=== PATIENT | female | born 1980 ===

== ENCOUNTER 2020-09-14 13:56 | Outpatient (REF) | payer OTHER, SELFPAY | END 2020-09-14 13:57 | disposition home or self-care (01) | LOC: HO.LAB 13:56 | PROVIDERS: Visit Provider Internal Medicine | DX: Z20.828 Contact with and (suspected) exposure to other viral communicable diseases (principal) | CPT/HCPCS: C9803; U0003 ==

== ENCOUNTER 2021-01-23 07:50 | Outpatient (REF) | payer BC, SELFPAY ==
[2021-01-23 10:29] LABS: SARS COV2 PCR INHOUSE POSITIVE (Negative)
== END 2021-01-23 07:51 | disposition home or self-care (01) ==
LOC: HO.LAB 07:50
PROVIDERS: Visit Provider Internal Medicine
DX: Z20.822 Contact with and (suspected) exposure to COVID-19 (principal)
CPT/HCPCS: C9803; U0003

== ENCOUNTER 2021-02-07 20:43 | Emergency (ER) | payer BC, SELFPAY ==
--- NOTE | ~2021-02-07 | US_ITS ---
EXAMINATION: US VENOUS ULTRASOUND WITH DOPPLER LOWER EXTREMITY, RIGHT CLINICAL INFORMATION: Right lower extremity swelling. COMPARISON: None TECHNIQUE: Ultrasound of the deep veins is performed from the hip to the calf with compression sonography and color and pulse Doppler assessment. Spectral analysis with color-flow imaging is performed. FINDINGS: There is normal venous compression and respiratory variation and augmented flow. The visualized common femoral vein, superficial femoral vein, profunda femoral vein, popliteal vein, and the trifurcation region shows no evidence of deep venous thrombosis. There is no significant popliteal fossa cyst. If the patient's symptoms persist, followup ultrasound in 5 days 7 days might be of value to exclude proximal propagation from a non-visualized calf vein. US/US venous duplex LE RT IMPRESSION: No DVT demonstrated in the right lower extremity.
[2021-02-07 20:48] VITALS: BP 132/86; PULSE 100; RESP 20; TEMP 36.6; O2SAT 97; BMI 51.5
--- NOTE | 2021-02-07 21:40 | ED_ITS ---
HPI - General Adult General Chief complaint: Extremity Injury, Lower Stated complaint: COVID + - FOOT SWELLING Time Seen by Provider: 02/07/21 21:26 Source: patient Mode of arrival: ambulatory Limitations: no limitations History of Present Illness HPI narrative: 40-year-old female who presents emergency department for evaluation of right leg swelling and pain after getting a cortisone shot earlier today at 2:00 p.m.. The patient states that she has a history of a meniscal root repair done 12/11/2019. The patient states that since the repair she has had persistent pain in her right knee gets cortisone shots every 3 months. She states she has had at least 6 cortisone shots with no complications. She states the initial knee surgery was complicated by right-sided DVT treated with Eliquis. Patient states that shortly after the cortisone shot she developed pain in her right knee, she describes the pain as a constant, dull ache with associated swelling of her right lateral calf muscle and knee. The pain is moderate in intensity. She did not take any pain medications prior to coming to the emergency department. She denies any increased warmth, chills or fever. She states that she does have some numbness in her right foot which has not happened in the past with cortisone injections. She states she has a history of asthma and was feeling short of breath today and she treated herself with her al buterol. The patient was diagnosed with COVID-19 infection on January 23, 2021. She states that she still has some fatigue but she believes that most her symptoms have resolved. Related Data Allergies Allergy/AdvReac Type Severity Reaction Status Date / Time Heparin Analogues Allergy Intermediate HIVES, Unverified 07/07/20 16:24 [HEPARIN AGENTS] RASH, SEVERE BRUISING Heparin Combination Allergy Unknown Uncoded 02/19/14 00:00 Review of Systems Review of Systems: Yes all other systems are reviewed and are negative PMFSH Past Medical History [facility] Narrative: Past medical history as below also includes right lower extremity DVT status post meniscal surgery, the patient denies tobacco, alcohol and drug use. Medical History Asthma Chiari malformation type II COVID-19 Diabetes Surgical History Hx of carpal tunnel repair Hx of knee surgery Hx of tonsillectomy Social History Social History Advance Directives: No Advance Directives Information Provided: Yes Physical Exam Vital Signs: Vital Signs: Last Vital Signs Temp 97.8 F 02/07/21 20:48 Pulse 100 02/07/21 20:48 Resp 20 02/07/21 20:48 BP 132/86 02/07/21 20:48 Pulse Ox 97 02/07/21 20:48 Body Mass Index 51.5 Const: General: cooperative and healthy appearing Nutritional Appearance: overweight Orientation/consciousness: oriented to person and oriented to place Limitations: no limitations HENMT: Head: Yes normal to inspection, Yes normocephalic and Yes atraumatic Ears: external ears normal General nose exam: Normal external nose present Face and sinus: Yes normal facial exam Mouth: Normal oral and palatal mucosa present Throat: Yes posterior oropharynx normal Eyes: Periorbital: periorbital findings normal Eyelids: Yes eyelids normal Conjunctivae: conjunctivae normal Sclerae: sclerae normal Corneas: corneas normal Pupils: Equal, round and reactive pupils present Direct Ophthalmoscopy: normal light reflex Neck: Neck: Yes full ROM, Yes no lymphadenopathy, Yes no meningeal signs, Yes trachea midline and Yes supple Chest: Chest palpation & inspection: normal inspection of the chest and normal palpation of entire chest wall Resp: Effort & Inspection: normal respiratory effort and able to speak in complete sentences Auscultation: clear to auscultation bilaterally Cardio: Rate: regular rate Rhythm: regular rhythm Heart sounds: S1 normal heart sound present, S2 normal heart sound present and no murmurs GI: Inspection: Yes normal to inspection Palpation (GI): Soft to palpation, nontender, no guarding, not rigid and No hepatosplenomegaly present : General: Yes no CVA tenderness Back/Spine/Pelvis: Back: no CVA tenderness Cervical Spine: normal cervical lordosis Thoracic/Lumbar Spine: thoracic and lumbar spine normal to inspection Skin: Lesions: no lesions Rashes: no rashes Wounds: no wounds Neuro: General: oriented to person, oriented to place and no meningeal signs Cranial nerves: Yes CN's II-XII intact bilaterally and Yes Equal, round and reactive pupils present Cognition (Neuro): normal cognition Motor exam (neuro): 5/5 motor strength present throughout Extrem: Other: There is a small ecchymotic area to the right lateral knee consistent with the site of injection, the patient's skin over the knee and calf is not warm to the touch, she does have some asymmetric swelling to the right lateral aspect of the calf, there are no palpable cords, no popliteal fossa fullness, negative Homans sign, neurovascular intact. There is a small linear laceration to the left pretibial area which the patient states she sustained today on a trash barrel, does not appear to be infected. General: Yes full ROM Psych: Appearance: well kempt Mental Status: mental status grossly normal Speech and movement: Normal speech and movement present Affect: normal affect Attitude: cooperative Thought process: Normal thought process present Thought content: Normal thought content present Course Course Course Narrative: 40-year-old female with a history right knee meniscal root repair 12/11/2019 with chronic right knee pain after the surgery who gets cortisone injections every 3 months to the right knee for her pain who presents to the emergency department for asymmetric right knee and past swelling after an injection today at 2:00 p.m.. Patient does have a history of DVT to the right leg which was a complication of the initial surgery. I did order a duplex ultrasound of the right lower extremity to rule out DVT. Patient's pain was treated with ibuprofen 600 mg orally. 1043: The patient's duplex ultrasound revealed no DVT. I did discuss this with the patient. The patient's pain is most likely a reaction to the cortisone shot I did discuss this with her. She was advised to take ibuprofen and Tylenol. I told her that if her pain is still there in 5 days then she will need a repeat d uplex ultrasound to rule out a propagating blood clot. She was given printed and verbal instructions. Discharge Plan Discharge Clinical Impression: Acute pain of right knee, Right calf pain Patient Disposition: Home, Self-Care Additional Instructions: The duplex ultrasound of your right leg revealed no blood clot at this time, this is very reassuring. The duplex ultrasound can miss very small blood clots from the knee down to the ankle, therefore if you still have pain in your right leg after 5 days then you need a repeat ultrasound to rule out a growing blood clot that may be traveling up your leg (propagating clot). If your doctor cannot arrange this repeat duplex ultrasound then come back to the emergency department for repeat duplex ultrasound. Take ibuprofen 200 mg pills, 3 pills every 6 hours as needed for pain. Take Tylenol (acetaminophen) 500 mg pills, 2 pills every 4 to 6 hours as needed for pain. Keep your right leg elevated and apply ice to the areas that hurt for 15 minutes 4 to 6 times a day for the next 2-3 days. Follow-up with your doctor in 2 days. Please return to the emergency department if your symptoms get worse or if you develop any symptoms that are concerning to you.
[2021-02-07] MEDS: Ibuprofen 600 MG TABLET PO (22:31)
== END 2021-02-07 22:55 | disposition home or self-care (01) ==
PROVIDERS: Emergency Provider Emergency Medicine Emergency Medical Services; PCP Internal Medicine
DX: M79.604 Pain in right leg (principal); M25.561 Pain in right knee; E11.9 Type 2 diabetes mellitus without complications; J45.909 Unspecified asthma, uncomplicated; Q07.00 Arnold-Chiari syndrome without spina bifida or hydrocephalus; Z86.16 Personal history of COVID-19
CPT/HCPCS: 93971; 99284

== ENCOUNTER 2021-10-23 09:18 | Outpatient (REF) | payer OTHER, SELFPAY ==
[2021-10-23 10:11] LABS: COVID-19 Test Negative (Negative)
== END 2021-10-23 09:19 | disposition home or self-care (01) ==
LOC: HO.LAB 09:18
PROVIDERS: Visit Provider Internal Medicine
DX: Z20.822 Contact with and (suspected) exposure to COVID-19 (principal)
CPT/HCPCS: 36415; 87635; C9803

== ENCOUNTER 2021-10-26 14:40 | Emergency (ER) | payer OTHER, SELFPAY ==
--- NOTE | 2021-10-26 | ECG_ITS ---
Test Reason : CHEST PAIN/ASTHMA Blood Pressure : / mmHG Vent. Rate : 092 BPM Atrial Rate : 092 BPM P-R Int : 120 ms QRS Dur : 078 ms QT Int : 344 ms P-R-T Axes : 038 010 028 degrees QTc Int : 425 ms Normal sinus rhythm Normal ECG When compared with ECG of 28-MAR-2020 12:09, No significant change was found Referred By: Generic ED Physician Electronically Signed By:MATEO MATOS MD
--- NOTE | ~2021-10-26 | XR_ITS ---
EXAMINATION: XR CHEST CLINICAL INFORMATION: Cough COMPARISON: 03/28/2020 TECHNIQUE: Frontal view of the chest was obtained. FINDINGS: No significant abnormality is noted involving the heart, lungs, mediastinum, bony thorax or soft tissues. XR/XR chest 1V IMPRESSION: Unremarkable examination.
[2021-10-26 15:33] VITALS: BP 154/84; PULSE 90; RESP 18; TEMP 37.1; O2SAT 100; BMI 52.1
[2021-10-26 16:09] LABS: COVID-19 Test Negative (Negative); IDNOW Serial# 9DD0AD1C
[2021-10-27 01:17] LABS: MANUAL DIFF FLAG NO
[2021-10-27 01:18] LABS: Basophils Percent Auto 0.5 % (0-2); Eosinophils Absolute Auto 0.4 X10*3/uL (0.0-0.4); Eosinophils Percent Auto 5.1 % (0-4); Hematocrit 43.4 % (37.0-47.0); Hemoglobin 14.7 g/dl (12.0-16.0); Imm Gran Abs Auto 0.04 X10*3/uL (0.00-0.03); Imm Gran Pct Auto 0.5 % (0.0-0.4); Lymphocytes Absolute Auto 2.9 X10*3/uL (1.2-4.9); Lymphocytes Percent Auto 34.6 % (20-40); Mean Corpuscular HGB Conc 33.9 g/dl (31.0-35.0); Mean Corpuscular Hemoglobin 30.4 pg (27.0-33.0); Mean Corpuscular Volume 89.7 fL (80.0-98.0); Mean Platelet Volume 9.4 fL (9.4-12.3); Monocytes Absolute Auto 0.6 X10*3/uL (0.1-1.2); Monocytes Percent Auto 7.3 % (2-11); Neutrophils Absolute Auto 4.4 x10*3/uL (2.0-8.3); Platelet Count 263 X10*3/uL (160-400); Red Blood Count 4.84 X10*6/uL (4.20-5.50); White Blood Count 8.5 X10*3/uL (4.8-10.8)
[2021-10-27 01:37] LABS: Anion Gap 12 (12-20); Blood Urea Nitrogen 8 mg/dL (9-16); Calcium 9.7 mg/dL (8.4-10.2); Carbon Dioxide 24 mmol/L (22-29); Chloride 106 mmol/L (96-108); Estimated Glomerular Filt Rate > 60; Glucose Random 276 mg/dL (60-115); Potassium 4.2 mmol/L (3.3-5.1); Sodium 138 mmol/L (135-145)
[2021-10-27 01:47] LABS: Troponin-I High Sensitivity < 3.5 ng/L (<3.5-17.0)
== END 2021-10-27 03:02 | disposition left against medical advice (07) ==
PROVIDERS: Emergency Provider Emergency Medicine; PCP Internal Medicine
DX: R07.9 Chest pain, unspecified (principal); Z20.822 Contact with and (suspected) exposure to COVID-19; J45.909 Unspecified asthma, uncomplicated
CPT/HCPCS: 36415; 71045; 80048; 84484; 85025; 87635; 93005; 99283

== ENCOUNTER 2021-10-29 11:47 | Emergency (ER) | payer OTHER, SELFPAY ==
--- NOTE | ~2021-10-29 | XR_ITS ---
EXAMINATION: XR CHEST CLINICAL INFORMATION: Dyspnea. COMPARISON: None TECHNIQUE: 2 views of the chest were obtained. FINDINGS: No significant abnormality is noted involving the heart, lungs, mediastinum, bony thorax or soft tissues. XR/XR chest 2V IMPRESSION: Unremarkable chest examination.
[2021-10-29 11:59] VITALS: BP 151/79; PULSE 91; RESP 20; TEMP 36; O2SAT 98; BMI 52.1
--- NOTE | 2021-10-29 12:26 | ED.ASTHMA ---
HPI - Asthma General Chief Complaint: Dyspnea Stated Complaint: Asthma Time Seen by Provider: 10/29/21 12:18 Source: patient Mode of arrival: ambulatory Limitations: no limitations History of Present Illness HPI Narrative: 41-year-old female with a past medical of history of asthma who currently uses albuterol inhaler and albuterol nebulizers presenting to the ED with complaints of acute exacerbation of her asthma for the past 2 weeks worse today. Reports that she is having a dry cough with wheezing/chest tightness for the past 2 weeks despite using her albuterol inhaler nebulizers that are not working at this time. She believes that she may need a course of steroids. She reports that she has been hospitalized multiple times for asthma in the past although has not been hospitalized in a while. Denies ever being intubated for asthma. She reports that her daughters both are at home positive for COVID. Although she does not believe she has COVID. She believes this is just an asthma exacerbation. She denies any fevers, chills, dizziness, headaches, neck pain/stiffness, trouble swallowing, nasal congestion/rhinorrhea, palpitations, chest pain, dizziness vision, orthopnea, nausea/vomiting/diarrhea abdominal pain, lower extremity edema or calf tenderness, weakness, recent travel or any other symptoms complaints or concerns at this time. MD complaint: asthma attack , shortness of breath and wheezing Onset (ago): week(s) (2) Severity: moderate Associated symptoms: dry cough Asthma History: childhood onset, history of frequent attacks and history of prior ED visit Treatments Prior to Arrival: inhaled bronchodilator and inhaled steroid Related Data Current Asthma Therapy: inhaled bronchodilator and inhaled steroid Previous Rx's Medication Instructions Recorded albuterol sulfate 0.63 mg/3 mL 0.63 mg (3 mL) INHALATION QID PRN 10/29/21 solution for nebulization #75 ml albuterol sulfate 90 mcg/actuation 1 inh INHALATION QID PRN #8.5 g 10/29/21 aerosol inhaler azithromycin 250 mg tablet See Rx Instructions .ROUTE 10/29/21 .COMPLEX #6 tab codeine 10 mg-guaifenesin 100 mg/5 5 ml PO Q6H PRN #120 ml 10/29/21 mL oral liquid (Guaifenesin AC) prednisone 20 mg tablet 40 mg PO DAILY 5 Days #10 tab 10/29/21 Allergies Allergy/AdvReac Type Severity Reaction Status Date / Time Heparin Analogues Allergy Intermediate HIVES, Verified 10/26/21 15:33 [HEPARIN AGENTS] RASH, SEVERE BRUISING Heparin Combination Allergy Unknown Hives Uncoded 10/26/21 15:33 Review of Systems Review of Systems: Constitutional : denies med noncompliance, no history of PE or DVT, denies recent travel, No Fever, No Chills ENT/Mouth : No Hoarseness, + sore throat, No Rhinorrhea, No Nasal congestion, No Sinus Pressure, No Ear Pain, No stridor, Eyes: No Redness, No Discharge, No Vision Changes Cardiovascular : No Chest Pain, + SOB, No Dyspnea on Exertion, No Edema, no pleurisy, Respiratory : + Cough, + wheezing, No Sputum, no stridor, no hemoptysis, Gastrointestinal : No Nausea, No Vomiting, No Diarrhea, No abdominal Pain Genitourinary : No Dysuria, No Hematuria Musculoskeletal : No joint pain/swelling, No Myalgias Extremities: no extremity swelling /pain Skin : No rash, no itching, no swelling Neuro : No Weakness, No Numbness, No Headache, No Dizziness, No Paresthesias Psych : No anxiety, depression Heme/Lymph: No Bruising, No Bleeding Endocrine : No Polyuria, No Polydipsia Yes all other systems are reviewed and are negative [facility] Past Medical History Attestation statement: The following information was validated with the patient. Medical History (Updated 10/29/21 @ 13:25 by TITUS Burton) Asthma Chiari malformation type II COVID-19 Diabetes Surgical History Hx of carpal tunnel repair Hx of knee surgery Hx of tonsillectomy Social History Social History Advance Directives: No Advance Directives Information Provided: Yes Physical Exam Vital Signs: Vital Signs: Last Vital Signs Temp 96.8 F 10/29/21 11:59 Pulse 91 10/29/21 11:59 Resp 20 10/29/21 11:59 BP 151/79 H 10/29/21 11:59 Pulse Ox 98 10/29/21 11:59 BMI result Body Mass Index 52.1 vital signs have been reviewed as normal and appeared to be correct. Blood pressure 151/79. Heart rate normal. Respiration rate normal. Temperature normal. Oxygen saturation normal. Appearance: Alert. Oriented X3. No acute distress. Head: Normal external exam. Normocephalic. Atraumatic. Eyes: PERRLA. EOMI. Conjunctiva and sclera normal. Eyelids normal. ENT: EAC normal. TM's Normal. Pharynx normal. Uvula midline. Moist mucous membranes. No trismus noted. No drooling noted. No muffled voice noted. Neck: Normal inspection. Neck supple. FROM. No adenopathy. Thyroid Normal. No meningeal signs. No neck mass noted. CVS: Normal heart rate and rhythm. Heart sound normal. Pulses normal throughout. No murmurs/rales/gallops. Respiratory: No respiratory distress. Painless inspiration. Breath sounds normal. No wheezes/rales/rhonchi noted. Chest nontender. No accessory muscle usage noted or decreased air movement noted. Abdomen: Soft and nontender. Bowel sounds normal in all 4 quadrants. No distention noted. No organomegaly noted. No visible injury noted. Back: No CVA tenderness. Full range of motion noted. No rashes/lesion/induration/fluctuance or signs of infection noted. Skin: Skin warm and dry. Normal skin color. Normal skin turgor. No rashes/lesions/lacerations noted. Extremities: No lower extremity edema. No calf tenderness. Extremities exhibit normal range of motion. Extremities nontender. Neuro: Oriented X 3. No motor deficit. No sensory deficit. Reflexes normal. Normal steady gait. No focal neuro deficits noted. Vascular: + radial pulses/+ 2 distal pedal pulses/+2 dorsalis pedis b/l. Normal cap refill. No cyanosis noted to upper extremity nails and lower extremity toes nails. Course Course Course Narrative: 41-year-old female with a past medical of history of asthma who currently uses albuterol inhaler and albuterol nebulizers presenting to the ED with complaints of acute exacerbation of her asthma for the past 2 weeks worse today. Reports that she is having a dry cough with wheezing/chest tightness for the past 2 weeks despite using her albuterol inhaler nebulizers that are not working at this time. She believes that she may need a course of steroids. She reports that she has been hospitalized multiple times for asthma in the past although has not been hospitalized in a while. Denies ever being intubated for asthma. She reports that her daughters both are at home positive for COVID. Although she does not believe she has COVID. She believes this is just an asthma exacerbation. She denies any fevers, chills, dizziness, headaches, neck pain/stiffness, trouble swallowing, nasal congestion/rhinorrhea, palpitations, chest pain, dizziness vision, orthopnea, nausea/vomiting/diarrhea abdominal pain, lower extremity edema or calf tenderness, weakness, recent travel or any other symptoms complaints or concerns at this time. On exam patient is alert oriented x3. Not in any acute distress. Lungs clear to auscultation. CV RRR. Abdomen is soft nontender. No lower extremity edema or calf tenderness is noted. Therefore at this time will obtain a chest x-ray and COVID swab. If negative will DC home with symptomatic treatment for asthma instructions to self isolate due to positive close exposure to COVID in her household her 2 daughters are currently positive to follow CDC guidelines and to return if any new or worsening symptoms follow up with primary care provider. Patient understands agrees with this plan. [facility] - Asthma Medical Records Attestation: I reviewed the patient's medical records. Lab Data Attestation: I reviewed the patient's lab results. Labs: Lab Results 10/29/21 Range/Units 12:21 COVID-19 (BRIAN) Negative (Negative) COVID-19 Clin Com See Note Imaging Data Chest x-ray: Attestation: I personally reviewed and interpreted this imaging study as follows: Radiologist's impression: FINDINGS: No significant abnormality is noted involving the heart, lungs, mediastinum, bony thorax or soft tissues. XR/XR chest 2V IMPRESSION: Unremarkable chest examination. Discharge Plan Discharge Clinical Impression: Asthma with exacerbation, Acute bronchitis with bronchospasm Patient Disposition: Home, Self-Care Instructions: Acute Bronchitis (ED), Asthma (ED) Additional Instructions: Please follow CDC guidelines for COVID 19 restrictions/quarantine Prescriptions: New albuterol sulfate 0.63 mg/3 mL solution for nebulization 0.63 mg inhalation QID PRN (Reason: shortness of breath or wheezing) Qty: 75 RF: 0 albuterol sulfate 90 mcg/actuation HFA aerosol inhaler 1 inh inhalation QID PRN (Reason: shortness of breath or wheezing) Qty: 8.5 RF: 0 azithromycin 250 mg tablet See Rx Instructions .ROUTE .COMPLEX Qty: 6 RF: 0 prednisone 20 mg tablet 40 mg PO DAILY 5 Days Qty: 10 RF: 0 codeine-guaifenesin [Guaifenesin AC] 10-100 mg/5 mL liquid 5 ml PO Q6H PRN (Reason: cold symptoms) Qty: 120 RF: 0 Referrals: Jonna Carvalho MD [Primary Care Provider] - 2 days Stand Alone Forms: Work/School Release Print Language: Argentine
[2021-10-29 12:45] LABS: COVID-19 Test Negative (Negative)
== END 2021-10-29 13:46 | disposition home or self-care (01) ==
PROVIDERS: Emergency Provider Internal Medicine; PCP Internal Medicine
DX: J45.901 Unspecified asthma with (acute) exacerbation (principal); J20.9 Acute bronchitis, unspecified; Z20.822 Contact with and (suspected) exposure to COVID-19
CPT/HCPCS: 71046; 87635; 99283

== ENCOUNTER 2021-12-08 11:23 | Emergency (ER) | payer BC, SELFPAY ==
--- NOTE | ~2021-12-08 | CT_ITS ---
EXAMINATION: CT HEAD WITHOUT CONTRAST CLINICAL INFORMATION: Headache. COMPARISON: MR brain dated from 12/17/2018. TECHNIQUE: Contiguous axial imaging was performed from the skull base to vertex without intravenous administration of contrast. This CT examination was performed using dose optimization techniques as appropriate, variously including the following: *Automated exposure control *Adjustment of mA and/or kV according to patient size (this includes techniques or standardized protocols for targeted exams where dose is matched to indication/reason for exam; i.e. extremities or head) *Use of iterative reconstruction technique DLP: 791 mGy-cm FINDINGS: There is no evidence of acute intracranial hemorrhage or edematous territorial infarction. There is no abnormal attenuation within the brain parenchyma. Bhakta-white matter differentiation is preserved. The ventricles are normal in size and configuration. No evidence for obstructive hydrocephalus. No abnormal mass effect or midline shift. Redemonstration of low-lying cerebellar tonsils extending approximately 5 mm below the foramen magnum, unchanged. No extra-axial fluid collections. No acute soft tissue or osseous abnormalities. The mastoid air cells and paranasal sinuses are clear. CT/CT head/brain wo con IMPRESSION: No evidence of acute intracranial hemorrhage or edematous territorial infarction.
[2021-12-08 11:57] VITALS: BP 144/90; PULSE 92; RESP 18; TEMP 36.7; O2SAT 98; BMI 47.5
[2021-12-08 17:02] VITALS: BP 131/83; PULSE 88; RESP 18; TEMP 36.9; O2SAT 96
--- NOTE | 2021-12-08 17:13 | ECG_ITS ---
Test Reason : HEADACHE Blood Pressure : / mmHG Vent. Rate : 091 BPM Atrial Rate : 091 BPM P-R Int : 146 ms QRS Dur : 074 ms QT Int : 372 ms P-R-T Axes : 043 -04 026 degrees QTc Int : 457 ms Normal sinus rhythm Normal ECG When compared with ECG of 26-OCT-2021 16:10, No significant change was found Referred By: Gaby Winkler Electronically Signed By:MATEO MATOS MD
--- NOTE | 2021-12-08 17:17 | ED.HA ---
HPI - Headache General Chief Complaint: Headache Stated Complaint: passing out headaches Time Seen by Provider: 12/08/21 16:29 Source: patient Mode of arrival: ambulatory Limitations: no limitations History of Present Illness HPI Narrative: 41-year-old female with a history of asthma, diet-controlled diabetes, Chiari malformation here with reports of 3-4 weeks of headaches which are generalized described as pressure with light sensitivity, nausea and intermittent blurry vision. No dizziness, vomiting, neck pain, fevers, chills. Patient tells me that the headache does improve with Tylenol and/or Excedrin at home. However does not ever completely resolved. No recent injury or trauma. Patient tells me that she did have 2 episodes of what she describes as ?passing out? which occurred while resting and not movement. No associated dizziness, palpitations, shortness of breath, vomiting, diaphoresis. Related Data Previous Rx's Medication Instructions Recorded albuterol sulfate 0.63 mg/3 mL 0.63 mg (3 mL) INHALATION QID PRN 10/29/21 solution for nebulization #75 ml albuterol sulfate 90 mcg/actuation 1 inh INHALATION QID PRN #8.5 g 10/29/21 aerosol inhaler azithromycin 250 mg tablet See Rx Instructions .ROUTE 10/29/21 .COMPLEX #6 tab codeine 10 mg-guaifenesin 100 mg/5 5 ml PO Q6H PRN #120 ml 10/29/21 mL oral liquid (Guaifenesin AC) prednisone 20 mg tablet 40 mg PO DAILY 5 Days #10 tab 10/29/21 metformin 500 mg tablet 500 mg PO BID #60 tab 12/08/21 Allergies Allergy/AdvReac Type Severity Reaction Status Date / Time Heparin Analogues Allergy Intermediate HIVES, Verified 10/26/21 15:33 [HEPARIN AGENTS] RASH, SEVERE BRUISING Heparin Combination Allergy Unknown Hives Uncoded 10/26/21 15:33 Review of Systems Review of Systems: Yes all other systems are reviewed and are negative Constitutional: Constitutional: Reports no additional constitutional complaints, Denies body ache(s), Denies chills, Denies fever(s), Reports headache(s) and Denies weakness Eyes: Eyes: Reports no additional eye complaints, Reports blurry vision, Denies change in vision and Reports photophobia ENT: Reports system reviewed and no additional complaints, except as documented, Denies dizziness, Reports headache(s), Denies nasal congestion, Denies nasal discharge and Denies neck pain Cardiovascular: Cardiovascular: Reports no additional cardiovascular complaints, Denies chest pain, Denies leg edema and Denies dyspnea Respiratory: Respiratory: Reports no additional respiratory complaints, Denies cough and Denies dyspnea Gastrointestinal: Gastrointestinal: Reports no additional gastrointestinal complaints, Denies abdominal pain, Denies diarrhea, Reports nausea and Denies vomiting Genitourinary: Genitourinary: Reports no additional female genitourinary complaints and Denies urinary incontinence Musculoskeletal: Musculoskeletal: Reports no additional musculoskeletal complaints, Denies back pain, Denies arthralgias, Denies joint swelling, Denies neck pain, Denies numbness and Denies tingling Integumentary/Breasts: Skin/Breast: Reports system reviewed and no additional complaints, except as docu and Denies rash Neurologic: Reports system reviewed and no additional complaints, except as documented, Denies Abnormal speech present, Denies dizziness, Reports headache(s), Denies numbness, Denies tingling and Denies weakness PMFSH Past Medical History Attestation statement: The following information was validated with the patient. Source: old records reviewed and nursing notes reviewed Medical History Asthma Chiari malformation type II COVID-19 Diabetes Surgical History Hx of carpal tunnel repair Hx of knee surgery Hx of tonsillectomy Social History Social History Alcohol intake: never Use of substances other than those prescribed or required for medical reasons: No Advance Directives: Yes Advance Directives Information Provided: Yes Advance Directives on File: No Physical Exam Vital Signs: Vital Signs: Last Vital Signs Temp 98.5 F 12/08/21 17:02 Pulse 94 12/08/21 17:45 Resp 18 12/08/21 17:02 BP 138/77 12/08/21 17:45 Pulse Ox 96 12/08/21 17:02 BMI result Body Mass Index 47.5 Const: General: cooperative, healthy appearing, comfortable and no acute distress Orientation/consciousness: patient oriented x3 Limitations: no limitations HENMT: Head: Yes normal to inspection Ears: hearing grossly normal bilaterally and TM's normal bilaterally General nose exam: Normal external nose present Face and sinus: Yes normal facial exam Mouth: Normal oral and palatal mucosa present Throat: Yes posterior oropharynx normal, Yes tonsils normal and Yes uvula midline Eyes: General: appearance normal, both eyes and all related structures Visual De Los Santos: normal visual de los santos by confrontation Alignment and Position: alignment normal Periorbital: periorbital findings normal Eyelids: Yes eyelids normal Conjunctivae: conjunctivae normal Sclerae: sclerae normal Corneas: corneas normal Pupils: Equal, round and reactive pupils present EOM: EOMs intact bilaterally Direct Ophthalmoscopy: photophobia Neck: Neck: Yes normal visual inspection, Yes full ROM, Yes no lymphadenopathy and Yes no meningeal signs Chest: Chest palpation & inspection: normal inspection of the chest Resp: Effort & Inspection: normal respiratory effort Auscultation: clear to auscultation bilaterally Cardio: Rate: regular rate Rhythm: regular rhythm Peripheral pulses: Peripheral pulses 2+ throughout GI: Inspection: Yes normal to inspection Palpation (GI): Soft to palpation and nontender Auscultation: normal bowel sounds Back/Spine/Pelvis: Thoracic/Lumbar Spine: thoracic and lumbar spine normal to inspection Skin: General skin exam: no rashes or lesions noted Neuro: General: patient oriented x3, no meningeal signs, no focal motor deficits and normal sensation to monofilament Cranial nerves: Yes CN's II-XII intact bilaterally, Yes Equal, round and reactive pupils present, Yes Bilaterally intact EOM present, Yes Nystagmus not present, Yes Normal facial strength present and Yes Midline tongue present Cognition (Neuro): normal cognition Speech: No Abnormal speech present Gait exam (Neuro): Normal gait present Motor exam (neuro): 5/5 motor strength present throughout Sensory Exam: Normal double simultaneous stimulation for sensation Coordination: [id number] test normal, [id number] test normal and tandem gait normal Extrem: General: Yes normal to inspection Course Course Course Narrative: 41 yo female with history of chiari malformation here with reports of generalized headache, photophobia, nausea, intermittent blurry vision over the last several weeks. Patient reports headaches constant although it does improve with Tylenol and or Excedrin at home. Patient reports she had 2 episodes of passing out yesterday which occurred at rest. Patient tells me ?it felt like I fell asleep for a moment?. No preceding symptoms of palpitations, shortness of breath, chest pain or headache. No associated seizure activity or incontinence. Vitals are stable Neurological exam is normal. Will check CT head, labs, EKG, orthostatic vital signs Will treat with Reglan, Benadryl, fluids and re-assess. 1844-labs are unremarkable with the exception of mild hyperglycemia at 311. No evidence of DKA. CT head shows Chiari malformation unchanged from previous. Orthostatics are negative. Patient tells me her headache is improving with IV fluids and medications. Likely secondary to hyperglycemia. Patient tells me that she had been on metformin for some time but then discontinued this. She has been trying to control her diet to help with her blood sugars. I did discuss with the patient that we should start her on a low-dose metformin. Will speak to her on-call primary from [facility] to ensure appropriate follow-up 1899-Spoke to professional nursing assistant for [facility]. Patient had previously been on glipizide, metformin and Victoza but has not followed up since June of 2020. Her last A1c was 8.7 03/2020. We discussed that I will start the patient on metformin twice daily and have her follow-up with them next week in the office. 2029-headache resolved. Blood sugar is trending down. We discussed it is critical that she follow-up outpatient with her primary care doctor. Reviewed worrisome signs and symptoms of when to return to the emergency department. Comfortable discharge home. MDM - Headache Medical Records Attestation: I reviewed the patient's medical records. Lab Data Attestation: I reviewed the patient's lab results. Result diagrams: 12/08/21 17:34 12/08/21 17:34 Labs: Lab Results 12/08/21 12/08/21 12/08/21 Range/Units 17:34 17:34 17:34 WBC 10.6 (4.8-10.8) X10*3/uL RBC 4.94 (4.20-5.50) X10*6/uL Hgb 15.2 (12.0-16.0) g/dl Hct 43.4 (37.0-47.0) % MCV 87.9 (80.0-98.0) fL MCH 30.8 (27.0-33.0) pg MCHC 35.0 (31.0-35.0) g/dl RDW 12.0 (11.0-16.0) % Plt Count 295 (160-400) X10*3/uL MPV 9.5 (9.4-12.3) fL Immature Gran % (Auto) 0.9 H (0.0-0.4) % Neut % (Auto) 59.1 (45-73) % Lymph % (Auto) 30.4 (20-40) % Luce % (Auto) 6.3 (2-11) % Eos % (Auto) 2.8 (0-4) % Baso % (Auto) 0.5 (0-2) % Lymph # (Auto) 3.2 (1.2-4.9) X10*3/uL Luce # (Auto) 0.7 (0.1-1.2) X10*3/uL Eos # (Auto) 0.3 (0.0-0.4) X10*3/uL Baso # (Auto) 0.1 (0.0-0.2) X10*3/uL Abs Immat Gran (auto) 0.10 H (0.00-0.03) X10*3/uL Absolute Neuts (auto) 6.2 (2.0-8.3) x10*3/uL Absolute Nucleated RBC 0.000 (0.0-0.012) X10*3/uL Nucleated RBC % (auto) 0.0 (0.0-0.2) /100WBC Sodium 135 (135-145) mmol/L Potassium 4.3 (3.3-5.1) mmol/L Chloride 102 (96-108) mmol/L Carbon Dioxide 25 (22-29) mmol/L Anion Gap 12 (12-20) BUN 8 L (9-16) mg/dL Creatinine 0.70 (0.5-1.4) mg/dL Estim Creat Clear Calc 114.4 Estimated GFR > 60 POC Glucose (60-115) mg/dL Random Glucose 311 H (60-115) mg/dL Calcium 9.3 (8.4-10.2) mg/dL Magnesium 1.9 (1.6-2.6) mg/dL Total Bilirubin 0.8 (0.0-1.0) mg/dL Direct Bilirubin 0.3 (0.0-0.5) mg/dL AST 30 (5-31) U/L ALT 70 H (0-31) U/L Alkaline Phosphatase 86 (39-117) U/L Troponin I High Sens < 3.5 (<3.5-17.0) ng/L Total Protein 6.8 (6.5-8.0) g/dL Albumin 4.2 (3.5-5.0) g/dL Urine Test (NEGATIVE) COVID-19 (BRIAN) (Negative) COVID-19 Clin Com 12/08/21 12/08/21 12/08/21 Range/Units 17:34 17:34 19:48 WBC (4.8-10.8) X10*3/uL RBC (4.20-5.50) X10*6/uL Hgb (12.0-16.0) g/dl Hct (37.0-47.0) % MCV (80.0-98.0) fL MCH (27.0-33.0) pg MCHC (31.0-35.0) g/dl RDW (11.0-16.0) % Plt Count (160-400) X10*3/uL MPV (9.4-12.3) fL Immature Gran % (Auto) (0.0-0.4) % Neut % (Auto) (45-73) % Lymph % (Auto) (20-40) % Luce % (Auto) (2-11) % Eos % (Auto) (0-4) % Baso % (Auto) (0-2) % Lymph # (Auto) (1.2-4.9) X10*3/uL Luce # (Auto) (0.1-1.2) X10*3/uL Eos # (Auto) (0.0-0.4) X10*3/uL Baso # (Auto) (0.0-0.2) X10*3/uL Abs Immat Gran (auto) (0.00-0.03) X10*3/uL Absolute Neuts (auto) (2.0-8.3) x10*3/uL Absolute Nucleated RBC (0.0-0.012) X10*3/uL Nucleated RBC % (auto) (0.0-0.2) /100WBC Sodium (135-145) mmol/L Potassium (3.3-5.1) mmol/L Chloride (96-108) mmol/L Carbon Dioxide (22-29) mmol/L Anion Gap (12-20) BUN (9-16) mg/dL Creatinine (0.5-1.4) mg/dL Estim Creat Clear Calc Estimated GFR POC Glucose 280 H (60-115) mg/dL Random Glucose (60-115) mg/dL Calcium (8.4-10.2) mg/dL Magnesium (1.6-2.6) mg/dL Total Bilirubin (0.0-1.0) mg/dL Direct Bilirubin (0.0-0.5) mg/dL AST (5-31) U/L ALT (0-31) U/L Alkaline Phosphatase (39-117) U/L Troponin I High Sens (<3.5-17.0) ng/L Total Protein (6.5-8.0) g/dL Albumin (3.5-5.0) g/dL Urine Test NEGATIVE (NEGATIVE) COVID-19 (BRIAN) Negative (Negative) COVID-19 Clin Com See Note Imaging Data CT scan - head: Attestation: I personally reviewed and interpreted this imaging study as follows: Radiologist's impression: FINDINGS: There is no evidence of acute intracranial hemorrhage or edematous territorial infarction. There is no abnormal attenuation within the brain parenchyma. Bhakta-white matter differentiation is preserved. The ventricles are normal in size and configuration. No evidence for obstructive hydrocephalus. No abnormal mass effect or midline shift. Redemonstration of low-lying cerebellar tonsils extending approximately 5 mm below the foramen magnum, unchanged. No extra-axial fluid collections. No acute soft tissue or osseous abnormalities. The mastoid air cells and paranasal sinuses are clear. ? CT/CT head/brain wo con IMPRESSION: No evidence of acute intracranial hemorrhage or edematous territorial infarction. ECG Data Attestation: I personally reviewed and interpreted this ECG as follows: ECG interpretation date: 12/08/21 ECG interpretation time: 17:24 Interpretation: Normal sinus rhythm with a rate of 91, normal KS, normal QRS, normal QT Discharge Plan Discharge Clinical Impression: Hyperglycemia Patient Disposition: Home, Self-Care Instructions: Diabetic Hyperglycemia (ED) Additional Instructions: YOU NEED TO CALL YOUR PRIMARY CARE DOCTOR AND FOLLOW-UP WITH THEM NEXT WEEK Your blood sugar is very elevated which is likely why you are having symptoms of headache and blurry vision. Your CT scan shows your Chiari malformation is unchanged. Your additional lab work all looks very good. You need to follow-up closely with your primary care doctor. Uncontrolled high blood sugar is very dangerous Prescriptions: New metformin 500 mg tablet 500 mg PO BID Qty: 60 0RF No Action albuterol sulfate 0.63 mg/3 mL solution for nebulization 0.63 mg inhalation QID PRN (Reason: shortness of breath or wheezing) Qty: 75 0RF albuterol sulfate 90 mcg/actuation HFA aerosol inhaler 1 inh inhalation QID PRN (Reason: shortness of breath or wheezing) Qty: 8.5 0RF azithromycin 250 mg tablet See Rx Instructions .ROUTE .COMPLEX Qty: 6 0RF Rx Instructions: take 500 mg today (day 1), then 250 mg for 4 days (days 2-5) prednisone 20 mg tablet 40 mg PO DAILY 5 Days Qty: 10 0RF codeine-guaifenesin [Guaifenesin AC] 10-100 mg/5 mL liquid 5 ml PO Q6H PRN (Reason: cold symptoms) Qty: 120 0RF Referrals: Jonna Carvalho MD [Primary Care Provider] - 1 week Interventions: ED Discharge Assessment Last Done: 12/08/21 20:24 Discharge Date/Time: 12/08/21 20:25
[2021-12-08] MEDS: 0.9 % Sodium Chloride 1,000 ML 999 ML IV (17:37)
[2021-12-08] MEDS: diphenhydrAMINE HCL 50 MG/ML VIAL 25 MG IVPUSH (17:38)
[2021-12-08 17:39] VITALS: BP 128/62; PULSE 88
[2021-12-08] MEDS: Metoclopramide HCl 10 MG/2 ML VIAL IVPUSH (17:39)
[2021-12-08 17:42] VITALS: BP 138/74; PULSE 81
[2021-12-08 17:45] VITALS: BP 138/77; PULSE 94
--- NOTE | 2021-12-08 17:46 | PC.NURSE ---
slight dizziness with orthos but able to complete. skin pwd. c/o headache. sound and photosensativity. no neuro deficits.
[2021-12-08 17:55] LABS: MANUAL DIFF FLAG NO
[2021-12-08 17:58] LABS: UPreg QC Valid YES; Urine Pregnancy NEGATIVE (NEGATIVE)
[2021-12-08 18:10] LABS: COVID-19 Test Negative (Negative)
[2021-12-08 18:15] LABS: Basophils Absolute Auto 0.1 X10*3/uL (0.0-0.2); Basophils Percent Auto 0.5 % (0-2); Eosinophils Absolute Auto 0.3 X10*3/uL (0.0-0.4); Eosinophils Percent Auto 2.8 % (0-4); Hematocrit 43.4 % (37.0-47.0); Hemoglobin 15.2 g/dl (12.0-16.0); Imm Gran Pct Auto 0.9 % (0.0-0.4); Lymphocytes Absolute Auto 3.2 X10*3/uL (1.2-4.9); Lymphocytes Percent Auto 30.4 % (20-40); Mean Corpuscular Hemoglobin 30.8 pg (27.0-33.0); Mean Corpuscular Volume 87.9 fL (80.0-98.0); Mean Platelet Volume 9.5 fL (9.4-12.3); Monocytes Absolute Auto 0.7 X10*3/uL (0.1-1.2); Monocytes Percent Auto 6.3 % (2-11); Neutrophils Absolute Auto 6.2 x10*3/uL (2.0-8.3); Neutrophils Percent Auto 59.1 % (45-73); Platelet Count 295 X10*3/uL (160-400); Red Blood Count 4.94 X10*6/uL (4.20-5.50); White Blood Count 10.6 X10*3/uL (4.8-10.8)
[2021-12-08 18:16] LABS: Alanine Aminotransferase 70 U/L (0-31); Albumin Level 4.2 g/dL (3.5-5.0); Alkaline Phosphatase 86 U/L (39-117); Anion Gap 12 (12-20); Aspartate Amino Transferase 30 U/L (5-31); Bilirubin Direct 0.3 mg/dL (0.0-0.5); Bilirubin Total 0.8 mg/dL (0.0-1.0); Blood Urea Nitrogen 8 mg/dL (9-16); Calcium 9.3 mg/dL (8.4-10.2); Carbon Dioxide 25 mmol/L (22-29); Chloride 102 mmol/L (96-108); Creatinine Clr Calc Pharmacy 114.4; Estimated Glomerular Filt Rate > 60; Glucose Random 311 mg/dL (60-115); Magnesium 1.9 mg/dL (1.6-2.6); Potassium 4.3 mmol/L (3.3-5.1); Sodium 135 mmol/L (135-145); Total Protein 6.8 g/dL (6.5-8.0)
[2021-12-08 18:18] LABS: Troponin-I High Sensitivity < 3.5 ng/L (<3.5-17.0)
--- NOTE | 2021-12-08 18:18 | PC.NURSE ---
head is resolving. pt resting with eyes closed.
[2021-12-08 19:51] LABS: Glucose, Whole Blood 280 mg/dL (60-115)
== END 2021-12-08 20:25 | disposition home or self-care (01) ==
PROVIDERS: Nurse Practitioner Family; Emergency Provider Emergency Medicine; PCP Internal Medicine
DX: E11.65 Type 2 diabetes mellitus with hyperglycemia (principal); R51.9 Headache, unspecified; Z20.822 Contact with and (suspected) exposure to COVID-19; Q07.00 Arnold-Chiari syndrome without spina bifida or hydrocephalus
CPT/HCPCS: 36415; 70450; 80048; 80076; 81025; 82947; 83735; 84484; 85025; 87635; 93005; 96361; 96374; 96375; 99284; 99285; J1200; J2765

== ENCOUNTER 2021-12-22 12:10 | Emergency (ER) | payer BC, SELFPAY ==
--- NOTE | ~2021-12-22 | US_ITS ---
EXAMINATION: US VENOUS ULTRASOUND WITH DOPPLER LOWER EXTREMITY, RIGHT CLINICAL INFORMATION: Right leg pain COMPARISON: February 07, 2021 TECHNIQUE: Ultrasound of the deep veins is performed from the hip to the calf with compression sonography and color and pulse Doppler assessment. Spectral analysis with color-flow imaging is performed. FINDINGS: There is normal venous compression and respiratory variation and augmented flow. The visualized common femoral vein, superficial femoral vein, profunda femoral vein, popliteal vein, and the trifurcation region shows no evidence of deep venous thrombosis. There is no significant popliteal fossa cyst. If the patient's symptoms persist, followup ultrasound in 5 days 7 days might be of value to exclude proximal propagation from a non-visualized calf vein. US/US venous duplex LE RT IMPRESSION: No acute DVT demonstrated in the right lower extremity.
[2021-12-22 12:15] VITALS: BP 128/68; PULSE 79; RESP 18; TEMP 36.1; O2SAT 98; BMI 47.5
[2021-12-22 14:09] VITALS: BP 148/55; PULSE 72; RESP 18; O2SAT 98
--- NOTE | 2021-12-22 15:27 | ED.EXTPRO ---
HPI - Extremity Problem General Chief complaint: Extremity Problem Stated complaint: Swollen r leg Time Seen by Provider: 12/22/21 12:23 History of Present Illness HPI Narrative: Patient complains of right calf and lower leg swelling x1 day similar to prior DVT, there is no injury there is no shortness of breath there is no chest pain Related Data Previous Rx's Medication Instructions Recorded albuterol sulfate 0.63 mg/3 mL 0.63 mg (3 mL) INHALATION QID PRN 10/29/21 solution for nebulization #75 ml albuterol sulfate 90 mcg/actuation 1 inh INHALATION QID PRN #8.5 g 10/29/21 aerosol inhaler azithromycin 250 mg tablet See Rx Instructions .ROUTE 10/29/21 .COMPLEX #6 tab codeine 10 mg-guaifenesin 100 mg/5 5 ml PO Q6H PRN #120 ml 10/29/21 mL oral liquid (Guaifenesin AC) prednisone 20 mg tablet 40 mg PO DAILY 5 Days #10 tab 10/29/21 metformin 500 mg tablet 500 mg PO BID #60 tab 12/08/21 apixaban 5 mg (74 tabs) tablets in 5 mg PO BID 30 Days #60 ea 12/22/21 a dose pack (Eliquis DVT-PE Treat 30D Start) Allergies Allergy/AdvReac Type Severity Reaction Status Date / Time Heparin Analogues Allergy Intermediate HIVES, Verified 12/22/21 12:19 [HEPARIN AGENTS] RASH, SEVERE BRUISING Heparin Combination Allergy Unknown Hives Uncoded 10/26/21 15:33 Review of Systems Review of Systems: Positive for right lower leg pain and swelling similar to prior DVT Negatives are no fever no chills no dizziness or weakness no fainting no feeling faint no headache no neck pain no chest pain no back pain no shortness of breath no difficulty breathing no skin rash Yes all other systems are reviewed and are negative PMFSH Past Medical History Source: nursing notes reviewed Medical History (Updated 12/23/21 @ 00:00 by Jennifer Joseph) Asthma Chiari malformation type II COVID-19 Diabetes DVT (deep venous thrombosis) Surgical History Hx of carpal tunnel repair Hx of knee surgery Hx of tonsillectomy Social History Social History Alcohol intake: never Advance Directives: No Advance Directives Information Provided: No Patient : No Physical Exam Vital Signs: Vital Signs: Last Vital Signs Temp 97 F 12/22/21 12:15 Pulse 72 12/22/21 14:09 Resp 18 12/22/21 14:09 BP 148/55 H 12/22/21 14:09 Pulse Ox 98 12/22/21 14:09 BMI result Body Mass Index 47.5 General appearance comfortable no acute distress Head is normocephalic atraumatic The pharynx is clear no redness swelling or exudate Neck is supple The chest is clear to auscultation with full symmetric equal breath sounds Heart no murmur Abdomen soft nontender Extremities the right calf is swollen and tender but not red or warm there are no wounds, the leg is otherwise neurovascular intact with no rashes There is full range of motion in all joints of the right leg and the gait is normal Neuro no motor sensory deficits Course Course Course Narrative: Patient with symptoms of calf swelling and pain in the back of right leg similar to a prior blood clot had a negative ultrasound not showing DVT Patient is taking an air pain fight tomorrow Case was discussed with attending physician at of concerned that this could actually be a blood clot not yet seen on ultrasound who agreed that given patient is flying tomorrow and we have no other explanation with no injury or infection likely in the right lower leg to treat this as a possible blood clot with blood thinners before her flight and to follow with primary doctor and glass pulverizer equipment operator to determine if any further treatment is needed and she was strongly advised to get a repeat ultrasound in 5 days to a week Discharge Plan Discharge Clinical Impression: Calf swelling Patient Disposition: Home, Self-Care Additional Instructions: Your ultrasound was negative today But as it feels exactly as your prior DVT and the right calf is obviously swollen with no injury and no sign of infection there is still a chance that you have a DVT that was not seen on the ultrasound Because you are flying tomorrow which increases the risk of clotting we are starting Eliquis for the possibility that you may actually have a DVT You should call primary doctor and probably get a referral to glass pulverizer equipment operator as decision about whether to continue Eliquis is complicated You will need a repeat ultrasound in 5-7 days as this 1 is negative but the clinical suspicion for blood clot was very high Do not take Motrin or aspirin with Eliquis is they can increase risk of bleeding Return to the ER any time for shortness of breath, worse pain and swelling, bleeding from any source any worse condition or any concerns Prescriptions: New Eliquis DVT-PE Treat 30D Start 5 mg (74 tabs) tablets,dose pack 5 mg PO BID 30 Days Qty: 60 0RF Rx Instructions: Take 2 tablets, 10 mg, twice a day for 7 days Then after 7 days take 1 tablet, 5 mg once a day No Action metformin 500 mg tablet 500 mg PO BID Qty: 60 0RF albuterol sulfate 0.63 mg/3 mL solution for nebulization 0.63 mg inhalation QID PRN (Reason: shortness of breath or wheezing) Qty: 75 0RF albuterol sulfate 90 mcg/actuation HFA aerosol inhaler 1 inh inhalation QID PRN (Reason: shortness of breath or wheezing) Qty: 8.5 0RF azithromycin 250 mg tablet See Rx Instructions .ROUTE .COMPLEX Qty: 6 0RF Rx Instructions: take 500 mg today (day 1), then 250 mg for 4 days (days 2-5) prednisone 20 mg tablet 40 mg PO DAILY 5 Days Qty: 10 0RF codeine-guaifenesin [Guaifenesin AC] 10-100 mg/5 mL liquid 5 ml PO Q6H PRN (Reason: cold symptoms) Qty: 120 0RF Interventions: ED Discharge Assessment Last Done: 12/22/21 15:44 Discharge Date/Time: 12/22/21 15:45
[2021-12-22] MEDS: Apixaban 5 MG TABLET PO ×2 (15:33)
== END 2021-12-22 15:45 | disposition home or self-care (01) ==
PROVIDERS: Emergency Provider Emergency Medicine; PCP Internal Medicine
DX: R60.0 Localized edema (principal); Z79.899 Other long term (current) drug therapy
CPT/HCPCS: 93971; 99284

== ENCOUNTER 2022-01-01 15:09 | Emergency (ER) | payer BC, SELFPAY ==
--- NOTE | ~2022-01-01 | US_ITS ---
EXAMINATION: US VENOUS ULTRASOUND WITH DOPPLER LOWER EXTREMITY, RIGHT CLINICAL INFORMATION: Swelling and pain. COMPARISON: 12/22/2021. TECHNIQUE: Ultrasound of the deep veins is performed from the hip to the calf with compression sonography and color and pulse Doppler assessment. Spectral analysis with color-flow imaging is performed. FINDINGS: There is normal venous compression and respiratory variation and augmented flow. The visualized common femoral vein, superficial femoral vein, profunda femoral vein, popliteal vein, and the trifurcation region shows no evidence of deep venous thrombosis with the caveat and the peroneal vein was not visualized. There is no significant popliteal fossa cyst. If the patient's symptoms persist, followup ultrasound in 5 days 7 days might be of value to exclude proximal propagation from a non-visualized calf vein. US/US venous duplex LE RT IMPRESSION: No DVT demonstrated in the right lower extremity with the caveat that the peroneal vein was not visualized.
[2022-01-01 16:28] VITALS: BP 140/86; PULSE 87; RESP 17; TEMP 36.6; O2SAT 98; BMI 41.2
--- NOTE | 2022-01-01 16:53 | ED.LOWEXIN ---
HPI - Extremity Injury (Lower) General Chief Complaint: Extremity Injury, Lower Stated Complaint: right leg painful and swollen Time Seen by Provider: 01/01/22 16:27 Source: patient Mode of arrival: ambulatory Limitations: no limitations History of Present Illness HPI Narrative: Patient is a 41 year old female presenting to the emergency department today with right lower leg swelling. Patient states that she was seen here 2 weeks ago for right lower leg swelling and at that time, had an ultrasound done that was negative for DVT. Patient states that she was seen at her PCPs office who started her on Eliquis and recommended she come here for a repeat US. Patient states that the swelling has not gone down. Patient denies any dizziness, lightheadedness, abdominal pain, nausea, vomiting, fever, chills, blurry vision, double vision, loss of vision, chest pain, difficulty breathing, shortness of breath, back pain, night sweats, pain with urination, increased urinary frequency, increased urinary urgency, blood in her urine or stool, syncope or a near syncopal episode, recent trauma or falls, bowel incontinence, bladder incontinence, bowel retention, bladder retention, or any other complaints at this time. MD complaint: other (lower leg swelling) Onset (ago): week(s) Severity: mild Relieving factors: nothing Exacerbating factors: nothing Other symptoms: none Related Data Previous Rx's Medication Instructions Recorded albuterol sulfate 0.63 mg/3 mL 0.63 mg (3 mL) INHALATION QID PRN 10/29/21 solution for nebulization #75 ml albuterol sulfate 90 mcg/actuation 1 inh INHALATION QID PRN #8.5 g 10/29/21 aerosol inhaler azithromycin 250 mg tablet See Rx Instructions .ROUTE 10/29/21 .COMPLEX #6 tab codeine 10 mg-guaifenesin 100 mg/5 5 ml PO Q6H PRN #120 ml 10/29/21 mL oral liquid (Guaifenesin AC) prednisone 20 mg tablet 40 mg PO DAILY 5 Days #10 tab 10/29/21 metformin 500 mg tablet 500 mg PO BID #60 tab 12/08/21 apixaban 5 mg (74 tabs) tablets in 5 mg PO BID 30 Days #60 ea 12/22/21 a dose pack (Eliquis DVT-PE Treat 30D Start) Allergies Allergy/AdvReac Type Severity Reaction Status Date / Time Heparin Analogues Allergy Intermediate HIVES, Verified 12/22/21 12:19 [HEPARIN AGENTS] RASH, SEVERE BRUISING Heparin Combination Allergy Unknown Hives Uncoded 10/26/21 15:33 Review of Systems Constitutional: Constitutional: Reports no additional constitutional complaints, Denies chills, Denies fever(s) and Denies night sweats Eyes: Eyes: Reports no additional eye complaints, Denies blurry vision, Denies change in vision, Denies diplopia, Denies eye discharge, Denies loss of vision and Denies eye pain ENT: Denies dizziness Cardiovascular: Cardiovascular: Reports no additional cardiovascular complaints, Denies chest pain, Denies lightheadedness, Denies Loss of Consciousness and Denies dyspnea Respiratory: Respiratory: Reports no additional respiratory complaints and Denies dyspnea Gastrointestinal: Gastrointestinal: Reports no additional gastrointestinal complaints, Denies abdominal pain, Denies melena, Denies hematochezia, Denies change in bowel habits and Denies change in stool character Genitourinary: Genitourinary: Denies hematuria, Denies urinary frequency, Denies dysuria, Denies urinary incontinence, Denies urinary hesitancy and Denies urinary urgency Musculoskeletal: Musculoskeletal: Reports no additional musculoskeletal complaints, Denies numbness and Denies tingling Comments: right lower leg swelling Neurologic: Denies dizziness, Denies loss of vision, Denies numbness and Denies tingling Psychiatric: Psychiatric: Reports no additional psychiatric complaints Endocrine: Endocrine: Reports no additional endocrine complaints Hematologic/Lymphatic: Hematologic/Lymphatic: Reports no additional hematologic/lymphatic complaints Allergic/Immunologic: Allergic/Immunologic: Reports no additional allergic/immunologic complaints [facility] Past Medical History Attestation statement: The following information was validated with the patient. Source: old records reviewed Medical History Asthma Chiari malformation type II COVID-19 Diabetes DVT (deep venous thrombosis) Surgical History Hx of carpal tunnel repair Hx of knee surgery Hx of tonsillectomy Social History Social History Alcohol intake: never Advance Directives: No Advance Directives Information Provided: No Physical Exam Vital Signs: Vital Signs: Last Vital Signs Temp 98 F 01/01/22 16:28 Pulse 87 03/14/22 16:28 Resp 17 01/01/22 16:28 BP 140/86 H 01/01/22 16:28 Pulse Ox 98 01/01/22 16:28 BMI result Body Mass Index 41.2 Const: General: cooperative, no acute distress, alert and awake Nutritional Appearance: well nourished Orientation/consciousness: patient oriented x3 Limitations: no limitations HENMT: Head: Yes normal to inspection and Yes atraumatic Ears: hearing grossly normal bilaterally and external ears normal General nose exam: Normal external nose present, no nasal discharge noted and no epistaxis Face and sinus: Yes normal facial exam, No abrasion and No laceration Mouth: Normal oral and palatal mucosa present, no drooling and no muffled voice Eyes: General: appearance normal, both eyes and all related structures Periorbital: periorbital findings normal Eyelids: Yes eyelids normal Conjunctivae: conjunctivae normal Pupils: Equal, round and reactive pupils present EOM: EOMs intact bilaterally Neck: Neck: Yes normal visual inspection, Yes full ROM and Yes no lymphadenopathy Chest: Chest palpation & inspection: normal inspection of the chest Resp: Effort & Inspection: normal respiratory effort and able to speak in complete sentences Auscultation: clear to auscultation bilaterally Cardio: Rate: regular rate Rhythm: regular rhythm GI: Inspection: Yes normal to inspection Neuro: General: patient oriented x3 and moves all extremities Cranial nerves: Yes Equal, round and reactive pupils present Cognition (Neuro): normal cognition Motor exam (neuro): 5/5 motor strength present throughout Sensory Exam: Normal double simultaneous stimulation for sensation Coordination: [id number] test normal Extrem: Other: right lower leg swelling, no erythema, no edema, no warmth General: Yes normal to inspection, Yes full ROM and Yes capillary refill normal Psych: Appearance: grossly normal Mental Status: mental status grossly normal Affect: normal affect Attitude: cooperative Thought process: Normal thought process present Thought content: Normal thought content present Insight: Good insight present (Psych) MDM - Extremity Injury (Lower) MDM Narrative Medical decision making narrative: Patient is a 41 year old female presenting to the emergency department today with right lower leg swelling. Patient's physical exam showed mild right lower leg swelling with no erythema, warmth, or edema. Patient's venous US of the right lower leg showed no acute process. I explained my physical exam findings as well as all test results to the patient. I answered all questions asked by the patient. I stressed the importance of the patient taking her medication, including her Eliquis, as prescribed. I explained to the patient that elevation and compression stocking use of the lower extremities could also be helpful. I stressed the importance of the patient following up with her primary care provider. I stressed the importance of the patient returning to the emergency department immediately if her symptoms were to worsen or if she were to develop any dizziness, shortness of breath, difficulty breathing, chest pain, blurry vision, loss of vision, nausea, vomiting, abdominal pain, fever, chills, back pain, or any other complaints. Patient verbalized agreement and understanding with this treatment plan and discharge. Differential Diagnosis Differential diagnosis: Unlikely ankle sprain and strain (right lower leg swelling, lymphedema, DVT) or ankle fracture Medical Records Attestation: I reviewed the patient's medical records. Imaging Data Venous US: Attestation: I personally reviewed and interpreted this imaging study as follows: Radiologist's impression: EXAMINATION:? US VENOUS ULTRASOUND WITH DOPPLER LOWER EXTREMITY, RIGHT CLINICAL INFORMATION:? Swelling and pain. COMPARISON:? 12/22/2021. TECHNIQUE: Ultrasound of the deep veins is performed from the hip to the calf with compression sonography and color and pulse Doppler assessment. Spectral analysis with color-flow imaging is performed. FINDINGS: There is normal venous compression and respiratory variation and augmented flow. The visualized common femoral vein, superficial femoral vein, profunda femoral vein, popliteal vein, and the trifurcation region shows no evidence of deep venous thrombosis with the caveat and the peroneal vein was not visualized. ? There is no significant popliteal fossa cyst. If the patient's symptoms persist, followup ultrasound in 5 days 7 days might be of value to exclude proximal propagation from a non-visualized calf vein. US/US venous duplex LE RT IMPRESSION: No DVT demonstrated in the right lower extremity with the caveat that the peroneal vein was not visualized. Dictated By: Susana Barbour Signed By: Electronically signed by Susana? Km 01/01/22 170 Discharge Plan Discharge Clinical Impression: Localized swelling of right lower leg Patient Disposition: Home, Self-Care Instructions: Leg Edema (ED) Additional Instructions: Follow up with your primary care provider. Return to the emergency department immediately if your symptoms worsen or if you develop any dizziness, shortness of breath, difficulty breathing, chest pain, blurry vision, loss of vision, nausea, vomiting, abdominal pain, fever, chills, back pain, or any other complaints. Prescriptions: No Action metformin 500 mg tablet 500 mg PO BID Qty: 60 0RF albuterol sulfate 0.63 mg/3 mL solution for nebulization 0.63 mg inhalation QID PRN (Reason: shortness of breath or wheezing) Qty: 75 0RF albuterol sulfate 90 mcg/actuation HFA aerosol inhaler 1 inh inhalation QID PRN (Reason: shortness of breath or wheezing) Qty: 8.5 0RF azithromycin 250 mg tablet See Rx Instructions .ROUTE .COMPLEX Qty: 6 0RF Rx Instructions: take 500 mg today (day 1), then 250 mg for 4 days (days 2-5) prednisone 20 mg tablet 40 mg PO DAILY 5 Days Qty: 10 0RF codeine-guaifenesin [Guaifenesin AC] 10-100 mg/5 mL liquid 5 ml PO Q6H PRN (Reason: cold symptoms) Qty: 120 0RF Eliquis DVT-PE Treat 30D Start 5 mg (74 tabs) tablets,dose pack 5 mg PO BID 30 Days Qty: 60 0RF Rx Instructions: Take 2 tablets, 10 mg, twice a day for 7 days Then after 7 days take 1 tablet, 5 mg once a day Referrals: Jonna Carvalho MD [Primary Care Provider] - 2 days Interventions: ED Discharge Assessment Last Done: 01/01/22 17:28 Discharge Date/Time: 01/01/22 17:31 Print Language: [place]
== END 2022-01-01 17:31 | disposition home or self-care (01) ==
PROVIDERS: Emergency Provider Emergency Medicine; PCP Internal Medicine
DX: M79.661 Pain in right lower leg (principal); R22.41 Localized swelling, mass and lump, right lower limb; E11.9 Type 2 diabetes mellitus without complications; Z86.718 Personal history of other venous thrombosis and embolism; Z79.01 Long term (current) use of anticoagulants
CPT/HCPCS: 93971; 99283; 99284

== ENCOUNTER 2022-03-19 15:01 | Emergency (ER) | payer BC, SELFPAY ==
--- NOTE | ~2022-03-19 | XR_ITS ---
EXAMINATION: XR CHEST CLINICAL INFORMATION: Chest pain. COMPARISON: Chest radiograph dated from 10/29/2021. TECHNIQUE: AP view of the chest was obtained. FINDINGS: No significant abnormality is noted involving the heart, lungs, mediastinum, bony thorax or soft tissues. XR/XR chest 1V IMPRESSION: Unremarkable examination.
--- NOTE | 2022-03-19 15:10 | ECG_ITS ---
Test Reason : cp Blood Pressure : / mmHG Vent. Rate : 083 BPM Atrial Rate : 083 BPM P-R Int : 128 ms QRS Dur : 076 ms QT Int : 376 ms P-R-T Axes : 027 000 024 degrees QTc Int : 441 ms Normal sinus rhythm Normal ECG When compared with ECG of 08-DEC-2021 17:24, No significant change was found Referred By: Generic ED Physician Electronically Signed By:MATEO MATOS MD
[2022-03-19 15:14] VITALS: BP 128/80; PULSE 86; RESP 18; TEMP 36.2; O2SAT 98; BMI 44.0
--- NOTE | 2022-03-19 18:03 | ED.CHESTPAIN ---
HPI - Chest Pain General Chief Complaint: Chest Pain Stated Complaint: chest pains Time Seen by Provider: 03/19/22 18:01 History of Present Illness HPI narrative: Patient is 41 years old presents today with having chest pain. Initially was in back. Now is in the front of her chest. There is no sudden in her family. The pain has been ongoing for about a week. It has been fairly constant since this morning. Part positive history of diet-controlled diabetes positive history of asthma no history of hypertension, high cholesterol, smoking, mi. No sudden deaths in the family. No history of aneurysms. Patient from home. The pain is made better with lying down. Worsen with movement. It is not associated with any shortness of breath. There is no diaphoresis. No stress test done in the past. No coughing or congestion or upper respiratory symptoms. Denies any travel. Not on control. Patient has an IUD. Does not think she is she is not active. Related Data Previous Rx's Medication Instructions Recorded albuterol sulfate 0.63 mg/3 mL 0.63 mg (3 mL) INHALATION QID PRN 10/29/21 solution for nebulization #75 ml albuterol sulfate 90 mcg/actuation 1 inh INHALATION QID PRN #8.5 g 10/29/21 aerosol inhaler azithromycin 250 mg tablet See Rx Instructions .ROUTE 10/29/21 .COMPLEX #6 tab codeine 10 mg-guaifenesin 100 mg/5 5 ml PO Q6H PRN #120 ml 10/29/21 mL oral liquid (Guaifenesin AC) prednisone 20 mg tablet 40 mg PO DAILY 5 Days #10 tab 10/29/21 metformin 500 mg tablet 500 mg PO BID #60 tab 12/08/21 apixaban 5 mg (74 tabs) tablets in 5 mg PO BID 30 Days #60 ea 12/22/21 a dose pack (Eliquis DVT-PE Treat 30D Start) Allergies Allergy/AdvReac Type Severity Reaction Status Date / Time Heparin Analogues Allergy Intermediate HIVES, Verified 12/22/21 12:19 [HEPARIN AGENTS] RASH, SEVERE BRUISING Heparin Combination Allergy Unknown Hives Uncoded 10/26/21 15:33 Review of Systems Review of Systems: Positive chest pain No diaphoresis No fever no chills no coughing no congestion or upper respiratory symptoms Yes all other systems are reviewed and are negative [facility] Past Medical History Attestation statement: The following information was validated with the patient. Medical History Asthma Chiari malformation type II COVID-19 Diabetes DVT (deep venous thrombosis) Surgical History Hx of carpal tunnel repair Hx of knee surgery Hx of tonsillectomy Social History Social History Alcohol intake: never Advance Directives: No Advance Directives Information Provided: No Physical Exam Vital Signs: Vital Signs: Last Vital Signs Temp 97.2 F 03/19/22 15:14 Pulse 86 03/19/22 15:14 Resp 18 03/19/22 15:14 BP 128/80 03/19/22 15:14 Pulse Ox 98 03/19/22 15:14 BMI result Body Mass Index 44.0 Appearance: Alert. Oriented X3. No acute distress. Eyes: Pupils equal, round and reactive to light. ENT: Pharynx normal. Neck: Normal inspection. Neck supple. No lymph nodes noted. No crepitus CVS: Normal heart rate and rhythm. Pulses normal. Normal S1 and S2 Respiratory: No respiratory distress. Breath sounds normal. No Wheezing. No rales Abdomen: Soft and nontender. No rigidity. No distention. good BS x4 Skin: Skin warm and dry. Normal skin color. Normal skin turgor. Extremities: No lower extremity edema. Neurovascular intact to all extremities. No Lacerations. No Rash Neuro: Oriented X 3. No motor deficit. No sensory deficit. Moving all extermities. No slurred speech MDM - Chest Pain MDM Narrative Medical decision making narrative: Patient's EKG showed a sinus pattern heart rate is 80 ER cares QT within normal limits is no acute ST segment elevation. Patient's chest pain atypical for ACS. Normal EKG. Negative troponin. She is 41 years old only had 1 risk factor. Heart score is less than 3 will have patient follow-up on an outpatient basis. Patient history not consistent with PE patient's D-dimer was negative. In the setting of low risk patient unlikely to have a pulmonary emboli. Chest x-ray showed no focal infiltrate no pneumonia pneumothorax. Will discharge patient home. Follow up on an outpatient basis. Medical Records Data Attestation: I reviewed the patient's medical records. Lab Data Attestation: I reviewed the patient's lab results. Result diagrams: 03/19/22 18:47 03/19/22 18:47 Labs: Lab Results 03/19/22 03/19/22 03/19/22 Range/Units 18:47 18:47 18:47 WBC 10.4 (4.8-10.8) X10*3/uL RBC 4.70 (4.20-5.50) X10*6/uL Hgb 14.3 (12.0-16.0) g/dl Hct 41.5 (37.0-47.0) % MCV 88.3 (80.0-98.0) fL MCH 30.4 (27.0-33.0) pg MCHC 34.5 (31.0-35.0) g/dl RDW 12.2 (11.0-16.0) % Plt Count 278 (160-400) X10*3/uL MPV 9.4 (9.4-12.3) fL Immature Gran % (Auto) 0.3 (0.0-0.4) % Neut % (Auto) 56.3 (45-73) % Lymph % (Auto) 31.6 (20-40) % Terrell % (Auto) 7.6 (2-11) % Eos % (Auto) 3.6 (0-4) % Baso % (Auto) 0.6 (0-2) % Lymph # (Auto) 3.3 (1.2-4.9) X10*3/uL Terrell # (Auto) 0.8 (0.1-1.2) X10*3/uL Eos # (Auto) 0.4 (0.0-0.4) X10*3/uL Baso # (Auto) 0.1 (0.0-0.2) X10*3/uL Abs Immat Gran (auto) 0.03 (0.00-0.03) X10*3/uL Absolute Neuts (auto) 5.9 (2.0-8.3) x10*3/uL Absolute Nucleated RBC 0.000 (0.0-0.012) X10*3/uL Nucleated RBC % (auto) 0.0 (0.0-0.2) /100WBC D-Dimer High Sensitivty < 150 NG/ML Sodium 138 (135-145) mmol/L Potassium 4.5 (3.3-5.1) mmol/L Chloride 106 (96-108) mmol/L Carbon Dioxide 24 (22-29) mmol/L Anion Gap 13 (12-20) BUN 12 (9-16) mg/dL Creatinine 0.73 (0.5-1.4) mg/dL Estim Creat Clear Calc 104.8 Estimated GFR > 60 Random Glucose 279 H (60-115) mg/dL Calcium 9.7 (8.4-10.2) mg/dL Troponin I High Sens (<3.5-17.0) ng/L Beta HCG, Quant < 2 mIU/mL 03/19/22 Range/Units 18:47 WBC (4.8-10.8) X10*3/uL RBC (4.20-5.50) X10*6/uL Hgb (12.0-16.0) g/dl Hct (37.0-47.0) % MCV (80.0-98.0) fL MCH (27.0-33.0) pg MCHC (31.0-35.0) g/dl RDW (11.0-16.0) % Plt Count (160-400) X10*3/uL MPV (9.4-12.3) fL Immature Gran % (Auto) (0.0-0.4) % Neut % (Auto) (45-73) % Lymph % (Auto) (20-40) % Terrell % (Auto) (2-11) % Eos % (Auto) (0-4) % Baso % (Auto) (0-2) % Lymph # (Auto) (1.2-4.9) X10*3/uL Terrell # (Auto) (0.1-1.2) X10*3/uL Eos # (Auto) (0.0-0.4) X10*3/uL Baso # (Auto) (0.0-0.2) X10*3/uL Abs Immat Gran (auto) (0.00-0.03) X10*3/uL Absolute Neuts (auto) (2.0-8.3) x10*3/uL Absolute Nucleated RBC (0.0-0.012) X10*3/uL Nucleated RBC % (auto) (0.0-0.2) /100WBC D-Dimer High Sensitivty NG/ML Sodium (135-145) mmol/L Potassium (3.3-5.1) mmol/L Chloride (96-108) mmol/L Carbon Dioxide (22-29) mmol/L Anion Gap (12-20) BUN (9-16) mg/dL Creatinine (0.5-1.4) mg/dL Estim Creat Clear Calc Estimated GFR Random Glucose (60-115) mg/dL Calcium (8.4-10.2) mg/dL Troponin I High Sens < 3.5 (<3.5-17.0) ng/L Beta HCG, Quant mIU/mL Discharge Plan Discharge Clinical Impression: Chest pain Patient Disposition: Home, Self-Care Instructions: Chest Pain (ED) Prescriptions: No Action metformin 500 mg tablet 500 mg PO BID Qty: 60 0RF albuterol sulfate 0.63 mg/3 mL solution for nebulization 0.63 mg inhalation QID PRN (Reason: shortness of breath or wheezing) Qty: 75 0RF albuterol sulfate 90 mcg/actuation HFA aerosol inhaler 1 inh inhalation QID PRN (Reason: shortness of breath or wheezing) Qty: 8.5 0RF azithromycin 250 mg tablet See Rx Instructions .ROUTE .COMPLEX Qty: 6 0RF Rx Instructions: take 500 mg today (day 1), then 250 mg for 4 days (days 2-5) prednisone 20 mg tablet 40 mg PO DAILY 5 Days Qty: 10 0RF codeine-guaifenesin [Guaifenesin AC] 10-100 mg/5 mL liquid 5 ml PO Q6H PRN (Reason: cold symptoms) Qty: 120 0RF Eliquis DVT-PE Treat 30D Start 5 mg (74 tabs) tablets,dose pack 5 mg PO BID 30 Days Qty: 60 0RF Rx Instructions: Take 2 tablets, 10 mg, twice a day for 7 days Then after 7 days take 1 tablet, 5 mg once a day Referrals: Ranjith Clifton MD [Physician] -
[2022-03-19 18:52] LABS: MANUAL DIFF FLAG NO
[2022-03-19 19:01] LABS: Basophils Absolute Auto 0.1 X10*3/uL (0.0-0.2); Basophils Percent Auto 0.6 % (0-2); Eosinophils Absolute Auto 0.4 X10*3/uL (0.0-0.4); Eosinophils Percent Auto 3.6 % (0-4); Hematocrit 41.5 % (37.0-47.0); Hemoglobin 14.3 g/dl (12.0-16.0); Imm Gran Abs Auto 0.03 X10*3/uL (0.00-0.03); Imm Gran Pct Auto 0.3 % (0.0-0.4); Lymphocytes Absolute Auto 3.3 X10*3/uL (1.2-4.9); Lymphocytes Percent Auto 31.6 % (20-40); Mean Corpuscular HGB Conc 34.5 g/dl (31.0-35.0); Mean Corpuscular Hemoglobin 30.4 pg (27.0-33.0); Mean Corpuscular Volume 88.3 fL (80.0-98.0); Mean Platelet Volume 9.4 fL (9.4-12.3); Monocytes Absolute Auto 0.8 X10*3/uL (0.1-1.2); Monocytes Percent Auto 7.6 % (2-11); Neutrophils Absolute Auto 5.9 x10*3/uL (2.0-8.3); Neutrophils Percent Auto 56.3 % (45-73); Platelet Count 278 X10*3/uL (160-400); Red Cell Distribution Width 12.2 % (11.0-16.0); White Blood Count 10.4 X10*3/uL (4.8-10.8)
[2022-03-19 19:06] LABS: Anion Gap 13 (12-20); Blood Urea Nitrogen 12 mg/dL (9-16); Calcium 9.7 mg/dL (8.4-10.2); Carbon Dioxide 24 mmol/L (22-29); Chloride 106 mmol/L (96-108); Creatinine Clr Calc Pharmacy 104.8; Estimated Glomerular Filt Rate > 60; Glucose Random 279 mg/dL (60-115); Potassium 4.5 mmol/L (3.3-5.1); Sodium 138 mmol/L (135-145)
[2022-03-19 19:13] LABS: HCG Quantitative < 2 mIU/mL
[2022-03-19 19:14] LABS: Troponin-I High Sensitivity < 3.5 ng/L (<3.5-17.0)
[2022-03-19 19:22] LABS: D Dimer High Sensitivity < 150 NG/ML
== END 2022-03-19 20:24 | disposition home or self-care (01) ==
PROVIDERS: Emergency Provider Emergency Medicine Emergency Medical Services
DX: R07.89 Other chest pain (principal); M54.50 Low back pain, unspecified; Z79.899 Other long term (current) drug therapy
CPT/HCPCS: 36415; 71045; 80048; 84484; 84702; 85025; 85379; 93005; 99284

== ENCOUNTER 2022-06-28 14:11 | Inpatient (IN) | payer BC, SELFPAY ==
[2022-06-28] VITALS (7 sets, daily range): BP systolic 125–157; BP diastolic 63–98; PULSE 98–121; RESP 18–22; TEMP 36.6; O2SAT 95–100; BMI 104.1
--- NOTE | ~2022-06-28 | XR_ITS ---
EXAMINATION: XR CHEST CLINICAL INFORMATION: Patient on breathing treatment. COMPARISON: 03/19/2022 chest radiograph. TECHNIQUE: Frontal view of the chest was obtained. FINDINGS: No significant abnormality is noted involving the heart, lungs, mediastinum, bony thorax or soft tissues. XR/XR chest 1V IMPRESSION: No acute cardiopulmonary process.
--- NOTE | ~2022-06-28 | XR_ITS ---
EXAMINATION: XR CHEST CLINICAL INFORMATION: Shortness of breath COMPARISON: None TECHNIQUE: Frontal view of the chest was obtained. FINDINGS: No significant abnormality is noted involving the heart, lungs, mediastinum, bony thorax or soft tissues. XR/XR chest 1V IMPRESSION: Unremarkable examination.
--- NOTE | 2022-06-28 14:22 | ECG_ITS ---
Test Reason : sob Blood Pressure : / mmHG Vent. Rate : 101 BPM Atrial Rate : 101 BPM P-R Int : 114 ms QRS Dur : 074 ms QT Int : 340 ms P-R-T Axes : 035 -02 027 degrees QTc Int : 440 ms Sinus tachycardia Otherwise normal ECG When compared with ECG of 19-MAR-2022 15:18, Heart rate has increased Referred By: Generic ED Physician Electronically Signed By:SWEETIE NICHOLSON
[2022-06-28 14:41] LABS: MANUAL DIFF FLAG NO
[2022-06-28 14:49] LABS: Basophils Percent Auto 0.5 % (0-2); Eosinophils Absolute Auto 0.3 X10*3/uL (0.0-0.4); Eosinophils Percent Auto 3.5 % (0-4); Hematocrit 42.4 % (37.0-47.0); Hemoglobin 14.8 g/dl (12.0-16.0); Imm Gran Abs Auto 0.05 X10*3/uL (0.00-0.03); Imm Gran Pct Auto 0.6 % (0.0-0.4); Lymphocytes Absolute Auto 1.8 X10*3/uL (1.2-4.9); Lymphocytes Percent Auto 21.7 % (20-40); Mean Corpuscular HGB Conc 34.9 g/dl (31.0-35.0); Mean Corpuscular Hemoglobin 30.5 pg (27.0-33.0); Mean Corpuscular Volume 87.4 fL (80.0-98.0); Mean Platelet Volume 9.1 fL (9.4-12.3); Monocytes Absolute Auto 0.8 X10*3/uL (0.1-1.2); Monocytes Percent Auto 9.4 % (2-11); Neutrophils Absolute Auto 5.3 x10*3/uL (2.0-8.3); Neutrophils Percent Auto 64.3 % (45-73); Platelet Count 243 X10*3/uL (160-400); Red Blood Count 4.85 X10*6/uL (4.20-5.50); Red Cell Distribution Width 11.9 % (11.0-16.0); White Blood Count 8.2 X10*3/uL (4.8-10.8)
[2022-06-28] MEDS: Albuterol Sulfate 7.5 MG, Albuterol Sulfate (0.083%) 2.5 MG 10 MG INHALE ×2 (15:00→16:55)
[2022-06-28 15:03] LABS: COVID-19 Test Negative (Negative); IDNOW Serial# 16C4AD1C
[2022-06-28 15:16] LABS: Alanine Aminotransferase 39 U/L (0-31); Albumin Level 3.9 g/dL (3.5-5.0); Alkaline Phosphatase 80 U/L (39-117); Anion Gap 18 (12-20); Aspartate Amino Transferase 20 U/L (5-31); Bilirubin Total 0.6 mg/dL (0.0-1.0); Blood Urea Nitrogen 8 mg/dL (9-16); Calcium 9.1 mg/dL (8.4-10.2); Carbon Dioxide 18 mmol/L (22-29); Chloride 103 mmol/L (96-108); Creatinine Clr Calc Pharmacy 172.8; Estimated Glomerular Filt Rate > 60; Glucose Random 417 mg/dL (60-115); Magnesium 1.8 mg/dL (1.6-2.6); Potassium 4.4 mmol/L (3.3-5.1); Sodium 135 mmol/L (135-145); Total Protein 6.8 g/dL (6.5-8.0)
[2022-06-28 15:20] LABS: Prothrombin Time 10.9 SEC (10.0-13.1)
[2022-06-28] MEDS: methylPREDNISolone Sod Succ 125 MG/2 ML VIAL IVPUSH (15:30)
[2022-06-28] MEDS: Magnesium Sulfate/H2O 2 GM/50 ML PIGGYBACK IV (15:30)
[2022-06-28] MEDS: 0.9 % Sodium Chloride 1,000 ML 999 ML IVCONT ×2 (15:31→17:40)
--- NOTE | 2022-06-28 15:32 | ED.ASTHMA ---
HPI - Asthma General Chief Complaint: Upper Respiratory Symptoms Stated Complaint: DIFF BREATHING ASTHMA Time Seen by Provider: 06/28/22 14:34 Source: patient Mode of arrival: ambulatory Limitations: no limitations History of Present Illness HPI Narrative: 42-year-old female with a past medical history of asthma, diet-controlled diabetes, craig malformation presenting to the ED with complaints of an asthma exacerbation for the past 2 days worse today. Reports that she has been using her nebulizers and inhalers at home and no symptomatic relief. She reports fevers up to 101.0, generalized fatigue, malaise, wheezing, green sputum production, shortness of breath. she reports she has been hospitalized in the past for her asthma although has never been intubated. She denies any dizziness, headaches, neck pain / stiffness, sore throat, nasal congestion rhinorrhea, ear pain, abdominal pain, nausea/ vomiting, dysuria, flank pain, back pain, lower extremity edema or calf tenderness, recent travel or sick contacts or any other symptoms complaints or concerns at this time. MD complaint: asthma attack , shortness of breath and wheezing Onset (ago): day(s) (2) Severity: moderate Context: none known Associated symptoms: productive cough, fever and chest pain Asthma History: childhood onset, history of frequent attacks and history of prior ED visit Treatments Prior to Arrival: inhaled bronchodilator Related Data Current Asthma Therapy: inhaled bronchodilator Home Medications Medication Instructions Recorded Confirmed glipizide 2.5 mg tablet, extended 1 tab PO BIDAC 06/28/22 06/28/22 release 24 hr Previous Rx's Medication Instructions Recorded albuterol sulfate 0.63 mg/3 mL 0.63 mg (3 mL) inhalation QID PRN 10/29/21 solution for nebulization shortness of breath or wheezing #75 mL albuterol sulfate 90 mcg/actuation 1 inh inhalation QID PRN shortness 10/29/21 aerosol inhaler of breath or wheezing #8.5 grams Allergies Allergy/AdvReac Type Severity Reaction Status Date / Time Heparin Analogues Allergy Intermediate HIVES, Verified 12/22/21 12:19 [HEPARIN AGENTS] RASH, SEVERE BRUISING Heparin Combination Allergy Unknown Hives Uncoded 10/26/21 15:33 Review of Systems Review of Systems: Constitutional : denies med noncompliance, no history of PE or DVT, denies recent travel, + Fever, + Chills ENT/Mouth : No Hoarseness, No sore throat, No Rhinorrhea, No Nasal congestion, No Sinus Pressure, No Ear Pain, No stridor, Eyes: No Redness, No Discharge, No Vision Changes Cardiovascular : No Chest Pain, + SOB, No Edema, no pleurisy, Respiratory : + Cough, + wheezing, + Sputum, no stridor, no hemoptysis, Gastrointestinal : No Nausea, No Vomiting, No Diarrhea, No abdominal Pain Genitourinary : No Dysuria, No Hematuria Musculoskeletal : No joint pain/swelling, + Myalgias Extremities: no extremity swelling /pain Skin : No rash, no itching, no swelling Neuro : No Weakness, No Numbness, No Headache, No Dizziness, No Paresthesias Psych : No anxiety, depression Heme/Lymph: No Bruising, No Bleeding Endocrine : No Polyuria, No Polydipsia Yes all other systems are reviewed and are negative [facility] Past Medical History Attestation statement: The following information was validated with the patient. Source: old records reviewed and nursing notes reviewed Medical History Asthma Chiari malformation type II COVID-19 Diabetes DVT (deep venous thrombosis) Surgical History Hx of carpal tunnel repair Hx of knee surgery Hx of tonsillectomy Social History Social History Alcohol intake: never Advance Directives: No Advance Directives Information Provided: Yes Physical Exam Vital Signs: Vital Signs: Last Vital Signs Temp 97.9 F 06/28/22 14:19 Pulse 100 06/28/22 16:55 Resp 18 06/28/22 16:55 BP 157/98 H 06/28/22 14:19 Pulse Ox 97 06/28/22 14:19 O2 Del Method 06/28/22 14:19 BMI result Body Mass Index 104.1 vital signs have been reviewed as normal and appeared to be correct. Blood pressure 157/98. Heart rate 110. Respiration rate 22. Temperature normal. Oxygen saturation normal. Appearance: Alert. Oriented X3. Patient acute respiratory distress otherwise no other acute distress. Head: Normal external exam. Normocephalic. Atraumatic. Eyes: PERRLA. EOMI. Conjunctiva and sclera normal. Eyelids normal. ENT: EAC normal. TM's Normal. Pharynx normal. Uvula midline. Moist mucous membranes. No lesions/ulcerations or masses noted on the tongue. Normal voice. No trismus noted. No drooling noted. No muffled voice noted. Neck: Normal inspection. Neck supple. FROM. No adenopathy. Thyroid Normal. No tracheal deviation noted. No crepitus is noted. No meningeal signs. No neck mass noted. No signs of trauma noted. CVS: Normal heart rate and rhythm. Heart sound normal. Pulses normal throughout. No murmurs/rales/gallops. Respiratory: Patient acute respiratory distress with decreased breath sounds and inspiratory and expiratory wheezing throughout and audible just with the patient speaking to me. Otherwise no rales/rhonchi noted. Chest is nontender. No crepitus is noted. Patient does have some accessory muscle uses and tracheal tugging and abdominal retractions. No signs of trauma. Patient tolerating secretions well. Abdomen: Soft and nontender. Nondistended. No guarding. No rigidity. Bowel sounds normal in all 4 quadrants. No distention noted. No organomegaly noted. No visible injury noted. Back: No CVA tenderness. Full range of motion noted. Nontender. No signs of trauma. Patient neuro intact bilaterally and distally on all 4 extremities. Patient's reflexes intact bilaterally and distally on all 4 extremities. No rashes/lesion/induration/fluctuance or signs of infection noted. Skin: Skin warm and dry. Normal skin color. Normal skin turgor. No rashes/lesions/lacerations noted. Extremities: No lower extremity edema. No calf tenderness is noted. Extremities exhibit normal range of motion and nontender. Neuro: Oriented X 3. No motor deficit. No sensory deficit. Reflexes normal. Normal steady gait. No focal neuro deficits noted. CN's II-XII intact bilaterally? Vascular: + radial pulses/+ 2 distal pedal pulses/+2 dorsalis pedis b/l. Normal cap refill. No cyanosis noted to upper extremity nails and lower extremity toes nails. Course Course Course Narrative: 14:35pm - 42-year-old female with a past medical history of asthma, diet-controlled diabetes, craig malformation presenting to the ED with complaints of an asthma exacerbation for the past 2 days worse today. Reports that she has been using her nebulizers and inhalers at home and no symptomatic relief. She reports fevers up to 101.0, generalized fatigue, malaise, wheezing, green sputum production, shortness of breath. she reports she has been hospitalized in the past for her asthma although has never been intubated. Plan: Will obtain labs, EKG, chest x-ray, blood cultures, lactic acid. Provide a L of IV fluids, hour long breathing treatment, 2 g of magnesium and 125 mg of Solu-Medrol re-evaluate. Reevaluation(s) Reevaluation #1: - Labs reviewed carbon dioxide 18. BUN 8. Random glucose 417. ALT 39. Otherwise all other labs are within normal limits. - Patient negative for COVID. - Awaiting chest x-ray at this time. Time: 15:37 Reevaluation #2: - lactic acid 3.2 most likely related to patient having updrafts of albuterol at home and as well here in the ER I do not believe this is sepsis at this time still awaiting CXR Time: 15:56 Reevaluation #3: - CXR WNL. Will plan to admit for asthma exacerbation. Patient understands agrees with this plan. Time: 16:35 [facility] - Asthma Medical Records Attestation: I reviewed the patient's medical records. Lab Data Attestation: I reviewed the patient's lab results. Result diagrams: 06/28/22 14:33 06/28/22 14:33 Labs: Lab Results 06/28/22 06/28/22 06/28/22 Range/Units 14:33 14:33 14:33 WBC 8.2 (4.8-10.8) X10*3/uL RBC 4.85 (4.20-5.50) X10*6/uL Hgb 14.8 (12.0-16.0) g/dl Hct 42.4 (37.0-47.0) % MCV 87.4 (80.0-98.0) fL MCH 30.5 (27.0-33.0) pg MCHC 34.9 (31.0-35.0) g/dl RDW 11.9 (11.0-16.0) % Plt Count 243 (160-400) X10*3/uL MPV 9.1 L (9.4-12.3) fL Immature Gran % (Auto) 0.6 H (0.0-0.4) % Neut % (Auto) 64.3 (45-73) % Lymph % (Auto) 21.7 (20-40) % [place] % (Auto) 9.4 (2-11) % Eos % (Auto) 3.5 (0-4) % Baso % (Auto) 0.5 (0-2) % Lymph # (Auto) 1.8 (1.2-4.9) X10*3/uL [place] # (Auto) 0.8 (0.1-1.2) X10*3/uL Eos # (Auto) 0.3 (0.0-0.4) X10*3/uL Baso # (Auto) 0.0 (0.0-0.2) X10*3/uL Abs Immat Gran (auto) 0.05 H (0.00-0.03) X10*3/uL Absolute Neuts (auto) 5.3 (2.0-8.3) x10*3/uL Absolute Nucleated RBC 0.000 (0.0-0.012) X10*3/uL Nucleated RBC % (auto) 0.0 (0.0-0.2) /100WBC PT (10.0-13.1) SEC INR (0.9-1.1) Sodium 135 (135-145) mmol/L Potassium 4.4 (3.3-5.1) mmol/L Chloride 103 (96-108) mmol/L Carbon Dioxide 18 L (22-29) mmol/L Anion Gap 18 (12-20) BUN 8 L (9-16) mg/dL Creatinine 0.80 (0.5-1.4) mg/dL Estim Creat Clear Calc 172.8 Estimated GFR > 60 Random Glucose 417 H* (60-115) mg/dL Lactic Acid (0.5-2.0) mmol/L Calcium 9.1 D (8.4-10.2) mg/dL Magnesium 1.8 (1.6-2.6) mg/dL Total Bilirubin 0.6 (0.0-1.0) mg/dL AST 20 (5-31) U/L ALT 39 H (0-31) U/L Alkaline Phosphatase 80 (39-117) U/L Troponin I High Sens (<3.5-17.0) ng/L Total Protein 6.8 (6.5-8.0) g/dL Albumin 3.9 (3.5-5.0) g/dL COVID-19 (BRIAN) Negative (Negative) COVID-19 Clin Com See Note 06/28/22 06/28/22 06/28/22 Range/Units 15:08 15:32 15:32 WBC (4.8-10.8) X10*3/uL RBC (4.20-5.50) X10*6/uL Hgb (12.0-16.0) g/dl Hct (37.0-47.0) % MCV (80.0-98.0) fL MCH (27.0-33.0) pg MCHC (31.0-35.0) g/dl RDW (11.0-16.0) % Plt Count (160-400) X10*3/uL MPV (9.4-12.3) fL Immature Gran % (Auto) (0.0-0.4) % Neut % (Auto) (45-73) % Lymph % (Auto) (20-40) % [place] % (Auto) (2-11) % Eos % (Auto) (0-4) % Baso % (Auto) (0-2) % Lymph # (Auto) (1.2-4.9) X10*3/uL [place] # (Auto) (0.1-1.2) X10*3/uL Eos # (Auto) (0.0-0.4) X10*3/uL Baso # (Auto) (0.0-0.2) X10*3/uL Abs Immat Gran (auto) (0.00-0.03) X10*3/uL Absolute Neuts (auto) (2.0-8.3) x10*3/uL Absolute Nucleated RBC (0.0-0.012) X10*3/uL Nucleated RBC % (auto) (0.0-0.2) /100WBC PT 10.9 (10.0-13.1) SEC INR 1.0 (0.9-1.1) Sodium (135-145) mmol/L Potassium (3.3-5.1) mmol/L Chloride (96-108) mmol/L Carbon Dioxide (22-29) mmol/L Anion Gap (12-20) BUN (9-16) mg/dL Creatinine (0.5-1.4) mg/dL Estim Creat Clear Calc Estimated GFR Random Glucose (60-115) mg/dL Lactic Acid 3.2 H* (0.5-2.0) mmol/L Calcium (8.4-10.2) mg/dL Magnesium (1.6-2.6) mg/dL Total Bilirubin (0.0-1.0) mg/dL AST (5-31) U/L ALT (0-31) U/L Alkaline Phosphatase (39-117) U/L Troponin I High Sens < 3.5 (<3.5-17.0) ng/L Total Protein (6.5-8.0) g/dL Albumin (3.5-5.0) g/dL COVID-19 (BRIAN) (Negative) COVID-19 Clin Com Imaging Data Chest x-ray: Attestation: I personally reviewed and interpreted this imaging study as follows: Radiologist's impression: FINDINGS: No significant abnormality is noted involving the heart, lungs, mediastinum, bony thorax or soft tissues. XR/XR chest 1V IMPRESSION: No acute cardiopulmonary process. ECG Data Attestation: I personally reviewed and interpreted this ECG as follows: ECG interpretation date: 06/28/22 ECG interpretation time: 14:25 Interpretation: Sinus tachycardia with ventricular rate of [address] interval normal QRS duration normal QT/QTC interval. No acute ischemic change are noted. Similar compared to prior EKG 03/19/2022. Critical Care Time Critical Care Time Critical Care Time: Yes Total Critical Care Time: 60 Attestation: I personally attest to this time spent taking care of the patient Discharge Plan Discharge Clinical Impression: Asthma exacerbation Patient Disposition: Admitted As Inpatient
[2022-06-28 15:57] LABS: Lactic Acid 3.2 mmol/L (0.5-2.0)
[2022-06-28 16:00] LABS: Troponin-I High Sensitivity < 3.5 ng/L (<3.5-17.0)
[2022-06-28] MEDS: guaiFEN/Codeine SF 200/20/10ML 10 ML LIQUID PO (16:30)
--- NOTE | 2022-06-28 17:16 | PHA.MEDREC ---
Pharmacy Consult ? Medication Reconciliation Pharmacy has completed the medication reconciliation. Patient confirmed medications. Brooke Lowe, PatriciaD
[2022-06-28 17:35] LABS: Reflex Lactate? Lactic Acid Added
--- NOTE | 2022-06-28 17:48 | PM.IMHP ---
History of Present Illness Date of Service: 06/28/22 Attending physician on admission: Herson Sal Chief Complaint: shortness of breath this is a 42-year-old female with history of asthma who presents to the emergency department with shortness of breath. For the past 5 days patient has had increasing cough with intermittent green phlegm production, rhinorrhea and shortness of breath. Her breathing became significantly worse today. She has been using her albuterol inhaler with no significant improvement in her symptoms. she denies any recent sick contacts.Given the worsening in her breathing she presented to the emergency department for evaluation. Initially she was tachycardic and tachypneic. She received multiple breathing treatments as well as IV Solu-Medro and IV magnesium. Chest x-ray showed no evidence of pneumonia, COVID-19 swab was negative She continued to have shortness of breath and wheezing in the decision was made to admit her to the hospital for further management. COVID vaccination status-Moderna x2 Review of Systems Review of Systems: Yes all other systems are reviewed and are negative Constitutional: Constitutional: Denies chills and Denies fever(s) ENT: Denies dizziness Cardiovascular: Cardiovascular: Denies chest pain and Reports dyspnea Respiratory: Respiratory: Reports cough, Reports dyspnea and Reports wheezing Gastrointestinal: Gastrointestinal: Denies abdominal pain, Denies nausea and Denies vomiting Neurologic: Denies dizziness Allergic/Immunologic: Allergic/Immunologic: Reports wheezing [facility] Medical History Asthma Chiari malformation type II COVID-19 Diabetes DVT (deep venous thrombosis) Functional capacity: independent ambulation Pertinent family history: Multiple family members with asthma including mom, sister, daughter Surgical History Hx of carpal tunnel repair Hx of knee surgery Hx of tonsillectomy Social History (Updated 06/28/22 @ 17:52 by TITUS Renner) Alcohol intake: never Patient Tobacco Use Status: Never used Tobacco Use of substances other than those prescribed or required for medical reasons: No Advance Directives: No Advance Directives Information Provided: Yes Meds Allergies Allergy/AdvReac Type Severity Reaction Status Date / Time Heparin Analogues Allergy Intermediate HIVES, Verified 12/22/21 12:19 [HEPARIN AGENTS] RASH, SEVERE BRUISING Heparin Combination Allergy Unknown Hives Uncoded 10/26/21 15:33 Active Medications: Current Medications Acetaminophen (Acetaminophen 325 Mg Tablet) 650 mg PO Q6H PRN PRN Reason: Pain, Mild (Pain Scale 1-3) Albuterol Sulfate (Albuterol Sulfate (0.042%) 1.25 Mg/3 Ml Vial.Neb) 1.25 mg INHALE RQ4H PRN PRN Reason: shortness of breath Albuterol/Ipratropium (Albuterol/Iprat 2.5/0.5mg 3 Ml Ampul.Neb) 3 ml INHALE RQ6H WHILE AWAKE [facility] Dextrose (Dextrose 50 % 25 Gm/50 Ml Syringe) 25 gm IVPUSH Q15M PRN; Protocol PRN Reason: per Hypoglycemia Standing Ord. Docusate Sodium (Docusate Sodium 100 Mg Capsule) 100 mg PO DAILY PRN PRN Reason: Constipation Glucose (Glucose Gel 15 Gm Gel..Gram.) 15 gm PO Q15M PRN; Protocol PRN Reason: per Hypoglycemia Standing Ord. Sodium Chloride (Ns) 1,000 mls @ 999 mls/hr IVCONT .Q1H1M [facility] Stop: 06/28/22 18:00 Last Admin: 06/28/22 17:40 Dose: 999 mls/hr Insulin Human Lispro (Insulin Lispro 100 Unit/Ml 3 Ml Vial) 0 unit SUBCUT QIDACHS [facility]; Protocol Methylprednisolone Sodium Succinate (Methylprednisolone Sod Succ 40 Mg/Ml Vial) 40 mg IVPUSH Q8H [facility] Ondansetron HCl (Ondansetron Hcl 4 Mg/2 Ml Vial) 4 mg IVPUSH Q8H PRN PRN Reason: Nausea and Vomiting Pharmacy Consult (Consult Rx Perform Med Rec) 1 each MISCELLANE ONCE PRN PRN Reason: Consult order Sodium Chloride (0.9 % Sodium Chloride Flush 3 Ml Syringe) 3 ml IVFLUSH QSHIFT [facility] Home Medications Medication Instructions Recorded Confirmed Last Taken Type glipizide 2.5 mg tablet, extended 1 tab PO BIDAC 06/28/22 06/28/22 Unknown History release 24 hr Physical Exam Vital Signs and Narrative: Vital Signs: Last Vital Signs Temp 97.9 F 06/28/22 14:19 Pulse 100 06/28/22 16:55 Resp 18 06/28/22 16:55 BP 157/98 H 06/28/22 14:19 Pulse Ox 97 06/28/22 14:19 O2 Del Method 06/28/22 14:19 BMI result Body Mass Index 104.1 Const: General: alert and awake Nutritional Appearance: overweight Orientation/consciousness: patient oriented x3 Resp: Other: diminished air entry; bilateral wheezing Auscultation: wheezes Cardio: Rate: tachycardic Heart sounds: S1 normal heart sound present and S2 normal heart sound present GI: Palpation (GI): Soft to palpation Neuro: General: patient oriented x3 Extrem: General: Yes no pedal edema Results Labs CBC and Chem 7: 06/28/22 14:33 06/28/22 14:33 Labs: Laboratory Results - last 24 hr 06/28/22 06/28/22 06/28/22 14:33 14:33 14:33 MCV 87.4 MCH 30.5 MCHC 34.9 RDW 11.9 Plt Count 243 MPV 9.1 L Immature Gran % (Auto) 0.6 H Neut % (Auto) 64.3 Lymph % (Auto) 21.7 [place] % (Auto) 9.4 Eos % (Auto) 3.5 Baso % (Auto) 0.5 Lymph # (Auto) 1.8 [place] # (Auto) 0.8 Eos # (Auto) 0.3 Baso # (Auto) 0.0 Abs Immat Gran (auto) 0.05 H Absolute Neuts (auto) 5.3 Absolute Nucleated RBC 0.000 Nucleated RBC % (auto) 0.0 PT INR Anion Gap 18 Estim Creat Clear Calc 172.8 Estimated GFR > 60 Random Glucose 417 H* Lactic Acid Calcium 9.1 D Magnesium 1.8 Total Bilirubin 0.6 AST 20 ALT 39 H Alkaline Phosphatase 80 Total Protein 6.8 Albumin 3.9 COVID-19 (BRIAN) Negative COVID-19 Clin Com See Note 06/28/22 06/28/22 15:08 15:32 MCV MCH MCHC RDW Plt Count MPV Immature Gran % (Auto) Neut % (Auto) Lymph % (Auto) [place] % (Auto) Eos % (Auto) Baso % (Auto) Lymph # (Auto) [place] # (Auto) Eos # (Auto) Baso # (Auto) Abs Immat Gran (auto) Absolute Neuts (auto) Absolute Nucleated RBC Nucleated RBC % (auto) PT 10.9 INR 1.0 Anion Gap Estim Creat Clear Calc Estimated GFR Random Glucose Lactic Acid 3.2 H* Calcium Magnesium Total Bilirubin AST ALT Alkaline Phosphatase Total Protein Albumin COVID-19 (BRIAN) COVID-19 Clin Com Imaging Radiologist's Impressions: Impressions Chest X-Ray 06/28/22 15:45 IMPRESSION: No acute cardiopulmonary process. Assessment and Plan (1) Asthma exacerbation: Status: Acute Plan this is a 42-year-old female with history of mild intermittent asthma, diabetes who presents to the emergency department with 5 day history of increasing shortness of breath and cough acute asthma exacerbation/acute bronchitis chest x-ray shows no evidence of pneumonia; covid 19 negative -given increased sputum production will cover with antibiotics -IV Solu-Medrol, breathing treatments scheduled and as needed diabetes Hold glipizide SSI, ADA diet Elevated lactic acid Likely type 2, secondary to breathing treatments No evidence of sepsis follow repeat dvt ppx- allergic to heparin - mechanical devices code status - full code attending - dr. sal given severity respiratory symptoms patient will likely need 2 midnight stay in the hospital for management of acute COPD exacerbation and acute bronchitis Quality Stroke Does the patient have a stroke diagnosis?: No VTE Prior VTE?: No VTE Risk Level:: Medical - moderate - high VTE Device Contraindication: N/A - Device Ordered VTE Drug Contraindication: Treatment Not Tolerated
[2022-06-28 18:23] LABS: Appearance Urine Clear; Color Urine Yellow; Glucose Urine UA >=1000 mg/dL (Negative); Leukocyte Esterase Urine Negative (Negative); Nitrite Urine Negative (Negative); PH 5.5 (5.0-9.0); Specific Gravity - Urine >= 1.030 (1.005-1.025); Urine Blood Trace (Negative); Urine Ketones 15 mg/dL (Negative); Urine Protein Negative (Neg-Trace)
[2022-06-28 18:25] LABS: ~Lactic Acid-LAB USE ONLY 4.8 mmol/L (0.5-2.0)
[2022-06-28 18:25] LABS: Bacteria Urine Trace (None Seen); Hyaline Casts Urine 0-2 /LPF (0-2); RBC Urine 0-2 /HPF (0-2); WBC Urine 0-5 /HPF (0-5)
[2022-06-28] MEDS: Albuterol/Iprat 2.5/0.5MG 3 ML AMPUL.NEB INHALE (19:27)
[2022-06-28] MEDS: Azithromycin 500 MG in 0.9 % Sodium Chloride 250 ML 125 MG IV (19:49)
[2022-06-28 20:07] LABS: Reflex Lactate? 2 Y
[2022-06-28 20:17] LABS: Glucose, Whole Blood 338 mg/dL (60-115)
[2022-06-28] MEDS: Insulin Lispro 100 UNIT/ML 3 ML VIAL SUBCUT (20:17)
[2022-06-28 20:50] LABS: ~Lactic Acid-LAB USE ONLY 5.4 mmol/L (0.5-2.0)
[2022-06-29] VITALS (9 sets, daily range): BP systolic 122–152; BP diastolic 69–72; PULSE 98–114; RESP 16–21; TEMP 36.6–36.8; O2SAT 95–98
[2022-06-29] MEDS: methylPREDNISolone Sod Succ 40 MG/ML VIAL IVPUSH ×3 (03:48→18:10)
--- NOTE | 2022-06-29 03:51 | PC.NURSE ---
pt a&o, no sob or chest pain at this time. pt sitting up in recliner chair. no sign of distress. medicated per mar. Will continue to monitor.
--- NOTE | 2022-06-29 05:13 | PC.NURSE ---
Took over assignment at 3:00am pt is sleeping with no sign of distress. Will continue to monitor.
--- NOTE | 2022-06-29 06:55 | PC.NURSE ---
pt is sitting in recliner watching a show on her cell phone, no respiratory distress at this time. Completed rounding and comfortable at this time.
[2022-06-29] MEDS: 0.9 % Sodium Chloride Flush 3 ML SYRINGE IVFLUSH ×3 (07:30→20:37)
--- NOTE | 2022-06-29 07:33 | PC.NURSE ---
Pt a/o x 3 no sob/eveline noted skin pink warm dry speaks in full sentences. amb (i) gait steady. lungs - insp wheezing all lobes. heart sounds - regular. abd soft n/t, bx =+ x 4 quads. c/o chest disc with coughing. pt aware of plan of care.
[2022-06-29 07:41] LABS: Glucose, Whole Blood 263 mg/dL (60-115)
[2022-06-29] MEDS: Albuterol/Iprat 2.5/0.5MG 3 ML AMPUL.NEB INHALE ×3 (08:02→16:17)
[2022-06-29 10:03] LABS: Glucose, Whole Blood 271 mg/dL (60-115)
[2022-06-29] MEDS: Insulin Lispro 100 UNIT/ML 3 ML VIAL SUBCUT ×4 (10:13→20:36)
[2022-06-29] MEDS: Benzonatate 100 MG CAPSULE PO (12:28)
[2022-06-29 13:28] LABS: Glucose, Whole Blood 412 mg/dL (60-115)
--- NOTE | 2022-06-29 13:39 | PC.NURSE ---
Summer Logan (CONSULTING PSYCHOLOGIST) made aware of POC 412 for lunch time insulin
[2022-06-29] MEDS: Insulin Lispro 100 UNIT/ML 3 ML VIAL 6 UNIT SUBCUT (14:16)
--- NOTE | 2022-06-29 14:23 | HO.PM.IMPN ---
Subjective Subjective Date of Service: 06/29/22 Interval History: Seen and examined this morning Follow-up for asthma Still having significant shortness of breath, persistent wheezing Ongoing cough with some phlegm production. Denies fever, chills Review of Systems Review of Systems: Yes all other systems are reviewed and are negative Constitutional Constitutional: Denies chills and Denies fever(s) Eyes Eyes: Denies blurry vision ENT Ears, Nose, Mouth, and Throat: Denies dizziness Cardiovascular Cardiovascular: Denies chest pain, Denies palpitations and Reports dyspnea Respiratory Respiratory: Reports cough and Reports dyspnea Gastrointestinal Gastrointestinal: Denies abdominal pain Neurologic Neurologic: Denies dizziness Endocrine Endocrine: Denies palpitations Physical Exam Vital Signs: Vital Signs: Last Vital Signs Temp 97.9 F 06/29/22 10:16 Pulse 98 06/29/22 11:26 Resp 18 06/29/22 11:26 BP 134/70 06/29/22 10:16 Pulse Ox 95 06/29/22 10:16 O2 Del Method 06/29/22 10:16 BMI result Body Mass Index 104.1 Const: General: alert and awake Nutritional Appearance: overweight Orientation/consciousness: patient oriented x3 Resp: Other: Improved aeration but still with bilateral wheezing Auscultation: wheezes Cardio: Rate: tachycardic Heart sounds: S1 normal heart sound present and S2 normal heart sound present GI: Palpation (GI): Soft to palpation Neuro: General: patient oriented x3 Extrem: General: Yes no pedal edema Objective Data Active Medications Acetaminophen (Acetaminophen 325 Mg Tablet) 650 mg PO Q6H PRN PRN Reason: Pain, Mild (Pain Scale 1-3) Albuterol Sulfate (Albuterol Sulfate (0.042%) 1.25 Mg/3 Ml Vial.Neb) 1.25 mg INHALE RQ4H PRN PRN Reason: shortness of breath Albuterol/Ipratropium (Albuterol/Iprat 2.5/0.5mg 3 Ml Ampul.Neb) 3 ml INHALE RQ4H WHILE AWAKE AMBREEN Last Admin: 06/29/22 11:25 Dose: 3 ml Documented By: DAISY Benzonatate (Benzonatate 100 Mg Capsule) 100 mg PO TID PRN PRN Reason: Cough Last Admin: 06/29/22 12:28 Dose: 100 mg Documented By: BEVERLY Dextrose (Dextrose 50 % 25 Gm/50 Ml Syringe) 25 gm IVPUSH Q15M PRN; Protocol PRN Reason: per Hypoglycemia Standing Ord. Docusate Sodium (Docusate Sodium 100 Mg Capsule) 100 mg PO DAILY PRN PRN Reason: Constipation Glucose (Glucose Gel 15 Gm Gel..Gram.) 15 gm PO Q15M PRN; Protocol PRN Reason: per Hypoglycemia Standing Ord. Azithromycin 500 mg/ Sodium (Chloride) 250 mls @ 125 mls/hr IV Q24H [facility] Last Infusion: 06/28/22 22:46 Dose: 0 mls/hr Documented By: JOSEPH Insulin Human Lispro (Insulin Lispro 100 Unit/Ml 3 Ml Vial) 0 unit SUBCUT QIDACHS [facility]; Protocol Last Admin: 06/29/22 13:41 Dose: 10 unit Documented By: BEVERLY Methylprednisolone Sodium Succinate (Methylprednisolone Sod Succ 40 Mg/Ml Vial) 40 mg IVPUSH Q8H [facility] Last Admin: 06/29/22 12:28 Dose: 40 mg Documented By: BEVERLY Ondansetron HCl (Ondansetron Hcl 4 Mg/2 Ml Vial) 4 mg IVPUSH Q8H PRN PRN Reason: Nausea and Vomiting Pharmacy Consult (Consult Rx Perform Med Rec) 1 each MISCELLANE ONCE PRN PRN Reason: Consult order Sodium Chloride (0.9 % Sodium Chloride Flush 3 Ml Syringe) 3 ml IVFLUSH QSHIFT [facility] Last Admin: 06/29/22 07:30 Dose: 3 ml Documented By: YESIOC Labs CBC & Chem 7: 06/28/22 14:33 06/28/22 14:33 Labs: Laboratory Results - last 24 hr 06/28/22 06/28/22 06/28/22 14:33 14:33 14:33 MCV 87.4 MCH 30.5 MCHC 34.9 RDW 11.9 Plt Count 243 MPV 9.1 L Immature Gran % (Auto) 0.6 H Neut % (Auto) 64.3 Lymph % (Auto) 21.7 [place] % (Auto) 9.4 Eos % (Auto) 3.5 Baso % (Auto) 0.5 Lymph # (Auto) 1.8 [place] # (Auto) 0.8 Eos # (Auto) 0.3 Baso # (Auto) 0.0 Abs Immat Gran (auto) 0.05 H Absolute Neuts (auto) 5.3 Absolute Nucleated RBC 0.000 Nucleated RBC % (auto) 0.0 PT INR Anion Gap 18 Estim Creat Clear Calc 172.8 Estimated GFR > 60 POC Glucose Random Glucose 417 H* Lactic Acid Lactic Acid F/U @ 2Hr Lactic Acid F/U @ 4Hr Calcium 9.1 D Magnesium 1.8 Total Bilirubin 0.6 AST 20 ALT 39 H Alkaline Phosphatase 80 Total Protein 6.8 Albumin 3.9 Urine Color Urine Appearance Urine pH Ur Specific [place] Urine Protein Urine Glucose (UA) Urine Ketones Urine Blood Urine Nitrite Ur Leukocyte Esterase Urine RBC Urine WBC Ur Squamous Epith Cells Urine Bacteria Hyaline Casts COVID-19 (BRIAN) Negative COVID-19 Clin Com See Note 06/28/22 06/28/22 06/28/22 15:08 15:32 18:03 MCV MCH MCHC RDW Plt Count MPV Immature Gran % (Auto) Neut % (Auto) Lymph % (Auto) [place] % (Auto) Eos % (Auto) Baso % (Auto) Lymph # (Auto) [place] # (Auto) Eos # (Auto) Baso # (Auto) Abs Immat Gran (auto) Absolute Neuts (auto) Absolute Nucleated RBC Nucleated RBC % (auto) PT 10.9 INR 1.0 Anion Gap Estim Creat Clear Calc Estimated GFR POC Glucose Random Glucose Lactic Acid 3.2 H* Lactic Acid F/U @ 2Hr 4.8 H* Lactic Acid F/U @ 4Hr Calcium Magnesium Total Bilirubin AST ALT Alkaline Phosphatase Total Protein Albumin Urine Color Urine Appearance Urine pH Ur Specific [place] Urine Protein Urine Glucose (UA) Urine Ketones Urine Blood Urine Nitrite Ur Leukocyte Esterase Urine RBC Urine WBC Ur Squamous Epith Cells Urine Bacteria Hyaline Casts COVID-19 (BRIAN) COVID-19 Clin Com 06/28/22 06/28/22 06/28/22 18:13 20:12 20:19 MCV MCH MCHC RDW Plt Count MPV Immature Gran % (Auto) Neut % (Auto) Lymph % (Auto) [place] % (Auto) Eos % (Auto) Baso % (Auto) Lymph # (Auto) [place] # (Auto) Eos # (Auto) Baso # (Auto) Abs Immat Gran (auto) Absolute Neuts (auto) Absolute Nucleated RBC Nucleated RBC % (auto) PT INR Anion Gap Estim Creat Clear Calc Estimated GFR POC Glucose 338 H Random Glucose Lactic Acid Lactic Acid F/U @ 2Hr Lactic Acid F/U @ 4Hr 5.4 H* Calcium Magnesium Total Bilirubin AST ALT Alkaline Phosphatase Total Protein Albumin Urine Color Yellow Urine Appearance Clear Urine pH 5.5 Ur Specific [place] >= 1.030 H Urine Protein Negative Urine Glucose (UA) >=1000 H Urine Ketones 15 Urine Blood Trace H Urine Nitrite Negative Ur Leukocyte Esterase Negative Urine RBC 0-2 Urine WBC 0-5 Ur Squamous Epith Cells 3-5 Urine Bacteria Trace Hyaline Casts 0-2 COVID-19 (BRIAN) COVID-19 Clin Com 06/29/22 06/29/22 06/29/22 07:24 09:57 13:20 MCV MCH MCHC RDW Plt Count MPV Immature Gran % (Auto) Neut % (Auto) Lymph % (Auto) [place] % (Auto) Eos % (Auto) Baso % (Auto) Lymph # (Auto) [place] # (Auto) Eos # (Auto) Baso # (Auto) Abs Immat Gran (auto) Absolute Neuts (auto) Absolute Nucleated RBC Nucleated RBC % (auto) PT INR Anion Gap Estim Creat Clear Calc Estimated GFR POC Glucose 263 H 271 H 412 H* Random Glucose Lactic Acid Lactic Acid F/U @ 2Hr Lactic Acid F/U @ 4Hr Calcium Magnesium Total Bilirubin AST ALT Alkaline Phosphatase Total Protein Albumin Urine Color Urine Appearance Urine pH Ur Specific [place] Urine Protein Urine Glucose (UA) Urine Ketones Urine Blood Urine Nitrite Ur Leukocyte Esterase Urine RBC Urine WBC Ur Squamous Epith Cells Urine Bacteria Hyaline Casts COVID-19 (BRIAN) COVID-19 Clin Com Assessment and Plan (1) Asthma exacerbation: Status: Acute Plan this is a 42-year-old female with history of mild intermittent asthma, diabetes who presents to the emergency department with 5 day history of increasing shortness of breath and cough acute asthma exacerbation/acute bronchitis chest x-ray shows no evidence of pneumonia; covid 19 negative -given increased sputum production will cover with antibiotics, continue IV azithromycin -IV Solu-Medrol, breathing treatments scheduled and as needed diabetes with hyperglycemia secondary to steroid use will resume glipizide continue SSI, ADA diet Elevated lactic acid Likely type 2, secondary to breathing treatments No evidence of sepsis dvt ppx- allergic to heparin - mechanical devices code status - full code attending - dr. vazquez Patient requires ongoing inpatient hospitalization due to need for acute asthma exacerbation, scheduled breathing treatments and systemic steroids and close monitoring to prevent respiratory failure Quality Stroke Does the patient have a stroke diagnosis?: No VTE Prior VTE?: No VTE Risk Level:: Medical - moderate - high VTE Device Contraindication: N/A - Device Ordered VTE Drug Contraindication: Treatment Not Tolerated
[2022-06-29 16:51] LABS: Glucose, Whole Blood 335 mg/dL (60-115)
--- NOTE | 2022-06-29 16:56 | PC.NURSE ---
No Glipizide 2.5mg PO available in [facility]. Pharmacy notified and will bring some. Awaiting now
[2022-06-29] MEDS: glipiZIDE XL 2.5 MG TAB.ER.24 PO (17:00)
[2022-06-29 17:56] LABS: Glucose, Whole Blood 307 mg/dL (60-115)
[2022-06-29] MEDS: Azithromycin 500 MG in 0.9 % Sodium Chloride 250 ML 125 MG IV (18:08)
[2022-06-29 20:29] LABS: Glucose, Whole Blood 341 mg/dL (60-115)
[2022-06-30] VITALS (8 sets, daily range): BP systolic 134–143; BP diastolic 71–87; PULSE 87–124; RESP 15–24; TEMP 36.9–37.4; O2SAT 95–98
[2022-06-30] MEDS: methylPREDNISolone Sod Succ 40 MG/ML VIAL IVPUSH ×3 (04:46→21:00)
[2022-06-30 07:27] LABS: Glucose, Whole Blood 258 mg/dL (60-115)
[2022-06-30] MEDS: Insulin Lispro 100 UNIT/ML 3 ML VIAL SUBCUT ×5 (09:06→21:00)
[2022-06-30] MEDS: Benzonatate 100 MG CAPSULE PO (09:09)
[2022-06-30] MEDS: Albuterol/Iprat 2.5/0.5MG 3 ML AMPUL.NEB INHALE ×4 (09:13→20:10)
[2022-06-30] MEDS: glipiZIDE XL 2.5 MG TAB.ER.24 PO ×2 (09:50→16:50)
[2022-06-30 12:22] LABS: Glucose, Whole Blood 374 mg/dL (60-115)
--- NOTE | 2022-06-30 14:02 | P.PNIM_ITS ---
Subjective Subjective Date of Service: 06/30/22 Interval History: seen and examined this morning follow up for asthma exacerbation reporting worsening DYSON, still with lots of coughing reports she didn't receiving breathing treatments overnight Review of Systems Review of Systems: Yes all other systems are reviewed and are negative Constitutional Constitutional: Denies chills and Denies fever(s) ENT Ears, Nose, Mouth, and Throat: Denies dizziness Cardiovascular Cardiovascular: Denies chest pain and Reports dyspnea on exertion Respiratory Respiratory: Reports cough and Reports dyspnea on exertion Gastrointestinal Gastrointestinal: Denies abdominal pain, Denies nausea and Denies vomiting Neurologic Neurologic: Denies dizziness Physical Exam Vital Signs: Vital Signs: Last Vital Signs Temp 98.1 F 06/29/22 20:00 Pulse 124 H 06/30/22 12:23 Resp 24 H 06/30/22 12:23 BP 143/78 H 06/30/22 12:23 Pulse Ox 96 06/30/22 12:23 O2 Del Method 06/30/22 12:23 BMI result Body Mass Index 104.1 Const: General: alert and awake Nutritional Appearance: overweight Orientation/consciousness: patient oriented x3 Resp: Other: Improved aeration but still with bilateral wheezing Auscultation: wheezes Cardio: Rate: tachycardic Heart sounds: S1 normal heart sound present and S2 normal heart sound present GI: Palpation (GI): Soft to palpation Neuro: General: patient oriented x3 Extrem: Other: RLE larger then LLE, chronic per patient since knee surgery. no pitting edema, no erythema or tenderness Objective Data Active Medications Acetaminophen (Acetaminophen 325 Mg Tablet) 650 mg PO Q6H PRN PRN Reason: Pain, Mild (Pain Scale 1-3) Albuterol Sulfate (Albuterol Sulfate (0.042%) 1.25 Mg/3 Ml Vial.Neb) 1.25 mg INHALE RQ4H PRN PRN Reason: shortness of breath Albuterol/Ipratropium (Albuterol/Iprat 2.5/0.5mg 3 Ml Ampul.Neb) 3 ml INHALE RQ4H WHILE AWAKE AMBREEN Last Admin: 06/30/22 11:45 Dose: 3 ml Documented By: DAISY Benzonatate (Benzonatate 100 Mg Capsule) 100 mg PO TID PRN PRN Reason: Cough Last Admin: 06/30/22 09:09 Dose: 100 mg Documented By: RAISA Dextrose (Dextrose 50 % 25 Gm/50 Ml Syringe) 25 gm IVPUSH Q15M PRN; Protocol PRN Reason: per Hypoglycemia Standing Ord. Docusate Sodium (Docusate Sodium 100 Mg Capsule) 100 mg PO DAILY PRN PRN Reason: Constipation Glipizide (Glipizide Xl 2.5 Mg Tab.Er.24) 2.5 mg PO BIDAC [facility] Last Admin: 06/30/22 09:50 Dose: 2.5 mg Documented By: RAISA Glucose (Glucose Gel 15 Gm Gel..Gram.) 15 gm PO Q15M PRN; Protocol PRN Reason: per Hypoglycemia Standing Ord. Azithromycin 500 mg/ Sodium (Chloride) 250 mls @ 125 mls/hr IV Q24H [facility] Last Infusion: 06/29/22 20:16 Dose: 0 mls/hr Documented By: KISHOR Insulin Human Lispro (Insulin Lispro 100 Unit/Ml 3 Ml Vial) [facility]; Protocol Last Admin: 06/30/22 13:02 Dose: 10 unit Documented By: RAISA Methylprednisolone Sodium Succinate (Methylprednisolone Sod Succ 40 Mg/Ml Vial) 40 mg IVPUSH Q12H [facility] Last Admin: 06/30/22 09:07 Dose: 40 mg Documented By: RAISA Ondansetron HCl (Ondansetron Hcl 4 Mg/2 Ml Vial) 4 mg IVPUSH Q8H PRN PRN Reason: Nausea and Vomiting Pharmacy Consult (Consult Rx Perform Med Rec) 1 each MISCELLANE ONCE PRN PRN Reason: Consult order Sodium Chloride (0.9 % Sodium Chloride Flush 3 Ml Syringe) 3 ml IVFLUSH QSHIFT [facility] Last Admin: 06/30/22 09:08 Dose: Not Given Documented By: RAISA Non-Admin Reason: used 10 ml during medication iv admin Labs CBC & Chem 7: 06/28/22 14:33 06/28/22 14:33 Labs: Laboratory Results - last 24 hr 06/29/22 06/29/22 06/29/22 15:30 17:53 20:25 POC Glucose 335 H 307 H 341 H 06/30/22 06/30/22 07:06 12:17 POC Glucose 258 H 374 H* Microbiology Microbiology Results: Microbiology 06/28/22 15:32 Blood Culture - Preliminary Blood - Venous No growth after 24 hours. 06/28/22 15:08 Blood Culture - Preliminary Blood - Venous No growth after 24 hours. Assessment and Plan (1) Asthma exacerbation: Status: Acute Plan this is a 42-year-old female with history of mild intermittent asthma, diabetes who presents to the emergency department with 5 day history of increasing shortness of breath and cough acute asthma exacerbation/acute bronchitis chest x-ray shows no evidence of pneumonia; covid 19 negative. still with a lot of coughing, DYSON and wheezing No hypoxia -will repeat CXR -continue IV azithromycin -continue IV Solu-Medrol, breathing treatments scheduled and as needed diabetes with hyperglycemia secondary to steroid use will resume glipizide continue SSI, ADA diet Elevated lactic acid Likely type 2, secondary to breathing treatments No evidence of sepsis dvt ppx- allergic to heparin - mechanical devices code status - full code attending - dr. sal Patient requires ongoing inpatient hospitalization due to need for acute asthma exacerbation, scheduled breathing treatments and systemic steroids and close monitoring to prevent respiratory failure Quality Stroke Does the patient have a stroke diagnosis?: No VTE Prior VTE?: No VTE Risk Level:: Medical - moderate - high VTE Device Contraindication: N/A - Device Ordered VTE Drug Contraindication: Treatment Not Tolerated
--- NOTE | 2022-06-30 14:05 | PC.NURSE ---
Pt alert and oriented to self, time, place and situation. Has dry, sometimes hacking cough- not productive. Tessalon jacob given per orders. On room air, lung sounds clear/dim bases with expiratory wheezing throughout. Denies pain, CP, some SOB on exertion when wearing mask especially, however tolerated walking with respiratory post treatment well per verbal report. +BS x 4, abd soft non tender. No noted edema, skin appears to be intact. +PP bilaterally. Not on tele monitor.
--- NOTE | 2022-06-30 14:21 | MHC.CM.PN ---
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
[2022-06-30 15:36] LABS: B Type Natriuretic Peptide 17 pg/mL (<100)
[2022-06-30 15:47] LABS: Anion Gap 20 (12-20); Blood Urea Nitrogen 17 mg/dL (9-16); Calcium 9.1 mg/dL (8.4-10.2); Carbon Dioxide 11 mmol/L (22-29); Chloride 104 mmol/L (96-108); Creatinine Clr Calc Pharmacy 139.7; Estimated Glomerular Filt Rate > 60; Glucose Random 451 mg/dL (60-115); Potassium 4.6 mmol/L (3.3-5.1); Sodium 130 mmol/L (135-145)
[2022-06-30 16:38] LABS: Glucose, Whole Blood 449 mg/dL (60-115)
[2022-06-30] MEDS: 0.9 % Sodium Chloride Flush 3 ML SYRINGE IVFLUSH ×2 (16:50→21:00)
[2022-06-30] MEDS: Azithromycin 500 MG in 0.9 % Sodium Chloride 250 ML 125 MG IV (17:47)
[2022-06-30 19:45] LABS: Glucose, Whole Blood 395 mg/dL (60-115)
[2022-06-30] MEDS: Insulin Lispro 100 UNIT/ML 3 ML VIAL 10 UNIT SUBCUT (21:45)
[2022-07-01] VITALS (11 sets, daily range): BP systolic 126–166; BP diastolic 60–77; PULSE 90–110; RESP 14–19; TEMP 36.2–36.8; O2SAT 94–98
[2022-07-01] MEDS: Albuterol/Iprat 2.5/0.5MG 3 ML AMPUL.NEB INHALE ×5 (01:13→19:56)
--- NOTE | 2022-07-01 03:19 | MHC.PIE ---
p; poc 395 i; dr stokes notified, give humalog ss now, new ordr humalog 10 u now e; will cont to chertor
[2022-07-01 07:40] LABS: Glucose, Whole Blood 234 mg/dL (60-115)
[2022-07-01] MEDS: glipiZIDE XL 2.5 MG TAB.ER.24 PO ×2 (08:00→17:10)
[2022-07-01] MEDS: Insulin Lispro 100 UNIT/ML 3 ML VIAL SUBCUT ×7 (08:01→22:13)
[2022-07-01] MEDS: 0.9 % Sodium Chloride Flush 3 ML SYRINGE IVFLUSH ×2 (08:01→17:10)
[2022-07-01] MEDS: methylPREDNISolone Sod Succ 40 MG/ML VIAL IVPUSH ×2 (08:01→22:12)
[2022-07-01 11:34] LABS: Glucose, Whole Blood 368 mg/dL (60-115)
--- NOTE | 2022-07-01 14:54 | HO.PM.IMPN ---
Subjective Subjective Date of Service: 07/01/22 Interval History: seen and examined this morning follow up for asthma still has significant wheezing and dyspnea on exertion Review of Systems Review of Systems: Yes all other systems are reviewed and are negative Constitutional Constitutional: Denies chills and Denies fever(s) ENT Ears, Nose, Mouth, and Throat: Denies dizziness Cardiovascular Cardiovascular: Denies chest pain, Denies palpitations, Reports dyspnea and Reports dyspnea on exertion Respiratory Respiratory: Denies cough, Reports dyspnea and Reports dyspnea on exertion Gastrointestinal Gastrointestinal: Denies abdominal pain, Denies nausea and Denies vomiting Neurologic Neurologic: Denies dizziness Endocrine Endocrine: Denies palpitations Physical Exam Vital Signs: Vital Signs: Last Vital Signs Temp 98.2 F 07/01/22 11:19 Pulse 94 07/01/22 11:53 Resp 17 07/01/22 11:53 BP 166/77 H 07/01/22 11:19 Pulse Ox 97 07/01/22 11:19 O2 Del Method 07/01/22 11:19 BMI result Body Mass Index 104.1 Const: General: alert and awake Nutritional Appearance: overweight Orientation/consciousness: patient oriented x3 Resp: Other: Improved aeration but still with bilateral wheezing Auscultation: wheezes Cardio: Rate: tachycardic Heart sounds: S1 normal heart sound present and S2 normal heart sound present GI: Palpation (GI): Soft to palpation Neuro: General: patient oriented x3 Extrem: Other: RLE larger then LLE, chronic per patient since knee surgery. no pitting edema, no erythema or tenderness General: Yes no pedal edema Objective Data Active Medications Acetaminophen (Acetaminophen 325 Mg Tablet) 650 mg PO Q6H PRN PRN Reason: Pain, Mild (Pain Scale 1-3) Albuterol Sulfate (Albuterol Sulfate (0.042%) 1.25 Mg/3 Ml Vial.Neb) 1.25 mg INHALE RQ4H PRN PRN Reason: shortness of breath Albuterol/Ipratropium (Albuterol/Iprat 2.5/0.5mg 3 Ml Ampul.Neb) 3 ml INHALE RQ4H WHILE AWAKE AMBREEN Last Admin: 07/01/22 11:52 Dose: 3 ml Documented By: SONYA Benzonatate (Benzonatate 100 Mg Capsule) 100 mg PO TID PRN PRN Reason: Cough Last Admin: 06/30/22 09:09 Dose: 100 mg Documented By: RAISA Dextrose (Dextrose 50 % 25 Gm/50 Ml Syringe) 25 gm IVPUSH Q15M PRN; Protocol PRN Reason: per Hypoglycemia Standing Ord. Docusate Sodium (Docusate Sodium 100 Mg Capsule) 100 mg PO DAILY PRN PRN Reason: Constipation Glipizide (Glipizide Xl 2.5 Mg Tab.Er.24) 2.5 mg PO BIDAC [facility] Last Admin: 07/01/22 08:00 Dose: 2.5 mg Documented By: JADON Glucose (Glucose Gel 15 Gm Gel..Gram.) 15 gm PO Q15M PRN; Protocol PRN Reason: per Hypoglycemia Standing Ord. Guaifenesin/Codeine Phosphate (Guaifen/Codeine Sf 200/20/10ml 10 Ml Liquid) 5 ml PO Q6H PRN PRN Reason: Cough Azithromycin 500 mg/ Sodium (Chloride) 250 mls @ 125 mls/hr IV Q24H [facility] Last Infusion: 06/30/22 20:59 Dose: 0 mls/hr Documented By: ALLEGRA Insulin Human Lispro (Insulin Lispro 100 Unit/Ml 3 Ml Vial) 0 unit SUBCUT QIDACHS [facility]; Protocol Last Admin: 07/01/22 11:45 Dose: 10 unit Documented By: JADON Insulin Human Lispro (Insulin Lispro 100 Unit/Ml 3 Ml Vial) 5 unit SUBCUT TIDAC [facility] Last Admin: 07/01/22 11:46 Dose: 5 unit Documented By: JADON Methylprednisolone Sodium Succinate (Methylprednisolone Sod Succ 40 Mg/Ml Vial) 40 mg IVPUSH Q12H [facility] Last Admin: 07/01/22 08:01 Dose: 40 mg Documented By: JADON Ondansetron HCl (Ondansetron Hcl 4 Mg/2 Ml Vial) 4 mg IVPUSH Q8H PRN PRN Reason: Nausea and Vomiting Pharmacy Consult (Consult Rx Perform Med Rec) 1 each MISCELLANE ONCE PRN PRN Reason: Consult order Sodium Chloride (0.9 % Sodium Chloride Flush 3 Ml Syringe) 3 ml IVFLUSH QSHIFT [facility] Last Admin: 07/01/22 08:01 Dose: 3 ml Documented By: JADON Labs CBC & Chem 7: 06/28/22 14:33 09/10/22 15:03 Labs: Laboratory Results - last 24 hr 06/30/22 06/30/22 06/30/22 15:03 15:03 15:50 Anion Gap 20 Estim Creat Clear Calc 139.7 Estimated GFR > 60 POC Glucose 449 H* Random Glucose 451 H* Calcium 9.1 B-Natriuretic Peptide 17 06/30/22 07/01/22 07/01/22 19:26 07:35 11:21 Anion Gap Estim Creat Clear Calc Estimated GFR POC Glucose 395 H* 234 H 368 H* Random Glucose Calcium B-Natriuretic Peptide Microbiology Microbiology Results: Microbiology 06/28/22 15:32 Blood Culture - Preliminary Blood - Venous No growth after 48 hours. 06/28/22 15:08 Blood Culture - Preliminary Blood - Venous No growth after 48 hours. Assessment and Plan (1) Asthma exacerbation: Status: Acute Plan this is a 42-year-old female with history of mild intermittent asthma, diabetes who presents to the emergency department with 5 day history of increasing shortness of breath and cough acute asthma exacerbation/acute bronchitis chest x-ray shows no evidence of pneumonia; covid 19 negative. still with a lot of coughing, DYSON and wheezing repeat CXR negative for pneumonia, BNP negative; recent outpatient echo and stress test negative per patient No hypoxia -continue IV azithromycin -continue IV Solu-Medrol, breathing treatments scheduled and as needed -check respiratory pathogen panel diabetes with hyperglycemia secondary to steroid use will resume glipizide -add premeal insulin -continue SSI, ADA diet Elevated lactic acid Likely type 2, secondary to breathing treatments No evidence of sepsis dvt ppx- allergic to heparin - mechanical devices code status - full code Patient requires ongoing inpatient hospitalization due to need for acute asthma exacerbation, scheduled breathing treatments and systemic steroids and close monitoring to prevent respiratory failure Quality Stroke Does the patient have a stroke diagnosis?: No VTE Prior VTE?: No VTE Risk Level:: Medical - moderate - high VTE Device Contraindication: N/A - Device Ordered VTE Drug Contraindication: Treatment Not Tolerated
[2022-07-01] MEDS: Lactated Ringers 1,000 ML 100 ML IVCONT ×2 (15:16→23:29)
[2022-07-01 16:57] LABS: Glucose, Whole Blood 356 mg/dL (60-115)
[2022-07-01] MEDS: Azithromycin 500 MG in 0.9 % Sodium Chloride 250 ML 125 MG IV (17:07)
[2022-07-01 20:33] LABS: Glucose, Whole Blood 424 mg/dL (60-115)
[2022-07-01] MEDS: Insulin Lispro 100 UNIT/ML 3 ML VIAL 10 UNIT SUBCUT (22:12)
[2022-07-01] MEDS: Acetaminophen 325 MG TABLET 650 MG PO (22:16)
[2022-07-02] VITALS (11 sets, daily range): BP systolic 125–144; BP diastolic 58–82; PULSE 68–114; RESP 15–22; TEMP 36–36.7; O2SAT 93–98; BMI 47.2
[2022-07-02 07:11] LABS: Glucose, Whole Blood 260 mg/dL (60-115)
[2022-07-02] MEDS: Albuterol/Iprat 2.5/0.5MG 3 ML AMPUL.NEB INHALE ×4 (08:22→19:55)
[2022-07-02] MEDS: methylPREDNISolone Sod Succ 40 MG/ML VIAL IVPUSH ×2 (08:37→21:04)
[2022-07-02] MEDS: Insulin Lispro 100 UNIT/ML 3 ML VIAL SUBCUT ×7 (08:37→21:04)
[2022-07-02] MEDS: glipiZIDE XL 2.5 MG TAB.ER.24 PO ×2 (08:38→17:29)
--- NOTE | 2022-07-02 09:58 | HO.PM.IMPN ---
Subjective Subjective Date of Service: 07/02/22 Interval History: seen and examined this morning follow up for asthma still has significant wheezing and dyspnea on exertion Review of Systems Review of Systems: Yes all other systems are reviewed and are negative Constitutional Constitutional: Denies chills and Denies fever(s) ENT Ears, Nose, Mouth, and Throat: Denies dizziness Cardiovascular Cardiovascular: Denies chest pain, Denies palpitations, Reports dyspnea and Reports dyspnea on exertion Respiratory Respiratory: Denies cough, Reports dyspnea and Reports dyspnea on exertion Gastrointestinal Gastrointestinal: Denies abdominal pain, Denies nausea and Denies vomiting Neurologic Neurologic: Denies dizziness Endocrine Endocrine: Denies palpitations Physical Exam Vital Signs: Vital Signs: Last Vital Signs Temp 97 F 07/02/22 07:01 Pulse 75 07/02/22 08:22 Resp 15 07/02/22 08:22 BP 128/62 07/02/22 07:01 Pulse Ox 96 07/02/22 07:01 O2 Del Method 07/02/22 07:01 BMI result Body Mass Index 104.1 Appearing in no acute distress lung sounds expiratory wheezing heart regular rate rhythm, clear S1, S2 positive bowel sounds, abdomen is soft, nontender neuro patient is alert x3, no focal deficits Objective Data Active Medications Acetaminophen (Acetaminophen 325 Mg Tablet) 650 mg PO Q6H PRN PRN Reason: Pain, Mild (Pain Scale 1-3) Last Admin: 07/01/22 22:16 Dose: 650 mg Documented By: ALLEGRA Albuterol Sulfate (Albuterol Sulfate (0.042%) 1.25 Mg/3 Ml Vial.Neb) 1.25 mg INHALE RQ4H PRN PRN Reason: shortness of breath Albuterol/Ipratropium (Albuterol/Iprat 2.5/0.5mg 3 Ml Ampul.Neb) 3 ml INHALE RQ4H WHILE AWAKE AMBREEN Last Admin: 07/02/22 08:22 Dose: 3 ml Documented By: SEBAS Benzonatate (Benzonatate 100 Mg Capsule) 100 mg PO TID PRN PRN Reason: Cough Last Admin: 06/30/22 09:09 Dose: 100 mg Documented By: RAISA Dextrose (Dextrose 50 % 25 Gm/50 Ml Syringe) 25 gm IVPUSH Q15M PRN; Protocol PRN Reason: per Hypoglycemia Standing Ord. Docusate Sodium (Docusate Sodium 100 Mg Capsule) 100 mg PO DAILY PRN PRN Reason: Constipation Glipizide (Glipizide Xl 2.5 Mg Tab.Er.24) 2.5 mg PO BIDAC [facility] Last Admin: 07/02/22 08:38 Dose: 2.5 mg Documented By: HENRY Glucose (Glucose Gel 15 Gm Gel..Gram.) 15 gm PO Q15M PRN; Protocol PRN Reason: per Hypoglycemia Standing Ord. Guaifenesin/Codeine Phosphate (Guaifen/Codeine Sf 200/20/10ml 10 Ml Liquid) 5 ml PO Q6H PRN PRN Reason: Cough Azithromycin 500 mg/ Sodium (Chloride) 250 mls @ 125 mls/hr IV Q24H [facility] Last Infusion: 07/01/22 19:10 Dose: 0 mls/hr Documented By: ALLEGRA Lactated Ringer's (Lr) 1,000 mls @ 100 mls/hr IVCONT .Q10H [facility] Last Infusion: 07/02/22 08:38 Dose: 0 mls/hr Documented By: HENRY Insulin Human Lispro (Insulin Lispro 100 Unit/Ml 3 Ml Vial) 0 unit SUBCUT QIDACHS [facility]; Protocol Last Admin: 07/02/22 08:37 Dose: 6 unit Documented By: HENRY Insulin Human Lispro (Insulin Lispro 100 Unit/Ml 3 Ml Vial) 5 unit SUBCUT TIDAC [facility] Last Admin: 07/02/22 08:37 Dose: 5 unit Documented By: HENRY Methylprednisolone Sodium Succinate (Methylprednisolone Sod Succ 40 Mg/Ml Vial) 40 mg IVPUSH Q12H [facility] Last Admin: 07/02/22 08:37 Dose: 40 mg Documented By: HENRY Ondansetron HCl (Ondansetron Hcl 4 Mg/2 Ml Vial) 4 mg IVPUSH Q8H PRN PRN Reason: Nausea and Vomiting Pharmacy Consult (Consult Rx Perform Med Rec) 1 each MISCELLANE ONCE PRN PRN Reason: Consult order Sodium Chloride (0.9 % Sodium Chloride Flush 3 Ml Syringe) 3 ml IVFLUSH QSHIFT [facility] Last Admin: 07/02/22 08:37 Dose: Not Given Documented By: HENRY Non-Admin Reason: IV Running Labs CBC & Chem 7: 06/28/22 14:33 06/30/22 15:03 Labs: Laboratory Results - last 24 hr 07/01/22 07/01/22 07/01/22 11:21 16:46 20:29 POC Glucose 368 H* 356 H* 424 H* 07/02/22 07:01 POC Glucose 260 H Assessment and Plan (1) Asthma exacerbation: Status: Acute Plan 42-year-old female with history of mild intermittent asthma, diabetes who presents to the emergency department with 5 day history of increasing shortness of breath and cough Acute asthma exacerbation with history of chronic intermittent asthma Possible acute bronchitis Negative for COVID-19 or pneumonia Hypoxia Continue azithromycin, IV Solu-Medrol and regularly scheduled DuoNebs respiratory pathogen panel pending Hyponatremia Likely related to IV fluids, will discontinue Follow BMP Diabetes mellitus with hyperglycemia Resume glipizide Sliding scale, ADA diet Elevated lactic acid Likely type 2, secondary to breathing treatments No evidence of sepsis dvt ppx- allergic to heparin - mechanical devices, early ambulation Attending Dr. Choudhary code status - full code Patient requires ongoing inpatient hospitalization due to need for acute asthma exacerbation, scheduled breathing treatments and systemic steroids and close monitoring to prevent respiratory failure Quality Stroke Does the patient have a stroke diagnosis?: No VTE Prior VTE?: No VTE Risk Level:: Medical - moderate - high VTE Device Contraindication: N/A - Device Ordered VTE Drug Contraindication: Treatment Not Tolerated
[2022-07-02 10:34] LABS: Adenovirus PCR Not Detected (Not Detect.); Bordetella parapertussis PCR Not Detected (Not Detect.); Bordetella pertussis PCR Not Detected (Not Detect.); Chlamydia pneumoniae PCR Not Detected (Not Detect.); Coronavirus 229E PCR Not Detected (Not Detect.); Coronavirus HKU1 PCR Not Detected (Not Detect.); Coronavirus NL63 PCR Not Detected (Not Detect.); Coronavirus OC43 PCR Not Detected (Not Detect.); Human metapneumovirus PCR Not Detected (Not Detect.); Influenza A PCR Not Detected (Not Detect.); Influenza B PCR Not Detected (Not Detect.); Mycoplasma pneumoniae PCR Not Detected (Not Detect.); Parainfluenza 1 PCR Not Detected (Not Detect.); Parainfluenza 2 PCR Not Detected (Not Detect.); Parainfluenza 3 PCR Not Detected (Not Detect.); Parainfluenza 4 PCR Not Detected (Not Detect.); RSV PCR Not Detected (Not Detect.); Rhino/Enterovirus PCR Detected (Not Detect.); SARS-CoV-2 PCR Not Detected (Not Detect.)
[2022-07-02 11:28] LABS: Glucose, Whole Blood 446 mg/dL (60-115)
--- NOTE | 2022-07-02 13:02 | MHC.CM.PN ---
EMR REVIEW, PATIENT CONTINUES TO NEED INPATIENT HOSPITALIZATION R/T ACUTE ASTHMA EXACERBATION, SCHEDULED BREATHING TREATMENT AND SYSTEMIC STEROIDS WITH CLOSE MONITORING TO PREVENT RESPIRATORY FAILURE. D/C PLAN CONTINUES TO BE HOME SELF-CARE. CM WILL FOLLOW FOR D/C NEEDS.
[2022-07-02 16:37] LABS: Glucose, Whole Blood 407 mg/dL (60-115)
[2022-07-02] MEDS: Acetaminophen 325 MG TABLET 650 MG PO (17:29)
[2022-07-02] MEDS: Azithromycin 500 MG in 0.9 % Sodium Chloride 250 ML 125 MG IV (17:29)
[2022-07-02] MEDS: 0.9 % Sodium Chloride Flush 3 ML SYRINGE IVFLUSH (17:29)
[2022-07-02 20:48] LABS: Glucose, Whole Blood 411 mg/dL (60-115)
--- NOTE | 2022-07-02 23:30 | PC.NURSE ---
pt's blood sugar at bedtime was 411, 10 units of humalog given, Dr. Márquez aware.
[2022-07-03] MEDS: 0.9 % Sodium Chloride Flush 3 ML SYRINGE IVFLUSH ×2 (00:07→08:06)
[2022-07-03 03:29] VITALS: BP 118/66; PULSE 73; RESP 18; TEMP 36.2; O2SAT 93
[2022-07-03 06:14] LABS: Anion Gap 14 (12-20); Blood Urea Nitrogen 12 mg/dL (9-16); Calcium 8.5 mg/dL (8.4-10.2); Carbon Dioxide 26 mmol/L (22-29); Chloride 102 mmol/L (96-108); Creatinine Clr Calc Pharmacy 127.4; Estimated Glomerular Filt Rate > 60; Glucose Random 267 mg/dL (60-115); Potassium 4.6 mmol/L (3.3-5.1); Sodium 137 mmol/L (135-145)
[2022-07-03 07:38] VITALS: BP 121/69; PULSE 79; RESP 18; TEMP 36.3; O2SAT 93
[2022-07-03 08:00] LABS: Glucose, Whole Blood 250 mg/dL (60-115)
[2022-07-03] MEDS: glipiZIDE XL 2.5 MG TAB.ER.24 PO (08:05)
[2022-07-03] MEDS: Insulin Lispro 100 UNIT/ML 3 ML VIAL SUBCUT ×4 (08:06→12:19)
[2022-07-03] MEDS: methylPREDNISolone Sod Succ 40 MG/ML VIAL IVPUSH (08:06)
--- NOTE | 2022-07-03 08:37 | PM.DS ---
DS: Providers Provider Date of Service: 07/03/22 Date of admission: 07/01/22 10:52 Primary care physician: Jonna Carvalho MD Attending physician on discharge: Cachorro Choudhary Discharging clinician: Shante Upton DS: Diagnosis Discharge Diagnosis (1) Asthma exacerbation: Status: Acute DS: Summary Hospital Course Hospital Course: HP as per admitting provider this is a 42-year-old female with history of asthma who presents to the emergency department with shortness of breath.? For the past 5 days patient has had increasing cough with intermittent green phlegm production, rhinorrhea and shortness of breath.? Her breathing became significantly worse today.? She has been using her albuterol inhaler with no significant improvement in her symptoms. ? she denies any recent sick contacts.Given the worsening in her breathing she presented to the emergency department for evaluation.? Initially she was tachycardic and tachypneic.? She received multiple breathing treatments as well as IV Solu-Medro and IV magnesium.? ? Chest x-ray showed no evidence of pneumonia, COVID-19 swab was negative She continued to have shortness of breath and wheezing in the decision was made to admit her to the hospital for further management . COVID vaccination status-Moderna x2 Acute asthma exacerbation with history of chronic intermittent asthma Negative for COVID-19 or pneumonia Treated with azithromycin, IV Solu-Medrol and scheduled DuoNebs Will continue prednisone for 4 more days respiratory pathogen panel positive for rhino virus Hyponatremia Resolved Treated with IV fluids Diabetes mellitus with hyperglycemia Treated with sliding scale and ADA diet Resume home medications Elevated lactic acid Likely type 2, secondary to breathing treatments No evidence of sepsis Time Spent with Patient Time attestation: Total time spent providing and/or coordinating discharge services: Discharge coordination time: Greater than 30 minutes Quality: Safe Use of Opioids Does Pt have an Active Cancer Diagnosis on the Problem List?: No Quality: Stroke Does the patient have a stroke diagnosis?: No Physical Exam Vital Signs: Vital Signs: Last Vital Signs Temp 97.4 F 07/03/22 07:38 Pulse 79 07/03/22 07:38 Resp 18 07/03/22 07:38 BP 121/69 07/03/22 07:38 Pulse Ox 93 07/03/22 07:38 O2 Del Method 07/03/22 07:38 BMI result Body Mass Index 47.2 Appearing in no acute distress head is normocephalic atraumatic eyes pupils are PERRLA sclera is anicteric mouth throat mucous membranes are intact and moist neck is supple no lymphadenopathy, no JVD noted lung sounds are clear to auscultation heart regular rate rhythm, clear S1, S2 positive bowel sounds, abdomen is soft, nontender neuro patient is alert x3, no focal deficits DS: Data Data Completed and Pending Labs on day of discharge: Laboratory Results - last 24 hr 07/02/22 07/02/22 07/02/22 08:43 11:11 16:30 Sodium Potassium Chloride Carbon Dioxide Anion Gap BUN Creatinine Estim Creat Clear Calc Estimated GFR POC Glucose 446 H* 407 H* Random Glucose Calcium Respiratory Panel [place] SEE NOTE Adenovirus (Rapid PCR) Not Detected B.pert (TEM-PCR) Not Detected B.parapertussis DNA PCR Not Detected C. pneumoniae DNA (PCR) Not Detected Coronavirus OC43 (PCR) Not Detected Coronavirus HKU1 (PCR) Not Detected Coronavirus 229E (PCR) Not Detected Coronavirus NL63 (PCR) Not Detected Human Metapneumovir PCR Not Detected Influenza A (RT-PCR) Not Detected Influenza B (RT-PCR) Not Detected M. pneumoniae (PCR) Not Detected Parainfluenza 1 (PCR) Not Detected Parainfluenza 2 (PCR) Not Detected Parainfluenza 3 (PCR) Not Detected Parainfluenza 4 (PCR) Not Detected RSV (PCR) Not Detected Entero/Rhino (PCR) Detected A SARS-CoV-2 RNA (RT-PCR) Not Detected 07/02/22 07/03/22 07/03/22 20:40 05:35 07:36 Sodium 137 Potassium 4.6 Chloride 102 Carbon Dioxide 26 Anion Gap 14 BUN 12 Creatinine 0.62 Estim Creat Clear Calc 127.4 Estimated GFR > 60 POC Glucose 411 H* 250 H Random Glucose 267 H Calcium 8.5 D Respiratory Panel [place] Adenovirus (Rapid PCR) B.pert (TEM-PCR) B.parapertussis DNA PCR C. pneumoniae DNA (PCR) Coronavirus OC43 (PCR) Coronavirus HKU1 (PCR) Coronavirus 229E (PCR) Coronavirus NL63 (PCR) Human Metapneumovir PCR Influenza A (RT-PCR) Influenza B (RT-PCR) M. pneumoniae (PCR) Parainfluenza 1 (PCR) Parainfluenza 2 (PCR) Parainfluenza 3 (PCR) Parainfluenza 4 (PCR) RSV (PCR) Entero/Rhino (PCR) SARS-CoV-2 RNA (RT-PCR) Preliminary micro results at discharge 06/28/22 15:32 Blood Culture - Preliminary Blood - Venous No growth after 48 hours. 06/28/22 15:08 Blood Culture - Preliminary Blood - Venous No growth after 48 hours. Discharge Plan Discharge Anticipated Discharge Date/Time: 07/03/22 08:33 Patient Disposition: Home, Self-Care Discharge Diagnosis: Asthma exacerbation Referrals: Jonna Carvalho MD [Primary Care Provider] - 1 Week Discharge Medications: New prednisone 10 mg tablet 40 mg PO DAILY Qty: 16 0RF Continued albuterol sulfate 90 mcg/actuation HFA aerosol inhaler 1 inh inhalation QID PRN (Reason: shortness of breath or wheezing) Qty: 8.5 0RF glipizide 2.5 mg tablet extended release 24hr 1 tab PO BIDAC albuterol sulfate 0.63 mg/3 mL solution for nebulization 0.63 mg inhalation QID PRN (Reason: shortness of breath or wheezing) Qty: 75 0RF Discharge Orders: Discharge Order (Routine); Ordered 07/03/22 Ordered By: Shante Upton Diet: Advance to usual diet Activity on Discharge: As tolerated Stand Alone Forms: Patient Portal Discharge page, Work/School Release Care Plan Goals: Complete resolution of symptoms Health Concerns: Asthma exacerbation Plan of Treatment: Follow-up with primary care provider as needed Take all medications as prescribed Assessment: See discharge summary
[2022-07-03] MEDS: Albuterol/Iprat 2.5/0.5MG 3 ML AMPUL.NEB INHALE ×2 (09:09→12:34)
[2022-07-03 09:10] VITALS: PULSE 88; RESP 17; O2SAT 95
--- NOTE | 2022-07-03 09:15 | MHC.CM.PN ---
PATIENT IS MEDICALLY CLEARED FOR DISCHARGE TODAY; DISCHARGE DISPOSITION IS HOME SELF-CARE. PATIENT WILL ARRANGE TRANSPORTATION.
[2022-07-03 11:13] VITALS: BP 144/67; PULSE 89; RESP 18; TEMP 36.8; O2SAT 90
[2022-07-03 11:24] LABS: Glucose, Whole Blood 384 mg/dL (60-115)
[2022-07-03 12:34] VITALS: PULSE 74; RESP 18; O2SAT 94
== END 2022-07-03 13:54 | disposition home or self-care (01) | DRG 144 ==
LOC: HO.ED 16:36 → HO.EDOVER 18:20 → HO.S3 06-30 13:56
PROVIDERS: Physician Assistant Medical; Admitting Provider Physician Assistant Medical; Emergency Provider Emergency Medicine; PCP Internal Medicine; Visit Provider Nurse Practitioner Acute Care
DX: J20.9 Acute bronchitis, unspecified (principal); E87.2 Acidosis; J45.21 Mild intermittent asthma with (acute) exacerbation; E11.65 Type 2 diabetes mellitus with hyperglycemia; T38.0X5A Adverse effect of glucocorticoids and synthetic analogues, initial encounter; B97.89 Other viral agents as the cause of diseases classified elsewhere; Z20.822 Contact with and (suspected) exposure to COVID-19; Q07.00 Arnold-Chiari syndrome without spina bifida or hydrocephalus; Z88.8 Allergy status to other drugs, medicaments and biological substances; Z79.84 Long term (current) use of oral hypoglycemic drugs; Z79.899 Other long term (current) drug therapy
CPT/HCPCS: 36415; 71045; 80048; 80053; 81001; 82947; 83605; 83735; 83880; 84484; 85025; 85610; 87040; 87633; 87635; 93005; 94640; 96361; 96365; 96375; 99218; 99285; J0456; J2920; J2930; J3475

== ENCOUNTER 2022-12-12 11:39 | Emergency (ER) | payer BC, SELFPAY ==
--- NOTE | ~2022-12-12 | US_ITS ---
EXAMINATION: US VENOUS ULTRASOUND WITH DOPPLER LOWER EXTREMITY, RIGHT CLINICAL INFORMATION: Right calf pain COMPARISON: January 01, 2022,, December 22, 2021, and February 07, 2021. TECHNIQUE: Ultrasound of the deep veins is performed from the hip to the calf with compression sonography and color and pulse Doppler assessment. Spectral analysis with color-flow imaging is performed. FINDINGS: There is normal venous compression and respiratory variation and augmented flow. The visualized common femoral vein, superficial femoral vein, profunda femoral vein, popliteal vein, and the trifurcation region shows no evidence of deep venous thrombosis. There is no significant popliteal fossa cyst. No popliteal artery aneurysm. The peroneal veins are not well evaluated. In the region of patient's pain in the right anterior proximal calf no abnormalities appreciated. US/US venous duplex LE RT IMPRESSION: No acute DVT demonstrated in the right lower extremity.
[2022-12-12 12:15] VITALS: BP 158/75; PULSE 88; RESP 16; TEMP 37.2; O2SAT 98; BMI 47.2
--- NOTE | 2022-12-12 12:15 | ED_ITS ---
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 Was previously on Eliquis temporarily each time, d/c since. She denies any dizziness, cough, trouble swallowing or breathing, dyspnea on exertion, orthopnea, shortness of breath, palpitations, paresthesias, chest pain, abdominal pain, recent travel on a long plane/train/car ride, recent falls or injuries or trauma to the right leg or any other symptoms complaints or concerns at this time. <TITUS Burton - Last Filed: 12/12/22 14:11> MD Complaint: extremity pain and extremity swelling <TITUS Burton - Last Filed: 12/12/22 14:11> Onset (ago): day(s) (Started today) <TITUS Burton Last Filed: 12/12/22 14:11> Pain Consistency: constant <TITUS Burton Last Filed: 12/12/22 14:11> Location: right and lower extremity <TITUS Burton Last Filed: 12/12/22 14:11> Quality: aching <TITUS Burton - Last Filed: 12/12/22 14:11> Radiation: none <TITUS Burton Last Filed: 12/12/22 14:11> Relieving factors: nothing <TITUS Burton Last Filed: 12/12/22 14:11> Exacerbating factors: palpation <TITUS Burton Last Filed: 12/12/22 14:11> Associated symptoms: denies other symptoms <TITUS Burton Last Filed: 12/12/22 14:11> Context: history of DVT <TITUS Burton Last Filed: 12/12/22 14:11> Related Data Home medications: Home Medications Medication Instructions Recorded Confirmed glipizide 2.5 mg tablet, extended 1 tab PO BIDAC 06/28/22 06/28/22 release 24 hr Previous Rx's Medication Instructions Recorded albuterol sulfate 90 mcg/actuation 1 inh inhalation QID PRN shortness 10/29/21 aerosol inhaler of breath or wheezing #8.5 grams albuterol sulfate 0.63 mg/3 mL 0.63 mg (3 mL) inhalation QID PRN 07/03/22 solution for nebulization shortness of breath or wheezing #75 mL prednisone 10 mg tablet 40 mg PO DAILY #16 tabs 07/03/22 naproxen 500 mg tablet 500 mg PO BID PRN pain #14 tabs 12/12/22 <TITUS Lucas Last Filed: 12/12/22 12:20> Allergies/Adverse reactions: Allergies Allergy/AdvReac Type Severity Reaction Status Date / Time Heparin Analogues Allergy Intermediate HIVES, Verified 12/12/22 12:22 [HEPARIN AGENTS] RASH, SEVERE BRUISING Heparin Combination Allergy Unknown Hives Uncoded 12/12/22 12:22 <TITUS Lucas Last Filed: 12/12/22 12:20> Review of Systems Review of Systems: Constitutional : No Weight loss, No Fever, No Chills, No Night Sweats, No Fatigue, No Malaise ENT/Mouth : No Hearing loss, No Ear Pain, No Nasal Congestion, No Sinus Pain, No Hoarseness, No sore throat, No Rhinorrhea, No Swallowing Difficulty Eyes: No Eye Pain, No Swelling, No Redness, No Foreign Body, No Discharge, No Vision Changes Cardiovascular : No Chest Pain, No SOB, No Dyspnea on Exertion, No Orthopnea, + rle Edema, No Palpitations Respiratory : No Cough, No Sputum, No Wheezing, No Smoke Exposure, No Dyspnea Gastrointestinal : No Nausea, No Vomiting, No Diarrhea, No Constipation, No abdominal Pain, No Hematochezia, No Melena Genitourinary : no irregular bleeding, No Dysuria, No Urinary Frequency, No Hematuria, No Urinary Incontinence, No Urgency, No Flank Pain, No Urinary Flow Changes, No Hesitancy Musculoskeletal : No joint pain, No Myalgias, No Joint Swelling Skin : No Skin Lesions, No rash Neuro : No Weakness, No Numbness, No Paresthesias, No Loss of Consciousness, No Dizziness, No Headache Psych : No Anxiety/Panic, No Depression, No SI/HI/AH/VH, No Social Issues, Heme/Lymph: No Bruising, No Bleeding,No Lymphadenopathy Endocrine : No Polyuria, No Polydipsia, No Temperature Intolerance <TITUS Burton - Last Filed: 12/12/22 14:11> Yes all other systems are reviewed and are negative <TITUS Burton - Last Filed: 12/12/22 14:11> PMFSH Past Medical History Attestation statement: The following information was validated with the patient. <TITUS Burton - Last Filed: 12/12/22 14:11> Source: old records reviewed and nursing notes reviewed <TITUS Burton - Last Filed: 12/12/22 14:11> Medical History: Medical History Asthma Chiari malformation type II COVID-19 Diabetes DVT (deep venous thrombosis) <TITUS Lucas - Last Filed: 12/12/22 12:20> Surgical History: Surgical History Hx of carpal tunnel repair Hx of knee surgery Hx of tonsillectomy <TITUS Lucas - Last Filed: 12/12/22 12:20> Social History Social History: Social History Household Members: Family Housing: House Do you presently have visiting nurse or other home services: No Alcohol intake: never Patient Tobacco Use Status: Never used Tobacco Advance Directives: Yes Advance Directives on File: Yes Advance Directives Date on File: 06/29/22 service: No Current occupational status: employed <TITUS Lucas - Last Filed: 12/12/22 12:20> Physical Exam Vital Signs: Vital Signs: Last Vital Signs Temp 98.9 F 12/12/22 12:15 Pulse 88 12/12/22 12:15 Resp 16 12/12/22 12:15 BP 158/75 H 12/12/22 12:15 Pulse Ox 98 12/12/22 12:15 O2 Del Method 12/12/22 12:15 BMI result Body Mass Index 47.2 <TITUS Lucas - Last Filed: 12/12/22 12:20> Vital Signs: Last Vital Signs Temp 98.9 F 12/12/22 12:15 Pulse 88 12/12/22 12:15 Resp 16 12/12/22 12:15 BP 158/75 H 12/12/22 12:15 Pulse Ox 98 12/12/22 12:15 O2 Del Method 12/12/22 12:15 BMI result Body Mass Index 47.2 Vital signs reviewed. Blood pressure 158/75. Pulse normal. Respiration normal. Oxygen normal. Temperature normal. <TITUS Burton - Last Filed: 12/12/22 14:11> Appearance: Alert. Oriented X3. No acute distress. Head: Normal external exam. Normocephalic. Atraumatic. Eyes: PERRLA. EOMI. Conjunctiva and sclera normal. Eyelids normal. ENT: EAC normal. TM's Normal. Pharynx normal. Uvula midline. Moist mucous membranes. No lesions/ulcerations or masses noted on the tongue. Normal voice. No trismus noted. No drooling noted. No muffled voice noted. Neck: Normal inspection. Neck supple. FROM. No adenopathy. Thyroid Normal. No meningeal signs. CVS: Normal heart rate and rhythm. Heart sound normal. Pulses normal throughout. No murmurs/rales/gallops. Respiratory: No respiratory distress. Painless inspiration. Breath sounds nor mal. No wheezes/rales/rhonchi noted. Chest nontender. No accessory muscle usage noted or decreased air movement noted. Abdomen: Soft and nontender. Back: Full range of motion noted. Nontender. Skin: Skin warm and dry. Normal skin color. Normal skin turgor. No rashes/lesions/lacerations noted. Extremities: Patient has right-sided calf tenderness although no lower extremity pitting edema to bilateral lower extremities. No left calf tenderness noted. Extremities exhibit normal range of motion and nontender. Neuro: Oriented X 3. No motor deficit. No sensory deficit. Reflexes normal. Normal steady gait. No focal neuro deficits noted. CN's II-XII intact bilaterally? Vascular: + radial pulses. Normal cap refill. 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 Was previously on Eliquis temporarily each time, d/c since. No SOB/CP VSS in triage. Ordered RLE US. Patient stable to return to waiting room until room in main ER becomes available. <TITUS Lucas - Last Filed: 12/12/22 12:20> Reevaluation(s) Reevaluation #1: Ultrasound negative for DVT. Therefore at this time will treat symptomatic and instructed follow-up with PCP. I discussed the results with the patient she understands agrees with the plan. <TITUS Burton - Last Filed: 12/12/22 14:11> Time: 14:10 <TITUS Burton - Last Filed: 12/12/22 14:11> Medical Decision Making Independent Interpretation I performed an independent interpretation of an: Ultrasound (Reviewed with patient and by myself) <TITUS Burton - Last Filed: 12/12/22 14:11> Radiology Impression Discussion of test interpretation with radiology: I have reviewed the radiologist's reading. <TITUS Burton - Last Filed: 12/12/22 14:11> Radiologist Impression: FINDINGS: There is normal venous compression and respiratory variation and augmented flow. The visualized common femoral vein, superficial femoral vein, profunda femoral vein, popliteal vein, and the trifurcation region shows no evidence of deep venous thrombosis. ? There is no significant popliteal fossa cyst. No popliteal artery aneurysm. The peroneal veins are not well evaluated. In the region of patient's pain in the right anterior proximal calf no abnormalities appreciated. US/US venous duplex LE RT IMPRESSION: No acute DVT demonstrated in the right lower extremity. <TITUS Burton - Last Filed: 12/12/22 14:11> Discharge Plan Discharge Clinical Impression: Leg pain, right <TITUS Lucas - Last Filed: 12/12/22 12:20> Patient Disposition: Home, Self-Care <TITUS Lucas - Last Filed: 12/12/22 12:20> Instructions: Leg Pain (ED) <TITUS Lucas - Last Filed: 12/12/22 12:20> Prescriptions: New naproxen 500 mg tablet 500 mg PO BID PRN (Reason: pain) Qty: 14 0RF No Action albuterol sulfate 90 mcg/actuation HFA aerosol inhaler 1 inh inhalation QID PRN (Reason: shortness of breath or wheezing) Qty: 8.5 0RF glipizide 2.5 mg tablet extended release 24hr 1 tab PO BIDAC prednisone 10 mg tablet 40 mg PO DAILY Qty: 16 0RF albuterol sulfate 0.63 mg/3 mL solution for nebulization 0.63 mg inhalation QID PRN (Reason: shortness of breath or wheezing) Qty: 75 0RF <TITUS Lucas - Last Filed: 12/12/22 12:20> Referrals: Jonna Carvalho MD [Primary Care Provider] - 2 days <TITUS Lucas - Last Filed: 12/12/22 12:20>
--- OUTSIDE RECORDS SUMMARY | 2022-12-12 13:47 | XMS_ITS | Continuity of Care Document ---
:1980 Author Organization [facility] Address [address] [place] [address]- Care Team Providers Name Role Phone Jonna Carvalho MD Primary Care Physician En[place] [facility] [place] Date(s): 06/11/22 - 07/11/22 [facility] [address] [address] Allergies, Adverse Reactions, Alerts Substance Reaction Severity Status heparin Active Immunizations Given and Recorded Vaccine Date Status Refusal Reason SARS-CoV-2 (COVID-19) mRNA-1273 vaccine 05/24/21 Recorded SARS-CoV-2 (COVID-19) mRNA-1273 vaccine 04/26/21 Recorded tetanus/diphtheria/pertussis, acel(Tdap) 04/29/18 Recorde d influenza virus vaccine, inactivated 07/24/14 Recorded Medications Aerochamber Spacer to be used with inahlers Aerochamber Spacer to be used with inahlers, See Instructions, # 1 each, Refills 0, Tot. Refills 0, Maintenance, use spacer with inhalers, 07/09/22 13:26:00 EDT, asthma j45.9, Compound, 149.6, cm, 07/09/22 12:43:00 EDT, Height Start Date: 07/09/22 Status: Orderedalbuterol 0.083% inhalation solution 3 mL = 2.5 mg, Inhalation, Every 6 hours, 0 Refills, Maintenance Start Date: 07/18/11 Status: OrderedBreo Ellipta 100 mcg-25 mcg/inh inhalation powder 1 puffs, Inhalation, Daily, # 1 each, 5 Refills, Maintenance, 07/09/22 13:24:00 EDT, Powder, [facility] #[id number], in place of Flovent, asthma j45.9, 1 puffs Inhalation Daily,x30 days, 149.6, cm, 07/09/22 12:43:00 EDT, Height Start Date: 07/09/22 Stop Date: 01/05/23 Status: OrderedFreestyle Lancets See Instructions, # 200 each, Refills 5, Tot. Refills 5, Maintenance, to check sugar once per day for type 2 diabetes, 04/30/22 12:54:00 EDT, Supply, 149.6, cm, 04/30/22 12:26:00 EDT, Height Start Date: 04/30/22 Stop Date: 10/27/22 Status: OrderedFreestyle Lite Monitor See Instructions, # 1 each, Maintenance, to check sugar once per day for type 2 diabetes, 04/30/22 12:54:00 EDT, Supply, 149.6, cm, 04/30/22 12:26:00 EDT, Height Start Date: 04/30/22 Status: OrderedFreestyle Lite Test Strips See Instructions, # 200 each, Maintenance, to check sugar once per day for type 2 diabetes, 04/30/2212:54:00 EDT, Supply, 149.6, cm, 04/30/22 12:26:00 EDT, Height Start Date: 04/30/22 Status: OrderedglipiZIDE 2.5 mg oral tablet, extended release 1 tablet = 2.5 mg, By Mouth, 2 times a day, with breakfast and dinner, # 60 tablet, 2 Refills, Maintenance, 04/30/22 12:51:00 EDT, [facility] #[id number], Partial fill upon patient request if the prescription is for a schedule II opioid drug., 14... Start Date: 04/30/22 Status: OrderedProAir HFA 90 mcg/inh inhalation aerosol with adapter 180 mcg, 2, puffs, Inhalation, 4 times a day, use with spacer chamber, # 8.5 Gm, Refills 5, Tot. Refills 5, Maintenance, 07/09/22 13:25:00 EDT, Inhaler, Route to Pharmacy Electronically, [id number], [facility] #[id number]... Start Date: 07/09/22 Stop Date: 01/05/23 Status: Ordered Problem List Condition Effective Dates Status Health Status Informant Body mass index 40+ - severely 04/21/18 Active obese(Confirmed) Carpal tunnel syndrome(Confirmed) 04/21/18 Active Chiari malformation type II(Confirmed) 04/21/18 Active Deep venous thrombosis(Confirmed) 01/04/20 Active Exacerbation of moderate persistent 01/05/19 Active asthma(Confirmed) History of operative procedure on 05/13/20 Active knee(Confirmed) Irritable bowel syndrome with 08/05/18 Active diarrhea(Confirmed) Moderate major depression, single 07/12/20 Active episode(Confirmed) Obstructive sleep apnea 04/21/18 Active syndrome(Confirmed) Severe obesity(Confirmed) Active Tubular adenoma of colon(Confirmed) 05/15/18 Active Type 2 diabetes mellitus(Confirmed) 04/29/18 Active Social History Social History Type Response Smoking Status Never smoker entered on: 02/25/17 Sex Care Team PersonnelName: Deven HERNANDEZ, Jonna Walker Address: [address] [place] [address] [address]
--- OUTSIDE RECORDS SUMMARY | 2022-12-12 13:47 | XMS_ITS | Continuity of Care Document ---
:1980 Author Organization [facility] Address [address] [place] [address]- Care Team Providers Name Role Phone Jonna Carvalho MD Primary Care Physician Encounter [facility] [place] [facility] [id number] Date(s): 08/28/22 - 09/27/[address] [address]- Attending Physician: AdmErika gomez Admitting Physician: Admtr, Ar8 Referring Physician: Admtr, Ar8 Allergies, Adverse Reactions, Alerts Substance Reaction Severity [...] 0 Refills, Maintenance Start Date: 07/18/11 Status: OrderedDiltiazem = 120 mg, 0 Refills, Maintenance, 08/22/22 6:29:00 EDT, Partial fill upon patient request if the prescription is for a schedule II opioid drug. Start Date: 08/22/22 Status: OrderedFreestyle Lancets See Instructions, # 200 [...] tablet, 2 Refills, Maintenance, 04/30/22 12:51:00 EDT, [facility] #[id number], Partial fill upon patient request if the prescription is for a schedule II opioid drug., 14... Start Date: 04/30/22 Status: OrderedpredniSONE 20 mg oral tablet See Instructions, tapering dose: take 3 pills daily for 3 days then 2 pills daily for 3 days then once daily for 3 days and stop., # 20 tablet, 0 Refills, Acute 08/26/23 11:55:00 EST, 08/24/22 11:53:00EDT, [facility] #[id number], Partial fill up... Start Date: 08/24/22 Stop Date: 08/26/23 Status: OrderedProAir HFA 90 mcg/inh inhalation aerosol with adapter 180 mcg, 2, puffs, Inhalation, 4 times a day, use with spacer chamber, # 8.5 Gm, Refills 5, Tot. Refills 5, Maintenance, 07/09/22 13:25:00 EDT, Inhaler, Route to Pharmacy Electronically, [id number], [id number] Start Date: 07/09/22 Stop Date: 01/05/23 Status: Ordered Problem List Condition Confirmation Course Effective Dates Status Health Stat us Informant Body mass index 40+ Confirmed 04/21/18 Active - severely obese Carpal tunnel Confirmed 04/21/18 Active syndrome Chiari malformation Confirmed 04/21/18 Active type II Deep venous Confirmed 01/04/20 Active thrombosis Exacerbation of Confirmed 01/05/19 Active moderate persistent asthma History of Confirmed 05/13/20 Active operative procedure on knee Irritable bowel Confirmed 08/05/18 Active syndrome with diarrhea Moderate major Confirmed 07/12/20 Active depression, single episode Obstructive sleep Confirmed 04/21/18 Active apnea syndrome Severe obesity Confirmed Active Tubular adenoma of Confirmed 05/15/18 Active colon Type 2 diabetes Confirmed 04/29/18 Active mellitus Social History Social History Type Response Smoking Status Never smoker entered on: 02/25/17 Sex Patient Care team information Care Team PersonnelName: Deven HERNANDEZ, Jonna Walker Position: [facility] Primary Care Physician Member Role: PCP Address: Address: [address] [place] [address] [place] [address]- Care Team Related PersonsName: CRISTY LAZARO Address: home [address] [place] [address] Name: ERICA LAZARO Address: home [address] [place] [address] Name: ADRIENNE LAZARO Address: [address] [place] [address] Name: NEETA WALLS Address: [address] [place] [address]
--- OUTSIDE RECORDS SUMMARY | 2022-12-12 13:47 | XMS_ITS | Continuity of Care Document ---
:1980 Author Organization [facility] Address [address] [place] [address]- Care Team Providers Name Role Phone Jonna Carvalho MD Primary Care Physician En[place] [facility] [place] [place]s): 07/24/22 - 07/31/22 [facility] [address] [address] Encounter Diagnosis Abnormal stress electrocardiogram test (Discharge Diagnosis) - 07/24/22 Diabetes (Discharge Diagnosis) - 07/24/22 Exertional chest pain (Discharge Diagnosis) - 07/24/22 Attending Physician: Bharath Kingston MD Admitting Physician: Bharath Kingston MD Referring Physician: Jonna Carvalho MD Allergies, Adverse Reactions, Alerts Substance Reaction Severity [...] 6 hours, 0 Refills, Maintenance Start Date: 9/28/11 Status: OrderedBreo Ellipta 100 mcg-25 mcg/inh inhalation powder 1 puffs, Inhalation, Daily, j45.9, # 1 each, 6 Refills, Maintenance, 01/05/23 13:24:00 EDT, Powder, [facility] #[id number], in place of Flovent, asthma j45.9, 1 puffs Inhalation Daily,Instr:j45.9,149.6, cm, 07/09/22 12:43:00 EDT, Height Start Date: 01/05/23 Status: OrderedBreo Ellipta 100 mcg-25 mcg/inh inhalation powder 1 puffs, Inhalation, Daily, for 30 days, # 1 each, 5 Refills, Hard Stop 01/05/23 13:24:00 EDT, 07/09/22 13:24:00 EDT, Powder, [facility] #[id number], in place of Flovent, asthma j45.9, 149.6, cm, 07/09/22 12:43:00 EDT, Height Start Date: 07/09/22 Stop Date: 01/05/23 Status: OrdereddilTIAZem 120 mg/24 hours oral tablet, extended release See Instructions, 1 tablet By Mouth daily, starting [address] scan of heart and includingday of test., # 5 tablet, 0 Refills, Maintenance, 07/24/22 10:16:00 EDT, [facility] #[id number], Partial fill upon patient request if the prescri... Start Date: 07/24/22 Status: OrderedFreestyle Lancets See Instructions, # 200 [...] tablet, 2 Refills, Maintenance, 04/30/22 12:51:00 EDT, [facility] #[id number], Partial fill upon patient request if the prescription is for a schedule II opioid drug., 14... Start Date: 04/30/22 Status: OrderedProAir HFA 90 mcg/inh inhalation aerosol with adapter 180 mcg, 2, puffs, Inhalation, 4 times a day, use with spacer chamber, # 8.5 Gm, Refills 5, Tot. Refills 5, Maintenance, 07/09/22 13:25:00 EDT, Inhaler, Route to Pharmacy Electronically, [id number], [facility] #[id number]... Start Date: 07/09/22 Stop Date: [...] Type 2 diabetes Confirmed 04/29/18 Active mellitus Diagnosis Diagnosis Type Effective Health Clinical Informant Dates Status Service Abnormal stress Discharge 07/24/22 electrocardiogram test Diagnosis Diabetes Discharge 07/24/22 Diagnosis Exertional chest pain Discharge 07/24/22 Diagnosis Vital Signs Most recent to oldest [Reference Range]: 1 Height 149.60 cm (07/24/22 9:33 AM) Weight 106.1 kg (07/24/22 9:33 AM) Oxygen Saturation [94-100 %] 100 % (07/24/22 9:33 AM) Pulse Rate [55-90 bpm] 88 bpm (07/24/22 9:33 AM) Body Mass Index [18.5-24.99 kg/m2] 47.41 kg/m2 *>HHI* (07/24/22 9:33 AM) Blood Pressure [90-138/55-84 mm Hg] 138/80 mm Hg (07/24/22 9:33 AM) Blood pressure sites Arm, left (07/24/22 9:33 AM) Weight Obtained Via Standing scale (07/24/22 9:33 AM) Social History Social History Type Response Smoking Status Never smoker entered on: 02/25/17 Sex Patient Care team information PersonnelName: Deven HERNANDEZ, Jonna Walker Address: Address: [address] [place] [address] Primary [place], [place] [address]
--- OUTSIDE RECORDS SUMMARY | 2022-12-12 13:48 | XMS_ITS | Continuity of Care Document ---
:1980 Author Organization [facility] Address [address] [place] [id number]- Care Team Providers Name Role Phone Jonna Carvalho MD Primary Care Physician [place] [facility] [place]09[place]22 - 08/08/22 [facility] [address] [place] [id number] Attending Physician: Admtr, Ar8 Admitting Physician: Admtr, Ar8 Referring Physician: Admtr, [...] 6 Refills, Maintenance, 01/05/23 13:24:00 EDT, Powder, [email or web address] #[id number], in place of Flovent, asthma j45.9, 1 puffs Inhalation Daily,Instr:j45.9,149.6, cm, 07/09/22 12:43:00 EDT, Height Start Date: 01/05/23 Status: OrderedBreo Ellipta 100 mcg-25 mcg/inh inhalation powder 1 puffs, Inhalation, Daily, for 30 days, # 1 each, 5 Refills, Hard Stop 01/05/23 13:24:00 EDT, 07/09/22 13:24:00 EDT, Powder, [email or web address] #[id number], in place of Flovent, asthma j45.9, 149.6, cm, 07/09/22 12:43:00 EDT, Height Start Date: 07/09/22 Stop Date: 01/05/23 Status: OrdereddilTIAZem 120 mg/24 hours oral tablet, extended release See Instructions, 1 tablet By Mouth daily, starting [address] scan of heart and includingday of test., # 5 tablet, 0 Refills, Maintenance, 07/24/22 10:16:00 EDT, [facility] #[id number], Partial fill upon patient request if the [...] tablet, 2 Refills, Maintenance, 04/30/22 12:51:00 EDT, [email or web address] #[id number], Partial fill upon patient request if the prescription is for a schedule II opioid drug., 14... Start Date: 04/30/22 Status: OrderedProAir HFA 90 mcg/inh inhalation aerosol with adapter 180 mcg, 2, puffs, Inhalation, 4 times a day, use with spacer chamber, # 8.5 Gm, Refills 5, Tot. Refills 5, Maintenance, 07/09/22 13:25:00 EDT, Inhaler, Route to Pharmacy Electronically, [id number], [facility] #[id number]... Start Date: 07/09/22 Stop Date: 01/05/23 [...] PersonnelName: Deven HERNANDEZ, Jonna Walker Address: Address: [address] [place] [address]
--- OUTSIDE RECORDS SUMMARY | 2022-12-12 13:48 | XMS_ITS | Continuity of Care Document ---
:1980 Author Organization [facility] Address [address] [place] [address]- Care Team Providers Name Role Phone Jonna Carvalho MD Primary Care Physician Encounter [facility] [place] Date(s): 07/24/22 - 08/23/[address] [address]- Attending Physician: AdmErika gomez Admitting Physician: Admtr, [...] tablet, 2 Refills, Maintenance, 04/30/22 12:51:00 EDT, [facility] #[id number], Partial fill upon patient request if the prescription is for a schedule II opioid drug., 14... Start Date: 04/30/22 Status: OrderedProAir HFA 90 mcg/inh inhalation aerosol with adapter 180 mcg, 2, puffs, Inhalation, 4 times a day, use with spacer chamber, # 8.5 Gm, Refills 5, Tot. Refills 5, Maintenance, 07/09/22 13:25:00 EDT, Inhaler, Route to Pharmacy Electronically, [id number], [facility] #[id number]... Start Date: 07/09/22 Stop Date: [...] PersonnelName: Deven HERNANDEZ, Jonna Walker Address: Address: [facility] [place], [place] [address]
--- OUTSIDE RECORDS SUMMARY | 2022-12-12 13:48 | XMS_ITS | Continuity of Care Document ---
:1980 Author Organization [facility] n Address [address] [place] [address]- Care Team Providers Name Role Phone Jonna Carvalho MD [id number]/28/[facility] - 09/04/22 [place] [address]- Attending Physician: Bharath Kingston MD Admitting Physician: [...] tablet, 2 Refills, Maintenance, 04/30/22 12:51:00 EDT, [facility] #[id number], Partial fill upon patient request if the prescription is for a schedule II opioid drug., 14... Start Date: 04/30/22 Status: OrderedpredniSONE 20 mg oral tablet See Instructions, tapering dose: take 3 pills daily for 3 days then 2 pills daily for 3 days then once daily for 3 days and stop., # 20 tablet, 0 Refills, Acute 08/26/23 11:55:00 EST, 08/24/22 11:53:00EDT, [facility] #[id number], Partial fill up... Start Date: 08/24/22 Stop Date: 08/26/23 Status: OrderedProAir HFA 90 mcg/inh inhalation aerosol with adapter 180 mcg, 2, puffs, Inhalation, 4 times a day, use with spacer chamber, # 8.5 Gm, Refills 5, Tot. Refills 5, Maintenance, 07/09/22 13:25:00 EDT, Inhaler, Route to Pharmacy Electronically, [id number], [facility] #[id number]... Start Date: 07/09/22 Stop [...] Type 2 diabetes Confirmed 04/29/18 Active mellitus Vital Signs Most recent to oldest [Reference Range]: 1 Height 149.60 cm (08/28/22 8:53 AM) Weight 106.1 kg (08/28/22 8:53 AM) Oxygen Saturation [94-100 %] 99 % (08/28/22 8:53 AM) Pulse Rate [55-90 bpm] 92 bpm *H* (08/28/22 8:53 AM) Body Mass Index [18.5-24.99 kg/m2] 47.41 kg/m2 *>HHI* (08/28/22 8:53 AM) Blood Pressure [90-138/55-84 mm Hg] 142/74 mm Hg *H* (08/28/22 8:53 AM) Mode of Delivery (Oxygen) Room air (08/28/22 8:53 AM) Blood pressure sites Arm, left (08/28/22 8:53 AM) Weight Obtained Via Standing scale (08/28/22 8:53 AM) Social History Social History Type Response Smoking Status Never smoker entered on: 02/25/17 Sex Cardiology Outpatient Note Bharath Kingston MD: PERFORM Event Display: Cardiology Note Office Authored Date: Patient: ??IVETH, BAYRON ? Age:??42 Years?Sex:??Female?:??1980?? Patient Hx Provider Clinical Summary 42-year-old woman with a history of asthma, diabetes, poorly controlled hemoglobin A1c, chronic elevation in liver enzymes presumably secondary to hepatic steatosis, obesity who is seen in follow-up for cardiac work-up in the setting of some atypical chest discomfort she was having earlier this fall in summer.?? Stress testing showed reduced functional capacity with chronotropic incompetence and some nonlimiting chest discomfort on the treadmill, however she had no marcial ischemic changes by ECG. ?? I did have her proceed with a CT coronary angiogram since??our initial visit, which fortunately shows no major obstructive CAD.?? There is a question of possible mild plaque in her distal RCA, which the radiologist speculates may be artifact.?? Otherwise her left main, LAD and left circumflex look clean. ?? She reports feeling better, and is reassured by the CT study.?? She is interested in engaging in anexercise program. ?? Impression and plan: No obstructive CAD to explain her prior symptoms.?? She actually feels better now.?? I feel that itis safe for her to proceed with an exercise program. ?? In terms of cardiac risk going forward, as a diabetic she would probably benefit from going on moderate intensity statin even though her LDL and total cholesterol are under good control.?? However,I do see that she has some baseline transaminitis.?? I presume this is from hepatic steatosis (as seen on a prior CT abdomen), but I am not certain.?? Recommend that she have a conversation with Dr. Carvalho about whether further hepatic work-up is indicated, and to re-address indications for statin.??Return to cardiology as needed. Physical Exam Vitals & Measurements SD:??92?? BP:??142/74?? SpO2:??99%?? HT:??149.60??cm?? WT:??106.1??kg?? BMI:??47.41?? Weight lb/oz: 233 lb 15 oz GENERAL: ??Alert and oriented x3, no acute distress. HEENT: Mucous membranes pink and moist. ?? NECK: ??No JVD?? LUNGS: Clear to auscultation bilaterally. ??No crackles, wheezing, rhonchi. ?? HEART: ??Regular rate and rhythm, normal S1, S2. ??No murmurs, rubs, or gallops.?? ABDOMEN: Soft, nontender, nondistended.??Obese EXTREMITIES: ??No pitting edema, cyanosis, clubbing. ?? PULSES: 2+ radials SKIN: Warm and well perfused. ?? NEURO: ??Oriented to person, time, and place, following commands, and moving all extremities.?? MUSCULOSKELETAL: ??Negative.?? Allergies heparin Home Medications Aerochamber Spacer to be used with inahlers, See Instructions, use spacer with inhalers albuterol 0.083% inhalation solution, 2.5 mg= 3 mL, Inhalation, Every 6 hours Diltiazem, 120 mg Freestyle Lancets, See Instructions, 5 refills, to check sugar once per day for type 2 diabetes Freestyle Lite Monitor, See Instructions, to check sugar once per day for type 2 diabetes Freestyle Lite Test Strips, See Instructions, to check sugar once per day for type 2 diabetes glipiZIDE 2.5 mg oral tablet, extended release, 2.5 mg= 1 tablet, By Mouth, 2 times a day, 2 refills, with breakfast and dinner predniSONE 20 mg oral tablet, See Instructions, tapering dose: take 3 pills daily for 3 days then 2pills daily for 3 days then once daily for 3 days and stop. ProAir HFA 90 mcg/inh inhalation aerosol with adapter, 180 mcg= 2 puffs, Inhalation, 4 times a day,5 refills, use with spacer chamber Lab Results Cardiology Labs WBC: 7.5 k/mm3 (04/24/22) RBC: 4.57 m/mm3 (04/24/22) Hgb: 14.1 Gm/dL (04/24/22) Hct: 41.8 % (04/24/22) MCV: 91.5 femtoliters (04/24/22) MCH: 30.9 pg (04/24/22) MCHC: 33.7 g/dL (04/24/22) Platelet Count: 264 k/mm3 (04/24/22) RDW-SD: 40.9 femtoliters (04/24/22) Nucleated RBC (Automated): 0 #/100 WBC'S (04/24/22) Abs. Neut: 5.8 k/mm3 (04/12/22) Abs. Lymph:??3.3 k/mm3??High (04/12/22) Abs. [place]: 0.9 k/mm3 (04/12/22) Abs. Eo: 0.4 k/mm3 (04/12/22) Abs. Baso: 0 k/mm3 (04/12/22) Neut %: 55.8 % (04/12/22) [place] %: 8.2 % (04/12/22) Eos %: 3.5 % (04/12/22) Baso %: 0.4 % (04/12/22) Imm Gran: 0.4 % (04/12/22) Abs. Imm Gran: 0 k/mm3 (04/12/22) Sodium: 138 mmol/L (04/24/22) Potassium: 5.1 mmol/L (04/24/22) Chloride: 102 mmol/L (04/24/22) Bicarbonate Level: 26 mmol/L (04/24/22) Glucose Level:??257 mg/dL??High (04/24/22) Hemoglobin A1C (Monitoring):??9.2 %??High (04/24/22) BUN: 8 mg/dL (08/20/22) Creatinine-Blood:??0.4 mg/dL??Low (08/20/22) Calcium: 9.4 mg/dL (04/24/22) Troponin T Quant: <0.01 (04/12/22) Nt-Probnp: 58 pg/mL (04/12/22) Cholesterol: 140 mg/dL (04/24/22) Triglycerides: 61 mg/dL (04/24/22) HDL Cholesterol: 48 mg/dL (04/24/22) LDL Cholesterol: 80 mg/dL (04/24/22) Non HDL Cholesterol: 92 mg/dL (04/24/22) Diagnostic Impression CT CT Heart/Coronary/3D/Morph ?? 10:29:57 IMPRESSION: ?? 1. Minimal noncalcified plaque distal left main coronary produces no measurable stenosis. 2. LAD and circumflex appear normal. 3. Heterogeneous segment of attenuation in the distal RCA may be artifactual or due to heterogeneous plaque, but does not appear obstructive. 4. Right dominant system. ?? WSN: [id number] ? Ordering Physician: Bharath Kingston ?? Signed By: Noah Manning MD ECG ECG 12-Lead ?? 18:37:53 Ventricular Rate: 75 BPM Atrial Rate: 75 BPM P-R Interval: 142 ms QRS Duration: 78 ms Q-T Interval: 376 ms QTC Calculation(Bazett): 419 ms P [place]: 17 degrees R [place]: 7 degrees T [place]: 29 degrees Normal sinus rhythm Normal ECG When compared with ECG of 22-APR-2007 09:07, No significant change was found Confirmed by DARIAN BOLTON ([id number]) on 04/13/2022 3:22:05 PM ?? [place]once: DARIAN BOLTON ?? Signed By: Darian Bolton MD Problem List/Past Medical History Ongoing Body mass index 40+ - severely obese Carpal tunnel syndrome Chiari malformation type II Deep venous thrombosis Exacerbation of moderate persistent asthma History of operative procedure on knee Irritable bowel syndrome with diarrhea Moderate major depression, single episode Obstructive sleep apnea syndrome Severe obesity Tubular adenoma of colon Type 2 diabetes mellitus Historical No qualifying data Procedure/Surgical History Knee arthroplasty Carpal tunnel release Follow-Up Appointments Added Follow Up ?Time Frame ?Comments Bharath Kingston?Only if Needed. Social History Alcohol Use: Never., 02/25/2017 Electronic Cigarette/Vaping Electronic Cigarette Use: Never., 04/24/2022 Employment/School Status: Employed. 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 Lives with: Children., 04/24/2022 Nutrition/Health Diet: Regular., 04/24/2022 Sexual Sexually involved in last 6 months: Yes., 04/24/2022 Substance Abuse Use: Never., 02/25/2017 Tobacco Never smoker, 02/25/2017 Family History Mother: Asthma; Diabetes mellitus Father: Asthma; Diabetes mellitus Other: Cancer; Heart attack Note Vesta Rodríguez: PERFORM, SIGN, VERIFY Event Display: Patient Education/Instruction Authored Date: [id number] [facility] *[facility]mp Hrt Vas Off Clinical Summary Name BAYRON LAZARO Age 42 Years 1980 PCP Jonna Carvalho MD PCP Visit Date 08/28/2022 08:38:00 Additional Instructions: Scheduled Appointments?? Future Appointments ?*[facility] [address]??[place],??[place],??[address] ?Phone:??--?Fax:??-- ?Appt. Date:??10/25/2022?8:00 AM ?Scheduled Provider:??Jonna Carvalho MD Follow-Up Instructions ?? With: Address: When: Bharath Kingston , only if needed Diagnosis Medications: Please continue your medications until treatment is completed or stopped by your provider. Discuss any questions related to medications with your provider. Medications to Continue with No Changes These medications were not printed or sent to your pharmacy Albuterol (albuterol 0.083% inhalation solution) 3 Milliliter Inhalation every 6 hours. Next Dose: Albuterol (ProAir HFA 90 mcg/inh inhalation aerosol with adapter) 2 puff(s) Inhalation 4 times a dayfor 30 Days. use with spacer chamber. Refills: 5. Next Dose: Diltiazem 120 Milligram. Next Dose: Durable Medical Equipment (Aerochamber Spacer to be used with inahlers) use spacer with inhalers. Refills: 0. Next Dose: Durable Medical Equipment (Freestyle Lancets) to check sugar once per day for type 2 diabetes. Refills: 5. Next Dose: Durable Medical Equipment (Freestyle Lite Monitor) to check sugar once per day for type 2 diabetes. Refills: 0. Next Dose: Durable Medical Equipment (Freestyle Lite Test Strips) to check sugar once per day for type 2 diabetes. Refills: 0. Next Dose: GlipiZIDE (glipiZIDE 2.5 mg oral tablet, extended release) 1 tab(s) Oral twice a day. with breakfastand dinner. Refills: 2. Next Dose: PredniSONE (predniSONE 20 mg oral tablet) tapering dose: take 3 pills daily for 3 days then 2 pills daily for 3 days then once daily for 3 days and stop.. Refills: 0. Next Dose: Allergy Info:?? heparin Medications Given This Visit Future Orders ?No future orders Vital Signs Height 149.60 cm Weight 106.1 kg BMI 47.41 kg/m2 Blood Pressure 142 mm Hg/74 mm Hg Temperature Pulse Rate 92 bpm Respiratory Rate 02 Sat Mode of Delivery 99 %/Room air You can now view a summary of your hospital visit from the comfort of your home through a free online portal called Emair. Emair is a website that allows you to securely view yourmedical information including discharge summary, medications and follow-up visits. ??You can also send a secure electronic message to your doctor???s office to request appointments, renew medications or just ask a question. You can enroll at [email or web address] or register during your next office visit. Disclaimer:?? The information provided is of a general nature and is intended to be used in conjunction with the recommendations and advice of your health care practitioner. ??Every effort has been made to ensure that the information provided is accurate and complete at the time it is provided to you however, as your needs change, or, as new ??information becomes available, different or additional instructions may be required. If you have questions, please consult with your primary care provider or pharmacist, as appropriate.??This information is not intended to serve as substitution for assessment and evaluation by a qualified health care provider. If you do not have a primary care provider, you may find a [facility] provider by calling [facility] [employer] Link at [phone]. For information about the plan of care including goals and instructions for your diagnosis, please see the patient education orders section of this document. Patient Education Materials?? The content of this educational material or handout may have been modified, supplemented, or adaptedfrom its original content and format to support your individualized medical care. Patient Care team information Care Team PersonnelName: Deven HERNANDEZ, Jonna Walker Position: S Primary Care Physician Member Role: PCP Address: Address: [facility] [place] [id number]- [place] Care Team Related PersonsName: CRISTY LAZARO Address: home [address], [place] Name: ERICA LAZARO Address: home [address], [place] Name: ADRIENNE LAZARO Address: home [address], [place] Name: NEETA WALLS Address: [address] [place] [address]
--- OUTSIDE RECORDS SUMMARY | 2022-12-12 13:48 | XMS_ITS | Continuity of Care Document ---
:1980 Author Organization [facility] Address [address] [place] [address]- Care Team Providers Name Role Phone Jonna Carvalho MD Primary Care Physician [place] [facility] [place] 07[place] [facility] [address] [place] [address] Attending Physician: Carlos Walters MD Referring Physician: Jonna Carvalho MD Allergies, [...] 6 Refills, Maintenance, 01/05/23 13:24:00 EDT, Powder, [facility] #[id number], in place of Flovent, asthma j45.9, 1 puffs Inhalation Daily,Instr:j45.9,149.6, cm, 07/09/22 12:43:00 EDT, Height Start Date: 01/05/23 Status: OrderedBreo Ellipta 100 mcg-25 mcg/inh inhalation powder 1 puffs, Inhalation, Daily, for 30 days, # 1 each, 5 Refills, Hard Stop 01/05/23 13:24:00 EDT, 07/09/22 13:24:00 EDT, Powder, [facility] #[id number], in place of Flovent, asthma j45.9, 149.6, [...] tablet, 2 Refills, Maintenance, 04/30/22 12:51:00 EDT, [facility] #[id number], Partial fill upon patient request if the prescription is for a schedule II opioid drug., 14... Start Date: 04/30/22 Status: OrderedProAir HFA 90 mcg/inh inhalation aerosol with adapter 180 mcg, 2, puffs, Inhalation, 4 times a day, use with spacer chamber, # 8.5 Gm, Refills 5, Tot. Refills 5, Maintenance, 07/09/22 13:25:00 EDT, Inhaler, Route to Pharmacy Electronically, [id number], [facility] #[id number]... Start Date: 07/09/22 Stop Date: [...] Active Type 2 diabetes mellitus(Confirmed) 04/29/18 Active Vital Signs Most recent to oldest [Reference Range]: 1 Height 149.60 cm (07/09/22 12:43 PM) Weight 104.4 kg (07/09/22 12:43 PM) Oxygen Saturation [94-100 %] 96 % (07/09/22 12:43 PM) Pulse Rate [55-90 bpm] 93 bpm *H* (07/09/22 12:43 PM) Body Mass Index [18.5-24.99] 46.65 *>HHI* (07/09/22 12:43 PM) Blood Pressure [90-138/55-84 mm Hg] 132/65 mm Hg (07/09/22 12:43 PM) Blood pressure sites Arm, left (07/09/22 12:43 PM) Social History Social History Type Response Smoking Status Never smoker entered on: 02/25/17 Sex Care Team PersonnelName: Deven HERNANDEZ, Jonna Walker Address: [address] [place] [address] Primary [place], [place] [address]
--- OUTSIDE RECORDS SUMMARY | 2022-12-12 13:48 | XMS_ITS | Continuity of Care Document ---
:1980 Author Organization [facility] Address [address] [place] [address]- Care Team Providers Name Role Phone Jonna Carvalho MD Primary Care Physician [place] [facility] [place] Date(s): 04/12/22 - 04/13/[address] [address]- Encounter Diagnosis Chest pain (Final) - 04/13/22 Discharge Disposition: A-D/C Home Referring Physician: Not on Staff, Referring MD Allergies, Adverse Reactions, Alerts Substance Reaction Severity Status heparin Active Medications Advair Diskus 500 mcg-50 mcg inhalation powder 1 puffs, Inhalation, 2 times a day, 0 Refills, Maintenance Start Date: 07/18/11 Status: Orderedalbuterol 0.083% inhalation solution 3 mL = 2.5 mg, Inhalation, Every 6 hours, 0 Refills, Maintenance Start Date: 07/18/11 Status: OrderedFlagyl 500 mg oral tablet 1 tablet = 500 mg, By Mouth, Every 12 hours, 0 Refills, Maintenance, 03/15/17 11:07:58 Start Date: 03/15/17 Stop Date: 03/22/17 Status: OrderedMetroGel-Vaginal 0.75% vaginal gel with applicator 1 application, Vaginally, Daily at bedtime, # 70 Gm, 0 Refills, Soft Stop, 02/26/17 7:51:01, Gel Start Date: 02/26/17 Stop Date: 03/03/17 Status: Orderedprednisone 1 mg oral tablet 1 tablet = 1 mg, By Mouth, Daily, 0 Refills, Maintenance Start Date: 11/15/11 Status: OrderedProAir HFA 90 mcg/inh inhalation aerosol with adapter 2 puffs, Inhalation, 4 times a day, 0 Refills, Maintenance Start Date: 07/18/11 Status: OrderedSingulair 10 mg oral tablet 1 tablet = 10 mg, By Mouth, Daily before dinner, 0 Refills, Maintenance Start Date: 07/18/11 Status: OrderedZofran 4 mg oral tablet 1 tablet = 4 mg, By Mouth, Every 8 hours, PRN Nausea & Vomiting, # 15 tablet, 0 Refills, Maintenance, 03/30/18 18:01:05 EDT, Tablet Start Date: 03/30/18 Stop Date: 04/04/18 Status: Ordered Results Radiology Reports Exam Date Time Procedure Performing Provider Status 04/12/22 8:14 PM Chest 2 Views Frontal and Lat Lindsey Mcadams; Auth (Verified) Notes:(Chest 2 Views Frontal and Lat) Reason For Exam: Chest Pain;Other:RESULT: Chest 2 Views Frontal and Lat Chest 2 Views Frontal and Lat Hx of Present Illness: describing 9 10 chest pain midsternal, describes intermittent combo sharp pain and pressure, pt states pain gets more comfortable while lying, worked up at [place] recently for same complaint with no acute findings; Reason: Other:; Chest Pain; Clinical Question(s): Other: COMPARISON: None. FINDINGS: LINES AND TUBES: None. LUNGS AND PLEURA: Clear lungs. Normal pulmonary vascularity. No pleural effusion. No pneumothorax. HEART, MEDIASTINUM AND ALIX: Heart is normal in size. Normal upper mediastinal and hilar contour. BONES AND SOFT TISSUES: No acute abnormality. IMPRESSION: No acute abnormality. WSN: [id number] Ordering Physician: Delon Xiong Dictated By: Aric Washington MD Dictated Date/Time: 04/12/22 8:17 pm Reviewed By: Aric Washington MD Signed By: Aric Washington MD Signed Date/Time: 04/12/22 8:17 pm Transcribed By: JOHNSON Transcribed Date/Time: 04/12/22 8:17 pm Vital Signs Most recent to oldest 1 2 3 [Reference Range]: Oxygen Saturation [94-100 %] 96 % 98 % 99 % (04/13/22 2:08 AM) (04/12/22 10:35 PM) (04/12/22 8: 37 PM) Pulse Rate [55-90 bpm] 72 bpm 76 bpm 64 bpm (04/13/22 2:08 AM) (04/12/22 10:35 PM) (04/12/22 8: 37 PM) Blood Pressure [90-138/55-84 134/80 mm Hg 136/68 mm Hg 135 /77 mm Hg mm Hg] (04/13/22 2:08 AM) (04/12/22 10:35 PM) (04/12/22 8: 37 PM) Respiratory Rate [16-30 16 br/min 16 br/min 18 br/mi n br/min] (04/13/22 2:08 AM) (04/12/22 10:35 PM) (04/12/22 8: 37 PM) Temperature [96.8-100.4 DegF] 98.8 DegF 98.2 DegF 98 .3 DegF (04/13/22 2:08 AM) (04/12/22 8:37 PM) (04/12/22 6:4 2 PM) Mode of Delivery (Oxygen) Room air Room air Room a ir (04/12/22 10:35 PM) (04/12/22 8:37 PM) (04/12/22 6: 42 PM) Blood pressure sites Arm, right Arm, right (04/12/22 8:37 PM) (04/12/22 6:42 PM) Temperature Route Oral Oral Oral (04/13/22 2:08 AM) (04/12/22 8:37 PM) (04/12/22 6:4 2 PM) Social History Social History Type Response Smoking Status Never smoker entered on: 02/25/17 Sex
== END 2022-12-12 14:16 | disposition home or self-care (01) ==
PROVIDERS: Emergency Provider Emergency Medicine; PCP Internal Medicine
DX: M79.604 Pain in right leg (principal); R60.0 Localized edema
CPT/HCPCS: 93971; 99282; 99284

== ENCOUNTER 2022-12-24 07:42 | Emergency (ER) | payer BC, SELFPAY ==
--- NOTE | ~2022-12-24 | XR_ITS ---
EXAMINATION: XR CHEST CLINICAL INFORMATION: Shortness of breath COMPARISON: June 2022. TECHNIQUE: 2 views of the chest were obtained. FINDINGS: No significant abnormality is noted involving the heart, lungs, mediastinum, bony thorax or soft tissues. There is multilevel thoracic spondylitic change. XR/XR chest 2V IMPRESSION: Unremarkable examination.
[2022-12-24 07:44] VITALS: BP 139/80; PULSE 96; RESP 20; TEMP 36.7; O2SAT 95; BMI 47.2
--- NOTE | 2022-12-24 09:52 | ED_ITS ---
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 Patient reports that her asthma is often times exacerbated with her travels, and reports she just returned from a work trip. Patient reports that prior to her arrival she administered an albuterol updraft, which prevented her with minimal relief. She reports that she has been admitted multiple times in the past for her asthma last admission was for 7 days in August. 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 Problem patient denies any chest pain, palpitations, pain or swelling in her lower extremities or fevers, chills. No other complaints or concerns at this time. MD complaint: asthma attack Onset (ago): week(s) Severity: moderate Context: none known Associated symptoms: none Treatments Prior to Arrival: inhaled bronchodilator Related Data Home Medications Medication Instructions Recorded Confirmed glipizide 2.5 mg tablet, extended 1 tab PO BIDAC 06/28/22 06/28/22 release 24 hr Previous Rx's Medication Instructions Recorded albuterol sulfate 90 mcg/actuation 1 inh inhalation QID PRN shortness 10/29/21 aerosol inhaler of breath or wheezing #8.5 grams albuterol sulfate 0.63 mg/3 mL 0.63 mg (3 mL) inhalation QID PRN 07/03/22 solution for nebulization shortness of breath or wheezing #75 mL prednisone 10 mg tablet 40 mg PO DAILY #16 tabs 07/03/22 naproxen 500 mg tablet 500 mg PO BID PRN pain #14 tabs 12/12/22 prednisone 20 mg tablet 40 mg PO DAILY #8 tabs 12/24/22 Allergies Allergy/AdvReac Type Severity Reaction Status Date / Time Heparin Analogues Allergy Intermediate HIVES, Verified 12/12/22 12:22 [HEPARIN AGENTS] RASH, SEVERE BRUISING Heparin Combination Allergy Unknown Hives Uncoded 12/12/22 12:22 Review of Systems Review of Systems: Yes all other systems are reviewed and are negative Constitutional: Constitutional: Reports no additional constitutional complaints, Denies body ache(s), Denies chills, Denies fever(s), Denies headache(s) and Denies weakness Eyes: Eyes: Reports no additional eye complaints and Denies change in vision ENT: Reports system reviewed and no additional complaints, except as documented, Denies dizziness, Denies headache(s), Denies nasal congestion, Denies nasal discharge and Denies neck pain Cardiovascular: Cardiovascular: Reports no additional cardiovascular complaints, Denies chest pain, Denies leg edema and Reports dyspnea Respiratory: Respiratory: Reports no additional respiratory complaints, Reports cough, Reports dyspnea and Reports wheezing Gastrointestinal: Gastrointestinal: Reports no additional gastrointestinal complaints, Denies abdominal pain, Denies diarrhea, Denies nausea and Denies vomiting Genitourinary: Genitourinary: Reports no additional female genitourinary complaints and Denies urinary incontinence Musculoskeletal: Musculoskeletal: Reports no additional musculoskeletal complaints, Denies back pain, Denies arthralgias, Denies joint swelling, Denies neck pain, Denies numbness and Denies tingling Integumentary/Breasts: Skin/Breast: Reports system reviewed and no additional complaints, except as docu and Denies rash Neurologic: Reports system reviewed and no additional complaints, except as documented, Denies Abnormal speech present, Denies dizziness, Denies headache(s), Denies numbness, Denies tingling and Denies weakness Allergic/Immunologic: Allergic/Immunologic: Reports wheezing PMFSH Past Medical History Attestation statement: The following information was validated with the patient. Source: old records reviewed and nursing notes reviewed Medical History Asthma Chiari malformation type II COVID-19 Diabetes DVT (deep venous thrombosis) Surgical History Hx of carpal tunnel repair Hx of knee surgery Hx of tonsillectomy Social History Social History Household Members: Family Housing: House Do you presently have visiting nurse or other home services: No Alcohol intake: never Patient Tobacco Use Status: Never used Tobacco Smoked in Last 30 Days: No Use of substances other than those prescribed or required for medical reasons: No Advance Directives: Yes Advance Directives on File: Yes Advance Directives Date on File: 06/29/22 Patient : No service: No Current occupational status: employed Physical Exam Vital Signs: Vital Signs: Last Vital Signs Temp 97.8 F 12/24/22 11:01 Pulse 106 H 12/24/22 11:01 Resp 16 12/24/22 11:01 BP 140/83 H 12/24/22 11:01 Pulse Ox 97 12/24/22 11:01 O2 Del Method 12/24/22 11:01 BMI result Body Mass Index 47.2 Const: General: cooperative, healthy appearing, comfortable and no acute distress Orientation/consciousness: patient oriented x3 Limitations: no limitations HEENT: Head: Yes normal to inspection Ears: hearing grossly normal bilatera lly General nose exam: Normal external nose present Face and sinus: Yes normal facial exam Mouth: Normal oral and palatal mucosa present Throat: Yes posterior oropharynx normal Eyes: General: appearance normal, both eyes and all related structures Pupils: Equal, round and reactive pupils present Neck: Neck: Yes normal visual inspection Chest: Chest palpation & inspection: normal inspection of the chest Resp: Other: Diminished breath sounds with mild expiratory wheezing in the upper respiratory lung garcia. Effort & Inspection: normal respiratory effort Cardio: Rate: regular rate Rhythm: regular rhythm Peripheral pulses: Peripheral pulses 2+ throughout GI: Inspection: Yes normal to inspection Palpation (GI): Soft to palpation and nontender Auscultation: normal bowel sounds Back/Spine/Pelvis: Thoracic/Lumbar Spine: thoracic and lumbar spine normal to inspection Skin: General skin exam: no rashes or lesions noted Neuro: General: patient oriented x3, no focal motor deficits and normal sensation to monofilament Cranial nerves: Yes Equal, round and reactive pupils present Cognition (Neuro): normal cognition Speech: No Abnormal speech present Gait exam (Neuro): Normal gait present Motor exam (neuro): 5/5 motor strength present throughout Extrem: General: Yes normal to inspection, Yes no pedal edema and Yes no calf tenderness Course Course Course Narrative: 1053 - Patient completed updraft. Lung sounds with better air movement, minimal expiratory wheezes heard. Patient is feeling well and would like to be discharged home. Vital signs still within normal limits, chest x-ray is normal, and viral swabs were negative. Will treat patient with course of prednisone, advised to continue her at home asthma medications into follow-up with her employment legal assistant Medications Administered Discontinued Medications Generic Name Dose Route Start Last Admin Trade Name Jamey PRN Reason Stop Dose Admin Albuterol Sulfate 5 mg/ 0 mg 12/24/22 09:43 12/24/22 09:53 Ipratropium [place] 0.5 mg INHALE 12/24/22 09:44 2.5 each ONCE ONE Administration Prednisone 60 mg 12/24/22 09:43 12/24/22 09:59 Prednisone 20 Mg Tablet PO 12/24/22 09:44 60 mg ONCE ONE Administration Medical Decision Making Medical Decision Making [facility] Narrative: This is a 42-year-old female, with past medical history asthma, who presents today with shortness of breath, cough, wheezing the last week, worsening since last night. Patient has been using her home nebulizers without any relief. On examination, patient's vital signs are within normal limits, with normal res piratory effort, lung sounds with diminished breath sounds and mild expiratory wheezes. Patient reports that her symptoms are consistent with her typical asthma exacerbations. Given from presentation, lungs sounds on examination, we will treat with albuterol updraft and prendisone PO. Given patient is not hypoxic or tachycardic without any chest pain, palpitations, leg pain/swelling, PE is unlikely. Will obtain chest x-ray and viral swabs to r/o viral/bacterial etiology. Differential Diagnosis Differential Diagnoses: The differential diagnosis associated with the presentation includes Asthma exacerbation, URI, bronchitis, pneumonia, COVID-19, influenza, reactive airway disease, PE - less likely Lab Data [facility] Lab Attestation statement: I reviewed the patient's lab results. Labs: Lab Results 12/24/22 12/24/22 Range/Units 09:56 09:56 COVID-19 (BRIAN) Negative (Negative) COVID-19 Clin Com See Note Influenza Type A (SHANITA) Negative (Negative) Influenza Type B (SHANITA) Negative (Negative) Influenza A & B Note See Note Independent Interpretation I performed an independent interpretation of an: Plain X-Ray Interpretation: I independently reviewed the chest x-ray and agree with radiologist's report Radiology Impression Discussion of test interpretation with radiology: I have reviewed the radiologist's reading. Radiologist Impression: EXAMINATION: XR CHEST CLINICAL INFORMATION: Shortness of breath COMPARISON: June 2022. TECHNIQUE: 2 views of the chest were obtained. FINDINGS: No significant abnormality is noted involving the heart, lungs, mediastinum, bony thorax or soft tissues. There is multilevel thoracic spondylitic change. XR/XR chest 2V IMPRESSION: Unremarkable examination. Discharge Plan Discharge Clinical Impression: Asthma with acute exacerbation Patient Disposition: Home, Self-Care Instructions: Asthma (ED) Additional Instructions: Your chest x-ray was normal today. You tested negative for COVID and flu today. Take prescribed prednisone as directed. Continue using your at home asthma medications and albuterol updrafts as needed. Follow up with your employment legal assistant regarding this visit. If any new or worsening symptoms occur, please return for re-evaluation. Prescriptions: New prednisone 20 mg tablet 40 mg PO DAILY Qty: 8 0RF No Action albuterol sulfate 90 mcg/actuation HFA aerosol inhaler 1 inh inhalation QID PRN (Reason: shortness of breath or wheezing) Qty: 8.5 0RF glipizide 2.5 mg tablet extended release 24hr 1 tab PO BIDAC prednisone 10 mg tablet 40 mg PO DAILY Qty: 16 0RF albuterol sulfate 0.63 mg/3 mL solution for nebulization 0.63 mg inhalation QID PRN (Reason: shortness of breath or wheezing) Qty: 75 0RF naproxen 500 mg tablet 500 mg PO BID PRN (Reason: pain) Qty: 14 0RF Interventions: ED Discharge Assessment Last Done: 12/24/22 10:59 Discharge Date/Time: 12/24/22 11:00
[2022-12-24 09:53] VITALS: PULSE 96; RESP 18; O2SAT 95
[2022-12-24] MEDS: predniSONE 20 MG TABLET 60 MG PO (09:59)
[2022-12-24 10:01] VITALS: BP 145/76; PULSE 90; RESP 20; O2SAT 97
[2022-12-24 10:20] LABS: COVID-19 Test Negative (Negative); IDNOW Serial# 55D5AD1C
--- NOTE | 2022-12-24 10:22 | PC.NURSE ---
pt is alert and oriented, skin pwd, respirations even and unlabored, ls expiatory wheezing and diminished pt reports feeling sob since Saturday, denies cough/fevers, having some chest tightness/pain with deep inspirations. pain at 8/10. ns on the monitor.
[2022-12-24 10:30] LABS: IDNOW Serial# 16C4AD1C; Influenza A Negative (Negative); Influenza B2 Negative (Negative)
[2022-12-24 10:39] VITALS: BP 142/79; PULSE 100; RESP 21; TEMP 36.8; O2SAT 98
[2022-12-24 11:01] VITALS: BP 140/83; PULSE 106; RESP 16; TEMP 36.6; O2SAT 97
== END 2022-12-24 11:00 | disposition home or self-care (01) ==
PROVIDERS: Nurse Practitioner Family; Emergency Provider Emergency Medicine; PCP Internal Medicine
DX: J45.901 Unspecified asthma with (acute) exacerbation (principal); Z79.899 Other long term (current) drug therapy; Z20.822 Contact with and (suspected) exposure to COVID-19
CPT/HCPCS: 71046; 87502; 87635; 94640; 99284; 99285

== ENCOUNTER 2023-01-06 17:51 | Emergency (ER) | payer BC, SELFPAY ==
--- OUTSIDE RECORDS SUMMARY | 2023-01-06 18:56 | XMS_ITS | Continuity of Care Document ---
:1980 Author Organization [facility] Address [address] [place] [id number]- Care Team Providers Name Role Phone Jonna Carvalho MD Primary Care Physician Encounter [facility] Date(s): 11/20/22 - 12/20/22 [facility] Endocrinology and Diabetes [address] [place] [id number]- Allergies, Adverse Reactions, Alerts Substance Reaction Severity [...] Date: 04/30/22 Stop Date: 10/27/22 Status: OrderedFreestyle Zeynep 3 sensors Freestyle Zeynep 3 sensors, See Instructions, # 2 each, Refills 11, Tot. Refills 11, Maintenance, Useto monitor blood glucose continuously, change every 14 days, E11.65, 10/17/22 17:55:00 EST, Supply, 149.6, cm, 10/17/22 16:33:00 EST, Height, 106.5, k... Start Date: 10/17/22 Status: OrderedFREESTYLE LITE BLOOD GLUCOSE STRIPS FREESTYLE LITE BLOOD GLUCOSE STRIPS, See Instructions, # 200 Unknown, 0 Refills, Maintenance, USE TOCHECK SUGAR EVERY DAY FOR TYPE 2 DIABETES, 11/21/22 16:16:00 EST, 149.6, cm, 10/17/22 16:33:00 EST, Height, 106.5, kg, 08/22/22 6:31:00 EDT, Dry Weight Start Date: 11/21/22 Status: OrderedFreestyle Lite Monitor See Instructions, # [...] tablet, 2 Refills, Maintenance, 04/30/22 12:51:00 EDT, [id number], Partial fill upon patient request if the prescription is for a schedule II opioid drug., 14... Start Date: 04/30/22 Status: OrderedLantus Solostar Pen 100 units/mL subcutaneous solution See Instructions, 10 units Subcutaneous Injection twice per day rotate injection sites, # 15 mL, 2 Refills, Maintenance, 10/10/22 9:58:00 EST, Solution, [facility] #[id number], Partial fill upon patient request if the prescription is for a sche... Start Date: 10/10/22 Status: OrderedPen [place], 31 G x 5 mm BD Ultra Fine III See Instructions, # 100 each, Refills 5, Tot. Refills 5, Maintenance, To administer insulin twice per day for Dx E11:65, 10/10/22 10:02:00 EST, Supply, 149.6, cm, 10/10/22 9:01:00 EST, Height, 106.5, kg, 08/22/22 6:31:00 EDT, Dry Weight Start Date: 10/10/22 Stop Date: 04/08/23 Status: OrderedProAir HFA 90 mcg/inh inhalation aerosol with adapter 180 mcg, 2, puffs, Inhalation, 4 times a day, use with spacer chamber, # 8.5 Gm, Refills 5, Tot. Refills 5, Maintenance, 07/09/22 13:25:00 EDT, Inhaler, Route to Pharmacy Electronically, [id number], [facility] #[id number]... Start Date: 07/09/22 Stop Date: 01/05/23 Status: OrderedSingulair 10 mg oral tablet 10 mg, 1, tablet, By Mouth, Daily in PM, # 90 tablet, Refills 0, Tot. Refills 0, Maintenance, 11/27/22 10:19:00 EST, Route to Pharmacy Electronically, [facility][id number], Partial fill upon patient request if the prescription is for a schedule... Start Date: 11/27/22 Status: OrderedTrelegy Ellipta 200 mcg-62.5 mcg-25 mcg/inh inhalation powder 1 puffs, Inhalation, Daily, at the same time every day, replaces Breo, # 1 each, 5 Refills, Maintenance, 11/27/22 10:19:00 EST, Powder, [facility] #[id number], asthma j45.9, inadequate symptom control on Breo, 1 puffs Inhalation Daily,x30 days,In... Start Date: 11/27/22 Stop Date: 05/26/23 Status: Ordered Problem List Condition Confirmation Course Effective Dates Status Health Stat us Informant Body mass index 40+ Confirmed 04/21/18 Active - severely obese Carpal tunnel Confirmed 04/21/18 Active syndrome Chiari malformation Confirmed 04/21/18 Active type II Deep venous Confirmed 01/04/20 Active thrombosis History of Confirmed 05/13/20 Active operative procedure on knee Irritable bowel Confirmed 08/05/18 Active syndrome with diarrhea Moderate major Confirmed 07/12/20 Active depression, single episode Obstructive sleep Confirmed 04/21/18 Active apnea syndrome Severe obesity Confirmed Active Tubular adenoma of Confirmed 05/15/18 Active colon Social History Social History Type Response Smoking Status Never smoker entered on: 02/25/17 Sex Patient Care team information Care Team PersonnelName: Deven HERNANDEZ, Jonna Walker Position: [facility] Primary Care Physician Member Role: PCP Address: Address: [address] [place] [address] [place] [address]- [place] Care Team Related PersonsName: CRISTY LAZARO Address: home [address] [place] [address] Name: ERICA LAZARO Address: [address] [place] [address] Name: ADRIENNE LAZARO Address: [address] [place] [address] Name: NEETA WALLS Address: [address] [place] [address]
--- OUTSIDE RECORDS SUMMARY | 2023-01-06 18:56 | XMS_ITS | Continuity of Care Document ---
:1980 Author Organization [facility] Address [address] [place] [phone]- Care Team Providers Name Role Phone Jonna Carvalho MD Primary Care Physician Encounter [facility] Date(s): 10/17/22 - 12/02/[address] [address] Attending Physician: Deandra Bellamy MD Admitting Physician: Deandra Bellamy MD Referring Physician: Jonna Carvalho MD Allergies, [...] tablet, 2 Refills, Maintenance, 04/30/22 12:51:00 EDT, [facility] #[id number], Partial fill upon patient request if the prescription is for a schedule II opioid drug., 14... Start Date: 04/30/22 Status: OrderedLantus Solostar Pen 100 units/mL subcutaneous solution See Instructions, 10 units Subcutaneous Injection twice per day rotate injection sites, # 15 mL, 2 Refills, Maintenance, 10/10/22 9:58:00 EST, Solution, [facility] #[id number], Partial fill upon patient request if the prescription is for a sche... Start Date: 10/10/22 Status: OrderedPen [place], 31 G x 5 mm BD Ultra [...] 13:25:00 EDT, Inhaler, Route to Pharmacy Electronically, [id number], [facility] #[id number]... Start Date: 07/09/22 Stop Date: 01/05/23 Status: OrderedSingulair 10 mg oral tablet 10 mg, 1, tablet, By Mouth, Daily in PM, # 90 tablet, Refills 0, Tot. Refills 0, Maintenance, 11/27/22 10:19:00 EST, Route to Pharmacy Electronically, [facility] #[id number], Partial fill upon patient request if the prescription is for a schedule... Start Date: 11/27/22 Status: OrderedTrelegy Ellipta 200 mcg-62.5 mcg-25 mcg/inh inhalation powder 1 puffs, Inhalation, Daily, at the same time every day, replaces Breo, # 1 each, 5 Refills, Maintenance, 11/27/22 10:19:00 EST, Powder, [facility] #[id number], asthma j45.9, inadequate symptom control on Breo, [...] Team PersonnelName: Deven HERNANDEZ, Jonna Walker Position: [facility] Primary Care Physician Member Role: PCP Address: Address: [address] [place] [address] [place] [address]- [place] Care Team Related PersonsName: CRISTY LAZARO Address: home [address] [place] [address] Name: ERICA LAZARO Address: home [address] [place] [id number] Name: ADRIENNE LAZARO Address: [address] [place] [address] Name: NEETA WALLS Address: [address] [place] [address]
== END 2023-01-06 19:03 | disposition left against medical advice (07) ==
PROVIDERS: Emergency Provider Emergency Medicine; PCP Internal Medicine
DX: J45.909 Unspecified asthma, uncomplicated (principal); R06.02 Shortness of breath

== ENCOUNTER 2023-01-07 06:49 | Emergency (ER) | payer BC, SELFPAY ==
--- NOTE | ~2023-01-07 | XR_ITS ---
EXAMINATION: XR CHEST CLINICAL INFORMATION: Shortness of breath COMPARISON: Multiple priors with the last chest x-ray of 12/24/2022, selected images of the chest CT of 03/28/2020 TECHNIQUE: Frontal view of the chest was obtained. FINDINGS: Cardiomediastinal silhouette is stable and normal. The lungs are symmetrically well expanded. No focal consolidation, changes of congestion or pleural effusions or pneumothorax are seen. Regional skeleton is intact. Multilevel degenerative changes are noted in the mid to lower thoracic spine with the prominent right-sided lateral osteophytes. Visualized upper abdomen is unremarkable. XR/XR chest 1V IMPRESSION: No radiographic evidence of pneumonia. No acute pulmonary process.
[2023-01-07 06:54] VITALS: BP 151/86; PULSE 103; RESP 22; TEMP 36.6; O2SAT 96; BMI 46.3
[2023-01-07 07:06] VITALS: BP 125/78; PULSE 96; RESP 18; TEMP 36.6; O2SAT 96
[2023-01-07 07:18] VITALS: PULSE 96; O2SAT 94
--- NOTE | 2023-01-07 07:26 | ED_ITS ---
HPI - URI/Sore Throat General Chief Complaint: Upper Respiratory Symptoms Stated Complaint: Asthma Time Seen by Provider: 01/07/23 07:10 Source: patient Mode of arrival: ambulatory Limitations: no limitations History of Present Illness HPI Narrative: 42-year-old female with past medical history significant for asthma presents to the emergency department with complain of wheezing and shortness of breath for the past 10 days, patient think that her asthma is been triggered by being sick with cold, patient was seen last week for same symptoms sent home on bronchodilator and prednisone return today for no improvement of her symptoms. No fever, no chills, no lower extremity swelling. Related Data Home Medications Medication Instructions Recorded Confirmed glipizide 2.5 mg tablet, extended 1 tab PO BIDAC 06/28/22 01/07/23 release 24 hr insulin glargine 100 unit/mL (3 20 unit subcut BID 01/07/23 01/07/23 mL) subcutaneous pen (Lantus Solostar U-100 Insulin) prednisone 20 mg tablet 20 mg PO DAILY 01/07/23 01/07/23 Previous Rx's Medication Instructions Recorded albuterol sulfate 90 mcg/actuation 1 inh inhalation QID PRN shortness 10/29/21 aerosol inhaler of breath or wheezing #8.5 grams albuterol sulfate 0.63 mg/3 mL 0.63 mg (3 mL) inhalation QID PRN 07/03/22 solution for nebulization shortness of breath or wheezing #75 mL azithromycin 250 mg tablet See Rx Instructions PO .COMPLEX #6 01/07/23 (Zithromax Z-Yonatan) tabs prednisone 20 mg tablet 20 mg PO BID #10 tabs 01/07/23 Allergies Allergy/AdvReac Type Severity Reaction Status Date / Time Heparin Analogues Allergy Intermediate HIVES, Verified 01/07/23 06:54 [HEPARIN AGENTS] RASH, SEVERE BRUISING Heparin Combination Allergy Unknown Hives Uncoded 01/07/23 06:54 Review of Systems Review of Systems: All other systems are reviewed and are negative Constitutional: Reports as per HPI and Reports no additional constitutional complaints Eyes: Reports as per HPI and Reports no additional eye complaints Reports system reviewed and no additional complaints, except as documented Cardiovascular: Reports as per HPI and Reports no additional cardiovascular complaints Respiratory: Reports as per HPI and Reports no additional respiratory complaints Gastrointestinal: Reports as per HPI and Reports no additional gastrointestinal complaints Genitourinary: Reports no additional female genitourinary complaints Musculoskeletal: Reports no additional musculoskeletal complaints Skin/Breast: Reports system reviewed and no additional complaints, except as docu Psychiatric: Reports no additional psychiatric complaints Endocrine: Reports no additional endocrine complaints Hematologic/Lymphatic: Reports no additional hematologic/lymphatic complaints Allergic/Immunologic: Reports no additional allergic/immunologic complaints Reports system reviewed and no additional complaints, except as documented and Reports Abnormal speech present [facility] Past Medical History Medical History Asthma Chiari malformation type II COVID-19 Diabetes DVT (deep venous thrombosis) Surgical History Hx of carpal tunnel repair Hx of knee surgery Hx of tonsillectomy Social History Social History Household Members: Family Housing: House Do you presently have visiting nurse or other home services: No Alcohol intake: never Patient Tobacco Use Status: Never used Tobacco Smoked in Last 30 Days: No Use of substances other than those prescribed or required for medical reasons: No Advance Directives: Yes Advance Directives on File: Yes Advance Directives Date on File: 06/29/22 Patient : No service: No Current occupational status: employed Physical Exam Vital Signs: Vital Signs: Last Vital Signs Temp 98 F 01/07/23 09:17 Pulse 108 H 01/07/23 09:17 Resp 15 01/07/23 09:17 BP 125/79 01/07/23 09:17 Pulse Ox 94 01/07/23 09:17 O2 Del Method 01/07/23 09:17 BMI result Body Mass Index 46.3 Vital signs have been reviewed as appeared to be correct. Blood pressure normal. Heart rate normal. Respiration rate normal. Temperature normal. Oxygen saturation normal. Appearance: Alert. Oriented X3. No acute distress. Head: Normal external exam. Normocephalic. Atraumatic. No Buchanan signs noted. No raccoon eyes noted Eyes: PERRLA. EOMI. Conjunctiva and sclera normal. Eyelids normal. ENT: TM's Normal. Pharynx normal. Uvula midline. Moist mucous membranes. No trismus noted. No drooling noted. No muffled voice noted. Neck: Normal inspection. Neck supple. FROM. No adenopathy. Thyroid Normal. No meningeal signs. No neck mass noted. CVS: Normal heart rate and rhythm. Heart sound normal. No murmurs noted. Pulses normal throughout. Respiratory: No respiratory distress. Painless inspiration. Breath sounds normal. Bilateral expiratory wheezing with prolonged expiration.. No accessory muscle usage noted or decreased air movement noted. Abdomen: Soft and nontender. Bowel sounds normal in all 4 quadrants. No distention noted. No organomegaly noted. No visible injury noted. Back: No CVA tenderness. Full range of motion noted. Skin: Skin warm and dry. Normal skin color. Normal skin turgor. No rashes/lesions/lacerations noted. Extremities: No lower extremity edema. Extremities exhibit normal range of motion. Extremities nontender. Neuro: Oriented X 3. Cranial nerve exam: II-XII are grossly intact No motor deficit. No sensory deficit. Reflexes normal. Course Course Course Narrative: Acute asthma exacerbation, patient is not responding to oral prednisone, patient has partial improvement with IV Solu-Medrol and continuous bronchodilator. Reevaluation(s) Reevaluation #1: The plan was to admit the patient for more aggressive treatment of the asthma patient now feels better and like to go home. Will discharge the patient home on Z-Yonatan/albuterol/prednisone. Time: 10:43 Medications Administered Discontinued Medications Generic Name Dose Route Start Last Admin Trade Name Freq PRN Reason Stop Dose Admin Albuterol Sulfate 7.5 mg 01/07/23 07:25 01/07/23 07:42 Albuterol Sulfate (0.083%) 2.5 Mg/3 Ml Vial.Neb INHALE 01/07/23 07:26 7.5 mg ONCE ONE Administration Magnesium Sulfate 2 gm in 50 mls @ 25 mls/hr 01/07/23 07:47 01/07/23 08:30 Magnesium Sulfate/H2o IV 01/07/23 09:46 Infused ONCE ONE Infusion Methylprednisolone Sodium Succinate 125 mg 01/07/23 07:25 01/07/23 07:46 Methylprednisolone Sod Succ 125 Mg/2 Ml Vial IVPUSH 01/07/23 07:26 125 mg ONCE ONE Administration Medical Decision Making Differential Diagnosis Differential Diagnoses: The differential diagnosis associated with the presentation includes (Acute asthma exacerbation, pneumonia, viral upper respiratory infection.) Admission/Observation Consideration of admission/observation: Escalation of care including admission/observation considered Consult Healthcare Provider Management of the patient was discussed with: Hospitalist Lab Data MDM Lab Attestation statement: I reviewed the patient's lab results. 01/07/23 07:38 01/07/23 07:38 Labs: Lab Results 01/07/23 01/07/23 01/07/23 Range/Units 07:38 07:38 07:38 WBC 6.7 (4.8-10.8) X10*3/uL RBC 4.92 (4.20-5.50) X10*6/uL Hgb 14.8 (12.0-16.0) g/dl Hct 42.9 (37.0-47.0) % MCV 87.2 (80.0-98.0) fL MCH 30.1 (27.0-33.0) pg MCHC 34.5 (31.0-35.0) g/dl RDW 12.1 (11.0-16.0) % Plt Count 225 (160-400) X10*3/uL MPV 8.9 L (9.4-12.3) fL Immature Gran % (Auto) 0.3 (0.0-0.4) % Neut % (Auto) 52.8 (45-73) % Lymph % (Auto) 29.2 (20-40) % [place] % (Auto) 12.6 H (2-11) % Eos % (Auto) 4.5 H (0-4) % Baso % (Auto) 0.6 (0-2) % Lymph # (Auto) 2.0 (1.2-4.9) X10*3/uL [place] # (Auto) 0.8 (0.1-1.2) X10*3/uL Eos # (Auto) 0.3 (0.0-0.4) X10*3/uL Baso # (Auto) 0.0 (0.0-0.2) X10*3/uL Abs Immat Gran (auto) 0.02 (0.00-0.03) X10*3/uL Absolute Neuts (auto) 3.5 (2.0-8.3) x10*3/uL Absolute Nucleated RBC 0.000 (0.0-0.012) X10*3/uL Nucleated RBC % (auto) 0.0 (0.0-0.2) /100WBC Sodium 136 (135-145) mmol/L Potassium 4.2 (3.3-5.1) mmol/L Chloride 105 (96-108) mmol/L Carbon Dioxide 22 (22-29) mmol/L Anion Gap 13 (12-20) BUN 11 (9-16) mg/dL Creatinine 0.64 (0.5-1.4) mg/dL Estim Creat Clear Calc 122.0 Estimated GFR > 60 Random Glucose 279 H (60-115) mg/dL Calcium 8.8 (8.4-10.2) mg/dL Total Bilirubin 0.9 (0.0-1.0) mg/dL Direct Bilirubin 0.3 (0.0-0.5) mg/dL AST 49 H (5-31) U/L ALT 106 H (0-31) U/L Alkaline Phosphatase 68 (39-117) U/L Troponin I High Sens < 3.5 (<3.5-17.0) ng/L B-Natriuretic Peptide (<100) pg/mL Total Protein 6.2 L (6.5-8.0) g/dL Albumin 3.8 (3.5-5.0) g/dL Lipase 13 (8-78) U/L Urine Color Urine Appearance Urine pH (5.0-9.0) Ur Specific [place] (1.005-1.025) Urine Protein (Neg-Trace) mg/dL Urine Glucose (UA) (Negative) mg/dL Urine Ketones (Negative) mg/dL Urine Blood (Negative) Urine Nitrite (Negative) Ur Leukocyte Esterase (Negative) Urine RBC (0-2) /HPF Urine WBC (0-5) /HPF Ur Squamous Epith Cells (0-2) /HPF Urine Bacteria (None Seen) Hyaline Casts (0-2) /LPF Urine Yeast Influenza Type A (PCR) (Negative) Influenza Type B (PCR) (Negative) RSV RNA Qual (PCR) (Negative) SARS-CoV-2 RNA (RT-PCR) (Negative) 01/07/23 01/07/23 01/07/23 Range/Units 07:38 07:39 08:57 WBC (4.8-10.8) X10*3/uL RBC (4.20-5.50) X10*6/uL Hgb (12.0-16.0) g/dl Hct (37.0-47.0) % MCV (80.0-98.0) fL MCH (27.0-33.0) pg MCHC (31.0-35.0) g/dl RDW (11.0-16.0) % Plt Count (160-400) X10*3/uL MPV (9.4-12.3) fL Immature Gran % (Auto) (0.0-0.4) % Neut % (Auto) (45-73) % Lymph % (Auto) (20-40) % [place] % (Auto) (2-11) % Eos % (Auto) (0-4) % Baso % (Auto) (0-2) % Lymph # (Auto) (1.2-4.9) X10*3/uL [place] # (Auto) (0.1-1.2) X10*3/uL Eos # (Auto) (0.0-0.4) X10*3/uL Baso # (Auto) (0.0-0.2) X10*3/uL Abs Immat Gran (auto) (0.00-0.03) X10*3/uL Absolute Neuts (auto) (2.0-8.3) x10*3/uL Absolute Nucleated RBC (0.0-0.012) X10*3/uL Nucleated RBC % (auto) (0.0-0.2) /100WBC Sodium (135-145) mmol/L Potassium (3.3-5.1) mmol/L Chloride (96-108) mmol/L Carbon Dioxide (22-29) mmol/L Anion Gap (12-20) BUN (9-16) mg/dL Creatinine (0.5-1.4) mg/dL Estim Creat Clear Calc Estimated GFR Random Glucose (60-115) mg/dL Calcium (8.4-10.2) mg/dL Total Bilirubin (0.0-1.0) mg/dL Direct Bilirubin (0.0-0.5) mg/dL AST (5-31) U/L ALT (0-31) U/L Alkaline Phosphatase (39-117) U/L Troponin I High Sens (<3.5-17.0) ng/L B-Natriuretic Peptide < 10 (<100) pg/mL Total Protein (6.5-8.0) g/dL Albumin (3.5-5.0) g/dL Lipase (8-78) U/L Urine Color Yellow Urine Appearance Clear Urine pH 6.0 (5.0-9.0) Ur Specific [place] >= 1.030 H (1.005-1.025) Urine Protein Negative (Neg-Trace) mg/dL Urine Glucose (UA) >=1000 H (Negative) mg/dL Urine Ketones 40 (Negative) mg/dL Urine Blood Negative (Negative) Urine Nitrite Negative (Negative) Ur Leukocyte Esterase Negative (Negative) Urine RBC 0-2 (0-2) /HPF Urine WBC 0-5 (0-5) /HPF Ur Squamous Epith Cells 3-5 (0-2) /HPF Urine Bacteria Trace (None Seen) Hyaline Casts 0-2 (0-2) /LPF Urine Yeast Present Influenza Type A (PCR) NEGATIVE (Negative) Influenza Type B (PCR) NEGATIVE (Negative) RSV RNA Qual (PCR) NEGATIVE (Negative) SARS-CoV-2 RNA (RT-PCR) NEGATIVE (Negative) Independent Interpretation I performed an independent interpretation of an: Plain X-Ray (Chest: No acute intrathoracic pathology.) Radiology Impression Discussion of test interpretation with radiology: I have reviewed the radiologist's reading. Discharge Plan Discharge Clinical Impression: Acute asthma exacerbation Patient Disposition: Home, Self-Care Instructions: Asthma (ED) Prescriptions: New prednisone 20 mg tablet 20 mg PO BID Qty: 10 0RF azithromycin [Zithromax Z-Yonatan] 250 mg tablet See Rx Instructions .ROUTE .COMPLEX Qty: 6 0RF Rx Instructions: For 250 mg dose pack: take 500 mg today (day 1), then 250 mg for 4 days (days 2-5) No Action albuterol sulfate 90 mcg/actuation HFA aerosol inhaler 1 inh inhalation QID PRN (Reason: shortness of breath or wheezing) Qty: 8.5 0RF glipizide 2.5 mg tablet extended release 24hr 1 tab PO BIDAC albuterol sulfate 0.63 mg/3 mL solution for nebulization 0.63 mg inhalation QID PRN (Reason: shortness of breath or wheezing) Qty: 75 0RF insulin glargine [Lantus Solostar U-100 Insulin] 100 unit/mL (3 mL) insulin pen 20 unit subcut BID prednisone 20 mg tablet 20 mg PO DAILY Rx Instructions: pt had 2 days treatment remaining (01/07 and 01/08 Referrals: Jonna Carvalho MD [Primary Care Provider] - Stand Alone Forms: Work/School Release
[2023-01-07] MEDS: Albuterol Sulfate (0.083%) 2.5 MG/3 ML VIAL.NEB 7.5 MG INHALE (07:42)
[2023-01-07 07:44] VITALS: PULSE 98; RESP 23; O2SAT 100
--- NOTE | 2023-01-07 07:45 | PC.NURSE ---
pt is a/o x 4 c/o sob 2ndary to asthma. lungs all lobes tight with insp/exp wheezing. pt speaks in full sentences. pt seen by md. pt aware of plan of care.
[2023-01-07] MEDS: methylPREDNISolone Sod Succ 125 MG/2 ML VIAL IVPUSH (07:46)
[2023-01-07 07:47] LABS: MANUAL DIFF FLAG NO
[2023-01-07 07:49] LABS: Basophils Percent Auto 0.6 % (0-2); Eosinophils Absolute Auto 0.3 X10*3/uL (0.0-0.4); Eosinophils Percent Auto 4.5 % (0-4); Hematocrit 42.9 % (37.0-47.0); Hemoglobin 14.8 g/dl (12.0-16.0); Imm Gran Abs Auto 0.02 X10*3/uL (0.00-0.03); Imm Gran Pct Auto 0.3 % (0.0-0.4); Lymphocytes Percent Auto 29.2 % (20-40); Mean Corpuscular HGB Conc 34.5 g/dl (31.0-35.0); Mean Corpuscular Hemoglobin 30.1 pg (27.0-33.0); Mean Corpuscular Volume 87.2 fL (80.0-98.0); Mean Platelet Volume 8.9 fL (9.4-12.3); Monocytes Absolute Auto 0.8 X10*3/uL (0.1-1.2); Monocytes Percent Auto 12.6 % (2-11); Neutrophils Absolute Auto 3.5 x10*3/uL (2.0-8.3); Neutrophils Percent Auto 52.8 % (45-73); Platelet Count 225 X10*3/uL (160-400); Red Blood Count 4.92 X10*6/uL (4.20-5.50); Red Cell Distribution Width 12.1 % (11.0-16.0); White Blood Count 6.7 X10*3/uL (4.8-10.8)
[2023-01-07] MEDS: Magnesium Sulfate/H2O 2 GM/50 ML PIGGYBACK IV (07:58)
[2023-01-07 08:13] LABS: B Type Natriuretic Peptide < 10 pg/mL (<100)
[2023-01-07 08:14] LABS: Alanine Aminotransferase 106 U/L (0-31); Albumin Level 3.8 g/dL (3.5-5.0); Alkaline Phosphatase 68 U/L (39-117); Anion Gap 13 (12-20); Aspartate Amino Transferase 49 U/L (5-31); Bilirubin Direct 0.3 mg/dL (0.0-0.5); Bilirubin Total 0.9 mg/dL (0.0-1.0); Blood Urea Nitrogen 11 mg/dL (9-16); Calcium 8.8 mg/dL (8.4-10.2); Carbon Dioxide 22 mmol/L (22-29); Chloride 105 mmol/L (96-108); Estimated Glomerular Filt Rate > 60; Glucose Random 279 mg/dL (60-115); Lipase 13 U/L (8-78); Potassium 4.2 mmol/L (3.3-5.1); Sodium 136 mmol/L (135-145); Total Protein 6.2 g/dL (6.5-8.0)
[2023-01-07 08:20] LABS: Troponin-I High Sensitivity < 3.5 ng/L (<3.5-17.0)
[2023-01-07 08:35] LABS: Influenza A PCR NEGATIVE (Negative); Influenza B PCR NEGATIVE (Negative); Resp Syncy Virus RNA Qual PCR NEGATIVE (Negative); SARS COV2 PCR INHOUSE NEGATIVE (Negative)
[2023-01-07 09:12] LABS: Appearance Urine Clear; Color Urine Yellow; Glucose Urine UA >=1000 mg/dL (Negative); Leukocyte Esterase Urine Negative (Negative); Nitrite Urine Negative (Negative); Specific Gravity - Urine >= 1.030 (1.005-1.025); UMIC TRIGGER UACC YES; Urine Blood Negative (Negative); Urine Ketones 40 mg/dL (Negative); Urine Protein Negative (Neg-Trace)
[2023-01-07 09:17] VITALS: BP 125/79; PULSE 108; RESP 15; TEMP 36.6; O2SAT 94
[2023-01-07 09:23] LABS: Bacteria Urine Trace (None Seen); Hyaline Casts Urine 0-2 /LPF (0-2); RBC Urine 0-2 /HPF (0-2); WBC Urine 0-5 /HPF (0-5)
--- NOTE | 2023-01-07 09:54 | PC.NURSE ---
pt aware of plan of care for admission.
--- NOTE | 2023-01-07 10:37 | PHA.MEDREC ---
Pharmacy Consult ? Medication Reconciliation Pharmacy has completed the medication reconciliation. Pt states she takes 20 units lantus bid. Also says she uses advair for asthma but there is no record of it in claim history. She has no idea of the dosing. I called pharmacy she says she fills it at ([phone]) and they also have no record of ever filling advair for her. She is at the end of a prednisone taper and has 2 days of therapy remaining including today.
[2023-01-07 10:58] VITALS: BP 128/68; PULSE 100; RESP 17; TEMP 36.7; O2SAT 96
== END 2023-01-07 11:07 | disposition home or self-care (01) ==
PROVIDERS: Emergency Provider Emergency Medicine; PCP Internal Medicine
DX: J45.901 Unspecified asthma with (acute) exacerbation (principal); J00 Acute nasopharyngitis [common cold]; Z86.16 Personal history of COVID-19; Q07.00 Arnold-Chiari syndrome without spina bifida or hydrocephalus; E11.9 Type 2 diabetes mellitus without complications
CPT/HCPCS: 0241U; 71045; 80048; 80076; 81001; 83690; 83880; 84484; 85025; 94640; 96365; 96375; 99284; 99285; J2930; J3475

== ENCOUNTER 2023-06-29 09:22 | Emergency (ER) | payer BC, SELFPAY ==
--- NOTE | ~2023-06-29 | CT_ITS ---
EXAMINATION: CT head/brain wo IV con CLINICAL INFORMATION: Reason for Exam syncope, ALLEN COMPARISON: CT brain 12/08/2021 TECHNIQUE: Contiguous axial imaging was performed from the skull base to vertex without intravenous contrast. Sagittal and coronal reformatted images were obtained. This CT examination was performed using dose optimization techniques as appropriate, variously including the following: * Automated exposure control * Adjustment of mA and/or kV according to patient size (this includes techniques or standardized protocols for targeted exams where dose is matched to indication/reason for exam; i.e. extremities or head) Use of iterative reconstruction technique DLP: 762 mGy-cm FINDINGS: No acute osseous or soft tissue abnormality. The mastoid air cells and visualized portions of the paranasal sinuses are well aerated. There is no evidence of acute intracranial hemorrhage or territorial infarction. No abnormal mass effect or midline shift is seen. Bhakta to white matter differentiation is well preserved. No extra-axial fluid collections are identified. No hydrocephalus. CT/CT head/brain wo IV con IMPRESSION: 1. No acute intracranial abnormality.
[2023-06-29 09:32] VITALS: BP 146/78; PULSE 93; RESP 19; TEMP 36.6; O2SAT 96; BMI 45.9
[2023-06-29 09:45] VITALS: BP 149/89; PULSE 92; RESP 18; TEMP 36.8; O2SAT 97
[2023-06-29 09:59] LABS: MANUAL DIFF FLAG NO
--- NOTE | 2023-06-29 10:03 | PC.NURSE ---
pt a&ox3. respirations even and unlabored. pt reporting a headache in the back lower head that is radiating into the neck causing neck stiffness. pt reports headache has been constant for one week. pt reports 2 days ago she had a syncope episode with no head strike, after passing out the pt reports having tingling bilaterally in the upper extremities that has not subsided. pt reports pressure in the back of her eyes but denies blurriness or aura. pt reports nausea with no vomiting. pt denies chest pain, fever and chills. pt normal sinus on tele.
[2023-06-29 10:17] LABS: Basophils Percent Auto 0.4 % (0-2); Eosinophils Absolute Auto 0.3 X10*3/uL (0.0-0.4); Eosinophils Percent Auto 3.5 % (0-4); Hematocrit 42.5 % (37.0-47.0); Hemoglobin 14.9 g/dl (12.0-16.0); Imm Gran Abs Auto 0.04 X10*3/uL (0.00-0.03); Imm Gran Pct Auto 0.4 % (0.0-0.4); Lymphocytes Absolute Auto 2.5 X10*3/uL (1.2-4.9); Lymphocytes Percent Auto 27.2 % (20-40); Mean Corpuscular HGB Conc 35.1 g/dl (31.0-35.0); Mean Corpuscular Hemoglobin 30.8 pg (27.0-33.0); Mean Corpuscular Volume 87.8 fL (80.0-98.0); Mean Platelet Volume 9.2 fL (9.4-12.3); Monocytes Absolute Auto 0.6 X10*3/uL (0.1-1.2); Monocytes Percent Auto 6.5 % (2-11); Neutrophils Absolute Auto 5.6 x10*3/uL (2.0-8.3); Platelet Count 261 X10*3/uL (160-400); Red Blood Count 4.84 X10*6/uL (4.20-5.50)
--- NOTE | 2023-06-29 10:22 | ED_ITS ---
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 Patient reports intermittent ALLEN for 4 days, located to posterior head, worse in the evenings, radiating into the neck and shoulders. Currently rates it an 8/10. Finds temporary relief with Advil. Additionally reports intermittent slurred speech, stuttering and tingling down her upper extremities. Endorses some blurred vision and dizziness. States that 4 days ago she felt overheated while at a dinner and lost consciousness, falling over onto her boss. Denies head strike. Did not seek medical attention for this at the time. Not on anticoagulation. Denies fever, chills, double vision, vision loss, chest pain, SOB, abdominal pain, weakness, LE edema or pain. Related Data Home Medications Medication Instructions Recorded Confirmed glipizide 2.5 mg tablet, extended 1 tab PO BIDAC 06/28/22 01/07/23 release 24 hr insulin glargine 100 unit/mL (3 20 unit subcut BID 01/07/23 01/07/23 mL) subcutaneous pen (Lantus Solostar U-100 Insulin) prednisone 20 mg tablet 20 mg PO DAILY 01/07/23 01/07/23 Previous Rx's Medication Instructions Recorded albuterol sulfate 90 mcg/actuation 1 inh inhalation QID PRN shortness 10/29/21 aerosol inhaler of breath or wheezing #8.5 grams albuterol sulfate 0.63 mg/3 mL 0.63 mg (3 mL) inhalation QID PRN 07/03/22 solution for nebulization shortness of breath or wheezing #75 mL azithromycin 250 mg tablet See Rx Instructions PO .COMPLEX #6 01/07/23 (Zithromax Z-Yonatan) tabs prednisone 20 mg tablet 20 mg PO BID #10 tabs 01/07/23 ketorolac 10 mg tablet 10 mg PO Q8H 5 days #15 tabs 09/09/23 ondansetron 4 mg disintegrating 4 mg PO DAILY PRN nausea and 06/29/23 tablet vomiting 5 days #10 tabs Allergies Allergy/AdvReac Type Severity Reaction Status Date / Time Heparin Analogues Allergy Intermediate HIVES, Verified 06/29/23 09:32 [HEPARIN AGENTS] RASH, SEVERE BRUISING dulaglutide [From Trulicity] Allergy Rash Verified 06/29/23 09:32 Heparin Combination Allergy Unknown Hives Uncoded 06/29/23 09:32 Review of Systems 2 Review of Systems: Constitutional: No fever, No chills, No fatigue, No malaise, No weight loss, No night sweats ENT/Mouth: No ear pain, No hearing loss,? No nasal congestion, No sinus pain Eyes: No eye pain, No swelling, No redness, No vision changes, No foreign body, No discharge Cardio: No chest pain, No palpitations, No dyspnea on exertion, No orthopnea, No edema Respiratory: No SOB, No cough, No sputum, No wheezing, No dyspnea, No hemoptysis GI: No nausea, No vomiting, No hematemesis, No abdominal pain, No diarrhea, No constipation : No irregular bleeding, No dysuria, No frequency, No urgency, No hesitancy, No hematuria, No flank pain MSK: No back pain, + neck pain, No joint pain, No myalgias Skin: No skin lesions, No rashes Neuro: No weakness, No numbness, + paresthesias, + LOC, + dizziness, + headache Psych: No anxiety/panic, No depression, No SI/HI, No AH/VH Yes all other systems are reviewed and are negative PMFSH Past Medical History Attestation statement: The following information was validated with the patient. Source: old records reviewed and nursing notes reviewed Medical History DVT (deep venous thrombosis) Chiari malformation type II COVID-19 Asthma Diabetes Surgical History Hx of carpal tunnel repair Hx of tonsillectomy Hx of knee surgery Social History Social History Household Members: Family Housing: House Do you presently have visiting nurse or other home services: No Alcohol intake: never Patient Tobacco Use Status: Never used Tobacco Smoked in Last 30 Days: No Use of substances other than those prescribed or required for medical reasons: No Advance Directives: Yes Advance Directives on File: Yes Advance Directives Date on File: 06/29/22 service: No Current occupational status: employed Physical Exam 2 Vital Signs: Vital Signs: Last Vital Signs Temp 98.2 F 06/29/23 09:45 Pulse 83 06/29/23 11:00 Resp 18 06/29/23 11:00 BP 139/81 06/29/23 11:00 Pulse Ox 100 06/29/23 11:00 O2 Del Method Room Air 06/29/23 11:00 BMI result Body Mass Index 45.9 Vital signs stable. General: Nontoxic appearing. NAD. Obese. No slurred speech noted. Skin: Warm and dry. No rashes or lesions. Head: Normocephalic, atraumatic. EENT: EAC patent. Hearing is intact b/l. Conjunctiva clear. Sclera is anicteric. PERRLA. EOM intact. Moist mucous membranes. Neck: Supple without LAD. Normal ROM. Trachea midline.? Cardiac: Chest wall symmetric. Regular rate and rhythm. S1 and S1 appreciated. No MRG. No JVD. Lungs: CTA bilaterally. No rales, rhonchi, or wheezes. Normal respiratory effort without accessory muscle use. Abdomen: No visible lesions or scars. Soft, non-tender, non-distended. No rebound tenderness or guarding. Normoactive BS x4. No masses, hepatomegaly, or splenomegaly.? Spine: Paraspinal tenderness to palpation over the c spine. No midline spinous tenderness. Normal ROM. Ext: Upper and lower extremities atraumatic, without tenderness, deformity, swelling or erythema. Full ROM throughout. Strength 5/5 throughout. Capillary refill <2 seconds in all extremities. Pulses 2+ equal and bilateral. No edema, cyanosis, or clubbing. Neuro: Alert and oriented x3. Normal speech. CN 2-12 grossly intact. Strength 5/5 intact throughout.?No saddle anesthesia.?Sensation intact to light touch.? NV intact distally. Reflexes 2+ bilaterally. Normal finger to nose and heel to sadler. Ambulating with steady gait. Psych: Appropriate mood and affect. Responds appropriately to questions.? Course Course Course Narrative: 1115-- CBC without anemia or leukocytosis. Blood glucose noted to be 269 secondary to chronic diabetes, takes insulin at home, otherwise no acute electrolyte abnormalities requiring intervention. EKG with normal sinus rhythm, rate of 76 BPM, normal QT interval, no ischemic changes, no change when compared to priors. Troponin negative. 1130-- CT head without intracranial abnormalities. Orthostatics negative. Awaiting urine. 1317-- urine negative. Urine positive for bacteria however negative for nitrites, patient with out any urinary complaints > treatment not indicated. COVID negative. Inflammatory markers unremarkable. Patient's symptoms are consistent with migraine headache. Discussed results with patient. On re-evaluation patient is feeling much better after medication administration. Patient states that she is ready to go. Will send patient home with Toradol and Zofran. Patient agreeable with plan. All questions answered. Stable for discharge. Medications Administered Discontinued Medications Generic Name Dose Route Start Last Admin Trade Name Freq PRN Reason Stop Dose Admin Diphenhydramine HCl 50 mg 06/29/23 10:40 06/29/23 10:59 Diphenhydramine Hcl 50 Mg/Ml Vial IVPUSH 06/29/23 10:41 50 mg ONCE ONE Administration Ketorolac Tromethamine 15 mg 06/29/23 10:40 06/29/23 10:59 Ketorolac Tromethamine 15 Mg/Ml Vial IVPUSH 06/29/23 10:41 15 mg ONCE ONE Administration Metoclopramide HCl 10 mg 06/29/23 10:40 06/29/23 10:59 Metoclopramide Hcl 10 Mg/2 Ml Vial IVPUSH 06/29/23 10:41 10 mg ONCE ONE Administration Medical Decision Making Medical Decision Making MDM Narrative: 43 yo female with PMHx of 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 Vital signs stable. Nontoxic appearing in no acute distress. RRR. Lungs CTA bilaterally. Exam nonfocal. Cerebellar intact. Ambulating with steady gait. Clinical concern for headache vs migraine. Suspicion for arrhythmia vs orthostatic hypotension vs vasovagal vs vertigo. Low suspicion for ICH, CVA vs TIA, cereballar stroke. Unlikely ASC, dissection or seizure. Plan: labs, urine, pain control, imaging Differential Diagnosis Differential Diagnoses: The differential diagnosis associated with the presentation includes Clinical concern for headache vs migraine. Suspicion for arrhythmia vs orthostatic hypotension vs vasovagal vs vertigo. Low suspicion for ICH, CVA vs TIA, cereballar stroke. Unlikely ASC, dissection or seizure. Lab Data MDM Lab Attestation statement: I reviewed the patient's lab results. See above course narrative. 06/29/23 09:55 06/29/23 09:55 Labs: Lab Results 06/29/23 06/29/23 06/29/23 Range/Units 09:55 11:24 12:22 WBC 9.0 (4.8-10.8) X10*3/uL RBC 4.84 (4.20-5.50) X10*6/uL Hgb 14.9 (12.0-16.0) g/dl Hct 42.5 (37.0-47.0) % MCV 87.8 (80.0-98.0) fL MCH 30.8 (27.0-33.0) pg MCHC 35.1 H (31.0-35.0) g/dl RDW 12.0 (11.0-16.0) % Plt Count 261 (160-400) X10*3/uL MPV 9.2 L (9.4-12.3) fL Immature Gran % (Auto) 0.4 (0.0-0.4) % Neut % (Auto) 62.0 (45-73) % Lymph % (Auto) 27.2 (20-40) % [place] % (Auto) 6.5 (2-11) % Eos % (Auto) 3.5 (0-4) % Baso % (Auto) 0.4 (0-2) % Lymph # (Auto) 2.5 (1.2-4.9) X10*3/uL [place] # (Auto) 0.6 (0.1-1.2) X10*3/uL Eos # (Auto) 0.3 (0.0-0.4) X10*3/uL Baso # (Auto) 0.0 (0.0-0.2) X10*3/uL Abs Immat Gran (auto) 0.04 H (0.00-0.03) X10*3/uL Absolute Neuts (auto) 5.6 (2.0-8.3) x10*3/uL Absolute Nucleated RBC 0.000 (0.0-0.012) X10*3/uL Nucleated RBC % (auto) 0.0 (0.0-0.2) /100WBC ESR 20 (0-20) MM/HR Sodium 137 (135-145) mmol/L Potassium 4.0 (3.3-5.1) mmol/L Chloride 106 (96-108) mmol/L Carbon Dioxide 23 (22-29) mmol/L Anion Gap 12 (12-20) BUN 8 L (9-16) mg/dL Creatinine 0.67 (0.5-1.4) mg/dL Estim Creat Clear Calc 114.7 Estimated GFR > 60 Random Glucose 269 H (60-115) mg/dL Calcium 9.3 (8.4-10.2) mg/dL Total Bilirubin 1.0 (0.0-1.0) mg/dL AST 22 (5-31) U/L ALT 41 H (0-31) U/L Alkaline Phosphatase 70 (39-117) U/L C-Reactive Protein 0.56 H (< or = 0.50) mg/dL C-React Prot High Sens Cancelled Total Protein 7.0 (6.5-8.0) g/dL Albumin 4.0 (3.5-5.0) g/dL Urine Color Urine Appearance Urine pH (5.0-9.0) Ur Specific Garfield (1.005-1.025) Urine Protein (Neg-Trace) mg/dL Urine Glucose (UA) (Negative) mg/dL Urine Ketones (Negative) mg/dL Urine Blood (Negative) Urine Nitrite (Negative) Ur Leukocyte Esterase (Negative) Urine RBC (0-2) /HPF Urine WBC (0-5) /HPF Ur Squamous Epith Cells (0-2) /HPF Urine Bacteria (None Seen) Hyaline Casts (0-2) /LPF Urine Yeast Urine Test (NEGATIVE) COVID-19 (BRIAN) Negative (Negative) COVID-19 Clin Com See Note 06/29/23 Range/Units 13:06 WBC (4.8-10.8) X10*3/uL RBC (4.20-5.50) X10*6/uL Hgb (12.0-16.0) g/dl Hct (37.0-47.0) % MCV (80.0-98.0) fL MCH (27.0-33.0) pg MCHC (31.0-35.0) g/dl RDW (11.0-16.0) % Plt Count (160-400) X10*3/uL MPV (9.4-12.3) fL Immature Gran % (Auto) (0.0-0.4) % Neut % (Auto) (45-73) % Lymph % (Auto) (20-40) % [place] % (Auto) (2-11) % Eos % (Auto) (0-4) % Baso % (Auto) (0-2) % Lymph # (Auto) (1.2-4.9) X10*3/uL [place] # (Auto) (0.1-1.2) X10*3/uL Eos # (Auto) (0.0-0.4) X10*3/uL Baso # (Auto) (0.0-0.2) X10*3/uL Abs Immat Gran (auto) (0.00-0.03) X10*3/uL Absolute Neuts (auto) (2.0-8.3) x10*3/uL Absolute Nucleated RBC (0.0-0.012) X10*3/uL Nucleated RBC % (auto) (0.0-0.2) /100WBC ESR (0-20) MM/HR Sodium (135-145) mmol/L Potassium (3.3-5.1) mmol/L Chloride (96-108) mmol/L Carbon Dioxide (22-29) mmol/L Anion Gap (12-20) BUN (9-16) mg/dL Creatinine (0.5-1.4) mg/dL Estim Creat Clear Calc Estimated GFR Random Glucose (60-115) mg/dL Calcium (8.4-10.2) mg/dL Total Bilirubin (0.0-1.0) mg/dL AST (5-31) U/L ALT (0-31) U/L Alkaline Phosphatase (39-117) U/L C-Reactive Protein (< or = 0.50) mg/dL C-React Prot High Sens Total Protein (6.5-8.0) g/dL Albumin (3.5-5.0) g/dL Urine Color Yellow Urine Appearance Cloudy Urine pH 5.5 (5.0-9.0) Ur Specific Garfield >= 1.030 H (1.005-1.025) Urine Protein Negative (Neg-Trace) mg/dL Urine Glucose (UA) >=1000 H (Negative) mg/dL Urine Ketones 15 (Negative) mg/dL Urine Blood Negative (Negative) Urine Nitrite Negative (Negative) Ur Leukocyte Esterase Negative (Negative) Urine RBC 0-2 (0-2) /HPF Urine WBC 6-10 H (0-5) /HPF Ur Squamous Epith Cells 0-2 (0-2) /HPF Urine Bacteria 2+ (None Seen) Hyaline Casts 0-2 (0-2) /LPF Urine Yeast Present Urine Test NEGATIVE (NEGATIVE) COVID-19 (BRIAN) (Negative) COVID-19 Clin Com Independent Interpretation I performed an independent interpretation of an: EKG (normal sinus rhythm, rate of 76 BPM, normal QT interval, no ischemic changes, no change when compared to priors.) and CT Scan Radiology Impression Discussion of test interpretation with radiology: I have reviewed the radiologist's reading. Radiologist Impression: CT head/brain wo IV conIMPRESSION: 1. No acute intracranial abnormality. External Record Review External record reviewed: Inpatient record Prescription Management I considered prescription management with: Pain Medication and Other (Anti emetic) Chronic Conditions Patient?s care impacted by: Diabetes and Other (chiari malformation) Core Measures AMI core measures followed: Yes Measure exclusions: not indicated Discharge Plan Discharge Clinical Impression: Migraine Patient Disposition: Home, Self-Care Instructions: Migraine Headache (ED) Additional Instructions: Your lab workup today was reassuring. Your urine was negative for infection and . The CT of your head did not show any acute pathology. You orthostatic vitals were negative. Your symptoms are most consistent with a migraine headache. Toradol is an anti-inflammatory pain reliever that has been sent to your pharmacy. He received 1 dose in the ED today. Take this as needed for headache. Take with food. Zofran is an antinausea medication. This has been sent to your pharmacy as well. Take this as needed for any nausea associated with her migraine. Please follow-up with your primary care physician as needed. A referral for Neurology has been provided here. Please return to the emergency department for worsening signs and symptoms. Prescriptions: New ondansetron 4 mg tablet,disintegrating 4 mg PO DAILY PRN (Reason: nausea and vomiting) 5 Days Qty: 10 0RF ketorolac 10 mg tablet 10 mg PO Q8H 5 Days Qty: 15 0RF Rx Instructions: Tolerated in ED. No Action albuterol sulfate 90 mcg/actuation HFA aerosol inhaler 1 inh inhalation QID PRN (Reason: shortness of breath or wheezing) Qty: 8.5 0RF glipizide 2.5 mg tablet extended release 24hr 1 tab PO BIDAC albuterol sulfate 0.63 mg/3 mL solution for nebulization 0.63 mg inhalation QID PRN (Reason: shortness of breath or wheezing) Qty: 75 0RF insulin glargine [Lantus Solostar U-100 Insulin] 100 unit/mL (3 mL) insulin pen 20 unit subcut BID prednisone 20 mg tablet 20 mg PO DAILY Rx Instructions: pt had 2 days treatment remaining (01/07 and 01/08 prednisone 20 mg tablet 20 mg PO BID Qty: 10 0RF azithromycin [Zithromax Z-Yonatan] 250 mg tablet See Rx Instructions .ROUTE .COMPLEX Qty: 6 0RF Rx Instructions: For 250 mg dose pack: take 500 mg today (day 1), then 250 mg for 4 days (days 2-5) Referrals: [facility] [place] [place] Group] Jonna Carvalho MD [Primary Care Provider] - Interventions: ED Discharge Assessment Last Done: 06/29/23 13:52 Discharge Date/Time: 06/29/23 13:53
[2023-06-29 10:27] LABS: Alanine Aminotransferase 41 U/L (0-31); Alkaline Phosphatase 70 U/L (39-117); Anion Gap 12 (12-20); Aspartate Amino Transferase 22 U/L (5-31); Blood Urea Nitrogen 8 mg/dL (9-16); Calcium 9.3 mg/dL (8.4-10.2); Carbon Dioxide 23 mmol/L (22-29); Chloride 106 mmol/L (96-108); Creatinine Clr Calc Pharmacy 114.7; Estimated Glomerular Filt Rate > 60; Glucose Random 269 mg/dL (60-115); Sodium 137 mmol/L (135-145)
--- NOTE | 2023-06-29 10:34 | ECG_ITS ---
Test Reason : SYNCOPE Blood Pressure : / mmHG Vent. Rate : 076 BPM Atrial Rate : 076 BPM P-R Int : 134 ms QRS Dur : 078 ms QT Int : 392 ms P-R-T Axes : 034 002 032 degrees QTc Int : 441 ms Normal sinus rhythm Normal ECG When compared with ECG of 28-JUN-2022 14:25, Heart rate has decreased Referred By: Alexandra Joe Electronically Signed By:SWEETIE NICHOLSON
[2023-06-29 10:54] VITALS: BP 134/74; PULSE 77
[2023-06-29 10:56] VITALS: BP 130/77; PULSE 84
[2023-06-29 10:57] VITALS: BP 139/81; PULSE 94
[2023-06-29] MEDS: Ketorolac Tromethamine 15 MG/ML VIAL IVPUSH (10:59)
[2023-06-29] MEDS: Metoclopramide HCl 10 MG/2 ML VIAL IVPUSH (10:59)
[2023-06-29] MEDS: diphenhydrAMINE HCL 50 MG/ML VIAL IVPUSH (10:59)
[2023-06-29 11:00] VITALS: BP 139/81; PULSE 83; RESP 18; O2SAT 100
[2023-06-29 12:13] LABS: Erythrocyte Sedimentation Rate 20 MM/HR (0-20)
[2023-06-29 13:15] LABS: Appearance Urine Cloudy; Color Urine Yellow; Glucose Urine UA >=1000 mg/dL (Negative); Leukocyte Esterase Urine Negative (Negative); Nitrite Urine Negative (Negative); PH 5.5 (5.0-9.0); Specific Gravity - Urine >= 1.030 (1.005-1.025); UMIC TRIGGER UACC YES; UPreg QC Valid YES; Urine Blood Negative (Negative); Urine Ketones 15 mg/dL (Negative); Urine Pregnancy NEGATIVE (NEGATIVE); Urine Protein Negative (Neg-Trace)
[2023-06-29 13:19] LABS: COVID-19 Test Negative (Negative); IDNOW Serial# BCCEAD1C
[2023-06-29 13:31] LABS: Bacteria Urine 2+ (None Seen); Hyaline Casts Urine 0-2 /LPF (0-2); RBC Urine 0-2 /HPF (0-2); Squamous Epithelial Cell Urine 0-2 /HPF (0-2); UACC Culture Trigger YES
[2023-06-29 14:25] LABS: C Reactive Protein 0.56 mg/dL (< or = 0.50)
== END 2023-06-29 13:53 | disposition home or self-care (01) ==
PROVIDERS: Physician Assistant Medical; Emergency Provider Emergency Medicine; PCP Internal Medicine
DX: G43.909 Migraine, unspecified, not intractable, without status migrainosus (principal); Z20.822 Contact with and (suspected) exposure to COVID-19; E11.9 Type 2 diabetes mellitus without complications; J45.909 Unspecified asthma, uncomplicated; Z86.718 Personal history of other venous thrombosis and embolism; Z79.4 Long term (current) use of insulin; Z79.899 Other long term (current) drug therapy
CPT/HCPCS: 36415; 70450; 80053; 81001; 81025; 85025; 85652; 86140; 86141; 87086; 87635; 93005; 96374; 96375; 99284; 99285; J1200; J1885; J2765

== ENCOUNTER 2023-08-12 13:16 | Outpatient (AMB) | payer BC, SELFPAY ==
--- NOTE | 2023-08-12 13:22 | A.OFFVIS_ITS ---
Intake Vital Signs 08/12/23 13:23 Height 4 ft 11 in Weight 224 lb 8 oz BMI 45.3 BP 118/88 Blood Pressure Location Rt brachial Position Sitting Intake Visit Reasons: ENP-Dizziness,Headaches,sensitivity sound light Intake Note: Patient presents for dizziness, headaches. patient states My headaches started in June they are very consistent since, blur vision and extreme dizziness. I also had delayed and slurred speech for 3 weeks. Allergies Heparin Analogues [HEPARIN AGENTS] Allergy (Intermediate, Verified 08/12/23 13:28) HIVES, RASH, SEVERE BRUISING dulaglutide [From Trulicity] Allergy (Verified 08/12/23 13:28) Rash Heparin Combination Allergy (Unknown, Uncoded 08/12/23 13:28) Hives Medication List - Last Reconciled 08/22/23 by JASWANT Motta albuterol sulfate 0.63 mg (3 mL) inhalation QID PRN albuterol sulfate 90 mcg/actuation 1 inh inhalation QID PRN amitriptyline 10 - 30 mg (1 - 3 x 10 mg) PO BEDTIME 30 days azithromycin (Zithromax Z-Yonatan) For 250 mg dose pack: take 500 mg today (day 1), then 250 mg for 4 days (days 2-5) rhkdlzsqva-tdwvhkxwndlug-beqy 50-325-40 mg 1 - 2 caps PO Q4-6H PRN 7 days cyclobenzaprine 10 mg PO BEDTIME gabapentin 100 mg PO BID glipizide ER 1 tab PO BIDAC insulin glargine (Lantus Solostar U-100 Insulin) 20 units subcut BID ketorolac 10 mg PO Q8H 5 days magnesium oxide 400 mg PO BEDTIME 30 days ondansetron 4 mg PO DAILY PRN 5 days prednisone 20 mg PO DAILY prednisone 20 mg PO BID riboflavin (vitamin B2) 400 mg PO DAILY 30 days sumatriptan succinate 50 - 100 mg orally at onset of headache, may repeat in 2 hrs PRN; max 2 tabs per day or 4 tabs/week (may take with Ibuprofen) 30 days HPI HPI Comments History of Present Illness Details Right-handed 43-yr-old female presents for new pt evaluation of new onset daily headache.. Pt reports she does not have a strong history of migraine or headache- just an occasional headache. She was confirmed to have a Chiari I malformation when she was 25 yo- was checked as her mother also has a Chiari I malformation. Pt reports on Jun 24 2023, she drove for a day trip to [facility]. Then on Jun 25 2023, pt reports she started not feeling well. She had dizziness, brain fog, delayed speech, fatigue x's 3 days. Then on Jun 29, pt states everything got worse, more slurring speech. She also had headache- unclear exactly which day this presented. Since, she had near non-stop headache, however the slurred speech has slowly improved. She did have evaluation at [facility]. Work-up was non-diagnostic. She was then seen by Dr Dowells for post-hospital f/u, where she was tx'd w/ Bilateral ON blocks, which pt sttaes was not effective. Denies any preceding fever, infection, neck injury. Headache questionnaire: Work-up: 08/08/2023?, Cervical Spine 4 or 5 Views Cervical Spine 4 or 5 Views Reason: Pain COMPARISON: None. FINDINGS: No evidence of fracture or dislocation. Mild bilateral foraminal stenosis at C3-C4 and C4-C5. IMPRESSION: Mild degenerative changes in the cervical spine are outlined above 07/06/2023, Brain MRI w/wo, IMPRESSION: 1. No evidence of acute/subacute infarction, mass effect, or abnormal enhancement. 2. Borderline low cerebellar tonsils with slight crowding at the foramen magnum but without compression of the cervicomedullary junction. The appearance is unchanged compared to the MRI from 10 years ago. 3. A few scattered foci of nonspecific T2 signal abnormality are seen in the supratentorial white matter. Typical headache characteristics: Prodrome symptoms? Unsure Aura? Denies visual aura Location, quality, characteristics? Bilateral occipital, neck pain, and at times bitomporal. The pain has been throbbing, but 4 days ago, the pain has become stabbing pain. Pain intensity? Severe Associated symptoms? Blurry vision, Photophobia, more so phonophobia, tinnitus, intense nausea, vomiting x's 1, chills, allodynia, brain fog, dizziness- feels overly drugged (even w/o medication). Focal weakness, Parethesias, Autonomic s/s? Right sided swelling. BUE nu mbness/tingling. No weakness. No rhinorrhea. Postdrome? Unsure Triggers? Any positional, valsalva, exertional, sexual activity triggers? Sitting up for long worsens the headaches, laying down helps. Menstrual triggers? none- on an IUD Time of day? Better in the am. Worse in the afternoon and into the evening/night. Duration? Near constant Frequency? Near constant How does headache impact your life? She has not been able to work on [employer]- light duty. 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 Current acute medication use/interventions: Cyclobenzaprine- as needed- not always effective. Previous acute medication use: Tylenol- ineffective. Excedrin- ineffective Current preventative medication use: Gebapentin 100mg bid- was increased from qd to bid- but ahs not helped. Previous preventative medication use: None Non-pharmacological interventions: Trigger point injection- not helpful. Ice- helps some. Heat- ineffective. History of musculoskeletal disorders or injury? No h/o neck injuries History of concussion/head injury? None History of mood disorder? No history. History of sleep disorder? Has chronic h/o poor sleep- has a h/o RACHAEL, did not tolerate d/t asthma s/s and the humidification. states she does not snore as bad since hse had some weight loss. History of respiratory disease? asthma History of CV disease? None History of coagulopathy? Has a h/o meniscus root repair post-op RLE DVT x's 3 History of endocrine or metabolic disease? Diabetes- recent HgA1C was 9%. History of seizure? None History of GI disorder? Constiptaion- recently d/t med use Family planning? None Family history of migraine or other headache disorder? Her motehr has headaches and vertigo. [facility] Medical History DVT (deep venous thrombosis) Chiari malformation type II COVID-19 Asthma Diabetes Surgical History Hx of carpal tunnel repair Hx of tonsillectomy Hx of knee surgery Social History Household Members: Family Housing: House Do you presently have visiting nurse or other home services: No Alcohol intake: never Patient Tobacco Use Status: Never used Tobacco Advance Directives Date on File: 06/29/22 service: No Current occupational status: employed Review of Systems Const Details: See scanned ROS form Physical Exam Vital Signs: Last Vital Signs BP 118/88 08/12/23 13:23 BMI result Body Mass Index 45.3 Const Orientation/consciousness: patient oriented x3 HEENT Other: No palpable scalp tenderness. Head: Yes normocephalic Resp Effort & Inspection: normal respiratory effort and able to speak in complete sentences Neuro General: patient oriented x3 Cranial nerves: Yes CN's II-XII intact bilaterally Cognition (Neuro): normal cognition Gait exam (Neuro): Normal gait present Motor exam (neuro): 5/5 motor strength present throughout Deep tendon reflexes (DTR's): Right triceps reflex intensity grade: 2+, Left triceps reflex intensity grade: 2+, Rt Biceps (C5, C6): 2+, Left biceps reflex intensity grade: 2+, Right brachioradialis reflex intensity grade: 2+, Left brachioradialis reflex intensity grade: 2+, Right patellar reflex intensity grade: 2+ and Left patellar reflex intensity grade: 2+ Coordination: uavaud-uj-esmg test normal, tandem gait normal and Romberg test negative Pupils: Normal pupillary reactivity/response: bilateral Psych Appearance: grossly normal Mental Status: mental status grossly normal Speech and movement: Normal speech and movement present Affect: normal affect Attitude: cooperative Thought process: Normal thought process present Assessment & Plan Assessment & Plan (1) Snoring: Code(s): R06.83 - Snoring (2) Excessive daytime sleepiness: Code(s): G47.19 - Other hypersomnia (3) Sleep difficulties: Code(s): G47.9 - Sleep disorder, unspecified (4) BMI 45.0-49.9, adult: Code(s): Z68.42 - Body mass index [BMI] 45.0-49.9, adult (5) Positional headache: Code(s): R51.0 - Headache with orthostatic component, not elsewhere classified (6) Worsening headaches: Code(s): R51.9 - Headache, unspecified (7) Tingling of both upper extremities: Code(s): R20.2 - Paresthesia of skin (8) Chiari I malformation: Code(s): G93.5 - Compression of brain Plan Pt advised to undergo HST to assess for sleep apnea Pt advised to undergo brain MRI to assess for secondary causes of positional headache Pt advised to undergo LP to assess OP and CSF studies- d/t positional headache. Reviewed risks/benefits. Reviewed post-LP care- including rets, fluids, caff eine, will sent short supply of prn Fioricet. For overall headache management: Discussed importance of good self-care, including but not limited to maintaining a healthy diet, adequate fluid intake, adequate sleep, and engaging in regular physical activity. For headache triggers: Track headaches, especially after any treatment regimen changes. Migraine [employer] is one of many headache tracking apps. For acute headache treatment: Discussed importance of taking acute medications at the first sign of headache, however stressed importance of avoiding acute medication overuse (especially with combined headache medications). May use Cyclobenzaprine 10mg qhs prn. Trial Sumatriptan 100mg tab, 1/2 - 1 tab (50-100mg) at onset of headache, may repeat in 2 hours. Max of 2 tabs (200mg) per 24 hours. May adjunct with OTC Tylenol 650mg q 4 hours, Ibuprofen 600mg q 6 hours, or Naproxen 440mg q 12 hrs prn. Reviewed potential adverse effects of triptans, including but not limited to nausea, fatigue, chest tightness/tingling (usually passes within a few minutes), medication overuse headaches. Previous acute migraine medication trials: Tylenol- ineffective. Excedrin- ineffective Acute migraine medication contraindications: None at this time For headache prevention medication: Discussed that preventative medications should be taken routinely as prescribed for best effect, it may take several weeks for full effect to take effect. Start Riboflavin 400mg qam Start Magnesium 400mg qhs Start Amitriptyline 10-30mg qhs Reviewed potential adverse effects of TCAs, including but not limited to fati amada, mood changes. Previous migraine prevention medication trials: Gabapentin- ineffective Migraine prevention medication contraindications: BBs d/t asthma dx Pt should coninue to work in light duty capacity through f/u here. Pt to follow-up in 3 months or sooner prn. Orders: Orders RT PSG in-lab sleep study 08/13/23 R06.83 - Snoring, G47.19 - Other hypersomnia, G47.9 - Sleep disorder, unspecified, Z68.42 - Body mass index [BMI] 45.0-49.9, adult Medications: New sumatriptan succinate 50 - 100 mg orally at onset of headache, may repeat in 2 hrs PRN; max 2 tabs per day or 4 tabs/week (may take with Ibuprofen) 12 tabs 6RF migraine headache 30 days riboflavin (vitamin B2) 400 mg PO DAILY 30 tabs 6RF 30 days magnesium oxide may hold for loose stools 400 mg PO BEDTIME 30 tabs 6RF 30 days amitriptyline 10 - 30 mg (1 - 3 x 10 mg) PO BEDTIME 90 tabs 3RF 30 days fktrihwazh-dapforlafpksn-dwii 50-325-40 mg for post-LP headache headache (max 6 caps per day) 1 - 2 caps PO Q4-6H PRN 24 caps 2RF headache 7 days Coding Level of Care Code New Pt Level 4 (77035) Diagnoses Snoring R06.83 Excessive daytime sleepiness G47.19 Sleep difficulties G47.9 BMI 45.0-49.9, adult Z68.42 Positional headache R51.0 Worsening headaches R51.9 Tingling of both upper extremities R20.2 Chiari I malformation G93.5
[2023-08-12 13:23] VITALS: BP 118/88; BMI 45.3
== END 2023-08-12 14:49 | disposition home or self-care (01) ==
PROVIDERS: PCP Internal Medicine; Visit Provider Nurse Practitioner Family
DX: R06.83 Snoring (principal); G47.19 Other hypersomnia; G47.9 Sleep disorder, unspecified; Z68.42 Body mass index [BMI] 45.0-49.9, adult; R51.0 Headache with orthostatic component, not elsewhere classified; R51.9 Headache, unspecified; R20.2 Paresthesia of skin; G93.5 Compression of brain
CPT/HCPCS: 99204

== ENCOUNTER → 2023-08-12 13:16 | Outpatient (BNVA) | payer BC, SELFPAY | PROVIDERS: PCP Internal Medicine; Visit Provider Nurse Practitioner Family ==

== ENCOUNTER 2023-09-10 09:34 | Day surgery (SDC) | payer BC, SELFPAY ==
--- NOTE | ~2023-09-10 | FL_ITS ---
FLUOROSCOPIC LUMBAR PUNCTURE INDICATION: Headache with orthostatic component Risks and benefits and possible complications were discussed with the patient and the consent form was signed. Patient was placed prone on the fluoroscopy table. The back was prepped and draped in routine sterile fashion. Betadine was used as a skin antiseptic. Utilizing fluoroscopic guidance, the L2-3 interlaminar space was accessed with a 22 gauge quinkie spinal needle and clear CSF fluid passively obtained. Opening pressure was 33 cm. 8 cc of fluid was sent for analysis. The needle was removed without immediate complications. Total fluoroscopy time: 1.1 min FL/FL guided lumbar puncture LP IMPRESSION: Fluoroscopic lumbar puncture This procedure was performed by Tha Workman PA-C and supervised by Dr. Yu.
[2023-09-10 10:02] VITALS: BMI 46.1
[2023-09-10 10:04] LABS: Prothrombin Time 11.8 SEC (11.1-13.3)
[2023-09-10 10:05] LABS: UPreg QC Valid YES; Urine Pregnancy NEGATIVE (NEGATIVE)
[2023-09-10 10:06] LABS: Partial Thromboplastin Time 32.1 SEC (26.0-36.4)
[2023-09-10 10:15] LABS: Glucose, Whole Blood 210 mg/dL (60-115)
[2023-09-10 12:30] VITALS: BP 131/89; PULSE 79; RESP 18; TEMP 36.6; O2SAT 97
[2023-09-10 12:45] VITALS: BP 119/66; PULSE 86; RESP 17; O2SAT 98
[2023-09-10 13:00] VITALS: BP 119/66; PULSE 87; RESP 18; O2SAT 97
[2023-09-10 13:15] VITALS: BP 112/66; PULSE 89; RESP 18; TEMP 36.2; O2SAT 98
[2023-09-10 13:39] LABS: Glucose CSF 106 mg/dL; Total Protein CSF 25.1 mg/dL (15-45)
[2023-09-10 13:44] LABS: CSF Appearance Clear, Colorless; CSF Tube # 1
[2023-09-10 14:38] LABS: Appearance CSF CLEAR; CSF Tube # 1; Color CSF COLORLESS; Red Blood Cell CSF 12 MM*3; White Blood Cell CSF 0 MM*3
[2023-09-10 14:39] LABS: Appearance CSF CLEAR; CSF Tube # 4; CSF Volume 2.5 ML
[2023-09-10 14:40] LABS: Color CSF COLORLESS; Red Blood Cell CSF 8 MM*3; White Blood Cell CSF 0 MM*3
[2023-09-10 15:01] LABS: Cryptococcus neoformans/gattii Not Detected (Not Detect.); Enterovirus Not Detected (Not Detect.); Escherichia coli K1 Not Detected (Not Detect.); Haemophilus influenzae Not Detected (Not Detect.); Herpes simplex virus 1 Not Detected (Not Detect.); Herpes simplex virus 2 Not Detected (Not Detect.); Human herpesvirus 6 Not Detected (Not Detect.); Human parechovirus Not Detected (Not Detect.); Listeria monocytogenes Not Detected (Not Detect.); Neisseria meningitidis Not Detected (Not Detect.); Streptococcus agalactiae Not Detected (Not Detect.); Streptococcus pneumoniae Not Detected (Not Detect.); Varicella zoster virus Not Detected (Not Detect.)
[2023-09-13 22:09] LABS: IgG 775 mg/dL (600-1640); IgG Synthesis Rate -4.2 mg/24 h (-9.9-3.3); IgG, CSF 0.9 mg/dL (0.8-7.7)
[2023-09-14 17:59] LABS: Lyme IgG CSF Immunoblot NO BANDS DETECTED; Lyme IgM CSF Immunoblot NO BANDS DETECTED
== END 2023-09-10 13:23 | disposition home or self-care (01) ==
PROVIDERS: Orthopaedic Surgery; Physician Assistant Surgical; Radiology Vascular & Interventional Radiology; PCP Internal Medicine; Visit Provider Nurse Practitioner Family
PROC: 009U3ZZ Drainage of Spinal Canal, Percutaneous Approach (ICD-10-PCS; CPT 62270; principal; 2023-09-10 11:00)
DX: R51.0 Headache with orthostatic component, not elsewhere classified (principal); R51.9 Headache, unspecified; G93.5 Compression of brain; R20.2 Paresthesia of skin; H53.8 Other visual disturbances; G47.19 Other hypersomnia; J45.909 Unspecified asthma, uncomplicated; R42 Dizziness and giddiness; G47.9 Sleep disorder, unspecified; G47.33 Obstructive sleep apnea (adult) (pediatric); R06.83 Snoring; E11.9 Type 2 diabetes mellitus without complications; Z86.718 Personal history of other venous thrombosis and embolism; Z79.4 Long term (current) use of insulin; Z79.84 Long term (current) use of oral hypoglycemic drugs; Z79.899 Other long term (current) drug therapy; Z79.52 Long term (current) use of systemic steroids; Z88.8 Allergy status to other drugs, medicaments and biological substances; Z98.890 Other specified postprocedural states; Z86.16 Personal history of COVID-19
CPT/HCPCS: 36415; 62328; 81025; 82042; 82945; 82947; 84157; 85610; 85730; 86617; 87015; 87070; 87205; 87483; 89051

== ENCOUNTER → 2023-09-10 10:43 | Outpatient (BNV) | payer BC, SELFPAY | PROVIDERS: PCP Internal Medicine; Visit Provider Radiology Diagnostic Radiology | DX: R51.9 Headache, unspecified (principal) | CPT/HCPCS: 62328 ==

== ENCOUNTER → 2023-09-19 19:30 | Outpatient (REF) | payer BC, SELFPAY | LOC: HO.SL 19:30 | PROVIDERS: PCP Internal Medicine; Visit Provider Nurse Practitioner Family | DX: G47.33 Obstructive sleep apnea (adult) (pediatric) (principal); R06.83 Snoring; G47.19 Other hypersomnia | CPT/HCPCS: 95810 ==

== ENCOUNTER → 2023-09-19 21:04 | Outpatient (BNV) | payer BC, SELFPAY | PROVIDERS: PCP Internal Medicine; Visit Provider Psychiatry & Neurology Neurology | DX: G47.33 Obstructive sleep apnea (adult) (pediatric) (principal) | CPT/HCPCS: 95810 ==

== ENCOUNTER 2023-10-01 19:41 | Outpatient (REF) | payer BC, SELFPAY ==
--- NOTE | ~2023-10-01 | MR_ITS ---
EXAMINATION: MR ANGIOGRAPHY BRAIN WITHOUT CONTRAST CLINICAL INFORMATION: Headaches with orthostatic component. COMPARISON: None available. TECHNIQUE: 3-D [id number] MR angiography of the [place] acquired. FINDINGS: The vertebrobasilar vasculature is normal. The internal carotid arteries are widely patent. The JYOTHI, MCA, and LEAD TECHNOLOGIST [employer] vascular complexes are normal. No aneurysm or vascular malformation is seen. The imaged extracranial vasculature appears normal. MR/MR angio head wo con IMPRESSION: Normal MRA of the head.
== END 2023-10-01 19:42 | disposition home or self-care (01) ==
LOC: HO.MRI 19:41
PROVIDERS: PCP Internal Medicine; Visit Provider Nurse Practitioner Family
DX: G40.109 Localization-related (focal) (partial) symptomatic epilepsy and epileptic syndromes with simple partial seizures, not intractable, without status epilepticus (principal); R51.0 Headache with orthostatic component, not elsewhere classified; R20.2 Paresthesia of skin; G93.5 Compression of brain
CPT/HCPCS: 70544

== ENCOUNTER 2023-10-25 11:02 | Outpatient (REF) | payer BC, SELFPAY | END 2023-10-25 11:03 | disposition home or self-care (01) | LOC: HO.MRI 11:02 | PROVIDERS: PCP Internal Medicine; Visit Provider Nurse Practitioner Family | DX: G93.2 Benign intracranial hypertension (principal); G93.5 Compression of brain; G40.109 Localization-related (focal) (partial) symptomatic epilepsy and epileptic syndromes with simple partial seizures, not intractable, without status epilepticus; R51.0 Headache with orthostatic component, not elsewhere classified | CPT/HCPCS: 70546; A9585 ==

== ENCOUNTER 2023-10-29 08:34 | Outpatient (AMB) | payer BC, SELFPAY ==
--- NOTE | 2023-10-29 08:47 | A.OFFVIS_ITS ---
Intake Vital Signs 10/29/23 08:52 BP 124/80 Blood Pressure Location Rt brachial Position Sitting Intake Visit Reasons: 4m f/u Dizziness,Headaches,sensitivity sound light Intake Note: Patient presents for 4 month follow up dizziness, headaches. patient states still the same, maybe 15 percent improvement Allergies Heparin Analogues [HEPARIN AGENTS] Allergy (Intermediate, Verified 10/29/23 08:50) HIVES, RASH, SEVERE BRUISING dulaglutide [From Trulicity] Allergy (Verified 10/29/23 08:50) Rash Heparin Combination Allergy (Unknown, Uncoded 10/29/23 08:50) Hives Medication List - Last Reconciled 10/29/23 by JASWANT Motta acetazolamide 125 mg PO TID 30 days albuterol sulfate 0.63 mg (3 mL) inhalation QID PRN albuterol sulfate 90 mcg/actuation 1 inh inhalation QID PRN alprazolam 0.25 mg orally 1 tab 30 minutes prior to MRI, may repeat x's 1; 1 day amakcnwavc-wcvwgnriisvzl-ibmk 50-325-40 mg 1 - 2 caps PO Q4-6H PRN 7 days cyclobenzaprine 10 mg PO BEDTIME gabapentin 100 mg PO BID galcanezumab-gnlm (Emgality Pen) 120 mg subcut ONCE 30 days glipizide ER 1 tab PO BIDAC insulin glargine (Lantus Solostar U-100 Insulin) 20 units subcut BID ketorolac 10 mg PO Q8H 5 days lorazepam 1-2 tab 30 min prior to MRI, may repeat x's 1 orally PRN; magnesium oxide 400 mg PO BEDTIME 30 days ondansetron 4 mg PO DAILY PRN 5 days riboflavin (vitamin B2) 400 mg PO DAILY 30 days semaglutide (Ozempic) mg subcut semaglutide (Ozempic) mg subcut sumatriptan succinate 50 - 100 mg orally at onset of headache, may repeat in 2 hrs PRN; max 2 tabs per day or 4 tabs/week (may take with Ibuprofen) 30 days topiramate 25 - 50 mg (1 - 2 x 25 mg) PO BEDTIME 30 days HPI HPI Comments History of Present Illness Details 43-yr-old female presents for f/u visit, accompanied by her family. Since the last visit, pt has has further neuro work-up, which was notable for Elevated CSF opening pressure on LP with normal eye exam, brain MRA, brain MRV, and CSF studies. In-lab PSG shoewed mild RACHAEL w/ nocturnal hypoxemia- an order was placed for APAP- pt has just rec'd a call to make an appt to receive it. After review of LP, pt did have an initial reduction in ALLEN. Pt then started Acetazolamide which she is tolerating well, but does cause urinary frequency. Amitriptyline dose was increased but ineffective, and was changed to topiramate 25-50mg qhs, and was also started Emgality to help w/ headache/migraine s/s. Pt is till having daily headache, brain fog, room spinning or not right in space dizziness, nausea, osmophobia, photophobia, phonophobia, allodynia. The headache is better when laying down, worse when up and about. Has some high-pitched tinnitus. Denies whooshing tinnitus. No vision changes. Feels she is not as cognitively sharp. Is frustrated that she is not back to her usual state of health yet- used to being busy/active. The headache is not as constant. She is overall more nauseous, not eating well. She is still not working, barely can leave the house. She is compliant w/: Acetazolamide 125mg tid B2 and Mag Topiramate 50mg qhs Emgality- took the loading dose 10/09/23 She has also resumed her ozempic, and is compliant w/ her diabetes regimen. Sumatriptan- tried was ineffective. Work-up: 10/25/23, MR/MR venography head wo/w con IMPRESSION: No cerebral venous thrombosis. Unremarkable MRV of the head. 10/01/23, MR/MR angio head wo con IMPRESSION: Normal MRA of the head. 09/20/23, In-lab PSG- AHI 9/hr, REM AHI 3 7/hr, O2 william 79% 09/15/23, Eye Exam, [facility] [place] Bilateral eye- no papilledema 09/10/23, Lumbar Puncture: Opening pressure was 33 cm 08/08/2023?, Cervical Spine 4 or 5 Views Cervical Spine 4 or 5 Views Reason: Pain COMPARISON: None. FINDINGS: No evidence of fracture or dislocation. Mild bilateral foraminal stenosis at C3-C4 and C4-C5. IMPRESSION: Mild degenerative changes in the cervical spine are outlined above 07/06/2023, Brain MRI w/wo,IMPRESSION: 1 . No evidence of acute/subacute infarction, mass effect, or abnormal enhancement. 2. Borderline low cerebellar tonsils with slight crowding at the foramen magnum but without compression of the cervicomedullary junction. The appearance is unchanged compared to the MRI from 10 years ago. 3. A few scattered foci of nonspecific T2 signal abnormality are seen in the supratentorial white matter. Last Resulted Lab Tests 09/10/23 12:18 CSF Tube Number 4 CSF Volume 2.5 CSF Appearance CLEAR CSF Color COLORLESS CSF WBC 0 CSF RBC 8 CSF Appearance (b) Clear, Colorless CSF Glucose 106 CSF Total Protein 25.1 CSF Albumin 13.0 CSF IgG Index 0.36 CSF IgG Synthesis Rate -4.2 CSF/Serum IgG Inde x 0.9 CSF Lyme IgG (Immb lot) NO BANDS DETECTED CSF Lyme IgG Bands Det TNP CSF Lyme IgM (Immb lot) NO BANDS DETECTED CSF C.neoform/gat PCR Not Detected CSF CMV DNA (PCR) Not Detected CSF Enterovirus (P CR) Not Detected CSF E. coli K1 (PC R) Not Detected CSF H. influenzae (PCR) Not Detected CSF HSV I (PCR) Not Detected CSF HSV II (PCR) Not Detected CSF HHV 6 (PCR) Not Detected CSF L.monocytogene s PCR Not Detected CSF N. meningitidi s PCR Not Detected CSF Parechovirus ( PCR) Not Detected CSF S. agalactiae (PCR) Not Detected CSF S. pneumoniae (PCR) Not Detected CSF VZV (PCR) Not Detected PFSH Medical History (Updated 10/29/23 @ 20:55 by JASWANT Motta) DVT (deep venous thrombosis) Chiari malformation type II COVID-19 Asthma Diabetes Surgical History [place] teeth extracted Hx of carpal tunnel repair Hx of tonsillectomy Hx of knee surgery Social History Household Members: Family Housing: House Do you presently have visiting nurse or other home services: No Alcohol intake: never Patient Tobacco Use Status: Never used Tobacco Advance Directives Date on File: 06/29/22 service: No Current occupational status: employed Review of Systems Const All systems reviewed & are unremarkable except as noted in HPI and below Physical Exam Vital Signs: Last Vital Signs BP 124/80 10/29/23 08:52 Const General: cooperative and no acute distress Orientation/consciousness: patient oriented x3 HEENT Head: Yes normocephalic Resp Effort & Inspection: normal respiratory effort and able to speak in complete sentences Neuro General: patient oriented x3, gait normal and CN's II-XI intact bilaterally Cognition (Neuro): normal cognition Motor exam (neuro): 5/5 motor strength present throughout Psych Appearance: grossly normal Mental Status: mental status grossly normal Speech and movement: Normal speech and movement present Affect: normal affect Attitude: cooperative Thought process: Normal thought process present Thought content: Normal thought content present Insight: Good insight present (Psych) Judgement: Good judgement present (Psych) Assessment & Plan Assessment & Plan (1) Chronic migraine without aura: Code(s): G43.709 - Chronic migraine without aura, not intractable, without status migrainosus (2) Intracranial hypertension: Code(s): G93.2 - Benign intracranial hypertension (3) Chiari I malformation: Code(s): G93.5 - Compression of brain (4) Autonomic attacks: Comment: Right facial swelling Code(s): G40.109 - Localization-related (focal) (partial) symptomatic epilepsy and epileptic syndromes with simple partial seizures, not intractable, without status epilepticus (5) Obstructive sleep apnea: Code(s): G47.33 - Obstructive sleep apnea (adult) (pediatric) Plan Reviewed in-lab PSG- start APAP as ordered, will arrange for nocturnal pulse oximetry reading x's 1 once on APAP. Reviewed brain MRA/MRV- normal Reviewed LP reults- elevated OP at 33 cmH2O w/ normal CSF studies and eye exam w/o papilledema. This is c/w a dx of IIH w/o papilledema. Reviewed long-term complications of IIH, including risk for irreversible vision deficits/blindness. Continue Acetazolamide 125mg po tid. Check labs Eye exam in 6 months or sooner prn For overall headache management: Try to optimize good self-care, including but not limited to maintaining a healthy diet, adequate fluid intake, adequate sleep, and engaging in regular physical activity. Track headaches. For acute headache treatment: May use Cyclobenzaprine 10mg qhs prn. Trial Rizariptan prn. Stop Sumatriptan 100mg tab- ineffective Reviewed potential adverse effects of triptans, including but not limited to nausea, fatigue, chest tightness/tingling (usually passes within a few minutes), medication overuse headaches. Previous acute migraine medication trials: Tylenol- ineffective. Excedrin- ineffective. Sumatriptan 100mg tab- ineffective Acute migraine medication contraindications: None at this time For headache prevention medication: Riboflavin 400mg qam Magnesium 400mg qhs Emgality 120mg sc q month. Increase Topiramate from 50mg qhs to 50mg bid. Reviewed potential adverse effects of TCAs, including but not limited to fatigue, mood changes. Previous migraine prevention medication trials: Gabapentin- ineffective. Amitriptyline- ineffective Migraine prevention medication contraindications: BBs d/t asthma dx Pt to follow-up in 1 months or sooner prn. Medications: New rizatriptan max 2 tabs per day or 4 tabs per week 5 - 10 mg (0.5 - 1 x 10 mg) PO Q2H 21 days PRN 12 tabs 3RF migraine headache Changed From ondansetron 4 mg PO DAILY 5 days PRN 10 tabs 0RF nausea and vomiting To ondansetron 4 - 8 mg (1 - 2 x 4 mg) PO Q6-8H 30 days PRN 40 tabs 1RF nausea and vomiting From topiramate 25 - 50 mg (1 - 2 x 25 mg) PO BEDTIME 30 days 60 tabs 3RF To topiramate 50 mg (2 x 25 mg) PO BID 30 days 120 tabs 3RF Coding Level of Care Code Est Pt Level 4 (58119) Diagnoses Chronic migraine without aura G43.709 Intracranial hypertension G93.2 Chiari I malformation G93.5 Autonomic attacks G40.109 Obstructive sleep apnea G47.33
[2023-10-29 08:52] VITALS: BP 124/80
== END 2023-10-29 09:45 | disposition home or self-care (01) ==
PROVIDERS: PCP Internal Medicine; Visit Provider Nurse Practitioner Family
DX: G43.709 Chronic migraine without aura, not intractable, without status migrainosus (principal); G93.2 Benign intracranial hypertension; G93.5 Compression of brain; G40.109 Localization-related (focal) (partial) symptomatic epilepsy and epileptic syndromes with simple partial seizures, not intractable, without status epilepticus; G47.33 Obstructive sleep apnea (adult) (pediatric)
CPT/HCPCS: 99214

== ENCOUNTER → 2023-10-29 08:34 | Outpatient (BNVA) | payer BC, SELFPAY | PROVIDERS: PCP Internal Medicine; Visit Provider Nurse Practitioner Family ==

== ENCOUNTER → 2023-12-10 07:42 | Outpatient (BNVA) | payer BC, SELFPAY | PROVIDERS: Visit Provider Nurse Practitioner Family ==

== ENCOUNTER 2023-12-12 11:47 | Outpatient (REF) | payer BC, SELFPAY ==
[2023-12-12 12:15] LABS: MANUAL DIFF FLAG NO
[2023-12-12 13:27] LABS: Basophils Absolute Auto 0.1 X10*3/uL (0.0-0.2); Basophils Percent Auto 0.5 % (0-2); Eosinophils Absolute Auto 0.5 X10*3/uL (0.0-0.4); Eosinophils Percent Auto 5.1 % (0-4); Hemoglobin 15.4 g/dl (12.0-16.0); Imm Gran Abs Auto 0.04 X10*3/uL (0.00-0.03); Imm Gran Pct Auto 0.4 % (0.0-0.4); Lymphocytes Absolute Auto 2.4 X10*3/uL (1.2-4.9); Lymphocytes Percent Auto 25.9 % (20-40); Mean Corpuscular HGB Conc 34.2 g/dl (31.0-35.0); Mean Corpuscular Hemoglobin 30.7 pg (27.0-33.0); Mean Corpuscular Volume 89.6 fL (80.0-98.0); Mean Platelet Volume 9.3 fL (9.4-12.3); Monocytes Absolute Auto 0.5 X10*3/uL (0.1-1.2); Monocytes Percent Auto 5.8 % (2-11); Neutrophils Absolute Auto 5.7 x10*3/uL (2.0-8.3); Neutrophils Percent Auto 62.3 % (45-73); Platelet Count 285 X10*3/uL (160-400); Red Blood Count 5.02 X10*6/uL (4.20-5.50); Red Cell Distribution Width 12.9 % (11.0-16.0); White Blood Count 9.2 X10*3/uL (4.8-10.8)
[2023-12-12 13:31] LABS: Estimated Average Glucose 209 mg/dL; Hemoglobin A1c % 8.9 % (<6.0)
[2023-12-12 13:57] LABS: Rheumatoid Factor < 13.0 IU/mL (<15.0)
[2023-12-12 14:09] LABS: Alanine Aminotransferase 49 U/L (0-31); Albumin Level 4.3 g/dL (3.5-5.0); Alkaline Phosphatase 83 U/L (39-117); Anion Gap 11 (12-20); Aspartate Amino Transferase 23 U/L (5-31); Bilirubin Total 0.6 mg/dL (0.0-1.0); Blood Urea Nitrogen 9 mg/dL (9-16); Calcium 9.8 mg/dL (8.4-10.2); Carbon Dioxide 23 mmol/L (22-29); Chloride 110 mmol/L (96-108); Estimated Glomerular Filt Rate > 60; Glucose Random 212 mg/dL (60-115); Potassium 3.8 mmol/L (3.3-5.1); Sodium 140 mmol/L (135-145); Total Protein 7.5 g/dL (6.5-8.0)
[2023-12-12 14:22] LABS: TSH reflex Free T4 0.59 uIU/mL (0.32-4.0); Vitamin D 25-OH Total 18.8 ng/mL (>30)
[2023-12-12 14:29] LABS: Folate 7.9 ng/mL (> or = 4.0); Vitamin B12 391 pg/mL (200-900)
[2023-12-12 14:42] LABS: Erythrocyte Sedimentation Rate 36 MM/HR (0-20)
[2023-12-13 14:23] LABS: CRP High Sensitivity 4.7 mg/L
[2023-12-15 02:13] LABS: Vitamin A 43 mcg/dL (38-98)
[2023-12-15 02:19] LABS: Beta-Gamma Tocopherol 1.5 mg/L (<=4.3)
[2023-12-16 13:28] LABS: Zinc 83 mcg/dL (60-130)
[2023-12-17 00:58] LABS: Vitamin K1 403 pg/mL (130-1500)
[2023-12-17 14:43] LABS: Vitamin B6 4.9 ng/mL (2.1-21.7)
[2023-12-17 15:44] LABS: Vitamin B1 7 nmol/L (8-30)
[2023-12-18 18:09] LABS: Vitamin B2 (Riboflavin) 17.4 nmol/L (6.2-39.0)
[2023-12-18 18:28] LABS: Nicotinamide <20 ng/mL; Vit B3 - Nicotinic Acid <20 ng/mL
[2023-12-18 22:39] LABS: Vitamin B5 (Pantothenic Acid) 54 ng/mL (<275)
[2023-12-19 11:04] LABS: Anti Nuclear Antibody Screen NEGATIVE (NEGATIVE)
== END 2023-12-12 11:48 | disposition home or self-care (01) ==
LOC: HO.LAB 11:47
PROVIDERS: Visit Provider Nurse Practitioner Family
DX: R11.0 Nausea (principal); R20.2 Paresthesia of skin; R63.4 Abnormal weight loss; R51.9 Headache, unspecified; E11.9 Type 2 diabetes mellitus without complications; R42 Dizziness and giddiness; G93.2 Benign intracranial hypertension; G40.109 Localization-related (focal) (partial) symptomatic epilepsy and epileptic syndromes with simple partial seizures, not intractable, without status epilepticus
CPT/HCPCS: 36415; 80053; 82180; 82306; 82550; 82607; 82746; 83036; 84207; 84252; 84425; 84443; 84446; 84590; 84591; 84597; 84630; 85025; 85652; 86038; 86141; 86431

== ENCOUNTER 2024-02-05 13:51 | Outpatient (REF) | payer OTHER, SELFPAY ==
--- NOTE | ~2024-02-05 | US_ITS ---
EXAMINATION: US SOFT TISSUE HEAD/NECK CLINICAL INFORMATION: Localized swelling, mass and lump, head. Swelling of scalp, base of neck right. Per liquid center assembler patient states frequent headaches at base of neck. COMPARISON: None available. TECHNIQUE: Linear transducer moncada-scale and color Doppler examination of the base of neck, right. FINDINGS: Targeted ultrasound images were obtained by the liquid center assembler of the area of concern as indicated by the patient in the base of the neck on the right and demonstrated a 0.8 x 0.4 x 0.6 cm hypoechoic wider than tall structure with subtle echogenic hilum characteristic of a lymph node. Radiologist was not in attendance. Images were later provided for interpretation. US/US soft tiss head and/or neck IMPRESSION: Area of concern as indicated by the patient in the base of the neck on the right corresponds with a 0.8 cm lymph node.
== END 2024-02-05 13:52 | disposition home or self-care (01) ==
LOC: HO.US 13:51
PROVIDERS: Visit Provider Nurse Practitioner Family
DX: R22.0 Localized swelling, mass and lump, head (principal)
CPT/HCPCS: 76536

== ENCOUNTER 2024-02-13 20:08 | Outpatient (REF) | payer OTHER, SELFPAY ==
--- NOTE | ~2024-02-13 | MR_ITS ---
EXAMINATION: MR CERVICAL SPINE WITHOUT CONTRAST CLINICAL INFORMATION: Cervicalgia COMPARISON: None available. TECHNIQUE: MRI of the cervical spine was obtained using routine sequences without contrast. FINDINGS: Straightening of the normal cervical lordosis. No significant spondylolisthesis. Cervical vertebral body heights are maintained. Scattered intraosseous hemangiomas are noted. Mildly heterogeneous background signal, particularly the clivus, is indeterminate. The cervical spinal cord is normal in signal intensity. C2-C3: Only visualized on the sagittal sequence. No significant spinal canal stenosis. The neural foramen are likely patent. C3-C4: Disc osteophyte complex indents the ventral thecal sac which is mildly narrowed. Small central disc protrusion. Uncovertebral spurring without significant neural foraminal stenosis. C4-C5: Disc osteophyte complex with suspected left subarticular/proximal foraminal disc protrusion that is suboptimally evaluated secondary to motion. The spinal canal is mild to moderately narrowed. Uncovertebral and facet arthropathy with moderate narrowing of the bilateral neural foramen. C5-C6: Shallow disc osteophyte complex without significant spinal canal stenosis. The neural foramen are patent. C6-C7: Trace disc osteophyte complex without significant spinal canal stenosis. Mild narrowing of the right neural foramen. C7-T1: No significant spinal canal or neural foraminal stenosis. T1-T2: Central disc extrusion with mild inferior migration indents the ventral thecal sac with mild canal stenosis. The neural foramen are patent. T4-T5: Only partially visualized. Probable mild to moderate left neural foraminal stenosis. MR/MR cervical spine wo con IMPRESSION: Suboptimal evaluation secondary to motion. Within this constraint, no high-grade spinal canal stenosis. Up to moderate bilateral neural foraminal stenosis at C4-C5. Central disc extrusion at T1-T2 indents the ventral thecal sac with mild canal stenosis. Heterogeneous marrow signal is indeterminate and may represent red marrow. Correlation with laboratory values is recommended.
== END 2024-02-13 20:09 | disposition home or self-care (01) ==
LOC: HO.MRI 20:08
PROVIDERS: Visit Provider Nurse Practitioner Family
DX: M54.2 Cervicalgia (principal); M54.81 Occipital neuralgia; G93.2 Benign intracranial hypertension; R51.9 Headache, unspecified
CPT/HCPCS: 72141

== ENCOUNTER 2024-02-18 07:47 | Outpatient (AMB) | payer OTHER, SELFPAY ==
--- NOTE | 2024-02-18 07:47 | A.OFFVIS_ITS ---
Intake Visit Reasons: f/u for Migraines - Confirmed Intake Note: Pt presents for follow up Migraines via telehealth. Allergies Heparin Analogues [HEPARIN AGENTS] Allergy (Intermediate, Verified 02/18/24 07:48) HIVES, RASH, SEVERE BRUISING dulaglutide [From Trulicity] Allergy (Verified 02/18/24 07:48) Rash Heparin Combination Allergy (Unknown, Uncoded 02/18/24 07:48) Hives Medication List - Last Reconciled 02/18/24 by JASWANT Motta albuterol sulfate 0.63 mg (3 mL) inhalation QID PRN albuterol sulfate 90 mcg/actuation 1 inh inhalation QID PRN alprazolam 0.25 mg orally 1 tab 30 minutes prior to MRI, may repeat x's 1; 1 day atogepant (Qulipta) 60 mg PO DAILY 30 days baclofen 5 - 10 mg (0.5 - 1 x 10 mg) PO BEDTIME 30 days rpopztwbhc-bqpvazwhtowjq-krfy 50-325-40 mg 1 - 2 caps PO Q4-6H PRN 7 days galcanezumab-gnlm (Emgality Pen) 120 mg subcut ONCE 30 days glipizide ER 1 tab PO BIDAC insulin glargine (Lantus Solostar U-100 Insulin) 20 units subcut BID ketorolac 10 mg PO Q8H 5 days lorazepam 1-2 tab 30 min prior to MRI, may repeat x's 1 orally PRN; magnesium oxide 400 mg PO BEDTIME 30 days metoclopramide HCl 5 - 10 mg (1 - 2 x 5 mg) PO Q4-6H 14 days MDD 6 tabs ondansetron 4 - 8 mg (1 - 2 x 4 mg) PO Q6-8H PRN 30 days riboflavin (vitamin B2) 400 mg PO DAILY 30 days rizatriptan 5 - 10 mg (0.5 - 1 x 10 mg) PO Q2H PRN 21 days semaglutide (Ozempic) mg subcut semaglutide (Ozempic) mg subcut sumatriptan succinate 50 - 100 mg orally at onset of headache, may repeat in 2 hrs PRN; max 2 tabs per day or 4 tabs/week (may take with Ibuprofen) 30 days thiamine HCl (vitamin B1) 100 mg PO DAILY 30 days topiramate 75 - 100 mg (1.5 - 2 x 50 mg) PO BID 30 days ubrogepant (Ubrelvy) 50 - 100 mg (0.5 - 1 x 100 mg) PO ONCE PRN 30 days HPI Comments Details: 43-yr-old female presents for f/u televideo visit via [employer] Since the last visit, pt developed marked right posterior temporal/occipital region pain and swelling. This was interfering w/ her ability to do PT. Thus, we had was advised to undergo US and c-spine MRI. US showed 0.8 cm lymph node in the region. C-spine MRI- report pending. She [place]av[place] Viv[place] [facility] [place] was offered trigger point injection tx, but pt would like to do this more locally. Pt states she was also told her headache was more cervicogenic and not r/t to elevated intracranial pressure as she does not have papilledema, thus she stopped Acetazolamide. Overall, since starting PT, she has had some improvements. Still having a daily headache a/w blurry vision, nausea. But now has some pain free hours. She can still be quite dizzy, which can confine to her bed. Still having difficulty fully turning her head and w/ vision tracking- for instance, may or may not see a car behind her when she turns her head (tries when she is a passenger). Her speech and cognition are better, but not perfect. She has been able to return to work in a limited capacity- working 10 hrs per week from home. 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 She is not driving. Baseline headache characteristics: 1- Headache is throbbing/pressure, always in the lower occipital/neck/shoulder region, and can sometimes move into the forehead and face, rarely in the crown of the head. A/w brain fog, room spinning or not right in space dizziness, nausea, osmophobia, photophobia, phonophobia, allodynia, and previously right sided facial swelling.. 2- Brief severe sharp stabbing pains in the occipital region- can have several in 1 day, and then may have a few days w/o an attack. She cannot reproduce this, even w/ palpation. She has stopped Emgality after 2 inj cycles, as it was not helpful. She stopped Acetazolamide. She is using Topiramate 50mg qhs. Metoclopramide helps the nausea but not the headache. Rizatriptan is not very helpful. Ubrelvy is not very helpful. Ozempic was switched to Mounjaro approx 1 month ago, which is already more effective. Pt started APAP. She states she is off and on w/ the CPAP machine. Has tried a new nasal mask which she is tolerating better. She has had difficulty adjusting to it. When she has cold/asthma s/s, it is hard to use. Pt reports her machine is showing her residual AHI is <1-2/hr. Work-up: 02/13/24, C-spine MRI: pending. 02/05/24, US/US soft tiss head and/or neck IMPRESSION: Area of concern as indicated by the patient in the base of the neck on the right corresponds with a 0.8 cm lymph node. 10/25/23, MR/MR venography head wo/w con IMPRESSION: No cerebral venous thrombosis. Unremarkable MRV of the head. 10/01/23, MR/MR angio head wo con IMPRESSION: Normal MRA of the head. 09/20/23, In-lab PSG: AHI 9/hr, REM AHI 37/hr, O2 william 79% 09[facility]23[facility], Lumbar Puncture: Opening pressure was 33 cm, w/ normal CSF studies. 08/08/2023?, Cervical Spine 4 or 5 Views FINDINGS: No evidence of fracture or dislocation. Mild bilateral foraminal stenosis at C3-C4 and C4-C5. IMPRESSION: Mild degenerative changes in the cervical spine are outlined above 07/06/2023, Brain MRI w/wo,IMPRESSION: 1. No evidence of acute/subacute infarction, mass effect, or abnormal enhancement. 2. Borderline low cerebellar tonsils with slight crowding at the foramen magnum but without compression of the cervicomedullary junction. The appearance is unchanged compared to the MRI from 10 years ago. 3. A few scattered foci of nonspecific T2 signal abnormality are seen in the supratentorial white matter. [facility] Medical History (Updated 01/28/24 @ 14:55 by JASWANT Motta) DVT (deep venous thrombosis) Chiari malformation type II COVID-19 Asthma Diabetes Surgical History [place] teeth extracted Hx of carpal tunnel repair Hx of tonsillectomy Hx of knee surgery Social History Household Members: Family Housing: House Do you presently have visiting nurse or other home services: No Alcohol intake: never Patient Tobacco Use Status: Never used Tobacco Advance Directives Date on File: 06/29/22 service: No Current occupational status: employed Physical Exam Const General: cooperative and no acute distress Orientation/consciousness: patient oriented x3 Resp Effort & Inspection: normal respiratory effort and able to speak in complete sentences Neuro General: patient oriented x3 Cognition (Neuro): normal cognition Psych Appearance: grossly normal Mental Status: mental status grossly normal Speech and movement: Normal speech and movement present Affect: normal affect Attitude: cooperative Telehealth Telehealth Telehealth Platform: [facility] Location of provider rendering services: practice address Location of patient: address on file Patient Identification confirmed using: Name, : Yes Telehealth method: video Patient verbally consented to treatment: Yes Patient verbally consented to billing insurance company: Yes Patient informed of any privacy concerns related to visit: Yes Minutes spent on Phone/Video with Pt.: 45 Assessment & Plan Assessment & Plan (1) Cervicalgia: Code(s): M54.2 - Cervicalgia Category: Medical (2) Occipital neuralgia: Code(s): M54.81 - Occipital neuralgia Category: Medical (3) Stabbing headache: Code(s): G44.85 - Primary stabbing headache Category: Medical (4) Chronic migraine without aura: Code(s): G43.709 - Chronic migraine without aura, not intractable, without status migrainosus Category: Medical (5) Intracranial hypertension: Code(s): G93.2 - Benign intracranial hypertension Category: Medical (6) Obstructive sleep apnea: Code(s): G47.33 - Obstructive sleep apnea (adult) (pediatric) Category: Medical Plan For cervicalgia: Reviewed neck US- 0.8cm lymph node. Review c-spine MRI report when available. Will request pain management consult for eval for trigger point/cortisone inj. For RACHAEL: Continue APAP w/ goal of using nightly > 4 hrs. Will f/u on order for nocturnal pulse oximetry reading x's 1 once on APAP. ? For overall headache management: Continue to optimize good self-care, including but not limited to maintaining a healthy diet, adequate fluid intake, adequate sleep, and engaging in regular physical activity. Track headaches. Continue PT for vestibular tx- at [facility], [address] [place] w/ Jazmin Dill PT. ? For IIH w/o papilledema: Brain MRA/MRV- normal Pt has stopped Acetazolamide 125mg po tid. Continue Topiramate 50mg qhs. Recheck CBC, CMP, ESR, CRP prior to f/u appt. F/u eye exam as scheduled. Pt to notify us w/ any abrupt onset vision chnages. ? For acute headache treatment: Baclofen 5-10mg qhs prn. Continue Metoclopramide prn. Stop Rizariptan prn. Stop Ubrelvy 100mg prn. Trial Eletriptan 40mg prn. Previous acute migraine medication trials: Tylenol- ineffective. Excedrin- ineffective. Sumatriptan 100mg tab- ineffective. Cyclobenzaprine 10mg qhs- causes excess drowsiness. Acute migraine medication contraindications: None at this time ? For headache prevention medication: Continue Riboflavin 400mg qam Magnesium 400mg qhs- hold for now d/t loose stools. Pt has stopped Emgality 120mg sc q month- was ineffective. Continue Topiramate 100mg bid. Previous migraine prevention medication trials: Gabapentin- ineffective. Amitriptyline- ineffective. Emgality ineffective. Migraine prevention medication contraindications: BBs d/t asthma dx For stabbing headache: Trial Indomethacin 25mg po tid - taken w/ food. Future considerations- Tegretol trial. May continue to work no more than 10 hours per week remotely from home. Pt cannot drive in any capacity. f/u in 2-3 months or sooner. Orders: Orders Complete Blood Count Auto Diff Today E11.9 - Type 2 diabetes mellitus without complications, G44.85 - Primary stabbing headache, R11.0 - Nausea, R42 - Dizziness and giddiness Comprehensive Met. Panel Today E11.9 - Type 2 diabetes mellitus without complications, G44.85 - Primary stabbing headache, R11.0 - Nausea, R42 - Dizziness and giddiness CRP High Sensitivity Today E11.9 - Type 2 diabetes mellitus without complications, G44.85 - Primary stabbing headache, R11.0 - Nausea, R42 - Dizziness and giddiness Erythrocyte Sedimentation Rate Today E11.9 - Type 2 diabetes mellitus without complications, G44.85 - Primary stabbing headache, R11.0 - Nausea, R42 - Dizziness and giddiness Referrals Pain Management Referral M54.2 - Cervicalgia, M54.81 - Occipital neuralgia Medications: New eletriptan take 1 tab at onset of headache; if no relief, may repeat 1 tab after at least 2 hrs; max = 2 tabs/24 hrs orally PRN; 30 days 14 tabs 3RF migraine headache atogepant (Qulipta) 60 mg PO DAILY 30 days 30 tabs 6RF tirzepatide (Mounjaro) 7.5 mg subcut QWEEK indomethacin administer with food or milk 25 mg PO TID 30 days 90 caps 1RF Discontinued acetazolamide Discontinued Reason: Patient no longer taking 125 mg PO TID 30 days 90 tabs 2RF nhjdttbyrm-qyscuymtheiaj-xgyp 50-325-40 mg for post-LP headache headache (max 6 caps per day) Discontinued Reason: Doctor's Order 1 - 2 caps PO Q4-6H 7 days PRN 24 caps 2RF headache Scribe Plan - Not visible on output: Reviewed possible medication side effects, including but not limited to drowsiness, dizziness. Coding Level of Care Code Tele Est Pt Level 4 (99860) Diagnoses Cervicalgia M54.2 Occipital neuralgia M54.81 Stabbing headache G44.85 Chronic migraine without aura G43.709 Intracranial hypertension G93.2 Obstructive sleep apnea G47.33
== END 2024-02-18 09:59 | disposition home or self-care (01) ==
LOC: HO.HSMS 07:47
PROVIDERS: PCP Nurse Practitioner; Visit Provider Nurse Practitioner Family
DX: M54.2 Cervicalgia (principal); M54.81 Occipital neuralgia; G44.85 Primary stabbing headache; G43.709 Chronic migraine without aura, not intractable, without status migrainosus; G93.2 Benign intracranial hypertension; G47.33 Obstructive sleep apnea (adult) (pediatric)
CPT/HCPCS: 99214

== ENCOUNTER → 2024-02-18 07:47 | Outpatient (BNVA) | payer OTHER, SELFPAY | PROVIDERS: PCP Nurse Practitioner; Visit Provider Nurse Practitioner Family ==

== ENCOUNTER 2024-03-02 10:00 | Outpatient (AMB) | payer OTHER, SELFPAY ==
--- NOTE | 2024-03-02 10:19 | A.OFFVIS_ITS ---
Vital Signs 03/02/24 10:20 Height 4 ft 11 in Weight 223 lb BMI 45.0 BP 137/82 Blood Pressure Location Lt brachial Position Sitting Respiration 14 Pulse 98 Pulse Source Pulse Oximeter Pulse Oximetry (%) 98 Oxygen Delivery Method Room Air Intake Visit Reasons: Please eval for trigger point/steroid injection tx Allergies Heparin Analogues [HEPARIN AGENTS] Allergy (Intermediate, Verified 03/02/24 10:22) HIVES, RASH, SEVERE BRUISING dulaglutide [From Trulicity] Allergy (Verified 03/02/24 10:22) Rash Medication List - Last Reconciled 03/02/24 by Makayla Gautam LPN albuterol sulfate 0.63 mg (3 mL) inhalation QID PRN albuterol sulfate 90 mcg/actuation 1 inh inhalation QID PRN amitriptyline 25 mg PO BEDTIME baclofen 5 - 10 mg (0.5 - 1 x 10 mg) PO BEDTIME 30 days cholecalciferol (vitamin D3) 1,250 mcg PO QWEEK insulin glargine (Lantus Solostar U-100 Insulin) 20 units subcut BID magnesium oxide 400 mg PO BEDTIME 30 days metoclopramide HCl 5 - 10 mg (1 - 2 x 5 mg) PO Q4-6H 14 days MDD 6 tabs ondansetron 4 - 8 mg (1 - 2 x 4 mg) PO Q6-8H PRN 30 days riboflavin (vitamin B2) 400 mg PO DAILY 30 days thiamine HCl (vitamin B1) 100 mg PO DAILY 30 days tirzepatide (Mounjaro) 7.5 mg subcut QWEEK topiramate 75 - 100 mg (1.5 - 2 x 50 mg) PO BID 30 days ubrogepant (Ubrelvy) 50 - 100 mg (0.5 - 1 x 100 mg) PO ONCE PRN 30 days HPI HPI Please eval for trigger point/steroid injection tx: Details: 43-year-old female who presents today to the office for an evaluation of trigger point injection. The patient reports daily headaches. She describes her headache as throbbing and pressure sensations in the lower occipital and neck/shoulder regions. The pain occasionally radiates into the forehead and face, and rarely into the crown of the head. She also reports having brain fog and spinning in the room. The headache is better when lying down and worse when getting up. She saw [place]. Javon Vivas [place] [facility] [place] and was offered a trigger point injection, but she wants to do it locally. She has noticed some improvement since starting her physical therapy. She still has mild dizziness and can confine herself to bed. She has difficulty fully turning her head and with vision tracking; for instance, she may or may not see a car behind her when she turns her head (tries when she is a passenger). She has been able to return to work in a limited capacity, working 10 hours per week from home. 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 She is not driving. Her symptoms started insidiously on June 29, 2023, following a supposedly viral illness that caused some alteration in her speech as well as dizziness. The pain in terms of the head and neck areas is described as an aching stabbing sensation in the occipital region and the upper shoulder. She recently had her first round of dry needling on 02/27/24. She has lost about 6 pounds and is currently on mounjaro. [facility] Medical History (Updated 03/06/24 @ 11:25 by Brayan Santillan MD) DVT (deep venous thrombosis) Chiari malformation type II COVID-19 Asthma Diabetes Surgical History [place] teeth extracted Hx of carpal tunnel repair Hx of tonsillectomy Hx of knee surgery Social History Household Members: Family Housing: House Do you presently have visiting nurse or other home services: No Alcohol intake: never Patient Tobacco Use Status: Never used Tobacco Advance Directives Date on File: 06/29/22 service: No Current occupational status: employed Review of Systems Const All systems reviewed & are unremarkable except as noted in HPI and below Physical Exam Vital Signs: Last Vital Signs Pulse 98 03/02/24 10:20 Resp 14 03/02/24 10:20 BP 137/82 03/02/24 10:20 Pulse Ox 98 03/02/24 10:20 Oxygen Delivery Method Room Air 03/02/24 10:20 BMI result Body Mass Index 45.0 General: Appears afebrile. Alert and oriented. Mood and affect appropriate. Follows and participates in conversation appropriately. Respiratory effort is unlabored. Able to transition from sit to stand unassisted. Ambulates with bilaterally normal heel strike and toe off. Office Procedures Injection Trigger Point Multi Pre-procedure diagnosis: Myofascial pain Post-procedure diagnosis: Myofascial pain Site and number of trigger points: bilateral trapezius and occipitalis muscles. Solution: Total volume administered 10 ml (5 ml lidocaine 1% + 5 ml ropivacaine 0.25%). The procedure, its benefits, and its risks were explained to the patient and all questions were answered. A pulse oximeter monitor was attached and the patient was monitored throughout the procedure. Prior to the start of the procedure, a ?time out? was performed to confirm correct patient, procedure, and laterality. Trigger points were identified by manual palpation and marked. The skin was cleaned with Chloraprep. A 1.5 inch 25 G needle was used. Each of the trigger points were approximated and elevated in the direction away from the body. Dry needling then took place for five seconds. Approximately 0.5 ml to 1 ml of injectate was delivered to the trigger point followed by dry needling for five seconds. This process was repeated at each trigger point site. The patient tolerated the procedure well. Post-procedure, breath sounds were equal at both sides of the chest. The patient tolerated the procedure well, without complication. The patient denied any numbness, paresthesias, or weakness. Post-procedure vitals were recorded as part of the nursing discharge note in electronic medical record. Following a period of observation, the patient was discharged in stable condition with written discharge instructions. Trigger Point Multiple: 85331- Trigger point injection =/>3 Results Reviewed Results Reviewed: 02/13/24: MR CERVICAL SPINE WITHOUT CONTRAST FINDINGS: Straightening of the normal cervical lordosis. No significant spondylolisthesis. Cervical vertebral body heights are maintained. Scattered intraosseous hemangiomas are noted. Mildly heterogeneous background signal, particularly the clivus, is indeterminate. The cervical spinal cord is normal in signal intensity. C2-C3: Only visualized on the sagittal sequence. No significant spinal canal stenosis. The neural foramen are likely patent. C3-C4: Disc osteophyte complex indents the ventral thecal sac which is mildly narrowed. Small central disc protrusion. Uncovertebral spurring without significant neural foraminal stenosis. C4-C5: Disc osteophyte complex with suspected left subarticular/proximal foraminal disc protrusion that is suboptimally evaluated secondary to motion. The spinal canal is mild to moderately narrowed. Uncovertebral and facet arthropathy with moderate narrowing of the bilateral neural foramen. C5-C6: Shallow disc osteophyte complex without significant spinal canal stenosis. The neural foramen are patent. C6-C7: Trace disc osteophyte complex without significant spinal canal stenosis. Mild narrowing of the right neural foramen. C7-T1: No significant spinal canal or neural foraminal stenosis. T1-T2: Central disc extrusion with mild inferior migration indents the ventral thecal sac with mild canal stenosis. The neural foramen are patent. T4-T5: Only partially visualized. Probable mild to moderate left neural foraminal stenosis. IMPRESSION: Suboptimal evaluation secondary to motion. Within this constraint, no high-grade spinal canal stenosis. Up to moderate bilateral neural foraminal stenosis at C4-C5. Central disc extrusion at T1-T2 indents the ventral thecal sac with mild canal stenosis. Heterogeneous marrow signal is indeterminate and may represent red marrow. Correlation with laboratory values is recommended. 02/05/24: US SOFT TISSUE HEAD/NECK FINDINGS: Targeted ultrasound images were obtained by the entry level management of the area of concern as indicated by the patient in the base of the neck on the right and demonstrated a 0.8 x 0.4 x 0.6 cm hypoechoic wider than tall structure with subtle echogenic hilum characteristic of a lymph node. Radiologist was not in attendance. Images were later provided for interpretation. IMPRESSION: Area of concern as indicated by the patient in the base of the neck on the right corresponds with a 0.8 cm lymph node. Assessment & Plan Assessment & Plan (1) Occipital neuralgia: Code(s): M54.81 - Occipital neuralgia Category: Medical (2) Cervicalgia: Code(s): M54.2 - Cervicalgia Category: Medical (3) Myofascial pain syndrome: Code(s): M79.18 - Myalgia, other site Category: Medical Plan Patient is status post trigger point injections. Patient tolerated procedure well and was discharged home in stable condition with discharge instructions. All questions were answered. We will follow-up in 2 days for diagnostic occipital nerve blocks in order to separate the diagnostic evaluation of each of these 2 different types of procedures. In terms of her overall diagnosis, I will defer her treatment to our colleagues in Neurology. I did emphasize continuing physical therapy and weight loss as the two primary drivers of improvement with respect to her diffuse musculoskeletal symptoms as well as potential IIH related symptoms. Scribed for Dr. Santillan by Willis Moser, medical records supervisor, on 03/02/2024. I, Dr. Santillan, have personally reviewed and agree with the information entered by the scribe. Coding Level of Care Code New Pt Level 4 (35524) Diagnoses Occipital neuralgia M54.81 Cervicalgia M54.2 Myofascial pain syndrome M79.18 CPT Codes Details - Trigger Point Multiple: 03014- Trigger point injection =/>3 ([id number])
[2024-03-02 10:20] VITALS: BP 137/82; PULSE 98; RESP 14; O2SAT 98; BMI 45.0
== END 2024-03-02 11:42 | disposition home or self-care (01) ==
PROVIDERS: PCP Nurse Practitioner; Referring Provider Nurse Practitioner Family; Visit Provider Internal Medicine
DX: M54.81 Occipital neuralgia (principal); M54.2 Cervicalgia; M79.18 Myalgia, other site
CPT/HCPCS: 20552; 99204

== ENCOUNTER → 2024-03-02 10:00 | Outpatient (BNVA) | payer OTHER, SELFPAY | PROVIDERS: PCP Nurse Practitioner; Referring Provider Nurse Practitioner Family; Visit Provider Internal Medicine | DX: M79.18 Myalgia, other site (principal); M54.81 Occipital neuralgia; M54.2 Cervicalgia | CPT/HCPCS: 20552; J2795 ==

== ENCOUNTER 2024-03-04 07:54 | Outpatient (AMB) | payer OTHER, SELFPAY ==
--- NOTE | 2024-03-04 08:37 | A.OFFVIS_ITS ---
Vital Signs 03/04/24 08:39 Height 4 ft 11 in Weight 233 lb BMI 47.1 BP 140/81 H Blood Pressure Location Lt brachial Position Sitting Respiration 14 Pulse 89 Pulse Source Pulse Oximeter Pulse Oximetry (%) 99 Oxygen Delivery Method Room Air Intake Visit Reasons: occipital NB Allergies Heparin Analogues [HEPARIN AGENTS] Allergy (Intermediate, Verified 03/02/24 10:22) HIVES, RASH, SEVERE BRUISING dulaglutide [From Trulicity] Allergy (Verified 03/02/24 10:22) Rash HPI HPI occipital NB: Details: 43-year-old female presents today in the office for occipital nerve block. Denies any recent cough, cold, infection, fever or other significant changes in medical history since last office visit. Past procedure: 03/02/24: Trigger point injections: No relief. [facility] Medical History (Updated 03/06/24 @ 11:25 by Brayan Santillan MD) DVT (deep venous thrombosis) Chiari malformation type II COVID-19 Asthma Diabetes Surgical History [place] teeth extracted Hx of carpal tunnel repair Hx of tonsillectomy Hx of knee surgery Social History Household Members: Family Housing: House Do you presently have visiting nurse or other home services: No Alcohol intake: never Patient Tobacco Use Status: Never used Tobacco Advance Directives Date on File: 06/29/22 service: No Current occupational status: employed Review of Systems Const All systems reviewed & are unremarkable except as noted in HPI and below Physical Exam Vital Signs: Last Vital Signs Pulse 89 03/04/24 08:39 Resp 14 03/04/24 08:39 BP 140/81 H 03/04/24 08:39 Pulse Ox 99 03/04/24 08:39 Oxygen Delivery Method Room Air 03/04/24 08:39 BMI result Body Mass Index 47.1 General: Appears afebrile. Alert and oriented. Mood and affect appropriate. Follows and participates in conversation appropriately. Respiratory effort is unlabored. Able to transition from sit to stand unassisted. Office Procedures Nerve Block Details: Greater and Lesser Occipital Nerve Block, Bilateral A physical exam was used to isolate the location of the targeted nerves. These injection sites were prepped with alcohol. Using a sterile technique, a 25 gauge 1.5-inch needle was introduced into each overlying nerve. A total of 3 cc of 0.5% ropivacaine was injected around the right greater and lesser occipital nerves in a fan-like motion.? This was then repeated on the left side. Aspirations were negative for blood, CSF, and air prior to injection at all sites. The needle was removed, the skin cleansed and a sterile bandage was applied where needed. The patient tolerated the procedure well and no complications were encountered. Following the procedure the patient's vital signs were stable. Time Out: Immediately prior to the procedure, the following was verbally confirmed that there is a signed consent form and that the correct patient, planned procedure, site and side are consistent with documentation and that n ecessary equipment and/or blood products are available prior to the start of the case. Complications: none EBL: <5 cc. An ultrasound image of the injection was taken and stored in the permanent rec ord. CPT: 77504-Tujmyub Occipital (bilateral) Procedure code (CPT) selection complete Results Reviewed Results Reviewed: 02/13/24: MR CERVICAL SPINE WITHOUT CONTRAST FINDINGS: Straightening of the normal cervical lordosis. No significant spondylolisthesis. Cervical vertebral body heights are maintained. Scattered intraosseous hemangiomas are noted. Mildly heterogeneous background signal, particularly the clivus, is indeterminate. The cervical spinal cord is normal in signal intensity. C2-C3: Only visualized on the sagittal sequence. No significant spinal canal stenosis. The neural foramen are likely patent. C3-C4: Disc osteophyte complex indents the ventral thecal sac which is mildly narrowed. Small central disc protrusion. Uncovertebral spurring without significant neural foraminal stenosis. C4-C5: Disc osteophyte complex with suspected left subarticular/proximal foraminal disc protrusion that is suboptimally evaluated secondary to motion. The spinal canal is mild to moderately narrowed. Uncovertebral and facet arthropathy with moderate narrowing of the bilateral neural foramen. C5-C6: Shallow disc osteophyte complex without significant spinal canal stenosis. The neural foramen are patent. C6-C7: Trace disc osteophyte complex without significant spinal canal stenosis. Mild narrowing of the right neural foramen. C7-T1: No significant spinal canal or neural foraminal stenosis. T1-T2: Central disc extrusion with mild inferior migration indents the ventral thecal sac with mild canal stenosis. The neural foramen are patent. T4-T5: Only partially visualized. Probable mild to moderate left neural foraminal stenosis. IMPRESSION: Suboptimal evaluation secondary to motion. Within this constraint, no high-grade spinal canal stenosis. Up to moderate bilateral neural foraminal stenosis at C4-C5. Central disc extrusion at T1-T2 indents the ventral thecal sac with mild canal stenosis. Heterogeneous marrow signal is indeterminate and may represent red marrow. Correlation with laboratory values is recommended. 02/05/24: US SOFT TISSUE HEAD/NECK FINDINGS: Targeted ultrasound images were obtained by the user experience researcher of the area of concern as indicated by the patient in the base of the neck on the right and demonstrated a 0.8 x 0.4 x 0.6 cm hypoechoic wider than tall structure with subtle echogenic hilum characteristic of a lymph node. Radiologist was not in attendance. Images were later provided for interpretation. IMPRESSION: Area of concern as indicated by the patient in the base of the neck on the right corresponds with a 0.8 cm lymph node. Assessment & Plan Assessment & Plan (1) Myofascial pain syndrome: Code(s): M79.18 - Myalgia, other site Category: Medical (2) Occipital neuralgia: Code(s): M54.81 - Occipital neuralgia Category: Medical Plan Patient is status post bilateral occipital nerve block. Patient tolerated procedure well and was discharged home in stable condition with discharge instructions.? All questions were answered. We will follow-up in two weeks via telephone or in clinic to assess response to therapy. A follow-up appointment was made during today's visit. Scribed for Dr. Santillan by Chavo Carl resident medical officer, on 03/04/2024. I, Dr. Santillan, have personally reviewed and agree with the information entered by the scribe. Coding Level of Care Code Procedure Only Diagnoses Myofascial pain syndrome M79.18 Occipital neuralgia M54.81 CPT Codes Nerve Block - CPT: 65637-Ozzamon Occipital ([id number])
[2024-03-04 08:39] VITALS: BP 140/81; PULSE 89; RESP 14; O2SAT 99; BMI 47.1
== END 2024-03-04 09:38 | disposition home or self-care (01) ==
PROVIDERS: PCP Nurse Practitioner; Visit Provider Internal Medicine
DX: M54.81 Occipital neuralgia (principal)
CPT/HCPCS: 64405; 64450

== ENCOUNTER → 2024-03-04 07:54 | Outpatient (BNVA) | payer OTHER, SELFPAY | PROVIDERS: PCP Nurse Practitioner; Visit Provider Internal Medicine | DX: M79.18 Myalgia, other site (principal); M54.81 Occipital neuralgia | CPT/HCPCS: 64405; 64450; J2795 ==

== ENCOUNTER 2024-04-08 07:55 | Outpatient (AMB) | payer OTHER, SELFPAY ==
--- NOTE | 2024-04-08 07:55 | A.OFFVIS_ITS ---
Intake Visit Reasons: 6 month-CONF Intake Note: no issues except for the usual . Allergies Heparin Analogues [HEPARIN AGENTS] Allergy (Intermediate, Verified 04/08/24 07:56) HIVES, RASH, SEVERE BRUISING dulaglutide [From Trulicity] Allergy (Verified 04/08/24 07:56) Rash Medication List - Last Reconciled 04/08/24 by JASWANT Motta albuterol sulfate 0.63 mg (3 mL) inhalation QID PRN albuterol sulfate 90 mcg/actuation 1 inh inhalation QID PRN amitriptyline 25 mg PO BEDTIME atogepant (Qulipta) 60 mg PO DAILY 30 days baclofen 10mg qhs and 5mg bid prn muscle spasm orally bedtime; 30 days cholecalciferol (vitamin D3) 1,250 mcg PO QWEEK indomethacin 50 mg PO TID 30 days insulin glargine (Lantus Solostar U-100 Insulin) 20 units subcut BID magnesium oxide 400 mg PO BEDTIME 30 days metoclopramide HCl 5 - 10 mg (1 - 2 x 5 mg) PO Q4-6H 14 days MDD 6 tabs ondansetron 4 - 8 mg (1 - 2 x 4 mg) PO Q6-8H PRN 30 days riboflavin (vitamin B2) 400 mg PO DAILY 30 days thiamine HCl (vitamin B1) 100 mg PO DAILY 30 days tirzepatide (Mounjaro) 7.5 mg subcut QWEEK topiramate 75 - 100 mg (1.5 - 2 x 50 mg) PO BID 30 days ubrogepant (Ubrelvy) 50 - 100 mg (0.5 - 1 x 100 mg) PO ONCE PRN 30 days HPI Comments Details: Right-handed 43-yr-old female presents for f/u televideo visit via [facility]- for headache, dizziness, neck pain Pt has had made some gains, but still has symptoms every day. She still has some more severe days. She may have a few good hours during the week. Pt has been intentionally losing wt- now 214lbs. Pt did have bilateral occipital nerve block through pain management, but this seemed to worsen everything, and cause her a set back. Eletriptan was not very effective. She received Qulipta 60mg- but never started as she thought she was supposed to be taking indomethacin instead. Using Indomethacin 25mg tid- has reduced stabbing head pains by 10% but is tolerating well. She is working with PT- they are doing dry needling which does help. She is wondering what the alternative is once her PT sessions are completed. The migraine attacks are now more located in her bilateral buddhist pain, this has been worse in the past 2 months. The pain makes her feel heavy. Baseline headache characteristics: 1- Headache is throbbing/pressure, always in the lower occipital/neck/shoulder region (again now in the temples as well), and can sometimes move into the forehead and face, rarely in the crown of the head. A/w brain fog, room spinning or not right in space dizziness, nausea, osmophobia, photophobia, phonophobia, allodynia, and previously right sided facial swelling.. 2- Brief severe sharp stabbing pains in the occipital region- can have several in 1 day, and then may have a few days w/o an attack. She cannot reproduce this, even w/ palpation. She is having muscle spasms in the posterior neck and the occipital area- comes and goes throughout the day. She continues to have dizziness, maybe only 10% decreased. She has been noticing increased RUE pins, needles, numbness. Not sure if she is having RUE wekaness, as she feels weak all overall. She has a remote h/o bilateral carpal tunnel repair. MR/MR cervical spine wo con IMPRESSION: -Suboptimal evaluation secondary to motion. Within this constraint, no high- grade spinal canal stenosis. Up to moderate bilateral neural foraminal stenosis at C4-C5. -Central disc extrusion at T1-T2 indents the ventral thecal sac with mild canal stenosis. -Heterogeneous marrow signal is indeterminate and may represent red marrow. Correlation with laboratory values is recommended. [facility] Medical History (Updated 04/08/24 @ 19:27 by JASWANT Motta) DVT (deep venous thrombosis) Chiari malformation type II COVID-19 Asthma Diabetes Surgical History [place] teeth extracted Hx of carpal tunnel repair Hx of tonsillectomy Hx of knee surgery Social History Household Members: Family Housing: House Do you presently have visiting nurse or other home services: No Alcohol intake: never Patient Tobacco Use Status: Never used Tobacco Advance Directives Date on File: 06/29/22 service: No Current occupational status: employed Physical Exam Const General: cooperative and no acute distress Orientation/consciousness: patient oriented x3 Resp Effort & Inspection: normal respiratory effort and able to speak in complete sentences Neuro General: patient oriented x3 Cognition (Neuro): normal cognition Psych Appearance: grossly normal Mental Status: mental status grossly normal Speech and movement: Normal speech and movement present Affect: normal affect Attitude: cooperative Telehealth Telehealth Telehealth Platform: [facility] Location of provider rendering services: practice address Location of patient: address on file Patient Identification confirmed using: Name, : Yes Telehealth method: video Patient verbally consented to treatment: Yes Patient verbally consented to billing insurance company: Yes Patient informed of any privacy concerns related to visit: Yes Minutes spent on Phone/Video with Pt.: 36 Assessment & Plan Assessment & Plan (1) Chronic migraine without aura: Code(s): G43.709 - Chronic migraine without aura, not intractable, without status migrainosus Category: Medical (2) Myofascial pain syndrome: Code(s): M79.18 - Myalgia, other site Category: Medical (3) Obstructive sleep apnea: Code(s): G47.33 - Obstructive sleep apnea (adult) (pediatric) Category: Medical (4) Cervicalgia: Code(s): M54.2 - Cervicalgia Category: Medical (5) Neuroforaminal stenosis of cervical spine: Code(s): M48.02 - Spinal stenosis, cervical region Category: Medical Plan For cervicalgia: Previous neck US- 0.8cm lymph node. Reviewed c-spine MRI- Up to moderate bilateral neural foraminal stenosis at C4- C5. Central disc extrusion at T1-T2 indents the ventral thecal sac with mild canal stenosis. Heterogeneous marrow signal is indeterminate and may represent red marrow. Recent CBC- WNL Pt advised to undergo BUE EMG/NCS. Try taking baclofen more scheduled- Baclofen 10mg and Baclofen 5mg bid prn. ? For RACHAEL: Continue APAP w/ goal of using nightly > 4 hrs. Will f/u on order for nocturnal pulse oximetry reading x's 1 once on APAP. ? For overall headache management: Continue to optimize good self-care, including but not limited to maintaining a healthy diet, adequate fluid intake, adequate sleep, and engaging in regular physical activity. Track headaches. Continue PT for vestibular tx- at [facility], [facility] w/ Jazmin Dill PT. ? For IIH w/o papilledema: Brain MRA/MRV- normal Pt had previously stopped Acetazolamide 125mg po tid. Continue Topiramate 100mg qhs. Recheck CBC, CMP, ESR, CRP- as ordered F/u eye exam as scheduled. Pt to notify us w/ any abrupt onset vision changes. ? ? For acute headache treatment: Continue Metoclopramide prn. Eletriptan 40mg prn- not very effective. Trial Nurtec ODT 75mg qd prn, may take with eletriptan. Previous acute migraine medication trials: Tylenol- ineffective. Excedrin- ineffective. Sumatriptan 100mg tab- ineffective. Cyclobenzaprine 10mg qhs- causes excess drowsiness. Rizatriptan- ineffective. Ubrelvy- ineffective. Eletriptan- not fully effective. Acute migraine medication contraindications: None at this time ? For stabbing headache: Trial increasing Indomethacin from 25mg po tid to 50mg tis- taken w/ food. Future considerations- Tegretol trial. For migraine headache prevention medication: Continue Riboflavin 400mg qam Magnesium 400mg qhs- hold for now d/t loose stools. Continue Topiramate 100mg bid. Start Qulipta 60mg qd- start 1-2 weeks after increasing Indomethacin. If this is ineffective, will order Botox. Previous migraine prevention medication trials: Gabapentin- ineffective. Amitriptyline- ineffective. Emgality ineffective. Migraine prevention medication contraindications: BBs d/t asthma dx ? ?May continue to work remotely from home. Pt cannot drive in any capacity. Will follow-up upon review of above f/u in 3-4 months or sooner. Orders: Orders NE nerve conduction velocity Today G43.709 - Chronic migraine without aura, not intractable, without status migrainosus, G93.5 - Compression of brain, M48.02 - Spinal stenosis, cervical region, M54.2 - Cervicalgia, M79.18 - Myalgia, other site NE electromyogram (EMG) Today G43.709 - Chronic migraine without aura, not intractable, without status migrainosus, G93.5 - Compression of brain, M48.02 - Spinal stenosis, cervical region, M54.2 - Cervicalgia, M54.81 - Occipital neuralgia, M79.18 - Myalgia, other site, Z98.890 - Other specified postprocedural states Medications: New indomethacin administer with food or milk 50 mg PO TID 30 days 90 caps 3RF Changed From baclofen 5 - 10 mg (0.5 - 1 x 10 mg) PO BEDTIME 30 days 30 tabs 1RF To baclofen 10mg qhs and 5mg bid prn muscle spasm orally bedtime; 30 days 90 tabs 1RF Refilled atogepant (Qulipta) 60 mg PO DAILY 30 days 30 tabs 6RF Coding Level of Care Code Tele Est Pt Level 4 (64421) Diagnoses Chronic migraine without aura G43.709 Myofascial pain syndrome M79.18 Obstructive sleep apnea G47.33 Cervicalgia M54.2 Neuroforaminal stenosis of cervical spine M48.02
== END 2024-04-08 09:12 | disposition home or self-care (01) ==
LOC: HO.HSMS 07:55
PROVIDERS: PCP Nurse Practitioner; Visit Provider Nurse Practitioner Family
DX: G43.709 Chronic migraine without aura, not intractable, without status migrainosus (principal); M79.18 Myalgia, other site; G47.33 Obstructive sleep apnea (adult) (pediatric); M54.2 Cervicalgia; M48.02 Spinal stenosis, cervical region
CPT/HCPCS: 99214

== ENCOUNTER → 2024-04-08 07:55 | Outpatient (BNVA) | payer OTHER, SELFPAY | PROVIDERS: PCP Nurse Practitioner; Visit Provider Nurse Practitioner Family ==

== ENCOUNTER 2024-04-14 09:47 | Outpatient (REF) | payer OTHER, SELFPAY ==
[2024-04-14 10:17] LABS: MANUAL DIFF FLAG NO
[2024-04-14 10:34] LABS: Basophils Absolute Auto 0.1 X10*3/uL (0.0-0.2); Basophils Percent Auto 0.6 % (0-2); Eosinophils Absolute Auto 0.4 X10*3/uL (0.0-0.4); Eosinophils Percent Auto 5.5 % (0-4); Hematocrit 43.8 % (37.0-47.0); Hemoglobin 15.2 g/dl (12.0-16.0); Imm Gran Abs Auto 0.03 X10*3/uL (0.00-0.03); Imm Gran Pct Auto 0.4 % (0.0-0.4); Lymphocytes Absolute Auto 2.5 X10*3/uL (1.2-4.9); Lymphocytes Percent Auto 30.4 % (20-40); Mean Corpuscular HGB Conc 34.7 g/dl (31.0-35.0); Mean Corpuscular Volume 89.4 fL (80.0-98.0); Mean Platelet Volume 9.4 fL (9.4-12.3); Monocytes Absolute Auto 0.5 X10*3/uL (0.1-1.2); Monocytes Percent Auto 6.6 % (2-11); Neutrophils Absolute Auto 4.6 x10*3/uL (2.0-8.3); Neutrophils Percent Auto 56.5 % (45-73); Platelet Count 248 X10*3/uL (160-400); Red Cell Distribution Width 12.4 % (11.0-16.0); White Blood Count 8.1 X10*3/uL (4.8-10.8)
[2024-04-14 11:13] LABS: Erythrocyte Sedimentation Rate 21 MM/HR (0-20)
[2024-04-14 11:30] LABS: Alanine Aminotransferase 32 U/L (0-31); Albumin Level 4.3 g/dL (3.5-5.0); Alkaline Phosphatase 68 U/L (39-117); Anion Gap 13 (12-20); Aspartate Amino Transferase 20 U/L (5-31); Blood Urea Nitrogen 8 mg/dL (9-16); Calcium 9.3 mg/dL (8.4-10.2); Carbon Dioxide 25 mmol/L (22-29); Chloride 106 mmol/L (96-108); Estimated Glomerular Filt Rate > 60; Glucose Random 141 mg/dL (60-115); Potassium 4.3 mmol/L (3.3-5.1); Sodium 140 mmol/L (135-145); Total Protein 7.3 g/dL (6.5-8.0)
[2024-04-14 11:54] LABS: Vitamin B12 583 pg/mL (200-900)
[2024-04-16 08:56] LABS: CRP High Sensitivity 3.5 mg/L
== END 2024-04-14 09:48 | disposition home or self-care (01) ==
LOC: HO.LAB 09:47
PROVIDERS: Visit Provider Nurse Practitioner Family
DX: E11.9 Type 2 diabetes mellitus without complications (principal); R11.0 Nausea; R20.2 Paresthesia of skin; R63.4 Abnormal weight loss; R42 Dizziness and giddiness; G44.85 Primary stabbing headache
CPT/HCPCS: 36415; 80053; 82607; 85025; 85652; 86141

== ENCOUNTER 2024-04-15 13:08 | Outpatient (REF) | payer OTHER, SELFPAY ==
--- NOTE | 2024-04-15 13:13 | EMG_ITS ---
Chief complaint: Neck pain, right-sided arm pain, right hand numbness History of bilateral Carpal Tunnel Syndrome surgeries more than 5 years ago. Reason for referral: Evaluate for radiculopathy Referred by: Porsche Carr NP Procedure done: Bilateral upper extremities NCS/EMG Precautions and/or limitations: None The limb temperature was monitored continuously and remained between 32-36 degrees C during the performance of the NCS. Nerve Conduction Studies Anti Sensory Summary Table ?Stim Site NR Onset (ms) Norm Onset (ms) Peak (ms) Norm Peak (ms) O-P Amp (?V) Norm O-P Amp Site1 Site2 Delta-0 (ms) Dist (cm) Emeterio (m/s) Norm Emeterio (m/s) Left Median Anti Sensory (2nd Digit) Wrist ? 2.8 3.4 <3.6 31.8 >10 Wrist 2nd Digit 2.8 14.0 50 Right Median Anti Sensory (2nd Digit) Wrist ? 2.4 3.3 <3.6 38.5 >10 Wrist 2nd Digit 2.4 14.0 58 Right Radial Anti Sensory (Thumb) Forearm ? 1.3 1.9 <3.1 30.1 Forearm Thumb 1.3 0.0 Left Ulnar Anti Sensory (5th Digit) Wrist ? 1.8 3.1 <3.7 15.4 >15.0 Wrist 5th Digit 1.8 14.0 78 Right Ulnar Anti Sensory (5th Digit) Wrist ? 1.0 3.1 <3.7 29.1 >15.0 Wrist 5th Digit 1.0 22.0 220 Motor Summary Table ?Stim Site NR Onset (ms) Norm Onset (ms) O-P Amp (mV) Norm O-P Amp iAmp (mV) Amp (1st) (%) Site1 Site2 Delta-0 (ms) Dist (cm) Emeterio (m/s) Norm Emeterio (m/s) Left Median Motor (Abd Poll Brev) Wrist ? 3.7 <3.9 8.9 >4.5 10.6 100.0 Elbow Wrist 3.4 18.5 54 >45 Elbow ? 7.1 7.8 9.5 87.6 Right Median Motor (Abd Poll Brev) Wrist ? 3.7 <3.9 8.9 >4.5 10.7 100.0 Elbow Wrist 3.9 21.0 54 >45 Elbow ? 7.6 6.5 8.0 73.0 Left Ulnar Motor (Abd Dig Minimi) Wrist ? 2.8 <3.0 8.1 >5 9.7 100.0 B Elbow Wrist 2.9 16.5 57 >45 B Elbow ? 5.7 7.4 9.0 91.4 A Elbow B Elbow 1.8 10.0 56 >45 A Elbow ? 7.5 7.6 9.3 93.8 Right Ulnar Motor (Abd Dig Minimi) Wrist ? 2.6 <3.0 9.5 >5 11.7 100.0 B Elbow Wrist 3.2 18.0 56 >45 B Elbow ? 5.8 8.9 11.3 93.7 A Elbow B Elbow 1.8 10.0 56 >45 A Elbow ? 7.6 8.6 11.0 90.5 EMG ?Side Muscle Nerve Root Ins Act Fibs Psw Amp Dur Poly Recrt Int Pat Comment Right 1stDorInt Ulnar C8-T1 Nml Nml Nml Nml Nml 0 Nml Complete Right FlexCarRad Median C6-7 Nml Nml Nml Nml Nml 0 Nml Complete Right Biceps Musculocut C5-6 Nml Nml Nml Nml Nml 0 Nml Complete Right Triceps Radial C6-7-8 Nml Nml Nml Nml Nml 0 Nml Complete Right Deltoid Axillary C5-6 Nml Nml Nml Nml Nml 0 Nml Complete Left 1stDorInt Ulnar C8-T1 Nml Nml Nml Nml Nml 0 Nml Complete Left FlexCarRad Median C6-7 Nml Nml Nml Nml Nml 0 Nml Complete Left Biceps Musculocut C5-6 Nml Nml Nml Nml Nml 0 Nml Complete Left Triceps Radial C6-7-8 Nml Nml Nml Nml Nml 0 Nml Complete Left Deltoid Axillary C5-6 Nml Nml Nml Nml Nml 0 Nml Complete Paraspinal EMG ?Side Muscle Nerve Root Ins Act Fibs Psw Comment Right Cervical Upper Rami Nml Nml Nml Right Cervical Mid Rami Nml Nml Nml Right Cervical Lower Rami Nml Nml Nml Left Cervical Upper Rami Nml Nml Nml Left Cervical Mid Rami Nml Nml Nml Left Cervical Lower Rami Nml Nml Nml FINDINGS: All motor and sensory nerves tested showed normal latencies, amplitudes and conduction velocities. Concentric needle EMG was performed in selected muscles of the bilateral upper extremities and cervical paraspinals. Study did not reveal signs of electric abnormalities as shown in the table above. IMPRESSION: 1. This is a normal study. 2. There is no electrodiagnostic evidence for median neuropathy, ulnar neuropathy, brachial plexopathy, or cervical radiculopathy. Thank you for your kind referral. Alina Guevara MD, SILVIO Board Certified, [place] Board [employer] and [employer] (ABPMR) Board Certified, [place] Board of Electrodiagnostic [employer] (ABEM) CODIN 18099 x 2 MTDD
== END 2024-04-15 13:09 | disposition home or self-care (01) ==
LOC: HO.NEURO 13:08
PROVIDERS: PCP Obstetrics & Gynecology; Visit Provider Nurse Practitioner Family
DX: M48.02 Spinal stenosis, cervical region (principal); M54.2 Cervicalgia; M79.18 Myalgia, other site; G43.709 Chronic migraine without aura, not intractable, without status migrainosus; G93.5 Compression of brain; M54.81 Occipital neuralgia; Z98.890 Other specified postprocedural states
CPT/HCPCS: 95886; 95911

== ENCOUNTER → 2024-04-15 13:13 | Outpatient (BNV) | payer OTHER, SELFPAY | PROVIDERS: PCP Obstetrics & Gynecology; Visit Provider Physical Medicine & Rehabilitation | DX: M54.2 Cervicalgia (principal); M79.601 Pain in right arm; R20.0 Anesthesia of skin; R20.2 Paresthesia of skin | CPT/HCPCS: 95886; 95911 ==

== ENCOUNTER 2024-06-11 13:31 | Emergency (ER) | payer OTHER, SELFPAY ==
--- NOTE | ~2024-06-11 | CT_ITS ---
EXAMINATION: CT HEAD WITHOUT CONTRAST CLINICAL INFORMATION: Posterior headache. COMPARISON: CTA head from 10/01/2023. Brain MRI from 12/17/2018. TECHNIQUE: Contiguous axial imaging was performed from the skull base to vertex without intravenous administration of contrast. This CT examination was performed using dose optimization techniques as appropriate, variously including the following: *Automated exposure control. *Adjustment of mA and/or kV according to patient size (this includes techniques or standardized protocols for targeted exams where dose is matched to indication/reason for exam; i.e. extremities or head). *Use of iterative reconstruction technique. DLP: 695 mGy-cm FINDINGS: There is no evidence of acute intracranial hemorrhage or edematous territorial infarction. Bhakta-white matter differentiation is preserved. There is no abnormal attenuation within the brain parenchyma. The ventricles are normal in morphology and size. No evidence for obstructive hydrocephalus. The cerebellar tonsils are mildly low lying, positioned 0.5 cm below the foramen magnum (similar to prior exam). The CSF space of the foramen magnum is maintained. No abnormal mass effect or midline shift. No extra-axial fluid collections. No acute soft tissue or osseous abnormalities. Mild mucosal thickening of the paranasal sinuses. The mastoid air cells and middle ear cavities are clear. CT/CT head/brain wo IV con IMPRESSION: 1. No evidence of acute intracranial hemorrhage or edematous territorial infarction. 2. 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 Electronically signed by: Ulisses Bonilla DO 06/11/2024 04:57 PM EDT
[2024-06-11 14:13] VITALS: BP 124/94; PULSE 98; RESP 18; TEMP 36.9; O2SAT 96; BMI 43.1
--- NOTE | 2024-06-11 14:15 | ED.HA ---
HPI - Headache General Chief Complaint: Headache Stated Complaint: migraines-swelling on head Time Seen by Provider: 06/11/24 17:25 Source: patient Mode of arrival: ambulatory Limitations: no limitations History of Present Illness ED Provider: DR. Garcia HPI Narrative: 43-year-old female with history of chronic migraine, idiopathic intracranial hypertension, budd Chiari 1 malformation, occipital neuralgia came in for evaluation of headache, dizziness, neck pain started 3 days ago, patient has suffered from chronic headache follow-up with neurologist, patient stated that she has been taking her migraine medication, for the past 3 days headache is not going away, mild photophobia, neck pain but no stiffness, no slurred speech, no weakness, no numbness. Patient had multiple visits in the past for similar headache that the patient confirmed that is similar to her previous headache in the past. Patient has been worked up by the neurologist for headache, had head MRA without aneurysm or vascular malformation, patient also had brain venography showed no cavernous sinus problem, Related Data Home Medications ?Medication ?Instructions ?Recorded ?Confirmed insulin glargine 100 unit/mL (3 20 unit subcut BID 01/07/23 04/08/24 mL) subcutaneous pen (Lantus Solostar U-100 Insulin) tirzepatide 7.5 mg/0.5 mL 7.5 mg subcut QWEEK 02/18/24 04/08/24 subcutaneous pen injector (Mounjaro) amitriptyline 25 mg tablet 25 mg PO BEDTIME 03/02/24 04/08/24 cholecalciferol (vitamin D3) 1,250 1,250 mcg PO QWEEK 03/02/24 04/08/24 mcg (50,000 unit) capsule Previous Rx's ?Medication ?Instructions ?Recorded albuterol sulfate 90 mcg/actuation 1 inh inhalation QID PRN shortness 10/29/21 aerosol inhaler of breath or wheezing #8.5 grams albuterol sulfate 0.63 mg/3 mL 0.63 mg (3 mL) inhalation QID PRN 07/03/22 solution for nebulization shortness of breath or wheezing #75 mL magnesium oxide 400 mg (241.3 mg 400 mg PO BEDTIME 30 days #30 tabs 08/13/23 magnesium) tablet riboflavin (vitamin B2) 400 mg 400 mg PO DAILY 30 days #30 tabs 08/13/23 tablet ondansetron 4 mg disintegrating 4 - 8 mg (1 - 2 x 4 mg) PO Q6-8H 10/29/23 tablet PRN nausea and vomiting 30 days #40 tabs topiramate 50 mg tablet 75 - 100 mg (1.5 - 2 x 50 mg) PO 11/21/23 BID 30 days #60 tabs metoclopramide HCl 5 mg tablet 5 - 10 mg (1 - 2 x 5 mg) PO Q4-6H 11/22/23 nausea and vomiting 14 days #84 tabs thiamine HCl (vitamin B1) 100 mg 100 mg PO DAILY 30 days #30 tabs 12/17/23 tablet ubrogepant 100 mg tablet (Ubrelvy) 50 - 100 mg (0.5 - 1 x 100 mg) PO 12/26/23 ONCE PRN migraine headache 30 days #16 tabs atogepant 60 mg tablet (Qulipta) 60 mg PO DAILY 30 days #30 tabs 04/08/24 baclofen 10 mg tablet See Rx Instructions PO BEDTIME 30 04/08/24 days #90 tabs indomethacin 50 mg capsule 50 mg PO TID 30 days #90 caps 04/08/24 ndstwdtbgp-gnjjktsoveolg-eggzsubj 1 cap PO Q8H PRN headache #10 caps 06/11/24 50 mg-300 mg-40 mg capsule (Fioricet) Allergies Allergy/AdvReac Type Severity Reaction Status Date / Time Heparin Analogues Allergy Intermediate HIVES, Verified 06/11/24 14:17 [HEPARIN AGENTS] RASH, SEVERE BRUISING dulaglutide [From Trulicity] Allergy Rash Verified 06/11/24 14:17 Review of Systems Review of Systems: All other systems are reviewed and are negative Constitutional: Reports as per HPI and Reports no additional constitutional complaints Eyes: Reports as per HPI and Reports no additional eye complaints Reports system reviewed and no additional complaints, except as documented Cardiovascular: Reports as per HPI and Reports no additional cardiovascular complaints Respiratory: Reports as per HPI and Reports no additional respiratory complaints Gastrointestinal: Reports as per HPI and Reports no additional gastrointestinal complaints Genitourinary: Reports no additional female genitourinary complaints Musculoskeletal: Reports no additional musculoskeletal complaints Skin/Breast: Reports system reviewed and no additional complaints, except as docu Psychiatric: Reports no additional psychiatric complaints Endocrine: Reports no additional endocrine complaints Hematologic/Lymphatic: Reports no additional hematologic/lymphatic complaints Allergic/Immunologic: Reports no additional allergic/immunologic complaints Reports system reviewed and no additional complaints, except as documented and Reports Abnormal speech present [facility] Past Medical History Medical History DVT (deep venous thrombosis) Chiari malformation type II COVID-19 Asthma Diabetes Surgical History [place] teeth extracted Hx of carpal tunnel repair Hx of tonsillectomy Hx of knee surgery Social History Social History Household Members: Family Housing: House Do you presently have visiting nurse or other home services: No Alcohol intake: never Patient Tobacco Use Status: Never used Tobacco Advance Directives: Yes Advance Directives on File: Yes Advance Directives Date on File: 06/29/22 Do you have a plan to hurt others: No Plan service: No Current occupational status: employed Physical Exam Vital Signs: Vital Signs: Last Vital Signs Temp 98.4 F 06/11/24 14:13 Pulse 98 06/11/24 14:13 Resp 18 06/11/24 14:13 BP 124/94 H 06/11/24 14:13 Pulse Ox 96 06/11/24 14:13 O2 Del Method Room Air 06/11/24 14:13 BMI result Body Mass Index 43.1 Vital signs have been reviewed and appear to be correct. Blood pressure elevated. Heart rate normal. Respiratory rate normal. Temperature normal. Oxygen saturation normal. Appearance: Alert. Oriented X3. No acute distress. Head: Normal external exam. Normocephalic. Atraumatic. No Buchanan signs noted. No raccoon eyes noted Eyes: PERRLA. EOMI. Conjunctiva and sclera normal. Eyelids normal. ENT: TM's Normal. Pharynx normal. Uvula midline. Moist mucous membranes. No trismus noted. No drooling noted. No muffled voice noted. Neck: Normal inspection. Neck supple. FROM. No adenopathy. Thyroid Normal. No meningeal signs. No neck mass noted. CVS: Normal heart rate and rhythm. Heart sound normal. No murmurs noted. Pulses normal throughout. Respiratory: No respiratory distress. Painless inspiration. Breath sounds normal. No wheezes/rales/rhonchi noted. Chest nontender. No accessory muscle usage noted or decreased air movement noted. Abdomen: Soft and nontender. Bowel sounds normal in all 4 quadrants. No distention noted. No organomegaly noted. No visible injury noted. Back: No CVA tenderness. Full range of motion noted. Skin: Skin warm and dry. Normal skin color. Normal skin turgor. No rashes/lesions/lacerations noted. Extremities: No lower extremity edema. Extremities exhibit normal range of motion. Extremities nontender. Neuro: Oriented X 3. Cranial nerve exam: II-XII are grossly intact No motor deficit. No sensory deficit. Reflexes normal. Course Course Course Narrative: This is a Rapid Medical Examination (RME) performed by Georgina Joe PA-C in triage. Full HPI, ROS, assessment and treatment plan per primary provider in the Main ED. 43 yo female hx of IIH and chronic migraines here for eval of migraine x4 days. +assoc dizziness, nausea, vomiting which is typical for her migraines. admits to swelling to right neck/posterior head and popping/ringing in L ear which has resolved. Takes numerous medications for her migraines including -- amitriptyline, baclofen, indomethacin, Ubrelvy and topiramate. denies fever, vision changes, ear pain. + noted area of swelling to left posterior head. nontender. no palpatable deformity. no midline c spine tenderness or step off deformity. exam nonfocal. perrla, no photophobia. ambulating w/ steady gait. Plan: labs, viral serology, ct head Reevaluation(s) Reevaluation #1: 43-year-old female with history of chronic migraine patient had previous workup for migraine by neurologist patient has no cerebral aneurysm, no cavernous sinus disease, presented with typical migraine for the patient improved after given morphine, will discharge and follow-up with PCP/neurologist. Time: 21:00 Reevaluation #2: Patient received Fioricet in the emergency department feels better. Will discharge on Fioricet. Time: 22:27 Medications Administered Discontinued Medications Generic Name Dose Route Start Last Admin Trade Name Freq PRN Reason Stop Dose Admin Acetaminophen/Butalbital/Caffeine 1 tab 06/11/24 21:15 06/11/24 21:31 Butalb/Acetamin/Caff 50/325/40 Tablet PO 06/11/24 21:16 1 tab ONCE ONE Administration Diphenhydramine HCl 25 mg 06/11/24 17:27 06/11/24 18:20 Diphenhydramine Hcl 50 Mg/Ml Vial IVPUSH 06/11/24 17:28 25 mg ONCE ONE Administration Sodium Chloride 1,000 mls @ 999 mls/hr 06/11/24 17:27 06/11/24 20:09 Ns IV 06/11/24 18:27 Infused .Q1H1M ONE Infusion Ketorolac Tromethamine 30 mg 06/11/24 17:32 06/11/24 18:21 Ketorolac Tromethamine 30 Mg/Ml Vial IVPUSH 06/11/24 17:33 30 mg ONCE ONE Administration Morphine Sulfate 2 mg 06/11/24 19:16 06/11/24 20:08 Morphine Sulfate 2 Mg/Ml Cartridge IVPUSH 06/11/24 19:17 2 mg ONCE ONE Administration Protocol Ondansetron HCl 4 mg 06/11/24 17:27 06/11/24 18:20 Ondansetron Hcl 4 Mg/2 Ml Vial IVPUSH 06/11/24 17:28 4 mg ONCE ONE Administration Medical Decision Making Differential Diagnosis Differential Diagnoses: The differential diagnosis associated with the presentation includes (SAH, cerebral aneurysm, migraine, occipital neuralgia, meningitis, severe anemia, electrolyte derangement.) Admission/Observation Consideration of admission/observation: Escalation of care including admission/observation considered Lab Data MDM Lab Attestation statement: I reviewed the patient's lab results. 06/11/24 14:22 06/11/24 14:22 Labs: Lab Results 06/11/24 Range/Units 14:22 WBC 10.1 (4.8-10.8) X10*3/uL RBC 4.97 (4.20-5.50) X10*6/uL Hgb 15.2 (12.0-16.0) g/dl Hct 43.8 (37.0-47.0) % MCV 88.1 (80.0-98.0) fL MCH 30.6 (27.0-33.0) pg MCHC 34.7 (31.0-35.0) g/dl RDW 12.1 (11.0-16.0) % Plt Count 291 (160-400) X10*3/uL MPV 8.7 L (9.4-12.3) fL Immature Gran % (Auto) 0.5 H (0.0-0.4) % Neut % (Auto) 62.6 (45-73) % Lymph % (Auto) 24.4 (20-40) % [place] % (Auto) 6.6 (2-11) % Eos % (Auto) 5.5 H (0-4) % Baso % (Auto) 0.4 (0-2) % Lymph # (Auto) 2.5 (1.2-4.9) X10*3/uL [place] # (Auto) 0.7 (0.1-1.2) X10*3/uL Eos # (Auto) 0.6 H (0.0-0.4) X10*3/uL Baso # (Auto) 0.0 (0.0-0.2) X10*3/uL Abs Immat Gran (auto) 0.05 H (0.00-0.03) X10*3/uL Absolute Neuts (auto) 6.3 (2.0-8.3) x10*3/uL Absolute Nucleated RBC 0.000 (0.0-0.012) X10*3/uL Nucleated RBC % (auto) 0.0 (0.0-0.2) /100WBC Sodium 141 (135-145) mmol/L Potassium 4.2 (3.3-5.1) mmol/L Chloride 108 (96-108) mmol/L Carbon Dioxide 24 (22-29) mmol/L Anion Gap 13 (12-20) BUN 8 L (9-16) mg/dL Creatinine 0.71 (0.5-1.4) mg/dL Estim Creat Clear Calc 104.3 Estimated GFR > 60 Random Glucose 169 H (60-115) mg/dL Calcium 9.8 (8.4-10.2) mg/dL Magnesium 1.9 (1.6-2.6) mg/dL Total Bilirubin 1.0 (0.0-1.0) mg/dL AST 16 (5-31) U/L ALT 26 (0-31) U/L Alkaline Phosphatase 70 (39-117) U/L Total Protein 7.4 (6.5-8.0) g/dL Albumin 4.2 (3.5-5.0) g/dL Independent Interpretation I performed an independent interpretation of an: CT Scan (Head CT: No acute intracranial pathology.) Radiology Impression Discussion of test interpretation with radiology: I have reviewed the radiologist's reading. Discharge Plan Discharge Clinical Impression: Migraine Patient Disposition: Home, Self-Care Instructions: Migraine Headache (ED) Prescriptions: New umexkhkauj-bjicriciqnljf-wtkv [Fioricet] 50-300-40 mg capsule 1 cap PO Q8H PRN (Reason: headache) Qty: 10 0RF No Action topiramate 50 mg tablet 75 - 100 mg PO BID 30 Days Qty: 60 1RF metoclopramide HCl 5 mg tablet 5 - 10 mg PO Q4-6H MDD 6 tabs 14 Days Qty: 84 0RF thiamine HCl (vitamin B1) 100 mg tablet 100 mg PO DAILY 30 Days Qty: 30 6RF Ubrelvy 100 mg tablet 50 - 100 mg PO ONCE PRN (Reason: migraine headache) 30 Days Qty: 16 3RF Rx Instructions: take at onset of migraine, may repeat in 2hrs (may take w/ Ibuprofen) albuterol sulfate 90 mcg/actuation HFA aerosol inhaler 1 inh inhalation QID PRN (Reason: shortness of breath or wheezing) Qty: 8.5 0RF albuterol sulfate 0.63 mg/3 mL solution for nebulization 0.63 mg inhalation QID PRN (Reason: shortness of breath or wheezing) Qty: 75 0RF insulin glargine [Lantus Solostar U-100 Insulin] 100 unit/mL (3 mL) insulin pen 20 unit subcut BID riboflavin (vitamin B2) 400 mg tablet 400 mg PO DAILY 30 Days Qty: 30 6RF magnesium oxide 400 mg (241.3 mg magnesium) tablet 400 mg PO BEDTIME 30 Days Qty: 30 6RF Rx Instructions: may hold for loose stools ondansetron 4 mg tablet,disintegrating 4 - 8 mg PO Q6-8H PRN (Reason: nausea and vomiting) 30 Days Qty: 40 1RF Mounjaro 7.5 mg/0.5 mL pen injector 7.5 mg subcut QWEEK Qulipta 60 mg tablet 60 mg PO DAILY 30 Days Qty: 30 6RF baclofen 10 mg tablet See Rx Instructions PO BEDTIME 30 Days Qty: 90 1RF Rx Instructions: 10mg qhs and 5mg bid prn muscle spasm orally bedtime; indomethacin 50 mg capsule 50 mg PO TID 30 Days Qty: 90 3RF Rx Instructions: administer with food or milk amitriptyline 25 mg tablet 25 mg PO BEDTIME cholecalciferol (vitamin D3) 1,250 mcg (50,000 unit) capsule 1,250 mcg PO QWEEK Referrals: Beckie Reece MD [Physician] - Print Language: Belarusian
[2024-06-11 14:29] LABS: MANUAL DIFF FLAG NO
[2024-06-11 14:37] LABS: Basophils Percent Auto 0.4 % (0-2); Eosinophils Absolute Auto 0.6 X10*3/uL (0.0-0.4); Eosinophils Percent Auto 5.5 % (0-4); Hematocrit 43.8 % (37.0-47.0); Hemoglobin 15.2 g/dl (12.0-16.0); Imm Gran Abs Auto 0.05 X10*3/uL (0.00-0.03); Imm Gran Pct Auto 0.5 % (0.0-0.4); Lymphocytes Absolute Auto 2.5 X10*3/uL (1.2-4.9); Lymphocytes Percent Auto 24.4 % (20-40); Mean Corpuscular HGB Conc 34.7 g/dl (31.0-35.0); Mean Corpuscular Hemoglobin 30.6 pg (27.0-33.0); Mean Corpuscular Volume 88.1 fL (80.0-98.0); Mean Platelet Volume 8.7 fL (9.4-12.3); Monocytes Absolute Auto 0.7 X10*3/uL (0.1-1.2); Monocytes Percent Auto 6.6 % (2-11); Neutrophils Absolute Auto 6.3 x10*3/uL (2.0-8.3); Neutrophils Percent Auto 62.6 % (45-73); Platelet Count 291 X10*3/uL (160-400); Red Blood Count 4.97 X10*6/uL (4.20-5.50); Red Cell Distribution Width 12.1 % (11.0-16.0); White Blood Count 10.1 X10*3/uL (4.8-10.8)
[2024-06-11 14:43] LABS: Alanine Aminotransferase 26 U/L (0-31); Albumin Level 4.2 g/dL (3.5-5.0); Alkaline Phosphatase 70 U/L (39-117); Anion Gap 13 (12-20); Aspartate Amino Transferase 16 U/L (5-31); Blood Urea Nitrogen 8 mg/dL (9-16); Calcium 9.8 mg/dL (8.4-10.2); Carbon Dioxide 24 mmol/L (22-29); Chloride 108 mmol/L (96-108); Creatinine Clr Calc Pharmacy 104.3; Estimated Glomerular Filt Rate > 60; Glucose Random 169 mg/dL (60-115); Magnesium 1.9 mg/dL (1.6-2.6); Potassium 4.2 mmol/L (3.3-5.1); Sodium 141 mmol/L (135-145); Total Protein 7.4 g/dL (6.5-8.0)
[2024-06-11] MEDS: 0.9 % Sodium Chloride 1,000 ML 999 ML IV (18:16)
[2024-06-11] MEDS: diphenhydrAMINE HCL 50 MG/ML VIAL 25 MG IVPUSH (18:20)
[2024-06-11] MEDS: ondansetron HCL 4 MG/2 ML VIAL IVPUSH (18:20)
[2024-06-11] MEDS: Ketorolac Tromethamine 30 MG/ML VIAL IVPUSH (18:21)
[2024-06-11] MEDS: Morphine Sulfate 2 MG/ML CARTRIDGE IVPUSH (20:08)
--- NOTE | 2024-06-11 21:22 | PC.NURSE ---
pt reports allen not improved with morphine. MD ordered dilaudid however pt reports feels uncomfortable taking another narcotic. this RN suggested Fioricet as pt has never tried this medication previously for migraine ALLEN. pt and MD in agreement. order changed to fioricet will reassess pain after med.
[2024-06-11] MEDS: Butalb/Acetamin/Caff 50/325/40 TABLET 1 TAB PO (21:31)
--- NOTE | 2024-06-11 22:30 | PC.NURSE ---
pt reports ALLEN usually at baseline 5/10 and after taking fioricet ALLEN at 6/10. pt verbalizes sx improved and requesting to be d/c. aware.
[2024-06-11 23:04] VITALS: BP 131/78; PULSE 77; RESP 18; TEMP 37.2; O2SAT 97
== END 2024-06-11 23:04 | disposition home or self-care (01) ==
PROVIDERS: Physician Assistant Medical; Emergency Provider Emergency Medicine; PCP Nurse Practitioner
DX: G43.909 Migraine, unspecified, not intractable, without status migrainosus (principal); E11.9 Type 2 diabetes mellitus without complications; J45.909 Unspecified asthma, uncomplicated; Z79.4 Long term (current) use of insulin; Z79.899 Other long term (current) drug therapy
CPT/HCPCS: 36415; 70450; 80053; 83735; 85025; 96361; 96374; 96375; 99284; 99285; J1200; J1885; J2270; J2405

== ENCOUNTER 2024-06-24 12:44 | Outpatient (AMB) | payer OTHER, SELFPAY ==
--- NOTE | 2024-06-24 12:46 | A.OFFVIS_ITS ---
Vital Signs 06/24/24 12:57 Height 4 ft 11 in Weight 218 lb BMI 44.0 Intake Visit Reasons: [facility] [place] ED follow up Intake Note: Patient presents for follow up ED. patient was seen in ER for headache that was continuous for 7 days with sensitivity to sound and light. Allergies Heparin Analogues [HEPARIN AGENTS] Allergy (Intermediate, Verified 06/24/24 12:59) HIVES, RASH, SEVERE BRUISING dulaglutide [From Trulicity] Allergy (Verified 06/24/24 12:59) Rash Medication List - Last Reconciled 06/24/24 by JASWANT Motta albuterol sulfate 0.63 mg (3 mL) inhalation QID PRN albuterol sulfate 90 mcg/actuation 1 inh inhalation QID PRN amitriptyline 25 mg PO BEDTIME atogepant (Qulipta) 60 mg PO DAILY 30 days baclofen 10mg qhs and 5mg bid prn muscle spasm orally bedtime; 30 days rxobgsbrmo-bwaqqaloaglfe-yfkg 50-300-40 mg (Fioricet) 1 cap PO Q8H PRN cholecalciferol (vitamin D3) 1,250 mcg PO QWEEK indomethacin 50 mg PO TID 30 days insulin glargine (Lantus Solostar U-100 Insulin) 20 units subcut BID magnesium oxide 400 mg PO BEDTIME 30 days metoclopramide HCl 5 - 10 mg (1 - 2 x 5 mg) PO Q4-6H 14 days MDD 6 tabs ondansetron 4 - 8 mg (1 - 2 x 4 mg) PO Q6-8H PRN 30 days riboflavin (vitamin B2) 400 mg PO DAILY 30 days thiamine HCl (vitamin B1) 100 mg PO DAILY 30 days tirzepatide (Mounjaro) 7.5 mg subcut QWEEK topiramate 75 - 100 mg (1.5 - 2 x 50 mg) PO BID 30 days ubrogepant (Ubrelvy) 50 - 100 mg (0.5 - 1 x 100 mg) PO ONCE PRN 30 days HPI Comments Details: 43-yr-old female presents for f/u visit. Pt had reached out in mid-late May. She was having increased temporal pressure headache and tinnitus- buzzing/ear fullness. We advised her to increase the topiramate to 125mg bid. However, headaches worsened and she went to [facility] [place] ER- was tx'd w/ migraine cocktail, morphine, and then Fioricet. Since, she has continued to have good and bad days. She cannot identify any reasoning for when she has good vs bad days. She continues to have dizziness She is having muscle spasms in the posterior neck and the occipital area- comes and goes throughout the day. She is still not driving. When she looks either right or left, has blurry vision, it is hard to see if a car would be coming. Neck movement can still trigger cervical pain and muscle spasm. She is till working w/ PT- doing dry needling which does help some. Recent f/u eye exam- did not show papilledema. She has returned the CPAP- she could not sleep with it despite trying 3 masks. She states her blood sugars have been better controlled. Trying to lose weight, but may have periods where she is not eating as well as she would like to. Generally does not take added salt. She is still working 10 hr days, as she needs to be able to drive at least 2 hrs to and from job sites. Baseline headache characteristics: 1- Headache is throbbing/pressure, temples, lower occipital/neck/shoulder region a/w brain fog, room spinning or not right in space dizziness, nausea, osmophobia, photophobia, phonophobia, allodynia, and previously right sided facial swelling.. 2- Brief severe sharp stabbing pains in the occipital region- can have several in 1 day, and then may have a few days w/o an attack. She cannot reproduce this, even w/ palpation. Previous consults: January 2024- Dr Javon Vivas at [facility] [place], Pt was offered trigger point injection tx, but pt opted to do this more locally. January 2024- Юлия Bello MD- Pt states she was also told her headache was more cervicogenic and not r/t to elevated intracranial pressure as she does not have papilledema, thus she stopped Acetazolamide at that time. Previous work-up: 06/11/24, CT/CT head/brain wo IV con IMPRESSION: 1. No evidence of acute intracranial hemorrhage or edematous territorial infarction. 2. 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 04/15/24, [facility] EMG/NCS, IMPRESSION: 1. This is a normal study. 02/13/24, MR/MR cervical spine wo con IMPRESSION: -Suboptimal evaluation secondary to motion. Within this constraint, no high- grade spinal canal stenosis. Up to moderate bilateral neural foraminal stenosis at C4-C5. -Central disc extrusion at T1-T2 indents the ventral thecal sac with mild canal stenosis. -Heterogeneous marrow signal is indeterminate and may represent red marrow. Correlation with laboratory values is recommended. 02/05/24, US/US soft tiss head and/or neck IMPRESSION: Area of concern as indicated by the patient in the base of the neck on the right corresponds with a 0.8 cm lymph node. 10/25/23, MR/MR venography head wo/w con IMPRESSION: No cerebral venous thrombosis. Unremarkable MRV of the head. 10/01/23, MR/MR angio head wo con IMPRESSION: Normal MRA of the head. 09/20/23, In-lab PSG: AHI 9/hr, REM AHI 37/hr, O2 william 79% [facility]10/[facility], Lumbar Puncture: Opening pressure was 33 cm, w/ normal CSF studies. 08/08/2023?, Cervical Spine 4 or 5 Views FINDINGS: No evidence of fracture or dislocation. Mild bilateral foraminal st enosis at C3-C4 and C4-C5. IMPRESSION: Mild degenerative changes in the cervical spine are outlined above 07/06/2023, Brain MRI w/wo, IMPRESSION: 1. No evidence of acute/subacute infarction, mass effect, or abnormal enhancement. 2. Borderline low cerebellar tonsils with slight crowding at the foramen magnum but without compression of the cervicomedullary junction. The appearance is unchanged compared to the MRI from 10 years ago. 3. A few scattered foci of nonspecific T2 signal abnormality are seen in the supratentorial white matter. [facility]LY [facility] Medical History (Updated 06/24/24 @ 14:31 by JASWANT Motta) DVT (deep venous thrombosis) COVID-19 Asthma Diabetes Surgical History [place] teeth extracted Hx of carpal tunnel repair Hx of tonsillectomy Hx of knee surgery Social History Household Members: Family Housing: House Do you presently have visiting nurse or other home services: No Alcohol intake: never Patient Tobacco Use Status: Never used Tobacco Advance Directives Date on File: 06/29/22 service: No Current occupational status: employed Physical Exam Vital Signs: BMI result Body Mass Index 44.0 Const General: cooperative and no acute distress Orientation/consciousness: patient oriented x3 Resp Effort & Inspection: normal respiratory effort and able to speak in complete sentences Neuro Other: EOM intact w/o nystagmus, diplopia. General: patient oriented x3 and moves all extremities Cranial nerves: Yes CN's II-XII intact bilaterally Cognition (Neuro): normal cognition Psych Appearance: grossly normal Mental Status: mental status grossly normal Speech and movement: Normal speech and movement present Affect: normal affect Attitude: cooperative Assessment & Plan Assessment & Plan (1) Intracranial hypertension: Code(s): G93.2 - Benign intracranial hypertension Category: Medical (2) Intracranial hypertension: Code(s): G93.2 - Benign intracranial hypertension Category: Medical (3) Dizziness: Code(s): R42 - Dizziness and giddiness Category: Medical (4) Chronic migraine without aura: Code(s): G43.709 - Chronic migraine without aura, not intractable, without status migrainosus Category: Medical (5) Cervicalgia: Code(s): M54.2 - Cervicalgia Category: Medical (6) Blurry vision: Code(s): H53.8 - Other visual disturbances Category: Medical Plan For cervicalgia: Previous neck US- 0.8cm lymph node. Reviewed c-spine MRI- Up to moderate bilateral neural foraminal stenosis at C4- C5. Central disc extrusion at T1-T2 indents the ventral thecal sac with mild canal stenosis. Heterogeneous marrow signal is indeterminate and may represent red marrow. Recent CBC- WNL Follow-up [facility] EMG/NCS- normal.. Baclofen 10mg and Baclofen 5mg bid prn. ? For mild RACHAEL: Pt has returned CPAP- was not tolerating well. Will monitor. ? For overall headache and dizziness management: Continue to optimize good self-care, including but not limited to maintaining a healthy diet, adequate fluid intake, adequate sleep, and engaging in regular physical activity. Track headaches. Continue PT for vestibular tx- at [facility] [address], [facility] w/ Jazmin Dill PT. Will request ENT consult. Will also request opinion from [facility]. ? For IIH w/o papilledema: Brain MRA/MRV- mild low lying cerebellar tonsils w/ no indications of venous sinus stenosis. Start Furosemide 20mg qd- in hopes this decreases tinnitus, ear fullness, possibly headaches. Check labs in 2 weeks. Continue Topiramate 125mg qhs. Previous trials- Acetazolamide 125mg po tid- caused fatigue/numbness. ? For acute headache treatment: Continue Metoclopramide prn. ER gave pt Fioricet- advised to use sparingly. Again trial Nurtec 75mg qd prn. Previous acute migraine medication trials: Tylenol- ineffective. Excedrin- ineffective. Sumatriptan 100mg tab- ineffective. Cyclobenzaprine 10mg qhs- causes excess drowsiness. Rizatriptan- ineffective. Ubrelvy- ineffective. Eletriptan- not fully effective. Acute migraine medication contraindications: None at this time ? For stabbing headache: May hold Indomethacin 50mg tid- taken w/ food. Future considerations- Tegretol trial. ? For migraine headache prevention medication: Continue Riboflavin 400mg qam Magnesium 400mg qhs- hold for loose stools. Continue Topiramate 125mg bid. Start Botox for chronic migraine s/s. Stop Qulipta 60mg qd once Botox available. Previous migraine prevention medication trials: Gabapentin- ineffective. Amitriptyline- ineffective. Emgality ineffective. Migraine prevention medication contraindications: BBs d/t asthma dx ? ? ?May continue to work remotely from home. Pt cannot drive in any capacity. ? Will follow-up upon review of above f/u in 3 months or sooner. Orders: Orders Complete Blood Count Auto Diff Today E11.9 - Type 2 diabetes mellitus without complications, G93.2 - Benign intracranial hypertension, R42 - Dizziness and giddiness Comprehensive Met. Panel Today E11.9 - Type 2 diabetes mellitus without complications, G93.2 - Benign intracranial hypertension, R42 - Dizziness and giddiness Referrals Ear/Nose/Throat Referral G93.2 - Benign intracranial hypertension, R42 - Dizziness and giddiness Ophthalmology Referral G93.2 - Benign intracranial hypertension, G93.5 - Compression of brain, H53.8 - Other visual disturbances, R42 - Dizziness and giddiness Medications: New furosemide 20 mg PO DAILY 30 tabs 1RF 30 days G93.2 - Benign intracranial hypertension rimegepant (Nurtec ODT) 75 mg PO ONCE PRN 16 tabs 3RF migraine headache 30 days MDD 1 tab onabotulinumtoxinA (Botox) inject 155 units IM across forehead, scalp, and neck 200 units IM ONCE 1 ea 3RF 12 weeks G43.709 - Chronic migraine without aura, not intractable, without status migrainosus Coding Level of Care Code Est Pt Level 4 (49064) Complex EM visit Add On G2211 Diagnoses Intracranial hypertension G93.2 Dizziness R42 Chronic migraine without aura G43.709 Cervicalgia M54.2 Blurry vision H53.8
[2024-06-24 12:57] VITALS: BMI 44.0
== END 2024-06-24 13:59 | disposition home or self-care (01) ==
PROVIDERS: PCP Nurse Practitioner; Visit Provider Nurse Practitioner Family
DX: G93.2 Benign intracranial hypertension (principal); R42 Dizziness and giddiness; G43.709 Chronic migraine without aura, not intractable, without status migrainosus; M54.2 Cervicalgia; H53.8 Other visual disturbances
CPT/HCPCS: 99214; G2211

== ENCOUNTER → 2024-06-24 12:44 | Outpatient (BNVA) | payer OTHER, SELFPAY | PROVIDERS: PCP Nurse Practitioner; Visit Provider Nurse Practitioner Family ==

== ENCOUNTER 2024-08-13 09:21 | Outpatient (REF) | payer OTHER, SELFPAY ==
[2024-08-13 14:28] LABS: Adenovirus PCR Not Detected (Not Detect.); Bordetella parapertussis PCR Not Detected (Not Detect.); Bordetella pertussis PCR Not Detected (Not Detect.); Chlamydia pneumoniae PCR Not Detected (Not Detect.); Coronavirus 229E PCR Not Detected (Not Detect.); Coronavirus HKU1 PCR Not Detected (Not Detect.); Coronavirus NL63 PCR Not Detected (Not Detect.); Coronavirus OC43 PCR Not Detected (Not Detect.); Human metapneumovirus PCR Not Detected (Not Detect.); Influenza A PCR Not Detected (Not Detect.); Influenza B PCR Not Detected (Not Detect.); Mycoplasma pneumoniae PCR Not Detected (Not Detect.); Parainfluenza 1 PCR Not Detected (Not Detect.); Parainfluenza 2 PCR Not Detected (Not Detect.); Parainfluenza 3 PCR Not Detected (Not Detect.); Parainfluenza 4 PCR Not Detected (Not Detect.); RSV PCR Not Detected (Not Detect.); Rhino/Enterovirus PCR Not Detected (Not Detect.)
[2024-08-13 14:33] LABS: SARS-CoV-2 PCR Not Detected (Not Detect.)
== END 2024-08-13 09:22 | disposition home or self-care (01) ==
LOC: HO.LAB 09:21
PROVIDERS: PCP Nurse Practitioner Family; Visit Provider Physician Assistant
DX: J06.9 Acute upper respiratory infection, unspecified (principal); J45.901 Unspecified asthma with (acute) exacerbation
CPT/HCPCS: 87633; 94640

== ENCOUNTER 2024-08-13 09:21 | Outpatient (AMB) | payer OTHER, SELFPAY ==
--- NOTE | 2024-08-13 09:56 | MHC.OFFWIV ---
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 Patient Tobacco Use Status: Never used Tobacco Allergies Heparin Analogues [HEPARIN AGENTS] Allergy (Intermediate, Verified 08/13/24 09:58) HIVES, RASH, SEVERE BRUISING dulaglutide [From Trulicity] Allergy (Verified 08/13/24 09:58) Rash Do you need a note to return to daycare/school/sports/work: No HPI HPI Comments History of Present Illness Details Patient is a 44-year-old female with a past medical history of asthma complaining of worsening cough and shortness of breath over the last 2-3 days. She is here with her mother today. She states she has a dry cough, she denies any fevers, headaches, sinus pain or ear pain. She has been using her albuterol nebulizer and an albuterol inhaler around the clock without much relief. She states this happens a few times a year where she needs a steroid. She tells me she usually does better with a taper over a burst. She is not sure if she has a called on top of this that triggered it or just the change in weather. 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 [facility] Medical History (Updated 08/13/24 @ 10:23 by Aga Burnett PA-C) DVT (deep venous thrombosis) COVID-19 Asthma Diabetes Surgical History [place] teeth extracted Hx of carpal tunnel repair Hx of tonsillectomy Hx of knee surgery Social History Household Members: Family Housing: House Do you presently have visiting nurse or other home services: No Alcohol intake: never Patient Tobacco Use Status: Never used Tobacco Advance Directives Date on File: 06/29/22 service: No Current occupational status: employed Review of Systems Const All systems reviewed & are unremarkable except as noted in HPI and below Physical Exam Vital Signs: Last Vital Signs Pulse 71 08/13/24 09:57 BP 124/80 08/13/24 09:57 Pulse Ox 95 08/13/24 09:57 Oxygen Delivery Method Room Air 08/13/24 09:57 BMI result Body Mass Index 44.9 Const General: cooperative, healthy appearing, comfortable and no acute distress Orientation/consciousness: patient oriented x3 Limitations: no limitations HEENT Head: Yes normal to inspection Ears: hearing grossly normal bilaterally and external ears normal General nose exam: Normal external nose present, Normal nares present and No nasal discharge present Face and sinus: Yes normal facial exam Eyes General: appearance normal, both eyes and all related structures Neck Neck: Yes normal visual inspection Resp Effort & Inspection: normal respiratory effort, able to speak in complete sentences, Actively coughing, no respiratory distress, not tachypneic, no tripod positioning and no use of accessory muscles Auscultation: wheezes expiratory wheezes, inspiratory wheezes, scattered wheezes and throughout and diminished lung sounds bilateral and diffuse Cardio Rate: regular rate Rhythm: regular rhythm Heart sounds: normal S1 and S2 Skin General skin exam: no rashes or lesions noted Neuro General: patient oriented x3 Extrem General: Yes normal to inspection and Yes no clubbing, cyanosis or edema Office Procedures Nebulizer Treatment Nebulizer Treatment [id number] RX initial, or Nebulizer Subsequent Treatment Office Meds ipratropium 0.5 mg-albuterol 3 mg (2.5 mg base)/3 mL nebulization soln Performing Provider: Aga Burnett PA-C Performing Location: [facility] Administered by: Aga Burnett PA-C on 08/13/24 10:16 Dose Route Admin Location Dispensed Lot Number Expiration Date ND Aurist 3 mL inhalation 3 mL [id number] 12/18/25 11440-739-44 [employer] prednisone 20 mg tablet Performing Provider: Aga Burnett PA-C Performing Location: [facility] Administered by: Aga Burnett PA-C on 08/13/24 10:16 Dose Route Admin Location Dispensed Lot Number Expiration Date ND Aurist 20 mg PO 3 tab [id number] 12/18/25 Assessment & Plan Assessment & Plan (1) Asthma exacerbation, mild: Code(s): J45.901 - Unspecified asthma with (acute) exacerbation Plan: Patient is satting 95% on room air, visibly short of breath, lung sounds tight dim and wheezy. Gave her a DuoNeb nebulizer treatment in the office with some relief, lung sounds improved, O2 sat up to 96% on RA. Also gave her her 1st dose of prednisone 60 mg in the office. We will continue with a 10 day taper sent to her pharmacy. Recommended she continue to use her albuterol inhaler and nebulizer around the clock for the next couple of days. If her symptoms should get worse, she should call 911 or go to the emergency department. Patient and her mother verbalized understanding of this plan. (2) URI (upper respiratory infection): Code(s): J06.9 - Acute upper respiratory infection, unspecified Qualifiers: URI type: unspecified URI Qualified Code(s): J06.9 - Acute upper respiratory infection, unspecified Plan: Unclear if a respiratory infection triggered this so I sent a viral respiratory panel. Plan see above Orders: Orders Resp Pathogen Panel [place] [facility] [place] J06.9 - Acute upper respiratory infection, unspecified AMB Nebulizer Treatment Today J06.9 - Acute upper respiratory infection, unspecified, J45.901 - Unspecified asthma with (acute) exacerbation AMB Prednisone Adult Dose Today J06.9 - Acute upper respiratory infection, unspecified, J45.901 - Unspecified asthma with (acute) exacerbation Medications: New prednisone On days 1-3, take 2 tablets with breakfast. On days 4-6 take 1 tablet with breakfast, on days 7-10 take 0.5 tablet with breakfast 20 mg PO DAILY 11 tabs 0RF Coding Level of Care Code Est Pt Level 4 (58785) Diagnoses Asthma exacerbation, mild J45.901 Upper respiratory tract infection, unspecified type J06.9 URI type: unspecified URI CPT Codes Nebulizer Treatment - Nebulizer Treatment, initial or subsequent: [id number] RX initial, or Nebulizer Subsequent Treatment ([id number])
[2024-08-13 09:57] VITALS: BP 124/80; PULSE 71; O2SAT 95; BMI 44.9
== END 2024-08-13 10:42 | disposition home or self-care (01) ==
PROVIDERS: PCP Nurse Practitioner Family; Visit Provider Physician Assistant
DX: J45.901 Unspecified asthma with (acute) exacerbation (principal); J06.9 Acute upper respiratory infection, unspecified

== ENCOUNTER 2024-08-19 10:46 | Outpatient (AMB) | payer OTHER, SELFPAY ==
--- NOTE | 2024-08-19 08:21 | MHC.PC.OV ---
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/HEADACHE Intake Note: new patient to establish care Allergies Heparin Analogues [HEPARIN AGENTS] Allergy (Intermediate, Verified 08/19/24 11:32) HIVES, RASH, SEVERE BRUISING dulaglutide [From Trulicity] Allergy (Verified 08/19/24 11:32) Rash Medication List - Last Reconciled 08/19/24 by Madison Travis, INFORMATION SYSTEMS PLANNER-BC albuterol sulfate 90 mcg/actuation 1 inh inhalation QID PRN amitriptyline 25 mg PO BEDTIME atogepant (Qulipta) 60 mg PO DAILY 30 days baclofen 10mg qhs and 5mg bid prn muscle spasm orally bedtime; 30 days blood-glucose sensor (DexCeQur G7 Sensor device) As directed cdenglzztk-fqbspeplhyysx-ybnz 50-300-40 mg (Fioricet) 1 cap PO Q8H PRN cholecalciferol (vitamin D3) 1,250 mcg PO QWEEK furosemide 20 mg PO DAILY 30 days insulin glargine (Lantus Solostar U-100 Insulin) 20 units subcut BID magnesium oxide 400 mg PO BEDTIME 30 days ondansetron 4 - 8 mg (1 - 2 x 4 mg) PO Q6-8H PRN 30 days prednisone 20 mg PO DAILY riboflavin (vitamin B2) 400 mg PO DAILY 30 days rimegepant (Nurtec ODT) 75 mg PO Q OTHER DAY thiamine HCl (vitamin B1) 100 mg PO DAILY 30 days thiamine HCl (vitamin B1) 50 mg PO DAILY tirzepatide (Mounjaro) 12.5 mg subcut QWEEK topiramate 75 - 100 mg (1.5 - 2 x 50 mg) PO BID 30 days ubrogepant (Ubrelvy) 50 - 100 mg (0.5 - 1 x 100 mg) PO ONCE PRN 30 days Tobacco use date assessed: 08/19/24 Dental Screening Dental Screen Date: 08/19/24 Did you have a dental visit in the last 12 months?: Yes Did you have a dental problem in the last 6 months where you did not have access to dental care?: No Was dental information given to patient?: Patient has dentist HPI HPI Comments History of Present Illness Details 44 year old female with mild intermittent asthma, DM 2, history of COVID-19, DVT, Idiopathic intracranial with chiari malformation HTN, migraine headaches, IBS, Sleep apnea, Vit D def Status post carpal tunnel repair, tonsillectomy, R knee surgery 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 Colon ? Mammo due, last one 2022 at [facility] ? PAP due for pap, has IUD placed 3 years ago. ? Tdap 2018, declined flu Specialists: [facility] [place] [facility] Ophthalmology: 07/07/24 [place] [facility] and lasix, [facility] negative for retinopathy, visit q3mo [facility] [place] and [facility] Here today as a new patient, Mom is with her Previous PCP Jennie Mccain, no records available to me Asthma - PRN anthony only. Was ff'd by Pulm in past. Currently being treated for a flare w/ prednisone. DM a1c 8.2% today, currently using lantus 20 units bid, monjauro 12.5mg qweek. Not always taking her lantus BID. Reports she tried both forms of Metformin and this caused intolerable GI side effects. Tried glipizide did not like this. Has never been on a SGLT2. Lipids at goal 11/2023 not on statin. No on ACEI. No signs of nephropathy. Denies any hypoglycemia. Having some hyperglycemia > 300. Nothing greater than 400. ICH/Chiari - sx are frequent. Has seen multiple neuro including at [facility]. She has completed PT at [facility] in [place]. Most helpful was the needling. She has also tired Lots of different meds & treatments. She cont to have headaches, daily pain 5/10. She was passing out and feeling dizzy, having tinnitus for presenting sx initially. S/p LP pressure 33. She is active w/ Optho. Has not driven in 1 year d/t her ICH sx. RACHAEL not on CPAP cannot tolerate. Neuro at [facility] is managing this & aware. Exam: Awake alert NAD RRR LS clear & dim throughout Nonpitting edema RLE (reports chronic s/p surgery), no edema LLE, pedal pulses normal, skin intact Mood and affect appropriate Plan Labs up to date 05/2024, reviewed today. a1c done today 8.2%. Improved, reports her las one was > 9%. Has CGM. Plan: cont all meds as directed. Goal to get off insulin. Start Invokana 100mg. Edu on side effects and need to increase h20 intake and monitor for issues. Ok to self titrate lantus to avoid glucose < 70. Discussed in detail how to do that. Refer to ObPeyton Garcia ordered RTO in 3 months w/ labs done 1 week before for routine fu, sooner PRN This note is constructed using voice recognition software. While every effort has been made to ensure accuracy in regional operations director, still errors may have been included Sometimes, these errors may affect the content or meaning of the given sentence . Total time spent caring for the patient today was 45 minutes. This includes time spent before the visit reviewing the chart, time spent during the visit, and time spent after the visit on documentation PFSH Medical History (Updated 08/19/24 @ 15:05 by JASWANT Davies-LOUISE) Sleep apnea Hypertension IBS (irritable bowel syndrome) DVT (deep venous thrombosis) COVID-19 Asthma Diabetes Surgical History (Updated 08/19/24 @ 13:50 by JASWANT Davies-LOUISE) [place] teeth extracted Hx of carpal tunnel repair Hx of tonsillectomy Hx of knee surgery Family History (Updated 08/19/24 @ 11:12 by Kesha Wood MA) Maternal Grandfather Substance abuse Heart attack Maternal Grandmother Stomach cancer Father Diabetes Asthma Mother Asthma Social History (Updated 08/19/24 @ 11:12 by Kesha Wood MA) Household Members: Family Housing: House Do you presently have visiting nurse or other home services: No 75 years or older and lives alone: No Alcohol intake: never Patient Tobacco Use Status: Never used Tobacco e-Cigarette/Vaping Use: Never Used Advance Directives Date on File: 06/29/22 service: No Current occupational status: employed Cognitive needs: Yes Hearing needs: Yes Vision needs: Yes (wear glasses) Questionnaire PHQ-9 Over the last 2 weeks, how often have you been bothered by any of the following problems? 1. Little interest or pleasure in doing things: not at all 2. Feeling down, depressed, or hopeless: not at all 3. Trouble falling or staying asleep, or sleeping too much: not at all 4. Feeling tired or having little energy: not at all 5. Poor appetite or overeating: not at all 6. Feeling bad about yourself - or that you are a failure or have let yourself or your family down: not at all 7. Trouble concentrating on things, such as reading the newspaper or watching television: not at all 8. Moving or speaking so slowly that other people could have noticed. Or the opposite - being so fidgety or restless that you have been moving around a lot more than usual: not at all 9. Thoughts that you would be better off or of hurting yourself in some way: not at all Total score: 0 Depression Screening Interpretation: Negative Depression Screening Done: Yes 51912 - PHQ-9 Billing: Yes Source: Developed by Drs. Aj Becker, Roxanna Mahan, Mino Moore and colleagues, with an educational fabricio from [email or web address]. Thrive Questionnaire Date Thrive assessed: 08/19/24 I am a: Patient What is your living situation today?: I have a steady place to live Within the past 12 months, did the food you bought not last and you didn't have the money to get more?: Never true Within the past 12 months, did you worry whether your food would run out before you got money to buy more?: Never true Do you have trouble paying for medicines?: No Do you have trouble getting transportation to medical appointments?: No Do you have trouble paying your heating and electricity bill?: No Do you have trouble taking care of your child, family member or friend?: No Do you have trouble with day-to-day activities such as bathing, preparing meals, shopping, managing finances, etc.?: No Are you currently unemployed and looking for a job?: No Are you interested in more education?: No Please select the resources that you would like help with: None Currently or been in a relationship where the following occur: No concerns reported THRIVE Score: 0 AUDIT C Alcohol Use Questionnaire (AUDIT-C) 1. How often do you have a drink containing alcohol?: Never 3. How often do you have six or more drinks on one occasion?: Never Total Score: 0 Score Reviewed/Action Taken: Yes SILVERIO-7 AMB Questionnaire SILVERIO-7 Date SILVERIO - 7 assessed: 08/19/24 Feeling nervous, anxious, or on edge: 0 = Not at all Not being able to stop or control worryin = Not at all Worrying too much about different things: 0 = Not at all Trouble relaxin = Not at all Being so restless that it is hard to sit still: 0 = Not at all Becoming easily annoyed or irritable: 0 = Not at all Feeling afraid as if something awful might happen: 0 = Not at all Total SILVERIO-7 score (0-4 normal; 5-9 mild; 10-14 moderate; 15-21 severe): 0 Source: Developed by Drs. Aj Becker, Roxanna Mahan, Mino Moore and colleagues, with an educational fabricio from [email or web address]. SILVERIO-7 Assessment Billing SILVERIO-7 Assessment Tool: SILVERIO-7 Assessment 19087 Physical exam (Primary Care) Vital Signs: Last Vital Signs Pulse 94 08/19/24 11:05 Resp 13 08/19/24 11:05 BP 114/68 08/19/24 11:05 Pulse Ox 98 08/19/24 11:05 Oxygen Delivery Method Room Air 08/19/24 11:05 BMI result Body Mass Index 44.3 BMI Assessment/Plan discussion: High BMI High, discussed plan: lifestyle Tobacco/Smoking Status: Tobacco use Status Tobacco use date assessed 08/19/24 08/19/24 11:16 Patient Tobacco Use Status Never used Tobacco 08/19/24 11:12 e-Cigarette/Vaping Use Never Used 08/19/24 11:16 PHQ-9: PHQ-9 Score PHQ-9: Total score 0 08/19/24 13:50 Depression Screening Interpretation: Negative Thrive Assessment: Date of Thrive Assessment Date Thrive assessed 08/19/24 08/19/24 13:50 Currently or been in a relationship where the following occur: No concerns reported Results AMB Hemoglobin A1c AMB Hemoglobin A1c 8.2 % Last Edit by Kesha Wood MA on 08/19/24 11:25 Results Reviewed Results Reviewed: Laboratory Last Values Hgb A1c (Clinic) 8.2 % (4.0-6.0) H 08/19/24 11:19 Coding Level of Care Code New Pt Level 4 (41593) Complex EM visit Add On G2211 Diagnoses Diabetes mellitus type 2 with complications E11.8 Cervical cancer screening Z12.4 IUD (intrauterine device) in place Z97.5 Vitamin D deficiency E55.9 Mild intermittent asthma without complication J45.20 Asthma complication type: uncomplicated BMI 40.0-44.9, adult Z68.41 Class 3 severe obesity due to excess calories with serious comorbidity and body mass index (BMI) of 40.0 to 44.9 in adult E66.813; E66.01; Z68.41 Obesity type: due to excess calories Serious obesity comorbidity presence: with serious comorbidity Obstructive sleep apnea G47.33 Additional Codes SILVERIO-7 Assessment Billing - SILVERIO-7 Assessment Tool: SILVERIO-7 Assessment 75667 ([id number]) Assessment & Plan Assessment & Plan (1) Diabetes mellitus type 2 with complications: Code(s): E11.8 - Type 2 diabetes mellitus with unspecified complications Category: Medical Plan: . (2) Cervical cancer screening: Code(s): Z12.4 - Encounter for screening for malignant neoplasm of cervix Category: Medical Plan: . (3) IUD (intrauterine device) in place: Code(s): Z97.5 - Presence of (intrauterine) contraceptive device Category: Medical Plan: . (4) Vitamin D deficiency: Code(s): E55.9 - Vitamin D deficiency, unspecified Category: Medical Plan: . (5) Mild intermittent asthma: Code(s): J45.20 - Mild intermittent asthma, uncomplicated Category: Medical Qualifiers: Asthma complication type: uncomplicated Qualified Code(s): J45.20 - Mild intermittent asthma, uncomplicated Plan: . (6) BMI 40.0-44.9, adult: Comment: with HLD and DM Code(s): Z68.41 - Body mass index [BMI] 40.0-44.9, adult Category: Medical Plan: . (7) Class 3 severe obesity with body mass index (BMI) of 40.0 to 44.9 in adult: Comment: with HLD and DM Code(s): E66.813 - Obesity, class 3; E66.01 - Morbid (severe) obesity due to excess calories; Z68.41 - Body mass index [BMI] 40.0-44.9, adult Category: Medical Qualifiers: Obesity type: due to excess calories Serious obesity comorbidity presence: with serious comorbidity Qualified Code(s): E66.813 - Obesity, class 3; E66.01 - Morbid (severe) obesity due to excess calories; Z68.41 - Body mass index [BMI] 40.0-44.9, adult Plan: . (8) Obstructive sleep apnea: Comment: should be on CPAP but cannot tolerate Code(s): G47.33 - Obstructive sleep apnea (adult) (pediatric) Category: Medical Plan: . Orders: Orders AMB Hemoglobin A1c Today E11.8 - Type 2 diabetes mellitus with unspecified complications Lipid Panel 10/21/24 E11.8 - Type 2 diabetes mellitus with unspecified complications, E55.9 - Vitamin D deficiency, unspecified Microalbumin, Random (w Creat) 10/21/24 E11.8 - Type 2 diabetes mellitus with unspecified complications, E55.9 - Vitamin D deficiency, unspecified Vitamin B12 and Folate 10/21/24 E11.8 - Type 2 diabetes mellitus with unspecified complications, E55.9 - Vitamin D deficiency, unspecified MM tomosynthesis screening BI Today Z12.31 - Encounter for screening mammogram for malignant neoplasm of breast Comprehensive [place]. Panel Fast 10/21/24 E11.8 - Type 2 diabetes mellitus with unspecified complications, E55.9 - Vitamin D deficiency, unspecified Hemoglobin A1c 10/21/24 E11.8 - Type 2 diabetes mellitus with unspecified complications, E55.9 - Vitamin D deficiency, unspecified TSH reflex Free T4 10/21/24 E11.8 - Type 2 diabetes mellitus with unspecified complications, E55.9 - Vitamin D deficiency, unspecified Complete Blood Count no Diff 10/21/24 E11.8 - Type 2 diabetes mellitus with unspecified complications, E55.9 - Vitamin D deficiency, unspecified Vitamin D 1,25 dihydroxy 10/21/24 E11.8 - Type 2 diabetes mellitus with unspecified complications, E55.9 - Vitamin D deficiency, unspecified Referrals [facility] Referral Z12.4 - Encounter for screening for malignant neoplasm of cervix, Z97.5 - Presence of (intrauterine) contraceptive device Pulmonology Referral J45.20 - Mild intermittent asthma, uncomplicated Medications: New canagliflozin (Invokana) 100 mg PO DAILY 90 tabs 0RF 90 days blood-glucose sensor (FreeStyle Zeynep 3 Sensor device) As directed 2 ea 11RF E11.8 - Type 2 diabetes mellitus with unspecified complications Refilled albuterol sulfate 90 mcg/actuation 1 inh inhalation QID PRN 8.5 grams 1RF shortness of breath or wheezing Patient Instructions: Walk-In Care (Urgent Care): We Make it Easy Walk-in for urgent medical issues such as: ? Seasonal Allergies ? Insect Bites ? Cough ? Diarrhea ? Acute Asthma Attacks ? Back, Knee or Joint Pain ? Ear Infection ? Fever without a Rash ? Headaches ? Nausea ? [place] [facility], Rash or Skin Irritation ? Sore Throat ? Sports Physicals ? Vomiting Most insurances are accepted. Patients do not need to be part of the [facility] to seek care at the walk-in clinic. Locations [facility] , [place] [address] ? [phone] [facility] Walk-In Care in [place] provides services to ages 18 and over. Open Saturday-Saturday: 8 a.m. to 5 p.m. and Saturday: 9 a.m. to 3 p.m.* *Hours may vary due to staffing availability. To confirm Walk-In Care hours in [place], please call [phone]. [address] [place] [address] ? [phone] [facility] Walk-In Care in [place] provides services to ages 12 and over. Open Saturday-Saturday: 8 a.m. to 5 p.m. Hours may vary due to staffing availability. To confirm Walk-In Care hours in [place], please call [phone]. LABORATORY SERVICES: [facility] Lab ? Primary Location [address] [place] [address] Saturday through Saturday 6:00 AM ? 5:00 PM Saturday 7:00 AM ? 11:00 AM* [phone] The [facility] Lab is centrally located near the front entrance of the Medical Center for easy outpatient access. Convenient parking is provided for outpatients. *Hours may vary due to staffing availability. To confirm Laboratory hours for any location, please call [phone]. Offsite Location For your convenience, we offer offsite laboratory draw stations at the following locations: [address] [place] [address] ? [facility] [address], [address], [place] Saturday through Saturday 7:30 AM ? 1:00 PM* [phone] *Hours may vary due to staffing availability. To confirm Laboratory hours for any location, please call [phone]. [place] ? [facility] [place] [address] [facility] Saturday through Saturday 6:00 AM ? 3:30 PM* Saturday 6:30 AM ? 3 PM* [phone] *Hours may vary due to staffing availability. To confirm Laboratory hours for any location, please call [phone] [facility] Saturday through Saturday 7:30 AM ? 4:00 PM* [phone] *Hours may vary due to staffing availability. To confirm Laboratory hours for any location, please call [phone]. [facility] Saturday through 9:00 AM ? 4:00 PM* *Hours may vary due to staffing availability. To confirm Laboratory hours for any location, please call [phone]. Appointments are not necessary. Walk-ins are welcome. Like all the departments throughout the [facility], our Lab undergoes frequent reviews to ensure the quality and accuracy of test results, and our staff takes special pride in its status as a nationally accredited facility. Patient Portal: ONE PATIENT. ONE RECORD. BETTER CARE. [facility] has a fully integrated, cutting-edge mobile electronic health information system that has revolutionized the way we care for our patients and manage our organization. This system improves communication and coordination enabling us to provide safe, higher-quality care, and an overall positive experience for staff and patients. Our first priority, as always, is to deliver the highest quality care possible. The system is running in the background supporting that priority. This portal is for all [facility] services and practices. If you are experiencing any technical difficulties with enrolling or logging into the Patient Portal please complete the [facility] Patient Portal Technical Support Form. [facility] now offers a new secure on-line interactive tool for patients to review their health information ? Patient Portal. This interactive web portal will enable patients and their families to take an active role in their care by providing easy, secure access to their health information via the internet. The Patient Portal provides patients with instant access to their health information, including laboratory results, medications, allergies, demographic information, visit history, and more. In addition to managing their own care, parents and health care proxies with authorized consent will appreciate the ability to access the records of those individuals for whom they provide care. Please note: if you wish to gain access (Proxy) to another patient?s portal, you will be required to come to the Medical Records Department in person at [facility]. Both the patient giving proxy access and the proxy will need to provide photo identification and complete the appropriate authorization. The Patient Portal also allows track their appointments online. The [facility] Patient Portal also saves patients time by allowing them to submit updates to their demographic and contact information prior to their visits. Portal email notifications will also alert patients to any new activity on their portal, such as test results and new appointments. In order to initially enroll in the [facility] Patient Portal, you will need to enter some required information including the following: ? your [facility] Medical Record number ? your personal home email address ? name ? date of Please note: In order to enroll in the [facility] Patient Portal, we need to have your email address on file in your electronic medical record. The email address needs to be specific for one person (yourself) in order for your Portal enrollment to be successful. You can update your email address in person with our Registration staff when you are registering for a hospital visit. Otherwise, you will need to come to the Health Information Management (Medical Records) Department at [facility]. We are open from Saturday ? Saturday from 7:30 a.m. ? 4:30 p.m. You will be required to present a photo id. Once you have successfully enrolled in the Patient Portal, you will receive a one-time user id and password for the Portal, sent to your email address. This will allow you to log into the Patient Portal within 99 hrs and reset your own logon id and password, and define personal security questions. Once your permanent login and password have been set, you can log into the [facility] Patient Portal at any time via the blue button above or from the Portal Logon button on any page of the [facility] website. [facility] encourage all of our patients to enroll in Patient Portal as it presents a valuable opportunity for patients and their families to actively participate in their care and stay healthy Welcome to [facility]. We look forward to working with you.
[2024-08-19 11:05] VITALS: BP 114/68; PULSE 94; RESP 13; O2SAT 98; BMI 44.3
== END 2024-08-19 12:10 | disposition home or self-care (01) ==
LOC: HO.HMCFM 10:47
PROVIDERS: PCP Nurse Practitioner; Visit Provider Nurse Practitioner Family
DX: E11.8 Type 2 diabetes mellitus with unspecified complications (principal); Z68.41 Body mass index [BMI] 40.0-44.9, adult; Z97.5 Presence of (intrauterine) contraceptive device; E55.9 Vitamin D deficiency, unspecified; J45.20 Mild intermittent asthma, uncomplicated; E66.813 Obesity, class 3; G47.33 Obstructive sleep apnea (adult) (pediatric)

== ENCOUNTER → 2024-08-19 10:46 | Outpatient (BNVA) | payer OTHER, SELFPAY | PROVIDERS: PCP Nurse Practitioner; Visit Provider Nurse Practitioner Family | DX: E11.8 Type 2 diabetes mellitus with unspecified complications (principal); E55.9 Vitamin D deficiency, unspecified; J45.20 Mild intermittent asthma, uncomplicated; E66.813 Obesity, class 3; E66.01 Morbid (severe) obesity due to excess calories; Z68.41 Body mass index [BMI] 40.0-44.9, adult; G47.33 Obstructive sleep apnea (adult) (pediatric); Z97.5 Presence of (intrauterine) contraceptive device | CPT/HCPCS: 83036; 96127 ==

== ENCOUNTER 2024-08-20 09:26 | Outpatient (REF) | payer OTHER, SELFPAY ==
[2024-08-20 10:35] LABS: MANUAL DIFF FLAG NO
[2024-08-20 10:42] LABS: Basophils Absolute Auto 0.1 X10*3/uL (0.0-0.2); Basophils Percent Auto 0.4 % (0-2); Eosinophils Absolute Auto 0.4 X10*3/uL (0.0-0.4); Eosinophils Percent Auto 3.2 % (0-4); Hemoglobin 14.1 g/dl (12.0-16.0); Imm Gran Abs Auto 0.08 X10*3/uL (0.00-0.03); Imm Gran Pct Auto 0.7 % (0.0-0.4); Lymphocytes Absolute Auto 3.4 X10*3/uL (1.2-4.9); Lymphocytes Percent Auto 28.4 % (20-40); Mean Corpuscular HGB Conc 34.4 g/dl (31.0-35.0); Mean Corpuscular Hemoglobin 30.9 pg (27.0-33.0); Mean Corpuscular Volume 89.7 fL (80.0-98.0); Mean Platelet Volume 8.8 fL (9.4-12.3); Monocytes Absolute Auto 0.6 X10*3/uL (0.1-1.2); Monocytes Percent Auto 5.1 % (2-11); Neutrophils Absolute Auto 7.5 x10*3/uL (2.0-8.3); Neutrophils Percent Auto 62.2 % (45-73); Platelet Count 275 X10*3/uL (160-400); Red Blood Count 4.57 X10*6/uL (4.20-5.50); Red Cell Distribution Width 12.2 % (11.0-16.0); White Blood Count 12.1 X10*3/uL (4.8-10.8)
[2024-08-21 23:27] LABS: Class Alternaria alternata 0; Class Aspergillus fumigatus 0; Class Bermuda Grass 0; Class Birch 0; Class Cat Dander 4; Class Cladosporium herbarum 0; Class Cockroach 0/1; Class Common Ragweed 2; Class Cottonwood 0; Class Derm. pterony 0; Class Dermatophagoides farinae 0; Class Dog Dander 3; Class Elm 0; Class Maple Box Elder 0; Class Mountain Cedar 0; Class Mouse Urine Protein 0; Class Mugwort 0; Class Oak 0; Class Penicillium crysogenum 0; Class Rough Pigweed 0; Class Sheep Sorrel 0; Class Sycamore 0; Class Timothy Grass 0; Class Walnut Tree 0; Class White Ash 0; Class White Mulberry 0; D001 IgE D pteronyssinus <0.10 kU/L; D002 - IgE D farinae <0.10 kU/L; E072-IgE Mouse Urine <0.10 kU/L; G002 IgE Bermuda Grass <0.10 kU/L; G006 - IgE Timothy Grass <0.10 kU/L; I006-IgE Cockroach, German 0.22 kU/L; Immunoglobulin E 124 kU/L (<OR=114); M001 IgE Penicillium chrysogen <0.10 kU/L; M002 - IgE Cladosporium herbar <0.10 kU/L; M003 - IgE Aspergillus fumigat <0.10 kU/L; M006 - IgE Alternaria alternat <0.10 kU/L; T001 IgE Maple/Box Elder <0.10 kU/L; T003 IgE Common Silver Birch <0.10 kU/L; T006 - IgE Cedar, Mountain <0.10 kU/L; T007 - IgE Oak, White <0.10 kU/L; T008 IgE Elm, American <0.10 kU/L; T010 - IgE Walnut <0.10 kU/L; T011 - IgE Maple Leaf Sycamore <0.10 kU/L; T014 - IgE Cottonwood <0.10 kU/L; T015 - IgE Ash, White <0.10 kU/L; T070 - IgE White Mulberry <0.10 kU/L; W001 - IgE Ragweed, Short 1.77 kU/L; W006 - IgE Mugwort <0.10 kU/L; W014 IgE Pigweed, Common <0.10 kU/L; W018 IgE Sheep Sorrel <0.10 kU/L
== END 2024-08-20 09:27 | disposition home or self-care (01) ==
LOC: HO.LAB 09:26
PROVIDERS: PCP Nurse Practitioner Family; Visit Provider Internal Medicine Pulmonary Disease
DX: J45.20 Mild intermittent asthma, uncomplicated (principal)
CPT/HCPCS: 36415; 82785; 85025; 86003

== ENCOUNTER 2024-08-20 09:26 | Outpatient (AMB) | payer OTHER, SELFPAY ==
[2024-08-20 09:28] VITALS: BP 110/72; PULSE 100; O2SAT 98; BMI 43.9
--- NOTE | 2024-08-20 09:28 | MHC.OFFVIS ---
Vital Signs 08/20/24 09:28 Height 4 ft 11 in Weight 217 lb 2.485 oz BMI 43.9 BP 110/72 Blood Pressure Location Lt brachial Pulse 100 Pulse Source Doppler Pulse Oximetry (%) 98 Oxygen Delivery Method Room Air Intake Visit Reasons: asthma Allergies Heparin Analogues [HEPARIN AGENTS] Allergy (Intermediate, Verified 08/20/24 09:32) HIVES, RASH, SEVERE BRUISING dulaglutide [From Trulicity] Allergy (Verified 08/20/24 09:32) Rash HPI HPI asthma: Details: 44-year-old lady, nonsmoker, with underlying history of asthma since childhood and multiple first-degree relatives with asthma, with suboptimal control on albuterol MDI/nebs, also with multiple environmental allergies presents to establish care. Patient states that she does not have recent pulmonary function testing or allergy testing. She did have recent exacerbation that she is finishing prednisone taper for. [facility] Medical History (Updated 08/20/24 @ 09:59 by Paddy Alexandra MD) Asthma Sleep apnea Hypertension IBS (irritable bowel syndrome) DVT (deep venous thrombosis) COVID-19 Diabetes Surgical History (Updated 08/19/24 @ 13:50 by Madison Travis, [facility]) [place] teeth extracted Hx of carpal tunnel repair Hx of tonsillectomy Hx of knee surgery Family History (Updated 08/19/24 @ 11:12 by Kesha Wood MA) Maternal Grandfather Substance abuse Heart attack Maternal Grandmother Stomach cancer Father Diabetes Asthma Mother Asthma Social History Household Members: Family Housing: House Do you presently have visiting nurse or other home services: No 75 years or older and lives alone: No Alcohol intake: never Patient Tobacco Use Status: Never used Tobacco e-Cigarette/Vaping Use: Never Used Advance Directives Date on File: 06/29/22 service: No Current occupational status: employed Cognitive needs: Yes Hearing needs: Yes Vision needs: Yes (wear glasses) Review of Systems Const Denies daytime sleepiness, Denies excessive sweating, Denies fatigue, Denies fever(s), Denies lethargy, Denies malaise, Denies night sweats, Denies snoring and Denies weight loss Eyes Denies blurry vision and Denies itchy eyes ENT Denies nasal congestion, Denies post nasal drip, Denies sinus pain, Denies sinus pressure and Denies other ( Thrush) Card Denies chest pain, Denies pedal edema, Denies dyspnea, Denies orthopnea and Denies paroxysmal nocturnal dyspnea Resp Denies cough, Denies hemoptysis, Denies excessive phlegm production, Denies dyspnea, Denies snoring and Denies wheezing GI Denies abdominal pain and Denies heartburn Musc Denies myalgias, Denies arthralgias and Denies joint swelling Skin/Breast Denies rash Neuro Denies memory loss and Denies seizure-like activity Psych Denies abnormal sleep pattern, Denies anxiety and Denies memory loss Endo Denies excessive sweating, Denies fatigue and Denies heat intolerance Silver/Lymph Denies easy bruising Aller/Immun Denies itchy eyes, Denies seasonal rhinorrhea and Denies wheezing Physical Exam Vital Signs: Last Vital Signs Pulse 100 08/20/24 09:28 BP 110/72 08/20/24 09:28 Pulse Ox 98 08/20/24 09:28 Oxygen Delivery Method Room Air 08/20/24 09:28 BMI result Body Mass Index 43.9 Const General: no acute distress and alert Nutritional Appearance: obese Orientation/consciousness: Other orientation findings ( oriented) HEENT Head: Yes atraumatic Eyes General: appearance normal, both eyes and all related structures Sclerae: sclerae normal EOM: EOMs intact bilaterally Neck Neck: Yes supple Lymphatic: no lymphadenopathy noted Resp Effort & Inspection: normal respiratory effort and no use of accessory muscles Auscultation: clear to auscultation bilaterally Cardio Rate: regular rate Rhythm: regular rhythm Heart sounds: no gallops, no murmurs and no rubs Skin General skin exam: other ( warm) Extrem General: No clubbing, No cyanosis and No edema Assessment & Plan Assessment & Plan (1) Asthma: Code(s): J45.909 - Unspecified asthma, uncomplicated Category: Medical Plan: Suboptimally controlled on albuterol MDI. Will start Breo and obtain full PFT. (2) Environmental allergies: Code(s): Z91.09 - Other allergy status, other than to drugs and biological substances Category: Medical Plan: Will obtain IgE level, CBC with differential, and RAST panel for further evaluation. Orders: Orders Resp Allergy Profile Region I Today J45.20 - Mild intermittent asthma, uncomplicated Complete Blood Count Auto Diff Today J45.20 - Mild intermittent asthma, uncomplicated PFT pulmonary function test Today J45.20 - Mild intermittent asthma, uncomplicated Medications: New fluticasone furoate-vilanterol 200-25 mcg/dose (Breo Ellipta) 1 inh inhalation DAILY 1 ea 6RF Coding Level of Care Code New Pt Level 4 (51273) Diagnoses Asthma J45.909 Environmental allergies Z91.09
== END 2024-08-20 09:57 | disposition home or self-care (01) ==
LOC: HO.HPS 09:26
PROVIDERS: PCP Nurse Practitioner Family; Visit Provider Internal Medicine Pulmonary Disease
DX: J45.909 Unspecified asthma, uncomplicated (principal); Z91.09 Other allergy status, other than to drugs and biological substances
CPT/HCPCS: 99204

== ENCOUNTER 2024-09-09 15:26 | Outpatient (AMB) | payer OTHER, SELFPAY ==
--- NOTE | 2024-09-09 15:14 | A.OFFPC_ITS ---
Intake Visit Reasons: Meds follow up/ [phone] iOS device Intake Note: patient here for telehealth for med follow up [employer] Lead Required: No Is last menstrual period known: No (IUD) Post menopausal: No Patient : No Allergies Heparin Analogues [HEPARIN AGENTS] Allergy (Intermediate, Verified 09/09/24 16:44) HIVES, RASH, SEVERE BRUISING dulaglutide [From Trulicity] Allergy (Verified 09/09/24 16:44) Rash Medication List - Last Reconciled 09/09/24 by Madison Travis AUTO LOCATOR- acetazolamide ER 500 mg PO ONCE albuterol sulfate 90 mcg/actuation (Ventolin HFA) 2 puffs inhalation QID PRN amitriptyline 25 mg PO BEDTIME baclofen 10mg qhs and 5mg bid prn muscle spasm orally bedtime; 30 days blood-glucose sensor (C3Nanoyle Zeynep 3 Sensor device) As directed blood-glucose sensor ([employer] G7 Sensor device) As directed canagliflozin (Invokana) 100 mg PO DAILY cholecalciferol (vitamin D3) 1,250 mcg PO QWEEK fluticasone furoate-vilanterol 200-25 mcg/dose (Breo Ellipta) 1 inh inhalation DAILY insulin glargine (Lantus Solostar U-100 Insulin) 20 units subcut BID magnesium oxide 400 mg PO BEDTIME 30 days ondansetron 4 - 8 mg (1 - 2 x 4 mg) PO Q6-8H PRN 30 days riboflavin (vitamin B2) 400 mg PO DAILY 30 days rimegepant (Nurtec ODT) 75 mg PO Q OTHER DAY thiamine HCl (vitamin B1) 50 mg PO DAILY tirzepatide (Mounjaro) 12.5 mg subcut QWEEK topiramate 75 - 100 mg (1.5 - 2 x 50 mg) PO BID 30 days Tobacco use date assessed: 09/09/24 Dental Screening Dental Screen Date: 08/19/24 HPI HPI Comments History of Present Illness Details History of Present Illness The patient is a 44-year-old female presenting with concerns over adverse reactions to her current medication regimen for managing Type 2 Diabetes Mellitus and Idiopathic Intracranial Hypertension (IIH). She reports feeling significantly unwell after starting two new medications simultaneously. These medications include Invokana (for diabetes management) and acetazolamide (for IIH). This adverse reaction was particularly exacerbated after adding Mounjaro to her regimen. The patient describes profound weakness, fatigue, nausea, and gastrointestinal distress occurring every Saturday post-Mounjaro administration, which persists until Saturday. This pattern recurs weekly, disrupting her daily activities and leaving her largely bedridden for the first half of the week. When Invokana and Acetazolamide taking on day 4-6 after Mounjaro admin, she feels fine; she only feels this way on Day 1-3 of Mounjaro with these medications Prior to this regimen, the patient experienced mild nausea with Mounjaro alone but tolerated it well enough. She has increased her fluid intake as advised for these medications but expresses concern over possible excessive consumption, given frequent urination. She has also noted persistent fatigue and difficulty maintaining day-to-day activities, such as cooking or personal hygiene, indicating a considerable impact on her quality of life. Review of Systems - General: Reports profound weakness and fatigue. - Gastrointestinal: Reports nausea and g astrointestinal distress post-Mounjaro administration. - Genitourinary: Reports frequent urinat ion. - Psychiatric: Denies mood disturbances or significant anxiety. Note: This physical exam was conducted in conjunction with the patient via our Telehealth platform. Plan - Type 2 Diabetes Mellitus: Continue mon itoring blood glucose levels while considering a short-term trial off Invokana to assess its contribution to the current adverse reaction. - Idiopathic Intracranial Hypertension I IH): Consult with the prescriber of acetazolamide regarding possible dosage adjustment or alternative management options in conjunction with Mounjaro and Invokana. - Monitor for hydration given increased urination, but encourage maintaining adequate fluid intake within normal ranges to avoid electrolyte imbalances. Patient was informed and verbally consented to the use of an ambient scribe for clinic note documentation during this visit. Discussion Notes Discussion included the potential side effects of the current medication regimen and the possible interaction between Invokana, acetazolamide, and Mounjaro that may exacerbate symptoms. These medication do not have any direct interaction. The s/e of Acetazolamide are more congruent w/ the sx she is complaining of; whereas s/e of Invokana are not, other than the increased urination. I suggested possibly trialing off Invokana to determine if it alleviates symptoms, considering the patient's significant concern over her diabetic management OR I recommended consulting with the neurologist who prescribed acetazolamide for any dosage adjustments to accommodate the delayed gastric emptying possibly occurring with Mounjaro which could be causing these sx. She would like to stay on Invokana and talk to Neuro. The patient was advised to communicate any further concerns or questions through our patient portal and to keep me updated on her discussions with other healthcare providers involved in her care. Patient Instructions - Monitor and record your blood glucose levels regularly. - Communicate with your neurology provid er regarding acetazolamide dosing and possible adjustments. - Maintain adequate hydration but avoid excessive water intake. - Reach out via the patient portal with any concerns or developments. Total time spent caring for the patient today was 22 minutes. This includes time spent before the visit reviewing the chart, time spent during the visit, and time spent after the visit on documentation [facility] Medical History (Updated 08/20/24 @ 09:59 by Paddy Alexandra MD) Asthma Sleep apnea Hypertension IBS (irritable bowel syndrome) DVT (deep venous thrombosis) COVID-19 Diabetes Surgical History (Updated 08/19/24 @ 13:50 by Madison Travis, [facility]) [place] teeth extracted Hx of carpal tunnel repair Hx of tonsillectomy Hx of knee surgery Family History (Updated 08/19/24 @ 11:12 by Kesha Wood MA) Maternal Grandfather Substance abuse Heart attack Maternal Grandmother Stomach cancer Father Diabetes Asthma Mother Asthma Social History Household Members: Family Housing: House Do you presently have visiting nurse or other home services: No 75 years or older and lives alone: No Alcohol intake: never Patient Tobacco Use Status: Never used Tobacco e-Cigarette/Vaping Use: Never Used Advance Directives Date on File: 06/29/22 Patient : No service: No Current occupational status: employed Cognitive needs: Yes Hearing needs: Yes Vision needs: Yes (wear glasses) Questionnaire Thrive Questionnaire Date Thrive assessed: 08/19/24 SILVERIO-7 AMB Questionnaire SILVERIO-7 Date SILVERIO - 7 assessed: 08/19/24 Source: Developed by Drs. Aj Becker, Roxanna Mahan, Mino Moore and colleagues, with an educational fabricio from [employer] Physical exam (Primary Care) Tobacco/Smoking Status: Tobacco use Status Tobacco use date assessed 09/09/24 09/09/24 15:23 Patient Tobacco Use Status Never used Tobacco 09/09/24 15:23 e-Cigarette/Vaping Use Never Used 09/09/24 15:23 Thrive Assessment: Date of Thrive Assessment Date Thrive assessed 08/19/24 09/09/24 15:23 Telehealth Telehealth Telehealth Platform: Telephone Location of provider rendering services: practice address Location of patient: address on file Patient Identification confirmed using: Name, : Yes Telehealth method: voice only Patient verbally consented to treatment: Yes Patient verbally consented to billing insurance company: Yes Patient informed of any privacy concerns related to visit: Yes Minutes spent on Phone/Video with Pt.: 15 Coding Level of Care Code Tele Est Pt Level 3 (30820) Complex EM visit Add On G2211 Diagnoses Intracranial hypertension G93.2 Diabetes mellitus type 2 with complications E11.8 Assessment & Plan Assessment & Plan (1) Intracranial hypertension: Code(s): G93.2 - Benign intracranial hypertension Category: Medical (2) Diabetes mellitus type 2 with complications: Code(s): E11.8 - Type 2 diabetes mellitus with unspecified complications Category: Medical Plan . Medications: Discontinued empagliflozin (Jardiance) Discontinued Reason: Insurance Denied 10 mg PO DAILY 90 tabs 0RF
== END 2024-09-09 16:56 | disposition home or self-care (01) ==
LOC: HO.HMCFM 15:26
PROVIDERS: PCP Nurse Practitioner Family; Visit Provider Nurse Practitioner Family
DX: G93.2 Benign intracranial hypertension (principal); E11.8 Type 2 diabetes mellitus with unspecified complications

== ENCOUNTER → 2024-09-09 15:26 | Outpatient (BNVA) | payer OTHER, SELFPAY | PROVIDERS: PCP Nurse Practitioner Family; Visit Provider Nurse Practitioner Family ==

== ENCOUNTER 2024-09-28 15:12 | Outpatient (REF) | payer OTHER, SELFPAY ==
--- NOTE | ~2024-09-28 | MM_ITS ---
EXAMINATION: MM SCREENING DIGITAL BREAST TOMOSYNTHESIS, BILATERAL CLINICAL INFORMATION: Screening. Asymptomatic. COMPARISON: Mammography: Comparison is made with available priors TECHNIQUE: Digital breast mammography with tomosynthesis is performed in both the craniocaudal and mediolateral oblique views along with computer-aided detection (CAD). FINDINGS: There are scattered areas of fibroglandular density (ACR BI-RADS breast composition Category b). There are no significant masses, abnormal calcifications, or other abnormalities. MM/MM tomosynthesis screening BI IMPRESSION: No mammographic evidence of malignancy. ASSESSMENT: BI-RADS BI-RADS 1 - Negative RECOMMENDATION: Routine annual mammography screening. 1 year F/U This examination should not preclude the clinical evaluation of a suspicious palpable abnormality. This patient's information was entered into a reminder system with a target due date for their next mammogram. Electronically signed by: Shauna Trujillo DO 10/02/2024 05:40 PM ROSIE
== END 2024-09-28 15:13 | disposition home or self-care (01) ==
LOC: HO.MAMMO 15:12
PROVIDERS: PCP Nurse Practitioner Family; Visit Provider Nurse Practitioner Family
DX: Z12.31 Encounter for screening mammogram for malignant neoplasm of breast (principal)
CPT/HCPCS: 77063; 77067

== ENCOUNTER → 2024-09-28 15:30 | Outpatient (BNV) | payer OTHER, SELFPAY | PROVIDERS: PCP Nurse Practitioner Family; Visit Provider Internal Medicine | DX: Z12.31 Encounter for screening mammogram for malignant neoplasm of breast (principal) | CPT/HCPCS: 77063; 77067 ==

== ENCOUNTER 2024-09-29 12:24 | Outpatient (REF) | payer OTHER, SELFPAY ==
[2024-09-29 11:16] VITALS: PULSE 87; O2SAT 98
--- NOTE | 2024-09-29 12:42 | PFT_ITS ---
Indication: Asthma Spirometry [FEV1/FVC 76%; FEV1 2 L; FVC 2.64 L. there is a significant response to bronchodilators noted. Maximum voluntary ventilation 76% predicted] Lung Volumes [Total lung capacity 82% predicted; residual volumes 89% predicted; expiratory reserve volume 32% predicted Diffusion Capacity [DLCO 127% predicted] Comparisons [None] Interpretation [No obstructive nor restrictive ventilatory defects identified. There was a significant response to bronchodilators noted. Mild decrease in the maximum voluntary ventilation secondary to likely deconditioning. Lung volumes are low normal. Decreasing the expiratory reserve volume likely secondary to an elevated BMI. The diffusing capacity is significantly elevated. Need to consider exogenous exposure to carbon monoxide. If asthma is in the differential, a methacholine challenge may be helpful for assessing for hyperreactive airways. Clinical correlation warranted.] [facility]
== END 2024-09-29 12:25 | disposition home or self-care (01) ==
LOC: HO.RESP 12:24
PROVIDERS: PCP Nurse Practitioner Family; Visit Provider Internal Medicine Pulmonary Disease
DX: J45.20 Mild intermittent asthma, uncomplicated (principal)
CPT/HCPCS: 94010; 94640; 94727; 94729

== ENCOUNTER → 2024-09-29 12:42 | Outpatient (BNV) | payer OTHER, SELFPAY | PROVIDERS: PCP Nurse Practitioner Family; Visit Provider Hospitalist | DX: J45.20 Mild intermittent asthma, uncomplicated (principal) | CPT/HCPCS: 94060; 94727; 94729 ==

== ENCOUNTER 2024-10-02 08:42 | Outpatient (AMB) | payer OTHER, SELFPAY ==
[2024-10-02 08:55] VITALS: BP 122/78; PULSE 100; O2SAT 98; BMI 43.6
--- NOTE | 2024-10-02 08:55 | A.OFFVIS_ITS ---
Vital Signs 10/02/24 08:55 Height 4 ft 11 in Weight 216 lb BMI 43.6 BP 122/78 Blood Pressure Location Rt brachial Position Sitting Pulse 100 Pulse Source Doppler Pulse Oximetry (%) 98 Oxygen Delivery Method Room Air Intake Visit Reasons: Asthma/PFT Follow Up Allergies Heparin Analogues [HEPARIN AGENTS] Allergy (Intermediate, Verified 09/09/24 16:44) HIVES, RASH, SEVERE BRUISING dulaglutide [From Trulicity] Allergy (Verified 09/09/24 16:44) Rash HPI HPI Asthma/PFT Follow Up: Details: 44-year-old lady, nonsmoker, now followed for severe persistent asthma and environmental allergies. At the last office visit patient was started on Breo with some, but not optimal control of her symptoms. She also completed immunologic workup showing significant allergic component to his symptoms. She denies an acute exacerbation. [facility] Medical History (Updated 10/02/24 @ 09:07 by Paddy Alexandra MD) Asthma Sleep apnea Hypertension IBS (irritable bowel syndrome) DVT (deep venous thrombosis) COVID-19 Diabetes Surgical History (Updated 08/19/24 @ 13:50 by Madison Travis, [facility]) [place] teeth extracted Hx of carpal tunnel repair Hx of tonsillectomy Hx of knee surgery Family History (Updated 08/19/24 @ 11:12 by Kesha Wood MA) Maternal Grandfather Substance abuse Heart attack Maternal Grandmother Stomach cancer Father Diabetes Asthma Mother Asthma Social History Household Members: Family Housing: House Do you presently have visiting nurse or other home services: No 75 years or older and lives alone: No Alcohol intake: never Patient Tobacco Use Status: Never used Tobacco e-Cigarette/Vaping Use: Never Used Advance Directives Date on File: 06/29/22 service: No Current occupational status: employed Cognitive needs: Yes Hearing needs: Yes Vision needs: Yes (wear glasses) Review of Systems Const Denies daytime sleepiness, Denies excessive sweating, Denies fatigue, Denies fever(s), Denies lethargy, Denies malaise, Denies night sweats, Denies snoring and Denies weight loss Eyes Denies blurry vision and Denies itchy eyes ENT Denies nasal congestion, Denies post nasal drip, Denies sinus pain, Denies sinus pressure and Denies other ( Thrush) Card Denies chest pain, Denies pedal edema, Denies dyspnea, Denies orthopnea and Denies paroxysmal nocturnal dyspnea Resp Denies cough, Denies hemoptysis, Denies excessive phlegm production, Denies dyspnea, Denies snoring and Reports wheezing GI Denies abdominal pain and Denies heartburn Musc Denies myalgias, Denies arthralgias and Denies joint swelling Skin/Breast Denies rash Neuro Denies memory loss and Denies seizure-like activity Psych Denies abnormal sleep pattern, Denies anxiety and Denies memory loss Endo Denies excessive sweating, Denies fatigue and Denies heat intolerance Silver/Lymph Denies easy bruising Aller/Immun Denies itchy eyes, Denies seasonal rhinorrhea and Reports wheezing Physical Exam Vital Signs: Last Vital Signs Pulse 100 10/02/24 08:55 BP 122/78 10/02/24 08:55 Pulse Ox 98 10/02/24 08:55 Oxygen Delivery Method Room Air 10/02/24 08:55 BMI result Body Mass Index 43.6 Const General: no acute distress and alert Nutritional Appearance: obese Orientation/consciousness: Other orientation findings ( oriented) HEENT Head: Yes atraumatic Eyes General: appearance normal, both eyes and all related structures Sclerae: sclerae normal EOM: EOMs intact bilaterally Neck Neck: Yes supple Lymphatic: no lymphadenopathy noted Resp Effort & Inspection: normal respiratory effort and no use of accessory muscles Auscultation: clear to auscultation bilaterally Cardio Rate: regular rate Rhythm: regular rhythm Heart sounds: no gallops, no murmurs and no rubs Skin General skin exam: other ( warm) Extrem General: No clubbing, No cyanosis and No edema Assessment & Plan Assessment & Plan (1) Severe persistent asthma: Code(s): J45.50 - Severe persistent asthma, uncomplicated Category: Medical Plan: Suboptimally controlled on Breo and albuterol MDI. Will request Xolair approval. (2) Environmental allergies: Code(s): Z91.09 - Other allergy status, other than to drugs and biological substances Category: Medical Plan: Results of immunologic testing reviewed, patient does have significant allergic component to his symptoms. Will request Xolair approval. Coding Level of Care Code Est Pt Level 4 (42328) Diagnoses Severe persistent asthma J45.50 Environmental allergies Z91.09
== END 2024-10-02 09:06 | disposition home or self-care (01) ==
PROVIDERS: PCP Nurse Practitioner Family; Visit Provider Internal Medicine Pulmonary Disease
DX: J45.50 Severe persistent asthma, uncomplicated (principal); Z91.09 Other allergy status, other than to drugs and biological substances
CPT/HCPCS: 99214

== ENCOUNTER → 2024-10-02 08:42 | Outpatient (BNVA) | payer OTHER, SELFPAY | PROVIDERS: PCP Nurse Practitioner Family; Visit Provider Internal Medicine Pulmonary Disease | DX: J45.50 Severe persistent asthma, uncomplicated (principal); Z91.09 Other allergy status, other than to drugs and biological substances | CPT/HCPCS: 99212 ==

== ENCOUNTER 2024-10-07 09:43 | Outpatient (AMB) | payer OTHER, SELFPAY ==
--- NOTE | 2024-10-07 09:43 | A.OFFVIS_ITS ---
Vital Signs 10/07/24 10:27 Height 4 ft 11 in Weight 211 lb BMI 42.6 Intake Visit Reasons: follow up Intake Note: Pt presents to the office today as a telehealth appt. Pt states she is having really bad pain and has been staying in bed most of the time. Allergies Heparin Analogues [HEPARIN AGENTS] Allergy (Intermediate, Verified 10/07/24 09:43) HIVES, RASH, SEVERE BRUISING dulaglutide [From Trulicity] Allergy (Verified 10/07/24 09:43) Rash Medication List - Last Reconciled 10/07/24 by JASWANT Motta albuterol sulfate 90 mcg/actuation (Ventolin HFA) 2 puffs inhalation QID PRN amitriptyline 25 mg PO BEDTIME baclofen 10mg qhs and 5mg bid prn muscle spasm orally bedtime; 30 days blood-glucose sensor (Health Data Minderyle Zeynep 3 Sensor device) As directed blood-glucose sensor (Dexcom G7 Sensor device) As directed canagliflozin (Invokana) 100 mg PO DAILY cholecalciferol (vitamin D3) 1,250 mcg PO QWEEK fluticasone furoate-vilanterol 200-25 mcg/dose (Breo Ellipta) 1 inh inhalation DAILY insulin glargine (Lantus Solostar U-100 Insulin) 20 units subcut BID magnesium oxide 400 mg PO BEDTIME 30 days ondansetron 4 - 8 mg (1 - 2 x 4 mg) PO Q6-8H PRN 30 days riboflavin (vitamin B2) 400 mg PO DAILY 30 days rimegepant (Nurtec ODT) 75 mg PO Q OTHER DAY thiamine HCl (vitamin B1) 50 mg PO DAILY tirzepatide (Mounjaro) 12.5 mg (0.8333 mL) subcut QWEEK HPI Comments Details: 44-yr-old female presents for f/u televideo visit via [employer] for h/o IH, c hronic migraine, cervicalgia, dizziness, sleep apnea. She has been working w/ her new PCP Pt had neuro-ophthalmology consult on 10/01/24, no evidence of papilledema and was advised her to stop Acetazolamide, start Migranol supplement and a Mag L- threonate supplement, continue to work on wt loss, and to f/u in 4 months. Her wt is down to 211 lbs. She is working w/ her PCP on wt loss and diabetes tx- HgA1C has reduced to 8.2%. She has an apppt w/ ENT in [facility] in early Nov and ENT in [facility] at the end of Nov. Pt reports worsening of her migraine and headache pain, now daily and severe, especially in the past 3 weeks. Feels she is talking a bit slower again, stumbling on her words more. She has general soreness and weakness. Continues to have RUE elbow/arm, numbness. Has h/o Right knee meniscus repair- which can be sore at times. She states she can have episodes of feeling ok, and then an hour later feel completely unwell- fatigued, weak, sore. Cannot identify a pattern. Pt has stopped working completely as of 07/25/24, as some days she cannot get out of bed at all. PT gave her some relief, so wonders if she can resume this again. The Nurtec is helping with the pain in her face for a short time. Baclofen helps with sleep, but not much with the pain. Furosemide was stopped when she resumed Acetazolamide- now stopped. She did stop Topiramate 3 weeks ago, as ophthalmology suggested she could stop these as well. She is no longer on Qulipta, as insurance only allowed 1 fill. Indomethacin was also stopped d/t insurance issues. On the Qulipta and the Indomethacin she had headaches, but she had less pain overall and fatigue- could do more through out the day. The dizziness is still present, but not as frequent. She does feel that being in crowds is difficult, especially when people are moving- it is difficult with her vision. She feels more anxiety- struggling w/ adapting to not being able tod rive, not working, not being able to predict when she will feel unwell or not. She has started to see a therapist a psychiatrist- sees clinic tele- in [facility]. Patient previously returned her CPAP machine. Baseline headache characteristics: 1- Headache is throbbing/pressure, temples, lower occipital/neck/shoulder region a/w brain fog, room spinning or not right in space dizziness, tinnitus, nausea, osmophobia, photophobia, phonophobia, allodynia, cognitive and speech difficulties, and previously right sided facial swelling.. 2- Brief severe sharp stabbing pains in the occipital region- can have several in 1 day, and then may have a few days w/o an attack. She cannot reproduce this, even w/ palpation. Previous consults: January 2024- Dr Javon Vivas at [facility], Pt was offered trigger point injection tx, but pt opted to do this more locally. January 2024- Юлия Bello MD- Pt states she was also told her headache was more cervicogenic and not r/t to elevated intracranial pressure as she does not have papilledema, thus she stopped Acetazolamide at that time. Previous work-up: 06/11/24, CT/CT head/brain wo IV con IMPRESSION: 1. No evidence of acute intracranial hemorrhage or edematous territorial infarction. 2. 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 04/15/24, BUE EMG/NCS, IMPRESSION: 1. This is a normal study. 02/13/24, MR/MR cervical spine wo con IMPRESSION: -Suboptimal evaluation secondary to motion. Within this constraint, no high- grade spinal canal stenosis. Up to moderate bilateral neural foraminal stenosis at C4-C5. -Central disc extrusion at T1-T2 indents the ventral thecal sac with mild canal stenosis. -Heterogeneous marrow signal is indeterminate and may represent red marrow. Correlation with laboratory values is recommended. 02/05/24, US/US soft tiss head and/or neck IMPRESSION: Area of concern as indicated by the patient in the base of the neck on the right corresponds with a 0.8 cm lymph node. 10/25/23, MR/MR venography head wo/w con IMPRESSION: No cerebral venous thrombosis. Unremarkable MRV of the head. 10/01/23, MR/MR angio head wo con IMPRESSION: Normal MRA of the head. 09/20/23, In-lab PSG: AHI 9/hr, REM AHI 37/hr, O2 william 79% 09[facility]23[facility], Lumbar Puncture: Opening pressure was 33 cm, w/ normal CSF studies. 08/08/2023?, Cervical Spine 4 or 5 Views FINDINGS: No evidence of fracture or dislocation. Mild bilateral foraminal stenosis at C3-C4 and C4-C5. IMPRESSION: Mild degenerative changes in the cervical spine are outlined above 07/06/2023, Brain MRI w/wo, IMPRESSION: 1. No evidence of acute/subacute infarction, mass effect, or abnormal enhancement. 2. Borderline low cerebellar tonsils with slight crowding at the foramen magnum but without compression of the cervicomedullary junction. The appearance is unchanged compared to the MRI from 10 years ago. 3. A few scattered foci of nonspecific T2 signal abnormality are seen in the supratentorial white matter. [facility] Medical History Asthma Sleep apnea Hypertension IBS (irritable bowel syndrome) DVT (deep venous thrombosis) COVID-19 Diabetes Surgical History [place] teeth extracted Hx of carpal tunnel repair Hx of tonsillectomy Hx of knee surgery Family History Maternal Grandfather Substance abuse Heart attack Maternal Grandmother Stomach cancer Father Diabetes Asthma Mother Asthma Social History Household Members: Family Housing: House Do you presently have visiting nurse or other home services: No 75 years or older and lives alone: No Alcohol intake: never Patient Tobacco Use Status: Never used Tobacco e-Cigarette/Vaping Use: Never Used Advance Directives Date on File: 06/29/22 service: No Current occupational status: employed Cognitive needs: Yes Hearing needs: Yes Vision needs: Yes (wear glasses) Physical Exam Const General: cooperative and no acute distress Orientation/consciousness: patient oriented x3 Resp Effort & Inspection: normal respiratory effort and able to speak in complete sentences Neuro General: patient oriented x3 and moves all extremities Cranial nerves: Yes CN's II-XII intact bilaterally Cognition (Neuro): normal cognition Psych Appearance: grossly normal Mental Status: mental status grossly normal Speech and movement: Normal speech and movement present Affect: normal affect Attitude: cooperative Telehealth Telehealth Telehealth Platform: Telephone Location of provider rendering services: practice address Location of patient: address on file Patient Identification confirmed using: Name, : Yes Telehealth method: video Patient verbally consented to treatment: Yes Patient verbally consented to billing insurance company: Yes Patient informed of any privacy concerns related to visit: Yes Minutes spent on Phone/Video with Pt.: 45 Assessment & Plan Assessment & Plan (1) Chronic migraine without aura: Code(s): G43.709 - Chronic migraine without aura, not intractable, without status migrainosus Category: Medical (2) Cervicalgia: Comment: With muscle spasm Code(s): M54.2 - Cervicalgia Category: Medical (3) Intracranial hypertension: Comment: No recent evidence of papilledema. Patient has had weight loss since initial LP showed elevated OP. Code(s): G93.2 - Benign intracranial hypertension Category: Medical (4) Dizziness: Code(s): R42 - Dizziness and giddiness Category: Medical Plan ? For mild RACHAEL: Pt has returned CPAP- was not tolerating well. Will monitor. ? For overall headache and dizziness management: Continue to optimize good self-care, including but not limited to maintaining a healthy diet, adequate fluid intake, adequate sleep, and engaging in regular physical activity. Track headaches. Consider trial of sertraline 25 mg daily in a.m., however will need to see treatment recommendations by patient's psychiatrist 1st. Resume PT for vestibular tx- at [facility], [facility], [facility] w/ Jazmin Dill PT. ENT consults as scheduled Will check with patient's mental health clinic if they offer Bio-neurofeedback. For cervicalgia: Previous neck US- 0.8cm lymph node. Previous C-spine MRI- Up to moderate bilateral neural foraminal stenosis at C4- C5. Central disc extrusion at T1-T2 indents the ventral thecal sac with mild canal stenosis. Heterogeneous marrow signal is indeterminate and may represent red marrow. Recent CBC- WNL Previous BUE EMG/NCS- normal. Adjust baclofen to 20 mg q.h.s. ? For IIH w/o papilledema: Brain MRA/MRV- mild low lying cerebellar tonsils w/ no indications of venous s inus stenosis. 10/09/2020 for Neuro-Ophthalmology exam: Did not reveal evidence of papilledema. Pt has stopped acetazolamide, furosemide, and topiramate. 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 ? For acute headache treatment: Continue Metoclopramide 5-10 mg as needed for nausea and/or migraine headache pain. Continue ondansetron 4-8 mg every 6-8 hours as needed for nausea Continue Nurtec 75mg daily as needed. Previous acute migraine medication trials: Tylenol- ineffective. Excedrin- ineffective. Sumatriptan 100mg tab- ineffective. Cyclobenzaprine 10mg qhs- causes excess drowsiness. Rizatriptan- ineffective. Ubrelvy- ineffective. Eletriptan- not fully effective. Acute migraine medication contraindications: None at this time ? For stabbing headache: Resume Indomethacin 25 mg 3 times a day- taken w/ food. Check CBC and CMP in 1 month. Future considerations- Tegretol trial. ? For chronic migraine headache prevention medication: Continue Riboflavin 400mg daily in the morning Continue Magnesium 400mg daily in the morning- hold for loose stools. May adjunct with Migranol 1 cap daily in the morning and Magnesium L-Threonate 1 cap daily at bedtime Patient has stopped Topiramate 125mg twice a day, if headache burden does not subside, consider resuming. Start Botox 155 units IM injection every 12 weeks for chronic migraine. Previous migraine prevention medication trials: Gabapentin- ineffective. Amitriptyline- ineffective. Emgality ineffective. Qulipta-had some benefit but not fully effective Migraine prevention medication contraindications: BBs d/t asthma dx ? Patient to abstain from work to follow up here in 3-4 months ? Will follow-up upon review of above and patient to follow-up in clinic in 3-4 months or sooner prn. Orders: Orders PT Evaluation and Treatment Today G43.709 - Chronic migraine without aura, not intractable, without status migrainosus, M54.2 - Cervicalgia, R42 - Dizziness and giddiness Medications: New onabotulinumtoxinA (Botox) inject 155 units IM across forehead, scalp, and neck 200 units IM ONCE 12 weeks 1 ea 3RF G43.709 - Chronic migraine without aura, not intractable, without status migrainosus Changed From baclofen 10mg qhs and 5mg bid prn muscle spasm orally bedtime; 30 days 90 tabs 1RF To baclofen 20 mg (2 x 10 mg) PO BEDTIME 30 days 60 tabs 1RF From metoclopramide HCl 5 - 10 mg (1 - 2 x 5 mg) PO Q4-6H 84 tabs 0RF nausea and vomiting 14 days MDD 6 tabs To metoclopramide HCl 5 - 10 mg (1 - 2 x 5 mg) PO Q4-6H 30 days 30 tabs 3RF nausea and vomiting MDD 4 tabs Refilled indomethacin administer with food or milk 25 mg PO TID 30 days 90 caps 1RF stabbing headache ondansetron 4 - 8 mg (1 - 2 x 4 mg) PO Q6-8H 30 days PRN 40 tabs 1RF nausea and vomiting Coding Level of Care Code Tele Est Pt Level 4 (84208) Complex EM visit Add On G2211 Diagnoses Chronic migraine without aura G43.709 Cervicalgia M54.2 Intracranial hypertension G93.2 Dizziness R42
[2024-10-07 10:27] VITALS: BMI 42.6
== END 2024-10-07 11:27 | disposition home or self-care (01) ==
LOC: HO.HSMS 09:43
PROVIDERS: PCP Nurse Practitioner Family; Visit Provider Nurse Practitioner Family
DX: G43.709 Chronic migraine without aura, not intractable, without status migrainosus (principal); M54.2 Cervicalgia; G93.2 Benign intracranial hypertension; R42 Dizziness and giddiness
CPT/HCPCS: 99214; G2211

== ENCOUNTER → 2024-10-07 09:43 | Outpatient (BNVA) | payer OTHER, SELFPAY | PROVIDERS: PCP Nurse Practitioner Family; Visit Provider Nurse Practitioner Family ==

== ENCOUNTER 2024-11-11 07:07 | Outpatient (REF) | payer OTHER, SELFPAY ==
--- OUTSIDE RECORDS SUMMARY | 2024-11-11 07:10 | XMS_ITS ---
Author Organization [facility], [facility] Address [address] [place] [id number] Care Team Providers Care Backup Administrative Coordinator Name Role Phone CELESTINA FERNANDEZ Primary Care Provider [phone] JAZMYNE LINDO [phone] REASON FOR VISIT New Refill Request MEDICATIONS Medication SIG (Take, Route, Frequency, Duration) Notes Start Date End Date Status Albuterol Sulfate HFA 108 (90 Base) MCG/ACT 2 puff as needed Inhalation every 4 hrs for 90 days Active Encounters Encounter Location Date Provider Diagnosis [address] [id number] 05/27/2024 JAZMYNE LINDO PLAN OF TREATMENT Medication Medication Name Sig Start Date Stop Date Notes Albuterol Sulfate HFA 108 (9 0 Base) MCG/ACT 2 puff as needed Inhalation every 4 hrs for 90 days Progress Notes * BAYRON LAZARODOB: [birth year] (43 yo F)Acc No.[id number]:05/27/2024 Patient:??IVETH BAYRON :1980?Age:43 Y?Sex:Fe male Phone: Address:[address] [place] [id number] * Refills?? Refill Albuterol Sulfate HFA Aerosol Solution, 108 (90 Base) MCG/ACT, Inhalation, 1, 2 puff as needed, every 4 hrs, 90 days, Refills=3 * true * Date:??
--- OUTSIDE RECORDS SUMMARY | 2024-11-11 07:10 | XMS_ITS ---
Author Organization [facility], [facility] Address [address] [place], [place] [id number] Care Team Providers Care Puppet Master Name Role Phone CELESTINA FERNANDEZ Primary Care Provider [phone] JAZMYNE LINDO Unavailable [phone] REASON FOR VISIT New Refill Request Encounters Encounter Location Date Provider Diagnosis [facility], [address] [id number] 05/20/2024 JAZMYNE LINDO PLAN OF TREATMENT No Information Progress Notes * BAYRON LAZARODOB: [birth year] (43 yo F)Acc No.[id number]:05/20/2024 Patient:??BAYRON LAZARO :1980?Age:43 Y?Sex:Fe male Phone: Address:[address] [place] [id number] * true * Date:??
--- OUTSIDE RECORDS SUMMARY | 2024-11-11 07:10 | XMS_ITS | Data Portability ---
Author Organization [facility] [employer], [employer] Address [address] [place] [address] [place] [address] Care Team Providers Care Materials Engineering Technician Name Role Phone JAZMYNE LINDO Referring Provider [phone] JAZMYNE LINDO Primary Care Provider Assessment Encounter Date Assessment Date Assessment LastModified by Organization Details LastModified Time 01/27/2024 01/27/2024 IMPRESSION: Possible benign intracranial hypertension as explanation, at least in part, of June 26-2022, onset of persistent, dizziness, arm tingling, partially improved slurring, visual blurring, and on June 29 headache, which also persists, all preceded by 2000 [place] the beach. Neurological exam January 27 2024 is unrevealing except for fundi which I did not examine as I could not visualize them. Meningeal infection is also in the differential, but unlikely: I think it highly likely that the CSF assays sent by [facility] after September 10, 2023 lumbar puncture were benign. I will find results for documentation. Secondary intracranial issues are essentially ruled out with normal brain MRI, brain MRA and brain MRV. Without infection, the curious sudden onset after a day of the beach remains an atypical aspect of this presentation, what ever part of it there is intracranial hypertension and/or migraine. Lumbar puncture results revealed 33 cm opening pressure which is well above the 25 cm cutoff for diagnosis of increased intracranial pressure. Yet, the patient says that she went to the eye doctor who said that her eye exam is normal. As intracranial hypertension is more dangerous, high priority is to understand whether this is present. For this we need ophthalmology notes. If ophthalmology indeed finds no papilledema, then repeat lumbar puncture is indicated as mistakes can be made resulting in false positive, predominantly with the positioning? b lalitha should be straight, not curled up? a nd with making sure there is no Valsalva by the patient. Medications per patient inhalers, topiramate, acetazolamide, magnesium, riboflavin, Emgality, Jardiance, Lantus, ondansetron, rizatriptan PLAN Susan Fanny ([facility]), January 27, 2024 We will find: Ophthalmology note, CSF results sent after [facility] Follow up after [email or web address] Not available 01/27/2024 14:30:12 03/24/2024 03/24/2024 IMPRESSION: Possible benign intracranial hypertension as explanation, at least in part, of June 26-2022, onset of persistent, dizziness, arm tingling, partially improved slurring, visual blurring, and on June 29 headache, which also persists, all preceded by 2023-day at the beach. Neurological exam January 27 2024 is unrevealing except for fundi which I did not examine as I could not visualize them. Meningeal infection is also in the differential, but unlikely: I think it highly likely that the CSF assays sent by [facility] after September 10, 2023 lumbar puncture were benign. I will find results for documentation. Secondary intracranial issues are essentially ruled out with normal brain MRI, brain MRA and brain MRV. >>>>>>>>>>DATA REVIEW Ultrasound of head neck soft tissue 2023 area of concern at the base of the neck on the right corresponds to a 0.8 cm lymph node MRI cervical spine without contrast February 13, 2024 [facility] radiology: Suboptimal evaluation secondary to motion. Within this constraint: The cervical spinal cord is normal in signal intensity. There is no high-grade central spinal canal stenosis. Up to moderate bilateral neuroforaminal stenosis at C4-5. MRV brain with and without IV contrast, [facility], compared to brain MRI December 17, 2018 and MR a head October 01, 2023 [facility]: No cerebral venous thrombosis, unremarkable study more generally. MRA head without contrast [facility] October 02, 2023: Normal. CSFNov2022 clear, colorless, WBC = 0, RBC = 12/8 [2 #4 presumably], glucose 106, total protein 25.1 serum: September 10 2023 glucose 210 test negative Lumbar puncture note [facility], September 10, 2023, for chief complaint of headache with orthostatic component: CSF fluid obtained, clarity not characterized. Opening pressure 33 cm [HTO]. 8 cc of fluid was sent for analysis. Closing pressure is not documented. Ophthalmology consultation June 21, 2023 diagnoses: Bilateral myopia, unspecified open-angle glaucoma, stage unspecified; type 2 diabetes but state that it is without complications. >>>>>>>>>>END DATA REVIEW The situation is essentially unchanged: The lumbar puncture increased pressure suggests diagnosis of idiopathic intracranial hypertension? i n the context of the unrevealing MRV. However, ophthalmology June 2023 consultation does not find papilledema. The patient mentions that they had a repeat ophthalmology evaluation in August and the diagnosis did not change. My recommendation then is as I thought at initial consultation: Repeat lumbar puncture to see if there is normal pressure? a nd that the opening pressure measured September 10, 2024 was a false positive. Medications per patient inhalers, topiramate, acetazolamide, magnesium, riboflavin, Emgality, Jardiance, Lantus, ondansetron, rizatriptan PLAN [facility]edo [facility] March 24, 2024 She wants to think about whether she wants to continue working with me. She will call, and a week she thinks, if she does, and we agree that at that point I would look at [facility] interventional radiology and have her follow-up to discuss the results after with me. [email or web address] Not available 03/24/2024 10:45:48 Plan of Treatment Reminders Order Date Submit Date Provider Last Modified By Organization Details Last Modified Time Details Appointments None record ed. Lab None record ed. Referral None record ed. Procedures None record ed. Surgeries None record ed. Imaging None record ed. Medication Orders None record ed. Patient TargetsNo targets recorded. Patient Instructions Encounter Date Encounter Id Patient Instructions Last Modified By Organization Details Last Modified Time 01/27/2024 [id number] Discussion acros s issues of diagnoses and management and same day associated chart review and management greater than 50% greater than 60 minutes [email or web address] Not available 01/27/2024 14:30:31 03/24/2024 [id number] PREVIOUS DISCUSSION >>>>>>>>January 27, 2024 initial neurology consultation Without infection, the curious sudden onset after a day of the beach remains an atypical aspect of this presentation, what ever part of it there is intracranial hypertension and/or migraine. Lumbar puncture results revealed 33 cm opening pressure which is well above the 25 cm cutoff for diagnosis of increased intracranial pressure. Yet, the patient says that she went to the eye doctor who said that her eye exam is normal. As intracranial hypertension is more dangerous, high priority is to understand whether this is present. For this we need ophthalmology notes. If ophthalmology indeed finds no papilledema, then repeat lumbar puncture is indicated as mistakes can be made resulting in false positive, predominantly with the positioning? b lalitha should be straight, not curled up? a nd with making sure there is no Valsalva by the patient. Discussion across issues of diagnoses and management and same day associated chart review and management greater than 50% greater than 40 minutes [email or web address] Not available 03/24/2024 10:45:54 Reason for Referral None Reported. Results Created Date Observation Date Name Description Value Unit Range Abnormal Flag Note LastModifiedBy Organization Detail LastModifiedTime 01/27/20 24 07/06/2023 MRI, brain , w/wo contr ast No observ ation record ed. Not Available 2023 12:56:20 01/27/20 24 08/08/2023 XR, cervi tomeka spine , 4 or 5 view No observ ation record ed. Not Available 2023 12:58:55 01/27/20 24 10/25/2023 MR, venog ryan, brain , w/wo contr ast No observ ation record ed. Not Available 2023 12:59:35 01/27/20 24 10/01/2023 MR, angio gram, brain , w/o contr ast No observ ation record ed. Not Available 2023 13:00:23 01/27/20 24 09/10/2023 lumba r punct ure (PROC ) No observ ation record ed. Not Available 2023 13:01:03 01/27/20 24 06/29/2023 CT, head + brain , w/o contr ast No observ ation record ed. Not Available 2023 13:01:53 04/08/20 24 08/22/2022 CT, angio gram, heart , w/ contr ast No observ ation record ed. Not Available 2023 12:57:44 03/24/20 24 02/13/2024 MRI, cervi tomeka spine , w/o contr ast No observ ation record ed. [email or web address] [facility] [address] [place], [address], 03/25/2024 16:03:10 Result Notes None recorded. Procedures Surgical History Date Name Laterality Status Provider Name and Address Organization Details Recorded Time 03/24/2024 DATA REVIEW completed Ilya Mckeon MD [address] [place], [place] [address], [address], [facility] 03/24/2024 10:16:01 01/27/2024 DATA REVIEW completed Ilya Mckeon MD [address] [place], [place] [address], [address], [facility] 01/27/2024 14:11:59 Imaging Results Imaging Date Name Status [facility] Details LastModified Time 07/06/2023 MRI, brain, w/wo contrast completed Information not available 01/27/2024 12:56:20 08/08/2023 XR, cervical spine, 4 or 5 view completed Information not available 01/27/2024 12:58:55 10/25/2023 MR, venogram, brain, w/wo contrast completed Information not available 01/27/2024 12:59:35 10/01/2023 MR, angiogram, brain, w/o contrast completed Information not available 01/27/2024 13:00:23 09/10/2023 lumbar puncture (PROC) completed Information not available 01/27/2024 13:01:03 06/29/2023 CT, head + brain, w/o contrast completed Information not available 01/27/2024 13:01:53 08/22/2022 CT, angiogram, heart, w/ contrast completed Information not available 01/27/2024 12:57:44 02/13/2024 MRI, cervical spine, w/o contrast completed [email or web address] [facility] [address] [facility], [place], [address], 03/25/2024 16:03:10 Procedure Notes None recorded. Medical Equipment None Reported. Allergies Allergen ID Allergen Name Allergen Category Reaction Reaction Severity Criticality Documentation Date Start Date Code Code System Note Provider Name and Address Organization Details Recorded Time 3895 heparin medicatio n Not available Not available Not available 01/27/2024 5224 RxNorm Eli Vegas [facility] 13:24:25 Medications Name Sig Start Date Stop Date Status Note LastModified by Organization Details LastModified Time cyclobenzapr ine 10 mg tablet TAKE 1 TABLET BY MOUTH DAILY AT BEDTIME active Not Available Not Available N ot Available butalbital-a cetaminophen -caffeine 50 mg-325 mg-40 mg capsule TAKE 1 TO 2 CAPSULES BY MOUTH EVERY 4 TO 6 HOURS NEEDED FOR HEADACHE FOR 7 DAYS active Not Available Not Available N ot Available fluconazole 150 mg tablet TAKE 1 TABLET BY MOUTH EVERY 72 HOURS FOR 3 DAYS active Not Available Not Available N ot Available sumatriptan 100 mg tablet active Not Available Not Available Not Available rizatriptan 10 mg tablet active Not Available Not Available Not Available naproxen 250 mg tablet TAKE 2 TABLETS BY MOUTH TWO TIMES A DAY active Not Available Not Available Not Available thiamine HCl (vitamin B1) 100 mg tablet TAKE 1 TABLET BY MOUTH ONCE DAILY active Not Available Not Available No t Available topiramate 25 mg tablet TAKE 2 TABLETS BY MOUTH TWICE DAILY active Not Available Not Available No t Available ketorolac 10 mg tablet TAKE 1 TABLET BY MOUTH EVERY 8 HOURS X 5 DAYS active Not Available Not Available No t Available alprazolam 0.25 mg tablet active Not Available Not Available Not Available amitriptylin e 25 mg tablet TAKE 1 TABLET BY MOUTH DAILY AT BEDTIME active Not Available Not Available N ot Available magnesium oxide 400 mg (241.3 mg magnesium) tablet TAKE 1 TABLET BY MOUTH EVERY NIGHT AT BEDTIME. MAY HOLD FOR LOOSE STOOLS active Not Available Not Available No t Available lorazepam 0.5 mg tablet TAKE 1 TO 2 TABLETS BY MOUTH 30 MINUTES BEFORE MRI NEEDED FOR ANXIETY. MAY REPEAT ONCE NEEDED active Not Available Not Available No t Available metocloprami de 5 mg tablet TAKE 1 TO 2 TABLETS BY MOUTH EVERY 4-6 HOURS FOR NAUSEA AND VOMITING active Not Available Not Available No t Available amitriptylin e 10 mg tablet TAKE 1 TO 3 TABLETS BY MOUTH AT BEDTIME active Not Available Not Available No t Available baclofen 10 mg tablet TAKE 0.5 TO 1 TABLET BY MOUTH AT BEDTIME active Not Available Not Available No t Available clotrimazole -betamethaso ne 1 %-0.05 % topical cream APPLY TOPICALLY TO THE AFFECTED AND SURROUNDING AREAS TWICE DAILY IN THE MORNING AND IN THE EVENING FOR 2 WEEKS active Not Available Not Available No t Available indomethacin 25 mg capsule TAKE 1 CAPSULE BY MOUTH THREE TIMES DAILY WITH FOOD OR MILK active Not Available Not Available No t Available montelukast 10 mg tablet TAKE 1 TABLET BY MOUTH DAILY IN THE EVENING active Not Available Not Available No t Available gabapentin 100 mg capsule TAKE 1 CAPSULE BY MOUTH TWICE DAILY active Not Available Not Available No t Available albuterol sulfate HFA 90 mcg/actuatio n aerosol inhaler INHALE 2 PUFFS VIA SPACER CHAMBER FOUR TIMES DAILY active Not Available Not Available No t Available ondansetron 4 mg disintegrati ng tablet TAKE 1-2 TABLETS BY MOUTH EVERY 6-8 HOURS NEEDED FOR NAUSEA AND VOMITING active Not Available Not Available No t Available insulin lispro (U-100) 100 unit/mL subcutaneous pen active Not Available Not Available Not Available topiramate 50 mg tablet TAKE 1.5-2 TABLETS BY MOUTH TWICE DAILY FOR 30 DAYS active Not Available Not Available No t Available BD Ultra-Fine Mini Pen Needle 31 gauge x 3/16 USE TO ADMINISTER INSULIN TWICE DAILY active Not Available Not Available Not Available cholecalcife rol (vitamin D3) 1,250 mcg (50,000 unit) capsule TAKE 1 CAPSULE BY MOUTH ONCE A WEEK active Not Available Not Available No t Available Lantus Solostar U-100 Insulin 100 unit/mL (3 mL) subcutaneous pen ADMINISTER 10 UNITS UNDER THE SKIN TWICE DAILY. ROTATE INJECTION SITES active Not Available Not Available No t Available riboflavin (vitamin B2) 400 mg tablet TAKE 1 TABLET BY MOUTH DAILY active Not Available Not Available Not Available Emgality Pen 120 mg/mL subcutaneous pen injector ADMINISTER 1ML UNDER THE SKIN ONCE MONTHLY active Not Available Not Available No t Available Ubrelvy 100 mg tablet active Not Available Not Available No t Available Ozempic 1 mg/dose (4 mg/3 mL) subcutaneous pen injector INJECT 1MG UNDER THE SKIN EVERY 7 DAYS active Not Available Not Available No t Available Qulipta 60 mg tablet TAKE 1 TABLET BY MOUTH DAILY active Not Available Not Available Not Available Ozempic 2 mg/dose (8 mg/3 mL) subcutaneous pen injector 2 MG SUBCUTANEOU S INJECTION EVERY WEEK,INSTR: IN THE ABDOMEN, THIGH, OR UPPER ARM active Not Available Not Available No t Available Mounjaro 7.5 mg/0.5 mL subcutaneous pen injector ADMINISTER 7.5 MG UNDER THE SKIN 1 TIME A WEEK active Not Available Not Available No t Available Mounjaro 12.5 mg/0.5 mL subcutaneous pen injector ADMINISTER 12.5 MG UNDER THE SKIN 1 TIME A WEEK active Not Available Not Available No t Available FreeStData Symmetry Zeynep 3 Sensor device USE DIRECTED FOR DIABETES. CHANGE EVERY 14 DAYS active Not Available Not Available No t Available Vitals Date Recorded Body height Body mass index (BMI) Body weight Respiratory rate Provider Name and Address Organization Details Last Updated DateTime 01/27/2024 149.86 cm 46 kg/m2 200461.06 g 12 /min Eli Vegas [facility] 01/27/2024 13:24:17 Social History Question Answer Notes LastModified by Organizat ion Details LastModified Time Tobacco Smoking Status Never Smoker Eli haile [facility] 01/27/2024 13:26:01 What Is Your Level Of Alcohol Consumption? None Information not available 01/27/2024 What Is Your Level Of Caffeine Consumption? Moderate 1 Cup Daily Information not available 01/27/2024 What Is The Highest Grade Or Level Of School You Have Completed Or The Highest Degree You Have Received? [id number] Information not available 01/27/2024 Which Of Your Hands Is Dominant? Right Information not available 01/27/2024 Sex: Unknown Functional Status None recorded. Mental Status None recorded. Family History Relationship Description Onset Age of this Age Resolved Age Notes LastModified by Organization Details LastModified Time Maternal Grandmother Dementia Not available 01/26 13:24:40 Maternal Grandfather Diabetes mellitus Not available 2023 13:25:01 Paternal Grandmother Diabetes mellitus Not available 2023 13:25:01 Mother Headache Not available 0 01/27/2024 13:25:24 Father Heart disease Not available 2023 13:25:29 Medical History Condition Response Claustrophobia N Hospitalizations N Head Trauma/Injury N High Blood Pressure or Hypertension N Thyroid Problems N Lung Disease N COPD or emphysema N Brain Tumors N Depression Y Encephalitis N Vitamin B12 deficiency N PTSD N Spine Problems N Heart Attack ([place]) N Obstructive Sleep Apnea N Alcoholism N Diabetes Y Autoimmune disease N Bleeding Disorder N Arthritis N Tuberculosis N Developmental Problems N Cerebral Palsy N Neck Problems N Cancer N Back Problems N Stroke N Asthma Y Heartburn, acid reflux, GERD N Vitamin D Deficiency N Epilepsy/Seizures N Bipolar Disorder N Sleep Disorder N Hepatitis N Aneurysm N Liver Disease N Heart Disease N Headaches Y Fibromyalgia N Osteoporosis N High Cholesterol or Hyperlipidemia N Kidney Disease N Gynecological HistoryNo gynecological history recorded. Obstetrics History GPAL:G 0 P 0 0 0 0 Past Encounters Encounter ID Performer Location Encounter Start Date Encounter Closed Date Diagnosis/Indication Diagnosis SNOMED-CT Code Diagnosis ICD10 Code Diagnosis Note [id number] Ilya Mckeon MD [facility] [address] [place] [address] [place] [address] 01/27/2024 12:43:24 01/27/2024 15:32:53 Benign intracranial hypertension 01137502 G93.2 Migraine without aura 56 146100 G43.009 [id number] Ilya Mckeon MD [facility] [address] [place] [address] [place] [address] 03/24/2024 09:45:33 03/24/2024 10:51:41 Benign intracranial hypertension 99588965 G93.2 Migraine without aura 56 672192 G43.009 Health Concerns Section Related Observation LastModified by Organization Detai ls LastModified Time None Recorded Concern Status LastModified by Organization Details LastModified Time None Recorded Advance Directives Directive None Recorded Payers Encounter Date Sequence Insurance Name Policy Number Policy Cowan Covered Member ID Cowan Member ID Guarantor Name 01/27/2024 1 [facility] [id number] Susan Escobedo [id number] Susan Escobedo 03/24/2024 1 [facility] [id number] Susan Escobedo [id number] Susan Escobedo Notes Date Note Type Note Provider Name and Address Organization Details Recorded Time 01/27/2024 text/html She presents for initial neurology consultation for assessment and management of June 26-2022, onset of persistent, dizziness, arm tingling, partially improved slurring, visual blurring, and on June 29 headache, which also persists, all preceded [place] 2000 [place].She is accompanied by her sister, Gracie.Before June 26, 2023, she rarely got headaches, at most three times a year, and always mild. The only tingling she has ever had has been below her right knee and her right leg since right-sided knee meniscus surgery. She has generally not had visual blurring or speech slurring or dizziness.On 2023 [place] the [place]. She got very real on June 26 with dizziness, tingling in her arms, visual blurring and speech slurring. On June 29, 2023 she had additional onset of severe headache.June 29, 2023 emergency room visit resulted in migraine diagnosis. IV fluid did not help and medications she was sent home with did not help. She took those for a few weeks and then stopped them. Symptoms were worsening and she had a second emergency room visit.She subsequently had lumbar puncture September 10, 2023 (opening pressure 33 cm per chart note) after which neurology (JASWANT Rock) at [facility] gave her a diagnosis of idiopathic intracranial hypertension and started acetazolamide. She had two or 3 days of 50% reduction of intense head pain and 50% reduced speech slurring after the LP. Headache then returned back to intense baseline but the reduced speech slurring did not worsen. She has no side effects to acetazolamide.She subsequently titrated topiramate October through beginning december, up to 100 mg twice a day, without benefit or side effects. She notes specifically that tingling which emerged in the early days of June after her day at the beach did not change at all with addition of acetazolamide or topiramate.The next change in symptoms she had was January 18, 2024, 1 day after her first physical therapy session. The physical therapy session hurt but the next day headache was 75% better and her speech slurring was another 25% better so that it was 75% better since onset. The headache benefit only lasted until evening. However, since January 17, ~9 days ago, she has recurrently had partial reduction of her headache during the days. Headache is typically worsened in the evening after she does home exercises from physical therapy. She has had one more physical therapy session January 24Saturday, 2 days ago. That one was more intense and it was more painful that evening afterwards. The benefit during the 2 days following in the morning has been less than previously, 50% Ilya Mckeon MD [address] [place] [address] [place], [phone], [facility] 01/27/2024 16:54:01 03/24/2024 text/html Follow up of June 26-2022, onset of persistent, dizziness, arm tingling, partially improved slurring, visual blurring, and on June 29 headache, which also persists, all preceded by 2000 [place]day [place] the beach.She is accompanied by her sister, Gracie. >>>>>>>>>March 24, 2024Since January 27, 2024 initial neurology consultation, she reports no new or changing symptomatology. She has had an MRI cervical spine and a soft tissue neck ultrasound following up physical therapy concerned about a swelling in her neck? t his was identified by the ultrasound as a 0.8 cm lymph node.>>>>>>>>>January 27, 2024 presenting symptoms:Before June 26, 2023, she rarely got headaches, at most three times a year, and always mild. The only tingling she has ever had has been below her right knee and her right leg since right-sided knee meniscus surgery. She has generally not had visual blurring or speech slurring or dizziness.On 2023 she spent the day at the beach. She got very real on June 26 with dizziness, tingling in her arms, visual blurring and speech slurring. On June 29, 2023 she had additional onset of severe headache.June 29, 2023 emergency room visit resulted in migraine diagnosis. IV fluid did not help and medications she was sent home with did not help. She took those for a few weeks and then stopped them. Symptoms were worsening and she had a second emergency room visit.She subsequently had lumbar puncture September 10, 2023 (opening pressure 33 cm per chart note) after which neurology (JASWANT Rock) at [facility] gave her a diagnosis of idiopathic intracranial hypertension and started acetazolamide. She had two or 3 days of 50% reduction of intense head pain and 50% reduced speech slurring after the LP. Headache then returned back to intense baseline but the reduced speech slurring did not worsen. She has no side effects to acetazolamide.She subsequently titrated topiramate October through beginning december, up to 100 mg twice a day, without benefit or side effects. She notes specifically that tingling which emerged in the early days of June [place] the beach did not change at all with addition of acetazolamide or topiramate.The next change in symptoms she had was January 18, 2024, 1 day after her first physical therapy session. The physical therapy session hurt but the next day headache was 75% better and her speech slurring was another 25% better so that it was 75% better since onset. The headache benefit only lasted until evening. However, since January 17, ~9 days ago, she has recurrently had partial reduction of her headache during the days. Headache is typically worsened in the evening after she does home exercises from physical therapy. She has had one more physical therapy session January 24Saturday, 2 days ago. That one was more intense and it was more painful that evening afterwards. The benefit during the 2 days following in the morning has been less than previously, 50% Ilya Mckeon MD [address] [place], [place] [address], [address], [facility] 03/24/2024 10:46:08 OBGyn Episode No OBEpisode recorded.
--- OUTSIDE RECORDS SUMMARY | 2024-11-11 07:10 | XMS_ITS ---
Author Organization [facility], [facility] Address [address], [place] [id number] Care Team Providers Care Customer Consulting Manager Name Role Phone CELESTINA FERNANDEZ Primary Care Provider [phone] JAZMYNE LINDO [phone] REASON FOR VISIT Refills Encounters Encounter Location Date Provider Diagnosis [facility], [address] [id number] 05/01/2024 JAZMYNE LINDO PLAN OF TREATMENT No Information Progress Notes * BAYRON LAZARODOB: [birth year] (43 yo F)Acc No.[id number]:05/01/2024 Patient:??BAYRON LAZARO :1980?Age:43 Y?Sex:Fe male Phone: Address:[address] [place] [id number] * true * Date:??
[2024-11-11 08:07] LABS: Estimated Average Glucose 186 mg/dL; Hemoglobin A1C 254.8924 umol/L; Hemoglobin A1c % 8.1 % (<6.0); Total Hemoglobin (HGBA1C) 3887.9844 umol/L
[2024-11-11 08:11] LABS: Hematocrit 44.9 % (37.0-47.0); Hemoglobin 15.7 g/dl (12.0-16.0); Mean Corpuscular Volume 88.6 fL (80.0-98.0); Mean Platelet Volume 9.5 fL (9.4-12.3); Platelet Count 305 X10*3/uL (160-400); Red Blood Count 5.07 X10*6/uL (4.20-5.50); White Blood Count 10.5 X10*3/uL (4.8-10.8)
[2024-11-11 08:24] LABS: Alanine Aminotransferase 36 U/L (0-31); Albumin Level 4.3 g/dL (3.5-5.0); Alkaline Phosphatase 74 U/L (39-117); Anion Gap 10 (12-20); Aspartate Amino Transferase 21 U/L (5-31); Bilirubin Total 0.6 mg/dL (0.0-1.0); Blood Urea Nitrogen 14 mg/dL (9-16); Calcium 9.8 mg/dL (8.4-10.2); Carbon Dioxide 22 mmol/L (22-29); Chloride 109 mmol/L (96-108); Cholesterol 139 mg/dL (<200); Estimated Glomerular Filt Rate > 60; Glucose Fasting 217 mg/dL (60-99); HDL Cholesterol 39 mg/dL (>40); LDL Cholesterol Calculated 74 mg/dL (<100); Potassium 4.1 mmol/L (3.3-5.1); Sodium 137 mmol/L (135-145); Total Protein 7.7 g/dL (6.5-8.0); Triglycerides 134 mg/dL (<150)
[2024-11-11 08:48] LABS: TSH reflex Free T4 1.62 uIU/mL (0.32-4.0)
[2024-11-11 08:51] LABS: Folate 10.5 ng/mL (> or = 4.0); Vitamin B12 308 pg/mL (200-900)
[2024-11-15 08:34] LABS: VITAMIN D (1,25 OH) D3 36 pg/mL; Vit D (1,25-Dihydroxy) Total 36 pg/mL (18-72); Vitamin D (1,25 OH) D2 <8 pg/mL
== END 2024-11-11 07:08 | disposition home or self-care (01) ==
LOC: HO.LAB 07:07
PROVIDERS: PCP Nurse Practitioner Family; Visit Provider Nurse Practitioner Family
DX: E11.8 Type 2 diabetes mellitus with unspecified complications (principal); E55.9 Vitamin D deficiency, unspecified
CPT/HCPCS: 36415; 80053; 80061; 82607; 82652; 82746; 83036; 84443; 85027

== ENCOUNTER 2024-11-12 12:09 | Outpatient (REF) | payer OTHER, SELFPAY ==
[2024-11-12 12:41] LABS: Microalbum/Creatinine Ratio Ur 11.6 ug/mg cr (<30)
--- OUTSIDE RECORDS SUMMARY | 2024-11-12 14:31 | XMS_ITS | Clinical Summary ---
Author Organization [facility] ity Address [address] [place] [address] Care Team Providers Care Aerodynamics Professor Name Role Phone Nicola Spears MD Primary Care Provider [phone] Surgical History Surgery Date Site/Laterality Comments CARPAL TUNNEL RELEASE PROCEDURE: NV NEUROPLASTY &/TRANSPOS MEDIAN NRV CARPAL TUNNE; COMMENT: bilateral TONSILLECTOMY PROCEDURE: HISTORICAL TONSILLECTOMY COLONOSCOPY 05/01/2018 PROCEDURE: OUTSIDE COLONOSCOPY; COMMENT: diminutive tubular adenoma polyp. random colonic bx normal. KNEE ARTHROSCOPY W/ MENISCAL REPAIR 12/11/2019 PROCEDURE: NV ARTHROSCOPY KNEE W/MENISCUS RPR MEDIAL/LATERAL; COMMENT: root repair; [facility] Medical History Medical History Date Comments Chiari malformation type II (CMS/HCC) 04/21/2018 DX:Chiari malformation type II (HCC); COMMENT: Referred to neurology, diagnosed age 25, at baseline has symptoms of imbalance, headaches and slurring of words RACHAEL (obstructive sleep apnea) 04/21/2018 DX :RACHAEL (obstructive sleep apnea); COMMENT: Not compliant with CPAP machine. Uses nasal piece Carpal tunnel syndrome, bila teral upper limbs 04/21/2018 DX:Carpal tunnel syndrome, b ilateral upper limbs; COMMENT: S/p release right and left age 25 Morbid obesity with BMI of 4 5.0-49.9, adult (CMS/HCC) 04/21/2018 DX:Morbid obesity with BMI o f 45.0-49.9, adult ([facility]) Tubular adenoma of colon 05/15/2018 DX:Tubu lar adenoma of colon Irritable bowel syndrome wit h diarrhea 08/05/2018 DX:Irritable bowel syndrome with diarrhea Moderate persistent asthma w ith acute exacerbation 01/05/2019 DX:Moderate persistent asthm a with acute exacerbation DM (diabetes mellitus), type 2 with renal complications (CMS/HCC) 04/29/2018 DX:DM (diabetes mellitus ), type 2 with renal complications (HCC) Family History Medical History Relation Name Comments No Known Problems Aunt No Known Problems Brother No Known Problems Father No medical conditions Diabetes Maternal Grandfather No Known Problems Maternal Grandmother Hypertension Mother Asthma No Known Problems Other No Known Problems Paternal Grandfather Diabetes Paternal Grandmother No Known Problems Sister No Known Problems Uncle Blindness Neg Hx Breast cancer Neg Hx Cataracts Neg Hx Cervical cancer Neg Hx Colon cancer Neg Hx Glaucoma Neg Hx Macular degeneration Neg Hx Ovarian cancer Neg Hx Strabismus Neg Hx Uterine cancer Neg Hx Relation Name Status Comments Aunt Brother Father Alive Maternal Grandfather Maternal Grandmother Mother Alive Other Paternal Grandfather Paternal Grandmother Sister Uncle Social History Tobacco Use Types Packs/Day Years Used Date Smoking Tobacco: Never Smokeless Tobacco: Never Alcohol Use Standard Drinks/Week Comments No 0 (1 standard drink = 0.6 oz pur e alcohol) Sex and Gender Information Value Date Recorded Sex Assigned at Not on file Gender Identity Not on file Sexual Orientation Not on file Obstetrics History Plan of Treatment Health Maintenance Due Date Last Done Comments Breast Cancer Screening 1980 Diabetes: Annual GFR (Glomer ular Filtration Rate) 1980 Pneumococcal Vaccine: Pediat rics (0 to 5 Years) and At-Risk Patients (6 to 64 Years) (1 of 2 - PCV) 1986 Diabetes: Annual Foot Exam 1990 Diabetes: Annual Retina Eye Exam 1990 Hepatitis B Vaccines (1 of 3 - 19+ 3-dose series) 1999 Cervical Cancer Screening: P ap Smear 2001 Cholesterol Screening (Lipid Panel) 06/15/2024 Colorectal Cancer Screening: Colonoscopy 06/15/2024 Depression Screening 06/15/2024 Diabetes: Annual Urine Albumin-Creatinine Ratio (uACR) 06/15/2024 Diabetes: Blood Sugar Contro l Test (HGBA1C) 06/15/2024 HIV Screening 06/15/2024 Hepatitis C Screening 06/15/2024 Social Influencers of Health Screening 06/15/2024 COVID-19 Vaccine ( - 2023-2 5 season) 2024 Influenza Vaccine (#1) 2024 DTaP,Tdap,and Td Vaccines (2 - Td or Tdap) 04/29/2028 04/29/2018 HIB Vaccines Aged Out No longer eligi ble based on patient's age to complete this topic HPV Vaccines Aged Out No longer eligi ble based on patient's age to complete this topic Hepatitis A Vaccines Aged Out No long er eligible based on patient's age to complete this topic IPV Vaccines Aged Out No longer eligi ble based on patient's age to complete this topic MMR Vaccines Aged Out No longer eligi ble based on patient's age to complete this topic Meningococcal ACWY Vaccine Aged Out N o longer eligible based on patient's age to complete this topic RSV Immunization Patients Un mackenzie 20 months Aged Out No longer eligible b ased on patient's age to complete this topic Varicella Vaccines Aged Out No longer eligible based on patient's age to complete this topic Care Teams Aerodynamics Professor Relationship Specialty Start Date End Date Nicola Spears MD [address] [place] [address] PCP - General Internal Medicine 10/27/21
--- OUTSIDE RECORDS SUMMARY | 2024-11-12 14:32 | XMS_ITS | Data Portability ---
Author Organization [facility] [employer] Address [address] [place] [address] [place] [address] Care Team Providers Care Inspector Conveyor Line Name Role Phone JAZMYNE LINDO Referring Provider [phone] JAZMYNE LINDO Primary Care Provider Assessment Encounter Date Assessment Date Assessment LastModified by Organization Details LastModified Time 01/27/2024 01/27/2024 IMPRESSION: Possible benign intracranial hypertension as explanation, at least in part, of June 26-2022, onset of persistent, dizziness, arm tingling, partially improved slurring, visual blurring, and on June 29 headache, which also persists, all preceded by 2000 23-[facility] [place]. Neurological exam January 27 2024 is unrevealing except for fundi which I did not examine as I could not visualize them. Meningeal infection is also in the differential, but unlikely: I think it highly likely that the CSF assays sent by [facility] after September 10, 2023 lumbar puncture [...] find: Ophthalmology note, CSF results sent after [facility] Follow up after [facility] Not [...] likely that the CSF assays sent by [facility] after September 10, 2023 lumbar puncture [...] cervical spine without contrast February 13, 2024 [facility] radiology: Suboptimal evaluation secondary to motion. Within this constraint: The cervical spinal cord is normal in signal intensity. There is no high-grade central spinal canal stenosis. Up to moderate bilateral neuroforaminal stenosis at C4-5. MRV brain with and without IV contrast, [facility], compared to brain MRI December 17, 2018 and MR a head October 01, 2023 [facility]: No cerebral venous thrombosis, unremarkable study more generally. MRA head without contrast [facility] October 02, 2023: Normal. CSFNov2022 clear, colorless, WBC = 0, RBC = 12/8 [2 #4 presumably], glucose 106, total protein 25.1 serum: September 10 2023 glucose 210 test negative Lumbar puncture note [facility], September 10, 2023, for chief complaint [...] Jardiance, Lantus, ondansetron, rizatriptan PLAN Susan Escobedo ([facility]), March 24, 2024 She wants to think about whether she wants to continue working with me. She will call, and a week she thinks, if she does, and we agree that at that point I would look at [facility] interventional radiology and have her follow-up to [...] By Organization Details Last Modified Time 01/27/2024 [id number] Discussion acros s issues of diagnoses and management and same day associated chart review and management greater than 50% greater than 60 minutes [email or web address] Not available 01/27/2024 14:30:31 03/24/2024 [id number] PREVIOUS DISCUSSION >>>>>>>>January 27, 2024 initial neurology [...] ast No observ ation record ed. [email or web address] [facility] [address] [place], [address], 03/25/2024 16:03:10 Result Notes None recorded. Procedures Surgical History Date Name Laterality Status Provider Name and Address Organization Details Recorded Time 03/24/2024 DATA REVIEW completed Ilya Mckeon MD [address] [place], [place] [address], [address], [facility]rology [facility] 03/24/2024 10:16:01 01/27/2024 DATA REVIEW completed Ilya Mckeon MD [address] [place], [place] [address], [address], [facility] 01/27/2024 14:11:59 Imaging Results Imaging Date Name Status LastModified by Organiz [facility] Details LastModified Time 07/06/2023 MRI, brain, [...] MRI, cervical spine, w/o contrast completed [email or web address] [facility] [address] [facility], [place], [address], 03/25/2024 16:03:10 Procedure Notes None recorded. Medical Equipment None Reported. Allergies Allergen ID Allergen Name Allergen Category Reaction Reaction Severity Criticality Documentation Date Start Date Code Code System Note Provider Name and Address Organization Details Recorded Time 3895 heparin medicatio n Not available Not available Not available 01/27/2024 5224 RxNorm Eli Vegas [facility] 13:24:25 Medications Name Sig Start Date Stop [...] Not Available Not Available No t Available [employer]ex[employer] Dx Zeynep 3 Sensor device USE DIRECTED FOR DIABETES. CHANGE EVERY 14 DAYS active Not Available Not Available No t Available Vitals Date Recorded Body height Body mass index (BMI) Body weight Respiratory rate Provider Name and Address Organization Details Last Updated DateTime 01/27/2024 149.86 cm 46 kg/m2 338438.06 g 12 /min Eli Vegas [facility] 01/27/2024 13:24:17 Social History Question Answer Notes LastModified by Organizat ion Details LastModified Time Tobacco Smoking Status Never Smoker Eli haile [facility] 01/27/2024 13:26:01 What Is Your Level Of Alcohol Consumption? None Information not available 01/27/2024 What Is Your Level Of Caffeine Consumption? Moderate 1 Cup Daily Information not available 01/27/2024 What Is The Highest Grade Or Level Of School You Have Completed Or The Highest Degree You Have Received? [id number] Information not available 01/27/2024 Which Of Your [...] 13:25:29 Medical History Condition Response Claustrophobia N Head Trauma/Injury N Hospitalizations N High Blood Pressure or Hypertension N Thyroid Problems N Depression Y Brain Tumors N Lung Disease N COPD or emphysema N Encephalitis N PTSD N Vitamin B12 deficiency N Heart Attack ([place]) N Spine Problems N Obstructive Sleep Apnea N Alcoholism N Diabetes Y Autoimmune disease N Bleeding Disorder N Arthritis N Cerebral Palsy N Tuberculosis N Developmental Problems N Neck Problems N Cancer N Back Problems N Stroke N Asthma Y Heartburn, acid reflux, GERD N Vitamin D Deficiency N Epilepsy/Seizures N Bipolar Disorder N Sleep Disorder N Aneurysm N Hepatitis N Liver Disease N Heart Disease N Fibromyalgia N Headaches Y High Cholesterol or Hyperlipidemia N Osteoporosis N Kidney Disease N Gynecological HistoryNo gynecological history recorded. Obstetrics History GPAL:G 0 P 0 0 0 0 Past Encounters Encounter ID Performer Location Encounter Start Date Encounter Closed Date Diagnosis/Indication Diagnosis SNOMED-CT Code Diagnosis ICD10 Code Diagnosis Note [id number] Ilya Mckeon MD [facility] [address] [place] [address] [place] [address] 01/27/2024 12:43:24 01/27/2024 15:32:53 Benign intracranial hypertension 99229871 G93.2 Migraine without aura 56 271956 G43.009 [id number] Ilya Mckeon MD [facility] [address] [place] [address] [place] [address] 03/24/2024 09:45:33 03/24/2024 10:51:41 Benign intracranial hypertension 56169393 G93.2 Migraine without aura 56 701312 G43.009 Health Concerns Section Related Observation LastModified by Organization Detai ls LastModified Time None Recorded Concern Status LastModified by Organization Details LastModified Time None Recorded Advance Directives Directive None Recorded Payers Encounter Date Sequence Insurance Name Policy Number Policy Cowan Covered Member ID Cowan Member ID Guarantor Name 01/27/2024 1 [facility] [id number] Susan Escobedo [id number] Susan Escobedo 03/24/2024 1 [facility] [id number] Susan Escobedo [id number] Susan Escobedo Notes Date Note Type Note Provider Name and Address Organization Details Recorded Time 01/27/2024 text/html She presents for initial neurology consultation for assessment and management of June 26-2022, onset of persistent, dizziness, arm tingling, partially improved slurring, visual blurring, and on June 29 headache, which also persists, all preceded by 2000 23-[facility] [place].She is accompanied by her sister, Gracie.Before June 26, 2023, she rarely got headaches, at most three times a year, and always mild. The only tingling she has ever had has been below her right knee and her right leg since right-sided knee meniscus surgery. She has generally not had visual blurring or speech slurring or dizziness.On 2023 she spent the day [place]. She got very real on June 26 [...] note) after which neurology (JASWANT Rock) at [facility] gave her a diagnosis of idiopathic intracranial [...] less than previously, 50% Ilya Mckeon MD [address] [place] [address] [place], [phone], [facility]rology [facility] 01/27/2024 16:54:01 03/24/2024 text/html Follow up of [...] note) after which neurology (JASWANT Rock) at [facility] gave her a diagnosis of idiopathic intracranial [...] less than previously, 50% Ilya Mckeon MD [address] [place], [place] [address], [address], [facility] Neurology [facility] 03/24/2024 10:46:08 OBGyn Episode No OBEpisode recorded.
== END 2024-11-12 12:10 | disposition home or self-care (01) ==
LOC: HO.LNP 12:09
PROVIDERS: Visit Provider Nurse Practitioner Family
DX: E11.8 Type 2 diabetes mellitus with unspecified complications (principal); E55.9 Vitamin D deficiency, unspecified
CPT/HCPCS: 82043; 82570

== ENCOUNTER 2024-11-17 08:54 | Outpatient (AMB) | payer OTHER, SELFPAY ==
--- NOTE | 2024-11-17 09:04 | MHC.PC.OV ---
Vital Signs 11/17/24 09:14 Height 4 ft 11 in Weight 223 lb 8 oz BMI 45.1 BP 122/68 Blood Pressure Location Rt brachial Position Sitting Respiration 12 Pulse 92 Pulse Source Pulse Oximeter Temp 97.3 F Temp Source Oral Pulse Oximetry (%) 98 Oxygen Delivery Method Room Air Intake Visit Reasons: 3 mo 30min fu complex conditions, labs 1 week b Intake Note: follow up with labs review and patient also needs refill on meds Allergies Heparin Analogues [HEPARIN AGENTS] Allergy (Intermediate, Verified 11/17/24 09:44) HIVES, RASH, SEVERE BRUISING dulaglutide [From Trulicity] Allergy (Verified 11/17/24 09:44) Rash Medication List - Last Reconciled 11/17/24 by Madison Travis, OVEN HEATER- albuterol sulfate 90 mcg/actuation (Ventolin HFA) 2 puffs inhalation QID PRN albuterol sulfate 2.5 mg (3 mL) inhalation Q4-6H PRN baclofen 20 mg (2 x 10 mg) PO BEDTIME 30 days blood-glucose sensor ([employer] Zeynep 3 Sensor device) As directed blood-glucose sensor ([employer] G7 Sensor device) As directed canagliflozin (Invokana) 100 mg PO DAILY cholecalciferol (vitamin D3) 1,250 mcg PO QWEEK duloxetine mg PO DAILY dupilumab (Dupixent) 300 mg (2 mL) subcut Q2W fluticasone furoate-vilanterol 200-25 mcg/dose (Breo Ellipta) 1 inh inhalation DAILY indomethacin 25 mg PO TID 30 days insulin glargine (Lantus Solostar U-100 Insulin) 20 units subcut BID magnesium L-threonate mg PO metoclopramide HCl 5 - 10 mg (1 - 2 x 5 mg) PO Q4-6H 30 days MDD 4 tabs onabotulinumtoxinA (Botox) 200 units IM ONCE 12 weeks ondansetron 4 - 8 mg (1 - 2 x 4 mg) PO Q6-8H PRN 30 days propranolol mg PO 3XD riboflavin (vitamin B2) 400 mg PO DAILY 30 days rimegepant (Nurtec ODT) 75 mg PO Q OTHER DAY thiamine HCl (vitamin B1) 50 mg PO DAILY tirzepatide (Mounjaro) mg subcut Tobacco use date assessed: 09/09/24 Dental Screening Dental Screen Date: 08/19/24 HPI HPI Comments History of Present Illness Details 44 year old female with mild intermittent asthma, DM 2, history of COVID-19, DVT, Idiopathic intracranial with chiari malformation HTN, migraine headaches, IBS, Sleep apnea, Vit D def Status post carpal tunnel repair, tonsillectomy, R knee surgery 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 Colon ? 09/2024 Mammo WNL ? PAP due for pap, has IUD placed 3 years ago. ? Tdap 2017, declined flu 08/21/24 [facility] exam negative for DM retinopathy bilat; Glaucoma suspect. Exam 10/2024 reports WNL this was done to eval blurred vision. Specialists: [place] wu appt December 2024 [facility] [place] [facility] [place] [facility] Ophthalmology: 07/07/24 [facility], DM Eye negative for retinopathy, visit [facility] [place] and [place] appts in Nov Here today for routine fu of complex conditions. Now on cymbalta and propranolol for anxiety she was started on Migranol for her headaches She was taken off diamox given side effects and is feeling back to baseline Tolerating Invokana - denies side effects. a1c improved, slightly. Likes the dexcom better than zeynep however using zeynep at this time. Will try for dexom -- requires PA Swimming 3 x week, going to PT Will start botox Nov 4 for headaches Will be starting Dupixent RXd by Pulm Requesting referral for repeat colon, had one done in the past. Labs from 11/11/2024 show a normal CBC, normal electrolytes, normal renal function, fasting glucose of 217, A1c 8.1% which is better than previous of 8.2%, calcium 9.8, mild elevation in the ALT of 36, AST and alk phos normal, normal total protein, LDL at goal, HDL 39 B12 low end of normal at 308, vitamin-D normal, folate and TSH within normal limits Exam: Awake alert NAD RRR LS clear & dim throughout faint exp wheezes BLL Nonpitting edema RLE (reports chronic s/p surgery), edema LLE, pedal pulses normal, skin intact Mood and affect appropriate Labs from 11/11/2024 show a normal CBC, normal electrolytes, normal renal function, fasting glucose of 217, A1c 8.1% which is better than previous of 8.2%, calcium 9.8, mild elevation in the ALT of 36, AST and alk phos normal, normal total protein, LDL at goal, HDL 39 B12 low end of normal at 308, vitamin-D normal, folate and TSH within normal limits Plan The plan today will be to increase her Invokana from 100 mg to 300 mg daily to have better diabetic control. Educated about monitoring for infections and to hydrate liberally. Refer to gastroenterology per request for a repeat colonoscopy. Continue all medications as currently ordered. Continue care management with her current care team. Asked her plsql developer about alternative treatments to your sleep apnea as you have been unable to tolerate CPAP machines in the past. Refer to dietitian to see if they can help you with your diet given the chronic nausea and vomiting associated with her other health conditions. With the diabetes management. Send me a message in the portal let me know if the Dexcom is covered. If it was not please continue to use Zeynep. Return to the office in 3 months for routine complex follow up with labs done 1 week before. Sooner as needed. Total time spent caring for the patient today was 45 minutes. This includes time spent before the visit reviewing the chart, time spent during the visit, and time spent after the visit on documentation, reviewing laboratory results, diagnostic imaging, medications, performing a medically necessary evaluation, counseling on diagnoses, care coordination, ordering appropriate tests, ordering appropriate medications, review of tests performed by other providers, reporting test results with the patient, communication with other healthcare providers. PFSH Medical History Asthma Sleep apnea Hypertension IBS (irritable bowel syndrome) DVT (deep venous thrombosis) COVID-19 Diabetes Surgical History [place] teeth extracted Hx of carpal tunnel repair Hx of tonsillectomy Hx of knee surgery Family History Maternal Grandfather Substance abuse Heart attack Maternal Grandmother Stomach cancer Father Diabetes Asthma Mother Asthma Social History Household Members: Family Housing: House Do you presently have visiting nurse or other home services: No 75 years or older and lives alone: No Alcohol intake: never Patient Tobacco Use Status: Never used Tobacco e-Cigarette/Vaping Use: Never Used Advance Directives Date on File: 06/29/22 service: No Current occupational status: employed Cognitive needs: Yes Hearing needs: Yes Vision needs: Yes (wear glasses) Questionnaire PHQ-9 Over the last 2 weeks, how often have you been bothered by any of the following problems? 1. Little interest or pleasure in doing things: nearly every day 2. Feeling down, depressed, or hopeless: nearly every day 3. Trouble falling or staying asleep, or sleeping too much: nearly every day 4. Feeling tired or having little energy: nearly every day 5. Poor appetite or overeating: nearly every day 6. Feeling bad about yourself - or that you are a failure or have let yourself or your family down: nearly every day 7. Trouble concentrating on things, such as reading the newspaper or watching television: nearly every day 8. Moving or speaking so slowly that other people could have noticed. Or the opposite - being so fidgety or restless that you have been moving around a lot more than usual: several days 9. Thoughts that you would be better off or of hurting yourself in some way: not at all Total score: 22 Depression Screening Interpretation: Positive Depression Screening Follow-up: Existing condition Depression Screening Done: Yes 43682 - PHQ-9 Billing: Yes Source: Developed by Drs. Aj Becker, Roxanna Mahan, Mino Moore and colleagues, with an educational fabricio from [employer]. Thrive Questionnaire Date Thrive assessed: 11/17/24 I am a: Patient What is your living situation today?: I have a steady place to live Within the past 12 months, did the food you bought not last and you didn't have the money to get more?: I choose not to answer this question Within the past 12 months, did you worry whether your food would run out before you got money to buy more?: I choose not to answer this question Do you have trouble paying for medicines?: No Do you have trouble getting transportation to medical appointments?: No Do you have trouble paying your heating and electricity bill?: I choose not to answer this question Do you have trouble taking care of your child, family member or friend?: I choose not to answer this question Do you have trouble with day-to-day activities such as bathing, preparing meals, shopping, managing finances, etc.?: I choose not to answer this question Are you currently unemployed and looking for a job?: I choose not to answer this question Are you interested in more education?: I choose not to answer this question Please select the resources that you would like help with: None Currently or been in a relationship where the following occur: I choose not to answer THRIVE Score: 0 AUDIT C Alcohol Use Questionnaire (AUDIT-C) 1. How often do you have a drink containing alcohol?: Never 3. How often do you have six or more drinks on one occasion?: Never Total Score: 0 Score Reviewed/Action Taken: Yes SILVERIO-7 AMB Questionnaire SILVERIO-7 Date SILVERIO - 7 assessed: 11/17/24 Feeling nervous, anxious, or on edge: 3 = Nearly every day Not being able to stop or control worryin = Nearly every day Worrying too much about different things: 3 = Nearly every day Trouble relaxin = Nearly every day Being so restless that it is hard to sit still: 3 = Nearly every day Becoming easily annoyed or irritable: 3 = Nearly every day Feeling afraid as if something awful might happen: 3 = Nearly every day Total SILVERIO-7 score (0-4 normal; 5-9 mild; 10-14 moderate; 15-21 severe): 21 Source: Developed by Drs. Aj Becker, Roxanna Mahan, Mino Moore and colleagues, with an educational fabricio from [employer]. SILVERIO-7 Assessment Billing SILVERIO-7 Assessment Tool: SILVERIO-7 Assessment 64300 Physical exam (Primary Care) Vital Signs: Last Vital Signs Temp 97.3 F 11/17/24 09:14 Pulse 92 11/17/24 09:14 Resp 12 11/17/24 09:14 BP 122/68 11/17/24 09:14 Pulse Ox 98 11/17/24 09:14 Oxygen Delivery Method Room Air 11/17/24 09:14 BMI result Body Mass Index 45.1 Tobacco/Smoking Status: Tobacco use Status Tobacco use date assessed 09/09/24 11/17/24 09:04 Patient Tobacco Use Status Never used Tobacco 11/17/24 09:04 e-Cigarette/Vaping Use Never Used 11/17/24 09:04 PHQ-9: PHQ-9 Score PHQ-9: Total score 22 11/17/24 09:04 Depression Screening Interpretation: Positive Depression Screening Follow-up: Existing condition Thrive Assessment: Date of Thrive Assessment Date Thrive assessed 11/17/24 11/17/24 09:04 Currently or been in a relationship where the following occur: I choose not to answer Coding Level of Care Code Est Pt Level 5 (89944) Complex EM visit Add On G2211 Diagnoses Diabetes mellitus type 2 with complications E11.8 Type 2 diabetes mellitus with hyperglycemia, with long-term current use of insulin E11.65; Z79.4 Diabetes mellitus complication status: with hyperglycemia Vitamin D deficiency E55.9 Chronic migraine without aura without status migrainosus, not intractable G43.709 Status migrainosus presence: without status migrainosus Intractability: not intractable Chiari I malformation G93.5 Intracranial hypertension G93.2 Severe persistent asthma without complication J45.50 Asthma complication type: uncomplicated Obstructive sleep apnea G47.33 Moderate episode of recurrent major depressive disorder F33.1 Major depression episode severity: moderate SILVERIO (generalized anxiety disorder) F41.1 BMI 45.0-49.9, adult Z68.42 Morbid obesity with BMI of 45.0-49.9, adult E66.01; Z68.42 Additional Codes SILVERIO-7 Assessment Billing - SILVERIO-7 Assessment Tool: SILVERIO-7 Assessment 15212 ([id number]) PHQ-9 - 85412 - PHQ-9 Billing: Yes ([id number]) Assessment & Plan Assessment & Plan (1) Diabetes mellitus type 2 with complications: Code(s): E11.8 - Type 2 diabetes mellitus with unspecified complications Category: Medical (2) Insulin use (long-term) in type 2 diabetes: Code(s): E11.9 - Type 2 diabetes mellitus without complications; Z79.4 - [facility]termaker (current) use of insulin Category: Medical Qualifiers: Diabetes mellitus complication status: with hyperglycemia Qualified Code(s): E11.65 - Type 2 diabetes mellitus with hyperglycemia; Z79.4 - [facility] (current) use of insulin (3) Vitamin D deficiency: Code(s): E55.9 - Vitamin D deficiency, unspecified Category: Medical (4) Chronic migraine without aura: Code(s): G43.709 - Chronic migraine without aura, not intractable, without status migrainosus Category: Medical Qualifiers: Status migrainosus presence: without status migrainosus Intractability: not intractable Qualified Code(s): G43.709 - Chronic migraine without aura, not intractable, without status migrainosus (5) Chiari I malformation: Code(s): G93.5 - Compression of brain Category: Medical (6) Intracranial hypertension: Comment: No recent evidence of papilledema. Patient has had weight loss since initial LP showed elevated OP. Code(s): G93.2 - Benign intracranial hypertension Category: Medical (7) Severe persistent asthma: Code(s): J45.50 - Severe persistent asthma, uncomplicated Category: Medical Qualifiers: Asthma complication type: uncomplicated Qualified Code(s): J45.50 - Severe persistent asthma, uncomplicated (8) Obstructive sleep apnea: Comment: should be on CPAP but cannot tolerate Code(s): G47.33 - Obstructive sleep apnea (adult) (pediatric) Category: Medical (9) MDD (major depressive disorder), recurrent episode: Code(s): F33.9 - Major depressive disorder, recurrent, unspecified Category: Medical Qualifiers: Major depression episode severity: moderate Qualified Code(s): F33.1 - Major depressive disorder, recurrent, moderate (10) SILVERIO (generalized anxiety disorder): Code(s): F41.1 - Generalized anxiety disorder Category: Medical (11) BMI 45.0-49.9, adult: Comment: HLD and DM and HTN Code(s): Z68.42 - Body mass index [BMI] 45.0-49.9, adult Category: Medical (12) Morbid obesity with BMI of 45.0-49.9, adult: Comment: with HLD and BM and HTN Code(s): E66.01 - Morbid (severe) obesity due to excess calories; Z68.42 - Body mass index [BMI] 45.0-49.9, adult Category: Medical Plan . Orders: Orders Comprehensive [place]. Panel Fast 3 Months E11.65 - Type 2 diabetes mellitus with hyperglycemia, E11.8 - Type 2 diabetes mellitus with unspecified complications, Z79.4 - [facility] (current) use of insulin Referrals [facility] Referral E11.8 - Type 2 diabetes mellitus with unspecified complications, E66.01 - Morbid (severe) obesity due to excess calories, Z68.42 - Body mass index [BMI] 45.0-49.9, adult Gastroenterology Referral Z12.11 - Encounter for screening for malignant neoplasm of colon Medications: New insulin glargine (Lantus Solostar U-100 Insulin) 20 units (0.2 mL) subcut BID 15 mL 12RF pen needle, diabetic (Ultra-Thin II Insulin Pen Oriental) As directed 100 ea 12RF blood-glucose sensor (Dexcom G7 Sensor device) As directed 4 ea 12RF E11.8 - Type 2 diabetes mellitus with unspecified complications, E11.9 - Type 2 diabetes mellitus without complications, Z79.4 - [facility] (current) use of insulin canagliflozin (Invokana) 300 mg PO DAILY 90 tabs 0RF Discontinued canagliflozin (Invokana) Discontinued Reason: Doctor's Order 100 mg PO DAILY 90 tabs 0RF
[2024-11-17 09:14] VITALS: BP 122/68; PULSE 92; RESP 12; TEMP 36.3; O2SAT 98; BMI 45.1
== END 2024-11-17 10:15 | disposition home or self-care (01) ==
PROVIDERS: PCP Nurse Practitioner Family; Visit Provider Nurse Practitioner Family
DX: E11.8 Type 2 diabetes mellitus with unspecified complications (principal); E11.65 Type 2 diabetes mellitus with hyperglycemia; Z79.4 Long term (current) use of insulin; G93.5 Compression of brain; J45.50 Severe persistent asthma, uncomplicated; F33.1 Major depressive disorder, recurrent, moderate; Z68.42 Body mass index [BMI] 45.0-49.9, adult; E66.01 Morbid (severe) obesity due to excess calories; E55.9 Vitamin D deficiency, unspecified; G43.709 Chronic migraine without aura, not intractable, without status migrainosus; G93.2 Benign intracranial hypertension; G47.33 Obstructive sleep apnea (adult) (pediatric)

== ENCOUNTER → 2024-11-17 08:54 | Outpatient (BNVA) | payer OTHER, SELFPAY | PROVIDERS: PCP Nurse Practitioner; Visit Provider Nurse Practitioner Family | DX: E11.65 Type 2 diabetes mellitus with hyperglycemia (principal); E55.9 Vitamin D deficiency, unspecified; G43.709 Chronic migraine without aura, not intractable, without status migrainosus; G93.5 Compression of brain; G93.2 Benign intracranial hypertension; J45.50 Severe persistent asthma, uncomplicated; G47.33 Obstructive sleep apnea (adult) (pediatric); F33.1 Major depressive disorder, recurrent, moderate; F41.1 Generalized anxiety disorder; E66.01 Morbid (severe) obesity due to excess calories; Z68.42 Body mass index [BMI] 45.0-49.9, adult; Z71.3 Dietary counseling and surveillance; Z79.4 Long term (current) use of insulin | CPT/HCPCS: 96127; 99212 ==

== ENCOUNTER 2024-11-20 08:41 | Outpatient (AMB) | payer OTHER, SELFPAY ==
--- OUTSIDE RECORDS SUMMARY | 2024-11-20 08:55 | XMS_ITS | Clinical Summary ---
Author Organization [facility] ity Address [address] [place] [address] Care Team Providers Care Clerical Car Checker Name Role Phone Nicola Spears MD Primary Care Provider [phone] Surgical History Surgery Date Site/Laterality Comments CARPAL TUNNEL RELEASE PROCEDURE: SC NEUROPLASTY &/TRANSPOS MEDIAN NRV CARPAL TUNNE; COMMENT: bilateral TONSILLECTOMY PROCEDURE: HISTORICAL TONSILLECTOMY COLONOSCOPY 05/01/2018 PROCEDURE: OUTSIDE COLONOSCOPY; COMMENT: diminutive tubular adenoma polyp. random colonic bx normal. KNEE ARTHROSCOPY W/ MENISCAL REPAIR 12/11/2019 PROCEDURE: SC ARTHROSCOPY KNEE W/MENISCUS RPR MEDIAL/LATERAL; COMMENT: root repair; [facility] Medical History Date Comments Chiari [...] obesity with BMI o f 45.0-49.9, adult ([facility]) Tubular adenoma of colon 05/15/2018 DX:Tubu [...] age to complete this topic Care Teams Clerical Car Checker Relationship Specialty Start Date End Date Nicola Spears MD [address] [place] [address] PCP - General Internal Medicine 10/27/21
--- OUTSIDE RECORDS SUMMARY | 2024-11-20 08:55 | XMS_ITS | Data Portability ---
Author Organization [facility] [employer], [employer] Address [address] [place] [address] [place] [address] Care Team Providers Care Leadite Worker Name Role Phone JAZMYNE LINDO Referring Provider JAZMYNE LINDO Primary Care Provider Assessment Encounter [...] likely that the CSF assays sent by [facility] after September 10, 2023 lumbar puncture [...] find: Ophthalmology note, CSF results sent after [facility] Follow up after mrossen Not [...] likely that the CSF assays sent by [facility] after September 10, 2023 lumbar puncture [...] cervical spine without contrast February 13, 2024 [facility] radiology: Suboptimal evaluation secondary to motion. Within this constraint: The cervical spinal cord is normal in signal intensity. There is no high-grade central spinal canal stenosis. Up to moderate bilateral neuroforaminal stenosis at C4-5. MRV brain with and without IV contrast, [facility], compared to brain MRI December 17, 2018 and MR a head October 01, 2023 [facility]: No cerebral venous thrombosis, unremarkable study more generally. MRA head without contrast [facility] October 02, 2023: Normal. CSFNov2022 clear, colorless, WBC = 0, RBC = 12/8 [2 #4 presumably], glucose 106, total protein 25.1 serum: September 10 2023 glucose 210 test negative Lumbar puncture note [facility], September 10, 2023, for chief complaint [...] at that point I would look at [facility] interventional radiology and have her follow-up to [...] By Organization Details Last Modified Time 01/27/2024 03671 Discussion acros s issues of diagnoses and management and same day associated chart review and management greater than 50% greater than 60 minutes mrossen Not available 01/27/2024 14:30:31 03/24/2024 [id number] PREVIOUS DISCUSSION >>>>>>>>January 27, 2024 initial neurology [...] ast No observ ation record ed. [email or web address] [facility] [address] [place], [address], 03/25/2024 16:03:10 Result Notes None recorded. Procedures Surgical History Date Name Laterality Status Provider Name and Address Organization Details Recorded Time 03/24/2024 DATA REVIEW completed Ilya Mckeon MD [address] [place], [place] [address], [phone], [facility] 03/24/2024 10:16:01 01/27/2024 DATA REVIEW completed Ilya Mckeon MD [address] [place], [place] [address], [address], [facility] 01/27/2024 14:11:59 Imaging Results Imaging Date Name Status LastModified by Organiz [facility] Details LastModified Time 07/06/2023 MRI, brain, [...] MRI, cervical spine, w/o contrast completed [email or web address] [facility] [address] [facility], [place], [address], 03/25/2024 16:03:10 Procedure Notes None recorded. Medical Equipment None Reported. Allergies Allergen ID Allergen Name Allergen Category Reaction Reaction Severity Criticality Documentation Date Start Date Code Code System Note Provider Name and Address Organization Details Recorded Time 3895 heparin medicatio n Not available Not available Not available 01/27/2024 5224 RxNorm Eli Vegas [facility] 13:24:25 Medications Name Sig Start Date [...] Not Available Not Available No t Available [employer] Zeynep 3 Sensor device USE DIRECTED FOR DIABETES. CHANGE EVERY 14 DAYS active Not Available Not Available No t Available Vitals Date Recorded Body height Body mass index (BMI) Body weight Respiratory rate Provider Name and Address Organization Details Last Updated DateTime 01/27/2024 149.86 cm 46 kg/m2 068569.06 g 12 /min Eli Vegas [facility] 01/27/2024 13:24:17 Social History Question Answer Notes LastModified by Organizat ion Details LastModified Time Tobacco Smoking Status Never Smoker Eli haile [facility] 01/27/2024 13:26:01 What Is Your Level Of Alcohol Consumption? None Information not available 01/27/2024 What Is Your Level Of Caffeine Consumption? Moderate 1 Cup Daily Information not available 01/27/2024 What Is The Highest Grade Or Level Of School You Have Completed Or The Highest Degree You Have Received? [id number] Information not available 01/27/2024 Which Of Your [...] available 2023 13:25:29 Medical History Condition Response Head Trauma/Injury N Depression Y Lung Disease N COPD or emphysema N Spine Problems N Obstructive Sleep Apnea N Alcoholism N Autoimmune disease N Arthritis N Developmental Problems N Cancer N Stroke N Heartburn, acid reflux, GERD N Vitamin D Deficiency N Liver Disease N Fibromyalgia N Headaches Y Kidney Disease N Claustrophobia N Hospitalizations N High Blood Pressure or Hypertension N Thyroid Problems N Brain Tumors N Encephalitis N Vitamin B12 deficiency N PTSD N Heart Attack ([place]) N Diabetes Y Bleeding Disorder N Cerebral Palsy N Tuberculosis N Neck Problems N Back Problems N Asthma Y Epilepsy/Seizures N Bipolar Disorder N Sleep Disorder N Aneurysm N Hepatitis N Heart Disease N High Cholesterol or Hyperlipidemia N Osteoporosis N Gynecological HistoryNo gynecological history recorded. Obstetrics History GPAL:G 0 P 0 0 0 0 Past Encounters Encounter ID Performer Location Encounter Start Date Encounter Closed Date Diagnosis/Indication Diagnosis SNOMED-CT Code Diagnosis ICD10 Code Diagnosis Note [id number] Ilya Mckeon MD [facility] [address] [place] [address] [place] [address] 01/27/2024 12:43:24 01/27/2024 15:32:53 Benign intracranial hypertension 05852193 G93.2 Migraine without aura 56 015992 G43.009 [id number] Ilya Mckeon MD [facility] [address] [place] [address] [place] [address] 03/24/2024 09:45:33 03/24/2024 10:51:41 Benign intracranial hypertension 39177615 G93.2 Migraine without aura 56 288006 G43.009 Health Concerns Section Related Observation LastModified by Organization Detai ls LastModified Time None Recorded Concern Status LastModified by Organization Details LastModified Time None Recorded Advance Directives Directive None Recorded Payers Encounter Date Sequence Insurance Name Policy Number Policy Cowan Covered Member ID Cowan Member ID Guarantor Name 01/27/2024 1 [facility] [id number] Susan Escobedo [id number] Susan Escobedo 03/24/2024 1 [facility] [id number] Susan Escobedo [id number] Susan Escobedo Notes Date Note Type Note Provider Name and Address Organization Details Recorded Time 01/27/2024 text/html She presents for initial neurology consultation for assessment and management of June 26-2022, onset of persistent, dizziness, arm tingling, partially improved slurring, visual blurring, and on June 29 headache, which also persists, all preceded by 2000 23[place]She is accompanied by her sister, Gracie.Before June 26, 2023, she rarely got headaches, at most three times a year, and always mild. The only tingling she has ever had has been below her right knee and her right leg since right-sided knee meniscus surgery. She has generally not had visual blurring or speech slurring or dizziness.On 2023 she [place] the day [place]. She got very real on June 26 [...] note) after which neurology (JASWANT Rock) at [facility] gave her a diagnosis of idiopathic [...] less than previously, 50% Ilya Mckeon MD [address] [place] [address] [place], [address], [facility] 01/27/2024 16:54:01 03/24/2024 text/html Follow up [...] note) after which neurology (JASWANT Rock) at [facility] gave her a diagnosis of idiopathic [...] less than previously, 50% Ilya Mckeon MD [address] [place], [place] [address], [address], [facility] 03/24/2024 10:46:08 OBGyn Episode No OBEpisode recorded.
[2024-11-20 09:02] VITALS: BP 110/60; PULSE 97; O2SAT 97
--- NOTE | 2024-11-20 09:02 | MHC.OFFVIS ---
Vital Signs 11/20/24 09:02 Height 4 ft 11 in BP 110/60 Blood Pressure Location Rt brachial Position Sitting Pulse 97 Pulse Source Pulse Oximeter Pulse Oximetry (%) 97 Oxygen Delivery Method Room Air Intake Visit Reasons: Dupixent teaching Allergies Heparin Analogues [HEPARIN AGENTS] Allergy (Intermediate, Verified 11/20/24 09:03) HIVES, RASH, [place] dulaglutide [From Trulicity] Allergy (Verified 11/20/24 09:03) Rash Medication List - Last Reconciled 11/20/24 by Thelma Sutton LPN albuterol sulfate 90 mcg/actuation (Ventolin HFA) 2 puffs inhalation QID PRN albuterol sulfate 2.5 mg (3 mL) inhalation Q4-6H PRN baclofen 20 mg (2 x 10 mg) PO BEDTIME 30 days blood-glucose sensor ([employer] Zeynep 3 Sensor device) As directed blood-glucose sensor (DexSplother G7 Sensor device) As directed canagliflozin (Invokana) 300 mg PO DAILY cholecalciferol (vitamin D3) 1,250 mcg PO QWEEK duloxetine mg PO DAILY dupilumab (Dupixent) 300 mg (2 mL) subcut Q2W fluticasone furoate-vilanterol 200-25 mcg/dose (Breo Ellipta) 1 inh inhalation DAILY indomethacin 25 mg PO TID 30 days insulin glargine (Lantus Solostar U-100 Insulin) 20 units (0.2 mL) subcut BID magnesium L-threonate mg PO metoclopramide HCl 5 - 10 mg (1 - 2 x 5 mg) PO Q4-6H 30 days MDD 4 tabs onabotulinumtoxinA (Botox) 200 units IM ONCE 12 weeks ondansetron 4 - 8 mg (1 - 2 x 4 mg) PO Q6-8H PRN 30 days pen needle, diabetic (Ultra-Thin II Insulin Pen [place]) As directed propranolol mg PO 3XD riboflavin (vitamin B2) 400 mg PO DAILY 30 days rimegepant (Nurtec ODT) 75 mg PO Q OTHER DAY thiamine HCl (vitamin B1) 50 mg PO DAILY tirzepatide (Mounjaro) mg subcut HPI HPI Dupixent teaching: Details: Allie is here for a Dupixent teach she was educated on hand washing, injection preparation, administration, and disposal.?Allie was able to return demonstrate proper technique for hand washing, injection preparation, administration and disposal of needle and states she has no questions at this time. Medication Dupixent 300mg/2mL pre-filled pen (patient?s own meds) Loading dose of 600mg given by the patient in 2 SQ injections; injection #1 L abdomen ;? injection #2 R abdomen Lot# [id number] expires 05/20/2026 [facility] [phone]. Patient aware her next injection is in 15 days. Nurse visit only.? PFSH Medical History Asthma Sleep apnea Hypertension IBS (irritable bowel syndrome) DVT (deep venous thrombosis) COVID-19 Diabetes Surgical History [place] teeth extracted Hx of carpal tunnel repair Hx of tonsillectomy Hx of knee surgery Family History Maternal Grandfather Substance abuse Heart attack Maternal Grandmother Stomach cancer Father Diabetes Asthma Mother Asthma Social History Household Members: Family Housing: House Do you presently have visiting nurse or other home services: No 75 years or older and lives alone: No Alcohol intake: never Patient Tobacco Use Status: Never used Tobacco e-Cigarette/Vaping Use: Never Used Advance Directives Date on File: 06/29/22 service: No Current occupational status: employed Cognitive needs: Yes Hearing needs: Yes Vision needs: Yes (wear glasses) Physical Exam Vital Signs: Last Vital Signs Pulse 97 11/20/24 09:02 BP 110/60 11/20/24 09:02 Pulse Ox 97 11/20/24 09:02 Oxygen Delivery Method Room Air 11/20/24 09:02 Assessment & Plan Assessment & Plan (1) Severe persistent asthma: Code(s): J45.50 - Severe persistent asthma, uncomplicated Category: Medical Qualifiers: Asthma complication type: uncomplicated Qualified Code(s): J45.50 - Severe persistent asthma, uncomplicated Plan: Dupixent teaching Coding Level of Care Code Established Pt Est Pt Level 1 (99079) Patient Type Established Diagnoses Severe persistent asthma without complication J45.50 Asthma complication type: uncomplicated Comment NURSE VISIT ONLY
== END 2024-11-20 09:07 | disposition home or self-care (01) ==
PROVIDERS: PCP Nurse Practitioner Family; Visit Provider Internal Medicine Pulmonary Disease
DX: J45.50 Severe persistent asthma, uncomplicated (principal)

== ENCOUNTER → 2024-11-20 08:41 | Outpatient (BNVA) | payer OTHER, SELFPAY | PROVIDERS: PCP Nurse Practitioner Family; Visit Provider Internal Medicine Pulmonary Disease | DX: J45.50 Severe persistent asthma, uncomplicated (principal) | CPT/HCPCS: 99211 ==

== ENCOUNTER 2024-11-24 12:57 | Outpatient (AMB) | payer OTHER, SELFPAY ==
[2024-11-24 13:09] VITALS: BMI 44.6
--- NOTE | 2024-11-24 13:09 | A.OFFVIS_ITS ---
Vital Signs 11/24/24 13:09 Height 4 ft 11 in Weight 221 lb BMI 44.6 Intake Visit Reasons: Botox Intake Note: Patient presents for botox injection Allergies Heparin Analogues [HEPARIN AGENTS] Allergy (Intermediate, Verified 11/20/24 09:03) HIVES, RASH, [place] dulaglutide [From Trulicity] Allergy (Verified 11/20/24 09:03) Rash Medication List - Last Reconciled 11/24/24 by Guerline Fernandez MD albuterol sulfate 90 mcg/actuation (Ventolin HFA) 2 puffs inhalation QID PRN albuterol sulfate 2.5 mg (3 mL) inhalation Q4-6H PRN baclofen 20 mg (2 x 10 mg) PO BEDTIME 30 days blood-glucose sensor ([employer] Zeynep 3 Sensor device) As directed blood-glucose sensor (eBoox G7 Sensor device) As directed canagliflozin (Invokana) 300 mg PO DAILY cholecalciferol (vitamin D3) 1,250 mcg PO QWEEK duloxetine mg PO DAILY dupilumab (Dupixent) 300 mg (2 mL) subcut Q2W fluticasone furoate-vilanterol 200-25 mcg/dose (Breo Ellipta) 1 inh inhalation DAILY indomethacin 25 mg PO TID 30 days insulin glargine (Lantus Solostar U-100 Insulin) 20 units (0.2 mL) subcut BID magnesium L-threonate mg PO metoclopramide HCl 5 - 10 mg (1 - 2 x 5 mg) PO Q4-6H 30 days MDD 4 tabs onabotulinumtoxinA (Botox) 200 units IM ONCE 12 weeks ondansetron 4 - 8 mg (1 - 2 x 4 mg) PO Q6-8H PRN 30 days pen needle, diabetic (Ultra-Thin II Insulin Pen [place]) As directed propranolol mg PO 3XD riboflavin (vitamin B2) 400 mg PO DAILY 30 days rimegepant (Nurtec ODT) 75 mg PO Q OTHER DAY thiamine HCl (vitamin B1) 50 mg PO DAILY tirzepatide (Mounjaro) mg subcut HPI Comments Details: ? 44y/o female comes for treatment of migraines with botox. ??? Most frequent reported adverse reactions following injection of botox for chronic migraine include neck pain (9%), headache(5%), eyelid ptosis(4%), migraine(4%), muscular weakness(4%), musculuskeletal stiffness(4%), bronchitis(3%), injection site pain (3%), musculoskeletal pain(3%), myalgia(3%), facial paresis(2%), HTN(2%) and muscle spasms(2%) were discussed in detail. ??? Botulinum toxin typeA 200units Lot no [id number] expiration December 2026 was diluted with 4 cc of normal saline . ??? Muscles injected- ??? Frontalis 4 sites ??? Procerus 1 site ??? Boiler Coverer Helper- 2 sites ??? Temporalis- 8 sites ??? Occipitalis- 6 sites ??? Cervical paraspinals- 4 sites ??? Trapezius- 6 sites- 10 units each ??? 5 units each in 31 site ??? Total use- 185units ??? Discarded-15units PFSH Medical History Asthma Sleep apnea Hypertension IBS (irritable bowel syndrome) DVT (deep venous thrombosis) COVID-19 Diabetes Surgical History [place] teeth extracted Hx of carpal tunnel repair Hx of tonsillectomy Hx of knee surgery Family History Maternal Grandfather Substance abuse Heart attack Maternal Grandmother Stomach cancer Father Diabetes Asthma Mother Asthma Social History Household Members: Family Housing: House Do you presently have visiting nurse or other home services: No 75 years or older and lives alone: No Alcohol intake: never Patient Tobacco Use Status: Never used Tobacco e-Cigarette/Vaping Use: Never Used Advance Directives Date on File: 06/29/22 service: No Current occupational status: employed Cognitive needs: Yes Hearing needs: Yes Vision needs: Yes (wear glasses) Physical Exam Vital Signs: BMI result Body Mass Index 44.6 Const General: cooperative and no acute distress Orientation/consciousness: patient oriented x3 Resp Effort & Inspection: normal respiratory effort and able to speak in complete sentences Neuro General: patient oriented x3 and moves all extremities Cranial nerves: Yes CN's II-XII intact bilaterally Cognition (Neuro): normal cognition Psych Appearance: grossly normal Mental Status: mental status grossly normal Speech and movement: Normal speech and movement present Affect: normal affect Attitude: cooperative Office Procedures Botulinum toxin Injection 16431 - Migraine Procedure code (CPT) selection complete Office Meds onabotulinumtoxinA 200 unit solution for injection Performing Provider: Guerline Fernandez MD Performing Location: [facility] Administered by: Guerline Fernandez MD on 11/24/24 13:44 Dose Route Admin Location Dispensed Lot Number Expiration Date [facility] [place] [employer] 185 unit subcut 200 units [id number] ALLERGAN/BOTOX Comments: see hpi Assessment & Plan Assessment & Plan (1) Chronic migraine without aura: Code(s): G43.709 - Chronic migraine without aura, not intractable, without status migrainosus Category: Medical Qualifiers: Status migrainosus presence: without status migrainosus Intractability: not intractable Qualified Code(s): G43.709 - Chronic migraine without aura, not intractable, without status migrainosus Plan Patient tolerated the procedure well she will call with any side effects Orders: Orders AMB Botulinum toxin Injection - Patient Supplied N/C Today G43.709 - Chronic migraine without aura, not intractable, without status migrainosus Medications: New onabotulinumtoxinA 200 units subcut ONCE 1 ea 0RF migraine G43.709 - Chronic migraine without aura, not intractable, without status migrainosus Coding Level of Care Code Est Pt Level 1 (56907) Diagnoses Chronic migraine without aura without status migrainosus, not intractable G43.709 Status migrainosus presence: without status migrainosus Intractability: not intractable CPT Codes Botox Injection - Botox 3: 18167 - Migraine ([id number])
--- OUTSIDE RECORDS SUMMARY | 2024-11-24 13:20 | XMS_ITS | Clinical Summary ---
Author Organization [facility] ity Address [address] [place] [address] Care Team Providers Care Half Section Ironer Name Role Phone Nicola Spears MD Primary Care Provider [phone] Surgical History Surgery Date Site/Laterality Comments CARPAL TUNNEL RELEASE PROCEDURE: ME NEUROPLASTY &/TRANSPOS MEDIAN NRV CARPAL TUNNE; COMMENT: bilateral TONSILLECTOMY PROCEDURE: HISTORICAL TONSILLECTOMY COLONOSCOPY 05/01/2018 PROCEDURE: OUTSIDE COLONOSCOPY; COMMENT: diminutive tubular adenoma polyp. random colonic bx normal. KNEE ARTHROSCOPY W/ MENISCAL REPAIR 12/11/2019 PROCEDURE: ME ARTHROSCOPY KNEE W/MENISCUS RPR MEDIAL/LATERAL; COMMENT: root repair; [facility] Medical History Medical History Date Comments [...] obesity with BMI o f 45.0-49.9, adult ([facility]) Tubular adenoma of colon 05/15/2018 DX:Tubu lar [...] age to complete this topic Care Teams Half Section Ironer Relationship Specialty Start Date End Date Niocla Spears MD [address] [place] [address] PCP - General Internal Medicine 10/27/21
--- OUTSIDE RECORDS SUMMARY | 2024-11-24 13:20 | XMS_ITS | Data Portability ---
Author Organization [facility] [facility] [employer] Address [address] [place] [address] [place] [address] Care Team Providers Care Aluminum Boats Assembler Name Role Phone JAZMYNE LINDO Referring Provider [...] likely that the CSF assays sent by [facility] after September 10, 2023 lumbar puncture [...] find: Ophthalmology note, CSF results sent after [facility] Follow up after mrossen Not [...] likely that the CSF assays sent by [facility] after September 10, 2023 lumbar puncture [...] cervical spine without contrast February 13, 2024 [facility] radiology: Suboptimal evaluation secondary to motion. Within this constraint: The cervical spinal cord is normal in signal intensity. There is no high-grade central spinal canal stenosis. Up to moderate bilateral neuroforaminal stenosis at C4-5. MRV brain with and without IV contrast, [facility], compared to brain MRI December 17, 2018 and MR a head October 01, 2023 [facility]: No cerebral venous thrombosis, unremarkable study more generally. MRA head without contrast [facility] October 02, 2023: Normal. [id number] clear, colorless, WBC = 0, RBC = 12/8 [2 #4 presumably], glucose 106, total protein 25.1 serum: September 10 2023 glucose 210 test negative Lumbar puncture note [facility], September 10, 2023, for chief complaint [...] Jardiance, Lantus, ondansetron, rizatriptan PLAN [facility] March 24, 2024 She wants to think about whether she wants to continue working with me. She will call, and a week she thinks, if she does, and we agree that at that point I would look at [facility] interventional radiology and have her follow-up [...] By Organization Details Last Modified Time 01/27/2024 60457 Discussion acros s issues of diagnoses and management and same day associated chart review and management greater than 50% greater than 60 minutes [email or web address] Not available 01/27/2024 14:30:31 03/24/2024 48307 PREVIOUS DISCUSSION >>>>>>>>January 27, 2024 initial neurology [...] ast No observ ation record ed. [email or web address] [facility] [address] [place], [address], 03/25/2024 16:03:10 Result Notes None recorded. Procedures Surgical History Date Name Laterality Status Provider Name and Address Organization Details Recorded Time 03/24/2024 DATA REVIEW completed Ilya Mckeon MD [address] [place], [place] [address], [address], [facility] 03/24/2024 10:16:01 01/27/2024 DATA REVIEW completed Ilya Mckeon MD [address] [place], [place] [address], [address], [facility] 01/27/2024 14:11:59 Imaging Results Imaging Date Name Status LastModified by [facility] Details LastModified Time 07/06/2023 MRI, brain, [...] MRI, cervical spine, w/o contrast completed [email or web address] [facility] [address] [facility], [place], [address], 03/25/2024 16:03:10 Procedure Notes None recorded. Medical Equipment None Reported. Allergies Allergen ID Allergen Name Allergen Category Reaction Reaction Severity Criticality Documentation Date Start Date Code Code System Note Provider Name and Address Organization Details Recorded Time 3895 heparin medicatio n Not available Not available Not available 01/27/2024 5224 RxNorm Eli Vegas [facility] 13:24:25 Medications Name Sig Start Date Stop [...] Not Available Not Available No t Available [email or web address] Zeynep 3 Sensor device USE DIRECTED FOR DIABETES. CHANGE EVERY 14 DAYS active Not Available Not Available No t Available Vitals Date Recorded Body height Body mass index (BMI) Body weight Respiratory rate Provider Name and Address Organization Details Last Updated DateTime 01/27/2024 149.86 cm 46 kg/m2 469262.06 g 12 /min Eli Vegas [facility] 01/27/2024 13:24:17 Social History Question Answer Notes LastModified by Organizat ion Details LastModified Time Tobacco Smoking Status Never Smoker Eli haile [facility] 01/27/2024 13:26:01 What Is Your Level Of Alcohol Consumption? None Information not available 01/27/2024 What Is Your Level Of Caffeine Consumption? Moderate 1 Cup Daily Information not available 01/27/2024 What Is The Highest Grade Or Level Of School You Have Completed Or The Highest Degree You Have Received? [id number] Information not available 01/27/2024 Which Of Your [...] N Vitamin B12 deficiency N Heart Attack ([place]) N Spine Problems N Obstructive Sleep Apnea [...] SNOMED-CT Code Diagnosis ICD10 Code Diagnosis Note 46869 Ilya Mckeon MD [facility] [address] [place] [address] [place] [address] 01/27/2024 12:43:24 01/27/2024 15:32:53 Benign intracranial hypertension 71034497 G93.2 Migraine without aura 56 110040 G43.009 75393 Ilya Mckeon MD [facility] [address] [place] [address] [place] [address] 03/24/2024 09:45:33 03/24/2024 10:51:41 Benign intracranial hypertension 77701621 G93.2 Migraine without aura 56 630774 G43.009 Health Concerns Section Related Observation LastModified by Organization Detai ls LastModified Time None Recorded Concern Status LastModified by Organization Details LastModified Time None Recorded Advance Directives Directive None Recorded Payers Encounter Date Sequence Insurance Name Policy Number Policy Cowan Covered Member ID Cowan Member ID Guarantor Name 01/27/2024 1 [facility] [id number] Susan Escobedo [id number] Susan Escobedo 03/24/2024 1 [facility] [id number] Susan Escobedo [id number] Susan Escobedo Notes Date Note Type Note Provider Name and Address Organization Details Recorded Time 01/27/2024 text/html She presents for initial neurology consultation for assessment and management of June 26-2022, onset of persistent, dizziness, arm tingling, partially improved slurring, visual blurring, and on June 29 headache, which also persists, all preceded by 2000 23-day at the [facility].She is accompanied by her sister, Gracie.Before June 26, 2023, she rarely got headaches, at most three times a year, and always mild. The only tingling she has ever had has been below her right knee and her right leg since right-sided knee meniscus surgery. She has generally not had visual blurring or speech slurring or dizziness.On 2023 she spent the day at the [facility]. 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
== END 2024-11-24 13:32 | disposition home or self-care (01) ==
PROVIDERS: PCP Nurse Practitioner Family; Visit Provider Psychiatry & Neurology Neurology
DX: G43.709 Chronic migraine without aura, not intractable, without status migrainosus (principal)
CPT/HCPCS: 64615

== ENCOUNTER → 2024-11-24 12:57 | Outpatient (BNVA) | payer OTHER, SELFPAY | PROVIDERS: PCP Nurse Practitioner Family; Visit Provider Psychiatry & Neurology Neurology | DX: G43.709 Chronic migraine without aura, not intractable, without status migrainosus (principal) | CPT/HCPCS: 64615; 99211; J0585 ==

== ENCOUNTER 2024-12-01 09:03 | Outpatient (AMB) | payer OTHER, SELFPAY ==
[2024-12-01 09:34] VITALS: BMI 44.6
--- NOTE | 2024-12-01 09:34 | A.OFFVIS_ITS ---
VS Expanded 12/01/24 09:34 12/10/24 11:39 Height 4 ft 11 in 4 ft 11 in Weight 221 lb 221 lb BMI 44.6 44.6 Intake Visit Reasons: Type 2 DM Allergies Heparin Analogues [HEPARIN AGENTS] Allergy (Intermediate, Verified 11/20/24 09:03) HIVES, RASH, SEVERE BRUISING dulaglutide [From Trulicity] Allergy (Verified 11/20/24 09:03) Rash Nutrition Presentation Details: Pt presents for MNT for T2DM Pt reports typically having 2-3 meals/d, and snacks Typical meal intake B: Mims eggs/ham/potatoes , bread, coffee (coffee with eggs or banana b snacks: ritz/popcorn, string cheese, water /joe serge /milk 8:30 pm cereal honey nut cheerios, milk PA: ADL ETOH/SMoking- -- BS Monitoring Most Recent Diabetes Results: Microalb/Creat Ratio 11.6 ug/mg cr (<30) 11/12/24 Cholesterol 139 mg/dL (<200) 11/11/24 HDL Cholesterol 39 mg/dL (>40) L 11/11/24 Triglycerides 134 mg/dL (<150) 11/11/24 Creatinine 0.72 mg/dL (0.5-1.4) 11/11/24 Blood Urea Nitrogen 14 mg/dL (9-16) 11/11/24 Sodium 137 mmol/L (135-145) 11/11/24 Potassium 4.1 mmol/L (3.3-5.1) 11/11/24 Chloride 109 mmol/L (96-108) H 11/11/24 Carbon Dioxide 22 mmol/L (22-29) 11/11/24 Calcium 9.8 mg/dL (8.4-10.2) 11/11/24 AST 21 U/L (5-31) 11/11/24 ALT 36 U/L (0-31) H 11/11/24 Total Protein 7.7 g/dL (6.5-8.0) 11/11/24 Albumin 4.3 g/dL (3.5-5.0) 11/11/24 KGW-Vskutey-Zi.Jeor Equation Height: 4 ft 11 in Weight: 221 lb Resting Metabolic Rate: 1560.58 Calculated Activity Level: Sedentary Calories Needed to Maintain Weight: 1872.70 Diagnosis Nutrition problem #1: excessive energy intake As related to (etiology) #1: diagnosis As evidenced by (sign/symptom) #1: abnormal lab values (A1c at 8.1% 10/2024) and food recall [facility] Medical History Asthma Sleep apnea Hypertension IBS (irritable bowel syndrome) DVT (deep venous thrombosis) COVID-19 Diabetes Surgical History [place] teeth extracted Hx of carpal tunnel repair Hx of tonsillectomy Hx of knee surgery Family History Maternal Grandfather Substance abuse Heart attack Maternal Grandmother Stomach cancer Father Diabetes Asthma Mother Asthma Social History Household Members: Family Housing: House Do you presently have visiting nurse or other home services: No 75 years or older and lives alone: No Alcohol intake: never Patient Tobacco Use Status: Never used Tobacco e-Cigarette/Vaping Use: Never Used Advance Directives Date on File: 06/29/22 service: No Current occupational status: employed Cognitive needs: Yes Hearing needs: Yes Vision needs: Yes (wear glasses) Assessment & Plan Assessment & Plan (1) Diabetes mellitus type 2 with complications: Code(s): E11.8 - Type 2 diabetes mellitus with unspecified complications Category: Medical Plan: Wt: 100 Kg ( 12/15 ) Est kcal needs as per MSJ: 1800 (40% carb, 30% protein/fat) Est fluid needs as per 25-30 ml/d: 3000 Est prot per day as per 1 g/kg bw: 100 Recommend fiber intake : 8-10 g per day and gradually increase to 25-28 g per day for women and 35-38 g for men or as tolerated Recommend sodium intake per day : less than 2300 mg Educated patient on: ( R = reviewed V = verbalizes understanding N/R = needs review N/A = not applicable * Food sources of carbohydrate, adequate serving sizes and its role in various health conditions: R * Differences between complex carbohydrates a simple carbohydrates, role of fiber in diet: R * Lean protein sources of foods: R * Differences between types of fats and role in diet (mono on saturated fat fatty acids, saturated fatty acids, trans fats): R * Food sources of sodium in salt and healthy modifications for heart health in kidney health: R V R/V * Vitamins and minerals: R V N/R * Healthy plate method concept: R V N/R * Physical activity: Benefits a precaution: R V N/R * Hypoglycemia protocol (rule of 15): R * Dietary prevention of Hyperglycemia: R Patient Instructions: Reduce on total carb per meal to 45-60 g following healthy plate method Reduce snack to 0-20 g carb, limit 2 snacks/day keep hydrated by having water with meals/snack/in between Coding Level of Care Code Nutr Indiv Intake (49373) Diagnoses Diabetes mellitus type 2 with complications E11.8 Time Spent (min) 30
--- OUTSIDE RECORDS SUMMARY | 2024-12-01 09:53 | XMS_ITS ---
Author Organization [facility], [facility] Address [address], [place] [id number] Care Team Providers Care Tear Down Matcher Name Role Phone CELESTINA FERNANDEZ Primary Care Provider [phone] JAZMYNE LINDO Unavailable [phone] REASON FOR VISIT New Refill Request Encounters Encounter Location Date Provider Diagnosis [facility], [address] [id number] 05/20/2024 JAZMYNE LINDO PLAN OF TREATMENT No Information Progress Notes * BAYRON LAZARODOB: [birth year] (43 yo F)Acc No.[id number]:05/20/2024 Patient:??BAYRON LAZARO :1980?Age:43 Y?Sex:Fe male Phone: Address:[address] [place] [address] * true * Date:??
--- OUTSIDE RECORDS SUMMARY | 2024-12-01 09:53 | XMS_ITS | Data Portability ---
Author Organization [facility] [employer] Address [address] [place] [address] [place] [address] Care Team Providers Care Decal Decorator Name Role Phone JAZMYNE LINDO Referring Provider [phone] JAZMYNE LINDO Primary Care Provider Assessment Encounter [...] likely that the CSF assays sent by [facility] after September 10, 2023 lumbar puncture [...] find: Ophthalmology note, CSF results sent after [facility] Follow up after mrossen Not [...] likely that the CSF assays sent by [facility] after September 10, 2023 lumbar puncture [...] cervical spine without contrast February 13, 2024 [facility] radiology: Suboptimal evaluation secondary to motion. Within this constraint: The cervical spinal cord is normal in signal intensity. There is no high-grade central spinal canal stenosis. Up to moderate bilateral neuroforaminal stenosis at C4-5. MRV brain with and without IV contrast, [facility], compared to brain MRI December 17, 2018 and MR a head October 01, 2023 [facility]: No cerebral venous thrombosis, unremarkable study more generally. MRA head without contrast [facility] October 02, 2023: Normal. CSFNov2022 clear, colorless, WBC = 0, RBC = 12/8 [2 #4 presumably], glucose 106, total protein 25.1 serum: September 10 2023 glucose 210 test negative Lumbar puncture note [facility], September 10, 2023, for chief complaint [...] Jardiance, Lantus, ondansetron, rizatriptan PLAN [facility] March [facility], 2024 She wants to think about whether she wants to continue working with me. She will call, and a week she thinks, if she does, and we agree that at that point I would look at [facility] interventional radiology and have her follow-up [...] By Organization Details Last Modified Time 01/27/2024 54229 Discussion acros s issues of diagnoses and management and same day associated chart review and management greater than 50% greater than 60 minutes mrossen Not available 01/27/2024 14:30:31 03/24/2024 56205 PREVIOUS DISCUSSION >>>>>>>>January 27, 2024 initial neurology [...] ast No observ ation record ed. [email or web address] [facility] [address] [place], [address], 03/25/2024 16:03:10 Result Notes None recorded. Procedures Surgical History Date Name Laterality Status Provider Name and Address Organization Details Recorded Time 03/24/2024 DATA REVIEW completed Ilya Mckeon MD [address] [place], [place] [address], [address], [facility] 03/24/2024 10:16:01 01/27/2024 DATA REVIEW completed Ilya Mckeon MD [address] [place], [place] [address], [address], [facility] 01/27/2024 14:11:59 Imaging Results Imaging Date Name Status LastModified by Organiz [facility] Details LastModified Time 07/06/2023 MRI, brain, [...] MRI, cervical spine, w/o contrast completed [email or web address] [facility] [address] [facility], [place], [address], 03/25/2024 16:03:10 Procedure Notes None recorded. Medical Equipment None Reported. Allergies Allergen ID Allergen Name Allergen Category Reaction Reaction Severity Criticality Documentation Date Start Date Code Code System Note Provider Name and Address Organization Details Recorded Time 3895 heparin medicatio n Not available Not available Not available 01/27/2024 5224 RxNorm Eli Vegas [facility] 13:24:25 Medications Name Sig Start Date [...] Not Available Not Available No t Available [employer] Zeynep 3 Sensor device USE DIRECTED FOR DIABETES. CHANGE EVERY 14 DAYS active Not Available Not Available No t Available Vitals Date Recorded Body height Body mass index (BMI) Body weight Respiratory rate Provider Name and Address Organization Details Last Updated DateTime 01/27/2024 149.86 cm 46 kg/m2 266565.06 g 12 /min Eli Vegas [facility] 01/27/2024 13:24:17 Social History Question Answer Notes LastModified by Organizat ion Details LastModified Time Tobacco Smoking Status Never Smoker Eli haile [facility] 01/27/2024 13:26:01 What Is Your Level Of Alcohol Consumption? None Information not available 01/27/2024 What Is Your Level Of Caffeine Consumption? Moderate 1 Cup Daily Information not available 01/27/2024 What Is The Highest Grade Or Level Of School You Have Completed Or The Highest Degree You Have Received? [id number] Information not available 01/27/2024 Which Of Your [...] B12 deficiency N PTSD N Heart Attack ([place]) N Diabetes Y Bleeding Disorder N Cerebral [...] SNOMED-CT Code Diagnosis ICD10 Code Diagnosis Note 16669 Ilya Mckeon MD [facility] [address] [place] [address] [place] [address] 01/27/2024 12:43:24 01/27/2024 15:32:53 Benign intracranial hypertension 73506607 G93.2 Migraine without aura 56 298616 G43.009 33567 Ilya Mckeon MD [facility] [address] [place] [address] [place] [address] 03/24/2024 09:45:33 03/24/2024 10:51:41 Benign intracranial hypertension 56339541 G93.2 Migraine without aura 56 896157 G43.009 Health Concerns Section Related Observation LastModified by Organization Detai ls LastModified Time None Recorded Concern Status LastModified by Organization Details LastModified Time None Recorded Advance Directives Directive None Recorded Payers Encounter Date Sequence Insurance Name Policy Number Policy Cowan Covered Member ID Cowan Member ID Guarantor Name 01/27/[address] [facility] [id number] Susan Escobedo [id number] Susan Escobedo 03/24/[address] [facility] [id number] Susan Escobedo [id number] Susan Escobedo Notes Date Note Type Note Provider Name and Address Organization Details Recorded Time 01/27/2024 text/html She presents for initial neurology consultation for assessment and management of June 26-2022, onset of persistent, dizziness, arm tingling, partially improved slurring, visual blurring, and on June 29 headache, which also persists, all preceded by 2000 23-day at the [place].She is accompanied by her sister, Gracie.Before June 26, 2023, she rarely got headaches, at most three times a year, and always mild. The only tingling she has ever had has been below her right knee and her right leg since right-sided knee meniscus surgery. She has generally not had visual blurring or speech slurring or dizziness.On 2023 she spent the day at the [place]. 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
--- OUTSIDE RECORDS SUMMARY | 2024-12-01 09:53 | XMS_ITS ---
Author Organization [facility], [facility] Address [address] [place], [place] [address] Care Team Providers Care Service Unit Operator Oil Well Name Role Phone CELESTINA FERNANDEZ Primary Care Provider [phone] JAZMYNE LINDO [phone] REASON FOR VISIT Refills Encounters Encounter Location Date Provider Diagnosis [facility], [address] [id number] 05/01/2024 JAZMYNE LINDO PLAN OF TREATMENT No Information Progress Notes * BAYRON LAZARODOB: [birth year] (43 yo F)Acc No.[id number]:05/01/2024 Patient:??BAYRON LAZARO :1980?Age:43 Y?Sex:Fe male Phone: Address:[address] [place] [id number] * true * Date:??
--- OUTSIDE RECORDS SUMMARY | 2024-12-01 09:53 | XMS_ITS | Clinical Summary ---
Author Organization [facility] it[facility] Address [address] [place] [address] Care Team Providers Care Director Of Supply Chain Name Role Phone Nicola Spears MD Primary Care Provider [phone] Surgical History Surgery Date Site/Laterality Comments CARPAL TUNNEL RELEASE PROCEDURE: NM NEUROPLASTY &/TRANSPOS MEDIAN NRV CARPAL TUNNE; COMMENT: bilateral TONSILLECTOMY PROCEDURE: HISTORICAL TONSILLECTOMY COLONOSCOPY 05/01/2018 PROCEDURE: OUTSIDE COLONOSCOPY; COMMENT: diminutive tubular adenoma polyp. random colonic bx normal. KNEE ARTHROSCOPY W/ MENISCAL REPAIR 12/11/2019 PROCEDURE: NM ARTHROSCOPY KNEE W/MENISCUS RPR MEDIAL/LATERAL; COMMENT: root repair; [facility] Medical History Medical History Date Comments Chiari [...] obesity with BMI o f 45.0-49.9, adult ([facility]) Tubular adenoma of colon 05/15/2018 DX:Tubu [...] drink = 0.6 oz pur e alcohol) Comments Unknown Sex and Gender Information Value Date Recorded Sex Assigned at Not on file Legal Sex Female 11:04 PM EST Gender Identity Not on file Sexual Orientation Not on file Obstetrics History Plan of Treatment Health Maintenance Due Date Last Done Comments Breast Cancer Screening 1980 Diabetes: Annual GFR (Glomer ular Filtration Rate) 1980 Diabetes: Annual Foot Exam 1990 Diabetes: Annual Retina Eye Exam 1990 Hepatitis B Vaccines (1 of 3 - 19+ 3-dose series) 1999 Pneumococcal Vaccine: Pediat rics (0 to 5 Years) and At-Risk Patients (6 to 64 Years) (1 of 2 - PCV) 1999 Cervical Cancer Screening: P ap Smear 2001 DTaP,Tdap,and Td Vaccines (2 - Td or Tdap) 05/27/2018 04/29/2018 Cholesterol Screening (Lipid Panel) 06/15/2024 Colorectal Cancer Screening: Colonoscopy 06/15/2024 Depression Screening 06/15/2024 Diabetes: Annual Urine Albumin-Creatinine Ratio (uACR) 06/15/2024 Diabetes: Blood Sugar Contro l Test (HGBA1C) 06/15/2024 HIV Screening 06/15/2024 Hepatitis C Screening 06/15/2024 Social Influencers of Health Screening 06/15/2024 COVID-19 Vaccine (1 - 4-2 5 season) 2024 Influenza Vaccine (#1) 2024 HIB Vaccines Aged Out No longer eligi [...] patient's age to complete this topic Meningococcal B Vacine Aged Out No lo nger eligible based on patient's age to complete this topic RSV Immunization Patients Un mackenzie 20 months Aged Out No longer eligible b ased on patient's age to complete this topic Varicella Vaccines Aged Out No longer eligible based on patient's age to complete this topic Care Teams Director Of Supply Chain Relationship Specialty Start Date End Date Nicola Spears MD [address] [place] [address] PCP - General Internal Medicine 10/27/21
[2024-12-10 11:39] VITALS: BMI 44.6
== END 2024-12-01 10:21 | disposition home or self-care (01) ==
PROVIDERS: PCP Nurse Practitioner Family; Visit Provider Dietitian, Registered
DX: E11.8 Type 2 diabetes mellitus with unspecified complications (principal)

== ENCOUNTER → 2024-12-01 09:03 | Outpatient (BNVA) | payer OTHER, SELFPAY | PROVIDERS: PCP Nurse Practitioner Family; Visit Provider Dietitian, Registered | DX: E11.8 Type 2 diabetes mellitus with unspecified complications (principal) | CPT/HCPCS: 97802 ==

== ENCOUNTER 2024-12-15 18:22 | Emergency (ER) | payer OTHER, SELFPAY ==
--- NOTE | 2024-12-15 18:41 | ED.GENADULT ---
HPI - General Adult General Chief complaint: Headache Stated complaint: Migraine/Left sided facial twitching Time Seen by Provider: 12/15/24 22:28 History of Present Illness ED Provider: Rena Downing PA-C HPI narrative: 44-year-old female with a history of migraines presents with a migraine headache. Related Data Home Medications ?Medication ?Instructions ?Recorded ?Confirmed cholecalciferol (vitamin D3) 1,250 1,250 mcg PO QWEEK 03/02/24 11/24/24 mcg (50,000 unit) capsule rimegepant 75 mg disintegrating 75 mg PO Q OTHER DAY 08/19/24 11/24/24 tablet (Nurtec ODT) thiamine HCl (vitamin B1) 100 mg 50 mg PO DAILY 08/19/24 11/24/24 tablet duloxetine 30 mg capsule,delayed mg PO DAILY 11/17/24 11/24/24 release magnesium L-threonate 48 mg mg PO 11/17/24 11/24/24 magnesium (667 mg) capsule propranolol 20 mg tablet mg PO 3XD 11/17/24 11/24/24 tirzepatide 12.5 mg/0.5 mL mg subcut 11/17/24 11/24/24 subcutaneous pen injector ([place]) Previous Rx's ?Medication ?Instructions ?Recorded riboflavin (vitamin B2) 400 mg 400 mg PO DAILY 30 days #30 tabs 08/13/23 tablet albuterol sulfate 90 mcg/actuation 2 puff inhalation QID PRN 08/24/24 aerosol inhaler (Ventolin HFA) shortness of breath or wheezing #6.7 grams blood-glucose sensor (FreeStyle #2 ea 08/24/24 Zeynep 3 Sensor device) fluticasone furoate 200 1 inh inhalation DAILY #1 ea 08/24/24 mcg-vilanterol 25 mcg/dose inhalation powder (Breo Ellipta) metoclopramide HCl 5 mg tablet 5 - 10 mg (1 - 2 x 5 mg) PO Q4-6H 10/07/24 nausea and vomiting 30 days #30 tabs onabotulinumtoxinA 200 unit 200 unit IM ONCE 12 weeks #1 ea 10/07/24 solution for injection (Botox) albuterol sulfate 2.5 mg/3 mL 2.5 mg (3 mL) inhalation Q4-6H PRN 10/29/24 (0.083 %) solution for nebulization shortness of breath or wheezing #180 mL blood-glucose sensor (Dexcom G7 #4 ea 11/17/24 Sensor device) canagliflozin 300 mg tablet 300 mg PO DAILY #90 tabs 11/17/24 (Invokana) insulin glargine 100 unit/mL (3 20 unit (0.2 mL) subcut BID #15 mL 11/17/24 mL) subcutaneous pen (Lantus Solostar U-100 Insulin) pen needle, diabetic 29 gauge x #100 ea 11/17/2410/22 (Ultra-Thin II Insulin Pen [place]) dupilumab 300 mg/2 mL subcutaneous 300 mg (2 mL) subcut Q2W #4 mL 12/01/24 pen injector (Dupixent) baclofen 10 mg tablet 20 mg (2 x 10 mg) PO BEDTIME 30 12/15/24 days #60 tabs indomethacin 25 mg capsule 25 mg PO TID stabbing headache 30 12/15/24 days #90 caps ondansetron 4 mg disintegrating 4 - 8 mg (1 - 2 x 4 mg) PO Q6-8H 12/15/24 tablet PRN nausea and vomiting 30 days #40 tabs Allergies Allergy/AdvReac Type Severity Reaction Status Date / Time Heparin Analogues Allergy Intermediate HIVES, Verified 12/15/24 18:45 [HEPARIN AGENTS] RASH, SEVERE BRUISING dulaglutide [From Trulicity] Allergy Rash Verified 12/15/24 18:45 PMFSH Past Medical History Medical History Asthma Sleep apnea Hypertension IBS (irritable bowel syndrome) DVT (deep venous thrombosis) COVID-19 Diabetes Surgical History [place] teeth extracted Hx of carpal tunnel repair Hx of tonsillectomy Hx of knee surgery Family History Family History Maternal Grandfather Substance abuse Heart attack Maternal Grandmother Stomach cancer Father Diabetes Asthma Mother Asthma Social History Social History Household Members: Family Housing: House Do you presently have visiting nurse or other home services: No Alcohol intake: never Patient Tobacco Use Status: Never used Tobacco e-Cigarette/Vaping Use: Never Used Advance Directives: Yes Advance Directives on File: Yes Advance Directives Date on File: 06/29/22 Do you have a plan to hurt others: No Plan service: No Current occupational status: employed Cognitive needs: Yes Hearing needs: Yes Vision needs: Yes (wear glasses) Physical Exam ED Vital Signs: Vital Signs - 24 hr 12/15/24 18:42 Temperature 98 F Pulse Rate 100 Respiratory Rate 18 Blood Pressure 153/83 H Pulse Oximetry 97 Oxygen Delivery Method Room Air BMI result Body Mass Index 44.4 Course Course Course Narrative: This is a rapid medical exam performed by Ishana Lozano NP: Additional HPI, ROS, PE not included below will be deferred to primary provider. Patient is a 44-year-old female with pmhx asthma, sleep apnea, HTN, IIH, IBS, DM, Chiari malformation with complaint of migraine for the past 4 days. Had botox injections for her migraines on 11/24. Vomited a few times this week. Also reports left sided facial twitching, no twitching noted in triage. Has taken Nurtex, baclofen, indomethacin which she states are prescribed for her migraines without relief. Medical Decision Making Medical Decision Making MDM Narrative: 44-year-old female with a history of migraines presents with a migraine headache. Going to assess the patient she was not on her exam room. We will check the emergency department and the bathrooms, she must of walked out without being seen. Discharge Plan Discharge Clinical Impression: Migraine Patient Disposition: Left Without Being Seen Prescriptions: No Action fluticasone furoate-vilanterol [Breo Ellipta] 200-25 mcg/dose blister with device 1 inh inhalation DAILY Qty: 1 6RF (DME) FreeStyle Zeynep 3 Sensor Device See Rx Instructions .ROUTE .MEDSUPPLY Qty: 2 0RF Rx Instructions: As directed albuterol sulfate [Ventolin HFA] 90 mcg/actuation HFA aerosol inhaler 2 puff inhalation QID PRN (Reason: shortness of breath or wheezing) Qty: 6.7 5RF albuterol sulfate 2.5 mg /3 mL (0.083 %) solution for nebulization 2.5 mg inhalation Q4-6H PRN (Reason: shortness of breath or wheezing) Qty: 180 6RF Dupixent Pen 300 mg/2 mL pen injector 300 mg subcut Q2W Qty: 4 12RF baclofen 10 mg tablet 20 mg PO BEDTIME 30 Days Qty: 60 3RF indomethacin 25 mg capsule 25 mg PO TID 30 Days Qty: 90 3RF Rx Instructions: administer with food or milk ondansetron 4 mg tablet,disintegrating 4 - 8 mg PO Q6-8H PRN (Reason: nausea and vomiting) 30 Days Qty: 40 3RF riboflavin (vitamin B2) 400 mg tablet 400 mg PO DAILY 30 Days Qty: 30 6RF cholecalciferol (vitamin D3) 1,250 mcg (50,000 unit) capsule 1,250 mcg PO QWEEK Botox 200 unit recon soln 200 unit IM ONCE 84 Days Qty: 1 3RF Rx Instructions: inject 155 units IM across forehead, scalp, and neck metoclopramide HCl 5 mg tablet 5 - 10 mg PO Q4-6H MDD 4 tabs 30 Days Qty: 30 3RF Nurtec ODT 75 mg tablet,disintegrating 75 mg PO Q OTHER DAY thiamine HCl (vitamin B1) 100 mg tablet 50 mg PO DAILY duloxetine 30 mg capsule,delayed release(DR/EC) PO DAILY propranolol 20 mg tablet PO 3XD Mounjaro 12.5 mg/0.5 mL pen injector subcut magnesium L-threonate 48 mg magnesium (667 mg) capsule PO (DME) Dexcom G7 Sensor Device See Rx Instructions .ROUTE .MEDSUPPLY Qty: 4 12RF Rx Instructions: As directed insulin glargine [Lantus Solostar U-100 Insulin] 100 unit/mL (3 mL) insulin pen 20 unit subcut BID Qty: 15 12RF (DME) pen needle, diabetic [Ultra-Thin II Ins Pen [place]] 29 gauge x 1/2 needle See Rx Instructions .Route Qty: 100 12RF Rx Instructions: As directed Invokana 300 mg tablet 300 mg PO DAILY Qty: 90 0RF Print Language: Bulgarian
[2024-12-15 18:42] VITALS: BP 153/83; PULSE 100; RESP 18; TEMP 36.6; O2SAT 97; BMI 44.4
--- NOTE | 2024-12-15 22:59 | PC.NURSE ---
this RN coming on to shift. Patient not found to be in room. PA aware and went in to room multiple times and patient not found to be there.
== END 2024-12-15 23:01 | disposition left against medical advice (07) ==
PROVIDERS: Emergency Provider Emergency Medicine Emergency Medical Services; PCP Nurse Practitioner Family
DX: G43.909 Migraine, unspecified, not intractable, without status migrainosus (principal); Z79.899 Other long term (current) drug therapy
CPT/HCPCS: 99281; 99283

== ENCOUNTER 2025-01-04 13:11 | Outpatient (AMB) | payer OTHER, SELFPAY ==
--- NOTE | 2025-01-04 13:14 | MHC.OFFVIS ---
Vital Signs 01/04/25 13:15 Height 4 ft 11 in Weight 222 lb BMI 44.8 BP 143/71 H Blood Pressure Location Lt radial Position Sitting Respiration 6 L Pulse 93 Pulse Source Pulse Oximeter Pulse Oximetry (%) 98 Oxygen Delivery Method Room Air Intake Visit Reasons: Cervicalgia Preschool Adviser Required: No Allergies Heparin Analogues [HEPARIN AGENTS] Allergy (Intermediate, Verified 01/22/25 14:50) HIVES, RASH, SEVERE BRUISING dulaglutide [From Trulicity] Allergy (Verified 01/22/25 14:50) Rash Medication List - Last Reconciled 01/04/25 by Makayla Gautam LPN acetazolamide ER 500 mg PO DAILY albuterol sulfate 90 mcg/actuation (Ventolin HFA) 2 puffs inhalation QID PRN albuterol sulfate 2.5 mg (3 mL) inhalation Q4-6H PRN baclofen 20 mg (2 x 10 mg) PO BEDTIME 30 days blood-glucose sensor (Rated PeopleStyle Zeynep 3 Sensor device) As directed blood-glucose sensor (PerceptiMed G7 Sensor device) As directed canagliflozin (Invokana) 300 mg PO DAILY cholecalciferol (vitamin D3) 1,250 mcg PO QWEEK clonidine HCl 0.1 mg PO BID duloxetine mg PO DAILY dupilumab (Dupixent) 300 mg (2 mL) subcut Q2W fluticasone furoate-vilanterol 200-25 mcg/dose (Breo Ellipta) 1 inh inhalation DAILY indomethacin 25 mg PO TID 30 days insulin glargine (Lantus Solostar U-100 Insulin) 20 units (0.2 mL) subcut BID magnesium L-threonate mg PO metoclopramide HCl 5 - 10 mg (1 - 2 x 5 mg) PO Q4-6H 30 days MDD 4 tabs onabotulinumtoxinA (Botox) 200 units IM ONCE 12 weeks ondansetron 4 - 8 mg (1 - 2 x 4 mg) PO Q6-8H PRN 30 days pen needle, diabetic (Ultra-Thin II Insulin Pen [place]) As directed propranolol mg PO 3XD riboflavin (vitamin B2) 400 mg PO DAILY 30 days rimegepant (Nurtec ODT) 75 mg PO Q OTHER DAY sertraline 25 mg PO DAILY thiamine HCl (vitamin B1) 50 mg PO DAILY tirzepatide (Mounjaro) 12.5 mg (0.5 mL) subcut QWEEK HPI HPI Cervicalgia: Details: History of Present Illness The patient is a 44-year-old female presenting with chronic pain management issues, particularly myofascial pain syndrome and occipital neuralgia. She last had bilateral occipital nerve blocks in February 2024, which did not provide lasting relief. Since then, she reports her symptoms being the same or worsened. She began Botox therapy for headache management in October, with no significant impact after two months. The patient notes that her primary pain is neck-related, worsened by head movements, suggesting cervical issues. Despite trials of multiple medications such as Nurtec and sertraline and PT, she received minimal relief. She reports anxiety issues and seeks effective treatment due to significant daily life impacts. Pain Description - Pain onset: Chronic with worsening over one year. - Quality: Described severe pain in neck, radiating to back of head and temples. - Primary location: Back of head, down neck into facial areas, especially temples. - Radiation: Toward the temples and face. - Exacerbating factors: Head movement, particularly turning. - Relieving factors: Limited relief from needling; Nurtec helps facial pain, not occipital or neck pain. - Functional impact: Significant impairment in daily activities, noted during extreme neck movements. - Additional treatments: Botox, physical therapy; prior treatments ineffective for long-term pain relief. Physical Exam - Appears afebrile. - Alert and oriented. - Mood and affect appropriate. - Follows and participates in conversation appropriately. - Respiratory effort is unlabored. - Able to transition from sit to stand unassisted. - Ambulates with bilaterally normal heel strike and toe off. - Able to stand and walk on toes and heels. Results Pain Management - Affect: Significant psychological distress; anxiety due to chronic pain impacting daily functioning. - Analgesia: Limited efficacy; Nurtec somewhat helps facial pain; Botox trial ongoing. - Adverse Effects: No significant adverse effects reported from medication or Botox. - Activities of Daily Living: Moderately to severely impaired; unable to perform usual activities like swimming due to pain. - Aberrant Drug Related Behaviors: None reported. [facility] Medical History Asthma Sleep apnea Hypertension IBS (irritable bowel syndrome) DVT (deep venous thrombosis) COVID-19 Diabetes Surgical History [place] teeth extracted Hx of carpal tunnel repair Hx of tonsillectomy Hx of knee surgery Family History Maternal Grandfather Substance abuse Heart attack Maternal Grandmother Stomach cancer Father Diabetes Asthma Mother Asthma Social History Household Members: Family Housing: House Do you presently have visiting nurse or other home services: No 75 years or older and lives alone: No Alcohol intake: never Patient Tobacco Use Status: Never used Tobacco e-Cigarette/Vaping Use: Never Used Advance Directives Date on File: 06/29/22 service: No Current occupational status: employed Cognitive needs: Yes Hearing needs: Yes Vision needs: Yes (wear glasses) Physical Exam Vital Signs: Last Vital Signs Pulse 93 01/04/25 13:15 Resp 6 L 01/04/25 13:15 BP 143/71 H 01/04/25 13:15 Pulse Ox 98 01/04/25 13:15 Oxygen Delivery Method Room Air 01/04/25 13:15 BMI result Body Mass Index 44.8 Assessment & Plan Assessment & Plan (1) Occipital neuralgia: Code(s): M54.81 - Occipital neuralgia Category: Medical (2) Cervicalgia: Comment: With muscle spasm Code(s): M54.2 - Cervicalgia Category: Medical Plan Plan A discussion with the patient regarding the trial of a third occipital nerve stimulator ensued. The procedure, known for providing 6 to 12 months of pain relief if successful, will be initiated on the right side, followed by the left side as needed. The patient consented, acknowledging risks including bleeding and potential allergic reactions to dressings. Temporary implantation will be performed under x-ray guidance. Insurance authorization is necessary, and alternate insurance options were mentioned if required. Patient was informed and verbally consented to the use of an ambient scribe for clinic note documentation during this visit. Discussion Notes During the visit, I discussed with the patient the plan for trialing a third occipital nerve stimulator, explaining it as a possible viable treatment option, given the failure of prior interventions. I thoroughly explained the procedural details, potential benefits providing pain relief, and the temporary nature of this device. Risks such as minor bleeding and dressing allergies were outlined, including a success rate of about 70%. We deliberated on insurance requirements and the potential need to switch providers if denied coverage. Discussions were thorough, aimed at managing expectations while equipping her with adequate information for consent and affirming her understanding of the conditions related to the procedure. Patient Instructions - Await confirmation for insurance approval for the third occipital nerve stimulator procedure. - Monitor for any worsening of symptoms, and seek medical attention if conditions deteriorate before the procedure. - Continue current medication regimens and report any new side effects. - Follow-up will be arranged upon insurance approval to discuss further steps. - Consider alternate activities that mitigate neck movement to reduce exacerbation of pain. Medications: New acetazolamide ER 500 mg PO DAILY sertraline 25 mg PO DAILY clonidine HCl 0.1 mg PO BID duloxetine mg PO DAILY Coding Level of Care Code Est Pt Level 4 (10021) Diagnoses Occipital neuralgia M54.81 Cervicalgia M54.2
[2025-01-04 13:15] VITALS: BP 143/71; PULSE 93; RESP 6; O2SAT 98; BMI 44.8
== END 2025-01-04 13:42 | disposition home or self-care (01) ==
LOC: HO.PMC 13:11
PROVIDERS: PCP Nurse Practitioner Family; Visit Provider Internal Medicine
DX: M54.81 Occipital neuralgia (principal); M54.2 Cervicalgia
CPT/HCPCS: 99214

== ENCOUNTER → 2025-01-04 13:11 | Outpatient (BNVA) | payer OTHER, SELFPAY | PROVIDERS: PCP Nurse Practitioner Family; Visit Provider Internal Medicine | DX: M54.2 Cervicalgia (principal); M54.81 Occipital neuralgia | CPT/HCPCS: 99212 ==

== ENCOUNTER 2025-01-06 10:06 | Outpatient (AMB) | payer OTHER, SELFPAY ==
--- NOTE | 2025-01-06 10:06 | MHC.OFFVIS ---
Intake Visit Reasons: discuss MBB Allergies Heparin Analogues [HEPARIN AGENTS] Allergy (Intermediate, Verified 01/22/25 14:50) HIVES, RASH, SEVERE BRUISING dulaglutide [From Trulicity] Allergy (Verified 01/22/25 14:50) Rash HPI HPI discuss MBB: Details: History of Present Illness The patient is a 44-year-old female presenting for follow-up concerning cervicogenic headaches. Initially, her request for peripheral nerve stimulation as a treatment option was denied by insurance. During the consultation, I explored an alternative approach involving cervical diagnostic medial branch blocks aimed at the C3-4-5 levels. This technique was discussed as a potential means to better target the patient's cervical headache pain. The conversation involved detailing the sequence of diagnostic injections, with prospects of subsequent cortisone injection therapy and/or radiofrequency ablation of the cervical meningeal branches. The patient was informed that initially, diagnostic blocks would be executed as the first phase to ascertain effectiveness in addressing her symptoms. She demonstrated understanding and eagerness to proceed with this approach. Pain Description - Occurrence: Ongoing cervical headache pain - Quality and character: Described as epidemic headaches linked to cervical regions - Location: Cervical spine region, specifically targeting the C3-4-5 vertebral levels - Current relief measures: Interest in using diagnostic medial branch blocks as an alternative pain management strategy - Potentially affected activities/functions: Headache symptoms affecting the quality of life and daily functioning Physical Exam - Cervical ROM and extension limited per report Pain Management - Affect: The patient is keen on finding an alternative therapeutic approach to manage her cervical headache pain. - Analgesia: Proposed: cervical diagnostic medial branch blocks with potential follow-up treatments using cortisone and/or radiofrequency. - Adverse Effects: Not discussed in the patient's narrative. - Activities of Daily Living: The patient's symptoms interfere with daily life, prompting consideration of various pain management approaches. - Aberrant Drug-Related Behaviors: Not discussed. PFSH Medical History Asthma Sleep apnea Hypertension IBS (irritable bowel syndrome) DVT (deep venous thrombosis) COVID-19 Diabetes Surgical History [place] teeth extracted Hx of carpal tunnel repair Hx of tonsillectomy Hx of knee surgery Family History Maternal Grandfather Substance abuse Heart attack Maternal Grandmother Stomach cancer Father Diabetes Asthma Mother Asthma Social History Household Members: Family Housing: House Do you presently have visiting nurse or other home services: No 75 years or older and lives alone: No Alcohol intake: never Patient Tobacco Use Status: Never used Tobacco e-Cigarette/Vaping Use: Never Used Advance Directives Date on File: 06/29/22 service: No Current occupational status: employed Cognitive needs: Yes Hearing needs: Yes Vision needs: Yes (wear glasses) Telehealth Telehealth Telehealth Platform: [employer] Location of provider rendering services: practice address Location of patient: address on file Patient Identification confirmed using: Name, : Yes Telehealth method: video Patient verbally consented to treatment: Yes Patient verbally consented to billing insurance company: Yes Patient informed of any privacy concerns related to visit: Yes Minutes spent on Phone/Video with Pt.: 10 Assessment & Plan Assessment & Plan (1) Cervical spondylosis: Code(s): M47.812 - Spondylosis without myelopathy or radiculopathy, cervical region Category: Medical Plan Plan The treatment approach for cervicogenic headaches secondary to cervical spondylosis involves initiating diagnostic medial branch blocks at the C3-4-5 levels. If the diagnostic phase is successful, cortisone injection therapy and/or radiofrequency ablation will be contemplated as progressive treatments. The plan comprehensively considers the limitations imposed by insurance on peripheral nerve stimulation proposals, presenting these blocks as the inaugural step to intervention. We will begin the blocks on the left side and evaluate the outcomes. Patient was informed and verbally consented to the use of an ambient scribe for clinic note documentation during this visit. Discussion Notes During the consultation, I addressed the patient's cervicogenic headaches, proposing cervical diagnostic medial branch blocks as a feasible therapeutic alternative to manage her pain. I elaborated on the procedures involved, emphasizing this initial diagnostic phase's role in evaluating the efficacy of targeting specific cervical facets for her headaches. Detailed explanations were provided concerning potential follow-up therapies, including cortisone injections and radiofrequency ablation. The patient's consent was obtained to proceed, affirming understanding and willingness to start with these diagnostic interventions. We discussed the practicalities and anticipated outcomes, agreeing to schedule the initial left-sided block series. Patient Instructions - Proceed with scheduling the cervical diagnostic medial branch blocks at the C3-4-5 levels, beginning with the left side. - Continue to monitor headaches and report any significant changes in pain or symptoms. - Understand the diagnostic phase is the initial step; subsequent treatment options will be explored based on initial outcomes. - Contact our office if you experience any new symptoms or side effects. Coding Level of Care Code Tele Est Pt Level 3 (65831) Diagnoses Cervical spondylosis M47.812
== END 2025-01-06 10:07 | disposition home or self-care (01) ==
LOC: HO.PMC 10:06
PROVIDERS: PCP Nurse Practitioner Family; Visit Provider Internal Medicine
DX: M47.812 Spondylosis without myelopathy or radiculopathy, cervical region (principal)
CPT/HCPCS: 99213

== ENCOUNTER → 2025-01-06 10:06 | Outpatient (BNVA) | payer OTHER, SELFPAY | PROVIDERS: PCP Nurse Practitioner Family; Visit Provider Internal Medicine ==

== ENCOUNTER 2025-01-22 13:03 | Outpatient (AMB) | payer OTHER, SELFPAY ==
--- NOTE | 2025-01-22 13:08 | MHC.PC.OV ---
Intake Visit Reasons: referral for neurologist Intake Note: telehealth needs referrals Rate Setter Required: No Allergies Heparin Analogues [HEPARIN AGENTS] Allergy (Intermediate, Verified 01/22/25 14:50) HIVES, RASH, SEVERE BRUISING dulaglutide [From Trulicity] Allergy (Verified 01/22/25 14:50) Rash Medication List - Last Reconciled 01/22/25 by Madison Travis, STEWARD/STEWARDESS BANQUET- acetazolamide ER 500 mg PO DAILY albuterol sulfate 90 mcg/actuation (Ventolin HFA) 2 puffs inhalation QID PRN albuterol sulfate 2.5 mg (3 mL) inhalation Q4-6H PRN baclofen 20 mg (2 x 10 mg) PO BEDTIME 30 days blood-glucose sensor (Healthcare Interactive Zeynep 3 Sensor device) As directed blood-glucose sensor (CenturyLink G7 Sensor device) As directed canagliflozin (Invokana) 300 mg PO DAILY cholecalciferol (vitamin D3) 1,250 mcg PO QWEEK clonidine HCl 0.1 mg PO BID duloxetine mg PO DAILY dupilumab (Dupixent) 300 mg (2 mL) subcut Q2W fluticasone furoate-vilanterol 200-25 mcg/dose (Breo Ellipta) 1 inh inhalation DAILY indomethacin 25 mg PO TID 30 days insulin glargine (Lantus Solostar U-100 Insulin) 20 units (0.2 mL) subcut BID magnesium L-threonate mg PO metoclopramide HCl 5 - 10 mg (1 - 2 x 5 mg) PO Q4-6H 30 days MDD 4 tabs onabotulinumtoxinA (Botox) 200 units IM ONCE 12 weeks ondansetron 4 - 8 mg (1 - 2 x 4 mg) PO Q6-8H PRN 30 days pen needle, diabetic (Ultra-Thin II Insulin Pen [place]) As directed propranolol mg PO 3XD riboflavin (vitamin B2) 400 mg PO DAILY 30 days rimegepant (Nurtec ODT) 75 mg PO Q OTHER DAY sertraline 25 mg PO DAILY thiamine HCl (vitamin B1) 50 mg PO DAILY tirzepatide (Mounjaro) 12.5 mg (0.5 mL) subcut QWEEK Tobacco use date assessed: 01/22/25 Dental Screening Dental Screen Date: 01/22/25 Did you have a dental visit in the last 12 months?: Yes Did you have a dental problem in the last 6 months where you did not have access to dental care?: No Was dental information given to patient?: Patient has dentist HPI HPI Comments History of Present Illness Details 44 year old female with mild intermittent asthma, DM 2, history of COVID-19, DVT, Idiopathic intracranial with chiari malformation HTN, migraine headaches, IBS, Sleep apnea, Vit D def Status post carpal tunnel repair, tonsillectomy, R knee surgery 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 Colon ? 09/2024 Mammo WNL ? PAP due for pap, has IUD placed 3 years ago. ? Tdap 2017, declined flu 08/21/24 [facility] exam negative for DM retinopathy bilat; Glaucoma suspect. Exam 10/2024 reports WNL this was done to eval blurred vision. Specialists: [place] wu appt December 2024 [facility] [place] [facility] Pulm Ophthalmology: 07/07/24 [facility], [facility] Eye negative for retinopathy, visit [facility] [place] [facility] appts in Nov Telehealth visit today, voice only: chronic neck pain and headaches. - Neck pain has been severe with the inability to move the neck freely, leading to the cessation of driving. Pain level often reaches 8-10 and has increased over the past two months. - Persistent headaches accompany neck pain, with minimal relief from various treatments tried. - Additional interventions have been attempted, including needling, cupping, and Botox, but these have yielded insufficient relief. - A procedure recommended by pain management is deemed experimental and not covered by insurance. (medial branch nerve blocks) - The patient reports significant emotional distress due to pain, impacting sleep, mental health, and ability to work, leading to initiation of therapy for depression. Denies SI/HI - Active w/ [facility]. Loves her [employer]. Appt scheduling has led to extended periods of time w/o appts; last appt with 11/2024 - New telehealth consult with chiari specialist in February, located in [facility] Discussion: Discussed with her options for treatment. First includes me reaching out to her neurology nurse practitioner directly to relay the above concerns and see if she is able to have a sooner appointment. The latter includes referral elsewhere. Discouraged referral elsewhere due to long wait times. The patient agrees to this. I have asked for her to reach out to me should she not have any resolution with the above. She is very grateful and thankful for her Neurology [employer] and looks forward to seeing her again. Assessment and Plan 1. Chronic neck pain: The patient's chronic neck pain is severe and progressively worsening despite current medical management and interventional efforts. Efforts are hindered due to scheduling issues and ineffective treatments, necessitating reevaluation of management strategies, including insurance options for recommended procedures. 2. Chronic headaches: These headaches are continuing without sufficient relief from current medical strategies. Enhancement of pain management plans to mitigate headache symptoms remains essential. 3. Chronic pain syndrome: Chronic pain syndrome severely impacts the patient's life. A comprehensive, perhaps interdisciplinary, approach to pain management is needed that prioritizes pain reduction and [id number]-[id number] improvements. Telehealth Attestation This visit was conducted via telehealth, and all documentation accurately reflects the information discussed during the virtual consultation. The patient has been explained that this is an interactive (audio/video) telehealth encounter and what that consists of. The patient understands and wishes to proceed. FunCaptcha platform was used. Total time spent caring for the patient today was 21 minutes. This includes time spent before the visit reviewing the chart, time spent during the visit, and time spent after the visit on documentation, reviewing laboratory results, diagnostic imaging, medications, performing a medically necessary evaluation, counseling on diagnoses, care coordination, ordering appropriate tests, ordering appropriate medications, review of tests performed by other providers, reporting test results with the patient, communication with other healthcare providers. [facility] Medical History Asthma Sleep apnea Hypertension IBS (irritable bowel syndrome) DVT (deep venous thrombosis) COVID-19 Diabetes Surgical History [place] teeth extracted Hx of carpal tunnel repair Hx of tonsillectomy Hx of knee surgery Family History Maternal Grandfather Substance abuse Heart attack Maternal Grandmother Stomach cancer Father Diabetes Asthma Mother Asthma Social History Household Members: Family Housing: House Do you presently have visiting nurse or other home services: No 75 years or older and lives alone: No Alcohol intake: never Patient Tobacco Use Status: Never used Tobacco e-Cigarette/Vaping Use: Never Used Advance Directives Date on File: 06/29/22 service: No Current occupational status: employed Cognitive needs: Yes Hearing needs: Yes Vision needs: Yes (wear glasses) Questionnaire Thrive Questionnaire Date Thrive assessed: 11/17/24 SILVERIO-7 AMB Questionnaire SILVERIO-7 Date SILVERIO - 7 assessed: 11/17/24 Source: Developed by Drs. Aj Becker, Roxanna Mahan, Mino Moore and colleagues, with an educational fabricio from [employer] Physical exam (Primary Care) Tobacco/Smoking Status: Tobacco use Status Tobacco use date assessed 01/22/25 01/22/25 13:09 Patient Tobacco Use Status Never used Tobacco 01/22/25 13:09 e-Cigarette/Vaping Use Never Used 01/22/25 13:09 Thrive Assessment: Date of Thrive Assessment Date Thrive assessed 11/17/24 01/22/25 13:09 Telehealth Telehealth Telehealth Platform: [facility] Location of provider rendering services: practice address Location of patient: address on file Patient Identification confirmed using: Name, : Yes Telehealth method: voice only Patient verbally consented to treatment: Yes Patient verbally consented to billing insurance company: Yes Patient informed of any privacy concerns related to visit: Yes Minutes spent on Phone/Video with Pt.: 15 Coding Level of Care Code Tele Est Pt Level 3 (98570) Complex EM visit Add On G2211 Diagnoses Cervicalgia M54.2 Chiari I malformation G93.5 Chronic migraine without aura without status migrainosus, not intractable G43.709 Status migrainosus presence: without status migrainosus Intractability: not intractable Assessment & Plan Assessment & Plan (1) Cervicalgia: Comment: With muscle spasm Code(s): M54.2 - Cervicalgia Category: Medical (2) Chiari I malformation: Code(s): G93.5 - Compression of brain Category: Medical (3) Chronic migraine without aura: Code(s): G43.709 - Chronic migraine without aura, not intractable, without status migrainosus Category: Medical Qualifiers: Status migrainosus presence: without status migrainosus Intractability: not intractable Qualified Code(s): G43.709 - Chronic migraine without aura, not intractable, without status migrainosus Plan ,
--- OUTSIDE RECORDS SUMMARY | 2025-01-22 14:55 | XMS_ITS | Encounter Summary ---
[facility] Address [address] [place] [address] Care Team Providers Care World Travel Counselor Name Role Phone Jonna Carvalho MD Primary Care Provider Nicola Soni MD Primary Care Provider Carl Chapa, Pcp Primary Care Provider Jayson jauregui Encounter Details Date Type Department Care Team Description 11/22/2018 Night Triage Doc Medical Records [address] [place] [id number] Abstract, Provider Social History Tobacco Use Types Packs/Day Years Used Date Smoking Tobacco: Never Smokeless Tobacco: Never Alcohol Use Standard Drinks/Week Comments No 0 (1 standard drink = 0.6 oz pur e alcohol) Physical Activity Answer Date Recorded On average, how many days pe r week do you engage in moderate to strenuous exercise (like walking fast, running, jogging, dancing, swimming, biking, or other activities that cause a light or heavy sweat)? 0 days 04/01/2020 On average, how many minutes do you engage in exercise at this level? 0 min 04/01/2020 Stress Answer Date Recorded Do you feel stress - tense, restless, nervous, or anxious, or unable to sleep at night because your mind is troubled all the time - these days? Not at all 04/01/2020 Sex Assigned at Date Recorded Not on file documented as of this encounter Plan of Treatment Not on file documented as of this encounter Visit Diagnoses Not on filedocumented in this encounter Care Teams World Travel Counselor Relationship Specialty Start Date End Date Jonna Carvalho MD PCP - General Internal Medicine 03/31/18 10/26/21 Nicola Spears MD PCP - General Internal Medicine 10/27/21 07/09/23 Community, Pcp PCP - General Internal Medicine 07/10/23 documented as of this encounter
--- OUTSIDE RECORDS SUMMARY | 2025-01-22 14:55 | XMS_ITS | Patient Health Record ---
Author Organization [facility] Address [address], [place] [address] Care Team Providers Care Engineering Technician Name Role Phone CELESTINA FERNANDEZ Primary Care Provider [phone] JAZMYNE LINDO Unavailable [phone] Tanya Faustin Unavailable [phone] ALLERGIES Allergen (clinical drug ingredient) Drug/Non Drug Allergy documented on EMR Reaction Allergy Type Onset Date Status heparin Heparin (uncoded) Rash Allergy Ac tive dulaglutide Trulicity Rash, GI upset Drug Allergy Active REASON FOR REFERRAL Reason Please refer pt to P [facility] Nutrition dx: uncontrolled diabetes, obesity (prior referred to Nitza Whitaker but please refer to [facility] instead) Diagnosis 1 Morbid obesity (E66. 01) Diagnosis 2 Type 2 diabetes nimesh itus with hyperglycemia (E11.65) [facility] Referring Provider First Name JAZMYNE Referring Provider Last Name BELGICA Referring Provider Speciality Preventive Medicine Referred Organization [facility] Referred Address [address], [id number], Referred Provider Specialty Nutrition General Notes MEMO FARMER 0 01/28/2024 12:16:46 PM >demographics, insurance info, referral and office note [facility] [phone] Referral Priority Routine Reason please refer pt to [facility]us for stat doppler ultrasound RLE for swelling, pain with history of multiple DVTs in that leg TY! Diagnosis 1 History of DVT (deep vein thrombosis) (Z86.718) Diagnosis 2 Localized swelling, mass and lump, right lower limb (R22.41) Referral Organization [facility] Referring Provider First Name JAZMYNE Referring Provider Last Name BELGICA Referring Provider Speciality Preventive Medicine Referred Organization [facility] Referred Address [address], [place],[id number] Referred Provider Specialty Diagnostic R adiology General Notes MEMO FARMER 0 04/14/2024 02:44:16 PM >order form, demographics, insurance info, order and office note faxed to Edwin [phone] Referral Priority Stat MEDICATIONS Medication SIG (Take, Route, Frequency, Duration) Notes Start Date End Date Status Lantus SoloStar 100 UNIT/ML 20 units Subcutaneous Twice a day Active Rizatriptan Benzoate Not-Taking Magnesium 400 MG as directed Orally Active Topiramate 50 MG 1 tablet Orally Twic e a day Not-Taking Riboflavin 400 MG 1 capsule Orally Onc e a day Active acetaZOLAMIDE 125 MG 1 tablet Orally Thr ee times a day Not-Taking Metoclopramide HCl 5 MG 1-2 tablets Oral ly Every 4-6 hrs Active Indomethacin 50 MG 1 capsule with food or milk Orally Three times a day Active Ondansetron 4 MG 1 tablet on the tong ue and allow to dissolve Orally Once a day Active Ubrelvy 100 MG 1 tablet may take second dose at least 2 hours after first dose as needed Orally Once a day Active Thiamine HCl 100 MG 1 tablet Orally Once a day Active Famotidine 20 MG 1 tablet at bedtime as needed Orally Once a day for 90 days 04/14/2024 Active Emgality 120 MG/ML as directed Subcutaneous Not-Taking Qulipta 60 MG 1 tablet Orally Once a day Active Amitriptyline HCl 50 MG 1 tablet at bedt paula Orally Once a day for 90 days 03/20/2024 Active Baclofen 10 MG 1 tablet as needed Orally Twice a day Active Dexcom G7 Sensor - change sensor every 10 days for 90 days 04/14/2024 Active Albuterol Sulfate HFA 108 (90 Base) MCG/ACT 2 puff as needed Inhalation every 4 hrs for 90 days Active SOCIAL HISTORY Tobacco Use: Social History Observation Description Date Details (start date - stop date) Never Smoker NA - NA Sex Assigned At : Social History Observation Description Sex Assigned At Unknown Household Question Answer Notes Number of adults in household: 4 Tobacco Use/Smoking Question Answer Notes Tobacco use: nonsmoker Section Notes: Lives in [place], [place] with 3 daughters. Lives [place] with 3 daughters. Lives [place] with 3 daughters. Lives [place] with 3 daughters. Lives in [place] with 3 daughters. Lives [place] with 3 daughters. 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.00) Active confirmed Chiari malforma tion (722649398) Problem Other abnormal findings in cerebrospinal fluid (R83.8) Active confirmed Cerebrospinal fluid examination abnormal (175447559) Problem Vitamin D deficiency (E55.9) Active confirmed Vitamin D deficiency (90633929) Problem Elevated high sensitivity C-reactive protein (R79.82) Active confirmed C-reactive protein abnormal (169924098) Problem Morbid obesity (E66.01) Active confirmed Morbid obesity (435092889) Problem Fatty liver (K76.0) Active confirmed Fatty liver (031484051) Problem Mild intermittent reactive airway disease without complication (J45.20) Active confirmed Mild intermitte nt asthma (963859274) Problem RACHAEL (obstructive sleep apnea) (G47.33) Active confirmed Obstructive sle ep apnea syndrome (63975466) Problem Low HDL (under 40) (E78.6) Active confirmed Lipoprotein deficiency disorder (482223368) Problem BMI 40.0-44.9, adult (Z68.41) Active confirmed Body mass ind ex 40+ - morbidly obese (729194726) Problem Mixed anxiety and depressive disorder (F41.8) Active confirmed Mixed anxie ty and depressive disorder (732257862) Problem GERD without esophagitis (K21.9) Active confirmed Gastroesophagea l reflux disease (157255042) Problem History of DVT (deep vein thrombosis) (Z86.718) Active confirmed History of DVT (deep vein thrombosis) (747331083) Problem Insulin resistance syndrome (E88.810) Active confirmed Insulin resista nce syndrome (368042629) Problem Elevated sed rate (R70.0) Active confirmed Erythrocyte sedimentation rate raised (996918494) VITAL SIGNS Heart Rate 86 /min 03/20/2024 Height-cm 149.86 cm 04/22/2024 Oximetry 98 % 03/20/2024 Blood pressure diastolic 82 mm Hg 03/20/2024 Weight-kg 101.88 kg 03/20/2024 Height 59 in 04/22/2024 Blood pressure systolic 148 mm Hg 03/20/2024 Weight 224.6 lbs 03/20/2024 BMI 45.36 kg/m2 03/20/2024 Encounters Encounter Location Date Provider Diagnosis [address] [id number] 04/10/2024 JAZMYNE LINDO [address] [id number] 04/30/2024 Tanya Faustin [address] [id number] 01/23/2024 JAZMYNE LINDO Morbid obesity E66.0 1 ; Type 2 diabetes mellitus with hyperglycemia E11.65 ; Insomnia, unspecified G47.00 and Arnold-Chiari syndrome without spina bifida or hydrocephalus Q07.[address] [id number] 03/20/2024 JAZMYNE LINDO Encounter for genera l adult medical examination with abnormal findings Z00.01 ; Encounter for screening for malignant neoplasm of colon Z12.11 ; Encounter for screening mammogram for malignant neoplasm of breast Z12.31 ; Essential (primary) hypertension I10 ; Morbid obesity E66.01 ; BMI 40.0-44.9, adult Z68.41 ; Mixed anxiety and depressive disorder F41.8 ; Mild intermittent reactive airway disease without complication J45.20 ; RACHAEL (obstructive sleep apnea) G47.33 ; Type 2 diabetes mellitus with hyperglycemia E11.65 ; Vitamin D deficiency E55.9 ; Elevated high sensitivity C-reactive protein R79.82 ; Insulin resistance syndrome E88.810 ; Elevated sed rate R70.0 ; Arnold-Chiari syndrome without spina bifida or hydrocephalus Q07.00 and Insomnia, unspecified G47.[address] [id number] 04/14/2024 JAZMYNE LINDO Type 2 diabetes mellitus with hyperglycemia E11.65 ; Insomnia, unspecified G47.00 ; Mixed anxiety and depressive disorder F41.8 ; Localized swelling, mass and lump, right lower limb R22.41 ; GERD without esophagitis K21.9 and Headache, chronic daily R51.[address] [id number] 04/22/2024 [facility] Cervical pain M54.[address] [place], [place] [id number] 04/20/[address] [id number] 05/01/[address] [id number] 05/20/[address] [id number] 05/27/2024 [facility] Encounter Date Diagnosis Assessment Notes Treatment Notes Treatment Clinical Notes Section Notes 01/23/2024 Type 2 diabetes mellitus with hyperglycemia (ICD-10 - E11.65) Pt to start her Mounjaro today Discussed may need to decrease insulin dosing by 4 units every other day if BS below 100 Refer to new equipment 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 professional Still IF Exercise as tolerated Had made major food choices 01/23/2024 Morbid obesity (ICD-10 - E66.01) New equipment 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 professional Exercise Mounjaro Will continue to monitor 03/20/2024 Encounter for general adult medical examination with abnormal findings (ICD-10 - Z00.01) General health maintenance reviewed 03/20/2024 Encounter for screening for malignant neoplasm of colon (ICD-10 - Z12.11) Pt calling her GI as she is due for her Q5 year colonoscopy 04/14/2024 Type 2 diabetes mellitus with hyperglycemia (ICD-10 - E11.65) Improving control of diabetes with equipment 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 professional, increasing mounjaro and weight loss To start swimming for exercise Will order Dexcom as pt states that Zeynep not covered Pt still has times of increased BS over 200 04/14/2024 Insomnia, unspecified (ICD-10 - G47.00) Improved sleep with increased dose of med Will refill To also start increasing exercise, address depression along with other nonpharmacologic approaches 04/22/2024 Cervical pain (ICD-10 - M54.2) Pt was on for about 20min Due to her physical habitus, did have some difficulty keeping head in proper position, sliding down with her head resting on side pads instead of flat causinng some local discomfort She did express relief in her cervical/scalene muscle tightness She would like to try it again, maybe lying totally supine would be better so she is able to stay in better position 04/14/2024 Mixed anxiety and depressive disorder (ICD-10 - F41.8) Pt agreed to reach out to DAVID Has QR code Improving now that she is starting to feel better 03/20/2024 Encounter for screening mammogram for malignant neoplasm of breast (ICD-10 - Z12.31) UTD 01/23/2024 Insomnia, unspecified (ICD-10 - G47.00) Improved quantity of sleep but not quality To call sleep specialist to reassess mask will continue to monitor 01/23/2024 Arnold-Chiari syndrome without spina bifida or hydrocephalus (ICD-10 - Q07.00) There is a question of no increased CSF per neuro surg in [place] with findings of MRI Does have significant muscle spasms To start the Baclofen again, nayeli before PT To see Dr Caban, new neurology this month 03/20/2024 Essential (primary) hypertension (ICD-10 - I10) Continue to monitor Weight loss may need to treat with lisinopril in near future as pt has diabetes as well Not staying with this office so discussed future treatment 04/14/2024 Localized swelling, mass and lump, right lower limb (ICD-10 - R22.41) Given her significant PMH of DVT x 3 will get stat US of RLE at [facility] 04/14/2024 GERD without esophagitis (ICD-10 - K21.9) Will order prn pepcid Has made significant dietary changes Smaller, more friquent meals Food avoidances, has prn zofran as well 03/20/2024 Morbid obesity (ICD-10 - E66.01) 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 equipment 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 professional; happy with her Exercise [place] Will continue to monitor 04/14/2024 Headache, chronic daily (ICD-10 - R51.9) Continues to work aggressively with neurology, PT to get to root cause of headaches question if she could benefit from cervical traction I am reaching out to rep to see if Chiari is a contraindication May trial it if able and order if successful 03/20/2024 BMI 40.0-44.9, adult (ICD-10 - Z68.41) 03/20/2024 Mixed anxiety and depressive disorder (ICD-10 - F41.8) Pt has had long histroy of anxiety and depression which has worsened with recent new acute illness Discussed DAVID for therapy as well as other nonpharmacologic means Will increase amitriptyline to help with both depression and sleep Denies any SI or HI 03/20/2024 Mild intermittent reactive airway disease without complication (ICD-10 - J45.20) Pt states controlled with prn use of albuterol but noted she has had multiple hospitalizations associated with asthma/concurrent illlnesses Discussed need for improved control if persists 03/20/2024 RACHAEL (obstructive sleep apnea) (ICD-10 - G47.33) Compliant with CPAP/BiPap mask Continue plan of care 03/20/2024 Type 2 diabetes mellitus with hyperglycemia (ICD-10 - E11.65) To increase mounjaro, poor control Has been on mulitple treatment regimens May need referral to endo if still poor control Happy with equipment 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 professional Still IF Exercise as tolerated 03/20/2024 Vitamin D deficiency (ICD-10 - E55.9) Continue high dose vitamin D When completed to take 2000iu daily Continue to monitor periodically 03/20/2024 Elevated high sensitivity C-reactive protein (ICD-10 - R79.82) Low inflammatory diet Increased exercise 03/20/2024 Insulin resistance syndrome (ICD-10 - E88.810) Insulin resistance and impaired fasting glucose present. We will focus on underlying causes so we might correct the problem at the source. We have reviewed diet/lifestyle options at length and to continue IF 03/20/2024 Elevated sed rate (ICD-10 - R70.0) Sed rate lower now Continue to monitor 03/20/2024 Arnold-Chiari syndrome without spina bifida or hydrocephalus (ICD-10 - Q07.00) There is a question of no increased CSF per neuro surg in [place] with findings of MRI Does have significant muscle spasms Seeing multiple neurologists as well No relief with trigger point injections 03/20/2024 Insomnia, unspecified (ICD-10 - G47.00) will increase amitriptyline To call sleep specialist to reassess mask will continue to monitor 01/23/2024 Other Total time spen t with patient 32 minutes which includes face to face visit, education and coordination of care. 04/14/2024 Other Total time spen t with patient 32 minutes which includes face to face visit, education and coordination of care. PLAN OF TREATMENT Pending Test Test Name Order Date Ultrasound : Doppler : Veins Leg Right 0 04/14/2024 Insurance Providers Payer Name Payer Address Payer Phone Subscriber Number Group Number Insured Name Patient Relationship to Insured Coverage Start Date Coverage End Date [facility] [address] [place] [address] [phone] [id number] BAYRON LAZARO Self - patient is the insured MEDICAL (GENERAL) HISTORY Medical History History ICD Code Chronic Asthma Blood Clots (post surgical x 3) Chicken Pox as a child Diabetes Type 2 Depression Headaches (chronic) Sleep Apnea (CPAP) Anxiety Irritable Bowel Syndrome Oriana Malformation 1 Surgical History Surgery Date(Month/Year) Carpal Tunnel - Bilateral Meniscus Root Repair - Rt Knee Tonsillectomy Crumpler Teeth Hospitalization History Reason Date(Month/Year) Head - concern for seizure/s troke - hospitalized for 3 days @ [facility] 07/2023 Asthma flare ups - several hospitalizati ons @ [facility]
--- OUTSIDE RECORDS SUMMARY | 2025-01-22 14:55 | XMS_ITS ---
Author Organization [facility] Address [address], [place] [id number] Care Team Providers Care Needle Maker Name Role Phone CELESTINA FERNANDEZ Primary Care Provider JAZMYNE LINDO [phone] REASON FOR VISIT Refills Encounters Encounter Location Date Provider Diagnosis [facility], [address] [id number] 05/01/2024 JAZMYNE LINDO PLAN OF TREATMENT No Information Progress Notes * BAYRON LAZARODOB: [birth year] (43 yo F)Acc No.[id number]:05/01/2024 Patient:??BAYRON LAZARO :1980?Age:43 Y?Sex:Fe male Phone: Address:[address] [place] [address] * true * Date:??
--- OUTSIDE RECORDS SUMMARY | 2025-01-22 14:55 | XMS_ITS | Encounter Summary ---
Author Organization [facility] Address [address] [place] [address] Care Team Providers Care Hands Assembler Name Role Phone Jonna Carvalho MD Primary Care Provider Nicola Soni MD Primary Care Provider Carl Chapa, Pcp Primary Care Provider Jayson jauregui Encounter Details Date Type Department Care Team Description 03/08/2020 Orders Only Medical Records [address] [place] [address] Preeti Xiong DO Social History Tobacco Use Types Packs/Day Years [...] on file documented as of this encounter Procedures Procedure Name Priority Date/Time Associated Diagnosis Comments OUTSIDE LAB Routine 03/07/2020 documented in this encounter Results * OUTSIDE LAB (03/07/2020) Preeti Jeffalexisagatha Salas DO LAB documented in this encounter Visit Diagnoses Not on filedocumented in this encounter Care Teams Hands Assembler Relationship Specialty Start Date End Date Jonna Carvalho MD PCP - General Internal Medicine 03/31/18 10/26/21 Nicola Spears MD PCP - General Internal Medicine 10/27/21 07/09/23 [facility] PCP - General Internal Medicine 07/10/23 documented as of this encounter
--- OUTSIDE RECORDS SUMMARY | 2025-01-22 14:55 | XMS_ITS | Clinical Summary ---
Author Organization [facility] Address [address] [place] [address] Care Team Providers Care Chemist Internship Name Role Phone Nicola Spears MD Primary Care Provider [phone] Surgical History Surgery Date Site/Laterality Comments CARPAL TUNNEL RELEASE PROCEDURE: [place] NEUROPLASTY &/TRANSPOS MEDIAN NRV CARPAL TUNNE; COMMENT: bilateral TONSILLECTOMY PROCEDURE: HISTORICAL TONSILLECTOMY COLONOSCOPY 05/01/2018 PROCEDURE: OUTSIDE COLONOSCOPY; COMMENT: diminutive tubular adenoma polyp. random colonic bx normal. KNEE ARTHROSCOPY W/ MENISCAL REPAIR 12/11/2019 PROCEDURE: [place] ARTHROSCOPY KNEE W/MENISCUS RPR MEDIAL/LATERAL; COMMENT: root repair; [facility] Medical History Medical History Date Comments [...] obesity with BMI o f 45.0-49.9, adult ([facility]) Tubular adenoma of colon 05/15/2018 [...] age to complete this topic Care Teams Chemist Internship Relationship Specialty Start Date End Date Nicola Spears MD [address] [place] [address] PCP - General Internal Medicine 10/27/21
--- OUTSIDE RECORDS SUMMARY | 2025-01-22 14:56 | XMS_ITS | Clinical Summary ---
Author Organization [facility] Address [address] [place] [address] Care Team Providers Care X Ray Developing Machine Operator Name Role Phone Community, Pcp Primary Care Provider Unavailabl e Allergies Active Allergy Reactions Severity Noted Date Comments Heparin 04/05/2018 Skin bruising . Medications Medication Sig Dispensed Refills Start Date End Date Status Blood Glucose Monitoring Suppl (CONTOUR NEXT ONE) Kit USE DIRECTED. 0 06/13/2018 Active CONTOUR NEXT TEST strip Inject 1 Strip into the skin 2 times daily. 100 Each 5 12/31/2018 Active Continuous Blood Gluc Wave Guide Assembler (FREESTYLE MAUDE 14 DAY READER) Device 1 Device by Does not apply route as needed (Use to read sensor three times a day for diabetes.). 1 Device 0 02/23/2019 Active Continuous Blood Gluc Sensor (FREESTYLE MAUDE 14 DAY SENSOR) [facility] [place] to check blood sugars. Apply to the back of the upper arm every 14 days. 2 Each 6 03/10/2019 Active Blood Glucose Monitoring Suppl (CONTOUR NEXT ONE) Kit 1 Kit by Does not apply route 2 times daily. 1 Kit 0 07/21/2019 Active MICROLET LANCETS [facility] USE TO TEST TWICE DAILY 200 Each 0 03/28/2020 Active fluticasone-salmeter ol (WIXELA INHUB) 250-50 MCG/DOSE diskus inhalerIndications:C ellulitis and abscess of trunk,Moderate persistent asthma with acute exacerbation,Morbid obesity with BMI of 45.0-49.9, adult (HCC) Inhale 1 Puff into the lungs 2 times daily. 1 Inhaler 4 03/30/2020 Active clotrimazole-betamet hasone (LOTRISONE) creamIndications:Vag inal yeast infection Apply to area sparingly twice a day for up to two weeks 30 g 0 04/02/2020 Active metformin (GLUCOPHAGE-XR) 750 MG 24 hr tabletIndications:Ty pe 2 diabetes mellitus without complication, without long-term current use of insulin (HCC),Bunion of great toe of right foot Take 1 Tab by mouth 2 times daily. 60 Tab 2 04/11/2020 Active ALBUTEROL SULFATE 108 (90 Base) MCG/ACT Aero Soln Inhale 2 Puffs into the lungs every 4 hours as needed for Cough or Wheezing. 8.5 g 1 07/12/2020 Active Liraglutide (VICTOZA) 18 MG/3ML Solution Pen-injector Inject 0.6 mg into the skin Daily before dinner. 3 mg 1 07/12/2020 Active glipiZIDE (GLUCOTROL) 10 MG 24 hr tablet TAKE 1 TABLET BY MOUTH TWICE DAILY WITH MEALS 60 Tab 0 01/09/2021 Active Active Problems Problem Noted Date COVID-19 virus detected 01/26/2021 Current moderate episode of major depressive disorder without prior episode 07/12/2020 S/P medial meniscus repair of right knee 05/13/2020 Overview: Nov 2019 DVT (deep venous thrombosis) 01/04/2020 Overview: Lower extremity, right. Diagnosed December 2019. Started on Eliquis Asthma, moderate persistent 01/05/2019 Overview: [place] [facility]ation Irritable bowel syndrome with diarrhea 1 Overview: Follows with GI s/p colonoscopy 04/2018 Tubular adenoma of colon 05/15/2018 DM (diabetes mellitus), type 2 with delfino l complications 04/29/2018 Chiari malformation type II 04/21/2018 Overview: Referred to neurology, diagnosed age 25, at baseline has symptoms of imbalance, headaches and slurring of words RACHAEL (obstructive sleep apnea) 04/21/2018 Overview: Not compliant with CPAP machine. 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 Mild intermittent asthma without complication 01/05/2019 Immunizations Name Administration Dates Next Due Tdap 04/29/2018 Family History Medical History Relation Name Comments No Known Problems Aunt No Known Problems Brother No Known Problems Father No medical conditions Diabetes Maternal Grandfather No Known Problems Maternal Grandmother Hypertension Mother Asthma No Known Problems Other No Known Problems Paternal Grandfather Diabetes Paternal Grandmother No Known Problems Sister No Known Problems Uncle Blindness Negative Hx CA Colon Negative Hx CA Ovarian Negative Hx Cancer of the Breast Negative Hx Cataract Negative Hx Cervical Cancer Negative Hx Glaucoma Negative Hx Macular Degeneration Negative Hx Strabismus Negative Hx Uterine Cancer Negative Hx Relation Name Status Comments Aunt Brother [...] Assigned at Date Recorded Not on file Last Filed Vital Signs Vital Sign Reading Time Taken Comments Blood Pressure 130/82 07/12/2020 9:30 AM EDT Pulse 74 07/12/2020 9:30 AM EDT Temperature 36.8 ??C (98.2 ??F) 07/12/2020 9:30 AM ED T Respiratory Rate 16 07/12/2020 9:30 AM EDT Oxygen Saturation 100% 05/20/2020 2:02 PM EDT Inhaled Oxygen Concentration - - Weight 111.2 kg (245 lb 1.6 oz) 07/12/2020 9:30 AM EDT Height 149.9 cm (4' 11 ) 07/12/2020 9:30 AM EDT Body Mass Index 49.5 07/12/2020 9:30 AM EDT Plan of Treatment Health Maintenance Due Date Last Done Comments Covid-19 Vaccine (#1) 1980 BASELINE HEALTH EXAM 40-64 2020 04/29/2018 MAMMOGRAM 2020 DIABETES: BLOOD SUGAR CONTRO L TEST (HGBA1C) 10/11/2020 07/12/2020, 04/01/2020, 04/01/2020, Additional history exists DIABETES/HEART DISEASE: CLARI AL CHOLESTEROL (LDL) 11/18/2020 11/18/2019, 12/26/2018, 08/14/2018 DIABETES: ANNUAL URINE PROTE IN TEST (MICROALBUMIN) 11/18/2020 11/18/2019, 12/26/2018, 05/30/2018 CERVICAL CANCER SCREENING 03/21/20212017 (External Completion) DIABETES: ANNUAL EYE EXAM 05/06/20212019, 05/06/2020 (External Completion), 08/08/2018 DIABETES: ANNUAL FOOT EXAM 05/13/202105/13, 05/13/2020 (Completed), 12/29/2018, Additional history exists COLON CANCER SCREENING 05/01/2023 05/01/2018 BMI CHECK/ADVISE 10/21/2024 07/12/2020, , 06/03/2020, Additional history exists INFLUENZA (Season Ended) 2025 020 (Refused), 11/18/2019 (Refused), 12/29/2018 (Refused) DTAP/TDAP/TD (2 - Td or Tdap) 04/29/2028 04/29/2018 PNEUMOCOCCAL VACCINE FOR HIG H RISK PATIENTS (#2) 2045 02/09/2019 (External Completion) Care Teams X Ray Developing Machine Operator Relationship Specialty Start Date End Date Community, Pcp PCP - General Internal Medicine 07/10/23
--- OUTSIDE RECORDS SUMMARY | 2025-01-22 14:56 | XMS_ITS | Data Portability ---
Author Organization [facility]ly [facility], [employer] Address [address] [place] [address] [place] [address] Care Team Providers Care Binding Dyer Name Role Phone JAZMYNE LINDO Referring Provider [phone] JAZMYNE LINDO Primary Care Provider Assessment Encounter [...] likely that the CSF assays sent by [facility] after September 10, 2023 lumbar puncture [...] find: Ophthalmology note, CSF results sent after [facility] Follow up after mrossen Not [...] likely that the CSF assays sent by [facility] after September 10, 2023 lumbar puncture [...] cervical spine without contrast February 13, 2024 [facility] radiology: Suboptimal evaluation secondary to motion. Within this constraint: The cervical spinal cord is normal in signal intensity. There is no high-grade central spinal canal stenosis. Up to moderate bilateral neuroforaminal stenosis at C4-5. MRV brain with and without IV contrast, [facility], compared to brain MRI December 17, 2018 and MR a head October 01, 2023 [facility]: No cerebral venous thrombosis, unremarkable study more generally. MRA head without contrast [facility] October 02, 2023: Normal. CSFNov2022 clear, colorless, WBC = 0, RBC = 12/8 [2 #4 presumably], glucose 106, total protein 25.1 serum: September 10 2023 glucose 210 test negative Lumbar puncture note [facility], September 10, 2023, for chief complaint [...] Jardiance, Lantus, ondansetron, rizatriptan PLAN Susan [facility]obedo [facility] March 24, 2024 She wants to think about whether she wants to continue working with me. She will call, and a week she thinks, if she does, and we agree that at that point I would look at [facility] interventional radiology and have her follow-up [...] By Organization Details Last Modified Time 01/27/2024 44131 Discussion acros s issues of diagnoses and management and same day associated chart review and management greater than 50% greater than 60 minutes [email or web address] Not available 01/27/2024 14:30:31 03/24/2024 [id number] PREVIOUS DISCUSSION >>>>>>>>January 27, 2024 initial neurology [...] ast No observ ation record ed. [email or web address] [facility] [address] [place], [address], 03/25/2024 16:03:10 Result Notes None recorded. Procedures Surgical History Date Name Laterality Status Provider Name and Address Organization Details Recorded Time 03/24/2024 DATA REVIEW completed Ilya Mckeon MD [address] [place], [place] [address], [address], [facility] 03/24/2024 10:16:01 01/27/2024 DATA REVIEW completed Ilya Mckeon MD [address] [place], [place] [address], [address], [facility] 01/27/2024 14:11:59 Imaging Results Imaging Date Name Status LastModified by [facility] Details LastModified Time 07/06/2023 MRI, brain, w/wo [...] MRI, cervical spine, w/o contrast completed [email or web address] [facility] [address] [facility], [place], [address], 03/25/2024 16:03:10 Procedure Notes None recorded. Medical Equipment None Reported. Allergies Allergen ID Allergen Name Allergen Category Reaction Reaction Severity Criticality Documentation Date Start Date Code Code System Note Provider Name and Address Organization Details Recorded Time 3895 heparin medicatio n Not available Not available Not available 01/27/2024 5224 RxNorm Eli Vegas [facility] 13:24:25 Medications Name Sig Start Date Stop [...] Not Available Not Available No t Available [employer] Zeynep 3 Sensor device USE DIRECTED FOR DIABETES. CHANGE EVERY 14 DAYS active Not Available Not Available No t Available Vitals Date Recorded Body height Body mass index (BMI) Body weight Respiratory rate Provider Name and Address Organization Details Last Updated DateTime 01/27/2024 149.86 cm 46 kg/m2 625174.06 g 12 /min Eli Vegas [facility] 01/27/2024 13:24:17 Social History Question Answer Notes LastModified by Organizat ion Details LastModified Time Tobacco Smoking Status Never Smoker Eli haile [facility] 01/27/2024 13:26:01 What Is Your Level Of Alcohol Consumption? None Information not available 01/27/2024 What Is Your Level Of Caffeine Consumption? Moderate 1 Cup Daily Information not available 01/27/2024 What Is The Highest Grade Or Level Of School You Have Completed Or The Highest Degree You Have Received? [id number] Information not available 01/27/2024 Which Of Your [...] B12 deficiency N PTSD N Heart Attack ([place]) N Diabetes Y Bleeding Disorder N Cerebral [...] SNOMED-CT Code Diagnosis ICD10 Code Diagnosis Note [id number] Ilya Mckeon MD [facility] [address] [place] [address] [place] [address] 01/27/2024 12:43:24 01/27/2024 15:32:53 Benign intracranial hypertension 51766758 G93.2 Migraine without aura 56 331202 G43.009 12061 Ilya Mckeon MD [facility] [address] [place] [address] [place] [address] 03/24/2024 09:45:33 03/24/2024 10:51:41 Benign intracranial hypertension 11920168 G93.2 Migraine without aura 56 596076 G43.009 Health Concerns Section Related Observation LastModified by Organization Detai ls LastModified Time None Recorded Concern Status LastModified by Organization Details LastModified Time None Recorded Advance Directives Directive None Recorded Payers Encounter Date Sequence Insurance Name Policy Number Policy Cowan Covered Member ID Cowan Member ID Guarantor Name 01/27/2024 1 [facility] [id number] Susan Escobedo [id number] Susan Escobedo 03/24/2024 1 [facility] [id number] Susan Escobedo [id number] Susan Escobedo Notes Date Note Type Note Provider Name and Address Organization Details Recorded Time 01/27/2024 text/html She presents for initial neurology consultation for assessment and management of June 26-2022, onset of persistent, dizziness, arm tingling, partially improved slurring, visual blurring, and on June 29 headache, which also persists, all preceded by 2000 23-day at the [place].She is accompanied by her sister, Gracie.Before June 26, 2023, she rarely got headaches, at most three times a year, and always mild. The only tingling she has ever had has been below her right knee and her right leg since right-sided knee meniscus surgery. She has generally not had visual blurring or speech slurring or dizziness.On 2023 she spent the day at the [place]. 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
--- OUTSIDE RECORDS SUMMARY | 2025-01-22 14:56 | XMS_ITS | Encounter Summary ---
Author Organization [facility] Address [address] [place] [address] Care Team Providers Care Data Manager Name Role Phone Jonna Carvalho MD Primary Care Provider Nicola Soni MD Primary Care Provider Carl Chapa, Pcp Primary Care Provider Jayson jauregui Encounter Details Date Type Department Care Team Description 01/24/2021 Pt. Non Urgent Medic al Question Adult Medicine [address] [address] Jonna Carvalho MD Social History Tobacco Use Types Packs/Day Years [...] on file documented as of this encounter Miscellaneous Notes * Telephone Encounter - Fatou Montero C.M.A. - 01/24/2021 11:46 AM EDTFrom: Susan Escobedo To: Jonna Carvalho MD Sent: 01/24/2021 11:44 AM EDT Subject: Covid Hi Dr Caravlho, Just wanted to inform you that I have tested positive for covid today. Susan documented in this encounter Plan of Treatment Not on file documented as of this encounter Visit Diagnoses Not on filedocumented in this encounter Care Teams Data Manager Relationship Specialty Start Date End Date Jonna Carvalho MD PCP - General Internal Medicine 03/31/18 10/26/21 Nicola Spears MD PCP - General Internal Medicine 10/27/21 07/09/23 [facility], Pcp PCP - General Internal Medicine 07/10/23 documented as of this encounter
--- OUTSIDE RECORDS SUMMARY | 2025-01-22 14:56 | XMS_ITS | Encounter Summary ---
Author Organization [facility] Address [address] [place] [address] Care Team Providers Care Furnace Tapper Name Role Phone Jonna Carvalho MD Primary Care Provider Nicola Soni MD Primary Care Provider Carl Chapa, Pcp Primary Care Provider Jayson jauregui Encounter Details Date Type Department Care Team Description 09/23/2019 Hospital Medical Records [address] [place] [address] Anthony Rodrigez MD Social History Tobacco Use Types Packs/Day [...] on filedocumented in this encounter Care Teams Furnace Tapper Relationship Specialty Start Date End Date Jonna Carvalho MD PCP - General Internal Medicine 03/31/18 10/26/21 Nicola Spears MD PCP - General Internal Medicine 10/27/21 07/09/23 [facility], Pcp PCP - General Internal Medicine 07/10/23 documented as of this encounter
--- OUTSIDE RECORDS SUMMARY | 2025-01-22 14:56 | XMS_ITS | Encounter Summary ---
Author Organization [facility] Address [address] [place] [address] Care Team Providers Care Glost Kiln Operator Name Role Phone Jonna Carvalho MD Primary Care Provider Nicola Soni MD Primary Care Provider Carl Chapa, Pcp Primary Care Provider Jayson jauregui Encounter Details Date Type Department Care Team Description 04/21/2018 Orders Only Adult Medicine [address] [address] Jonna Carvalho MD Social History Tobacco Use [...] on filedocumented in this encounter Care Teams Glost Kiln Operator Relationship Specialty Start Date End Date Jonna Carvalho MD PCP - General Internal Medicine 03/31/18 10/26/21 Nicola Spears MD PCP - General Internal Medicine 10/27/21 07/09/23 [facility], Pcp PCP - General Internal Medicine 07/10/23 documented as of this encounter
--- OUTSIDE RECORDS SUMMARY | 2025-01-22 14:56 | XMS_ITS ---
Author Organization [facility], [facility] Address [address] [place], [place] [id number] Care Team Providers Care Forming Fixer Name Role Phone CELESTINA FERNANDEZ Primary Care Provider JAZMYNE LINDO Unavailable [phone] REASON FOR VISIT New Refill Request Encounters Encounter Location Date Provider Diagnosis [facility], [address] [id number] 05/20/2024 JAZMYNE LINDO PLAN OF TREATMENT No Information Progress Notes * BAYRON LAZARODOB: [birth year] (43 yo F)Acc No.[id number]:05/20/2024 Patient:??BAYRON LAZARO :1980?Age:43 Y?Sex:Fe male Phone: Address:[address] [place] [address] * true * Date:??
--- OUTSIDE RECORDS SUMMARY | 2025-01-22 14:56 | XMS_ITS | Encounter Summary ---
Author Organization [facility] Address [address] [place] [address] Care Team Providers Care News Director Name Role Phone Nicola Spears MD Primary Care Provider Carl Chapa, Pcp Primary Care Provider Jayson e Reason for Visit * Reason Onset Date Comments hospital follow up 07/20/2022 Encounter Details Date Type Department Care Team Description 07/20/2022 Telephone Adult Medicine [address] [address] Kelle Metcalf PAAllisonC hospital follow up Social History Tobacco Use Types Packs/Day Years [...] encounter Miscellaneous Notes * Telephone Encounter - Alix Chua - 07/20/2022 3:18 PM EDT Called and left to return my call. * Telephone Encounter - Kelle Metcalf PA-C - 07/20/2022 8:15 AM EDT Please contact patient. [place] [facility] [place] asthma exacerbation. Patient hasnot been seen in medicine department since 07/12/2020. She is a known diabetic. Need to clarify PCP and get her set up with an appointment DANIELE for diabetes follow-up and hospital follow-up if she is still a [facility] patient. Thank you documented in this encounter Plan of Treatment Not on file documented as of this encounter Visit Diagnoses Not on filedocumented in this encounter Care Teams News Director Relationship Specialty Start Date End Date Nicola Spears MD PCP - General Internal Medicine 10/27/21 07/09/23 [facility], Pcp PCP - General Internal Medicine 07/10/23 documented as of this encounter
--- OUTSIDE RECORDS SUMMARY | 2025-01-22 14:56 | XMS_ITS | Encounter Summary ---
Author Organization [facility] Address [address] [place] [address] Care Team Providers Care Enterprise Architect Manager Name Role Phone Jonna Carvalho MD Primary Care Provider Nicola Soni MD Primary Care Provider Carl Chapa, Pcp Primary Care Provider [facility] Reason for Visit * Reason Onset Date Comments medication problems 07/12/2020 Encounter Details Date Type Department Care Team Description 07/12/2020 Telephone Adult Medicine [address] [address] Jonna Carvalho MD medication problems Social History Tobacco Use Types Packs/Day Years [...] Assigned at Date Recorded Not on file COVID-19 Exposure Response Date Recorded In the last month, have you been in contact with someone who was confirmed or suspected to have Coronavirus / COVID-19? No / Unsure 07/12/2020 9:10 AM EDT documented as of this encounter Miscellaneous Notes * Telephone Encounter - Ana Lilia Norris M.A. - 07/12/2020 11:20 AM EDT Please clarify directions * Telephone Encounter - Tory Vasquez - 07/12/2020 11:08 AM EDT Who is calling? A pharmacist: [facility]: [facility] Name of the medication Liraglutide (VICTOZA) 18 MG/3ML Solution Pen-injector What is the specific problem or interaction? Clarification on directions If the patient is having a problem with taking the med - how long has the problem been going on? N/A documented in this encounter Plan of Treatment Not on file documented as of this encounter Visit Diagnoses Not on filedocumented in this encounter Care Teams Enterprise Architect Manager Relationship Specialty Start Date End Date Jonna Carvalho MD PCP - General Internal Medicine 03/31/18 10/26/21 Nicola Spears MD PCP - General Internal Medicine 10/27/21 07/09/23 [facility], Pcp PCP - General Internal Medicine 07/10/23 documented as of this encounter
--- OUTSIDE RECORDS SUMMARY | 2025-01-22 14:56 | XMS_ITS ---
Author Organization [facility], [facility] Address [address] [place] [id number] Care Team Providers Care Paper Roller Name Role Phone CELESTINA FERNANDEZ Primary Care Provider [phone] JAZMYNE LINDO [phone] REASON FOR VISIT New Refill Request MEDICATIONS Medication SIG (Take, Route, Frequency, Duration) Notes Start Date End Date Status Albuterol Sulfate HFA 108 (90 Base) MCG/ACT 2 puff as needed Inhalation every 4 hrs for 90 days Active Encounters Encounter Location Date Provider Diagnosis [address] [id number] 05/27/2024 JAZMYNE LINDO PLAN OF TREATMENT Medication Medication Name Sig Start Date Stop Date Notes Albuterol Sulfate HFA 108 (9 0 Base) MCG/ACT 2 puff as needed Inhalation every 4 hrs for 90 days Progress Notes * BAYRON LAZARODOB: [birth year] (43 yo F)Acc No.[id number]:05/27/2024 Patient:??IVETH BAYRON :1980?Age:43 Y?Sex:Fe male Phone: Address:[address] [place] [address] * Refills?? Refill Albuterol Sulfate HFA Aerosol Solution, 108 (90 Base) MCG/ACT, Inhalation, 1, 2 puff as needed, every 4 hrs, 90 days, Refills=3 * true * Date:??
--- OUTSIDE RECORDS SUMMARY | 2025-01-22 14:56 | XMS_ITS | Encounter Summary ---
Author Organization [facility] Address [address] [place] [address] Care Team Providers Care Computer Trainer Name Role Phone Jonna Carvalho MD Primary Care Provider Nicola Soni MD Primary Care Provider Carl Chapa, Pcp Primary Care Provider Jayson jauregui Encounter Details Date Type Department Care Team Description 01/06/2020 Telephone Pulmonology - [place] [address] [place] [address] Alli Santacruz MD [address] [place] [address] Social History Tobacco Use Types Packs/Day Years [...] on filedocumented in this encounter Care Teams Computer Trainer Relationship Specialty Start Date End Date Jonna Carvalho MD PCP - General Internal Medicine 03/31/18 10/26/21 Nicola Spears MD PCP - General Internal Medicine 10/27/21 07/09/23 [facility], Pcp PCP - General Internal Medicine 07/10/23 documented as of this encounter
--- OUTSIDE RECORDS SUMMARY | 2025-01-22 14:56 | XMS_ITS | Encounter Summary ---
Author Organization [facility] Address [address] [place] [address] Care Team Providers Care Hospice Social Worker Name Role Phone Jonna Carvalho MD Primary Care Provider Nicola Soni MD Primary Care Provider Carl Chapa, Pcp Primary Care Provider Jayson jauregui Encounter Details Date Type Department Care Team Description 09/22/2019 Old Medical Records Medical Records [address] [place] [address] Abstract, Provider Social History Tobacco Use Types [...] on filedocumented in this encounter Care Teams Hospice Social Worker Relationship Specialty Start Date End Date Jonna Carvalho MD PCP - General Internal Medicine 03/31/18 10/26/21 Nicola Spears MD PCP - General Internal Medicine 10/27/21 07/09/23 [facility], Pcp PCP - General Internal Medicine 07/10/23 documented as of this encounter
--- OUTSIDE RECORDS SUMMARY | 2025-01-22 14:56 | XMS_ITS | Encounter Summary ---
Author Organization [facility] Address [address] [place] [address] Care Team Providers Care Aircraft Restorer Name Role Phone Jonna Carvalho MD Primary Care Provider Nicola Soni MD Primary Care Provider Carl Chapa, Pcp Primary Care Provider Jayson jauregui Encounter Details Date Type Department Care Team Description 01/06/2019 Editor Index Report Medical Records [address] [place], [place] [id number] [place] [address] Diabetes Education 300 [facility] [address] [place] [address] Social History Tobacco Use Types Packs/Day Years [...] on filedocumented in this encounter Care Teams Aircraft Restorer Relationship Specialty Start Date End Date Jonna Carvalho MD PCP - General Internal Medicine 03/31/18 10/26/21 Nicola Spears MD PCP - General Internal Medicine 10/27/21 07/09/23 [facility], Pcp PCP - General Internal Medicine 07/10/23 documented as of this encounter
--- OUTSIDE RECORDS SUMMARY | 2025-01-22 14:56 | XMS_ITS | Encounter Summary ---
Author Organization [facility] Address [address] [place] [address] Care Team Providers Care Afternoon Babysitter Name Role Phone Jonna Carvalho MD Primary Care Provider Nicola Soni MD Primary Care Provider Carl Chapa, Pcp Primary Care Provider [facility] Reason for Visit * Reason Onset Date Comments Prior Authorization 04/21/2018 Encounter Details Date Type Department Care Team Description 04/21/2018 Telephone Gastroenterology - [address] [address] Griffin Saucedo PA-C Prior Authorization Social History Tobacco Use Types Packs/Day Years [...] encounter Miscellaneous Notes * Telephone Encounter - Aga Viverosrar - 04/21/2018 11:23 AM EDT [facility] auth required 04/21/18 - 04/21/19 [id number] To be done at [facility] * Telephone Encounter - Renetta Winter - 04/21/2018 10:39 AM EDT Pre-auth needed Patient is scheduled for a colonoscopy on 05-01-18 Patients insurance: Payor: [facility] / Plan: PPO $20 [id number] / Product Type: PPO [id number] Appointment is with Ruby Rosales MD Code to process pre-auth for: [id number] Location of procedure: [facility] documented in this encounter Plan of Treatment Not on file documented as of this encounter Visit Diagnoses Not on filedocumented in this encounter Care Teams Afternoon Babysitter Relationship Specialty Start Date End Date Jonna Carvalho MD PCP - General Internal Medicine 03/31/18 10/26/21 Nicola Spears MD PCP - General Internal Medicine 10/27/21 07/09/23 [facility], Pcp PCP - General Internal Medicine 07/10/23 documented as of this encounter
--- OUTSIDE RECORDS SUMMARY | 2025-01-22 14:56 | XMS_ITS | Encounter Summary ---
Author Organization [facility] Address [address] [place] [address] Care Team Providers Care Alternative Energy Engineer Name Role Phone Jonna Carvalho MD Primary Care Provider Nicola Soni MD Primary Care Provider Carl Chapa, Pcp Primary Care Provider Jayson jauregui Encounter Details Date Type Department Care Team Description 09/23/2019 Old Medical Records Medical Records [address] [place] [address] Abstract, Provider Social History Tobacco Use Types [...] on filedocumented in this encounter Care Teams Alternative Energy Engineer Relationship Specialty Start Date End Date Jonna Carvalho MD PCP - General Internal Medicine 03/31/18 10/26/21 Nicola Spears MD PCP - General Internal Medicine 10/27/21 07/09/23 [facility], Pcp PCP - General Internal Medicine 07/10/23 documented as of this encounter
--- OUTSIDE RECORDS SUMMARY | 2025-01-22 14:56 | XMS_ITS | Encounter Summary ---
Author Organization [facility] Address [address] [place] [address] Care Team Providers Care Malter Operator Name Role Phone Jonna Carvalho MD Primary Care Provider Nicola Soni MD Primary Care Provider Carl Chapa, Pcp Primary Care Provider Jayson jauregui Encounter Details Date Type Department Care Team Description 08/25/2020 Telephone Adult Medicine [address] [address] Jonna Carvalho MD Social History Tobacco Use [...] or suspected to have Coronavirus / COVID-19? Unable to assess 08/23/2020 8:06 AM EST documented as of this encounter Plan of Treatment Not on file documented as of this encounter Visit Diagnoses Not on filedocumented in this encounter Care Teams Malter Operator Relationship Specialty Start Date End Date Jonna Carvalho MD PCP - General Internal Medicine 03/31/18 10/26/21 Nicola Spears MD PCP - General Internal Medicine 10/27/21 07/09/23 [facility] PCP - General Internal Medicine 07/10/23 documented as of this encounter
== END 2025-01-22 16:33 | disposition home or self-care (01) ==
LOC: HO.HMCFM 13:03
PROVIDERS: PCP Nurse Practitioner Family; Visit Provider Nurse Practitioner Family
DX: M54.2 Cervicalgia (principal); G93.5 Compression of brain; G43.709 Chronic migraine without aura, not intractable, without status migrainosus

== ENCOUNTER → 2025-01-22 13:03 | Outpatient (BNVA) | payer OTHER, SELFPAY | PROVIDERS: PCP Nurse Practitioner Family; Visit Provider Nurse Practitioner Family ==

== ENCOUNTER 2025-02-03 10:00 | Outpatient (REF) | payer OTHER, SELFPAY ==
--- NOTE | ~2025-02-03 | FL_ITS ---
EXAMINATION: Modified Barium Swallow CLINICAL INFORMATION: Dysphagia COMPARISON: None TECHNIQUE: Modified barium swallow was performed under lateral fluoroscopy with patient in standing position. Barium mixed with solids and liquids of different consistencies was administered by the speech pathologist. Examination was recorded in the fluoroscopy suite. FINDINGS: Persistent laryngeal penetration was identified on multiple liquid consistencies, without evidence of glottic or subglottic aspiration. No significant cricopharyngeal achalasia noted. FLUOROSCOPY TIME: 1 minute, 3 seconds Number of Spot Images: DOSE AREA PRODUCT: 714.2 uGy-m2 (microgray-meter squared) FL/FL Modified Barium Swallow IMPRESSION: Persistent laryngeal penetration on multiple liquid consistencies, without evidence of glottic or subglottic aspiration. Please refer to the speech therapy report for further detail. Electronically signed by: Chalino Yu MD 02/04/2025 08:03 AM EDT
[2025-02-03 11:20] LABS: Alanine Aminotransferase 43 U/L (0-31); Alkaline Phosphatase 74 U/L (39-117); Anion Gap 12 (12-20); Aspartate Amino Transferase 21 U/L (5-31); Bilirubin Total 0.7 mg/dL (0.0-1.0); Blood Urea Nitrogen 8 mg/dL (9-16); Calcium 9.3 mg/dL (8.4-10.2); Carbon Dioxide 25 mmol/L (22-29); Chloride 104 mmol/L (96-108); Estimated Glomerular Filt Rate > 60; Glucose Fasting 251 mg/dL (60-99); Potassium 4.3 mmol/L (3.3-5.1); Sodium 137 mmol/L (135-145); Total Protein 6.9 g/dL (6.5-8.0)
--- OUTSIDE RECORDS SUMMARY | 2025-02-03 11:30 | XMS_ITS | Encounter Summary ---
Author Organization [facility] Address [address] [place] [address] Care Team Providers Care Service Desk Analyst Name Role Phone Jonna Carvalho MD Primary Care Provider Nicola Soni MD Primary Care Provider Carl Chapa, Pcp Primary Care Provider [facility] Reason for Visit * Reason Onset Date Comments Prior Authorization 04/21/2018 Encounter Details Date Type Department Care Team Description 04/21/2018 Telephone Gastroenterology - [address] [address] Griffin Saucedo PA-C Prior Authorization Social History [...] Viverosrar - 04/21/2018 11:23 AM EDT [facility] auth required 04/21/18 - 04/21/19 [id number] To be done at [facility] * Telephone Encounter - Renetta Winter - 04/21/2018 10:39 AM EDT Pre-auth needed Patient is scheduled for a colonoscopy on 05-01-18 Patients insurance: Payor: [facility] / Plan: PPO $20 [id number] / Product Type: PPO [id number] Appointment is with Ruby Rosales MD Code to process pre-auth for: [id number] Location of procedure: [facility] documented in this encounter Plan of Treatment Not on file documented as of this encounter Visit Diagnoses Not on filedocumented in this encounter Care Teams Service Desk Analyst Relationship Specialty Start Date End Date Jonna Carvalho MD PCP - General Internal Medicine 03/31/18 10/26/21 Nicola Spears MD PCP - General Internal Medicine 10/27/21 07/09/23 [facility], Pcp PCP - General Internal Medicine 07/10/23 documented as of this encounter
--- OUTSIDE RECORDS SUMMARY | 2025-02-03 11:30 | XMS_ITS | Encounter Summary ---
Author Organization [facility] Address [address] [place] [address] Care Team Providers Care Deployment Specialist Name Role Phone Jonna Carvalho MD Primary Care Provider Nicola Soni MD Primary Care Provider Carl Chapa, Pcp Primary Care Provider Jayson jauregui Encounter Details Date Type Department Care Team Description 03/08/2020 Orders Only Medical Records [address] [place] [address] Preeti Xiong DO Social History Tobacco Use [...] on filedocumented in this encounter Care Teams Deployment Specialist Relationship Specialty Start Date End Date Jonna Carvalho MD PCP - General Internal Medicine 03/31/18 10/26/21 Nicola Spears MD PCP - General Internal Medicine 10/27/21 07/09/23 [facility], Pcp PCP - General Internal Medicine 07/10/23 documented as of this encounter
--- OUTSIDE RECORDS SUMMARY | 2025-02-03 11:30 | XMS_ITS | Encounter Summary ---
Author Organization [facility] Address [address] [place] [address] Care Team Providers Care Retail Planner Name Role Phone Jonna Carvalho MD Primary Care Provider Nicola Soni MD Primary Care Provider Carl Chapa, Pcp Primary Care Provider Jayson jauregui Encounter Details Date Type Department Care Team Description 08/25/2020 Telephone Adult Medicine [address] [address] Jonna Carvalho MD Social History Tobacco Use [...] on filedocumented in this encounter Care Teams Retail Planner Relationship Specialty Start Date End Date Jonna Carvalho MD PCP - General Internal Medicine 03/31/18 10/26/21 Nicola Spears MD PCP - General Internal Medicine 10/27/21 07/09/23 [facility] PCP - General Internal Medicine 07/10/23 documented as of this encounter
--- OUTSIDE RECORDS SUMMARY | 2025-02-03 11:30 | XMS_ITS | Encounter Summary ---
Author Organization [facility] [facility] Address [address] [place] [address] Care Team Providers Care Electrical Electronics Technician Name Role Phone Jonna Carvalho MD Primary Care Provider Nicola Soni MD Primary Care Provider Carl Chapa, Pcp Primary Care Provider Jayson jauregui Encounter Details Date Type Department Care Team Description 04/08/2018 Release of Information Medical Records [address] [place] [address] Abstract, Provider Social History Tobacco Use Types Packs/Day Years Used Date Smoking Tobacco: Never Smokeless Tobacco: Never Physical Activity Answer Date Recorded On average, [...] on filedocumented in this encounter Care Teams Electrical Electronics Technician Relationship Specialty Start Date End Date Jonna Carvalho MD PCP - General Internal Medicine 03/31/18 10/26/21 Nicola Spears MD PCP - General Internal Medicine 10/27/21 07/09/23 [facility] PCP - General Internal Medicine 07/10/23 documented as of this encounter
--- OUTSIDE RECORDS SUMMARY | 2025-02-03 11:30 | XMS_ITS | Data Portability ---
Author Organization [facility] [employer] Address [address] [place] [address] [place] [address] Care Team Providers Care Front End Loader Driver Name Role Phone JAZMYNE LINDO Referring Provider JAZMYNE LINDO Primary Care Provider [phone] Assessment Encounter Date Assessment Date Assessment LastModified [...] likely that the CSF assays sent by [facility] after September 10, 2023 lumbar puncture [...] find: Ophthalmology note, CSF results sent after [facility] Follow up after mrossen Not [...] likely that the CSF assays sent by [facility] after September 10, 2023 lumbar puncture [...] cervical spine without contrast February 13, 2024 [facility] radiology: Suboptimal evaluation secondary to motion. Within this constraint: The cervical spinal cord is normal in signal intensity. There is no high-grade central spinal canal stenosis. Up to moderate bilateral neuroforaminal stenosis at C4-5. MRV brain with and without IV contrast, [facility], compared to brain MRI December 17, 2018 and MR a head October 01, 2023 [facility]: No cerebral venous thrombosis, unremarkable study more generally. MRA head without contrast [facility] October 02, 2023: Normal. CSFNov2022 clear, colorless, WBC = 0, RBC = 12/8 [2 #4 presumably], glucose 106, total protein 25.1 serum: September 10 2023 glucose 210 test negative Lumbar puncture note [facility], September 10, 2023, for chief complaint [...] ondansetron, rizatriptan PLAN [facility] March 24, 2024 She wants to think about whether she wants to continue working with me. She will call, and a week she thinks, if she does, and we agree that at that point I would look at [facility] interventional radiology and have her follow-up to [...] By Organization Details Last Modified Time 01/27/2024 62574 Discussion acros s issues of diagnoses and management and same day associated chart review and management greater than 50% greater than 60 minutes mrossen Not available 01/27/2024 14:30:31 03/24/2024 [id number] PREVIOUS DISCUSSION >>>>>>>>January 27, 2024 initial neurology [...] ast No observ ation record ed. [email or web address] [facility] [address] [place], [address], 03/25/2024 16:03:10 Result Notes None recorded. Procedures Surgical History Date Name Laterality Status Provider Name and Address Organization Details Recorded Time 03/24/2024 DATA REVIEW completed Ilya Mckeon MD [address] [place], [place] [address], [address], [facility] Neurology [facility] 03/24/2024 10:16:01 01/27/2024 DATA REVIEW completed Ilya Mckeon MD [address] [place], [place] [address], [address], [facility] Neu[facility] 01/27/2024 14:11:59 Imaging Results Imaging Date Name Status LastModified by [facility]iz [facility] Details LastModified Time 07/06/2023 MRI, [...] MRI, cervical spine, w/o contrast completed [email or web address] [facility] [address] [facility], [place], [address], 03/25/2024 16:03:10 Procedure Notes None recorded. Medical Equipment None Reported. Allergies Allergen ID Allergen Name Allergen Category Reaction Reaction Severity Criticality Documentation Date Start Date Code Code System Note Provider Name and Address Organization Details Recorded Time 3895 heparin medicatio n Not available Not available Not available 01/27/2024 5224 RxNorm Eli Vegas [facility] 13:24:25 Medications Name Sig Start Date [...] Not Available Not Available No t Available [employer] Zeynep 3 Sensor device USE DIRECTED FOR DIABETES. CHANGE EVERY 14 DAYS active Not Available Not Available No t Available Vitals Date Recorded Body height Body mass index (BMI) Body weight Respiratory rate Provider Name and Address Organization Details Last Updated DateTime 01/27/2024 149.86 cm 46 kg/m2 657955.06 g 12 /min Eli Vegas [facility] 01/27/2024 13:24:17 Social History Question Answer Notes LastModified by Organizat ion Details LastModified Time Tobacco Smoking Status Never Smoker Eli haile [facility] 01/27/2024 13:26:01 What Is Your Level Of Alcohol Consumption? None Information not available 01/27/2024 What Is Your Level Of Caffeine Consumption? Moderate 1 Cup Daily Information not available 01/27/2024 What Is The Highest Grade Or Level Of School You Have Completed Or The Highest Degree You Have Received? [id number] Information not available 01/27/2024 Which Of Your [...] N Vitamin B12 deficiency N Heart Attack (NE) N Spine Problems N Obstructive Sleep Apnea [...] SNOMED-CT Code Diagnosis ICD10 Code Diagnosis Note 37842 Ilya Mckeon MD [facility] [address] [place] [address] [place] [address] 01/27/2024 12:43:24 01/27/2024 15:32:53 Benign intracranial hypertension 99480356 G93.2 Migraine without aura 56 617303 G43.009 93721 Ilya Mckeon MD [facility] [address] [place] [address] [place] [address] 03/24/2024 09:45:33 03/24/2024 10:51:41 Benign intracranial hypertension 38085434 G93.2 Migraine without aura 56 643277 G43.009 Health Concerns Section Related Observation LastModified by Organization Detai ls LastModified Time None Recorded Concern Status LastModified by Organization Details LastModified Time None Recorded Advance Directives Directive None Recorded Payers Encounter Date Sequence Insurance Name Policy Number Policy Cowan Covered Member ID Cowan Member ID Guarantor Name 01/27/2024 1 [facility] [id number] Susan Escobedo [id number] Susan Escobedo 03/24/2024 1 [facility] [id number] Susan Escobedo [id number] Susan Escobedo Notes Date Note Type Note Provider Name and Address Organization Details Recorded Time 01/27/2024 text/html She presents for initial neurology consultation for assessment and management of June 26-2022, onset of persistent, dizziness, arm tingling, partially improved slurring, visual blurring, and on June 29 headache, which also persists, all preceded by 2000 23-day at the [place].She is accompanied by her sister, Gracie.Before June 26, 2023, she rarely got headaches, at most three times a year, and always mild. The only tingling she has ever had has been below her right knee and her right leg since right-sided knee meniscus surgery. She has generally not had visual blurring or speech slurring or dizziness.On 2023 she spent the day at the [place]. She got very real on June 26 [...] note) after which neurology (JASWANT Rock) at [facility] gave her a diagnosis of [...] less than previously, 50% Ilya Mckeon MD [address] [place] [address] [place], [address], [facility] 01/27/2024 16:54:01 03/24/2024 text/html Follow up [...] note) after which neurology (JASWANT Rock) at [facility] gave her a diagnosis of [...] less than previously, 50% Ilya Mckeon MD [address] [place], [place] [address], [address], [facility] Neu[facility] 03/24/2024 10:46:08 OBGyn Episode No OBEpisode recorded.
--- OUTSIDE RECORDS SUMMARY | 2025-02-03 11:30 | XMS_ITS | Encounter Summary ---
Author Organization [facility] Address [address] [place] [address] Care Team Providers Care Voltage Inspector Name Role Phone Jonna Carvalho MD Primary Care Provider Nicola Soni MD Primary Care Provider Carl Chapa, Pcp Primary Care Provider Jayson jauregui Encounter Details Date Type Department Care Team Description 09/23/2019 Old Medical Records Medical Records [address] [place] [address] Abstract, Provider Social History Tobacco Use Types [...] on filedocumented in this encounter Care Teams Voltage Inspector Relationship Specialty Start Date End Date Jonna Carvalho MD PCP - General Internal Medicine 03/31/18 10/26/21 Nicola Spears MD PCP - General Internal Medicine 10/27/21 07/09/23 [facility], Pcp PCP - General Internal Medicine 07/10/23 documented as of this encounter
--- OUTSIDE RECORDS SUMMARY | 2025-02-03 11:30 | XMS_ITS | Encounter Summary ---
Author Organization [facility] Address [address] [place] [address] Care Team Providers Care Automobile Brakes Bonder Name Role Phone Jonna Carvalho MD Primary Care Provider Nicola Soni MD Primary Care Provider Carl Chapa, Pcp Primary Care Provider Jayson jauregui Encounter Details Date Type Department Care Team Description 12/29/2019 Electronic Gaming Device Supervisor Report Medical Records [address] [place] [address] Abstract, Provider Social History Tobacco Use Types [...] on filedocumented in this encounter Care Teams Automobile Brakes Bonder Relationship Specialty Start Date End Date Jonna Carvalho MD PCP - General Internal Medicine 03/31/18 10/26/21 Nicola Spears MD PCP - General Internal Medicine 10/27/21 07/09/23 [facility], Pcp PCP - General Internal Medicine 07/10/23 documented as of this encounter
--- OUTSIDE RECORDS SUMMARY | 2025-02-03 11:30 | XMS_ITS | Encounter Summary ---
Author Organization [facility] Address [address] [place] [address] Care Team Providers Care Linter Tender Name Role Phone Jonna Carvalho MD Primary Care Provider Nicola Soni MD Primary Care Provider Carl Chapa, Pcp Primary Care Provider Jayson jauregui Encounter Details Date Type Department Care Team Description 01/06/2019 City Mail Carrier Report Medical Records [address] [place], [place] [id number] [place] [address] Diabetes Education [address] [facility] [address] [place] [address] Social History Tobacco Use Types Packs/Day Years [...] on filedocumented in this encounter Care Teams Linter Tender Relationship Specialty Start Date End Date Jonna Carvalho MD PCP - General Internal Medicine 03/31/18 10/26/21 Nicola Spears MD PCP - General Internal Medicine 10/27/21 07/09/23 [facility], Pcp PCP - General Internal Medicine 07/10/23 documented as of this encounter
--- OUTSIDE RECORDS SUMMARY | 2025-02-03 11:30 | XMS_ITS | Encounter Summary ---
Author Organization [facility] Address [address] [place] [address] Care Team Providers Care Order Tracer Name Role Phone Jomar Carvalho MD Primary Care Provider Nicola Soni MD Primary Care Provider Carl Chapa, Pcp Primary Care Provider [facility] Reason for Visit * Reason Onset Date Comments Orders Call 04/21/2018 Encounter Details Date Type Department Care Team Description 04/21/2018 Telephone Adult Medicine [address] [address] Jomar Carvalho MD Orders Call Social History Tobacco Use Types Packs/Day Years [...] encounter Miscellaneous Notes * Telephone Encounter - Yasmine Tee M.A. - 04/22/2018 11:29 AM EDT Patient has appt 04/29 refuses change at this time * Telephone Encounter - Xin Durant - 04/22/2018 10:58 AM EDT Patient returning call * Telephone Encounter - Yasmine Tee M.A. - 04/22/2018 10:46 AM EDT Message left for patient to return my call. [id number] * Telephone Encounter - Jomar Carvalho MD - 04/21/2018 4:41 PM EDT I reviewed her labs she is a diabetic. Not pre diabetic. Needs office visit with me. She can schedule with me and cancel appointment with dr. Lyman. * Telephone Encounter - Yasmine Tee M.A. - 04/21/2018 4:26 PM EDT Please review and advise * Telephone Encounter - Clarice Vazquez - 04/21/2018 2:37 PM EDT Patient calling to request labs be ordered: What lab work is patient requesting? Diabetes, patient forgot to mention it to the doctor on today visit. She stated that she is prediabetic and she wants to get tested. Does patient have an upcoming appointment, if yes when and WITH WHO? yes 04/29/18 Patients PCP is: JOMAR AARON documented in this encounter Plan of Treatment Not on file documented as of this encounter Visit Diagnoses Not on filedocumented in this encounter Care Teams Order Tracer Relationship Specialty Start Date End Date Jomar Carvalho MD PCP - General Internal Medicine 03/31/18 10/26/21 Nicola Spears MD PCP - General Internal Medicine 10/27/21 07/09/23 [facility], Pcp PCP - General Internal Medicine 07/10/23 documented as of this encounter
--- OUTSIDE RECORDS SUMMARY | 2025-02-03 11:30 | XMS_ITS | Encounter Summary ---
Author Organization [facility] Address [address] [place] [address] Care Team Providers Care Windows Vmware Administrator Name Role Phone Jonna Carvalho MD Primary Care Provider Nicola Soni MD Primary Care Provider Carl Chapa, Pcp Primary Care Provider Jayson jauregui Encounter Details Date Type Department Care Team Description 04/11/2020 Orders Only Adult Medicine [address] [address] Preeti Xiong, Type 2 diabetes mellitus without complication, without long-term current use of insulin (HCC); Bunion of great toe of right foot Social History Tobacco Use Types Packs/Day Years [...] documented as of this encounter Visit Diagnoses Diagnosis Type 2 diabetes mellitus without complication, without long-term current use of insulin (HCC) Bunion of great toe of right foot Bunion documented in this encounter Care Teams Windows Vmware Administrator Relationship Specialty Start Date End Date Jonna Carvalho MD PCP - General Internal Medicine 03/31/18 10/26/21 Nicola Spears MD PCP - General Internal Medicine 10/27/21 07/09/23 [facility], Pcp PCP - General Internal Medicine 07/10/23 documented as of this encounter
--- OUTSIDE RECORDS SUMMARY | 2025-02-03 11:30 | XMS_ITS | Encounter Summary ---
Author Organization [facility] Address [address] [place] [address] Care Team Providers Care Cigar Sorter Name Role Phone Nicola Spears MD Primary Care Provider Carl Chapa, Pcp Primary Care Provider Jayson e Reason for Visit * Reason Onset Date Comments er follow up 01/02/2022 Encounter Details Date Type Department Care Team Description 01/02/2022 Telephone Adult Medicine [address] [address] Nicola Spears MD er follow up Social History Tobacco Use Types [...] * Telephone Encounter - Alix Chua - 01/02/2022 4:52 PM EDT Called and left vm to return my call * Telephone Encounter - Shireen Troy - 01/02/2022 9:41 AM EDT Hospital follow up appointment needed Hospital patient was treated at: [facility] Was this only an ER visit or was the patient admitted to the hospital? ER visit only Date of visit if ER visit only: 12/22/21 If patient was admitted what was the date of discharge? N/A Reason/diagnosis for visit or stay: swelling leg When was the patient told to follow up? Was visit or stay related to an injury? NO If yes, what was the date of injury (DOI)? N/A If yes, was the injury due to N/A documented in this encounter Plan of Treatment Not on file documented as of this encounter Visit Diagnoses Not on filedocumented in this encounter Care Teams Cigar Sorter Relationship Specialty Start Date End Date Nicola Spears MD PCP - General Internal Medicine 10/27/21 07/09/23 [facility], Pcp PCP - General Internal Medicine 07/10/23 documented as of this encounter
--- OUTSIDE RECORDS SUMMARY | 2025-02-03 11:30 | XMS_ITS | Clinical Summary ---
Author Organization [facility] Address [address] [place] [address] Care Team Providers Care Library Customer Service Clerk Name Role Phone Nicola Spears MD Primary Care Provider [phone] Surgical History Surgery Date Site/Laterality Comments CARPAL TUNNEL RELEASE PROCEDURE: NV NEUROPLASTY &/TRANSPOS MEDIAN NRV CARPAL TUNNE; COMMENT: bilateral TONSILLECTOMY PROCEDURE: HISTORICAL TONSILLECTOMY COLONOSCOPY 05/01/2018 PROCEDURE: OUTSIDE COLONOSCOPY; COMMENT: diminutive tubular adenoma polyp. random colonic bx normal. KNEE ARTHROSCOPY W/ MENISCAL REPAIR 12/11/2019 PROCEDURE: NV ARTHROSCOPY KNEE W/MENISCUS RPR MEDIAL/LATERAL; COMMENT: root repair; [facility] Medical History Medical History Date Comments Chiari malformation type II (CMS/HCC V24, CMS/HCC V28) 04/21/2018 DX:Chiari malformation type II (HCC); COMMENT: [...] obesity with BMI of 4 5.0-49.9, adult (CMS/HCC V24, CMS/HCC V28) 04/21/2018 DX:Morbid obesity wit h BMI of 45.0-49.9, adult ([facility]) Tubular adenoma of colon 05/15/2018 DX:Tubu lar adenoma of colon Irritable bowel syndrome wit h diarrhea 08/05/2018 DX:Irritable bowel syndrome with diarrhea Moderate persistent asthma w ith acute exacerbation 01/05/2019 DX:Moderate persistent asthm a with acute exacerbation DM (diabetes mellitus), type 2 with renal complications ([facility]/HCC V24, [facility]/HCC V28) 04/29/2018 DX:DM (diabetes mellitus), t ype 2 with renal complications ([facility]) Family History Medical History Relation Name Comments [...] - 2023-2 5 season) 2024 Influenza Vaccine (Season Ended) 2025 DTaP,Tdap,and Td Vaccines (2 - Td or [...] age to complete this topic Meningococcal B Vaccine Aged Out No l onger eligible based on patient's age to complete this topic RSV Immunization Patients Un mackenzie 20 months Aged Out No longer eligible b ased on patient's age to complete this topic Varicella Vaccines Aged Out No longer eligible based on patient's age to complete this topic Care Teams Library Customer Service Clerk Relationship Specialty Start Date End Date Nicola Spears MD [address] [place] [address] PCP - General Internal Medicine 10/27/21
--- OUTSIDE RECORDS SUMMARY | 2025-02-03 11:30 | XMS_ITS | Encounter Summary ---
Author Organization [facility] Address [address] [place] [address] Care Team Providers Care Supervisor Sample Preparation Name Role Phone Nicola Spears MD Primary Care Provider Carl Chapa, Pcp Primary Care Provider Jayson e Reason for Visit * Reason Onset Date Comments hospital follow up 07/20/2022 Encounter Details Date Type Department Care Team Description 07/20/2022 Telephone Adult Medicine [address] [address] Kelle Metcalf PAAllisonC hospital follow up Social [...] AM EDT Please contact patient. [place] [facility] [place] for acute asthma exacerbation. Patient hasnot been seen in medicine department since 07/12/2020. She is a known diabetic. Need to clarify PCP and get her set up with an appointment DANIELE for diabetes follow-up and hospital follow-up if she is still a [facility] patient. Thank you documented in this encounter Plan of Treatment Not on file documented as of this encounter Visit Diagnoses Not on filedocumented in this encounter Care Teams Supervisor Sample Preparation Relationship Specialty Start Date End Date Nicola Spears MD PCP - General Internal Medicine 10/27/21 07/09/23 [facility], Pcp PCP - General Internal Medicine 07/10/23 documented as of this encounter
--- OUTSIDE RECORDS SUMMARY | 2025-02-03 11:30 | XMS_ITS | Clinical Summary ---
Author Organization [facility] Address [address] [place] [address] Care Team Providers Care Lease Attendant Name Role Phone Community, Pcp Primary Care [...] Each 5 12/31/2018 Active Continuous Blood Gluc Catastrophe Claims Supervisor (FREESTYLE MAUDE 14 DAY READER) Device 1 Device by Does not apply route as needed (Use to read sensor three times a day for diabetes.). 1 Device 0 02/23/2019 Active Continuous Blood Gluc Sensor (FREESTYLE MAUDE 14 DAY SENSOR) [facility] Use to check blood sugars. Apply to the back of the upper arm every 14 days. 2 Each 6 03/10/2019 Active Blood Glucose Monitoring Suppl (CONTOUR NEXT ONE) Kit 1 Kit by Does not apply route 2 times daily. 1 Kit 0 07/21/2019 Active MICROLET LANCETS [facility] USE TO TEST TWICE DAILY 200 Each [...] Eliquis Asthma, moderate persistent 01/05/2019 Overview: Admitted [facility] 07/01- for exacerbation Irritable bowel syndrome with [...] (#2) 2045 02/09/2019 (External Completion) Care Teams Lease Attendant Relationship Specialty Start Date End Date [facility], Pcp PCP - General Internal Medicine 07/10/23
--- OUTSIDE RECORDS SUMMARY | 2025-02-03 11:30 | XMS_ITS | Encounter Summary ---
Author Organization [facility] Address [address] [place] [address] Care Team Providers Care Vegetable Harvest Machine Operator Name Role Phone Jonna Carvalho MD Primary Care Provider Nicola Soni MD Primary Care Provider Carl Chapa, Pcp Primary [facility] Reason for Visit * Reason Onset Date Comments refill request 01/09/2019 Encounter Details Date Type Department Care Team Description 01/09/2019 Refill Adult Medicine [address] [address] Jonna Carvalho MD refill request Social History Tobacco Use Types Packs/Day Years [...] encounter Miscellaneous Notes * Telephone Encounter - Candelaria Lundy - 01/09/2019 4:29 PM EDT Patient would like script to be: E-PRESCRIBED/FAXED TO PHARMACY When was the patients last office visit in Adult Medicine?: 01/05/19 When was the last time the patient saw their PCP? 12/29/18 Does patient have an upcoming appointment? Yes 01/26/19 (THE MEDICATION IS NOT ON THE MED LIST AND IS IDENTIFIED BELOW): {MED LIST:64650) Med name: Freestyle Zeynep Meter Dosage: # of tablets: Local pharmacy with request for 30 -day supply Instructions: Did you check the pharmacy information above?: YES Patients current insurance carrier: Payor: [employer] / Plan: PPO $20 [employer] [id number] / Product Type: PPO [id number] documented in this encounter Plan of Treatment Not on file documented as of this encounter Visit Diagnoses Not on filedocumented in this encounter Care Teams Vegetable Harvest Machine Operator Relationship Specialty Start Date End Date Jonna Carvalho MD PCP - General Internal Medicine 03/31/18 10/26/21 Nicola Spears MD PCP - General Internal Medicine 10/27/21 07/09/23 [facility], Pcp PCP - General Internal Medicine 07/10/23 documented as of this encounter
--- OUTSIDE RECORDS SUMMARY | 2025-02-03 11:30 | XMS_ITS | Encounter Summary ---
Author Organization [facility] Address [address] [place] [address] Care Team Providers Care Prosthetics Technician Name Role Phone Jonna Carvalho MD Primary Care Provider Nicola Soni MD Primary Care Provider Carl Chapa, Pcp Primary Care Provider Jayson jauregui Encounter Details Date Type Department Care Team Description 12/08/2018 Lockstitch Front Maker Report Medical Records [address] [place] [address] Jennifer Moe [address] [place] [address] Social History Tobacco Use Types Packs/Day Years [...] on filedocumented in this encounter Care Teams Prosthetics Technician Relationship Specialty Start Date End Date Jonna Carvalho MD PCP - General Internal Medicine 03/31/18 10/26/21 Nicola Spears MD PCP - General Internal Medicine 10/27/21 07/09/23 [facility], Pcp PCP - General Internal Medicine 07/10/23 documented as of this encounter
--- NOTE | 2025-02-03 11:33 | MHC.SL.IMP ---
Date of Plan of Treatment: 02/03/25 Onset of Symptoms/Illness: 12/18/24 Date Treatment Started: 02/03/25 Admitting Diagnosis: Dysphagia Primary Speech & Language Diagnosis: R13.13 Pharyngeal Phase Dysphagia Reason for Today's Visit: 63792 Modified Barium Swallow Study Pre-evaluation Dietary Consistencies: Regular Pre-evaluation Liquid Consistency: Thin Pre-evaluation Medication Administration: Whole with Liquid Medical History: Modified Barium Swallow Study Fluoroscopic Evaluation of Swallowing Function CPT Code 80418 Evaluation Year: 2024 Reason for Study: Difficulty swallowing Referring Physician: Morelia Agarwal MD Evaluating Clinician: Ave Israel MA, CCC-MATERIAL CONTROL MANAGER Study Number: 1 Patient Name: Susan Escobedo Status: Outpatient, Ambulatory Age: 44 Gender: Female Medical History Medical History Asthma Sleep apnea Hypertension IBS (irritable bowel syndrome) DVT (deep venous thrombosis) COVID-19 Diabetes Surgical History [place] teeth extracted Hx of carpal tunnel repair Hx of tonsillectomy Hx of knee surgery Current (pre-evaluation) Intake/Diet: Route: PO Diet Grade: Regular Liquid Consistencies: Thin Pre-Study Functional Oral Intake Scale (FOIS): 7- Total oral intake with no restrictions Pain: None reported at time of study SUBJECTIVE: Patient is a 44 year old female referred for a modified barium swallow study by the ENT office. Patient reports coughing and choking on solids foods, especially spaghetti noodles, pickles, and meats. She says she coughs at night on her saliva as well. Patient denies any difficulty swallowing liquids and denies odynophagia and globus sensation. Pertinent medical history includes mild intermittent asthma, DM2, DVT, migraine headaches, IBS, sleep apnea, and hx tonsillectomy. Food and Liquid Trials: Oral Impairment: Lip Closure: 0=No labial escape Oral Impairment: Tongue Control During Bolus Hold: 0=Cohesive bolus between tongue to palatal seal Oral Impairment: Bolus Preparation/Mastication: 1=Slow prolonged chewing/mashing with complete re-collection Oral Impairment: Bolus Transport/Lingual Motion: 2=Slowed tongue motion Oral Impairment: Oral Residue: 1=Trace residue lining oral structures Oral Impairment:Initiation of Pharyngeal Swallow: 2=Bolus head at posterior laryngeal surface of epiglottis Pharyngeal Impairment: Soft Palate Elevation: 0=No bolus between soft palate (SP)/pharyngeal wall (PW) Pharyngeal Impairment: Laryngeal Elevation: 1=Partial thyroid cartilage/arytenoids to epiglottic petiole movement Pharyngeal Impairment: Anterior Hyoid Excursion: 1=Partial anterior movement Pharyngeal Impairment: Epiglottic Movement: 0=Complete inversion Pharyngeal Impairment: Laryngeal Vestibular Closure:: 1=Incomplete: narrow column air/contrast in laryngeal vestibule Pharyngeal Impairment: Pharyngeal Stripping Wave: 0=Present: complete Pharyngeal Impairment: Pharyngeal Contraction: Did not test Pharyngeal Impairment: Pharyngoesophageal Segment Openin=Partial distention/partial duration: partial obstruction of flow Pharyngeal Impairment: Tongue Base (TB) Retraction: 0=No contrast between tongue base and posterior pharyngeal wall Pharyngeal Impairment: Pharyngeal Residue: 1=Trace residue within or on pharyngeal structures Pharyngeal Impairment: Esophageal Clearance Upright Position: Did not test Impressions and Recommendations OBJECTIVE: Time-out: performed at 10:45 Evaluation Start: 10:30; Stop: 10:35 Patient Positioning: Standing Viewing Planes: LATERAL ONLY Contrast: MBSImP? Standardized Protocol using commercially prepared, standardized Barium viscosities, including: Varibar? THIN LIQUID (40% w/v, <15 cps) , Varibar? PUDDING (40% w/v, <5561-1813 cps) , 1/2 Shortbread Cookie (1 x1 x.25 ) MBSImP ID: [id number] [facility]: Lip closure for intraoral bolus containment resulted in no labial escape. Tongue control during bolus hold maintained a cohesive bolus held between tongue to palate seal. Bolus preparation and mastication resulted in slow, prolonged chewing/mashing but with complete re-collection. Bolus transport/lingual motion was with slowed tongue motion. Oral residue was a trace, lining oral structures. Initiation of the pharyngeal swallow occurred as the bolus head was at the posterior laryngeal surface of the epiglottis. Soft palate elevation resulted in no bolus between the soft palate and the pharyngeal wall. Laryngeal elevation was decreased, with partial superior movement of the thyroid cartilage/partial approximation of the arytenoids to the epiglottic petiole. Anterior hyoid excursion demonstrated partial anterior movement. Epiglottic movement resulted in complete inversion. Laryngeal vestibular closure was incomplete, with a narrow column of air/contrast noted within the laryngeal vestibule at the height of the swallow. Pharyngeal stripping wave was present and complete. Pharyngeal contraction could not be determined due to logistical reasons not related to physiologic impairment. Pharyngoesophageal segment opening demonstrated partial distension/partial duration, with partial obstruction of bolus flow. Tongue base retraction allowed no contrast between the retracted tongue base and the posterior pharyngeal wall. Pharyngeal residue was a trace within or on pharyngeal structures. Esophageal clearance in the upright position could not be assessed due to logistical reasons not related to physiologic impairment. Oral Impairment Score: 5 Pharyngeal Impairment Score: 4 (absence of score, component 13) Esophageal Impairment Score: --- (absence of score, component 17) Laryngeal Penetration and Aspiration: Neither penetration nor aspiration was observed in today's study with Cookie, Pudding-thick. Penetration was observed in today's study. Thin Contrast entered the airway, remained above the vocal folds, and was ejected from the airway. ASSESSMENT: This exam was performed by the speech pathologist and the radiologist. Patient was standing for lateral view only and fed herself without any difficulty. She trialed the following consistencies: thin (via individual cup sips), puree, and regular solid. Oral phase was mildly slowed, but otherwise unremarkable. Adequate lip closure with no anterior spilling. Good tongue control, with cohesive bolus held between the tongue to palatal seal, and no premature posterior escape. Mastication was mildly slowed and posterior lingual motion was also slowed, but with good overall recollection. Trace lingual residue cleared on secondary swallows. Pharyngeal swallow trigger initiated as the bolus head reached the posterior laryngeal surface of the epiglottis. No evidence of nasopharyngeal reflux. Partial laryngeal elevation and incomplete laryngeal vestibular closure. There was flash penetration episodically on thin liquids. A trace amount of contrast momentarily entered the airway and spontaneously cleared. No evidence of aspiration during this exam. Trace residue on the tongue base and in the valleculae on liquids, with complete clearance on solids. There was partial distention through the pharyngoesophageal segment (PES) opening. Liquid Intake Recommendation: Thin Liquid Intake Strategies: Dietary Recommendations: Regular Medication Administration: Whole with Liquid Please contact the pharmacy regarding appropriate crushable or liquid drug formulations that are available whenever modified delivery is recommended. Compensatory Strategies Recommended: Sitting Upright (90 deg), Small Bites and Sips, Alternate Liquids/Solids, Rate of Ingestion Change Recommendation for Speech Therapy: NA:Typical Evaluation Text Comment: Intake Recommendations: Route: PO Diet Grade: Regular Liquid Consistencies: Thin Post-Study Functional Oral Intake Scale (FOIS): 7- Total oral intake with no restrictions Flash penetration episodically on thin liquids. No evidence of aspiration during this exam. Good oral and pharyngeal clearance. Suggested Referrals: The patient might benefit from a referral to: Gastroenterology Indication for Referral: Partial distention through PES Otolaryngology Indication for Referral: Continue workup with referring provider Therapy Recommendations: Further speech therapy and diet modification is not indicated at this time. Recommend standard aspiration precautions: maintain upright position while eating and drinking, take one bite at a time, chew food well, and alternate with sips of liquid. Patient to continue workup with referring provider. Clinician - Supplemental, Miscellaneous Communication: It is important to note MBSS objective studies are snapshots in time and Patient function might vary with factors such as time of day or concomitant medical conditions. For this reason, the final treatment plan for this patient should rest with their medical care team. Additional recommendations should be considered with the totality of the Patient in mind. Thank for the opportunity to participate in the care of this patient. If you have any questions about the content of this report, please contact the [facility] at [facility]. Education: Education regarding findings from today's study and plans for therapy were provided to Patient only through Verbal Instruction. Understanding was expressed by the Patient only. Basket Grader Clinician/Clinical Fellow: No Supervisory Statement: N/A Speech Language Pathologist: Ave Israel M.A., CCC-MATERIAL CONTROL MANAGER
== END 2025-02-03 10:01 | disposition home or self-care (01) ==
LOC: HO.XRAY 10:00
PROVIDERS: PCP Nurse Practitioner Family; Visit Provider Otolaryngology
DX: R13.12 Dysphagia, oropharyngeal phase (principal); E11.65 Type 2 diabetes mellitus with hyperglycemia; Z79.4 Long term (current) use of insulin
CPT/HCPCS: 36415; 74230; 80053; 92611

== ENCOUNTER → 2025-02-03 10:30 | Outpatient (BNV) | payer OTHER, SELFPAY | PROVIDERS: PCP Nurse Practitioner Family; Visit Provider Radiology Diagnostic Radiology | DX: R13.10 Dysphagia, unspecified (principal) | CPT/HCPCS: 74230 ==

== ENCOUNTER 2025-02-04 09:28 | Outpatient (AMB) | payer OTHER, SELFPAY ==
--- NOTE | 2025-02-04 09:38 | A.OFFVIS_ITS ---
VS Expanded 02/04/25 09:39 Height 4 ft 11 in Weight 222 lb 10.67 oz BMI 45.0 Intake Visit Reasons: T2DM Allergies Heparin Analogues [HEPARIN AGENTS] Allergy (Intermediate, Verified 02/17/25 08:17) HIVES, RASH, SEVERE BRUISING dulaglutide [From Trulicity] Allergy (Verified 02/17/25 08:17) Rash Nutrition Presentation Details: Pt presents for MNT for T2DM BG download not avail at the time of this appt. Pt reports BG above 180 , related to increased food intake and not taking DM meds as rx by doctor. Pt also reports making meals for family members, then becomes nauseous and chooses smoothies or high sugar beverages which she is able to tolerate. BS Monitoring Most Recent Diabetes Results: Creatinine 0.69 mg/dL (0.5-1.4) 02/03/25 Blood Urea Nitrogen 8 mg/dL (9-16) L 02/03/25 Sodium 137 mmol/L (135-145) 02/03/25 Potassium 4.3 mmol/L (3.3-5.1) 02/03/25 Chloride 104 mmol/L (96-108) 02/03/25 Carbon Dioxide 25 mmol/L (22-29) 02/03/25 Calcium 9.3 mg/dL (8.4-10.2) 02/03/25 AST 21 U/L (5-31) 02/03/25 ALT 43 U/L (0-31) H 02/03/25 Total Protein 6.9 g/dL (6.5-8.0) 02/03/25 Albumin 4.0 g/dL (3.5-5.0) 02/03/25 [facility] Medical History Asthma Sleep apnea Hypertension IBS (irritable bowel syndrome) DVT (deep venous thrombosis) COVID-19 Diabetes Surgical History [place] teeth extracted Hx of carpal tunnel repair Hx of tonsillectomy Hx of knee surgery Family History Maternal Grandfather Substance abuse Heart attack Maternal Grandmother Stomach cancer Father Diabetes Asthma Mother Asthma Social History Household Members: Family Housing: House Do you presently have visiting nurse or other home services: No 75 years or older and lives alone: No Alcohol intake: never Patient Tobacco Use Status: Never used Tobacco e-Cigarette/Vaping Use: Never Used Advance Directives Date on File: 06/29/22 service: No Current occupational status: employed Cognitive needs: Yes Hearing needs: Yes Vision needs: Yes (wear glasses) Assessment & Plan Assessment & Plan (1) Diabetes mellitus type 2 with complications: Code(s): E11.8 - Type 2 diabetes mellitus with unspecified complications Category: Medical Plan: Wt: 100 Kg ( 12/15 ), 101 kg (03/14) Est kcal needs as per MSJ: 1800 (40% carb, 30% protein/fat) Est fluid needs as per 25-30 ml/d: 3000 Est prot per day as per 1 g/kg bw: 100 Recommend fiber intake : 8-10 g per day and gradually increase to 25-28 g per day for women and 35-38 g for men or as tolerated Recommend sodium intake per day : less than 2300 mg Educated patient on: ( R = reviewed V = verbalizes understanding N/R = needs review N/A = not applicable * Food sources of carbohydrate, adequate serving sizes and its role in various health conditions: R * Differences between complex carbohydrates a simple carbohydrates, role of fiber in diet: R * Lean protein sources of foods: R * Differences between types of fats and role in diet (mono on saturated fat fatty acids, saturated fatty acids, trans fats): R * Food sources of sodium in salt and healthy modifications for heart health in kidney health: R V R/V * Vitamins and minerals: R V N/R * Healthy plate method concept: R V N/R * Physical activity: Benefits a precaution: R V N/R * Hypoglycemia protocol (rule of 15): R * Dietary prevention of Hyperglycemia: R * READ Food label : REviewed, Verbalizes Patient Instructions: Work on having 3-4 small meals throughout the day consisting of 45 g of carbs and lean protein foods Choose beverages without sugar - see list of options see list of options consisting of 45 g carb (example 1 cup of food starches, 1 1/2 cup of fruit - combine with lean protein foods) see list of meal ideas Coding Level of Care Code Nutr Indiv Subseq (80032) Diagnoses Diabetes mellitus type 2 with complications E11.8 Time Spent (min) 25
[2025-02-04 09:39] VITALS: BMI 45.0
--- OUTSIDE RECORDS SUMMARY | 2025-02-04 10:50 | XMS_ITS | Data Portability ---
Author Organization [place] - [facility], Allergy Address [address] [address] Care Team Providers Care Dairy Farmworker Name Role Phone PAZ CALDERON Primary Care Provider [phone] Assessment Encounter Date Assessment Date Assessment LastModified by Organization Details LastModified Time 12/18/2024 12/18/2024 44-year-old female with insulin-depende nt diabetes, Chiari malformation, benign intracranial hypertension, migraines on Botox, presents today for evaluation primarily of dizziness with symptoms of imbalance, room spinning vertigo and tinnitus. She has had multiple imaging studies as noted in the HPI. Audiometric testing today is normal. [place] is negative for any nystagmus. She does very well with Fukuda step testing. We discussed she has many risk factors for the dizziness. I would continue physical therapy and treatment of her migrainous vertigo. She also notes dysphagia and choking. Tonsils are absent. She has not had any specific swallow studies. I recommended modified barium swallow. We can follow-up thereafter with plan for laryngoscopy depending on findings. [email or web address] Not available 12/27/2024 13:16:37 Plan of Treatment Reminders Order Date Submit Date Provider Last Modified By Organization Details Last Modified Time Details Appointments Establis [facility] 15 2024 09:00A M JOSELO MELTON MD Not available Not available Not available Lab None recorded . Referral None recorded . Procedures None recorded . Surgeries None recorded . Imaging [place], modified barium swallow study 2024 025 [facility] (Imaging), [address] [place] [address], [address], 12/25/2024 09:56:43 Medication Orders None recorded . Patient TargetsNo targets recorded. Patient InstructionsNo instructions recorded. Reason for Referral None Reported. Results Created Date Observation Date Name Description Value Unit Range Abnormal Flag Note LastModifiedBy Organization Detail LastModifiedTime 12/18/19 25 audio gram No observ ation record ed. BARCODE Not Available 2024 12:00:53 Result Notes None recorded. Problems Name Problem SNOMED Code Status Onset Date Resolution Date Notes Provider Name and Address Organization Details Recorded Time Bilateral tinnitus 5813536545853 Active [address] [place], ROSEMARIE-A [address], [place], [address], [facility] - [facility] 10:38:56 Chiari malformatio n 973125704 Active [address] [place], ROSEMARIE-A [address] [facility] [address], [place], [address], [facility] - [facility] [place] 5 10:39:04 Vertigo 100742349 Active [address] [place], CCC-A [address], [place], [address], [facility] - [facility] 10:39:30 Oropharynge al dysphagia 95708646 Active 2024 JOSELO MELTON MD [address] [facility] [address], [place], [address], [facility] - [facility] 11:10:35 Problem Notes None recorded. Procedures Surgical History Date Name Laterality Status Provider Name and Address Organization Details Recorded Time 12/18/19 25 Air & Speech Audio with Tymps (14347, 11913 & 38916) completed [address] ST [place], CCC-A [address], [place], [address], [facility] - [facility] 12/18/2024 10:39:42 12/18/19 25 OAE (distortion product, [facility] - [address]) [address] [place], CCC-A 100 [facility] [address], [place], [address], [place] - [facility] 12/18/2024 10:39:55 Imaging Results Imaging Date Name Status LastModified by Organiz ation Details LastModified Time 12/18/2024 audiogram completed BARCODE Information no t available 12/18/2024 12:00:53 Procedure Notes None recorded. Medical Equipment None Reported. Allergies Allergen ID Allergen Name Allergen Category Reaction Reaction Severity Criticality Documentation Date Start Date Code Code System Note Provider Name and Address Organization Details Recorded Time 308604 heparin medicatio n Not available Not available Not available 12/18/2024 5224 RxNorm Latonia haile [place] - [facility] 10:53:11 Medications Name Sig Start Date Stop Date Status Note LastModified by Organization Details LastModified Time albuterol sulfate 2.5 mg/3 mL (0.083 %) solution for nebulizatio n active Not Available Not Available Not Available acetazolami de ER 500 mg capsule,ext ended release 2024 active Not Available Not Available Not Avai lable prednisone 20 mg tablet ON DAYS 1-3 TAKE 2 TABLETS WITH BREAKFAST . DAYS 4-6 TAKE 1 TABLET WITH BREAKFAST . DAYS 7-10 TAKE 0.5 TABLET WITH BREAKFAST . 12/18 completed Not Available Not Available Not Available amitriptyli ne 25 mg tablet TAKE 1 TABLET BY MOUTH DAILY AT BEDTIME 12/18 completed Not Available Not Available Not Available magnesium oxide 400 mg (241.3 mg magnesium) tablet TAKE 1 TABLET BY MOUTH EVERY NIGHT AT BEDTIME. MAY HOLD FOR LOOSE STOOLS 12/18 completed Not Available Not Available Not Available metoclopram antoine 5 mg tablet active Not Available Not Available Not Available baclofen 10 mg tablet active Not Available Not Available No t Available indomethaci n 25 mg capsule TAKE 1 CAPSULE BY MOUTH THREE TIMES DAILY WITH FOOD OR MILK active Not Available Not Available No t Available furosemide 20 mg tablet TAKE 1 TABLET BY MOUTH DAILY 12/18 completed Not Available Not Available Not Available propranolol 20 mg tablet 2024 active Not Available Not Available Not Avai lable Vitamin B-1 100 mg tablet TAKE 1 TABLET BY MOUTH ONCE DAILY active Not Available Not Available No t Available ondansetron 4 mg disintegrat ing tablet active Not Available Not Available N ot Available Ventolin HFA 90 mcg/actuati on aerosol inhaler INHALE 2 PUFFS BY MOUTH EVERY 4 HOURS NEEDED active Not Available Not Available No t Available duloxetine 30 mg capsule,del ayed release 12/18 completed Not Available Not Available Not Available duloxetine 60 mg capsule,del ayed release active Not Available Not Available Not Available cholecalcif satish (vitamin D3) 1,250 mcg (50,000 unit) capsule TAKE 1 CAPSULE BY MOUTH ONCE A WEEK 12/18 completed Not Available Not Available Not Available Lantus Solostar U-100 Insulin 100 unit/mL (3 mL) subcutaneou s pen 12/18 completed Not Available Not Available Not Available Easy Touch 29 gauge x 1/2 needle active Not Available Not Available Not Available Botox 200 unit injection 12/18 completed Not Available Not Available Not Available butalbital- acetaminoph en-caffeine 50 mg-300 mg-40 mg capsule TAKE 1 CAPSULE BY MOUTH EVERY 8 HOURS NEEDED FOR HEADACHE 12/18 completed Not Available Not Available Not Available Invokana 100 mg tablet 12/18 completed Not Available Not Available Not Available Invokana 300 mg tablet active Not Available Not Available Not Available Breo Ellipta 200 mcg-25 mcg/dose powder for inhalation 12/18 completed Not Available Not Available Not Available riboflavin (vitamin B2) 400 mg tablet TAKE 1 TABLET BY MOUTH DAILY 12/18 completed Not Available Not Available Not Available [facility] ODT 75 mg disintegrat ing tablet DISSOLVE ONE TABLET BY MOUTH ONCE NEEDED FOR MIGRAINE HEADACHES . MAX DAILY DOSE 1 PER DAY 12/18 completed Not Available Not Available Not Available Dupixent 300 mg/2 mL subcutaneou s pen injector active Not Available Not Available Not Available Qulipta 60 mg tablet TAKE 1 TABLET BY MOUTH DAILY 12/18 completed Not Available Not Available Not Available Mounjaro 7.5 mg/0.5 mL subcutaneou s pen injector ADMINISTE R 7.5 MG UNDER THE SKIN 1 TIME A WEEK 12/18 completed Not Available Not Available Not Available Mounjaro 12.5 mg/0.5 mL subcutaneou s pen injector ADMINISTE R 12.5 MG UNDER THE SKIN 1 TIME A WEEK active Not Available Not Available No t Available FreeStyle Zeynep 3 Sensor device USE DIRECTED FOR DIABETES. CHANGE EVERY 14 DAYS active Not Available Not Available No t Available Vitals Date Recorded Body height Body mass index (BMI) Body weight Provider Name and Address Organization Details Last Updated DateTime 12/18/2024 149.86 cm 44.4 kg/m2 43911.32 g Latonia John [place] - [facility] 12/18/2024 10:46:07 Social History None recorded. Functional Status None recorded. Mental Status None recorded. Family History Nothing Reported. Medical History Condition Response Depression Y Anxiety Y Migraines Y Diabetes Y Asthma Y Sleep Disorder Y Gynecological HistoryNo gynecological history recorded. Obstetrics History GPAL:G 0 P 0 0 0 0 Past Encounters Encounter ID Performer Location Encounter Start Date Encounter Closed Date Diagnosis/Indication Diagnosis SNOMED-CT Code Diagnosis ICD10 Code Diagnosis Note [id number] JOSELO MELTON MD [facility] [address] [address] 12/18/2024 09:54:35 12/18/2024 11:14:35 Bilateral tinnitus 6231983969 102 H93.13 Audiologic al evaluation results: Right ear: {{Normal* Normal through 2 kHz Mild M oderate Mo derately-s evere Joyce re Profoun d}} {{hearing* sloping to a mild slopi ng to a moderate s loping to moderately severe slo ping to severe slo ping to profound f lat high frequency low frequency mid frequency cookie bite marcus curve}} {{with* se nsorineura l hearing loss with condu ctive hearing loss with mixed hearing loss with}} {{excellen t* good fa ir poor no measurable }} word recognitio n. Left ear: {{Normal* Normal through 2 kHz Mild M oderate Mo derately-s evere Joyce re Profoun d}} {{hearing* sloping to a mild slopi ng to a moderate s loping to moderately severe slo ping to severe slo ping to profound f lat high frequency low frequency mid frequency cookie bite marcus curve}} {{with* se nsorineura l hearing loss with condu ctive hearing loss with mixed hearing loss with}} {{excellen t* good fa ir poor no measurable }} word recognitio n. Tympanomet ry: Right Ear:{{Type A* Type As Type Ad Type C Type C, shallow & rounded Ty pe B Type B with large volume Cou ld not maintain a hermetic seal}} Left Ear:{{Type A* Type As Type Ad Type C Type C, shallow & rounded Ty pe B Type B with large volume Cou ld not maintain a hermetic seal}} Distortion Product Otoacousti c Emission Testing Results: Right Ear:Normal at 1.5, 2, 3, 4, 5, 6, 7, 8, 9, 10, 11kHz; absent at 12 kHz. Left Ear:Normal at 1.5, 2, 3, 4, 5, 6, 7, 8, 9 kHz; absent at 10, 11, and 12 kHz. The presence of a normal otoacousti c emission is consistent with normal outer hair cell function at the test frequency. Chiari malformation 2531 12190 Q07.00 Vertigo 164330870 R42 Oropharyng eal dysphagia 48724284 R13.12 Health Concerns Section Related Observation LastModified by Organization Detai ls LastModified Time None Recorded Concern Status LastModified by Organization Details LastModified Time None Recorded Advance Directives Directive None Recorded Payers Encounter Date Sequence Insurance Name Policy Number Policy Cowan Covered Member ID Cowan Member ID Guarantor Name 12/18/2024 1 [facility] - HEALTH NET PLAN (MEDICAID HMO) FRANKI Escobedo [id number] Susan Escobedo Notes Date Note Type Note Provider Name and Address Organization Details Recorded Time 5 text/html 44 yo F with dysphagia and dizziness. trouble swallowing for yearschoking on food that she earsno testing for dysphagiano need for Heimlichhas had bronchitis, no pneumoniaCan't eat noodles, chicken, steak Tinnitus for yearsDizziness since 2022 gets imbalance, room spinning, poor balance (more than spinning)A couple small fallsNo consistencyMigraines 2022 since then dizzy, tinnitus, blurry vision,Has had multiple eye examsAIC 8.1 BIH pressure [address] scan of her head in May 2024 showing no evidence of acute intracranial hemorrhage or edematous territorial infarction and cerebellar tonsillar ectopia similar to 2019, MR of the cervical spine in January 2024 showing no high-grade spinal canal stenosis but up to moderate bilateral neural foraminal stenosis at C4-C5. MRA of the head in September 2023 was normal MRI of the head in June 2023 showed borderline low cerebellar tonsils, a few scattered foci of nonspecific T2 signal abnormality Seen at [facility], migrainous vertigo, on botox, trial with dry needling, myofascial release, cuppingLoops for the ears due to sound sensitivity JOSELO MELTON MD [address] [place] [address], [phone], [facility] - [facility] 12/27/2024 13:17:13 OBGyn Episode No OBEpisode recorded.
--- OUTSIDE RECORDS SUMMARY | 2025-02-04 10:50 | XMS_ITS | Clinical Summary ---
Author Organization [employer] [facility] ity Address [address] [place] [address] Care Team Providers Care Wheel Alignment Mechanic Name Role Phone Nicola Spears MD Primary Care Provider [phone] Surgical History Surgery Date Site/Laterality Comments CARPAL TUNNEL RELEASE PROCEDURE: [place] NEUROPLASTY &/TRANSPOS MEDIAN NRV CARPAL TUNNE; COMMENT: bilateral TONSILLECTOMY PROCEDURE: HISTORICAL TONSILLECTOMY COLONOSCOPY 05/01/2018 PROCEDURE: OUTSIDE COLONOSCOPY; COMMENT: diminutive tubular adenoma polyp. random colonic bx normal. KNEE ARTHROSCOPY W/ MENISCAL REPAIR 12/11/2019 PROCEDURE: [place] ARTHROSCOPY KNEE W/MENISCUS RPR MEDIAL/LATERAL; COMMENT: root repair; [facility] Medical History Medical History Date [...] obesity wit h BMI of 45.0-49.9, adult ([facility]) Tubular adenoma of colon 05/15/2018 DX:Tubu lar adenoma of colon Irritable bowel syndrome wit h diarrhea 08/05/2018 DX:Irritable bowel syndrome with diarrhea Moderate persistent asthma w ith acute exacerbation 01/05/2019 DX:Moderate persistent asthm a with acute exacerbation DM (diabetes mellitus), type 2 with renal complications ([facility]/HCC V24, [facility]/HCC V28) 04/29/2018 DX:DM (diabetes mellitus), t ype 2 with renal complications ([facility]) Family History Medical History Relation Name Comments [...] age to complete this topic Care Teams Wheel Alignment Mechanic Relationship Specialty Start Date End Date Nicola Spears MD [address] [place] [address] PCP - General Internal Medicine 10/27/21
== END 2025-02-04 10:13 | disposition home or self-care (01) ==
LOC: HO.ENCR 09:29
PROVIDERS: PCP Nurse Practitioner Family; Visit Provider Dietitian, Registered
DX: E11.8 Type 2 diabetes mellitus with unspecified complications (principal)

== ENCOUNTER → 2025-02-04 09:28 | Outpatient (BNVA) | payer OTHER, SELFPAY | PROVIDERS: PCP Nurse Practitioner Family; Visit Provider Dietitian, Registered | DX: E11.8 Type 2 diabetes mellitus with unspecified complications (principal); Z71.3 Dietary counseling and surveillance | CPT/HCPCS: 97803 ==

== ENCOUNTER 2025-02-04 11:37 | Outpatient (REF) | payer OTHER, SELFPAY ==
--- OUTSIDE RECORDS SUMMARY | 2025-02-04 14:30 | XMS_ITS | Data Portability ---
Author Organization [facility] [employer] Address [address] [place] [address] [place] [address] Care Team Providers Care Cleaning Validation Consultant Name Role Phone JAZMYNE LINDO Referring Provider [phone] JAZMYNE LINDO Primary Care Provider Assessment Encounter [...] likely that the CSF assays sent by [facility] after September 10, 2023 lumbar puncture [...] find: Ophthalmology note, CSF results sent after [facility] Follow up after mrossen Not [...] likely that the CSF assays sent by [facility] after September 10, 2023 lumbar puncture [...] cervical spine without contrast February 13, 2024 [facility] radiology: Suboptimal evaluation secondary to motion. Within this constraint: The cervical spinal cord is normal in signal intensity. There is no high-grade central spinal canal stenosis. Up to moderate bilateral neuroforaminal stenosis at C4-5. MRV brain with and without IV contrast, [facility], compared to brain MRI December 17, 2018 and MR a head October 01, 2023 [facility]: No cerebral venous thrombosis, unremarkable study more generally. MRA head without contrast [facility] October 02, 2023: Normal. CSFNov2022 clear, colorless, WBC = 0, RBC = 12/8 [2 #4 presumably], glucose 106, total protein 25.1 serum: September 10 2023 glucose 210 test negative Lumbar puncture note [facility], September 10, 2023, for chief complaint [...] ondansetron, rizatriptan PLAN Susan [facility] March 24, 2024 She wants to think about whether she wants to continue working with me. She will call, and a week she thinks, if she does, and we agree that at that point I would look at [facility] interventional radiology and have her [...] By Organization Details Last Modified Time 01/27/2024 [id number] Discussion acros s issues of diagnoses and management and same day associated chart review and management greater than 50% greater than 60 minutes [email or web address] Not available 01/27/2024 14:30:31 03/24/2024 [id number] PREVIOUS DISCUSSION >>>>>>>>January 27, 2024 initial neurology [...] ast No observ ation record ed. [email or web address] [facility] [address] [place], [address], 03/25/2024 16:03:10 Result Notes None recorded. Procedures Surgical History Date Name Laterality Status Provider Name and Address Organization Details Recorded Time 03/24/2024 DATA REVIEW completed Ilya Mckeon MD [address] [place], [place] [address], [address], [facility] 03/24/2024 10:16:01 01/27/2024 DATA REVIEW completed Ilya Mckeon MD [address] [place], [place] [address], [address], [facility] 01/27/2024 14:11:59 Imaging Results Imaging Date Name Status [facility]Modified by [facility] Details LastModified Time 07/06/2023 MRI, brain, w/wo [...] MRI, cervical spine, w/o contrast completed [email or web address] [facility] [address] [facility], [place], [address], 03/25/2024 16:03:10 Procedure Notes None recorded. Medical Equipment None Reported. Allergies Allergen ID Allergen Name Allergen Category Reaction Reaction Severity Criticality Documentation Date Start Date Code Code System Note Provider Name and Address Organization Details Recorded Time 3895 heparin medicatio n Not available Not available Not available 01/27/2024 5224 RxNorm Eli Vegas [facility] 13:24:25 Medications Name Sig Start Date [...] Not Available Not Available No t Available [employer] Best Zeynep 3 Sensor device USE DIRECTED FOR DIABETES. CHANGE EVERY 14 DAYS active Not Available Not Available No t Available Vitals Date Recorded Body height Body mass index (BMI) Body weight Respiratory rate Provider Name and Address Organization Details Last Updated DateTime 01/27/2024 149.86 cm 46 kg/m2 410934.06 g 12 /min Eli Vegas [facility] 01/27/2024 13:24:17 Social History Question Answer Notes LastModified by Organizat ion Details LastModified Time Tobacco Smoking Status Never Smoker Eli haile [facility] 01/27/2024 13:26:01 What Is Your Level Of Alcohol Consumption? None Information not available 01/27/2024 What Is Your Level Of Caffeine Consumption? Moderate 1 Cup Daily Information not available 01/27/2024 What Is The Highest Grade Or Level Of School You Have Completed Or The Highest Degree You Have Received? [id number] Information not available 01/27/2024 Which Of Your [...] N Vitamin B12 deficiency N Heart Attack (ND) N Spine Problems N Obstructive Sleep Apnea [...] SNOMED-CT Code Diagnosis ICD10 Code Diagnosis Note [id number] Ilya Mckeon MD [facility] [address] [place] [address] [place] [address] 01/27/2024 12:43:24 01/27/2024 15:32:53 Benign intracranial hypertension 51332168 G93.2 Migraine without aura 56 795957 G43.009 [id number] Ilya Mckeon MD [facility] [address] [place] [address] [place] [address] 03/24/2024 09:45:33 03/24/2024 10:51:41 Benign intracranial hypertension 98806151 G93.2 Migraine without aura 56 763307 G43.009 Health Concerns Section Related Observation LastModified by Organization Detai ls LastModified Time None Recorded Concern Status LastModified by Organization Details LastModified Time None Recorded Advance Directives Directive None Recorded Payers Encounter Date Sequence Insurance Name Policy Number Policy Cowan Covered Member ID Cowan Member ID Guarantor Name 01/27/2024 1 [facility] [id number] Susan Escobedo [id number] Susan Escobedo 03/24/2024 1 [facility] [id number] Susan Escobedo [id number] Susan Escobedo Notes Date Note Type Note Provider Name and Address Organization Details Recorded Time 01/27/2024 text/html She presents for initial neurology consultation for assessment and management of June 26-2022, onset of persistent, dizziness, arm tingling, partially improved slurring, visual blurring, and on June 29 headache, which also persists, all preceded by 2000 [place]She is accompanied by her sister, Gracie.Before June 26, 2023, she rarely got headaches, at most three times a year, and always mild. The only tingling she has ever had has been below her right knee and her right leg since right-sided knee meniscus surgery. She has generally not had visual blurring or speech slurring or dizziness.On 2023 she [place] the [place]. 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
--- OUTSIDE RECORDS SUMMARY | 2025-02-04 14:30 | XMS_ITS | Encounter Summary ---
Author Organization [facility] Address [address] [place] [address] Care Team Providers Care Treatment Plant Operator Name Role Phone Jonna Carvalho MD Primary Care Provider Nicola Soni MD Primary Care Provider Carl Chapa, Pcp Primary Care Provider Jayson jauregui Encounter Details Date Type Department Care Team Description 04/11/2020 Orders Only Adult Medicine [address] [address] Preeti Xiong, Type 2 diabetes mellitus without [...] Bunion documented in this encounter Care Teams Treatment Plant Operator Relationship Specialty Start Date End Date Jonna Carvalho MD PCP - General Internal Medicine 03/31/18 10/26/21 Nicola Spears MD PCP - General Internal Medicine 10/27/21 07/09/23 [facility], Pcp PCP - General Internal Medicine 07/10/23 documented as of this encounter
--- OUTSIDE RECORDS SUMMARY | 2025-02-04 14:30 | XMS_ITS | Encounter Summary ---
Author Organization [facility] Address [address] [place] [address] Care Team Providers Care Robotics Testing Technician Name Role Phone Jonna Carvalho MD Primary Care Provider Nicola Soni MD Primary Care Provider Carl Chapa, Pcp Primary Care Provider Jayson jauregui Encounter Details Date Type Department Care Team Description 2018 Senior Product Engineer Report Medical Records [address] [place] [address] Jennie Whitaker, RD, LDN [address] [address] Social History Tobacco Use Types Packs/Day Years [...] on filedocumented in this encounter Care Teams Robotics Testing Technician Relationship Specialty Start Date End Date Jonna Carvalho MD PCP - General Internal Medicine 03/31/18 10/26/21 Nicola Spears MD PCP - General Internal Medicine 10/27/21 07/09/23 [facility], Pcp PCP - General Internal Medicine 07/10/23 documented as of this encounter
--- OUTSIDE RECORDS SUMMARY | 2025-02-04 14:30 | XMS_ITS | Encounter Summary ---
Author Organization [facility] Address [address] [place] [address] Care Team Providers Care Heddler Tier Name Role Phone Jonna Carvalho MD Primary Care Provider Nicola Soni MD Primary Care Provider Carl Chapa, Pcp Primary Care Provider Jayson jauregui Encounter Details Date Type Department Care Team Description 08/25/2020 Telephone Adult Medicine [address] [address] Jonna Carvalho MD Social History Tobacco Use [...] on filedocumented in this encounter Care Teams Heddler Tier Relationship Specialty Start Date End Date Jonna Carvalho MD PCP - General Internal Medicine 03/31/18 10/26/21 Nicola Spears MD PCP - General Internal Medicine 10/27/21 07/09/23 [facility], Sigrid PCP - General Internal Medicine 07/10/23 documented as of this encounter
--- OUTSIDE RECORDS SUMMARY | 2025-02-04 14:30 | XMS_ITS | Encounter Summary ---
Author Organization [facility] Address [address] [place] [address] Care Team Providers Care Stave Block Roller Name Role Phone Jonna Carvalho MD Primary Care Provider Nicola Soni MD Primary Care Provider Carl Chapa, Pcp Primary Care Provider Jayson jauregui Encounter Details Date Type Department Care Team Description 04/21/2018 Orders Only Adult Medicine [address] [address] Jonna Carvalho MD Social History Tobacco Use [...] on filedocumented in this encounter Care Teams Stave Block Roller Relationship Specialty Start Date End Date Jonna Carvalho MD PCP - General Internal Medicine 03/31/18 10/26/21 Nicola Spears MD PCP - General Internal Medicine 10/27/21 07/09/23 [facility], Pcp PCP - General Internal Medicine 07/10/23 documented as of this encounter
--- OUTSIDE RECORDS SUMMARY | 2025-02-04 14:30 | XMS_ITS | Encounter Summary ---
Author Organization [facility] Address [address] [place] [address] Care Team Providers Care Machine Maintenance Technician Name Role Phone Jonna Carvalho MD Primary Care Provider Nicola Soni MD Primary Care Provider Carl Chapa, Pcp Primary Care Provider Jayson jauregui Encounter Details Date Type Department Care Team Description 09/22/2019 Old Medical Records Medical Records [address] [place] [address] Abstract, Provider Social History Tobacco Use Types [...] on filedocumented in this encounter Care Teams Machine Maintenance Technician Relationship Specialty Start Date End Date Jonna Carvalho MD PCP - General Internal Medicine 03/31/18 10/26/21 Nicola Spears MD PCP - General Internal Medicine 10/27/21 07/09/23 [facility], Pcp PCP - General Internal Medicine 07/10/23 documented as of this encounter
--- OUTSIDE RECORDS SUMMARY | 2025-02-04 14:30 | XMS_ITS | Clinical Summary ---
Author Organization [facility] Address [address] [place] [address] Care Team Providers Care Inventory Specialist Name Role Phone Nicola Spears MD Primary Care Provider [phone] Surgical History Surgery Date Site/Laterality Comments CARPAL TUNNEL RELEASE PROCEDURE: [place] NEUROPLASTY &/TRANSPOS MEDIAN NRV CARPAL TUNNE; COMMENT: bilateral TONSILLECTOMY PROCEDURE: HISTORICAL TONSILLECTOMY COLONOSCOPY 05/01/2018 PROCEDURE: OUTSIDE COLONOSCOPY; COMMENT: diminutive tubular adenoma polyp. random colonic bx normal. KNEE ARTHROSCOPY W/ MENISCAL REPAIR 12/11/2019 PROCEDURE: [place] ARTHROSCOPY KNEE W/MENISCUS RPR MEDIAL/LATERAL; COMMENT: root repair; [facility] Medical History Medical History Date [...] obesity wit h BMI of 45.0-49.9, adult ([facility]) Tubular adenoma of colon 05/15/2018 DX:Tubu lar adenoma of colon Irritable bowel syndrome wit h diarrhea 08/05/2018 DX:Irritable bowel syndrome with diarrhea Moderate persistent asthma w ith acute exacerbation 01/05/2019 DX:Moderate persistent asthm a with acute exacerbation DM (diabetes mellitus), type 2 with renal complications ([facility] V24, [facility] V28) 04/29/2018 DX:DM (diabetes mellitus), t ype 2 with renal complications ([facility]) Family History Medical History Relation Name Comments [...] age to complete this topic Care Teams Inventory Specialist Relationship Specialty Start Date End Date Nicola Spears MD [address] [place] [address] PCP - General Internal Medicine 10/27/21
--- OUTSIDE RECORDS SUMMARY | 2025-02-04 14:30 | XMS_ITS | Encounter Summary ---
Author Organization [facility] Address [address] [place] [address] Care Team Providers Care Social Worker Psychiatric Name Role Phone Jonna Carvalho MD Primary Care Provider Nicola Soni MD Primary Care Provider Carl Chapa, Pcp Primary Care Provider Jayson jauregui Encounter Details Date Type Department Care Team Description 01/24/2021 Pt. Non Urgent Medic al Question Adult Medicine [address] [address] Jonna Carvalho MD Social History Tobacco Use [...] 11:44 AM EDT Subject: Covid Hi Dr Carvalho, Just wanted to inform you that I have tested positive for covid today. Susan documented in this encounter Plan of Treatment Not on file documented as of this encounter Visit Diagnoses Not on filedocumented in this encounter Care Teams Social Worker Psychiatric Relationship Specialty Start Date End Date Jonna Carvalho MD PCP - General Internal Medicine 03/31/18 10/26/21 Nicola Spears MD PCP - General Internal Medicine 10/27/21 07/09/23 [facility], Pcp PCP - General Internal Medicine 07/10/23 documented as of this encounter
--- OUTSIDE RECORDS SUMMARY | 2025-02-04 14:30 | XMS_ITS | Encounter Summary ---
Author Organization [facility] Address [address] [place] [address] Care Team Providers Care Flatwork Washer Name Role Phone Jonna Carvalho MD Primary Care Provider Nicola Soni MD Primary Care Provider Carl Chapa, Pcp Primary Care Provider Jayson jauregui Encounter Details Date Type Department Care Team Description 01/06/2019 Actuarial Technician Report Medical Records [address] [place], [place] [id number] [place] [address] Diabetes Education [address] [facility] [address] [place] [address] Social History Tobacco Use Types Packs/Day Years [...] on filedocumented in this encounter Care Teams Flatwork Washer Relationship Specialty Start Date End Date Jonna Carvalho MD PCP - General Internal Medicine 03/31/18 10/26/21 Nicola Spears MD PCP - General Internal Medicine 10/27/21 07/09/23 [facility], Pcp PCP - General Internal Medicine 07/10/23 documented as of this encounter
--- OUTSIDE RECORDS SUMMARY | 2025-02-04 14:30 | XMS_ITS | Encounter Summary ---
Author Organization [facility] Address [address] [place] [address] Care Team Providers Care Grease Worker Name Role Phone Jonna Carvalho MD Primary Care Provider Nicola Soni MD Primary Care Provider Carl Chapa, Pcp Primary Care Provider [facility] Reason for Visit * Reason Onset Date Comments Prior Authorization 04/21/2018 Encounter Details Date Type Department Care Team Description 04/21/2018 Telephone Gastroenterology - [address] [address] Griffin Saucedo PA-C Prior Authorization Social History [...] Aga Viverosrar - 04/21/2018 11:23 AM EDT [facility] auth required 04/21/18 - 04/21/19 [id number] To be done at [facility] * Telephone Encounter - Renetta Winter - 04/21/2018 10:39 AM EDT Pre-auth needed Patient is scheduled for a colonoscopy on 05-01-18 Patients insurance: Payor: [facility] / Plan: PPO $20 [id number] / Product Type: PPO [id number] Appointment is with Ruby Rosales MD Code to process pre-auth for: [id number] Location of procedure: [facility] documented in this encounter Plan of Treatment Not on file documented as of this encounter Visit Diagnoses Not on filedocumented in this encounter Care Teams Grease Worker Relationship Specialty Start Date End Date Jonna Carvalho MD PCP - General Internal Medicine 03/31/18 10/26/21 Nicola Spears MD PCP - General Internal Medicine 10/27/21 07/09/23 [facility], Pcp PCP - General Internal Medicine 07/10/23 documented as of this encounter
--- OUTSIDE RECORDS SUMMARY | 2025-02-04 14:30 | XMS_ITS | Encounter Summary ---
Author Organization [facility] Address [address] [place] [address] Care Team Providers Care Nursing Officer Name Role Phone Jonna Carvalho MD Primary Care Provider Nicola Soni MD Primary Care Provider Carl Chapa, Pcp Primary Care Provider Jayson jauregui Encounter Details Date Type Department Care Team Description 01/06/2020 Telephone Pulmonology - [place] [address] [facility] [address] [place] [address] Alli Santacruz MD [address] [facility] [address] [place] [address] Social History Tobacco Use Types [...] on filedocumented in this encounter Care Teams Nursing Officer Relationship Specialty Start Date End Date Jonna Carvalho MD PCP - General Internal Medicine 03/31/18 10/26/21 Nicola Spears MD PCP - General Internal Medicine 10/27/21 07/09/23 [facility], Pcp PCP - General Internal Medicine 07/10/23 documented as of this encounter
--- OUTSIDE RECORDS SUMMARY | 2025-02-04 14:30 | XMS_ITS | Encounter Summary ---
Author Organization [facility] Address [address] [place] [address] Care Team Providers Care Welding Process Specialist Name Role Phone Jonna Carvalho MD Primary Care Provider Nicola Soni MD Primary Care Provider Carl Chapa, Pcp Primary Care Provider Jayson jauregui Encounter Details Date Type Department Care Team Description 11/22/2018 Night Triage Doc Medical Records [address] [place] [address] Abstract, Provider Social History Tobacco Use Types [...] on filedocumented in this encounter Care Teams Welding Process Specialist Relationship Specialty Start Date End Date Jonna Carvalho MD PCP - General Internal Medicine 03/31/18 10/26/21 Nicola Spears MD PCP - General Internal Medicine 10/27/21 07/09/23 [facility] Pcp PCP - General Internal Medicine 07/10/23 documented as of this encounter
--- OUTSIDE RECORDS SUMMARY | 2025-02-04 14:30 | XMS_ITS | Encounter Summary ---
Author Organization [facility] Address [address] [place] [address] Care Team Providers Care Revenue Cycle Analyst Name Role Phone Jonna Carvalho MD Primary Care Provider Nicola Soni MD Primary Care Provider Carl Chapa, Pcp Primary Care Provider [facility] e Reason for Visit * Reason Onset Date Comments refill request 01/09/2019 Encounter Details Date Type Department Care Team Description 01/09/2019 Refill Adult Medicine [address] [address] Jonna Carvalho MD refill request Social History [...] MED LIST AND IS IDENTIFIED BELOW): {MED LIST:[id number]) Med name: Freestyle Zeynep Meter Dosage: # of tablets: Local pharmacy with request for 30 -day supply Instructions: Did you check the pharmacy information above?: YES Patients current insurance carrier: Payor: [email or web address] / Plan: PPO $20 [employer] [id number] / Product Type: PPO [id number] documented in this encounter Plan of Treatment Not on file documented as of this encounter Visit Diagnoses Not on filedocumented in this encounter Care Teams Revenue Cycle Analyst Relationship Specialty Start Date End Date Jonna Carvalho MD PCP - General Internal Medicine 03/31/18 10/26/21 Nicola Spears MD PCP - General Internal Medicine 10/27/21 07/09/23 [facility], Pcp PCP - General Internal Medicine 07/10/23 documented as of this encounter
--- OUTSIDE RECORDS SUMMARY | 2025-02-04 14:30 | XMS_ITS | Encounter Summary ---
Author Organization [facility] Address [address] [place] [address] Care Team Providers Care Secretary Of Police Name Role Phone Jonna Carvalho MD Primary Care Provider Nicola Soni MD Primary Care Provider Carl Chapa, Pcp Primary [facility] Reason for Visit * Reason Onset Date Comments medication problems 07/12/2020 Encounter Details Date Type Department Care Team Description 07/12/2020 Telephone Adult Medicine [address] [address] Jonna Carvalho MD medication problems Social History [...] on filedocumented in this encounter Care Teams Secretary Of Police Relationship Specialty Start Date End Date Jonna Carvalho MD PCP - General Internal Medicine 03/31/18 10/26/21 Nicola Spears MD PCP - General Internal Medicine 10/27/21 07/09/23 [facility], Pcp PCP - General Internal Medicine 07/10/23 documented as of this encounter
== END 2025-02-04 11:38 | disposition home or self-care (01) ==
LOC: HO.LNP 11:37
PROVIDERS: Visit Provider Nurse Practitioner Family
DX: Z77.21 Contact with and (suspected) exposure to potentially hazardous body fluids (principal); Z20.9 Contact with and (suspected) exposure to unspecified communicable disease
CPT/HCPCS: 87338

== ENCOUNTER 2025-02-17 08:09 | Outpatient (AMB) | payer OTHER, SELFPAY ==
--- NOTE | 2025-02-17 08:15 | A.OFFPC_ITS ---
Vital Signs 02/17/25 08:22 Height 4 ft 11 in Weight 223 lb BMI 45.0 BP 120/72 Blood Pressure Location Lt brachial Position Sitting Respiration 12 Pulse 88 Pulse Source Pulse Oximeter Temp 97.2 F Temp Source Oral Pulse Oximetry (%) 96 Oxygen Delivery Method Room Air Intake Visit Reasons: complex fu labs 1 week before Intake Note: Follow up on labs Tableau Analyst Required: No Allergies Heparin Analogues [HEPARIN AGENTS] Allergy (Intermediate, Verified 02/17/25 08:17) HIVES, RASH, SEVERE BRUISING dulaglutide [From Trulicity] Allergy (Verified 02/17/25 08:17) Rash Medication List - Last Reconciled 02/17/25 by Madison Travis, OVERHEAD CRANE INSPECTOR-BC acetazolamide ER 500 mg PO DAILY albuterol sulfate 90 mcg/actuation (Ventolin HFA) 2 puffs inhalation QID PRN albuterol sulfate 2.5 mg (3 mL) inhalation Q4-6H PRN baclofen 20 mg (2 x 10 mg) PO BEDTIME 30 days blood-glucose sensor (takokat Zeynep 3 Sensor device) As directed blood-glucose sensor (Accipiter Systems G7 Sensor device) As directed canagliflozin (Invokana) 300 mg PO DAILY cholecalciferol (vitamin D3) 1,250 mcg PO QWEEK clonidine HCl 0.3 mg PO BID duloxetine mg PO DAILY dupilumab (Dupixent) 300 mg (2 mL) subcut Q2W fluticasone furoate-vilanterol 200-25 mcg/dose (Breo Ellipta) 1 inh inhalation DAILY indomethacin 25 mg PO TID 30 days insulin glargine (Lantus Solostar U-100 Insulin) 20 units (0.2 mL) subcut BID magnesium L-threonate mg PO metoclopramide HCl 5 - 10 mg (1 - 2 x 5 mg) PO Q4-6H 30 days MDD 4 tabs onabotulinumtoxinA (Botox) 200 units IM ONCE 12 weeks ondansetron 4 - 8 mg (1 - 2 x 4 mg) PO Q6-8H PRN 30 days pen needle, diabetic (Ultra-Thin II Insulin Pen [place]) As directed propranolol mg PO 3XD riboflavin (vitamin B2) 400 mg PO DAILY 30 days rimegepant (Nurtec ODT) 75 mg PO Q OTHER DAY sertraline 50 mg PO DAILY thiamine HCl (vitamin B1) 50 mg PO DAILY tirzepatide (Mounjaro) 12.5 mg (0.5 mL) subcut QWEEK Tobacco use date assessed: 02/17/25 Dental Screening Dental Screen Date: 02/17/25 Did you have a dental visit in the last 12 months?: Yes Did you have a dental problem in the last 6 months where you did not have access to dental care?: No Was dental information given to patient?: Patient has dentist HPI HPI Comments History of Present Illness Details 44 year old female with mild intermitten t asthma, DM 2, history of COVID-19, DVT, Idiopathic intracranial with chiari malformation HTN, migraine headaches, IBS, Sleep apnea, Vit D def Status post carpal tunnel repair, tonsillectomy, R knee surgery 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 Colon ? 09/2024 Mammo WNL ? PAP due for pap, has IUD placed 3 years ago. ? Tdap 2017, declined flu 08/21/24 [facility] exam nega tive for DM retinopathy bilat; Glaucoma suspect. Exam 10/2024 reports WNL this was done to eval blurred vision. Specialists: Obgyn first appt December 2024 Neurology [place] [facility] Pulm Ophthalmology: 07/07/24 [facility], DM Eye negative for retinopathy, visit q3mo ENT [place] [facility] [place] appts in Nov History of Present Illness - The patient is a 44-year-old female pr esenting with a routine chronic disease management visit focusing on her type 2 diabetes, with a worsening A1c of 8.8%. Eating worse d/t depression, Stopped taking lantus 10 units BID d/t depression. Taking invokana and Monjauro only. Using CGM - Asthma managed well under pulmonology care, currently using Dupixent; reports significant improvement in inhaler use. - Experiences severe headaches, linked t o migraines and Chiari malformation; under neurology care. - Severe nausea interfering with dietary habits and diabetes management; s uspected linked to Mounjaro. - Has obstructive sleep apnea, cannot to lerate CPAP. - Reports of right knee discomfort post previous meniscus repair, 2019 while living in [place], noting occasional swelling. Would like to see Ortho - Employment affected by medical issues, with ongoing challenges in managing daily living routines. DTA ppw completed at visit today and returned to patient, Idiopathic Intracranial HTN and chronic migraine, lasting > 12 months/lifetime. Results A1c 8.8%, CGM data as below 02/03/25 Laboratory Result Units Range Interpretation Provider Comments Sodium Level 137 mmol/L (135-145) Potassium Level 4.3 mmol/L (3.3-5.1) Chloride Level 104 mmol/L (96-108) Carbon Dioxide Lev el 25 mmol/L (22-29) Anion Gap 12 (12-20) Blood Urea Nitroge n 8 mg/dL (9-16) Low Creatinine 0.69 mg/dL (0.5-1.4) Estimated Creatini ne Clearance Calc Not Reportable Estimat Glomerular Filtration Rate > 60 Fasting Glucose 251 mg/dL (60-99) High Calcium Level 9.3 mg/dL (8.4-10.2) Total Bilirubin 0.7 mg/dL (0.0-1.0) Aspartate Amino Tr ansf (AST/SGOT) 21 U/L (5-31) Alanine Aminotrans ferase (ALT/SGPT) 43 U/L (0-31) High Alkaline Phosphata se 74 U/L (39-117) Total Protein 6.9 g/dL (6.5-8.0) Albumin 4.0 g/dL (3.5-5.0) Physical Exam Awake alert NAD RRR LS dim throughout BLE Neurovasc intact, pain w/ passive and active ROM R knee. No erythema or warmth DM foot exam WNL Tearful when talking about mood Discussion Notes I discussed with the patient her current management of type 2 diabetes and the recent increase in her A1c levels. We reviewed her current medication regimen, including invokana, Lantus, and Mounjaro, and the potential impact of Mounjaro on her persistent nausea. After evaluating options, we decided to hold Mounjaro, as it might contribute to her nausea, and to start glyburide to assist with glucose control. I emphasized the importance of resuming her Lantus insulin injections and advised on monitoring her blood glucose levels closely. We explored alternative weight management programs at [facility] and the role of lifestyle modifications. Additionally, I reviewed her migraines, current headache severity, and management strategy. I scheduled a follow-up in six weeks to assess her response to medication changes and any improvement in symptoms. The referral to orthopedics was agreed upon to address the right knee issue, considering her history of meniscal surgery. We discussed the impact of her health conditions on her work capabilities, acknowledging the need for ongoing support. Assessment and Plan 1. Type 2 Diabetes Mellitus The patient's A1c elevated to 8.8%, indicating poor glucose control. Glyburide initiation at 5 mg twice daily was planned, stopping Mounjaro to reduce nausea. Insulin Lantus regimen continues unchanged along w invokana 2. Asthma Management remains stable under pulmonology with Dupixent, with decreased inhaler need. No change needed currently. 3. Migraine Headaches Ongoing significant headaches, managed by neurology; maintain current follow-up with specialist care for migraines and Chiari complications. 4. Hypertension No management changes needed, continued monitoring assumed. 5. Obstructive Sleep Apnea cannot tolerate cPAP . 6. Severe Nausea Suspected linked to Mounjaro, medication holding planned and nausea monitoring. 7. Right Knee Pain Orthopedics referral for postoperative swelling post meniscal surgery is to be arranged. 8. Vitamin D Deficiency Continued supplementation assumed, with no particular discussions on modifications. Patient Instructions - Start taking glyburide 5 mg twice christiano y with meals. - Resume Lantus insulin injections as pr eviously, 10 units twice daily. - Monitor blood glucose levels closely a nd report any low blood glucose symptoms. - Hold Mounjaro and observe if nausea im proves. - Continue with asthma medications and m onitor symptoms. - Take necessary actions as indicated on migraines and follow up with neurology. - Look for referral from orthopedics for right knee evaluation. - Do the recommended swimming exercises as possible, avoiding overexertion. - Explore weight management programs at [facility] if needed. - Schedule a follow-up appointment for s ix weeks from now. Consent Patient was informed and verbally consented to the use of an ambient scribe for clinic note documentation during this visit. Total time spent caring for the patient today was 50 minutes. This includes time spent before the visit reviewing the chart, time spent during the visit, and time spent after the visit on documentation, reviewing laboratory results, diagnostic imaging, medications, performing a medically necessary evaluation, counseling on diagnoses, care coordination, ordering appropriate tests, ordering appropriate medications, review of tests performed by other providers, reporting test results with the patient, communication with other healthcare providers. [facility] Medical History Asthma Sleep apnea Hypertension IBS (irritable bowel syndrome) DVT (deep venous thrombosis) COVID-19 Diabetes Surgical History [place] teeth extracted Hx of carpal tunnel repair Hx of tonsillectomy Hx of knee surgery Family History Maternal Grandfather Substance abuse Heart attack Maternal Grandmother Stomach cancer Father Diabetes Asthma Mother Asthma Social History Household Members: Family Housing: House Do you presently have visiting nurse or other home services: No 75 years or older and lives alone: No Alcohol intake: never Patient Tobacco Use Status: Never used Tobacco e-Cigarette/Vaping Use: Never Used Advance Directives Date on File: 06/29/22 service: No Current occupational status: employed Cognitive needs: Yes Hearing needs: Yes Vision needs: Yes (wear glasses) Questionnaire PHQ-9 Over the last 2 weeks, how often have you been bothered by any of the following problems? 1. Little interest or pleasure in doing things: not at all 2. Feeling down, depressed, or hopeless: not at all 3. Trouble falling or staying asleep, or sleeping too much: not at all 4. Feeling tired or having little energy: not at all 5. Poor appetite or overeating: not at all 6. Feeling bad about yourself - or that you are a failure or have let yourself or your family down: not at all 7. Trouble concentrating on things, such as reading the newspaper or watching television: not at all 8. Moving or speaking so slowly that other people could have noticed. Or the opposite - being so fidgety or restless that you have been moving around a lot more than usual: not at all 9. Thoughts that you would be better off or of hurting yourself in some way: not at all Total score: 0 Depression Screening Interpretation: Negative Depression Screening Done: Yes 35886 - PHQ-9 Billing: Yes Source: Developed by Drs. Aj L. RositaRoxanna blum, Mino Moore and colleagues, with an educational fabricio from [employer]. Thrive Questionnaire Date Thrive assessed: 11/17/24 I am a: Patient What is your living situation today?: I have a steady place to live Within the past 12 months, did the food you bought not last and you didn't have the money to get more?: I choose not to answer this question Within the past 12 months, did you worry whether your food would run out before you got money to buy more?: I choose not to answer this question Do you have trouble paying for medicines?: No Do you have trouble getting transportation to medical appointments?: No Do you have trouble paying your heating and electricity bill?: I choose not to answer this question Do you have trouble taking care of your child, family member or friend?: I choose not to answer this question Do you have trouble with day-to-day activities such as bathing, preparing meals, shopping, managing finances, etc.?: I choose not to answer this question Are you currently unemployed and looking for a job?: I choose not to answer this question Are you interested in more education?: I choose not to answer this question Please select the resources that you would like help with: None Currently or been in a relationship where the following occur: I choose not to answer THRIVE Score: 0 SILVERIO-7 AMB Questionnaire SILVERIO-7 Date SILVERIO - 7 assessed: 02/17/25 Feeling nervous, anxious, or on edge: 0 = Not at all Not being able to stop or control worryin = Not at all Worrying too much about different things: 0 = Not at all Trouble relaxin = Not at all Being so restless that it is hard to sit still: 0 = Not at all Becoming easily annoyed or irritable: 0 = Not at all Feeling afraid as if something awful might happen: 0 = Not at all Total SILVERIO-7 score (0-4 normal; 5-9 mild; 10-14 moderate; 15-21 severe): 0 Source: Developed by Roxanna Lucas, Mino Moore and colleagues, with an educational fabricio from [employer]. SILVERIO-7 Assessment Billing SILVERIO-7 Assessment Tool: SILVERIO-7 Assessment 94856 Physical exam (Primary Care) Vital Signs: Last Vital Signs Temp 97.2 F 02/17/25 08:22 Pulse 88 02/17/25 08:22 Resp 12 02/17/25 08:22 BP 120/72 02/17/25 08:22 Pulse Ox 96 02/17/25 08:22 Oxygen Delivery Method Room Air 02/17/25 08:22 BMI result Body Mass Index 45.0 BMI Assessment/Plan discussion: High BMI High, discussed plan: weight reduction Tobacco/Smoking Status: Tobacco use Status Tobacco use date assessed 02/17/25 02/17/25 08:20 Patient Tobacco Use Status Never used Tobacco 02/17/25 08:15 e-Cigarette/Vaping Use Never Used 02/17/25 08:15 PHQ-9: PHQ-9 Score PHQ-9: Total score 0 02/17/25 08:37 Depression Screening Interpretation: Negative Thrive Assessment: Date of Thrive Assessment Date Thrive assessed 11/17/24 02/17/25 08:15 Currently or been in a relationship where the following occur: I choose not to answer Office Procedures Diabetic Foot Exam Details: NORMAL MONOFILAMENT AND VIBRATORY SENSATION BILAT, + PP, SKIN INTACT G9226 - Diabetic Foot Exam Glucose Monitoring Details Details: 7 DAYS GMI 8.7% TIME IN GOAL > 250 30% 181-250 54% 70-180 16% 90 DAYS GMI 9.8% 01425 - Glucose monitoring, continuous-physician I&R Additional procedure code (CPT) needed Results AMB Hemoglobin A1c 2 AMB Hemoglobin A1c 8.8 % Last Edit by Kesha Shaikh MA on 02/17/25 08:35 Results Reviewed Results Reviewed: Laboratory Last Values Hgb A1c (Clinic) 8.8 % (4.0-6.0) H 02/17/25 08:15 Coding Level of Care Code Est Pt Level 5 (45870) Complex EM visit Add On G2211 Diagnoses Diabetes mellitus type 2 with complications E11.8 Chiari I malformation G93.5 Chronic migraine without aura without status migrainosus, not intractable G43.709 Intractability: not intractable Status migrainosus presence: without status migrainosus SILVERIO (generalized anxiety disorder) F41.1 Type 2 diabetes mellitus with hyperglycemia, with long-term current use of insulin E11.65; Z79.4 Diabetes mellitus complication status: with hyperglycemia Intracranial hypertension G93.2 Moderate episode of recurrent major depressive disorder F33.1 Major depression episode severity: moderate Morbid obesity with BMI of 45.0-49.9, adult E66.01; Z68.42 Obstructive sleep apnea G47.33 Severe persistent asthma without complication J45.50 Asthma complication type: uncomplicated Vitamin D deficiency E55.9 Pain and swelling of right knee M25.561; M25.461 CPT Codes Diabetic Foot Exam - CPT: G9226 - Diabetic Foot Exam ([id number]) Details - CPT: 20328 - Glucose monitoring, continuous-physician I&R ([id number]) Additional Codes SILVERIO-7 Assessment Billing - SILVERIO-7 Assessment Tool: SILVERIO-7 Assessment 52116 ([id number]) PHQ-9 - 35652 - PHQ-9 Billing: Yes ([id number]) Assessment & Plan Assessment & Plan (1) Diabetes mellitus type 2 with complications: Code(s): E11.8 - Type 2 diabetes mellitus with unspecified complications Category: Medical (2) Chiari I malformation: Code(s): G93.5 - Compression of brain Category: Medical (3) Chronic migraine without aura: Code(s): G43.709 - Chronic migraine without aura, not intractable, without status migrainosus Category: Medical Qualifiers: Intractability: not intractable Status migrainosus presence: without status migrainosus Qualified Code(s): G43.709 - Chronic migraine without aura, not intractable, without status migrainosus (4) SILVERIO (generalized anxiety disorder): Code(s): F41.1 - Generalized anxiety disorder Category: Medical (5) Insulin use (long-term) in type 2 diabetes: Code(s): E11.9 - Type 2 diabetes mellitus without complications; Z79.4 - group home (current) use of insulin Category: Medical Qualifiers: Diabetes mellitus complication status: with hyperglycemia Qualified Code(s): E11.65 - Type 2 diabetes mellitus with hyperglycemia; Z79.4 - terminal gauger supervisor (current) use of insulin (6) Intracranial hypertension: Comment: No recent evidence of papilledema. Code(s): G93.2 - Benign intracranial hypertension Category: Medical (7) MDD (major depressive disorder), recurrent episode: Code(s): F33.9 - Major depressive disorder, recurrent, unspecified Category: Medical Qualifiers: Major depression episode severity: moderate Qualified Code(s): F33.1 - Major depressive disorder, recurrent, moderate (8) Morbid obesity with BMI of 45.0-49.9, adult: Comment: with HLD and DM and HTN Code(s): E66.01 - Morbid (severe) obesity due to excess calories; Z68.42 - Body mass index [BMI] 45.0-49.9, adult Category: Medical (9) Obstructive sleep apnea: Comment: should be on CPAP but cannot tolerate Code(s): G47.33 - Obstructive sleep apnea (adult) (pediatric) Category: Medical (10) Severe persistent asthma: Code(s): J45.50 - Severe persistent asthma, uncomplicated Category: Medical Qualifiers: Asthma complication type: uncomplicated Qualified Code(s): J45.50 - Severe persistent asthma, uncomplicated (11) Vitamin D deficiency: Code(s): E55.9 - Vitamin D deficiency, unspecified Category: Medical (12) Pain and swelling of right knee: Code(s): M25.561 - Pain in right knee; M25.461 - Effusion, right knee Plan . Orders: Orders AMB Hemoglobin A1c Today Z13.9 - Encounter for screening, unspecified Referrals Medical Weight Management Referral Z68.41 - Body mass index [BMI] 40.0-44.9, adult Orthopedics Referral M25.461 - Effusion, right knee, M25.561 - Pain in right knee Medications: New blood sugar diagnostic (FreeStyle Lite Strips) daily 100 ea 11RF E11.8 - Type 2 diabetes mellitus with unspecified complications thiamine HCl (vitamin B1) 50 mg (1/2 x 100 mg) PO DAILY 90 tabs 2RF glyburide 5 mg PO BID 180 tabs 2RF Refilled canagliflozin (Invokana) 300 mg PO DAILY 90 tabs 0RF Discontinued blood-glucose sensor (Dexcom G7 Sensor device) Discontinued Reason: Insurance Denied As directed 4 ea 12RF E11.8 - Type 2 diabetes mellitus with unspecified complications, E11.9 - Type 2 diabetes mellitus without complications, Z79.4 - terminal gauger supervisor (current) use of insulin On Hold tirzepatide (Mounjaro) Hold Comment: Doctor's Order 12.5 mg (0.5 mL) subcut QWEEK 2 mL 5RF
--- OUTSIDE RECORDS SUMMARY | 2025-02-17 08:21 | XMS_ITS | Encounter Summary ---
[facility] Organization [facility] Address [address] [place] [address] Care Team Providers Care Venetian Blind Washer Name Role Phone Jonna Carvalho MD Primary Care Provider Nicola Soni MD Primary Care Provider Carl Chapa, Pcp Primary Care Provider Jayson jauregui Encounter Details Date Type Department Care Team Description 11/22/2018 Night Triage Doc Medical Records [address] [place] [address] Abstract, Provider Social History Tobacco Use Types [...] on filedocumented in this encounter Care Teams Venetian Blind Washer Relationship Specialty Start Date End Date Jonna Carvalho MD PCP - General Internal Medicine 03/31/18 10/26/21 Nicola Spears MD PCP - General Internal Medicine 10/27/21 07/09/23 Community, Pcp PCP - General Internal Medicine 07/10/23 documented as of this encounter
--- OUTSIDE RECORDS SUMMARY | 2025-02-17 08:21 | XMS_ITS | Clinical Summary ---
Author Organization [facility] ity Address [address] [place] [address] Care Team Providers Care Diamond Saw Operator Name Role Phone Nicola Spears MD Primary Care Provider [phone] Surgical History Surgery Date Site/Laterality Comments CARPAL TUNNEL RELEASE PROCEDURE: SD NEUROPLASTY &/TRANSPOS MEDIAN NRV CARPAL TUNNE; COMMENT: bilateral TONSILLECTOMY PROCEDURE: HISTORICAL TONSILLECTOMY COLONOSCOPY 05/01/2018 PROCEDURE: OUTSIDE COLONOSCOPY; COMMENT: diminutive tubular adenoma polyp. random colonic bx normal. KNEE ARTHROSCOPY W/ MENISCAL REPAIR 12/11/2019 PROCEDURE: SD ARTHROSCOPY KNEE W/MENISCUS RPR MEDIAL/LATERAL; COMMENT: root repair; [facility] Medical History Medical History Date Comments [...] obesity wit h BMI of 45.0-49.9, adult ([facility]) Tubular adenoma of colon 05/15/2018 DX:Tubu lar adenoma of colon Irritable bowel syndrome wit h diarrhea 08/05/2018 DX:Irritable bowel syndrome with diarrhea Moderate persistent asthma w ith acute exacerbation 01/05/2019 DX:Moderate persistent asthm a with acute exacerbation DM (diabetes mellitus), type 2 with renal complications ([facility]/HCC V24, [facility]/HCC V28) 04/29/2018 DX:DM (diabetes mellitus), t ype 2 with renal complications ([facility]) Family History Medical History Relation [...] age to complete this topic Care Teams Diamond Saw Operator Relationship Specialty Start Date End Date Nicola Spears MD [address] [place] [address] PCP - General Internal Medicine 10/27/21
[2025-02-17 08:22] VITALS: BP 120/72; PULSE 88; RESP 12; TEMP 36.2; O2SAT 96; BMI 45.0
--- OUTSIDE RECORDS SUMMARY | 2025-02-17 08:22 | XMS_ITS | Encounter Summary ---
Author Organization [facility] Address [address] [place] [address] Care Team Providers Care Stone Rougher Name Role Phone Jonna Carvalho MD Primary Care Provider Nicola Soni MD Primary Care Provider Carl Chapa, Pcp Primary Care Provider Jayson jauregui Encounter Details Date Type Department Care Team Description 09/22/2019 Old Medical Records Medical Records [address] [place] [address] Abstract, Provider Social History Tobacco Use Types [...] on filedocumented in this encounter Care Teams Stone Rougher Relationship Specialty Start Date End Date Jonna Carvalho MD PCP - General Internal Medicine 03/31/18 10/26/21 Nicola Spears MD PCP - General Internal Medicine 10/27/21 07/09/23 Community, Pcp PCP - General Internal Medicine 07/10/23 documented as of this encounter
--- OUTSIDE RECORDS SUMMARY | 2025-02-17 08:22 | XMS_ITS | Encounter Summary ---
Author Organization [facility] Address [address] [place] [address] Care Team Providers Care Steam Roller Operator Name Role Phone Jonna Carvalho MD Primary Care Provider Nicola Soni MD Primary Care Provider Carl Chpaa, Pcp Primary Care Provider Unavailabl e Reason for Visit * Reason Comments E-prescribe Rx Request Encounter Details Date Type Department Care Team Description 01/23/2020 Refill Adult Medicine [address] [address] Jonna Carvalho MD E-prescribe Rx Request Social History Tobacco Use Types Packs/Day Years [...] encounter Miscellaneous Notes * Telephone Encounter - Makayla Robledo M.A. - 01/29/2020 2:00 PM EDT Telephone Information: for pt to return our call to schedule. * Telephone Encounter - Jonna Carvalho MD - 01/25/2020 12:38 PM EDT I have not evaluated her since last January needs audio * Telephone Encounter - Rachael Fernandes M.A. - 01/25/2020 12:11 PM EDT Lab Results Component Value Date HGBA1C 7.8 11/18/2019 MALBUR 39.0 11/18/2019 MALBCR 23.0 11/18/2019 CHOL 163 11/18/2019 LDL 101 11/18/2019 HDL 46 11/18/2019 TRIG 80 11/18/2019 GLU 233 12/29/2018 CREAT 0.57 12/26/2018 * Telephone Encounter - Anna Murphy - 01/25/2020 9:54 AM EDT Patient would like script to be: E-PRESCRIBED/FAXED TO PHARMACY WHEN WAS THE PATIENT'S LAST APPOINTMENT IN ADULT MEDICINE? 11/18/19 WHEN WAS THE LAST TIME THE PATIENT SAW THEIR PCP? 02/09/19 Does patient have an upcoming appointment? Yes 01/25/20 (THE MEDICATION REQUESTED IS ON THE MED LIST ABOVE) All of the medications requested were on the CURRENT MEDS list Did you check the Pharmacy information above?: YES Patient wants: 90 -day supply Is this a mail order prescription request ? NO If the refill is from a FAXED refill request what is the RX # listed on the fax? N/A Patients current insurance carrier is: Payor: [employer] [facility] / Plan: PPO $20 [place] [id number] / Product Type: PPO [id number] documented in this encounter Plan of Treatment Not on file documented as of this encounter Visit Diagnoses Not on filedocumented in this encounter Care Teams Steam Roller Operator Relationship Specialty Start Date End Date Jonna Carvalho MD PCP - General Internal Medicine 03/31/18 10/26/21 Nicola Spears MD PCP - General Internal Medicine 10/27/21 07/09/23 [facility], Pcp PCP - General Internal Medicine 07/10/23 documented as of this encounter
--- OUTSIDE RECORDS SUMMARY | 2025-02-17 08:22 | XMS_ITS | Encounter Summary ---
Author Organization [facility] Address [address] [place] [address] Care Team Providers Care Food And Beverage Controller Name Role Phone Jonna Carvalho MD Primary Care Provider Nicola Soni MD Primary Care Provider Carl Chapa, Pcp Primary Care Provider Jayson jauregui Encounter Details Date Type Department Care Team Description 12/29/2019 Special Agent Secret Service Report Medical Records [address] [place] [address] Abstract, Provider Social History Tobacco Use Types [...] on filedocumented in this encounter Care Teams Food And Beverage Controller Relationship Specialty Start Date End Date Jonna Carvalho MD PCP - General Internal Medicine 03/31/18 10/26/21 Nicola Spears MD PCP - General Internal Medicine 10/27/21 07/09/23 [facility] Pcp PCP - General Internal Medicine 07/10/23 documented as of this encounter
--- OUTSIDE RECORDS SUMMARY | 2025-02-17 08:23 | XMS_ITS | Encounter Summary ---
Author Organization [facility] Address [address] [place] [address] Care Team Providers Care Cost Report Clerk Name Role Phone Jonna Carvalho MD Primary Care Provider Nicola Soni MD Primary Care Provider Carl Chapa, Pcp Primary Care Provider Jayson jauregui Encounter Details Date Type Department Care Team Description 01/24/2021 Pt. Non Urgent Medic al Question Adult Medicine [address] [address] Jonna Carvalho MD Social History Tobacco Use [...] on filedocumented in this encounter Care Teams Cost Report Clerk Relationship Specialty Start Date End Date Jonna Carvalho MD PCP - General Internal Medicine 03/31/18 10/26/21 Nicola Spears MD PCP - General Internal Medicine 10/27/21 07/09/23 [facility], Pcp PCP - General Internal Medicine 07/10/23 documented as of this encounter
--- OUTSIDE RECORDS SUMMARY | 2025-02-17 08:23 | XMS_ITS | Encounter Summary ---
Author Organization [facility] Address [address] [place] [address] Care Team Providers Care City Plant Supervisor Name Role Phone Jonna Carvalho MD Primary Care Provider Nicola Soni MD Primary Care Provider Carl Chapa, Pcp Primary Care Provider [facility] Reason for Visit * Reason Onset Date Comments medication problems 07/12/2020 Encounter Details Date Type Department Care Team Description 07/12/2020 Telephone Adult Medicine [address] [address] Jonna Carvalho MD medication problems Social History [...] on filedocumented in this encounter Care Teams City Plant Supervisor Relationship Specialty Start Date End Date Jonna Carvalho MD PCP - General Internal Medicine 03/31/18 10/26/21 Nicola Spears MD PCP - General Internal Medicine 10/27/21 07/09/23 [facility], Pcp PCP - General Internal Medicine 07/10/23 documented as of this encounter
--- OUTSIDE RECORDS SUMMARY | 2025-02-17 08:23 | XMS_ITS | Encounter Summary ---
Author Organization [facility] Address [address] [place] [address] Care Team Providers Care Line Ordering Clinician Name Role Phone Jonna Carvalho MD Primary Care Provider Nicola Soni MD Primary Care Provider Carl Chapa, Pcp Primary Care Provider Jayson jauregui Encounter Details Date Type Department Care Team Description 08/25/2020 Telephone Adult Medicine [address] [address] Jonna Carvalho MD Social History Tobacco Use [...] on filedocumented in this encounter Care Teams Line Ordering Clinician Relationship Specialty Start Date End Date Jonna Carvalho MD PCP - General Internal Medicine 03/31/18 10/26/21 Nicola Spears MD PCP - General Internal Medicine 10/27/21 07/09/23 [facility], Sigrid PCP - General Internal Medicine 07/10/23 documented as of this encounter
--- OUTSIDE RECORDS SUMMARY | 2025-02-17 08:23 | XMS_ITS | Encounter Summary ---
Author Organization [facility] Address [address] [place] [address] Care Team Providers Care Disability Insurance Claim Examiner Name Role Phone Nicola Spears MD Primary Care Provider Carl Chapa, Pcp Primary Care Provider Jayson e Reason for Visit * Reason Onset Date Comments hospital follow up 07/20/2022 Encounter Details Date Type Department Care Team Description 07/20/2022 Telephone Adult Medicine [address] [address] Kelle Metcalf PAAllisonC hospital follow up Social [...] AM EDT Please contact patient. Hospitalized at [facility] 07/01- for acute asthma exacerbation. Patient hasnot been seen in medicine department since 07/12/2020. She is a known diabetic. Need to clarify PCP and get her set up with an appointment DANIELE for diabetes follow-up and hospital follow-up if she is still a [facility] patient. Thank you documented in this encounter Plan of Treatment Not on file documented as of this encounter Visit Diagnoses Not on filedocumented in this encounter Care Teams Disability Insurance Claim Examiner Relationship Specialty Start Date End Date Nicola Spears MD PCP - General Internal Medicine 10/27/21 07/09/23 [facility], Pcp PCP - General Internal Medicine 07/10/23 documented as of this encounter
--- OUTSIDE RECORDS SUMMARY | 2025-02-17 08:23 | XMS_ITS | Encounter Summary ---
Author Organization [employer] [facility] Address [address] [place] [address] Care Team Providers Care Headrig Sawyer Name Role Phone Jonna Carvalho MD Primary Care Provider Nicola Soni MD Primary Care Provider Carl Chapa, Pcp Primary Care Provider Jayson jauregui Encounter Details Date Type Department Care Team Description 04/08/2018 Release of Information Medical Records [address] [place] [id number] Abstract, Provider Social History Tobacco Use Types [...] on filedocumented in this encounter Care Teams Headrig Sawyer Relationship Specialty Start Date End Date Jonna Carvalho MD PCP - General Internal Medicine 03/31/18 10/26/21 Nicola Spears MD PCP - General Internal Medicine 10/27/21 07/09/23 Sig[facility] Chapa PCP - General Internal Medicine 07/10/23 documented as of this encounter
--- OUTSIDE RECORDS SUMMARY | 2025-02-17 08:23 | XMS_ITS | Data Portability ---
Author Organization [place] [facility] Address [address] [address] Care Team Providers Care French Translator Name Role Phone PAZ CALDERON Primary Care Provider Assessment Encounter Date Assessment Date Assessment LastModified by Organization Details LastModified Time 12/18/2024 12/18/2024 44-year-old female with insulin-depende nt diabetes, Chiari malformation, benign intracranial hypertension, migraines on Botox, presents today for evaluation primarily of dizziness with symptoms of imbalance, room spinning vertigo and tinnitus. She has had multiple imaging studies as noted in the HPI. Audiometric testing today is normal. Nancy-Hallpike is negative for any nystagmus. She does [...] Details Last Modified Time Details Appointments Establis [facility] 15 2024 09:00A M JOSELO MELTON MD Not available Not available Not available Lab None recorded . Referral None recorded . Procedures None recorded . Surgeries None recorded . Imaging [place], modified barium swallow study 2024 025 [facility] (Imaging), [address] [place] [address], [address], 12/25/2024 09:56:43 Medication Orders None recorded . [...] Address Organization Details Recorded Time Bilateral tinnitus 3015509289219 Active [address] [place], ROSEMARIE-A [address], [place], [address], [facility] - [facility] [place] 10:38:56 Chiari malformatio n 909246996 Active [address] [place], RO[place]AR[place]-A [address], [place], [address], [facility] - [facility] [place] 5 10:39:04 Vertigo 442245446 Active [address] [place], CCC-A [address], [place], [address], [facility] - [facility] [place] 10:39:30 Oropharynge al dysphagia 44822430 Active 2024 JOSELO MELTON MD [address], [place], [address], [facility] - [facility] [place] 11:10:35 Problem Notes None recorded. Procedures Surgical History Date Name Laterality Status Provider Name and Address Organization Details Recorded Time 12/18/19 25 Air & Speech Audio with Tymps (21827, 68997 & 45179) completed [address] [place], CCC-A [address], [place], [address], [facility] - [facility] 12/18/2024 10:39:42 12/18/19 25 OAE (distortion product, [facility] - [address]) completed [address] [place], CCC-A [address] [facility] [address], [address], [place] - [facility] 12/18/2024 10:39:55 Imaging Results Imaging Date Name Status LastModified by Organiz ation Details LastModified Time 12/18/2024 audiogram completed BARCODE Information no t available 12/18/2024 12:00:53 Procedure Notes None recorded. Medical Equipment None Reported. Allergies Allergen ID Allergen Name Allergen Category Reaction Reaction Severity Criticality Documentation Date Start Date Code Code System Note Provider Name and Address Organization Details Recorded Time 945715 heparin medicatio n Not available Not available Not available 12/18/2024 5224 RxNorm Latonia haile [place] - [facility] 10:53:11 Medications Name Sig Start Date Stop [...] completed Not Available Not Available Not Available [facility] ODT 75 mg disintegrat ing tablet DISSOLVE [...] Updated DateTime 12/18/2024 149.86 cm 44.4 kg/m2 02871.32 g Latonia John [place] - [facility] 12/18/2024 10:46:07 Social History None recorded. Functional Status None recorded. Mental Status None recorded. Family History Nothing Reported. Medical History Condition Response Diabetes Y Migraines Y Anxiety Y Depression Y Asthma Y Sleep Disorder Y Gynecological HistoryNo gynecological history recorded. Obstetrics History GPAL:G 0 P 0 0 0 0 Past Encounters Encounter ID Performer Location Encounter Start Date Encounter Closed Date Diagnosis/Indication Diagnosis SNOMED-CT Code Diagnosis ICD10 Code Diagnosis Note [id number] JOSELO MELTON MD [facility] of [address] [address] 12/18/2024 09:54:35 12/18/2024 11:14:35 Bilateral tinnitus 2097706583 102 H93.13 Audiologic al evaluation results: Right [...] at the test frequency. Chiari malformation 2531 [address] Q07.00 Vertigo 149419610 R42 Oropharyng eal dysphagia 91325977 R13.12 Health Concerns Section Related Observation LastModified by Organization Detai ls LastModified Time None Recorded Concern Status LastModified by Organization Details LastModified Time None Recorded Advance Directives Directive None Recorded Payers Encounter Date Sequence Insurance Name Policy Number Policy Cowan Covered Member ID Cowan Member ID Guarantor Name 12/18/2024 1 [facility] NET PLAN (MEDICAID HMO) FRANKI Escobedo [id number] Susan Escobedo Notes Date Note Type Note [...] due to sound sensitivity JOSELO MELTON MD [address] [place] [address], [phone], [facility] - [facility] 12/27/2024 13:17:13 OBGyn Episode No OBEpisode recorded.
--- OUTSIDE RECORDS SUMMARY | 2025-02-17 08:23 | XMS_ITS | Encounter Summary ---
Author Organization [employer] [facility] Address [address] [place] [address] Care Team Providers Care Stone Repairer Name Role Phone Nicola Spears MD Primary Care Provider Carl Chapa, Pcp Primary Care Provider Jayson jauregui Encounter Details Date Type Department Care Team Description 07/03/2022 Hospital Medical Records [address] [place] [address] Shante Upton NP Social History Tobacco Use Types Packs/Day Years [...] filedocumented in this encounter Care Teams Stone Repairer Relationship Specialty Start Date End Date Nicola Spears MD PCP - General Internal Medicine 10/27/21 07/09/23 Sammi Pcp PCP - General Internal Medicine 07/10/23 documented as of this encounter
--- OUTSIDE RECORDS SUMMARY | 2025-02-17 08:23 | XMS_ITS | Encounter Summary ---
Author Organization [facility] Address [address] [place] [address] Care Team Providers Care Contract Negotiation Manager Name Role Phone Jonna Carvalho MD Primary Care Provider Nicola Soni MD Primary Care Provider Carl Chapa, Pcp Primary Care Provider Jayson jauregui Encounter Details Date Type Department Care Team Description 2018 Edger Runner Report Medical Records [address] [place] [address] Jennie Whitaker, RD, LDN [address] [address] Social History Tobacco Use Types Packs/Day Years [...] on filedocumented in this encounter Care Teams Contract Negotiation Manager Relationship Specialty Start Date End Date Jonna Carvalho MD PCP - General Internal Medicine 03/31/18 10/26/21 Nicola Spears MD PCP - General Internal Medicine 10/27/21 07/09/23 [facility], Pcp PCP - General Internal Medicine 07/10/23 documented as of this encounter
--- OUTSIDE RECORDS SUMMARY | 2025-02-17 08:24 | XMS_ITS | Data Portability ---
Author Organization [facility] [employer] Address [address] [place] [address] [place] [address] Care Team Providers Care Calibration Checker Name Role Phone JAZMYNE LINDO Referring Provider [...] likely that the CSF assays sent by [facility] after September 10, 2023 lumbar puncture [...] find: Ophthalmology note, CSF results sent after [facility] Follow up after mrossen Not [...] likely that the CSF assays sent by [facility] after September 10, 2023 lumbar puncture [...] cervical spine without contrast February 13, 2024 [facility] radiology: Suboptimal evaluation secondary to motion. Within this constraint: The cervical spinal cord is normal in signal intensity. There is no high-grade central spinal canal stenosis. Up to moderate bilateral neuroforaminal stenosis at C4-5. MRV brain with and without IV contrast, [facility], compared to brain MRI December 17, 2018 and MR a head October 01, 2023 [facility]: No cerebral venous thrombosis, unremarkable study more generally. MRA head without contrast [facility] October 02, 2023: Normal. CSFNov2022 clear, colorless, WBC = 0, RBC = 12/8 [2 #4 presumably], glucose 106, total protein 25.1 serum: September 10 2023 glucose 210 test negative Lumbar puncture note [facility], September 10, 2023, for chief complaint [...] Jardiance, Lantus, ondansetron, rizatriptan PLAN [facility] March 24, 2024 She wants to think about whether she wants to continue working with me. She will call, and a week she thinks, if she does, and we agree that at that point I would look at [facility] interventional radiology and have her follow-up [...] By Organization Details Last Modified Time 01/27/2024 82161 Discussion acros s issues of diagnoses and management and same day associated chart review and management greater than 50% greater than 60 minutes mrossen Not available 01/27/2024 14:30:31 03/24/2024 [id number] PREVIOUS DISCUSSION >>>>>>>>January 27, 2024 initial neurology [...] ast No observ ation record ed. [email or web address] [facility] [address] [place], [address], 03/25/2024 16:03:10 Result Notes None recorded. Procedures Surgical History Date Name Laterality Status Provider Name and Address Organization Details Recorded Time 03/24/2024 DATA REVIEW completed Ilya Mckeon MD [address] [place], [place] [address], [address], [facility] 03/24/2024 10:16:01 01/27/2024 DATA REVIEW completed Ilya Mckeon MD [address] [place], [place] [address], [address], [facility] 01/27/2024 14:11:59 Imaging Results Imaging Date Name Status LastModified by [facility] Details LastModified Time 07/06/2023 MRI, [...] MRI, cervical spine, w/o contrast completed [email or web address] [facility] [address] [facility], [place], [address], 03/25/2024 16:03:10 Procedure Notes None recorded. Medical Equipment None Reported. Allergies Allergen ID Allergen Name Allergen Category Reaction Reaction Severity Criticality Documentation Date Start Date Code Code System Note Provider Name and Address Organization Details Recorded Time 3895 heparin medicatio n Not available Not available Not available 01/27/2024 5224 RxNorm Eli Vegas [facility] 13:24:25 Medications Name Sig Start Date Stop [...] Not Available Not Available No t Available [employer] Zeynep 3 Sensor device USE DIRECTED FOR DIABETES. CHANGE EVERY 14 DAYS active Not Available Not Available No t Available Vitals Date Recorded Body height Body mass index (BMI) Body weight Respiratory rate Provider Name and Address Organization Details Last Updated DateTime 01/27/2024 149.86 cm 46 kg/m2 255566.06 g 12 /min Eli Vegas [facility] 01/27/2024 13:24:17 Social History Question Answer Notes LastModified by Organizat ion Details LastModified Time Tobacco Smoking Status Never Smoker Eli haile [facility] 01/27/2024 13:26:01 What Is Your Level Of Alcohol Consumption? None Information not available 01/27/2024 What Is Your Level Of Caffeine Consumption? Moderate 1 Cup Daily Information not available 01/27/2024 What Is The Highest Grade Or Level Of School You Have Completed Or The Highest Degree You Have Received? [id number] Information not available 01/27/2024 Which Of Your [...] N Vitamin B12 deficiency N Heart Attack (IA) N Spine Problems N Obstructive Sleep Apnea [...] SNOMED-CT Code Diagnosis ICD10 Code Diagnosis Note [id number] Ilya Mckeon MD [facility] [address] [place] [address] [place] [address] 01/27/2024 12:43:24 01/27/2024 15:32:53 Benign intracranial hypertension 79567261 G93.2 Migraine without aura 56 689881 G43.009 [id number] Ilya Mckeon MD [facility] [address] [place] [address] [place] [address] 03/24/2024 09:45:33 03/24/2024 10:51:41 Benign intracranial hypertension 27335120 G93.2 Migraine without aura 56 237656 G43.009 Health Concerns Section Related Observation LastModified by Organization Detai ls LastModified Time None Recorded Concern Status LastModified by Organization Details LastModified Time None Recorded Advance Directives Directive None Recorded Payers Encounter Date Sequence Insurance Name Policy Number Policy Cowan Covered Member ID Cowan Member ID Guarantor Name 01/27/2024 1 [facility] [id number] Susan Escobedo [id number] Susan Escobedo 03/24/2024 1 [facility] [id number] Susan Escobedo [id number] Susan Escobedo Notes Date Note Type Note Provider Name and Address Organization Details Recorded Time 01/27/2024 text/html She presents for initial neurology consultation for assessment and management of June 26-2022, onset of persistent, dizziness, arm tingling, partially improved slurring, visual blurring, and on June 29 headache, which also persists, all preceded by 2000 23-[facility].She is accompanied by her sister, Gracie.Before June 26, 2023, she rarely got headaches, at most three times a year, and always mild. The only tingling she has ever had has been below her right knee and her right leg since right-sided knee meniscus surgery. She has generally not had visual blurring or speech slurring or dizziness.On 2023 she spent the day [facility]. 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
--- OUTSIDE RECORDS SUMMARY | 2025-02-17 08:24 | XMS_ITS | Encounter Summary ---
Author Organization [facility] Address [address] [place] [address] Care Team Providers Care Vending Machine Attendant Name Role Phone Jonna Carvalho MD Primary Care Provider Nicola Soni MD Primary Care Provider Carl Chapa, Pcp Primary Care Provider [facility] Reason for Visit * Reason Onset Date Comments Prior Authorization 04/21/2018 Encounter Details Date Type Department Care Team Description 04/21/2018 Telephone Gastroenterology - [address] [address] Griffin Saucedo PA-C Prior Authorization Social History [...] Aga Viverosrar - 04/21/2018 11:23 AM EDT [facility] auth required 04/21/18 - 04/21/19 [id number] To be done at [facility] * Telephone Encounter - Renetta Winter - 04/21/2018 10:39 AM EDT Pre-auth needed Patient is scheduled for a colonoscopy on 05-01-18 Patients insurance: Payor: [facility] / Plan: PPO $20 [id number] / Product Type: PPO [id number] Appointment is with Ruby Rosales MD Code to process pre-auth for: [id number] Location of procedure: [facility] documented in this encounter Plan of Treatment Not on file documented as of this encounter Visit Diagnoses Not on filedocumented in this encounter Care Teams Vending Machine Attendant Relationship Specialty Start Date End Date Jonna Carvalho MD PCP - General Internal Medicine 03/31/18 10/26/21 Nicola Spears MD PCP - General Internal Medicine 10/27/21 07/09/23 On License Of [facility], Pcp PCP - General Internal Medicine 07/10/23 documented as of this encounter
== END 2025-02-17 09:11 | disposition home or self-care (01) ==
LOC: HO.HMCFM 08:10
PROVIDERS: PCP Nurse Practitioner Family; Visit Provider Nurse Practitioner Family
DX: E11.8 Type 2 diabetes mellitus with unspecified complications (principal); G93.5 Compression of brain; E11.65 Type 2 diabetes mellitus with hyperglycemia; Z79.4 Long term (current) use of insulin; E66.01 Morbid (severe) obesity due to excess calories; J45.50 Severe persistent asthma, uncomplicated; F33.1 Major depressive disorder, recurrent, moderate; Z68.42 Body mass index [BMI] 45.0-49.9, adult; G43.709 Chronic migraine without aura, not intractable, without status migrainosus; F41.1 Generalized anxiety disorder; G93.2 Benign intracranial hypertension; G47.33 Obstructive sleep apnea (adult) (pediatric)

== ENCOUNTER → 2025-02-17 08:09 | Outpatient (BNVA) | payer OTHER, SELFPAY | PROVIDERS: PCP Nurse Practitioner Family; Visit Provider Nurse Practitioner Family | DX: E11.8 Type 2 diabetes mellitus with unspecified complications (principal); G93.5 Compression of brain; G43.709 Chronic migraine without aura, not intractable, without status migrainosus; F41.1 Generalized anxiety disorder; E11.65 Type 2 diabetes mellitus with hyperglycemia; G93.2 Benign intracranial hypertension; F33.1 Major depressive disorder, recurrent, moderate; E66.01 Morbid (severe) obesity due to excess calories; Z68.42 Body mass index [BMI] 45.0-49.9, adult; G47.33 Obstructive sleep apnea (adult) (pediatric); J45.50 Severe persistent asthma, uncomplicated; E55.9 Vitamin D deficiency, unspecified; M25.561 Pain in right knee; M25.562 Pain in left knee; Z79.4 Long term (current) use of insulin | CPT/HCPCS: 83036; 96127; 99212 ==

== ENCOUNTER 2025-02-23 13:45 | Outpatient (AMB) | payer OTHER, SELFPAY ==
--- NOTE | 2025-02-23 14:07 | A.OFFVIS_ITS ---
Vital Signs 02/23/25 14:07 Height 4 ft 11 in Intake Visit Reasons: Botox Intake Note: patient presents for botox injection. patient supplied Allergies Heparin Analogues [HEPARIN AGENTS] Allergy (Intermediate, Verified 02/23/25 14:08) HIVES, RASH, SEVERE BRUISING dulaglutide [From Trulicity] Allergy (Verified 02/23/25 14:08) Rash HPI Comments Details: ? 44y/o female comes for treatment of migraines with botox. ??? Most frequent reported adverse reactions following injection of botox for chronic migraine include neck pain (9%), headache(5%), eyelid ptosis(4%), migraine(4%), muscular weakness(4%), musculuskeletal stiffness(4%), bronchitis(3%), injection site pain (3%), musculoskeletal pain(3%), myalgia(3%), facial paresis(2%), HTN(2%) and muscle spasms(2%) were discussed in detail. ??? Botulinum toxin typeA 200units Lot no [id number] expiration January 2027 was diluted with 4 cc of normal saline . ??? Muscles injected- ??? Frontalis 4 sites ??? Procerus 1 site ??? Mixer Operator Raw Salt- 2 sites ??? Temporalis- 8 sites ??? Occipitalis- 6 sites ??? Cervical paraspinals- 4 sites ??? Trapezius- 6 sites- 10 units each ??? 5 units each in 31 site ??? Total use- 185units ??? Discarded-15units [facility] Medical History Asthma Sleep apnea Hypertension IBS (irritable bowel syndrome) DVT (deep venous thrombosis) COVID-19 Diabetes Surgical History [place] teeth extracted Hx of carpal tunnel repair Hx of tonsillectomy Hx of knee surgery Family History Maternal Grandfather Substance abuse Heart attack Maternal Grandmother Stomach cancer Father Diabetes Asthma Mother Asthma Social History Household Members: Family Housing: House Do you presently have visiting nurse or other home services: No 75 years or older and lives alone: No Alcohol intake: never Patient Tobacco Use Status: Never used Tobacco e-Cigarette/Vaping Use: Never Used Advance Directives Date on File: 06/29/22 service: No Current occupational status: employed Cognitive needs: Yes Hearing needs: Yes Vision needs: Yes (wear glasses) Physical Exam Const General: cooperative and no acute distress Orientation/consciousness: patient oriented x3 Resp Effort & Inspection: normal respiratory effort and able to speak in complete sentences Neuro General: patient oriented x3 and moves all extremities Cranial nerves: Yes CN's II-XII intact bilaterally Cognition (Neuro): normal cognition Psych Appearance: grossly normal Mental Status: mental status grossly normal Speech and movement: Normal speech and movement present Affect: normal affect Attitude: cooperative Office Procedures Botulinum toxin Injection 50848 - Migraine Procedure code (CPT) selection complete Office Meds onabotulinumtoxinA 200 unit solution for injection Performing Provider: Guerline Fernandez MD Performing Location: [facility] Administered by: Guerline Fernandez MD on 02/23/25 15:08 Dose Route Admin Location Dispensed Lot Number Expiration Date [facility] Patrol Officer 185 unit IM 200 units [id number] ALLERGAN/BOTOX Comments: see hpi Assessment & Plan Assessment & Plan (1) Chronic migraine without aura: Code(s): G43.709 - Chronic migraine without aura, not intractable, without status migrai nosus Category: Medical Qualifiers: Status migrainosus presence: without status migrainosus Intractability: not intractable Qualified Code(s): G43.709 - Chronic migraine without aura, not intractable, without status migrainosus (2) Obstructive sleep apnea: Comment: should be on CPAP but cannot tolerate Code(s): G47.33 - Obstructive sleep apnea (adult) (pediatric) Category: Medical Plan Patient tolerated the procedure well she will call with any side effects refer to Dental sleep medicine for oral appliance Orders: Orders AMB Botulinum toxin Injection Today G43.709 - Chronic migraine without aura, not intractable, without status migrainosus Referrals Sleep Medicine Referral E66.01 - Morbid (severe) obesity due to excess calories, G47.33 - Obstructive sleep apnea (adult) (pediatric), Z68.42 - Body mass index [BMI] 45.0-49.9, adult Medications: New onabotulinumtoxinA 200 units IM ONCE 1 ea 0RF migraines G43.709 - Chronic migraine without aura, not intractable, without status migrainosus Coding Level of Care Code Est Pt Level 2 (18586) Diagnoses Chronic migraine without aura without status migrainosus, not intractable G43.709 Status migrainosus presence: without status migrainosus Intractability: not intractable Obstructive sleep apnea G47.33 CPT Codes Botox Injection - Botox 3: 04626 - Migraine ([id number])
--- OUTSIDE RECORDS SUMMARY | 2025-02-23 15:06 | XMS_ITS | Data Portability ---
Author Organization [facility] Address [address] [place] [address] [place] [address] Care Team Providers Care Pharmacy General Manager Name Role Phone JAZMYNE LINDO Referring Provider [...] likely that the CSF assays sent by [facility] after September 10, 2023 lumbar puncture [...] find: Ophthalmology note, CSF results sent after [facility] Follow up after mrossen Not [...] likely that the CSF assays sent by [facility] after September 10, 2023 lumbar puncture [...] cervical spine without contrast February 13, 2024 [facility] radiology: Suboptimal evaluation secondary to motion. Within this constraint: The cervical spinal cord is normal in signal intensity. There is no high-grade central spinal canal stenosis. Up to moderate bilateral neuroforaminal stenosis at C4-5. MRV brain with and without IV contrast, [facility], compared to brain MRI December 17, 2018 and MR a head October 01, 2023 [facility]: No cerebral venous thrombosis, unremarkable study more generally. MRA head without contrast [facility] October 02, 2023: Normal. CSFNov2022 clear, colorless, WBC = 0, RBC = 12/8 [2 #4 presumably], glucose 106, total protein 25.1 serum: September 10 2023 glucose 210 test negative Lumbar puncture note [facility], September 10, 2023, for chief complaint [...] Jardiance, Lantus, ondansetron, rizatriptan PLAN Susan Escobedo ([facility] March 24, 2024 She wants to think about whether she wants to continue working with me. She will call, and a week she thinks, if she does, and we agree that at that point I would look at [facility] interventional radiology and have her [...] By Organization Details Last Modified Time 01/27/2024 27224 Discussion acros s issues of diagnoses and management and same day associated chart review and management greater than 50% greater than 60 minutes [email or web address] Not available 01/27/2024 14:30:31 03/24/2024 31716 PREVIOUS DISCUSSION >>>>>>>>January 27, 2024 initial neurology [...] ast No observ ation record ed. [email or web address] [facility] [address] [place], [address], 03/25/2024 16:03:10 Result Notes None recorded. Procedures Surgical History Date Name Laterality Status Provider Name and Address Organization Details Recorded Time 03/24/2024 DATA REVIEW completed Ilya Mckeon MD [address] [place], [place] [address], [address], [facility] 03/24/2024 10:16:01 01/27/2024 DATA REVIEW completed Ilya Mckeon MD [address] [place], [place] [address], [address], [facility] 01/27/2024 14:11:59 Imaging Results Imaging Date [...] MRI, cervical spine, w/o contrast completed [email or web address] [facility] [address] [facility], [place], [address], 03/25/2024 16:03:10 Procedure Notes None recorded. Medical Equipment None Reported. Allergies Allergen ID Allergen Name Allergen Category Reaction Reaction Severity Criticality Documentation Date Start Date Code Code System Note Provider Name and Address Organization Details Recorded Time 3895 heparin medicatio n Not available Not available Not available 01/27/2024 5224 RxNorm Eli Vegas [facility] 13:24:25 Medications Name Sig Start Date [...] Not Available Not Available No t Available FreeStProfig Zeynep 3 Sensor device USE DIRECTED FOR DIABETES. CHANGE EVERY 14 DAYS active Not Available Not Available No t Available Vitals Date Recorded Body height Body mass index (BMI) Body weight Respiratory rate Provider Name and Address Organization Details Last Updated DateTime 01/27/2024 149.86 cm 46 kg/m2 903611.06 g 12 /min Eli Vegas [facility] 01/27/2024 13:24:17 Social History Question Answer Notes LastModified by Organizat ion Details LastModified Time Tobacco Smoking Status Never Smoker Eli haile [facility] 01/27/2024 13:26:01 What Is Your Level Of Alcohol Consumption? None Information not available 01/27/2024 What Is Your Level Of Caffeine Consumption? Moderate 1 Cup Daily Information not available 01/27/2024 What Is The Highest Grade Or Level Of School You Have Completed Or The Highest Degree You Have Received? OV11207-0 Information not available 01/27/2024 Which Of Your [...] N Thyroid Problems N Brain Tumors N Depression Y Lung Disease N COPD or emphysema N Encephalitis N Vitamin B12 deficiency N PTSD N Heart Attack ([place]) N Spine Problems N Obstructive Sleep Apnea N Alcoholism N Diabetes Y Autoimmune disease N Bleeding Disorder N Arthritis N Tuberculosis N Cerebral Palsy N Developmental Problems N Neck Problems N Cancer N Back Problems N Stroke N Asthma Y Heartburn, acid reflux, GERD N Vitamin D Deficiency N Epilepsy/Seizures N Bipolar Disorder N Sleep Disorder N Hepatitis N Aneurysm N Liver Disease N Heart Disease N Headaches Y Fibromyalgia N High Cholesterol or Hyperlipidemia N Osteoporosis N Kidney Disease N Gynecological HistoryNo gynecological history recorded. Obstetrics History GPAL:G 0 P 0 0 0 0 Past Encounters Encounter ID Performer Location Encounter Start Date Encounter Closed Date Diagnosis/Indication Diagnosis SNOMED-CT Code Diagnosis ICD10 Code Diagnosis Note [id number] Ilya Mckeon MD [facility] [address] [place] [address] [place] [address] 01/27/2024 12:43:24 01/27/2024 15:32:53 Benign intracranial hypertension 30659951 G93.2 Migraine without aura 56 744229 G43.009 [id number] Ilya Mckeon MD [facility] [address] [place] [address] [place] [address] 03/24/2024 09:45:33 03/24/2024 10:51:41 Benign intracranial hypertension 88512323 G93.2 Migraine without aura 56 205290 G43.009 Health Concerns Section Related Observation LastModified by Organization Detai ls LastModified Time None Recorded Concern Status LastModified by Organization Details LastModified Time None Recorded Advance Directives Directive None Recorded Payers Encounter Date Sequence Insurance Name Policy Number Policy Cowan Covered Member ID Cowan Member ID Guarantor Name 01/27/2024 1 [facility] [id number] Susan Escobedo [id number] Susan Escobedo 03/24/2024 1 [facility] [id number] Susan Escobedo [id number] Susan Escobedo Notes Date Note Type Note Provider Name and Address Organization Details Recorded Time 01/27/2024 text/html She presents for initial neurology consultation for assessment and management of June 26-2022, onset of persistent, dizziness, arm tingling, partially improved slurring, visual blurring, and on June 29 headache, which also persists, all preceded by 2000 23-day at the [facility].She is accompanied by her sister, Gracie.Before June 26, 2023, she rarely got headaches, at most three times a year, and always mild. The only tingling she has ever had has been below her right knee and her right leg since right-sided knee meniscus surgery. She has generally not had visual blurring or speech slurring or dizziness.On 2023 she spent the day at the [facility]. 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
--- OUTSIDE RECORDS SUMMARY | 2025-02-23 15:06 | XMS_ITS | Data Portability ---
Author Organization [place] [facility] Address [address] [address] Care Team Providers Care Tieing Machine Operator Name Role Phone PAZ CALDERON Primary Care [...] the HPI. Audiometric testing today is normal. Claudia-Hallpike is negative for any nystagmus. She does [...] Details Last Modified Time Details Appointments Establis [facility] 15 2024 10:30A M JOSELO MELTON MD Not available Not available Not available Lab None recorded . Referral None recorded . Procedures None recorded . Surgeries None recorded . Imaging [place], modified barium swallow study 2024 [id number] [facility] (Imaging), [address] [place] [address], [address], 12/25/2024 09:56:43 Medication Orders None recorded . [...] Address Organization Details Recorded Time Bilateral tinnitus 1400713628665 Active [address] [place], CCC-A [facility], [place], [address], [facility] - [facility] [place] 10:38:56 Chiari malformatio n 039293923 Active [address] [place], CCC-A 100 [facility],[address], [place], [address], [facility] - [facility] [place] 10:39:04 Vertigo 331991835 Active [address] [place], CCC-A 100 [facility] [place], [place], [address], [facility] - [facility] [place] 10:39:30 Oropharynge al dysphagia 03788023 Active 2024 JOSELO MELTON MD 100 [facility], [place], [address], [facility] - [facility] [place] 11:10:35 Problem Notes None recorded. Procedures Surgical History Date Name Laterality Status Provider Name and Address Organization Details Recorded Time 12/18/19 25 Air & Speech Audio with Tymps - 07819, [address] & [address] [place], CCC-A 100 [facility] [place], [place], [address], [facility] - [facility] [place] 12/18/2024 10:39:42 12/18/19 25 OAE distortion product, comprehensive - [address] [place], [facility] [address], [address], [place] [facility] [...] Name and Address Organization Details Recorded Time 192986 heparin medicatio n Not available Not available [...] completed Not Available Not Available Not Available [facility] 75 mg disintegrat ing tablet DISSOLVE [...] Updated DateTime 12/18/2024 149.86 cm 44.4 kg/m2 31510.32 g Latonia John [place] - [facility] [...] SNOMED-CT Code Diagnosis ICD10 Code Diagnosis Note [id number] JOSELO MELTON MD [facility] [address] [address] 12/18/2024 09:54:35 12/18/2024 11:14:35 Bilateral tinnitus 9468223237 102 H93.13 Audiologic al evaluation results: Right [...] at the test frequency. Chiari malformation 2531 71511 Q07.00 Vertigo 891317999 R42 Oropharyng eal dysphagia 54055459 R13.12 Health Concerns Section Related Observation LastModified by Organization Detai ls LastModified Time None Recorded Concern Status LastModified by Organization Details LastModified Time None Recorded Advance Directives Directive None Recorded Payers Encounter Date Sequence Insurance Name Policy Number Policy Cowan Covered Member ID Cowan Member ID Guarantor Name 12/18/2024 1 [facility] PL[facility] (MEDICAID HMO) FRANKI Escobedo [id number] Susan Escobedo Notes Date Note Type Note [...] due to sound sensitivity JOSELO MELTON MD [address] [place] [address],[place] [address], [place], [address], [facility] - [facility] 12/27/2024 13:17:13 OBGyn Episode No OBEpisode recorded.
--- OUTSIDE RECORDS SUMMARY | 2025-02-23 15:06 | XMS_ITS | Clinical Summary ---
Author Organization [facility] ity Address [address] [place] [address] Care Team Providers Care Entry Table Operator Name Role Phone Nicola Spears MD Primary Care Provider [phone] Surgical History Surgery Date Site/Laterality Comments CARPAL TUNNEL RELEASE PROCEDURE: IN NEUROPLASTY &/TRANSPOS MEDIAN NRV CARPAL TUNNE; COMMENT: bilateral TONSILLECTOMY PROCEDURE: HISTORICAL TONSILLECTOMY COLONOSCOPY 05/01/2018 PROCEDURE: OUTSIDE COLONOSCOPY; COMMENT: diminutive tubular adenoma polyp. random colonic bx normal. KNEE ARTHROSCOPY W/ MENISCAL REPAIR 12/11/2019 PROCEDURE: IN ARTHROSCOPY KNEE W/MENISCUS RPR MEDIAL/LATERAL; COMMENT: root repair; [facility] Medical History Medical History Date [...] obesity wit h BMI of 45.0-49.9, adult ([facility]) Tubular adenoma of colon 05/15/2018 DX:Tubu lar adenoma of colon Irritable bowel syndrome wit h diarrhea 08/05/2018 DX:Irritable bowel syndrome with diarrhea Moderate persistent asthma w ith acute exacerbation 01/05/2019 DX:Moderate persistent asthm a with acute exacerbation DM (diabetes mellitus), type 2 with renal complications ([facility]/HCC V24, [facility]/HCC V28) 04/29/2018 DX:DM (diabetes mellitus), t ype 2 with renal complications ([facility]) Family History Medical History Relation [...] age to complete this topic Care Teams Entry Table Operator Relationship Specialty Start Date End Date Nicola Spears MD [address] [place] [address] PCP - General Internal Medicine 10/27/21
== END 2025-02-23 14:34 | disposition home or self-care (01) ==
LOC: HO.HSMS 13:47
PROVIDERS: PCP Nurse Practitioner Family; Visit Provider Psychiatry & Neurology Neurology
DX: G43.709 Chronic migraine without aura, not intractable, without status migrainosus (principal); G47.33 Obstructive sleep apnea (adult) (pediatric)
CPT/HCPCS: 64615; 99212

== ENCOUNTER → 2025-02-23 13:45 | Outpatient (BNVA) | payer OTHER, SELFPAY | PROVIDERS: PCP Nurse Practitioner Family; Visit Provider Psychiatry & Neurology Neurology | DX: G43.709 Chronic migraine without aura, not intractable, without status migrainosus (principal); G47.33 Obstructive sleep apnea (adult) (pediatric) | CPT/HCPCS: 64615; 99212; J0585 ==

== ENCOUNTER 2025-02-26 10:49 | Outpatient (AMB) | payer OTHER, SELFPAY ==
[2025-02-26 11:04] VITALS: BP 110/78; PULSE 80; O2SAT 98; BMI 45.2
--- NOTE | 2025-02-26 11:04 | A.OFFVIS_ITS ---
Vital Signs 02/26/25 11:04 Height 4 ft 11 in Weight 224 lb BMI 45.2 BP 110/78 Blood Pressure Location Rt brachial Pulse 80 Pulse Source Pulse Oximeter Pulse Oximetry (%) 98 Oxygen Delivery Method Room Air Intake Visit Reasons: f/u appt Intake Note: Patient presents follow up for headaches/dizziness. 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 Required: No Accompanied by: Self / Same As Patient Allergies Heparin Analogues [HEPARIN AGENTS] Allergy (Intermediate, Verified 02/26/25 11:07) HIVES, RASH, SEVERE BRUISING dulaglutide [From Trulicity] Allergy (Verified 02/26/25 11:07) Rash Medication List - Last Reconciled 02/26/25 by JASWANT Motta acetazolamide ER 500 mg PO DAILY albuterol sulfate 90 mcg/actuation (Ventolin HFA) 2 puffs inhalation QID PRN albuterol sulfate 2.5 mg (3 mL) inhalation Q4-6H PRN baclofen 20 mg (2 x 10 mg) PO BEDTIME 30 days blood sugar diagnostic (FreeStyle Lite Strips) daily blood-glucose sensor (FreeStyle Zeynep 3 Sensor device) As directed canagliflozin (Invokana) 300 mg PO DAILY cholecalciferol (vitamin D3) 1,250 mcg PO QWEEK clonidine HCl 0.3 mg PO BID duloxetine mg PO DAILY dupilumab (Dupixent) 300 mg (2 mL) subcut Q2W fluticasone furoate-vilanterol 200-25 mcg/dose (Breo Ellipta) 1 inh inhalation DAILY glyburide 5 mg PO BID indomethacin 25 mg PO TID 30 days insulin glargine (Lantus Solostar U-100 Insulin) 20 units (0.2 mL) subcut BID magnesium L-threonate mg PO metoclopramide HCl 5 - 10 mg (1 - 2 x 5 mg) PO Q4-6H 30 days MDD 4 tabs onabotulinumtoxinA (Botox) 200 units IM ONCE 12 weeks ondansetron 4 - 8 mg (1 - 2 x 4 mg) PO Q6-8H PRN 30 days pen needle, diabetic (Ultra-Thin II Insulin Pen Lititz) As directed propranolol mg PO 3XD riboflavin (vitamin B2) 400 mg PO DAILY 30 days rimegepant (Nurtec ODT) 75 mg PO Q OTHER DAY sertraline 50 mg PO DAILY thiamine HCl (vitamin B1) 50 mg (1/2 x 100 mg) PO DAILY tirzepatide (Mounjaro) 12.5 mg (0.5 mL) subcut QWEEK HPI Comments Details: 44-year-old female presents for follow-up in-person visit for chronic migraine, h/o IIH, cervicalgia, dizziness, sleep apnea. Pt reports nothing is working- she is not feeling any better. She has had to stop working completely at this point, as she needs to take her time or take breaks doing her routine ADLs/IADLs She would like to return to work sooner than later. She is having increased pain, the neck pain is interfering with her sleep, the muscle spasms are worse, the face pain persists. She is still having bouts of swelling in the posterior neck occipital to lower neck. She stopped PT about a month ago, as it was no longer having any benefit- in terms of both neck pain, headaches and dizziness. She stopped baclofen, as it was not helping. She is sleeping a lot during the day. Patient previously returned her CPAP machine. Still is struggling with her vision- things look blurry when watching TV or if someone walks by her. States she has difficulty with depth perception when taking turns. Unsure if she has diplopia- but can see shadows of objects or shadows trailing an object that is moving. The dizziness and vision issues prevent her from driving. She is followed by [facility]- has been having eye exams, no evidence of papilledema. She is dizzy a lot of the day. The dizziness, photophobia, phonophobia- prevents her from leaving her house for too long, as large amounts of movement makes her more dizzy, noise and lights also overwhelm her. Dizziness is also triggered by bending over and over and getting up quickly. Continues to have frequent headaches. Can have headaches in the middle of the night. She states the Nurtec helps the facial pain quickly, but not the temporal or other headache. Baseline headache characteristics: 1- Headache is throbbing/pressure, temples, lower occipital/neck/shoulder region a/w brain fog, room spinning or not right in space dizziness, tinnitus, nausea, osmophobia, photophobia, phonophobia, allodynia, cognitive and speech difficulties, and previously right sided facial swelling.. 2- Brief severe sharp stabbing pains in the occipital region- can have several in 1 day, and then may have a few days w/o an attack. She cannot reproduce this, even w/ palpation. She also reports a new cluster headache, which started in the last 3-4 months. She describes this headache as severe, left facial jolting pain, may feel it in the left occipital region, a/w with restlessness, left watery eyes, lasts 15-20 minutes may repeat 2-3 times a day. She is continuing to have nausea despite metoclopramide and zofran use. recently was tested for H. Pylori- as her family had it. Is not on an H2 benja or PPI. She has a psychiatrist and a therapist- especially to help with the depression she feels as triggered by her chronic health symptoms and inability to work. Pending consult: Patient has not had- [facility] consult which was scheduled in November of 2024. Consults completed: November 2024- ENT consult- hearing within normal limits 10/01/24, neuro-ophthalmology consult: no evidence of papilledema and was advised her to stop Acetazolamide, start Migranol supplement and a Mag L- threonate supplement, continue to work on wt loss- and close follow-up. January 2024- Dr Javon Vivas at [facility] [place], Pt was offered trigger point injection tx, but pt opted to do this more locally. January 2024- Юлия Bello MD- Pt states she was also told her headache was more cervicogenic and not r/t to elevated intracranial pressure as she does not have papilledema, thus she stopped Acetazolamide at that time. Previous work-up: 06/11/24, CT/CT head/brain wo IV con IMPRESSION: 1. No evidence of acute intracranial hemorrhage or edematous territorial infarction. 2. 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 04/15/24, [facility]UE EMG/NCS, IMPRESSION: 1. This is a normal study. 02/13/24, MR/MR cervical spine wo con IMPRESSION: -Suboptimal evaluation secondary to motion. Within this constraint, no high- grade spinal canal stenosis. Up to moderate bilateral neural foraminal stenosis at C4-C5. -Central disc extrusion at T1-T2 indents the ventral thecal sac with mild canal stenosis. -Heterogeneous marrow signal is indeterminate and may represent red marrow. Correlation with laboratory values is recommended. 02/05/24, US/US soft tiss head and/or neck IMPRESSION: Area of concern as indicated by the patient in the base of the neck on the right corresponds with a 0.8 cm lymph node. 10/25/23, MR/MR venography head wo/w con IMPRESSION: No cerebral venous thrombosis. Unremarkable MRV of the head. 10/01/23, MR/MR angio head wo con IMPRESSION: Normal MRA of the head. 09/20/23, In-lab PSG: AHI 9/hr, REM AHI 37/hr, O2 william 79% 09/15/23, [facility]10[facility], Lumbar Puncture: Opening pressure was 33 cm, w/ normal CSF studies. 08/08/2023?, Cervical Spine 4 or 5 Views FINDINGS: No evidence of fracture or dislocation. Mild bilateral foraminal stenosis at C3-C4 and C4-C5. IMPRESSION: Mild degenerative changes in the cervical spine are outlined above 07/06/2023, Brain MRI w/wo, IMPRESSION: 1. No evidence of acute/subacute infarction, mass effect, or abnormal enh ancement. 2. Borderline low cerebellar tonsils with slight crowding at the foramen magnum but without compression of the cervicomedullary junction. The appearance is unchanged compared to the MRI from 10 years ago. 3. A few scattered foci of nonspecific T2 signal abnormality are seen in the supratentorial white matter. [facility] Medical History Asthma Sleep apnea Hypertension IBS (irritable bowel syndrome) DVT (deep venous thrombosis) COVID-19 Diabetes Surgical History [place] teeth extracted Hx of carpal tunnel repair Hx of tonsillectomy Hx of knee surgery Family History Maternal Grandfather Substance abuse Heart attack Maternal Grandmother Stomach cancer Father Diabetes Asthma Mother Asthma Social History Household Members: Family Housing: House Do you presently have visiting nurse or other home services: No 75 years or older and lives alone: No Alcohol intake: never Patient Tobacco Use Status: Never used Tobacco e-Cigarette/Vaping Use: Never Used Advance Directives Date on File: 06/29/22 service: No Current occupational status: employed Cognitive needs: Yes Hearing needs: Yes Vision needs: Yes (wear glasses) Physical Exam Vital Signs: Last Vital Signs Pulse 80 02/26/25 11:04 BP 110/78 02/26/25 11:04 Pulse Ox 98 02/26/25 11:04 Oxygen Delivery Method Room Air 02/26/25 11:04 BMI result Body Mass Index 45.2 Const General: cooperative and no acute distress Orientation/consciousness: patient oriented x3 Resp Effort & Inspection: normal respiratory effort and able to speak in complete sentences Neuro Other: EOM- elicits dizziness, unwell sensation, At distance of approximately 6 in- Sees shadow of pen in right lateral and right lateral downgaze, at proximally 2 ft distance- sees shadow of pen in left lateral inferior visual field General: patient oriented x3 and moves all extremities Cranial nerves: Yes CN's II-XII intact bilaterally Cognition (Neuro): normal cognition Psych Appearance: grossly normal Mental Status: mental status grossly normal Speech and movement: Normal speech and movement present Affect: normal affect Attitude: cooperative Assessment & Plan Assessment & Plan (1) Chronic migraine without aura: Code(s): G43.709 - Chronic migraine without aura, not intractable, without status migrainosus Category: Medical Qualifiers: Intractability: not intractable Status migrainosus presence: without status migrainosus Qualified Code(s): G43.709 - Chronic migraine without aura, not intractable, without status migrainosus (2) Cluster headache: Code(s): G44.009 - Cluster headache syndrome, unspecified, not intractable Category: Medical Qualifiers: Headache chronicity pattern: episodic headache Intractability: not intractable Qualified Code(s): G44.019 - Episodic cluster headache, not intractable (3) Cervicalgia: Comment: With muscle spasm Code(s): M54.2 - Cervicalgia Category: Medical (4) Intracranial hypertension: Comment: No recent evidence of papilledema. Code(s): G93.2 - Benign intracranial hypertension Category: Medical (5) Dizziness: Code(s): R42 - Dizziness and giddiness Category: Medical (6) Chiari I malformation: Code(s): G93.5 - Compression of brain Category: Medical (7) Diplopia: Code(s): H53.2 - Diplopia Category: Medical Plan For overall headache and dizziness management: Track headaches. Continue to optimize good self-care, including but not limited to maintaining a healthy diet, adequate fluid intake, adequate sleep, and engaging in regular physical activity. Continue to work w/ PCP regarding diabetes and weight management Continue to hold PT- NIYA, Roland Carrington w/ [facility]azmin Dill PT. We will refer patientto [employer]- for online multi visit cognitive behavioral pain management therapy. Continue Sertraline 50 mg daily in a.m., managed by patient's psychiatrist. For mild RACHAEL: Pt has returned CPAP- was not tolerating well. Will monitor. For new onset left sided headache consistent with cluster headache: Patient is advised to undergo follow-up brain MRI with/without contrast, brain MRA without and brain MRV with/without contrast- to assess for secondary etiologies in setting of known history of intracranial hypertension, Chiari 1 malformation, diplopia, and persistent dizziness, headaches, nausea. Start home O2 at 15-25 L/min via non-rebreather facemask x's 15-20 minutes at onset of cluster headache attack. ?Patient will require both M tanks and E tanks. Start home Sphenopalatine Ganglion Block with Intranasal Lidocaine??2% viscous solution: Home Instructions for Intranasal Lidocaine/Sphenopalatine Ganglion Block * Do not take this by mouth. * This is for intranasal administration only * Draw up 1 ml of 2% viscous lidocaine into a thin 1ml dosing syringe (the syringe should be thin enough to be inserted deep into the nose).Self administer 1 mL of 2% viscous lidocaine solution into nasal passage on the same side as the head pain.?? * Lidocaine??may be administered into bilateral nasal passages if the headache/??facial pain is on both sides of the head. * Dose may be repeated x1 in 15 minutes. Max of 4 mL per nasal passage per day. Technique: * Lie down on your side curled up like a baby sleeping on its side, with your shoulder on the back of a firm pillow, and your head tilted back and rotated so you are looking up ~30 degrees. * Put the syringe into the lower nostril on the same side as your headache/facial pain, as far as it will comfortably go, with the tip pointing towards the outer (lateral) wall of the nostril. * Inject the contents of the syringe, and then sniff the medicine so that you feel it goes to the back of the nostril, but not into the throat. * If you feel burning or numbness into the eye, or if the eye tears, you know yo u have gotten the medicine where it needs to be. * Stay lying down with your head turned for 2 ? 3 minutes. * If your headache/facial pain is on both sides, roll over and repeat the procedure on the other side. Stay lying down for 2-3 minutes on this side. After sitting up: * When you sit up, whatever medicine has not been absorbed into your nose will roll back into your throat. * It will taste bitter and may make your throat numb. * Don?t eat or drink until the numbness has gone away ? otherwise you might swallow food or liquid into your windpipe. For further information, please review the following: Please note that some of the information below comes from [employer], which is an organization specific cluster headache. However, their explanation and video is applicable to migraine, trigeminal neuralgia and other facial pain??disorders. * cluster busters at home instruction link * https://[employer].com.org/resource/home-instructions -fki-ygpjqdzyzt-tembmltml-miuuzpujcdwkhy-pigxzivs-egkwx/ * instructional video * https://www.youtube.com/watch?v=o5C5y8z2C9J * alternate home instruction * chrome-extension://efaidnbmnnnibpcajpcglclefi ndmkaj/https://www.[facility].org/assets/[place]/headache-ce nter/documents/nasal-lidocaine.pdf If your pharmacy can not provide you the syringe, you can buy this siex-hdt-fjyrigv at a medical supply store or online. ?Specifically, you would need a sterile, individually wrapped, 1 mL syringe without needle or luer lock.. For cervicalgia in setting of cervical spondylosis: Neck pain and posterior neck swelling has increased despite PT and recent Botox injections, check C-spine MRI to check status of spinal canal stenosis. Trial Celebrex 100 mg every 12 hours Patient stopped baclofen due to inefficacy. Follow-up with pain management as scheduled ? For diplopia, blurry vision, depth perception difficulties, Chiari 1 malformation and history of IIH w/o papilledema: We will request ophthalmology consult specifically for diplopia evaluation. Pt has stopped acetazolamide, furosemide, and topiramate- per advice of ophthalmology. Follow-up with local component design engineer as scheduled Previous trials- Acetazolamide 125mg po tid- caused fatigue/numbness. ? For acute headache treatment: Continue Metoclopramide 5-10 mg as needed for nausea and/or migraine headache pain. Continue ondansetron 4-8 mg every 6-8 hours as needed for nausea For persistent nausea, we will start Pepcid 20 mg daily- for her to trial through scheduled initial GI consult in March. Continue Nurtec 75mg daily as needed. Previous acute migraine medication trials: Tylenol- ineffective. Excedrin- ineffective. Sumatriptan 100mg tab- ineffective. Cyclobenzaprine 10mg qhs- causes excess drowsiness. Rizatriptan- ineffective. Ubrelvy- ineffective. Eletriptan- not fully effective. Acute migraine medication contraindications: None at this time ? For stabbing headache: Patient has stopped indomethacin- ineffective at low-dose. Cover would not increase dose due to current c/o persistent nausea. Future considerations- Tegretol trial. ? For chronic migraine headache prevention medication: Continue Riboflavin 400mg daily in the morning May adjunct with Migranol 1 cap daily in the morning and Magnesium L-Threonate 1 cap daily at bedtime Continue Botox 155 units IM injection every 12 weeks for chronic migraine. Previous migraine prevention medication trials: Gabapentin- ineffective. Amitriptyline- ineffective. Emgality ineffective. Qulipta-had some benefit but not fully effective. Topiramate- ? Efficacy, stopped per ophthalmology. Migraine prevention medication contraindications: BBs d/t asthma dx ? Will follow-up upon review of above and patient to follow-up in clinic in 3-4 months or sooner prn. Orders: Orders MR head/brain wo/w con Today E66.01 - Morbid (severe) obesity due to excess calories, E66.813 - Obesity, class 3, G44.019 - Episodic cluster headache, not intractable, G93.2 - Benign intracranial hypertension, G93.5 - Compression of brain, H53.2 - Diplopia, Z68.41 - Body mass index [BMI] 40.0-44.9, adult MR venography head wo/w con Today G44.019 - Episodic cluster headache, not intractable, G93.2 - Benign intracranial hypertension, G93.5 - Compression of brain, H53.2 - Diplopia, R42 - Dizziness and giddiness MR cervical spine wo con Today M47.812 - Spondylosis without myelopathy or radiculopathy, cervical region, M54.2 - Cervicalgia, R42 - Dizziness and giddiness Referrals Psychology Referral G43.709 - Chronic migraine without aura, not intractable, without status migrainosus, M47.812 - Spondylosis without myelopathy or radiculopathy, cervical region, M54.2 - Cervicalgia Ophthalmology Referral H53.2 - Diplopia Medications: New Oxygen Home Use Start home O2 at 15-25 L/min via non-rebreather facemask x's 15- 20 minutes at onset of cluster headache attack. Patient will require both M tanks and E tanks. 2 ea 6RF G44.019 - Episodic cluster headache, not intractable famotidine (Pepcid) 20 mg PO BEDTIME 30 days 30 tabs 1RF celecoxib (Celebrex) 100 mg PO Q12H 30 days 60 caps 3RF lidocaine HCl 2% (Lidocaine Viscous) 1ml applied to left intranasal passage, MR x's 1 in 15 minutes. Max 4 doses (4ml) per nasal passage per day. 1 mL mucous membrane QID 30 days PRN 100 mL 1RF pain oral dosing syringes 1 mL syringes without needle. To be used as directed with viscous lidocaine intranasal order. 100 ea 6RF Discontinued baclofen Discontinued Reason: Patient no longer taking 20 mg (2 x 10 mg) PO BEDTIME 30 days 60 tabs 3RF indomethacin administer with food or milk Discontinued Reason: Patient no longer taking 25 mg PO TID 30 days 90 caps 3RF stabbing headache Coding Level of Care Code Est Pt Level 4 (37820) Complex EM visit Add On G2211 Diagnoses Chronic migraine without aura without status migrainosus, not intractable G43.709 Intractability: not intractable Status migrainosus presence: without status migrainosus Episodic cluster headache, not intractable G44.019 Headache chronicity pattern: episodic headache Intractability: not intractable Cervicalgia M54.2 Intracranial hypertension G93.2 Dizziness R42 Chiari I malformation G93.5 Diplopia H53.2
--- OUTSIDE RECORDS SUMMARY | 2025-02-26 11:18 | XMS_ITS | Data Portability ---
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 Referral None recorded . Procedures None recorded . Surgeries None recorded . Imaging [place], modified barium swallow study 2024 025 [facility] (Imaging), [address] [place] [address], [id number], 12/25/2024 09:56:43 Medication Orders None recorded . [...] Address Organization Details Recorded Time Bilateral tinnitus [id number] Active [address] [place], CCC-A [facility] [place], [place], [address], [facility] - [facility] 10:38:56 Chiari malformatio n 167896592 Active [address] [place], CCC-A 100 [facility],[address], [place], [address], [facility] - [facility] 10:39:04 Vertigo 182306934 Active [address] [place], CCC-A [address] [facility] [place], [place], [address], [facility] - [facility] 10:39:30 Oropharynge al dysphagia 98500985 Active 2024 JOSELO MELTON MD 100 [facility],[address], [place], [address], [facility] - [facility] 11:10:35 Problem Notes None recorded. Procedures Surgical History Date Name Laterality Status Provider Name and Address Organization Details Recorded Time 12/18/19 25 Air & Speech Audio with Tymps - 47422, 74869 & [address] [place], CCC-A [address] [facility] [place], [place], [address], [facility] - [facility] 12/18/2024 10:39:42 12/18/19 25 OAE distortion product, comprehensive - [address] [place], [facility] [address], [address], [place] - [facility] 12/18/2024 10:39:55 Imaging Results Imaging Date Name Status LastModified by Organiz ation Details LastModified Time 12/18/2024 audiogram completed BARCODE Information no t available 12/18/2024 12:00:53 Procedure Notes None recorded. Medical Equipment None Reported. Allergies Allergen ID Allergen Name Allergen Category Reaction Reaction Severity Criticality Documentation Date Start Date Code Code System Note Provider Name and Address Organization Details Recorded Time 946866 heparin medicatio n Not available Not available Not available 12/18/2024 5224 RxNorm Latonia haile [place] - [facility] 10:53:11 Medications Name Sig Start Date Stop [...] completed Not Available Not Available Not Available [facility] 75 mg disintegrat ing tablet DISSOLVE [...] Updated DateTime 12/18/2024 149.86 cm 44.4 kg/m2 69238.32 g Latonia John [place] - [facility] 12/18/2024 10:46:07 Social History None recorded. Functional [...] SNOMED-CT Code Diagnosis ICD10 Code Diagnosis Note 17608 JOSELO MELTON MD [facility] [address] [address] 12/18/2024 09:54:35 12/18/2024 11:14:35 Bilateral tinnitus 8099315126 102 H93.13 Audiologic al evaluation results: Right [...] at the test frequency. Chiari malformation 2531 05131 Q07.00 Vertigo 897235461 R42 Oropharyng eal dysphagia 78229250 R13.12 Health Concerns Section Related Observation LastModified by Organization Detai ls LastModified Time None Recorded Concern Status LastModified by Organization Details LastModified Time None Recorded Advance Directives Directive None Recorded Payers Insurance Date Sequence Insurance Name Policy Number Policy Cowan Covered Member ID Cowan Member ID Guarantor Name 12/18/2024 1 [facility] [id number] Susan Escobedo [id number] Susan Escobedo 02/17/2025 1 [facility] NET PLAN (MEDICAID HMO) [employer] Susan Escobedo [id number] Susan Escobedo Notes Date Note Type Note [...] due to sound sensitivity JOSELO MELTON MD [address] [place] [address], [place], [address], [facility] - [facility] 12/27/2024 13:17:13 OBGyn Episode No OBEpisode recorded.
--- OUTSIDE RECORDS SUMMARY | 2025-02-26 11:18 | XMS_ITS | Clinical Summary ---
Author Organization [facility] Address [address] [place] [address] Care Team Providers Care Cleaner Operator Name Role Phone Nicola Spears MD Primary Care Provider [phone] Surgical History Surgery Date Site/Laterality Comments CARPAL TUNNEL RELEASE PROCEDURE: MA NEUROPLASTY &/TRANSPOS MEDIAN NRV CARPAL TUNNE; COMMENT: bilateral TONSILLECTOMY PROCEDURE: HISTORICAL TONSILLECTOMY COLONOSCOPY 05/01/2018 PROCEDURE: OUTSIDE COLONOSCOPY; COMMENT: diminutive tubular adenoma polyp. random colonic bx normal. KNEE ARTHROSCOPY W/ MENISCAL REPAIR 12/11/2019 PROCEDURE: MA ARTHROSCOPY KNEE W/MENISCUS RPR MEDIAL/LATERAL; COMMENT: root repair; [facility] Medical History Medical History Date Comments [...] h BMI of 45.0-49.9, adult ([facility]) Tubular adenoma of colon 05/15/2018 DX:Tubu lar adenoma of colon Irritable bowel syndrome wit h diarrhea 08/05/2018 DX:Irritable bowel syndrome with diarrhea Moderate persistent asthma w ith acute exacerbation 01/05/2019 DX:Moderate persistent asthm a with acute exacerbation DM (diabetes mellitus), type 2 with renal complications ([facility]/HCC V24, [facility]/HCC V28) 04/29/2018 DX:DM (diabetes mellitus), t ype 2 with renal complications ([facility]) Family History Medical History Relation Name Comments [...] age to complete this topic Care Teams Cleaner Operator Relationship Specialty Start Date End Date Nicola Spears MD [address] [place] [address] PCP - General Internal Medicine 10/27/21
--- OUTSIDE RECORDS SUMMARY | 2025-02-26 11:18 | XMS_ITS | Data Portability ---
Author Organization [facility], [employer] Address [address] [place] [address] [place] [address] Care Team Providers Care Record Keeper Name Role Phone JAZMYNE LINDO Referring Provider [...] likely that the CSF assays sent by [facility] after September 10, 2023 lumbar puncture [...] find: Ophthalmology note, CSF results sent after [facility] Follow up after mrossen Not [...] likely that the CSF assays sent by [facility] after September 10, 2023 lumbar puncture [...] cervical spine without contrast February 13, 2024 [facility] radiology: Suboptimal evaluation secondary to motion. Within this constraint: The cervical spinal cord is normal in signal intensity. There is no high-grade central spinal canal stenosis. Up to moderate bilateral neuroforaminal stenosis at C4-5. MRV brain with and without IV contrast, [facility], compared to brain MRI December 17, 2018 and MR a head October 01, 2023 [facility]: No cerebral venous thrombosis, unremarkable study more generally. MRA head without contrast [facility] October 02, 2023: Normal. [id number] clear, colorless, WBC = 0, RBC = 12/8 [2 #4 presumably], glucose 106, total protein 25.1 serum: September 10 2023 glucose 210 test negative Lumbar puncture note [facility], September 10, 2023, for chief complaint [...] Lantus, ondansetron, rizatriptan PLAN Susan Escobedo [facility] March 24, 2024 She wants to think about whether she wants to continue working with me. She will call, and a week she thinks, if she does, and we agree that at that point I would look at [facility] interventional radiology and have her [...] By Organization Details Last Modified Time 01/27/2024 19379 Discussion acros s issues of diagnoses and management and same day associated chart review and management greater than 50% greater than 60 minutes [email or web address] Not available 01/27/2024 14:30:31 03/24/2024 47509 PREVIOUS DISCUSSION >>>>>>>>January 27, 2024 initial neurology [...] ast No observ ation record ed. [email or web address] [facility] [address] [place], [address], 03/25/2024 16:03:10 Result Notes None recorded. Procedures Surgical History Date Name Laterality Status Provider Name and Address Organization Details Recorded Time 03/24/2024 DATA REVIEW completed Ilya Mckeon MD [address] [place], [place] [address], [address], Formerly [facility] 03/24/2024 10:16:01 01/27/2024 DATA REVIEW completed Ilya Mckeon MD [address] [place], [place] [address], [address], Formerly [facility] 01/27/2024 14:11:59 Imaging Results Imaging Date Name Status LastModified by Organiz atmission hospital Details LastModified Time 07/06/2023 MRI, brain, [...] MRI, cervical spine, w/o contrast completed [email or web address] [facility] [address] [facility], [place], [address], 03/25/2024 16:03:10 Procedure Notes None recorded. Medical Equipment None Reported. Allergies Allergen ID Allergen Name Allergen Category Reaction Reaction Severity Criticality Documentation Date Start Date Code Code System Note Provider Name and Address Organization Details Recorded Time 3895 heparin medicatio n Not available Not available Not available 01/27/2024 5224 RxNorm Eli Vegas [facility] 13:24:25 Medications Name [...] Not Available Not Available No t Available FreeStRoovyn Zeynep 3 Sensor device USE DIRECTED FOR DIABETES. CHANGE EVERY 14 DAYS active Not Available Not Available No t Available Vitals Date Recorded Body height Body mass index (BMI) Body weight Respiratory rate Provider Name and Address Organization Details Last Updated DateTime 01/27/2024 149.86 cm 46 kg/m2 270919.06 g 12 /min Eli Vegas [facility] 01/27/2024 13:24:17 Social History Question Answer Notes LastModified by Organizat ion Details LastModified Time Tobacco Smoking Status Never Smoker Eli haile [facility] 01/27/2024 13:26:01 What Is Your Level Of Alcohol Consumption? None Information not available 01/27/2024 What Is Your Level Of Caffeine Consumption? Moderate 1 Cup Daily Information not available 01/27/2024 What Is The Highest Grade Or Level Of School You Have Completed Or The Highest Degree You Have Received? [id number] Information not available 01/27/2024 Which Of Your [...] B12 deficiency N PTSD N Heart Attack (TN) N Diabetes Y Bleeding Disorder N Cerebral [...] SNOMED-CT Code Diagnosis ICD10 Code Diagnosis Note [id number] Ilya Mckeon MD [facility] [address] [place] [address] [place] [address] 01/27/2024 12:43:24 01/27/2024 15:32:53 Benign intracranial hypertension 96265059 G93.2 Migraine without aura 56 479614 G43.009 [id number] Ilya Mckeon MD [facility] [address] [place] [address] [place] [address] 03/24/2024 09:45:33 03/24/2024 10:51:41 Benign intracranial hypertension 89077245 G93.2 Migraine without aura 56 695658 G43.009 Health Concerns Section Related Observation LastModified by Organization Detai ls LastModified Time None Recorded Concern Status LastModified by Organization Details LastModified Time None Recorded Advance Directives Directive None Recorded Payers Encounter Date Sequence Insurance Name Policy Number Policy Cowan Covered Member ID Cowan Member ID Guarantor Name 01/27/2024 1 [facility] [id number] Susan Escobedo [id number] Susan Escobedo 03/24/2024 1 [facility] [id number] Susan Escobedo [id number] Susan Escobedo Notes Date Note Type Note Provider Name and Address Organization Details Recorded Time 01/27/2024 text/html She presents for initial neurology consultation for assessment and management of June 26-2022, onset of persistent, dizziness, arm tingling, partially improved slurring, visual blurring, and on June 29 headache, which also persists, all preceded by 2000 23-day at [facility].She is accompanied by her sister, Gracie.Before June 26, 2023, she rarely got headaches, at most three times a year, and always mild. The only tingling she has ever had has been below her right knee and her right leg since right-sided knee meniscus surgery. She has generally not had visual blurring or speech slurring or dizziness.On 2023 she spent the day at the [facility]. 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 03/24/2024 10:46:08 OBGyn Episode No OBEpisode recorded.
== END 2025-02-26 12:10 | disposition home or self-care (01) ==
LOC: HO.HSMS 10:50
PROVIDERS: PCP Nurse Practitioner Family; Visit Provider Nurse Practitioner Family
DX: G93.5 Compression of brain (principal); M54.2 Cervicalgia; G93.2 Benign intracranial hypertension; R42 Dizziness and giddiness; H53.2 Diplopia; G43.709 Chronic migraine without aura, not intractable, without status migrainosus; G44.019 Episodic cluster headache, not intractable
CPT/HCPCS: 99214; G2211

== ENCOUNTER → 2025-02-26 10:49 | Outpatient (BNVA) | payer OTHER, SELFPAY | PROVIDERS: PCP Nurse Practitioner Family; Visit Provider Nurse Practitioner Family | DX: G44.009 Cluster headache syndrome, unspecified, not intractable (principal); G44.019 Episodic cluster headache, not intractable; G47.30 Sleep apnea, unspecified; G93.2 Benign intracranial hypertension; M54.2 Cervicalgia; H53.2 Diplopia; G93.5 Compression of brain | CPT/HCPCS: 99212 ==

== ENCOUNTER → 2025-03-09 08:05 | Outpatient (BNVA) | payer OTHER, SELFPAY | PROVIDERS: PCP Nurse Practitioner Family; Visit Provider Physician Assistant Surgical ==

== ENCOUNTER 2025-03-24 08:03 | Outpatient (AMB) | payer OTHER, SELFPAY ==
--- NOTE | 2025-03-24 08:18 | A.OFFVIS_ITS ---
VS Expanded 03/24/25 08:38 Height 4 ft 11 in Weight 220 lb BMI 44.4 Body Fat % 45.3 Body Fat Mass 99.6 Fat Free Mass 120.2 Visceral Fat Rating 14 Body Water % 39 Body Water Mass 85.8 Basal Metabolic Rate/Score 1,693 Intake Visit Reasons: [facility] Allergies Heparin Analogues [HEPARIN AGENTS] Allergy (Intermediate, Verified 03/24/25 08:18) HIVES, RASH, SEVERE BRUISING dulaglutide [From Trulicity] Allergy (Verified 03/24/25 08:18) Rash Medication List - Last Reconciled 03/24/25 by Luther Downing MD acetazolamide ER 500 mg PO DAILY albuterol sulfate 2.5 mg (3 mL) inhalation Q4-6H PRN albuterol sulfate 90 mcg/actuation (Ventolin HFA) 2 puffs inhalation QID PRN alprazolam 0.25 - 0.5 mg orally 1 tab 30 minutes prior to MRI, may repeat dose x's 1 (max 4 tabs in 1 day); 1 day MDD 1 mg blood sugar diagnostic (FreeStyle Lite Strips) daily blood-glucose sensor (FreeStyle Zeynep 3 Sensor device) As directed canagliflozin (Invokana) 300 mg PO DAILY celecoxib (Celebrex) 100 mg PO Q12H 30 days cholecalciferol (vitamin D3) 1,250 mcg PO QWEEK clonidine HCl 0.3 mg PO BID dupilumab (Dupixent) 300 mg (2 mL) subcut Q2W famotidine (Pepcid) 20 mg PO BEDTIME 30 days fluticasone furoate-vilanterol 200-25 mcg/dose (Breo Ellipta) 1 inh inhalation DAILY glyburide 5 mg PO BID insulin glargine (Lantus Solostar U-100 Insulin) 20 units (0.2 mL) subcut BID lidocaine HCl 2% (Lidocaine Viscous) 1 mL mucous membrane QID PRN 30 days magnesium L-threonate mg PO metoclopramide HCl 5 - 10 mg (1 - 2 x 5 mg) PO Q4-6H 30 days MDD 4 tabs onabotulinumtoxinA (Botox) 200 units IM ONCE 12 weeks ondansetron 4 - 8 mg (1 - 2 x 4 mg) PO Q6-8H PRN 30 days oral dosing syringes 1 mL syringes without needle. To be used as directed with viscous lidocaine intranasal order. Oxygen Home Use Start home O2 at 15-25 L/min via non-rebreather facemask x's 15- 20 minutes at onset of cluster headache attack. Patient will require both M tanks and E tanks. pen needle, diabetic (Ultra-Thin II Insulin Pen [place]) As directed riboflavin (vitamin B2) 400 mg PO DAILY 30 days rimegepant (Nurtec ODT) 75 mg PO Q OTHER DAY sertraline 50 mg PO DAILY thiamine HCl (vitamin B1) 50 mg (1/2 x 100 mg) PO DAILY tirzepatide (Mounjaro) 12.5 mg (0.5 mL) subcut QWEEK HPI HPI [facility]: Details: Start time: 8.03am, End time: 9.03am ?I spent 55 minutes speaking with the patient on the phone plus an additional 5 minutes reviewing and updating records for a total of 60 minutes HPI Comments Details: Previous weight loss efforts: WW, weight loss program, Mounjaro for 2 years with 3lbs [facility]) Wakes up: 8am, Sleeps: 8pm Breakfast: 9am (eggs) Lunch: 2pm (sandwich, salad) Dinner: 6pm (rice, beans, pasta, veggies) Snacks: 4pm (cheese crackers or popcorn) Exercise: Gym membership Beverages: Coffee: (16oz/d with splenda and cream), tea: rarely, soda: rarely diet soda, juice: Crystal light, ETOH: none PFSH Medical History (Updated 03/24/25 @ 08:29 by Luther Downing MD) GERD (gastroesophageal reflux disease) Pseudotumor cerebri Anxiety Depression Morbid obesity Asthma Sleep apnea Hypertension IBS (irritable bowel syndrome) DVT (deep venous thrombosis) COVID-19 Diabetes Surgical History [place] teeth extracted Hx of carpal tunnel repair Hx of tonsillectomy Hx of knee surgery Family History Maternal Grandfather Substance abuse Heart attack Maternal Grandmother Stomach cancer Father Diabetes Asthma Mother Asthma Social History (Updated 03/09/25 @ 08:43 by Lisa Colon, [employer]) Household Members: Family Housing: House Do you presently have visiting nurse or other home services: No 75 years or older and lives alone: No Alcohol intake: current Alcohol intake frequency: holidays/special occasions only Patient Tobacco Use Status: Never used Tobacco e-Cigarette/Vaping Use: Never Used Advance Directives Date on File: 06/29/22 service: No Current occupational status: employed Cognitive needs: Yes Hearing needs: Yes Vision needs: Yes (wear glasses) Telehealth Telehealth Telehealth Platform: Telephone Location of provider rendering services: practice address Location of patient: address on file Patient Identification confirmed using: Name, : Yes Telehealth method: voice only Patient verbally consented to treatment: Yes Patient verbally consented to billing insurance company: Yes Patient informed of any privacy concerns related to visit: Yes Minutes spent on Phone/Video with Pt.: 60 Assessment & Plan Assessment & Plan (1) Morbid obesity: Code(s): E66.01 - Morbid (severe) obesity due to excess calories Category: Medical Plan: 1. We discussed in detail the available therapeutic options: 1) our lifestyle intervention program that has an average weight loss of 10% in 3 months.? 2) Weight loss medications. It is not likely to be successful as she has been on Mounjaro for 2 years and lost 3 lbs and has persistent nausea issues. 3) We also discussed about the lap sleeve gastrectomy. I emphasized the importance of close follow-up, adherence to instructions and good communication. The surgery does not replace the need to change your lifestlyle which is the cause of the obesity problem. The surgery provides the motivation to try again to change your lifestyle, it reduces the appetite and make the transition to a better lifestyle easier and doubles the amount of weight you would lose compared to doing the lifestyle change without the surgery. You will need to be on a liquid diet with protein shakes for 2 weeks before surgery to maximize weight loss and boost your nutritional status to recover better from surgery and also for the first two w eeks after surgery to let the stomach heal before we introduce other foods. After the first 2 weeks we will introduce protein bars and soft foods like scrambled eggs, cottage cheese and yogurt and after the 6th week will introduce meat, fish and cooked vegetables in small amounts. Over time you should be able to eat everything in small amounts. Side effects like nausea, vomiting, heartburn or abdominal pain are not common in the practice unless you are not following in the practice. This operation requires lifetime commitment to following in our practice and communication with me. You will much less weight and experience side effects if you don?t communicate or not following in the practice. Complications are rare and in our practice is about 1/10 of the national average. The patient will discuss these options with her PCP and she will reach out to me with her decision.
[2025-03-24 08:38] VITALS: BMI 44.4
== END 2025-03-24 09:04 | disposition home or self-care (01) ==
LOC: HO.HBS 08:03
PROVIDERS: PCP Nurse Practitioner Family; Visit Provider Surgery
DX: E66.01 Morbid (severe) obesity due to excess calories (principal)
CPT/HCPCS: 99204

== ENCOUNTER → 2025-03-24 08:03 | Outpatient (BNVA) | payer OTHER, SELFPAY | PROVIDERS: PCP Nurse Practitioner Family; Visit Provider Surgery ==

== ENCOUNTER 2025-03-25 12:47 | Outpatient (REF) | payer OTHER, SELFPAY ==
--- NOTE | ~2025-03-25 | MR_ITS ---
CLINICAL HISTORY: G44.019 - Episodic cluster headache, not intractable MR Brain with and without gadolinium Comparison: None Findings: No restricted diffusion. No intra-axial mass or hemorrhage. No midline shift. No hydrocephalus. Vascular flow voids are intact. Few tiny foci of T2 signal prolongation within the white matter, for example axial 18 of the FLAIR sequence. No abnormal postcontrast enhancement. The sagittal view, the cerebellar tonsils extend below the foramen magnum by approximately 4 mm. Orbital contents are unremarkable. The sinuses and mastoid air cells are clear. No focal bone lesion. IMPRESSION: No acute findings. Borderline low-lying cerebellar tonsils, which extend approximately 4 mm below the foramen magnum. A few tiny scattered foci of T2 signal prolongation within the white matter are nonspecific. This is likely within normal limits for age and can be seen with migraine syndromes. This document has been electronically signed by: Jordan Frias MD on 03/26/2025 11:40:25
--- NOTE | ~2025-03-25 | MR_ITS ---
CLINICAL HISTORY: G44.019 - Episodic cluster headache, not intractable MR Angiography head without gadolinium Comparison: None Findings Intracranial internal carotid arteries are normal. Vertebrobasilar system is normal. Cerebral arteries are patent. Visualized cerebellar arteries are patent. IMPRESSION: Normal MRA brain This document has been electronically signed by: Jordan Frias MD on 03/26/2025 11:43:32
--- NOTE | ~2025-03-25 | MR_ITS ---
CLINICAL HISTORY: G44.019 - Episodic cluster headache, not intractable --- Additional Notes or Specia l Instructions: Please include MRA head MR Venography head with and without gadolinium Comparison: None Findings: Hypoplastic left transverse sinus, otherwise patent sagittal, transverse, sigmoid, inferior sagittal and straight sinuses. Patent internal cerebral and basal veins. Internal jugular veins are patent. IMPRESSION: Hypoplastic left transverse sinus, normal variant. Patent dural venous sinuses. This document has been electronically signed by: Jordan Frias MD on 03/26/2025 11:49:36
--- NOTE | ~2025-03-25 | MR_ITS ---
EXAMINATION: MR CERVICAL SPINE WITHOUT CONTRAST TECHNIQUE: Multiplanar multisequence imaging through the cervical spine was performed from the base of the skull through at least T1. 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 Cord: There is no abnormal cord signal or hydrosyringomyelia. Marrow and end-plates: 8 mm lesion in posterior inferior T3 vertebral body demonstrates high signal on T1 and T2 to sequences consistent with a benign vertebral hemangioma. Marrow signal is diffusely lower signal than disc signal on T1 imaging. Alignment: There is straightening of cervical lordosis. Soft tissues: Paraspinal soft tissues and major vascular structures are unremarkable. C2-3: There is no disc bulge, herniation, spinal stenosis, or foraminal narrowing. C3-4: Broad-based disc bulge and endplate osteophytes results in mild spinal stenosis. There is also mild facet hypertrophy. These contribute to moderate bilateral foraminal narrowing. Not as well demonstrated on the prior. C4-5: Minimal disc bulge results in mild spinal stenosis. Disc osteophyte complex and left foraminal extrusion results in moderate bilateral foraminal narrowing. Unchanged. C5-6: Broad-based disc bulge results in borderline mild spinal stenosis. There is mild bilateral foraminal narrowing, better resolved on the current study. C6-7: Minimal broad-based disc bulge is evident without spinal stenosis and with minimal foraminal narrowing. Stable. C7-T1: There is no disc bulge, herniation, spinal stenosis, or foraminal narrowing. T1-2: Central disc extrusion thecal sac resulting in mild spinal stenosis without foraminal narrowing, similar to the prior. Extrusion measures 10 mm superior to inferior and 5 mm anterior-posterior MR/MR cervical spine wo con IMPRESSION: Diffusely abnormal marrow signal. This could be related to a marrow replacing process including malignancy. C3-4: There is mild spinal stenosis and moderate bilateral foraminal narrowing. C4-5: There is mild spinal stenosis and left foraminal herniation resulting in moderate bilateral foraminal narrowing. Unchanged. C5-6: There is mild spinal stenosis and mild bilateral foraminal narrowing. T1-2: 10 x 5 mm (CC by AP) Central disc herniation results in mild spinal stenosis. Electronically signed by: Cliff Krishna MD 03/25/2025 06:37 PM EDT
[2025-03-25] MEDS: gadobutroL 10 ML VIAL IVPUSH (15:22)
== END 2025-03-25 12:48 | disposition home or self-care (01) ==
LOC: HO.MRI 12:47
PROVIDERS: PCP Nurse Practitioner Family; Visit Provider Nurse Practitioner Family
DX: M54.81 Occipital neuralgia (principal); M47.812 Spondylosis without myelopathy or radiculopathy, cervical region; M54.2 Cervicalgia; G44.019 Episodic cluster headache, not intractable; H53.2 Diplopia; E66.813 Obesity, class 3; E66.01 Morbid (severe) obesity due to excess calories; Z68.41 Body mass index [BMI] 40.0-44.9, adult; G93.5 Compression of brain; G93.2 Benign intracranial hypertension; R42 Dizziness and giddiness
CPT/HCPCS: 70544; 70546; 70553; 72141; A9585

== ENCOUNTER → 2025-03-25 13:01 | Outpatient (BNV) | payer OTHER, SELFPAY | PROVIDERS: PCP Nurse Practitioner Family; Visit Provider Radiology Diagnostic Radiology | DX: G44.019 Episodic cluster headache, not intractable (principal) | CPT/HCPCS: 70544; 70546; 70553 ==

== ENCOUNTER 2025-04-07 10:21 | Outpatient (AMB) | payer OTHER, SELFPAY ==
--- NOTE | 2025-04-07 10:23 | AM.OFFWIN_ITS ---
Intake Vital Signs 04/07/25 10:28 Height 4 ft 11 in BMI Reason not done Patient refused/unable BP 132/72 Blood Pressure Location Rt brachial Position Sitting Respiration 12 Pulse 90 Pulse Source Pulse Oximeter Temp 97.5 F Temp Source Oral Pulse Oximetry (%) 99 Oxygen Delivery Method Room Air Intake Visit Reasons: both legs pain Intake Note: Patient c/o px on both legs and pin and needle, burning on both legs since yesterday and worse when walking. Patient Tobacco Use Status: Never used Tobacco Allergies Heparin Analogues (HEPARIN AGENTS) Allergy (Intermediate, Verified 04/07/25 10:49) HIVES, RASH, SEVERE BRUISING dulaglutide (From Trulicity) Allergy (Verified 04/07/25 10:49) Rash Medication List - Last Reconciled 04/07/25 by JASWANT Davies- acetazolamide ER 500 mg PO DAILY albuterol sulfate 2.5 mg (3 mL) inhalation Q4-6H PRN albuterol sulfate 90 mcg/actuation (Ventolin HFA) 2 puffs inhalation QID PRN alprazolam 0.25 - 0.5 mg orally 1 tab 30 minutes prior to MRI, may repeat dose x's 1 (max 4 tabs in 1 day); 1 day MDD 1 mg blood sugar diagnostic (FreeStyle Lite Strips) daily blood-glucose sensor (FreeStyle Zeynep 3 Sensor device) As directed canagliflozin (Invokana) 300 mg PO DAILY celecoxib (Celebrex) 100 mg PO Q12H 30 days cholecalciferol (vitamin D3) 1,250 mcg PO QWEEK clonidine HCl 0.3 mg PO BID dupilumab (Dupixent) 300 mg (2 mL) subcut Q2W famotidine (Pepcid) 20 mg PO BEDTIME 30 days fluticasone furoate-vilanterol 200-25 mcg/dose (Breo Ellipta) 1 inh inhalation DAILY galcanezumab-gnlm (Emgality) 300 mg (3 mL) subcut Q30D 30 days glyburide 5 mg PO BID insulin glargine (Lantus Solostar U-100 Insulin) 20 units (0.2 mL) subcut BID lidocaine HCl 2% (Lidocaine Viscous) 1 mL mucous membrane QID PRN 30 days magnesium L-threonate mg PO metoclopramide HCl 5 - 10 mg (1 - 2 x 5 mg) PO Q4-6H 30 days MDD 4 tabs onabotulinumtoxinA (Botox) 200 units IM ONCE 12 weeks ondansetron 4 - 8 mg (1 - 2 x 4 mg) PO Q6-8H PRN 30 days oral dosing syringes 1 mL syringes without needle. To be used as directed with viscous lidocaine intranasal order. Oxygen Home Use Start home O2 at 15-25 L/min via non-rebreather facemask x's 15- 20 minutes at onset of cluster headache attack. Patient will require both M tanks and E tanks. pen needle, diabetic (Ultra-Thin II Insulin Pen [place]) As directed riboflavin (vitamin B2) 400 mg PO DAILY 30 days rimegepant (Nurtec ODT) 75 mg PO Q OTHER DAY sertraline 50 mg PO DAILY thiamine HCl (vitamin B1) 50 mg (1/2 x 100 mg) PO DAILY tirzepatide (Mounjaro) 12.5 mg (0.5 mL) subcut QWEEK Held on 02/17/25. 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 Colon ? 09/2024 Mammo WNL ? PAP due for pap, has IUD placed 3 years ago. ? Tdap 2018, declined flu 08/21/24 [facility] exam nega tive for DM retinopathy bilat; Glaucoma suspect. Exam 10/2024 reports WNL this was done to eval blurred vision. Specialists: [facility] first appt December 2024 [facility] [facility] Pulm Ophthalmology: 07/07/24 [facility], DM Eye negative for retinopathy, visit q3mo [facility] [place] [facility] [place] appts in Nov Here today w/ c/o pain, tingling and restlessness of BLE that started yesterday Saturday she started wt loss shakes, taking 4 x per day otherwise she has had no changes She wonders if the shakes are causing her sx Affecting from above ankles to the area of knees Denies systemic sx such as fever, chills, chest pain, etc. Results 02/03/25 Laboratory Result Units Range Interpretation Provider Comments Sodium Level 137 mmol/L (135-145) Potassium Level 4.3 mmol/L (3.3-5.1) Chloride Level 104 mmol/L (96-108) Carbon Dioxide Lev el 25 mmol/L (22-29) Anion Gap 12 (12-20) Blood Urea Nitroge n 8 mg/dL (9-16) Low Creatinine 0.69 mg/dL (0.5-1.4) Estimated Creatini ne Clearance Calc Not Reportable Estimat Glomerular Filtration Rate > 60 Fasting Glucose 251 mg/dL (60-99) High Calcium Level 9.3 mg/dL (8.4-10.2) Total Bilirubin 0.7 mg/dL (0.0-1.0) Aspartate Amino Tr ansf (AST/SGOT) 21 U/L (5-31) Alanine Aminotrans ferase (ALT/SGPT) 43 U/L (0-31) High Alkaline Phosphata se 74 U/L (39-117) Total Protein 6.9 g/dL (6.5-8.0) Albumin 4.0 g/dL (3.5-5.0) Physical Exam Awake alert NAD BLE with decreased reflexes worse on the R, normal strength and tone, normal pulses, skin intact, no edema. normal babinski L, unable to elicit response on the R. There was no toe flaring. Amb w/ antalgic gait Swinging legs about, reporting painful to keep them still. Plan She is a medically complex patient Plan will be to check labs to see if the shakes she is taking is contributing If labs + ,will treat as approp. If neg, will order MRI of LS Spine to eval for cause. Edu on reasons to seek additional care Stay off shakes for now. Hydrate liberally. Total time spent caring for the patient today was 45 minutes. This includes time spent before the visit reviewing the chart, time spent during the visit, and time spent after the visit on documentation, reviewing laboratory results, diagnostic imaging, medications, performing a medically necessary evaluation, counseling on diagnoses, care coordination, ordering appropriate tests, ordering appropriate medications, review of tests performed by other providers, reporting test results with the patient, communication with other healthcare providers. [facility] Medical History (Updated 04/07/25 @ 10:55 by Madison Travis [facility]) Anxiety Asthma COVID-19 Depression Diabetes DVT (deep venous thrombosis) GERD (gastroesophageal reflux disease) Hypertension IBS (irritable bowel syndrome) Morbid obesity Pseudotumor cerebri Sleep apnea Surgical History Hx of carpal tunnel repair Hx of knee surgery Hx of tonsillectomy [place] teeth extracted Family History Maternal Grandfather Substance abuse Heart attack Maternal Grandmother Stomach cancer Father Diabetes Asthma Mother Asthma Social History (Updated 03/09/25 @ 08:43 by Lisa Hill [facility]) Household Members: Family Housing: House Do you presently have visiting nurse or other home services: No 75 years or older and lives alone: No Alcohol intake: current Alcohol intake frequency: holidays/special occasions only Patient Tobacco Use Status: Never used Tobacco e-Cigarette/Vaping Use: Never Used Advance Directives Date on File: 06/29/22 service: No Current occupational status: employed Cognitive needs: Yes Hearing needs: Yes Vision needs: Yes (wear glasses) Physical Exam Vital Signs: Last Vital Signs Temp 97.5 F 04/07/25 10:28 Pulse 90 04/07/25 10:28 Resp 12 04/07/25 10:28 BP 132/72 04/07/25 10:28 Pulse Ox 99 04/07/25 10:28 Oxygen Delivery Method Room Air 04/07/25 10:28 Assessment & Plan Assessment & Plan (1) RLS (restless legs syndrome): Code(s): - Restless legs syndrome Plan . Orders: Orders IRON PROFILE Today - Restless legs syndrome Vitamin B12 and Folate Today - Restless legs syndrome Vitamin B5 (Pantothenic Acid) Today - Restless legs syndrome Vitamin B3 (Niacin) Today - Restless legs syndrome Complete Blood Count no Diff Today - Restless legs syndrome Comprehensive Met. Panel Today - Restless legs syndrome Ferritin Today G2 - Restless legs syndrome Vitamin D 25-OH Total Today G2 - Restless legs syndrome Vitamin B6 Today - Restless legs syndrome Vitamin C Today - Restless legs syndrome Vitamin B1 Today - Restless legs syndrome Vitamin B2 (Riboflavin) Today - Restless legs syndrome Magnesium Today - Restless legs syndrome Coding Level of Care Code Est Pt Level 5 (04842) Diagnoses RLS (restless legs syndrome)
[2025-04-07 10:28] VITALS: BP 132/72; PULSE 90; RESP 12; TEMP 36.4; O2SAT 99
--- OUTSIDE RECORDS SUMMARY | 2025-04-07 11:45 | XMS_ITS | Data Portability ---
Author Organization [facility] [place], [employer] Address [address] [place] [address] [place] [address] Care Team Providers Care Director Industrial Name Role Phone JAZMYNE LINDO Referring Provider JAZMYNE LINDO Primary Care Provider [phone] Assessment Encounter Date Assessment Date Assessment LastModified [...] likely that the CSF assays sent by [facility] after September 10, 2023 lumbar puncture [...] resulting in false positive, predominantly with the positioning body should be straight, not curled up and with making sure there is no Valsalva by the patient. Medications per patient inhalers, topiramate, acetazolamide, magnesium, riboflavin, Emgality, Jardiance, Lantus, ondansetron, rizatriptan PLAN Susanjermaine Escobedo ([facility] January 27, 2024 We will find: Ophthalmology note, CSF results sent after [facility] Follow up after mrossen Not [...] likely that the CSF assays sent by [facility] after September 10, 2023 lumbar puncture [...] spine without contrast February 13, 2024 [facility]: Suboptimal evaluation secondary to motion. Within this constraint: The cervical spinal cord is normal in signal intensity. There is no high-grade central spinal canal stenosis. Up to moderate bilateral neuroforaminal stenosis at C4-5. MRV brain with and without IV contrast, [facility], compared to brain MRI December 17, 2018 and MR a head October 01, 2023 [facility]: No cerebral venous thrombosis, unremarkable study more generally. MRA head without contrast [facility] October 02, 2023: Normal. [id number] clear, colorless, WBC = 0, RBC = 12/8 [2 #4 presumably], glucose 106, total protein 25.1 serum: September 10 2023 glucose 210 test negative Lumbar puncture note [facility], September 10, 2023, for chief complaint [...] increased pressure suggests diagnosis of idiopathic intracranial hypertension in the context of the unrevealing MRV. However, ophthalmology June 2023 consultation does not find papilledema. The patient mentions that they had a repeat ophthalmology evaluation in August and the diagnosis did not change. My recommendation then is as I thought at initial consultation: Repeat lumbar puncture to see if there is normal pressure and that the opening pressure measured September 10, 2024 was a false positive. Medications per patient inhalers, topiramate, acetazolamide, magnesium, riboflavin, Emgality, Jardiance, Lantus, ondansetron, rizatriptan PLAN Susan Escobedo ([facility]), March 24, 2024 She wants to think about whether she wants to continue working with me. She will call, and a week she thinks, if she does, and we agree that at that point I would look at [facility] interventional radiology and have her follow-up to discuss the results after with me. terrance Not available 03/24/2024 10:45:48 Plan of Treatment [...] By Organization Details Last Modified Time 01/27/2024 23240 Discussion acros s issues of diagnoses and management and same day associated chart review and management greater than 50% greater than 60 minutes terrance Not available 01/27/2024 14:30:31 03/24/2024 47958 PREVIOUS DISCUSSION >>>>>>>>January 27, 2024 initial neurology [...] resulting in false positive, predominantly with the positioning body should be straight, not curled up and with making sure there is no Valsalva [...] ation record ed. Not Available 2023 13:01:53 01/27/20 24 08/22/2022 CT, angio gram, heart , w/ contr ast No observ ation record ed. Not Available 2023 12:57:44 03/24/20 24 02/13/2024 MRI, cervi tomeka spine , w/o contr ast No observ ation record ed. [email or web address] [facility] [address] [facility], [place], [address], 03/25/2024 16:03:10 Result Notes None recorded. Procedures Surgical History Date Name Laterality Status Provider Name and Address Organization Details Recorded Time 03/24/2024 DATA REVIEW completed Ilya Mckeon MD [address] [place] [address], [phone], [facility] 03/24/2024 10:16:01 01/27/2024 DATA REVIEW completed Ilya Mckeon MD [address] [place] [address], [phone], [facility] 01/27/2024 14:11:59 Imaging Results None recorded. Procedure Notes None recorded. Medical Equipment None Reported. Allergies Allergen ID Allergen Name Allergen Category Reaction Reaction Severity Criticality Documentation Date Start Date Code Code System Note Provider Name and Address Organization Details Recorded Time 3895 heparin medicatio n Not available Not available Not available 01/27/2024 5224 RxNorm Eli Vegas [facility] 13:24:25 Medications Name Sig Start Date Stop [...] Ultra-Fine Mini Pen Needle 31 gauge x 16 USE TO ADMINISTER INSULIN TWICE DAILY active [...] Updated DateTime 01/27/2024 149.86 cm 46 kg/m2 239177.06 g 12 /min Eli Vegas [facility] 01/27/2024 13:24:17 Social History Question Answer Notes LastModified by Organizat ion Details LastModified Time Tobacco Smoking Status Never Smoker Eli haile [facility] 01/27/2024 13:26:01 What Is Your Level Of Caffeine Consumption? Moderate 1 Cup Daily Information not available 01/27/2024 What Is The Highest Grade Or Level Of School You Have Completed Or The Highest Degree You Have Received? [id number] Information not available 01/27/2024 Which Of Your Hands Is Dominant? Right Information not available 01/27/2024 Sex: Unknown Functional Status Question Answer Note LastModified by Organization D etails LastModified Time What is your level of alcohol consumption? None Information not available 01/27/2024 Mental Status None recorded. Family History Relationship [...] N Vitamin B12 deficiency N Heart Attack ([place]) N Spine Problems N Obstructive Sleep Apnea [...] SNOMED-CT Code Diagnosis ICD10 Code Diagnosis Note [id number] Ilya Mckeon MD [facility] [address] [place] [address] [place] [phone] 01/27/2024 12:43:24 01/27/2024 15:32:53 Benign intracranial hypertension 23715097 G93.2 Migraine without aura 56 835180 G43.009 [id number] Ilya Mckeon MD [facility] [address] [place] [address] [place] [address] 03/24/2024 09:45:33 03/24/2024 10:51:41 Benign intracranial hypertension [id number] G93.2 Migraine without aura 56 100103 G43.009 Health Concerns Section Related Observation LastModified by Organization Liamgwen ls LastModified Time None Recorded Concern Status LastModified by Organization Details LastModified Time None Recorded Advance Directives Directive None Recorded Payers Insurance Date Sequence Insurance Name Policy Number Policy Cowan Covered Member ID Cowan Member ID Guarantor Name 04/01/2024 1 [facility] [id number] Susan Escobedo [id number] Susan Escobedo Notes Date Note Type Note Provider Name and Address Organization Details Recorded Time 01/27/2024 text/html She presents for initial neurology consultation for assessment and management of June 26-2022, onset of persistent, dizziness, arm tingling, partially improved slurring, visual blurring, and on June 29 headache, which also persists, all preceded by 2000 23-day at the [facility].She is accompanied by her sister, Gracie.Before June [...] note) after which neurology (JASWANT Rock) at [facility] gave her a diagnosis of idiopathic intracranial hypertension and started acetazolamide. She had two or 3 days of 50% reduction of intense head pain and 50% reduced speech slurring after the LP. Headache then returned back to intense baseline but the reduced speech slurring did not worsen. She has no side effects to acetazolamide.She subsequently titrated topiramate October through beginning of December, up to 100 mg twice a day, [...] less than previously, 50% Ilya Mckeon MD [address] [place] [address], [phone], [facility] 01/27/2024 16:54:01 03/24/2024 text/html Follow up of June 26-2022, onset of persistent, dizziness, arm tingling, partially improved slurring, visual blurring, and on June 29 headache, which also persists, all preceded by 2000 23-day at the [facility].She is accompanied by her sister, Gracie. >>>>>>>>>March 24, 2024Since January 27, 2024 initial neurology consultation, she reports no new or changing symptomatology. She has had an MRI cervical spine and a soft tissue neck ultrasound following up physical therapy concerned about a swelling in her neck this was identified by the ultrasound as a [...] note) after which neurology (JASWANT Rock) at [facility] gave her a diagnosis of [...] than previously, 50% Ilya Mckeon MD [address] [place] [address] [place], [phone], [facility] 03/24/2024 10:46:08 OBGyn Episode No OBEpisode recorded.
== END 2025-04-07 15:54 | disposition home or self-care (01) ==
LOC: HO.HMCFM 10:22
PROVIDERS: PCP Nurse Practitioner Family; Visit Provider Nurse Practitioner Family
DX: G25.81 Restless legs syndrome (principal)

== ENCOUNTER 2025-04-07 11:32 | Outpatient (REF) | payer OTHER, SELFPAY ==
[2025-04-07 11:55] LABS: MANUAL DIFF FLAG NO
[2025-04-07 12:39] LABS: Basophils Percent Auto 0.5 % (0-2); Eosinophils Absolute Auto 0.4 X10*3/uL (0.0-0.4); Eosinophils Percent Auto 5.5 % (0-4); Hematocrit 41.2 % (37.0-47.0); Imm Gran Abs Auto 0.04 X10*3/uL (0.00-0.03); Imm Gran Pct Auto 0.5 % (0.0-0.4); Lymphocytes Absolute Auto 2.4 X10*3/uL (1.2-4.9); Lymphocytes Percent Auto 30.4 % (20-40); Mean Corpuscular Hemoglobin 30.4 pg (27.0-33.0); Mean Corpuscular Volume 89.4 fL (80.0-98.0); Mean Platelet Volume 9.5 fL (9.4-12.3); Monocytes Absolute Auto 0.5 X10*3/uL (0.1-1.2); Monocytes Percent Auto 6.7 % (2-11); Neutrophils Absolute Auto 4.4 x10*3/uL (2.0-8.3); Neutrophils Percent Auto 56.4 % (45-73); Platelet Count 259 X10*3/uL (160-400); Red Blood Count 4.61 X10*6/uL (4.20-5.50); Red Cell Distribution Width 12.2 % (11.0-16.0); White Blood Count 7.8 X10*3/uL (4.8-10.8)
[2025-04-07 12:40] LABS: Hematocrit 40.2 % (37.0-47.0); Hemoglobin 13.9 g/dl (12.0-16.0); Mean Corpuscular HGB Conc 34.6 g/dl (31.0-35.0); Mean Corpuscular Hemoglobin 30.5 pg (27.0-33.0); Mean Corpuscular Volume 88.2 fL (80.0-98.0); Mean Platelet Volume 9.3 fL (9.4-12.3); Platelet Count 253 X10*3/uL (160-400); Red Blood Count 4.56 X10*6/uL (4.20-5.50); Red Cell Distribution Width 12.1 % (11.0-16.0); White Blood Count 7.7 X10*3/uL (4.8-10.8)
[2025-04-07 13:04] LABS: Alanine Aminotransferase 37 U/L (0-31); Alkaline Phosphatase 66 U/L (39-117); Anion Gap 10 (12-20); Aspartate Amino Transferase 24 U/L (5-31); Bilirubin Total 0.5 mg/dL (0.0-1.0); Blood Urea Nitrogen 12 mg/dL (9-16); Calcium 9.4 mg/dL (8.4-10.2); Carbon Dioxide 27 mmol/L (22-29); Chloride 105 mmol/L (96-108); Estimated Glomerular Filt Rate > 60; Glucose Random 300 mg/dL (60-115); Iron 85 mcg/dL (30-160); Magnesium 1.9 mg/dL (1.6-2.6); Percent Iron Saturation 35 % (15-50); Potassium 4.2 mmol/L (3.3-5.1); Sodium 138 mmol/L (135-145); Total Iron Binding Capacity 245 mcg/dL (228-428); Total Protein 6.6 g/dL (6.5-8.0); Unsaturated Iron Binding 160 ug/dL
[2025-04-07 13:08] LABS: Alanine Aminotransferase 42 U/L (0-31); Albumin Level 4.1 g/dL (3.5-5.0); Alkaline Phosphatase 65 U/L (39-117); Anion Gap 11 (12-20); Aspartate Amino Transferase 25 U/L (5-31); Bilirubin Total 0.6 mg/dL (0.0-1.0); Blood Urea Nitrogen 13 mg/dL (9-16); Calcium 9.4 mg/dL (8.4-10.2); Carbon Dioxide 27 mmol/L (22-29); Chloride 104 mmol/L (96-108); Estimated Glomerular Filt Rate > 60; Glucose Random 300 mg/dL (60-115); Potassium 4.2 mmol/L (3.3-5.1); Sodium 138 mmol/L (135-145); Total Protein 6.6 g/dL (6.5-8.0)
[2025-04-07 13:24] LABS: Ferritin 317 ng/mL (10-250); Vitamin D 25-OH Total 36.2 ng/mL (>30)
[2025-04-07 13:35] LABS: Folate 10.5 ng/mL (> or = 4.0); Vitamin B12 419 pg/mL (200-900)
[2025-04-11 09:49] LABS: Nicotinamide <20 ng/mL (see note); Vit B3 - Nicotinic Acid <20 ng/mL (see note); Vitamin B2 (Riboflavin) 17.5 nmol/L (6.2-39.0); Vitamin B5 (Pantothenic Acid) 52 ng/mL (<275)
[2025-04-11 13:38] LABS: Vitamin B1 13 nmol/L (8-30)
[2025-04-14 05:18] LABS: Vitamin B6 7.7 ng/mL (2.1-21.7)
== END 2025-04-07 11:33 | disposition home or self-care (01) ==
LOC: HO.LAB 11:32
PROVIDERS: Nurse Practitioner Family; PCP Nurse Practitioner Family; Visit Provider Nurse Practitioner Family
DX: G93.2 Benign intracranial hypertension (principal); R42 Dizziness and giddiness; G44.019 Episodic cluster headache, not intractable; E66.01 Morbid (severe) obesity due to excess calories; Z68.42 Body mass index [BMI] 45.0-49.9, adult; E11.8 Type 2 diabetes mellitus with unspecified complications; G25.81 Restless legs syndrome
CPT/HCPCS: 36415; 80053; 82306; 82607; 82728; 82746; 83540; 83735; 84207; 84252; 84425; 84591; 85025; 85027; 99212

== ENCOUNTER 2025-04-08 13:07 | Outpatient (REF) | payer OTHER, SELFPAY ==
[2025-04-13 05:17] LABS: Vitamin C 0.4 mg/dL (0.3-2.7)
== END 2025-04-08 13:08 | disposition home or self-care (01) ==
LOC: HO.LAB 13:07
PROVIDERS: PCP Nurse Practitioner Family; Visit Provider Nurse Practitioner Family
DX: G62.81 Critical illness polyneuropathy (principal)
CPT/HCPCS: 36415; 82180

== ENCOUNTER 2025-04-20 08:52 | Outpatient (AMB) | payer OTHER, SELFPAY ==
[2025-04-20 09:03] VITALS: BMI 44.6
--- NOTE | 2025-04-20 09:03 | A.OFFVIS_ITS ---
VS Expanded 04/20/25 09:03 Height 4 ft 11 in Weight 220 lb 10.923 oz BMI 44.6 Intake Visit Reasons: T2DM Allergies Heparin Analogues (HEPARIN AGENTS) Allergy (Intermediate, Verified 04/07/25 10:49) HIVES, RASH, SEVERE BRUISING dulaglutide (From Trulicity) Allergy (Verified 04/07/25 10:49) Rash Nutrition Presentation Details: Pt presents for MNT f/u for T2DM with Chiari malformation with nausea symptoms Pt reports symptoms of nausea continue working on choosing lower carb protein shakes pt acknowledges increased carb intake when stressed/emotional eating Working with Wt management and reports having protein shakes 4 a day (1 to 1 1/2 scoop orgain protein made with oatmilk and berries)and 6 full forks of chicken or beef with 6-8 forks of vegetables, Pt reports consuming 54 oz of water with no sugar flavor added ) per day. Pt reports feeling very hungry at night , stomach growling , discusses foods cravings vomiting/diarrhea denies per BG record 14 d bg average 211 ( 34% within target, 43% high, 23 % very high) pt working with PCP closely with dm med management BS Monitoring Most Recent Diabetes Results: Creatinine, (0.5-1.4) 0.58 mg/dL 04/07/25 BUN, (9-16) 13 mg/dL 04/07/25 Sodium, (135-145) 138 mmol/L 04/07/25 Potassium, (3.3-5.1) 4.2 mmol/L 04/07/25 Chloride, (96-108) 104 mmol/L 04/07/25 Carbon Dioxide, (22-29) 27 mmol/L 04/07/25 Calcium, (8.4-10.2) 9.4 mg/dL 04/07/25 AST, (5-31) 25 U/L 04/07/25 ALT, (0-31) 42 U/L H 04/07/25 Total Protein, (6.5-8.0) 6.6 g/dL 04/07/25 Albumin, (3.5-5.0) 4.1 g/dL 04/07/25 [facility] Medical History (Updated 04/28/25 @ 13:15 by Steve Barrientos MD) GERD (gastroesophageal reflux disease) Pseudotumor cerebri Anxiety Depression Morbid obesity Asthma Sleep apnea Hypertension IBS (irritable bowel syndrome) DVT (deep venous thrombosis) COVID-19 Diabetes Surgical History [place] teeth extracted Hx of carpal tunnel repair Hx of tonsillectomy Hx of knee surgery Family History Maternal Grandfather Substance abuse Heart attack Maternal Grandmother Stomach cancer Father Diabetes Asthma Mother Asthma Social History (Updated 03/09/25 @ 08:43 by Lisa Hill [facility]) Household Members: Family Housing: House Do you presently have visiting nurse or other home services: No Alcohol intake: current Alcohol intake frequency: holidays/special occasions only Patient Tobacco Use Status: Never used Tobacco e-Cigarette/Vaping Use: Never Used Advance Directives Date on File: 06/29/22 service: No Current occupational status: employed Cognitive needs: Yes Hearing needs: Yes Vision needs: Yes (wear glasses) Assessment & Plan Assessment & Plan (1) Diabetes mellitus type 2 with complications: Code(s): E11.8 - Type 2 diabetes mellitus with unspecified complications Category: Medical Plan: Wt: 100 Kg ( 12/15 ), 101 kg (03/14), 100kg (05/14) Est kcal needs as per MSJ: 1800 (40% carb, 30% protein/fat) Est fluid needs as per 25-30 ml/d: 3000 Est prot per day as per 1 g/kg bw: 100 Recommend fiber intake : 8-10 g per day and gradually increase to 25-28 g per day for women and 35-38 g for men or as tolerated Recommend sodium intake per day : less than 2300 mg Educated patient on: ( R = reviewed V = verbalizes understanding N/R = needs review N/A = not applicable * Food sources of carbohydrate, adequate serving sizes and its role in various health conditions: R * Differences between complex carbohydrates a simple carbohydrates, role of fiber in diet: R * Lean protein sources of foods: R * Differences between types of fats and role in diet (mono on saturated fat fatty acids, saturated fatty acids, trans fats): R * Food sources of sodium in salt and healthy modifications for heart health in kidney health: R * Vitamins and minerals: R V N/R * Healthy plate method concept: R * Physical activity: Benefits a precaution: R V N/R * Hypoglycemia protocol (rule of 15): R * Dietary prevention of Hyperglycemia: R * READ Food label prot/carbs/fiber : REviewed, Verbalizes Patient Instructions: Practice mindful eating, eating slow , hunger vs appetite Choose a physical activity to engage in (as simple as marching in place, dancing to music) particularly when stressed Consider swapping meal with protein shake (have the meal earlier and the protein shake at the time of your meal Continue working on reducing sugar intake - read food labels Coding Level of Care Code Nutr Indiv Subseq (64577) Diagnoses Diabetes mellitus type 2 with complications E11.8 Time Spent (min) 30
--- OUTSIDE RECORDS SUMMARY | 2025-04-20 09:13 | XMS_ITS | Data Portability ---
Author Organization [place] - [facility], Allergy Address [address] [address] Care Team Providers Care Segmental Wall Installer Name Role Phone PAZ CALDERON Primary Care [...] the HPI. Audiometric testing today is normal. Laurel-Hallpike is negative for any nystagmus. She does [...] Details Last Modified Time Details Appointments Establis [facility] 15 2024 10:30A M JOSELO MELTON MD Not available Not available Not available Lab None recorded . Referral None recorded . Procedures None recorded . Surgeries None recorded . Imaging [place], modified barium swallow study 2024 025 [facility] (Imaging), [address] [place] [address], [address], 12/25/2024 09:56:43 Medication Orders None recorded . [...] Address Organization Details Recorded Time Bilateral tinnitus 4133111930713 Active [address] [place], CCC-A [address], [place], [address], [facility] - [facility] [place] 10:38:56 Chiari malformatio n 831639573 Active [address] [place], [facility] 100 [facility], [place], [address], [facility] - [facility] [place] 5 10:39:04 Vertigo 330234617 Active [address] [place], [facility] [address], [place], [address], [facility] [place] 5 10:39:30 Oropharynge al dysphagia 59643251 Active 2024 JOSELO MELTON MD 100 [facility],[address], [place], [address], [facility] - [facility] [place] 11:10:35 Problem Notes None recorded. Procedures Surgical History Date Name Laterality Status Provider Name and Address Organization Details Recorded Time 12/18/19 25 Air & Speech Audio with Tymps - 17677, 98923 & [address] [place], CCC-A [address], [place], [address], [facility] - [facility] [place] 12/18/2024 10:39:42 12/18/19 25 OAE distortion product, comprehensive - [address] [place], [facility] 100 [facility],[place] [address], [place], [address], [place] - [facility] 12/18/2024 10:39:55 Imaging Results None recorded. Procedure Notes None recorded. Medical Equipment None Reported. Allergies Allergen ID Allergen Name Allergen Category Reaction Reaction Severity Criticality Documentation Date Start Date Code Code System Note Provider Name and Address Organization Details Recorded Time 061208 heparin medicatio n Not available Not available Not available 12/18/2024 5224 RxNorm Latonia haile [place] - [facility] 10:53:11 Medications Name Sig Start Date Stop [...] completed Not Available Not Available Not Available [facility] ODT 75 mg disintegrat ing [...] Not Available Not Available No t Available [employer] Zeynep 3 Sensor device USE DIRECTED FOR DIABETES. CHANGE EVERY 14 DAYS active Not Available Not Available No t Available Vitals Date Recorded Body height Body mass index (BMI) Body weight Provider Name and Address Organization Details Last Updated DateTime 12/18/2024 149.86 cm 44.4 kg/m2 41696.32 g Latonia John [place] - [facility] 12/18/2024 10:46:07 Social History None recorded. Functional [...] SNOMED-CT Code Diagnosis ICD10 Code Diagnosis Note [id number] JOSELO MELTON MD [facility] [address] [address] 12/18/2024 09:54:35 12/18/2024 11:14:35 Bilateral tinnitus 4324337761 102 H93.13 Audiologic al evaluation results: Right ear: Normal hearing with excellent word recognitio n. Left ear: Normal hearing with excellent word recognitio n. Tympanomet ry: Right Ear:Type A Left Ear:Type A Distortion Product Otoacousti c Emission Testing Results: [...] at the test frequency. Chiari malformation 2531 19310 Q07.00 Vertigo 763256963 R42 Oropharyng eal dysphagia 07789025 R13.12 Health Concerns Section Related Observation LastModified by Organization Detai ls LastModified Time None Recorded Concern Status LastModified by Organization Details LastModified Time None Recorded Advance Directives Directive None Recorded Payers Insurance Date Sequence Insurance Name Policy Number Policy Cowan Covered Member ID Cowan Member ID Guarantor Name 12/18/2024 1 [facility] (IN NETWORK) [id number] Susan Escobedo [id number] Susan Falluca 02/17/2025 1 [facility] NET PLAN (MEDICAID HMO) FRANKI Escobedo [id number] Susan Falluca Notes Date Note Type Note Provider Name [...] to sound sensitivity JOSELO MELTON MD [address] [place] [address], [address], [place] - [facility] 12/27/2024 13:17:13 OBGyn Episode No OBEpisode recorded.
--- OUTSIDE RECORDS SUMMARY | 2025-04-20 09:13 | XMS_ITS | Clinical Summary ---
Author Organization [employer] [facility] ity Address [address] [place] [address] Care Team Providers Care Hybrid Derivatives Trader Name Role Phone Nicola Spears MD Primary Care Provider [phone] Surgical History Surgery Date Site/Laterality Comments CARPAL TUNNEL RELEASE PROCEDURE: IA NEUROPLASTY &/TRANSPOS MEDIAN NRV CARPAL TUNNE; COMMENT: bilateral TONSILLECTOMY PROCEDURE: HISTORICAL TONSILLECTOMY COLONOSCOPY 05/01/2018 PROCEDURE: OUTSIDE COLONOSCOPY; COMMENT: diminutive tubular adenoma polyp. random colonic bx normal. KNEE ARTHROSCOPY W/ MENISCAL REPAIR 12/11/2019 PROCEDURE: IA ARTHROSCOPY KNEE W/MENISCUS RPR MEDIAL/LATERAL; COMMENT: root repair; [facility] Medical History Medical History Date Comments [...] obesity wit h BMI of 45.0-49.9, adult ([facility]) Tubular adenoma of colon 05/15/2018 DX:Tubu lar adenoma of colon Irritable bowel syndrome wit h diarrhea 08/05/2018 DX:Irritable bowel syndrome with diarrhea Moderate persistent asthma w ith acute exacerbation 01/05/2019 DX:Moderate persistent asthm a with acute exacerbation DM (diabetes mellitus), type 2 with renal complications ([facility]/HCC V24, [facility]/HCC V28) 04/29/2018 DX:DM (diabetes mellitus), t ype 2 with renal complications ([facility]) Family History Medical History [...] age to complete this topic Care Teams Hybrid Derivatives Trader Relationship Specialty Start Date End Date Nicola Spears MD [address] [place] [address] PCP - General Internal Medicine 10/27/21
== END 2025-04-20 09:46 | disposition home or self-care (01) ==
LOC: HO.ENCR 08:53
PROVIDERS: PCP Nurse Practitioner Family; Visit Provider Dietitian, Registered
DX: E11.8 Type 2 diabetes mellitus with unspecified complications (principal)

== ENCOUNTER → 2025-04-20 08:52 | Outpatient (BNVA) | payer OTHER, SELFPAY | PROVIDERS: PCP Nurse Practitioner Family; Visit Provider Dietitian, Registered | DX: E11.8 Type 2 diabetes mellitus with unspecified complications (principal) | CPT/HCPCS: 97803 ==

== ENCOUNTER 2025-04-30 08:21 | Outpatient (AMB) | payer OTHER, SELFPAY ==
--- OUTSIDE RECORDS SUMMARY | 2025-04-30 08:27 | XMS_ITS | Clinical Summary ---
Author Organization [employer] [facility] ity Address [address] [place] [address] Care Team Providers Care Furniture Upholsterer Name Role Phone Nicola Spears MD Primary Care Provider [phone] Surgical History Surgery Date Site/Laterality Comments CARPAL TUNNEL RELEASE PROCEDURE: PA NEUROPLASTY &/TRANSPOS MEDIAN NRV CARPAL TUNNE; COMMENT: bilateral TONSILLECTOMY PROCEDURE: HISTORICAL TONSILLECTOMY COLONOSCOPY 05/01/2018 PROCEDURE: OUTSIDE COLONOSCOPY; COMMENT: diminutive tubular adenoma polyp. random colonic bx normal. KNEE ARTHROSCOPY W/ MENISCAL REPAIR 12/11/2019 PROCEDURE: PA ARTHROSCOPY KNEE W/MENISCUS RPR MEDIAL/LATERAL; COMMENT: root repair; [facility] Medical History Medical History Date [...] obesity wit h BMI of 45.0-49.9, adult ([facility]) Tubular adenoma of colon 05/15/2018 DX:Tubu lar adenoma of colon Irritable bowel syndrome wit h diarrhea 08/05/2018 DX:Irritable bowel syndrome with diarrhea Moderate persistent asthma w ith acute exacerbation 01/05/2019 DX:Moderate persistent asthm a with acute exacerbation DM (diabetes mellitus), type 2 with renal complications ([facility]/HCC V24, [facility]/HCC V28) 04/29/2018 DX:DM (diabetes mellitus), t ype 2 with renal complications ([facility]) Family History Medical History Relation Name Comments [...] 5 Years) and At-Risk Patients (6 to 49 Years) (1 of 2 - PCV) 1999 Cervical Cancer Screening: P ap Smear 2001 Cholesterol Screening (Lipid Panel) 06/15/2024 Colorectal Cancer Screening: Colonoscopy 06/15/2024 Depression Screening 06/15/2024 Diabetes: Annual Urine Albumin-Creatinine Ratio (uACR) 06/15/2024 Diabetes: Blood Sugar Contro l Test (HGBA1C) 06/15/2024 HIV Screening 06/15/2024 Hepatitis C Screening 06/15/2024 Social Influencers of Health Screening 06/15/2024 COVID-19 Vaccine (1 - 2023-2 5 season) 2024 Influenza Vaccine (#1) 2025 DTaP,Tdap,and Td Vaccines (2 - Td [...] age to complete this topic Care Teams Furniture Upholsterer Relationship Specialty Start Date End Date Nicola Spears MD [address] [place] [address] PCP - General Internal Medicine 10/27/21
--- OUTSIDE RECORDS SUMMARY | 2025-04-30 08:27 | XMS_ITS | Data Portability ---
Author Organization [facility] [employer], [employer] Address [address] [place] [address] [place] [address] Care Team Providers Care Cylinder Block Mechanic Name Role Phone JAZMYNE LINDO Referring Provider JAZMYNE LINDO Primary Care Provider [phone] Assessment Encounter Date Assessment Date Assessment LastModified [...] likely that the CSF assays sent by [facility] after September 10, 2023 lumbar puncture [...] Jardiance, Lantus, ondansetron, rizatriptan PLAN Susan Fanny (maCHUka), January 27, 2024 We will find: Ophthalmology note, CSF results sent after [facility] Follow up after mrossen Not [...] likely that the CSF assays sent by [facility] after September 10, 2023 lumbar puncture [...] cervical spine without contrast February 13, 2024 [facility] radiology: Suboptimal evaluation secondary to motion. Within this constraint: The cervical spinal cord is normal in signal intensity. There is no high-grade central spinal canal stenosis. Up to moderate bilateral neuroforaminal stenosis at C4-5. MRV brain with and without IV contrast, [facility], compared to brain MRI December 17, 2018 and MR a head October 01, 2023 [facility]: No cerebral venous thrombosis, unremarkable study more generally. MRA head without contrast [facility] October 02, 2023: Normal. CSFNov2022 clear, colorless, WBC = 0, RBC = 12/8 [2 #4 presumably], glucose 106, total protein 25.1 serum: September 10 2023 glucose 210 test negative Lumbar puncture note [facility], September 10, 2023, for chief complaint [...] Jardiance, Lantus, ondansetron, rizatriptan PLAN Susan Escobedo (Davin), March 24, 2024 She wants to think about whether she wants to continue working with me. She will call, and a week she thinks, if she does, and we agree that at that point I would look at [facility] interventional radiology and have her [...] By Organization Details Last Modified Time 01/27/2024 [id number] Discussion acros s issues of diagnoses and management and same day associated chart review and management greater than 50% greater than 60 minutes terrance Not available 01/27/2024 14:30:31 03/24/2024 [id number] PREVIOUS DISCUSSION >>>>>>>>January 27, 2024 initial neurology [...] 2023 12:57:44 03/24/20 24 02/13/2024 MRI, cervi tmoeka spine , w/o contr ast No observ ation record ed. [email or web address] [facility] [address] [place], [address], 03/25/2024 16:03:10 Result Notes None recorded. Procedures Surgical History Date Name Laterality Status Provider Name and Address Organization Details Recorded Time 03/24/2024 DATA REVIEW completed Ilya Mckeon MD [address] [place], [place] [address], [address], [facility] 03/24/2024 10:16:01 01/27/2024 DATA REVIEW completed Ilya Mckeon MD [address] [place] [address], [address], [facility] 01/27/2024 14:11:59 Imaging Results None recorded. Procedure Notes None recorded. Medical Equipment None Reported. Allergies Allergen ID Allergen Name Allergen Category Reaction Reaction Severity Criticality Documentation Date Start Date Code Code System Note Provider Name and Address Organization Details Recorded Time 3895 heparin medicatio n Not available Not available Not available 01/27/2024 5224 RxNorm Eli Vegas [facility] 13:24:25 Medications Name Sig Start [...] Ultra-Fine Mini Pen Needle 31 gauge x 01/03 USE TO ADMINISTER INSULIN TWICE DAILY active [...] Updated DateTime 01/27/2024 149.86 cm 46 kg/m2 759617.06 g 12 /min Eli Vegas [facility] 01/27/2024 13:24:17 Social History Question Answer Notes LastModified by Organizat ion Details LastModified Time Tobacco Smoking Status Never Smoker Eli haile [facility] 01/27/2024 13:26:01 What Is Your Level Of Caffeine Consumption? Moderate 1 Cup Daily Information not available 01/27/2024 What Is The Highest Grade Or Level Of School You Have Completed Or The Highest Degree You Have Received? [id number] Information not available 01/27/2024 Which Of Your [...] Vitamin D Deficiency N Liver Disease N Headaches Y Fibromyalgia N Kidney Disease N Claustrophobia N Hospitalizations N High Blood Pressure or Hypertension N Thyroid Problems N Brain Tumors N Encephalitis N PTSD N Vitamin B12 deficiency N Heart Attack ([place]) N Diabetes Y Bleeding Disorder N Tuberculosis N Cerebral Palsy N Neck Problems N Back Problems N Asthma Y Epilepsy/Seizures N Bipolar Disorder N Sleep Disorder N Hepatitis N Aneurysm N Heart Disease N High Cholesterol or Hyperlipidemia N Osteoporosis N Gynecological HistoryNo gynecological history recorded. Obstetrics History GPAL:G 0 P 0 0 0 0 Past Encounters Encounter ID Performer Location Encounter Start Date Encounter Closed Date Diagnosis/Indication Diagnosis SNOMED-CT Code Diagnosis ICD10 Code Diagnosis Note [id number] Ilya Mckeon MD [facility] [address] [place] [address] [place] [address] 01/27/2024 12:43:24 01/27/2024 15:32:53 Benign intracranial hypertension 11355101 G93.2 Migraine without aura 56 748547 G43.009 [id number] Ilya Mckeon MD [facility] [address] [place] [address] [place] [address] 03/24/2024 09:45:33 03/24/2024 10:51:41 Benign intracranial hypertension 67237124 G93.2 Migraine without aura 56 469586 G43.009 Health Concerns Section Related Observation LastModified by Organization Liamgwen ls LastModified Time None Recorded Concern Status LastModified by Organization Details LastModified Time None Recorded Advance Directives Directive None Recorded Payers Insurance Date Sequence Insurance Name Policy Number Policy Cowan Covered Member ID Cowan Member ID Guarantor Name 04/01/[address] [facility] (IN NETWORK) [id number] Susan Escobedo [id number] Susan Escobedo Notes Date Note Type Note Provider Name and Address Organization Details Recorded Time 01/27/2024 text/html She presents for initial neurology consultation for assessment and management of June 26-2022, onset of persistent, dizziness, arm tingling, partially improved slurring, visual blurring, and on June 29 headache, which also persists, all preceded by 2000 23-day at [facility]She is accompanied by her sister, Gracie.Before June [...] note) after which neurology (JASWANT Rock) at [facility] 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
--- NOTE | 2025-04-30 08:32 | A.OFFPC_ITS ---
Vital Signs 04/30/25 08:35 Height 4 ft 11 in Weight 225 lb 8 oz BMI 45.5 BP 118/70 Blood Pressure Location Rt brachial Position Sitting Respiration 12 Pulse 84 Pulse Source Pulse Oximeter Temp 97.2 F Temp Source Oral Pulse Oximetry (%) 99 Oxygen Delivery Method Room Air Intake Visit Reasons: 6 weeks 30 min fu Blakero hold Intake Note: 6 week follow up Service And Repair Supervisor Required: No Allergies Heparin Analogues (HEPARIN AGENTS) Allergy (Intermediate, Verified 04/30/25 08:42) HIVES, RASH, SEVERE BRUISING dulaglutide (From Trulicity) Allergy (Verified 04/30/25 08:42) Rash Medication List - Last Reconciled 04/30/25 by Madison Travis, FABRICATOR [employer]SEM[employer]- acetazolamide ER 500 mg PO DAILY albuterol sulfate 2.5 mg (3 mL) inhalation Q4-6H PRN albuterol sulfate 90 mcg/actuation (Ventolin HFA) 2 puffs inhalation QID PRN alprazolam 0.25 - 0.5 mg orally 1 tab 30 minutes prior to MRI, may repeat dose x 's 1 (max 4 tabs in 1 day); 1 day MDD 1 mg blood sugar diagnostic (FreeStyle Lite Strips) daily blood-glucose sensor (FreeStyle Zeynep 3 Sensor device) As directed canagliflozin (Invokana) 300 mg PO DAILY celecoxib (Celebrex) 100 mg PO Q12H 30 days cholecalciferol (vitamin D3) 1,250 mcg PO QWEEK clonidine HCl 0.3 mg PO BID dupilumab (Dupixent) 300 mg (2 mL) subcut Q2W famotidine (Pepcid) 20 mg PO BEDTIME 30 days fluticasone furoate-vilanterol 200-25 mcg/dose (Breo Ellipta) 1 inh inhalation DAILY galcanezumab-gnlm (Emgality) 300 mg (3 mL) subcut Q30D 30 days glyburide 5 mg PO BID insulin glargine (Lantus Solostar U-100 Insulin) 20 units (0.2 mL) subcut BID lidocaine HCl 2% (Lidocaine Viscous) 1 mL mucous membrane QID PRN 30 days magnesium L-threonate mg PO metoclopramide HCl 5 - 10 mg (1 - 2 x 5 mg) PO Q4-6H 30 days MDD 4 tabs onabotulinumtoxinA (Botox) 200 units IM ONCE 12 weeks ondansetron 4 - 8 mg (1 - 2 x 4 mg) PO Q6-8H PRN 30 days oral dosing syringes 1 mL syringes without needle. To be used as directed with viscous lidocaine intranasal order. Oxygen Home Use Start home O2 at 15-25 L/min via non-rebreather facemask x's 15- 20 minutes at onset of cluster headache attack. Patient will require both M tanks and E tanks. pen needle, diabetic (Ultra-Thin II Insulin Pen [place]) As directed riboflavin (vitamin B2) 400 mg PO DAILY 30 days rimegepant (Nurtec ODT) 75 mg PO Q OTHER DAY sertraline 50 mg PO DAILY thiamine HCl (vitamin B1) 50 mg (1/2 x 100 mg) PO DAILY tirzepatide (Mounjaro) 12.5 mg (0.5 mL) subcut QWEEK Held on 02/17/25. Instructions: Doctor's Order Tobacco use date assessed: 04/30/25 Dental Screening Dental Screen Date: 04/30/25 Did you have a dental visit in the last 12 months?: Yes Did you have a dental problem in the last 6 months where you did not have access to dental care?: No Was dental information given to patient?: Patient has dentist HPI HPI Comments History of Present Illness Details 44 year old female with mild intermitten t asthma, DM 2, history of COVID-19, DVT, Idiopathic intracranial with chiari malformation HTN, migraine headaches, IBS, Sleep apnea, Vit D def Status post carpal tunnel repair, tonsillectomy, R knee surgery 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 Colon ? 09/2024 Mammo WNL ? PAP due for pap, has IUD placed 3 years ago. ? Tdap 2018, declined flu 08/21/24 [facility] exam nega tive for DM retinopathy bilat; Glaucoma suspect. Exam 10/2024 reports WNL this was done to eval blurred vision. Specialists: Obgyn first appt December 2024 [facility] [place] [facility] [place] [facility] Pulm Ophthalmology: 07/07/24 [facility], DM Eye negative for retinopathy, visit q3mo [facility] [place] [facility] [place] History of Present Illness - The patient is a 44-year-old female pr esenting to fu on chronic nausea and restless legs syndrome. - Chronic nausea with minimal improvemen t noted post cessation of Mounjaro, reduced by 20%. - Reports increased burping resolved aft er medication change. - DM control remains subpar on glyburide 5mg BID, Lantus 20 units BID and Invokana 300 mg - see CGM info below. - Restless legs syndrome post-initiation of weight loss shakes, causing bilateral lower extremity pain and tingling. This is better since onset. 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 Exercising in the pool. - Identified elevated ferritin levels du ring work up. - Sx are better. Has consult w/ heme nex t week. Review of Systems - Gastrointestinal: Reports nausea with minimal improvement, increased burping; Denies abdominal pain beyond associated IBS. - Neurological: Reports tingling and jessica n in bilateral lower extremities. - Endocrine: Reports current glucose flu ctuations; Denies severe hypoglycemic episodes. - Musculoskeletal: Denies issues except those stemming from RLS. - General: Reports improved management o f weight; Denies unintentional weight loss Physical Exam General: Well developed, well nourished, in no acute distress. Appears stated age. Head: Normocephalic, atraumatic. Eyes: Pupils are equal, round and reactive to light and accommodation. Conjunctivae are clear. Lungs: Clear to auscultation bilaterally. No rales, rhonchi or wheeze noted. Good air flow in all garcia. Heart: Regular rate and rhythm. No murmurs, click, rubs or gallops are noted. Musculoskeletal: Joints are nontender, without swelling, redness, or effusions. Pulses: Peripheral pulses are equal and palpable bilaterally. Extremities: No clubbing, cyanosis nor edema is noted. Psych: Mood and affect appropriate. Discussion Notes During this visit, I discussed with the patient the ongoing issue of chronic nausea and possible connection with her medication regimen, particularly Mounjaro. We acknowledged the 20% improvement in nausea upon discontinuation of Mounjaro and noted the reduction of burping symptoms. Given her diabetes management, I recommended adjusting her glyburide dosage for better glucose control and explained the rationale for redistribution of medication timing to aid in managing blood sugar spikes, particularly in the evening. The restless legs syndrome, was reviewed in conjunction with her elevated ferritin results, and future consultation with hematology was advised. The emphasis was placed on dietary management, particularly fiber intake, to assist with glucose stabilization & to satisfy feeling hungry in the evening. I instructed her to trial increased fluid intake before meals and utilizing fiber supplements to manage hunger. We outlined steps for ongoing follow-up, monitoring of blood sugar levels, and adjustments in medication scheduling, with an anticipated hematology appointment to further evaluate the elevated ferritin levels. Assessment and Plan 1. Chronic Nausea with Vomiting - Improved w/ cessation of mounjaro - co nt OFF 2. Restless Legs Syndrome - improved, await ferritin evaluation b y heme, appt next week . 3. Type 2 Diabetes Mellitus - Glyburide increase 10 mg BID (take 2nd dose in afternoon) if no improvement use the lantus 20 units in the afternoon instead of AM and HS cont invokana 4. Elevated Ferritin Levels - Consult hematology for further assessm ent. Patient Instructions - Increase glyburide dose as instructed, taking two pills in the morning and two in the afternoon. - Monitor blood sugar levels, especially after eating. - Try fiber-rich foods or supplements li ke jayce seeds or Benefiber. - Continue with swimming or exercise as tolerated without overexerting. - Attend the hematology appointment as s cheduled. - Follow the nutritional plan discussed with the cut out and marking machine operator. - Drink water before meals and reassess hunger after 15 minutes. - RTO in 3 months for routine fu, sooner PRN Consent Patient was informed and verbally consented to the use of an ambient scribe for clinic note documentation during this visit. Total time spent caring for the patient today was 45 minutes. This includes time spent before the visit reviewing the chart, time spent during the visit, and time spent after the visit on documentation, reviewing laboratory results, diagnostic imaging, medications, performing a medically necessary evaluation, counseling on diagnoses, care coordination, ordering appropriate tests, ordering appropriate medications, review of tests performed by other providers, reporting test results with the patient, communication with other healthcare providers. [facility] Medical History (Updated 04/30/25 @ 15:46 by Madison Travis, FABRICATOR ASSEMBLER [facility] [facility]) Anxiety Asthma COVID-19 Depression Diabetes DVT (deep venous thrombosis) GERD (gastroesophageal reflux disease) Hypertension IBS (irritable bowel syndrome) Morbid obesity Pseudotumor cerebri Sleep apnea Surgical History Hx of carpal tunnel repair Hx of knee surgery Hx of tonsillectomy [place] teeth extracted Family History Maternal Grandfather Substance abuse Heart attack Maternal Grandmother Stomach cancer Father Diabetes Asthma Mother Asthma Social History (Updated 03/09/25 @ 08:43 by Lisa Hill [facility]) Household Members: Family Housing: House Do you presently have visiting nurse or other home services: No 75 years or older and lives alone: No Alcohol intake: current Alcohol intake frequency: holidays/special occasions only Patient Tobacco Use Status: Never used Tobacco e-Cigarette/Vaping Use: Never Used Advance Directives Date on File: 06/29/22 service: No Current occupational status: employed Cognitive needs: Yes Hearing needs: Yes Vision needs: Yes (wear glasses) Questionnaire Thrive Questionnaire Date Thrive assessed: 11/17/24 I am a: Patient What is your living situation today?: I have a steady place to live Within the past 12 months, did the food you bought not last and you didn't have the money to get more?: I choose not to answer this question Within the past 12 months, did you worry whether your food would run out before you got money to buy more?: I choose not to answer this question Do you have trouble paying for medicines?: No Do you have trouble getting transportation to medical appointments?: No Do you have trouble paying your heating and electricity bill?: I choose not to answer this question Do you have trouble taking care of your child, family member or friend?: I choose not to answer this question Do you have trouble with day-to-day activities such as bathing, preparing meals, shopping, managing finances, etc.?: I choose not to answer this question Are you currently unemployed and looking for a job?: I choose not to answer this question Are you interested in more education?: I choose not to answer this question Please select the resources that you would like help with: None Currently or been in a relationship where the following occur: I choose not to answer THRIVE Score: 0 SILVERIO-7 AMB Questionnaire SILVERIO-7 Date SILVERIO - 7 assessed: 02/17/25 Source: Developed by Drs. Aj L. RositaRoxanna blum, Mino Moore and colleagues, with an educational fabricio from [employer] ([employer]: [place]). Physical exam (Primary Care) Vital Signs: Last Vital Signs Temp 97.2 F 04/30/25 08:35 Pulse 84 04/30/25 08:35 Resp 12 04/30/25 08:35 BP 118/70 04/30/25 08:35 Pulse Ox 99 04/30/25 08:35 Oxygen Delivery Method Room Air 04/30/25 08:35 BMI result Body Mass Index 45.5 Tobacco/Smoking Status: Tobacco use Status Tobacco use date assessed 04/30/25 04/30/25 08:37 Patient Tobacco Use Status Never used Tobacco 04/30/25 08:33 e-Cigarette/Vaping Use Never Used 04/30/25 08:33 Thrive Assessment: Date of Thrive Assessment Date Thrive assessed 11/17/24 04/30/25 08:33 Currently or been in a relationship where the following occur: I choose not to answer Office Procedures Glucose Monitoring Details Details: 30 DAY GMI % 8.8% TIME IN RANGE > 250 33% 181- 250 43% 70-180 24% TRENDS SHOW SPIKES AFTER 6PM 23290 - Continuous Glucose Monitoring, patient provides equipment 70927 - Glucose monitoring, continuous-physician I&R Procedure code (CPT) selection complete Coding Level of Care Code Est Pt Level 5 (81826) Complex EM visit Add On G2211 Diagnoses Diabetes mellitus type 2 with complications E11.8 Morbid obesity with BMI of 45.0-49.9, adult E66.01; Z68.42 Nausea R11.0 RLS (restless legs syndrome) G25.81 Type 2 diabetes mellitus with hyperglycemia, with long-term current use of insulin E11.65; Z79.4 Diabetes mellitus complication status: with hyperglycemia Elevated ferritin R79.89 CPT Codes Details - CPT: 82672 - Continuous Glucose Monitoring, patient provides equipment ([id number]) Details - CPT: 92064 - Glucose monitoring, continuous-physician I&R ([id number]) Assessment & Plan Assessment & Plan (1) Diabetes mellitus type 2 with complications: Code(s): E11.8 - Type 2 diabetes mellitus with unspecified complications Category: Medical (2) Morbid obesity with BMI of 45.0-49.9, adult: Comment: with HLD and DM and HTN Code(s): E66.01 - Morbid (severe) obesity due to excess calories; Z68.42 - Body mass index [BMI] 45.0-49.9, adult Category: Medical (3) Nausea: Code(s): R11.0 - Nausea Category: Medical (4) RLS (restless legs syndrome): Code(s): G25.81 - Restless legs syndrome Category: Medical (5) Insulin use (long-term) in type 2 diabetes: Code(s): E11.9 - Type 2 diabetes mellitus without complications; Z79.4 - [facility] (current) use of insulin Category: Medical Qualifiers: Diabetes mellitus complication status: with hyperglycemia Qualified Code(s): E11.65 - Type 2 diabetes mellitus with hyperglycemia; Z79.4 - [facility] (current) use of insulin (6) Elevated ferritin: Code(s): R79.89 - Other specified abnormal findings of blood chemistry Category: Medical Plan . Medications: Changed From glyburide 5 mg PO BID 180 tabs 2RF To glyburide 10 mg (2 x 5 mg) PO BID 360 tabs 2RF Discontinued tirzepatide (Mounjaro) Discontinued Reason: Doctor's Order 12.5 mg (0.5 mL) subcut QWEEK 2 mL 5RF
[2025-04-30 08:35] VITALS: BP 118/70; PULSE 84; RESP 12; TEMP 36.2; O2SAT 99; BMI 45.5
== END 2025-04-30 09:06 | disposition home or self-care (01) ==
LOC: HO.HMCFM 08:22
PROVIDERS: PCP Nurse Practitioner Family; Visit Provider Nurse Practitioner Family
DX: E11.8 Type 2 diabetes mellitus with unspecified complications (principal); E66.01 Morbid (severe) obesity due to excess calories; Z68.42 Body mass index [BMI] 45.0-49.9, adult; E11.65 Type 2 diabetes mellitus with hyperglycemia; Z79.4 Long term (current) use of insulin; R11.0 Nausea; G25.81 Restless legs syndrome; R79.89 Other specified abnormal findings of blood chemistry

== ENCOUNTER → 2025-04-30 08:21 | Outpatient (BNVA) | payer OTHER, SELFPAY | PROVIDERS: PCP Nurse Practitioner Family; Visit Provider Nurse Practitioner Family | DX: E11.8 Type 2 diabetes mellitus with unspecified complications (principal); E66.01 Morbid (severe) obesity due to excess calories; Z68.42 Body mass index [BMI] 45.0-49.9, adult; R11.0 Nausea; G25.81 Restless legs syndrome; E11.65 Type 2 diabetes mellitus with hyperglycemia; R79.89 Other specified abnormal findings of blood chemistry; E78.5 Hyperlipidemia, unspecified; I10 Essential (primary) hypertension; J45.20 Mild intermittent asthma, uncomplicated; Z79.4 Long term (current) use of insulin | CPT/HCPCS: 95249; 99212 ==

== ENCOUNTER 2025-05-04 10:56 | Outpatient (REF) | payer OTHER, SELFPAY ==
--- NOTE | ~2025-05-04 | XR_ITS ---
EXAMINATION: XR KNEE, RIGHT CLINICAL INFORMATION: M25.561 - Pain in right knee COMPARISON: None available. TECHNIQUE: AP lateral and sunrise views, of the right knee. FINDINGS: Joint space narrowing involving medial lateral compartment and to a lesser extent patellofemoral joint. Sclerosis along the articular surface of the tibial plateau and femoral condyles mostly the medial compartment with small marginal osteophyte formation. No suprapatellar bursa joint effusion. No acute cortical disruption or malalignment. No lytic or blastic lesions.. XR/XR knee RT 3V IMPRESSION: Tricompartmental osteoarthrosis involving mostly the medial compartment. Electronically signed by: Clarke Ingram MD 05/04/2025 01:18 PM EDT
--- OUTSIDE RECORDS SUMMARY | 2025-05-05 11:49 | XMS_ITS | Data Portability ---
Author Organization [place] - [facility], Allergy Address [address] [place] [address] Care Team Providers Care Mail Sorting Supervisor Name Role Phone PAZ CALDERON Primary Care [...] the HPI. Audiometric testing today is normal. [place] is negative for any nystagmus. She does [...] Details Last Modified Time Details Appointments None recorded. Lab None recorded. Referral None recorded. Procedures None recorded. Surgeries None recorded. Imaging [place], modified barium swallow study 2024 025 [facility] (Imaging), [address] [place] [address], [address], 09:56:43 Medication Orders None recorded. Patient TargetsNo targets recorded. Patient InstructionsNo instructions [...] Address Organization Details Recorded Time Bilateral tinnitus 5311278625386 Active [address] [place], [facility] [address] [facility] [place],[address] [facility], [place], [address], [facility] - [facility] 10:38:56 Chiari malformatio n 448692383 Active [address] [place], [facility] [address] [facility] [place], [place], [address], [facility] - [facility] 10:39:04 Vertigo 954731394 Active [address] [place], [facility] [address] [facility] [place],[address] [facility], [place], [address], [facility] - [facility] 10:39:30 Oropharynge al dysphagia 82461376 Active 2024 JOSELO MELTON MD [address] [facility] [place],[address] [facility], [place], [address], [facility] - [facility] 11:10:35 Problem Notes None recorded. Procedures Surgical History Date Name Laterality Status Provider Name and Address Organization Details Recorded Time 05/03/20 25 Fiberoptic Laryngoscopy (Comprehensive) active JOSELO MELTON MD [address] [facility] [place] [address], [place], [address], [facility] - [facility] 05/03/2025 10:33:04 12/18/19 25 Air & Speech Audio with Tymps - 32565, [address] & [address] [place], CCC-A [address] [facility] [place] [address], [place], [address], [place] - [facility] 12/18/2024 10:39:42 12/18/19 25 OAE distortion product, comprehensive - [address] [place], [facility] [address] [place] [address], [phone], [facility] - [facility] 12/18/2024 10:39:55 Imaging Results None recorded. Procedure Notes None recorded. Medical Equipment None Reported. Allergies Allergen ID Allergen Name Allergen Category Reaction Reaction Severity Criticality Documentation Date Start Date Code Code System Note Provider Name and Address Organization Details Recorded Time 379392 heparin medicatio n Not available Not available Not available 12/18/2024 5224 RxNorm Latonia haile [place] - [facility] 10:53:11 Medications Name Sig Start Date Stop Date Status Note LastModified by Organization Details LastModified Time albuterol sulfate 2.5 mg/3 mL (0.083 %) solution for nebulizatio n active Not Available Not Available Not Available glyburide 5 mg tablet Take 1 tablet every day by oral route. active Not Available Not Available No t Available acetazolami de ER 500 mg capsule,ext ended release 05/03 completed Not Available Not Available Not Available prednisone 20 mg tablet ON DAYS 1-3 TAKE 2 TABLETS WITH BREAKFAST . DAYS 4-6 TAKE 1 TABLET WITH BREAKFAST . DAYS 7-10 TAKE 0.5 TABLET WITH BREAKFAST . 12/18 completed Not Available Not Available Not Available Celebrex 100 mg capsule Take 1 capsule every day by oral route. active Not Available Not Available No t Available famotidine 20 mg tablet Take 1 tablet twice a day by oral route. active Not Available Not Available No t Available amitriptyli ne 25 mg tablet TAKE 1 TABLET BY MOUTH DAILY AT BEDTIME 12/18 completed Not Available Not Available Not Available magnesium oxide 400 mg (241.3 mg magnesium) tablet TAKE 1 TABLET BY MOUTH EVERY NIGHT AT BEDTIME. MAY HOLD FOR LOOSE STOOLS 12/18 completed Not Available Not Available Not Available metoclopram antoine 5 mg tablet 05/03 completed Not Available Not Available Not Available baclofen 10 mg tablet active Not Available Not Available No t Available indomethaci n 25 mg capsule TAKE 1 CAPSULE BY MOUTH THREE TIMES DAILY WITH FOOD OR MILK active Not Available Not Available No t Available clonidine 0.3 mg/24 hr weekly transdermal patch Apply 1 patch every week by transderm al route. active Not Available Not Available No t Available furosemide 20 mg tablet TAKE 1 TABLET BY MOUTH DAILY 12/18 completed Not Available Not Available Not Available propranolol 20 mg tablet 05/03 completed Not Available Not Available Not Available Vitamin B-1 100 mg tablet TAKE 1 TABLET BY MOUTH ONCE DAILY active Not Available Not Available No t Available ondansetron 4 mg disintegrat ing tablet 05/03 completed Not Available Not Available Not Available sertraline 50 mg tablet Take 1 tablet every day by oral route. active Not Available Not Available No t Available Ventolin HFA 90 mcg/actuati on aerosol inhaler INHALE 2 PUFFS BY MOUTH EVERY 4 HOURS NEEDED active Not Available Not Available No t Available Botox 100 unit injection Take by injection route. active Not Available Not Available No t Available duloxetine 30 mg capsule,del ayed release 12/18 completed Not Available Not Available Not Available duloxetine 60 mg capsule,del ayed release 05/03 completed Not Available Not Available Not Available cholecalcif satish (vitamin D3) 1,250 mcg (50,000 unit) capsule TAKE 1 CAPSULE BY MOUTH ONCE A WEEK 12/18 completed Not Available Not Available Not Available Lantus Solostar U-100 Insulin 100 unit/mL (3 mL) subcutaneou s pen 12/18 completed Not Available Not Available Not Available Lantus Solostar U-100 Insulin active Not Available Not Available Not Available Easy [...] Available Not Available Not Available Breo Ellipta 100 mcg-25 mcg/dose powder for inhalation Inhale 1 puff every day by inhalatio n route. active Not Available Not Available No t Available Breo Ellipta 200 mcg-25 mcg/dose powder for inhalation 12/18 completed Not Available Not Available Not Available riboflavin (vitamin B2) 400 mg tablet TAKE 1 TABLET BY MOUTH DAILY 12/18 completed Not Available Not Available Not Available Nurtec ODT 75 mg disintegrat ing tablet Take by oral route. active Not Available Not Available No t Available Burn Relief with Lidocaine 1 % topical gel active Not Available Not Available Not Available Dupixent [...] Updated DateTime 12/18/2024 149.86 cm 44.4 kg/m2 36831.32 g Latonia John MA [facility] 12/18/2024 10:46:07 Date Recorded Body height Body mass index (BMI) Body weight Provider Name and Address Organization Details Last Updated DateTime 05/03/2025 149.86 cm 44.4 kg/m2 88471.32 g Latonia John MA [facility] 05/03/2025 10:24:49 Social History None recorded. Functional Status None [...] SNOMED-CT Code Diagnosis ICD10 Code Diagnosis Note [id number] JOSELO MELTON MD [facility] [address] [place] [address] 12/18/2024 09:54:35 12/18/2024 11:14:35 Bilateral tinnitus 1530722921 102 H93.13 Audiologic al evaluation results: Right [...] at the test frequency. Chiari malformation 2531 56794 Q07.00 Vertigo 924661855 R42 Oropharyng eal dysphagia 27509181 R13.12 [id number] JOSELO MELTON MD [facility] [address] [address] 05/03/2025 10:14:46 05/03/2025 10:44:03 Health Concerns Section Related Observation LastModified by Organization Detai ls LastModified Time None Recorded Concern Status LastModified by Organization Details LastModified Time None Recorded Advance Directives Directive None Recorded Payers Insurance Date Sequence Insurance Name Policy Number Policy Cowan Covered Member ID Cowan Member ID Guarantor Name 12/18/2024 1 [facility] [id number] Susan Escobedo [id number] Susan Escobedo 05/03/[address] [facility] (MEDICAID HMO) [place] Susan Escobedo [id number] Susan Escobedo Notes Date Note Type Note [...] to sound sensitivity JOSELO MELTON MD [address] [place] [address], [phone], [facility] - [facility] 12/27/2024 13:17:13 OBGyn Episode No OBEpisode recorded.
--- OUTSIDE RECORDS SUMMARY | 2025-05-05 11:49 | XMS_ITS | Clinical Summary ---
Author Organization [employer] [facility] ity Address [address] [place] [address] Care Team Providers Care Car Unloader Helper Name Role Phone Nicola Spears MD Primary Care Provider [phone] Surgical History Surgery Date Site/Laterality Comments CARPAL TUNNEL RELEASE PROCEDURE: VT NEUROPLASTY &/TRANSPOS MEDIAN NRV CARPAL TUNNE; COMMENT: bilateral TONSILLECTOMY PROCEDURE: HISTORICAL TONSILLECTOMY COLONOSCOPY 05/01/2018 PROCEDURE: OUTSIDE COLONOSCOPY; COMMENT: diminutive tubular adenoma polyp. random colonic bx normal. KNEE ARTHROSCOPY W/ MENISCAL REPAIR 12/11/2019 PROCEDURE: VT ARTHROSCOPY KNEE W/MENISCUS RPR MEDIAL/LATERAL; COMMENT: root repair; [facility] Medical History Medical History Date [...] obesity wit h BMI of 45.0-49.9, adult ([facility]) Tubular adenoma of colon 05/15/2018 DX:Tubu lar adenoma of colon Irritable bowel syndrome wit h diarrhea 08/05/2018 DX:Irritable bowel syndrome with diarrhea Moderate persistent asthma w ith acute exacerbation 01/05/2019 DX:Moderate persistent asthm a with acute exacerbation DM (diabetes mellitus), type 2 with renal complications ([facility]/HCC V24, [facility]/HCC V28) 04/29/2018 DX:DM (diabetes mellitus), t ype 2 with renal complications ([facility]) Family History Medical History Relation Name [...] age to complete this topic Care Teams Car Unloader Helper Relationship Specialty Start Date End Date Nicola Spears MD [address] [place] [address] PCP - General Internal Medicine 10/27/21
== END 2025-05-04 10:57 | disposition home or self-care (01) ==
LOC: HO.HOSX 10:56
PROVIDERS: Visit Provider Orthopaedic Surgery
DX: S83.241A Other tear of medial meniscus, current injury, right knee, initial encounter (principal); X58.XXXA Exposure to other specified factors, initial encounter; Y92.89 Other specified places as the place of occurrence of the external cause; Y93.89 Activity, other specified; Y99.8 Other external cause status
CPT/HCPCS: 73562; 99202

== ENCOUNTER 2025-05-04 12:49 | Outpatient (AMB) | payer OTHER, SELFPAY ==
[2025-05-04 13:12] VITALS: BMI 45.5
--- NOTE | 2025-05-04 13:12 | A.OFFVIS_ITS ---
Vital Signs 05/04/25 13:12 Height 4 ft 11 in Weight 225 lb 8 oz BMI 45.5 Intake Visit Reasons: Right knee pain and giving way Intake Note: Susan is a 44 year old female who presents with complaints of progressively worsening right knee pain and giving way. The patient states that she underwent right knee surgery in [place], [place] in 2019. She got mild relief from that procedure. Most of the pain is along the medial aspect of her knee. She has tried physical therapy exercises which aggravated her pain. She has also tried Tylenol and anti-inflammatory medicines which gave her minimal relief. Allergies Heparin Analogues (HEPARIN AGENTS) Allergy (Intermediate, Verified 05/04/25 13:12) HIVES, RASH, SEVERE BRUISING dulaglutide (From Trulicity) Allergy (Verified 05/04/25 13:12) Rash Medication List - Last Reconciled 05/04/25 by Steve Barrientos MD acetazolamide ER 500 mg PO DAILY albuterol sulfate 2.5 mg (3 mL) inhalation Q4-6H PRN albuterol sulfate 90 mcg/actuation (Ventolin HFA) 2 puffs inhalation QID PRN alprazolam 0.25 - 0.5 mg orally 1 tab 30 minutes prior to MRI, may repeat dose x's 1 (max 4 tabs in 1 day); 1 day MDD 1 mg blood sugar diagnostic (FreeStyle Lite Strips) daily blood-glucose sensor (FreeStyle Zeynep 3 Sensor device) As directed canagliflozin (Invokana) 300 mg PO DAILY celecoxib (Celebrex) 100 mg PO Q12H 30 days cholecalciferol (vitamin D3) 1,250 mcg PO QWEEK clonidine HCl 0.3 mg PO BID dupilumab (Dupixent) 300 mg (2 mL) subcut Q2W famotidine (Pepcid) 20 mg PO BEDTIME 30 days fluticasone furoate-vilanterol 200-25 mcg/dose (Breo Ellipta) 1 inh inhalation DAILY galcanezumab-gnlm (Emgality) 300 mg (3 mL) subcut Q30D 30 days glyburide 10 mg (2 x 5 mg) PO BID insulin glargine (Lantus Solostar U-100 Insulin) 20 units (0.2 mL) subcut BID lidocaine HCl 2% (Lidocaine Viscous) 1 mL mucous membrane QID PRN 30 days magnesium L-threonate mg PO metoclopramide HCl 5 - 10 mg (1 - 2 x 5 mg) PO Q4-6H 30 days MDD 4 tabs onabotulinumtoxinA (Botox) 200 units IM ONCE 12 weeks ondansetron 4 - 8 mg (1 - 2 x 4 mg) PO Q6-8H PRN 30 days oral dosing syringes 1 mL syringes without needle. To be used as directed with viscous lidocaine intranasal order. Oxygen Home Use Start home O2 at 15-25 L/min via non-rebreather facemask x's 15- 20 minutes at onset of cluster headache attack. Patient will require both M tanks and E tanks. pen needle, diabetic (Ultra-Thin II Insulin Pen [place]) As directed riboflavin (vitamin B2) 400 mg PO DAILY 30 days rimegepant (Nurtec ODT) 75 mg PO Q OTHER DAY sertraline 50 mg PO DAILY thiamine HCl (vitamin B1) 50 mg (1/2 x 100 mg) PO DAILY PFSH Medical History (Updated 05/04/25 @ 13:32 by Steve Barrientos MD) GERD (gastroesophageal reflux disease) Pseudotumor cerebri Anxiety Depression Morbid obesity Asthma Sleep apnea Hypertension IBS (irritable bowel syndrome) DVT (deep venous thrombosis) COVID-19 Diabetes Surgical History [place] teeth extracted Hx of carpal tunnel repair Hx of tonsillectomy Hx of knee surgery Family History Maternal Grandfather Substance abuse Heart attack Maternal Grandmother Stomach cancer Father Diabetes Asthma Mother Asthma Social History (Updated 03/09/25 @ 08:43 by Lisa Hill [facility]) Household Members: Family Housing: House Do you presently have visiting nurse or other home services: No 75 years or older and lives alone: No Alcohol intake: current Alcohol intake frequency: holidays/special occasions only Patient Tobacco Use Status: Never used Tobacco e-Cigarette/Vaping Use: Never Used Advance Directives Date on File: 06/29/22 service: No Current occupational status: employed Cognitive needs: Yes Hearing needs: Yes Vision needs: Yes (wear glasses) Physical Exam Vital Signs: BMI result Body Mass Index 45.5 Const Other: Well-nourished well-developed very friendly female awake alert and oriented x3 in no acute distress Extrem Other: Right knee examination shows that the surgical incisions are well healed, no erythema, mild crepitus with range of motion, tenderness along her medial joint line, positive Clifford's test, no instability Results Reviewed Results Reviewed: Standing full weight-bearing x-rays of the patient's right knee show mild to moderate joint space narrowing most significant in the medial compartment, no acute bony abnormalities Assessment & Plan Assessment & Plan (1) Tear of medial meniscus of right knee: Code(s): S83.241A - Other tear of medial meniscus, current injury, right knee, initial encounter Category: Medical Plan Ms. Escobedo presents with right knee pain and mechanical symptoms most likely due to a recurrent medial meniscus tear. Thus, I will send the patient for an MRI of her right knee for further evaluation. I will see her back once the MRI is completed to discuss the findings and treatment options. She will follow-up as instructed. I spent 20 minutes in reviewing the patient's records and imaging studies, seeing the patient and documenting in the medical record. Orders: Orders MR knee RT wo con 05/05/25 S83.241A - Other tear of medial meniscus, current injury, right knee, initial encounter XR knee RT 3V Today M25.561 - Pain in right knee Coding Level of Care Code New Pt Level 3 (88734) Complex EM visit Add On G2211 Diagnoses Tear of medial meniscus of right knee S83.241A
--- OUTSIDE RECORDS SUMMARY | 2025-05-04 14:01 | XMS_ITS | Clinical Summary ---
Author Organization [facility] ity Address [address] [place] [address] Care Team Providers Care Pediatric Speech Language Pathologist Name Role Phone Nicola Spears MD Primary Care Provider [phone] Surgical History Surgery Date Site/Laterality Comments CARPAL TUNNEL RELEASE PROCEDURE: ID NEUROPLASTY &/TRANSPOS MEDIAN NRV CARPAL TUNNE; COMMENT: bilateral TONSILLECTOMY PROCEDURE: HISTORICAL TONSILLECTOMY COLONOSCOPY 05/01/2018 PROCEDURE: OUTSIDE COLONOSCOPY; COMMENT: diminutive tubular adenoma polyp. random colonic bx normal. KNEE ARTHROSCOPY W/ MENISCAL REPAIR 12/11/2019 PROCEDURE: ID ARTHROSCOPY KNEE W/MENISCUS RPR MEDIAL/LATERAL; COMMENT: root [...] obesity wit h BMI of 45.0-49.9, adult ([facility]) Tubular adenoma of colon 05/15/2018 DX:Tubu lar adenoma of colon Irritable bowel syndrome wit h diarrhea 08/05/2018 DX:Irritable bowel syndrome with diarrhea Moderate persistent asthma w ith acute exacerbation 01/05/2019 DX:Moderate persistent asthm a with acute exacerbation DM (diabetes mellitus), type 2 with renal complications ([facility]/HCC V24, [facility]/HCC V28) 04/29/2018 DX:DM (diabetes mellitus), t ype 2 with renal complications ([facility]) Family History Medical History Relation Name [...] age to complete this topic Care Teams Pediatric Speech Language Pathologist Relationship Specialty Start Date End Date Nicola Spears MD [address] [place] [address] PCP - General Internal Medicine 10/27/21
--- OUTSIDE RECORDS SUMMARY | 2025-05-04 14:01 | XMS_ITS | Data Portability ---
Author Organization [facility] [employer], [employer] Address [address] [place] [address] [place] [address] Care Team Providers Care Waredresser Name Role Phone JAZMYNE LINDO Referring Provider [...] likely that the CSF assays sent by [facility] after September 10, 2023 lumbar puncture [...] find: Ophthalmology note, CSF results sent after [facility] Follow up after mrossen Not [...] likely that the CSF assays sent by [facility] after September 10, 2023 lumbar puncture [...] cervical spine without contrast February 13, 2024 [facility] radiology: Suboptimal evaluation secondary to motion. Within this constraint: The cervical spinal cord is normal in signal intensity. There is no high-grade central spinal canal stenosis. Up to moderate bilateral neuroforaminal stenosis at C4-5. MRV brain with and without IV contrast, [facility], compared to brain MRI December 17, 2018 and MR a head October 01, 2023 [facility]: No cerebral venous thrombosis, unremarkable study more generally. MRA head without contrast [facility] October 02, 2023: Normal. [id number] clear, colorless, WBC = 0, RBC = 12/8 [2 #4 presumably], glucose 106, total protein 25.1 serum: September 10 2023 glucose 210 test negative Lumbar puncture note [facility], September 10, 2023, for chief complaint [...] at that point I would look at [facility] interventional radiology and have her follow-up [...] By Organization Details Last Modified Time 01/27/2024 84182 Discussion acros s issues of diagnoses and management and same day associated chart review and management greater than 50% greater than 60 minutes terrance Not available 01/27/2024 14:30:31 03/24/2024 91999 PREVIOUS DISCUSSION >>>>>>>>January 27, 2024 initial neurology [...] ast No observ ation record ed. [email or web address] [facility] [address] [place], [address], 03/25/2024 16:03:10 Result Notes None recorded. Procedures Surgical History Date Name Laterality Status Provider Name and Address Organization Details Recorded Time 03/24/2024 DATA REVIEW completed Ilya Mckeon MD [address] [place], [place] [address], [phone], [facility] Neurology [facility] 03/24/2024 10:16:01 01/27/2024 DATA REVIEW completed Ilya Mckeon MD [address] [place] [address], [phone], [facility]rology [facility] 01/27/2024 14:11:59 Imaging Results None recorded. Procedure Notes None recorded. Medical Equipment None Reported. Allergies Allergen ID Allergen Name Allergen Category Reaction Reaction Severity Criticality Documentation Date Start Date Code Code System Note Provider Name and Address Organization Details Recorded Time 3895 heparin medicatio n Not available Not available Not available 01/27/2024 5224 RxNorm Eli Vegas [facility] 13:24:25 Medications Name Sig Start [...] Updated DateTime 01/27/2024 149.86 cm 46 kg/m2 776130.06 g 12 /min Eli Vegas [facility] 01/27/2024 13:24:17 Social History Question Answer Notes LastModified by Organizat ion Details LastModified Time Tobacco Smoking Status Never Smoker Eli haile [facility] 01/27/2024 13:26:01 What Is Your Level Of Caffeine Consumption? Moderate 1 Cup Daily Information not available 01/27/2024 What Is The Highest Grade Or Level Of School You Have Completed Or The Highest Degree You Have Received? [id number] Information not available 01/27/2024 Which Of Your [...] B12 deficiency N Heart Attack (NE) N Diabetes Y Bleeding Disorder N Tuberculosis [...] SNOMED-CT Code Diagnosis ICD10 Code Diagnosis Note [id number] Ilya Mckeon MD [facility] [address] [place] [address] [place] [address] 01/27/2024 12:43:24 01/27/2024 15:32:53 Benign intracranial hypertension 45748157 G93.2 Migraine without aura 56 546127 G43.009 [id number] Ilya Mckeon MD [facility] [address] [place] [address] [place] [address] 03/24/2024 09:45:33 03/24/2024 10:51:41 Benign intracranial hypertension 15557106 G93.2 Migraine without aura 56 073866 G43.009 Health Concerns Section Related Observation LastModified by Organization Liamgwen ls LastModified Time None Recorded Concern Status LastModified by Organization Details LastModified Time None Recorded Advance Directives Directive None Recorded Payers Insurance Date Sequence Insurance Name Policy Number Policy Cowan Covered Member ID Cowan Member ID Guarantor Name 04/01/[address] 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
== END 2025-05-04 13:27 | disposition home or self-care (01) ==
LOC: HO.HOS 12:50
PROVIDERS: PCP Nurse Practitioner Family; Visit Provider Orthopaedic Surgery
DX: S83.241A Other tear of medial meniscus, current injury, right knee, initial encounter (principal)
CPT/HCPCS: 99203; G2211

== ENCOUNTER → 2025-05-04 13:00 | Outpatient (BNV) | payer OTHER, SELFPAY | PROVIDERS: Visit Provider Radiology Diagnostic Radiology | DX: M17.11 Unilateral primary osteoarthritis, right knee (principal) | CPT/HCPCS: 73562 ==

== ENCOUNTER 2025-05-17 07:16 | Outpatient (REF) | payer OTHER, SELFPAY ==
--- NOTE | ~2025-05-17 | MR_ITS ---
EXAM: MRI LOWER EXTREMITY JOINT, KNEE, right TECHNIQUE: Multiplanar multisequence MR imaging performed through the right knee without contrast. INDICATION: S83.241A - Other tear of medial meniscus, current injury, right knee, injury with anterior pain and swelling for one year PRIOR: May 04, 2025 x-ray FINDINGS: Menisci: Lateral Meniscus: There is intermediate signal in the posterior horn of the lateral meniscus not clearly extending to an articular surface (sagittal image 20). No other areas raise question of tear. Medial Meniscus: There is attenuation of the posterior root of the medial meniscus concerning for a tear. There is mild extrusion of the medial meniscal body. The body of the meniscus is degenerated and frayed. ACL/PCL: ACL is intact. PCL is intact. Extensor mechanism: There is a physiologic volume of joint fluid. Fat pads and tendons are unremarkable. MCL/LCL: MCL is bowed outward by extruded meniscus. Proximal fibers are mildly thickened with increased signal likely from remote partial tear and/or degeneration. There is also an obliquely oriented screw extending from the region of proximal MCL insertion on tibia directed cephalad and laterally. LCL complex is intact. Articular cartilage: Patellofemoral Compartment: There is a focal 5 mm partial-thickness articular cartilage defects involving medial facet of patella in the lower third patella involving at least half of the cartilage thickness. There is very shallow partial thickness cartilage loss across the lower third patella, lateral facet likely extending to mid third patella, median ridge. There is a focal full-thickness fissure through the articular cartilage of the trochlear groove in the mid third trochlea. There is adjacent reactive marrow signal change. There is possible delamination. Lateral Compartment: There is a small focal shallow fissure in the articular cartilage in the central weightbearing region lateral tibial plateau. Lateral compartment cartilage is intact otherwise. Medial Compartment: There is diffuse thinning of articular cartilage across the central weightbearing region in the medial femoral condyle, grade 2 versus grade 3. The surface appears mildly undulating. There is mild thinning of articular cartilage in the medial tibial plateau, grade I chondromalacia. Bones/Marrow: No marrow replacing lesions. There are tricompartmental marginal osteophytes. Soft tissues: There is no mass, fluid collection, muscle edema, or fatty infiltration. MR/MR knee RT wo con IMPRESSION: Moderate degenerative changes consistent with osteoarthritis, most advanced in the medial compartment and trochlea. The medial meniscus body is moderately extruded from the joint line. The body is also degenerated and frayed. Additionally, there is an attenuated posterior root of the medial meniscus consistent with a tear. Oblique linear signal in the posterior horn lateral meniscus does not meet MRI criteria for a tear. Grade 1 sprain versus chronic degeneration of proximal fibers superficial MCL. There is evidence of prior MCL repair at the tibia. Electronically signed by: Cliff Krishna MD 05/17/2025 10:33 AM EDT
--- OUTSIDE RECORDS SUMMARY | 2025-05-17 07:19 | XMS_ITS | Clinical Summary ---
Author Organization [facility] Address [address] [place] [address] Phone Care Team Providers Care Senior Assistant Manager Name Role Phone Salvador Marcus MD Unavailable [phone] Jonna Bolaños MD Primary Care Provider Allergies Active Allergy Reactions Criticality Noted Date Comments Heparin Rash Low 04/05/2018 Skin bruising Dulaglutide GI Upset 08/05/2023 Medications albuterol 90 mcg/actuation inhaler Inhale 2 puffs into the lungs. 0 Active riboflavin, vitamin B2, 400 mg Tab Take 1 tablet by mouth every morning. 4 Active magnesium oxide (MAG-OX) 400 mg (241.3 mg elemental) tablet Take 400 mg by mouth daily. 4 Active acetaZOLAMIDE (DIAMOX) 125 MG tablet Take 125 mg by mouth 3 (three) times a day. 4 Active EMGALITY PEN 120 mg/mL subcutaneous injection Inject 120 mg under the skin every 30 (thirty) days. 4 Active topiramate (TOPAMAX) 50 MG tablet Take 50 mg by mouth 2 (two) times a day. 4 Active baclofen (LIORESAL) 10 MG tablet Take 10 mg by mouth nightly at bedtime. 4 Active metoclopramide HCl (REGLAN) 5 MG tablet Take 5 mg by mouth 4 (four) times a day. 4 Active semaglutide (OZEMPIC) 1 mg/dose (2 mg/1.5 mL) subcutaneous injection pen Inject 2 mg under the skin every 7 days. 3 Active LANTUS SOLOSTAR U-100 INSULIN 100 unit/mL (3 mL) InPn injection pen Inject 20 Units under the skin 2 (two) times a day. 3 Active thiamine (VITAMIN B-1) 100 MG tablet Take 100 mg by mouth daily. Active UBRELVY 100 mg tablet Take 100 mg by mouth once as needed for migraine. 4 Active Family History Medical History Relation Comments Diabetes mellitus Mother 2 Relation Status Comments Mother 1 Mother 2 Social History Tobacco Use Types Packs/Day Years Used Date Smoking Tobacco: Never Smokeless Tobacco: Never Tobacco Cessation:Counseling Given: Not Answered Education Answer Date Recorded Are you interested in more education? Not on ritchie e 02/15/2023 Are you concerned about learning? Not on file 02/15/2023 No 02/15/2023 No 02/15/2023 Digital Access Answer Date Recorded No 03/15/2023 No 03/15/2023 Reliable internet access at home? Not on file 03/15/2023 Device with a working camera? Not on file Intimate Partner Violence Answer Date R ecorded Are you denied basic needs s uch as food, clothing, or medical care? No 08/05/2023 In the past 12 months have y ou been in a relationship with a person who hurts, threatens, or tries to control you? No 08/05/2023 Are you denied basic needs s uch as food, clothing, or medical care? No 08/05/2023 In the past 12 months have y ou been in a relationship with a person who hurts, threatens, or tries to control you? No 08/05/2023 Comments Unknown Sex and Gender Information Value Date Recorded Sex Assigned at Female 07/19/2020 2:40 PM EDT Legal Sex Female 9:22 PM EDT Gender Identity Female 07/19/2020 2:40 PM EDT Sexual Orientation Straight 07/19/2020 2: 40 PM EDT Last Filed Vital Signs Vital Sign Reading Time Taken Comments Blood Pressure 139/87 12/20/2023 10:33 AM EST Pulse 92 12/20/2023 10:33 AM EST Temperature 36.9 C (98.4 F) 12/20/2023 10:33 AM EST Respiratory Rate 16 08/05/2023 4:06 PM EDT Oxygen Saturation 97% 12/20/2023 10:33 AM EST Inhaled Oxygen Concentration - - Weight 102.5 kg (226 lb) 12/20/2023 10:33 AM EST Height 153.4 cm (5' 0.39 ) 12/20/2023 10:[address] Body Mass Index 43.56 12/20/2023 10:33 AM EST Plan of Treatment Health Maintenance Due Date Last Done Comments DEPRESSION SCREENING 1992 HEPATITIS C SCREENING 1998 HIV ONE-TIME SCREENING (18-6 5 YEARS) 1998 PAP SMEAR 2001 SCREENING FOR DIABETES 2015 MAMMOGRAM 2020 COVID-19 VACCINE (2023-2 5 season) 2024 05/24/2021, 04/26/2021 Adult Td,Tdap Booster 04/29/2028 04/29/2018 , 01/28/2014 SMOKING STATUS SCREENING (On ce After 26 Yrs) Completed 12/20/2023 HEPATITIS A VACCINES Aged Out No long er eligible based on patient's age to complete this topic HIB VACCINES Aged Out No longer eligi ble based on patient's age to complete this topic MENINGOCOCCAL VACCINES (ACWY) Aged Out No longer eligible based on patient's age to complete this topic MENINGOCOCCAL VACCINES (B) Aged Out N o longer eligible based on patient's age to complete this topic PNEUMOCOCCAL VACCINES (0-49 years) Aged Out No longer eligible b ased on patient's age to complete this topic Medical Devices Not on file Insurance [facility] [place] [address] [place] [address] [place] [address] [employer] [facility] [place] [address] ACO Care Teams Senior Assistant Manager Relationship Specialty Start Date End Date Jonna Bolaños MD [address] [place] [phone] PCP - General Internal Medicine 08/05/23 Salvador Marcus MD [address] [place] [phone] [email or web address] Historical [place]MR Provider 08/06/17 Additional Source Comments The information contained in this document represents components of the legal health record. It is not the complete legal health record.[facility]
--- OUTSIDE RECORDS SUMMARY | 2025-05-17 07:19 | XMS_ITS | Clinical Summary ---
Author Organization [facility] ity Address [address] [place] [address] Care Team Providers Care Production Team Advisor Name Role Phone Nicola Spears MD Primary Care Provider [phone] Surgical History Surgery Date Site/Laterality Comments CARPAL TUNNEL RELEASE PROCEDURE: LA NEUROPLASTY &/TRANSPOS MEDIAN NRV CARPAL TUNNE; COMMENT: bilateral TONSILLECTOMY PROCEDURE: HISTORICAL TONSILLECTOMY COLONOSCOPY 05/01/2018 PROCEDURE: OUTSIDE COLONOSCOPY; COMMENT: diminutive tubular adenoma polyp. random colonic bx normal. KNEE ARTHROSCOPY W/ MENISCAL REPAIR 12/11/2019 PROCEDURE: LA ARTHROSCOPY KNEE W/MENISCUS RPR MEDIAL/LATERAL; COMMENT: root repair; [facility] Medical History Medical History [...] obesity wit h BMI of 45.0-49.9, adult ([facility]) Tubular adenoma of colon 05/15/2018 DX:Tubu lar adenoma of colon Irritable bowel syndrome wit h diarrhea 08/05/2018 DX:Irritable bowel syndrome with diarrhea Moderate persistent asthma w ith acute exacerbation 01/05/2019 DX:Moderate persistent asthm a with acute exacerbation DM (diabetes mellitus), type 2 with renal complications ([facility] V24, [facility] V28) 04/29/2018 DX:DM (diabetes mellitus), t ype 2 with renal complications ([facility]) Family History Medical History Relation Name Comments [...] Panel) 06/15/2024 Colorectal Cancer Screening: Colonoscopy 06/15/2024 Diabetes: Annual Urine Albumin-Creatinine Ratio (uACR) 06/15/2024 Diabetes: Blood Sugar Contro l Test (HGBA1C) 06/15/2024 HIV Screening 06/15/2024 Hepatitis C Screening 06/15/2024 Social Influencers of Health Screening 06/15/2024 COVID-19 Vaccine (1 - 2023-2 5 season) 2024 Depression Screening 10/21/2024 Influenza Vaccine (#1) 2025 DTaP,Tdap,and Td Vaccines [...] age to complete this topic Care Teams Production Team Advisor Relationship Specialty Start Date End Date Nicola Spears MD [address] [place] [address] PCP - General Internal Medicine 10/27/21
--- OUTSIDE RECORDS SUMMARY | 2025-05-17 07:19 | XMS_ITS | Data Portability ---
Author Organization [facility], [facility] Address [address] [place] [address] [place] [address] Care Team Providers Care Quiller Hand Name Role Phone JAZMYNE LINDO Referring Provider [...] likely that the CSF assays sent by [facility] after September 10, 2023 lumbar puncture [...] find: Ophthalmology note, CSF results sent after [facility] Follow up after mrossen Not [...] likely that the CSF assays sent by [facility] after September 10, 2023 lumbar puncture [...] cervical spine without contrast February 13, 2024 [facility] radiology: Suboptimal evaluation secondary to motion. Within this constraint: The cervical spinal cord is normal in signal intensity. There is no high-grade central spinal canal stenosis. Up to moderate bilateral neuroforaminal stenosis at C4-5. MRV brain with and without IV contrast, [facility], compared to brain MRI December 17, 2018 and MR a head October 01, 2023 [facility]: No cerebral venous thrombosis, unremarkable study more generally. MRA head without contrast [facility] October 02, 2023: Normal. [id number] clear, colorless, WBC = 0, RBC = 12/8 [2 #4 presumably], glucose 106, total protein 25.1 serum: September 10 2023 glucose 210 test negative Lumbar puncture note [facility], September 10, 2023, for chief complaint [...] at that point I would look at [facility] interventional radiology and have her follow-up [...] By Organization Details Last Modified Time 01/27/2024 [id number] Discussion acros s issues of diagnoses and management and same day associated chart review and management greater than 50% greater than 60 minutes terrance Not available 01/27/2024 14:30:31 03/24/2024 [id number] PREVIOUS DISCUSSION >>>>>>>>January 27, 2024 initial neurology [...] ast No observ ation record ed. [email or web address] [facility] [address] [place], [address], 03/25/2024 16:03:10 Result Notes None recorded. Procedures Surgical History Date Name Laterality Status Provider Name and Address Organization Details Recorded Time 03/24/2024 DATA REVIEW completed Ilya Mckeon MD [address] [place], [place] [address], [address], [facility] 03/24/2024 10:16:01 01/27/2024 DATA REVIEW completed Ilya Mckeon MD [address] [place] [address], [phone], [facility] 01/27/2024 14:11:59 Imaging Results None recorded. Procedure Notes None recorded. Medical Equipment None Reported. Allergies Allergen ID Allergen Name Allergen Category Reaction Reaction Severity Criticality Documentation Date Start Date Code Code System Note Provider Name and Address Organization Details Recorded Time 3895 heparin medicatio n Not available Not available Not available 01/27/2024 5224 RxNorm Eli Vegas [facility] 13:24:25 Medications Name Sig Start Date Stop [...] Updated DateTime 01/27/2024 149.86 cm 46 kg/m2 208426.06 g 12 /min Eli [facility] [...] Or The Highest Degree You Have Received? [id number] Information not available 01/27/2024 Which Of Your [...] N Thyroid Problems N Brain Tumors N COPD or emphysema N Depression Y Lung Disease N Encephalitis N PTSD N Vitamin B12 deficiency N Heart Attack ([place]) N Spine Problems N Obstructive Sleep Apnea N Alcoholism N Diabetes Y Autoimmune disease N Bleeding Disorder N Arthritis N Developmental Problems N Tuberculosis N Cerebral Palsy N Neck [...] SNOMED-CT Code Diagnosis ICD10 Code Diagnosis Note [id number] Ilya Mckeon MD [facility] [address] [place] [address] [place] [address] 01/27/2024 12:43:24 01/27/2024 15:32:53 Benign intracranial hypertension 40665856 G93.2 Migraine without aura 56 340803 G43.009 [id number] Ilya Mckeon MD [facility] [address] [place] [address] [place] [address] 03/24/2024 09:45:33 03/24/2024 10:51:41 Benign intracranial hypertension 84221799 G93.2 Migraine without aura 56 407540 G43.009 Health Concerns Section Related Observation LastModified by Organization Detai ls LastModified Time None Recorded Concern Status LastModified by Organization Details LastModified Time None Recorded Advance Directives Directive None Recorded Payers Insurance Date Sequence Insurance Name Policy Number Policy Cowan Covered Member ID Cowan Member ID Guarantor Name 04/01/2024 1 [facility] [id number] Susan Escobedo [id number] Susan Escobedo OBGyn Episode No OBEpisode recorded.
== END 2025-05-17 07:17 | disposition home or self-care (01) ==
LOC: HO.MRI 07:16
PROVIDERS: PCP Nurse Practitioner Family; Visit Provider Orthopaedic Surgery
DX: S83.241A Other tear of medial meniscus, current injury, right knee, initial encounter (principal)
CPT/HCPCS: 73721

== ENCOUNTER → 2025-05-17 07:20 | Outpatient (BNV) | payer OTHER, SELFPAY | PROVIDERS: PCP Nurse Practitioner Family; Visit Provider Radiology Diagnostic Radiology | DX: M17.11 Unilateral primary osteoarthritis, right knee (principal) | CPT/HCPCS: 73721 ==

== ENCOUNTER 2025-05-31 07:40 | Outpatient (AMB) | payer OTHER, SELFPAY ==
--- NOTE | 2025-05-31 07:40 | A.OFFVIS_ITS ---
Intake Visit Reasons: 3m f/u OK per [facility] Intake Note: Patient presents follow up Migraine. MRI's/Ophth in chart. Pt declined Psych. Digital Analytics Manager Required: No Accompanied by: Self / Same As Patient Allergies Heparin Analogues (HEPARIN AGENTS) Allergy (Intermediate, Verified 06/15/25 09:05) HIVES, RASH, SEVERE BRUISING dulaglutide (From Trulicity) Allergy (Verified 06/15/25 09:05) Rash Medication List - Last Reconciled 05/31/25 by JASWANT Motta acetazolamide ER 500 mg PO DAILY albuterol sulfate 2.5 mg (3 mL) inhalation Q4-6H PRN albuterol sulfate 90 mcg/actuation (Ventolin HFA) 2 puffs inhalation QID PRN alprazolam 0.25 - 0.5 mg orally 1 tab 30 minutes prior to MRI, may repeat dose x's 1 (max 4 tabs in 1 day); 1 day MDD 1 mg blood sugar diagnostic (FreeStyle Lite Strips) daily blood-glucose sensor (Here On BizStyle Zeynep 3 Sensor device) As directed canagliflozin (Invokana) 300 mg PO DAILY celecoxib (Celebrex) 100 mg PO Q12H 30 days cholecalciferol (vitamin D3) 1,250 mcg PO QWEEK clonidine HCl 0.3 mg PO BID dupilumab (Dupixent) 300 mg (2 mL) subcut Q2W famotidine (Pepcid) 20 mg PO BEDTIME 30 days fluticasone furoate-vilanterol 200-25 mcg/dose (Breo Ellipta) 1 inh inhalation DAILY galcanezumab-gnlm (Emgality) 300 mg (3 mL) subcut Q30D 30 days glyburide 10 mg (2 x 5 mg) PO BID insulin glargine (Lantus Solostar U-100 Insulin) 20 units (0.2 mL) subcut BID lidocaine HCl 2% (Lidocaine Viscous) 1 mL mucous membrane QID PRN 25 days magnesium L-threonate 48 mg PO DAILY metoclopramide HCl 5 - 10 mg (1 - 2 x 5 mg) PO Q4-6H 30 days MDD 4 tabs onabotulinumtoxinA (Botox) 200 units IM ONCE 12 weeks ondansetron 4 - 8 mg (1 - 2 x 4 mg) PO Q6-8H PRN 30 days oral dosing syringes 1 mL syringes without needle. To be used as directed with viscous lidocaine intranasal order. Oxygen Home Use Start home O2 at 15-25 L/min via non-rebreather facemask x's 15- 20 minutes at onset of cluster headache attack. Patient will require both M tanks and E tanks. pen needle, diabetic (Ultra-Thin II Insulin Pen [place]) As directed riboflavin (vitamin B2) 400 mg PO DAILY 30 days rimegepant (Nurtec ODT) 75 mg PO Q OTHER DAY sertraline 50 mg PO DAILY thiamine HCl (vitamin B1) 50 mg (1/2 x 100 mg) PO DAILY HPI Comments Details: 45-year-old female presents for follow-up televideo visit for chronic migraine, h/o IIH, cervicalgia, dizziness, and sleep apnea. Interval workup: 03/26/2025, brain MRV with and without contrast: Hypoplastic left transverse sinus, normal variant. Patent dural venous sinuses. 03/26/2025, brain MRA without contrast:? Normal MR Angiography 03/26/2025, brain MRI with and without contrast: * No acute findings. * Borderline low-lying cerebellar tonsils, which extend approximately 4 mm below the foramen magnum. * A few tiny scattered foci of T2 signal prolongation within the white matter are nonspecific. This is likely within normal limits for age and can be seen with migraine syndromes. 03/25/2025 MR C-spine without contrast: * Diffusely abnormal marrow signal. This could be related to a marrow replacing process including malignancy. * C3-4: There is mild spinal stenosis and moderate bilateral foraminal narrowing. * C4-5: There is mild spinal stenosis and left foraminal herniation resulting in moderate bilateral foraminal narrowing. Unchanged. * C5-6: There is mild spinal stenosis and mild bilateral foraminal narrowing. * T1-2: 10 x 5 mm (CC by AP) Central disc herniation results in mild spinal stenosis. Upon reviewing the above studies, the patient was referred to Rheumatology for further assessment of the C-spine MRI finding of diffuse abnormal marrow signal. Pt has seen hematology, and is being scheduled for a bone marrow biopsy. On 05/10/2025, patient had [facility] neurosurgery consult with Lauri Burroughs MD, who did not feel that patient would benefit from cervical spine surgery. However, patient had been referred to [facility] neuro endovascular surgeon. Pt reports the cluster headache attacks have subsided, noting she has not needed to refill her home O2 in 2 weeks. However, the headaches in the back of her head have been horrible, a/w back of head and neck pain, as well as dizziness. She can feel overwhelmed if she is out among a lot of people- especially as this can make her feel off-balance Her vision is messing with me . * Last eye exam was reassuring. * Is scheduled to have ophthalmology consult specifically for diplopia She expresses frustration that she would love to be able to return to work She has stopped a few treatments, which were not helping, including Celebrex. 02/26/2025, Previous HPI: Pt reports nothing is working- she is not feeling any better. She has had to stop working completely at this point, as she needs to take her time or take breaks doing her routine ADLs/IADLs She would like to return to work sooner than later. She is having increased pain, the neck pain is interfering with her sleep, the muscle spasms are worse, the face pain persists. She is still having bouts of swelling in the posterior neck occipital to lower neck. She stopped PT about a month ago, as it was no longer having any benefit- in terms of both neck pain, headaches and dizziness. She stopped baclofen, as it was not helping. She is sleeping a lot during the day. Patient previously returned her CPAP machine. Still is struggling with her vision- things look blurry when watching TV or if someone walks by her. States she has difficulty with depth perception when taking turns. Unsure if she has diplopia- but can see shadows of objects or shadows trailing an object that is moving. The dizziness and vision issues prevent her from driving. She is followed by [facility]- has been having eye exams, no evidence of papilledema. She is dizzy a lot of the day. The dizziness, photophobia, phonophobia- prevents her from leaving her house for too long, as large amounts of movement makes her more dizzy, noise and lights also overwhelm her. Dizziness is also triggered by bending over and over and getting up quickly. Continues to have frequent headaches. Can have headaches in the middle of the night. She states the Nurtec helps the facial pain quickly, but not the temporal or other headache. Baseline headache characteristics: 1- Headache is throbbing/pressure, temples, lower occipital/neck/shoulder region a/w brain fog, room spinning or not right in space dizziness, tinnitus, nausea, osmophobia, photophobia, phonophobia, allodynia, cognitive and speech difficulties, and previously right sided facial swelling.. 2- Brief severe sharp stabbing pains in the occipital region- can have several in 1 day, and then may have a few days w/o an attack. She cannot reproduce this, even w/ palpation. She also reports a new cluster headache, which started in the last 3-4 months. She describes this headache as severe, left facial jolting pain, may feel it in the left occipital region, a/w with restlessness, left watery eyes, lasts 15-20 minutes may repeat 2-3 times a day. She is continuing to have nausea despite metoclopramide and zofran use. recently was tested for H. Pylori- as her family had it. Is not on an H2 benja or PPI. She has a psychiatrist and a therapist- especially to help with the depression she feels as triggered by her chronic health symptoms and inability to work. [facility] Medical History GERD (gastroesophageal reflux disease) Pseudotumor cerebri Anxiety Depression Morbid obesity Asthma Sleep apnea Hypertension IBS (irritable bowel syndrome) DVT (deep venous thrombosis) COVID-19 Diabetes Surgical History [place] teeth extracted Hx of carpal tunnel repair Hx of tonsillectomy Hx of knee surgery Family History Maternal Grandfather Substance abuse Heart attack Maternal Grandmother Stomach cancer Father Diabetes Asthma Mother Asthma Social History Household Members: Family Housing: House Are you a primary customer care specialist to a significant other at home: No Do you presently have visiting nurse or other home services: No 75 years or older and lives alone: No Alcohol intake: current Alcohol intake frequency: holidays/special occasions only Patient Tobacco Use Status: Never used Tobacco e-Cigarette/Vaping Use: Never Used Advance Directives Date on File: 06/29/22 service: No Current occupational status: unemployed Cognitive needs: Yes Hearing needs: Yes Vision needs: Yes (wear glasses) Physical Exam Const General: cooperative and no acute distress Orientation/consciousness: patient oriented x3 Resp Effort & Inspection: normal respiratory effort and able to speak in complete sentences Neuro General: patient oriented x3 and moves all extremities Cranial nerves: Yes Normal facial strength present Cognition (Neuro): normal cognition Psych Appearance: grossly normal Mental Status: mental status grossly normal Speech and movement: Normal speech and movement present Affect: normal affect Attitude: cooperative Telehealth Telehealth Telehealth Platform: [facility] Location of provider rendering services: practice address Location of patient: address on file Patient Identification confirmed using: Name, : Yes Telehealth method: video Patient verbally consented to treatment: Yes Patient verbally consented to billing insurance company: Yes Patient informed of any privacy concerns related to visit: Yes Minutes spent on Phone/Video with Pt.: 25 Results Reviewed Results Reviewed: Pending consult: ? Status of [facility] ophthalmology consult which was scheduled in November of 2024. Consults completed: November 2024- ENT consult- hearing within normal limits 10/01/24, neuro-ophthalmology consult: no evidence of papilledema and was advised her to stop Acetazolamide, start Migranol supplement and a Mag L- threonate supplement, continue to work on wt loss- and close follow-up. January 2024- Dr Javon Vivas at [facility], Pt was offered trigger point injection tx, but pt opted to do this more locally. January 2024- Юлия Bello MD- Pt states she was also told her headache was more cervicogenic and not r/t to elevated intracranial pressure as she does not have papilledema, thus she stopped Acetazolamide at that time. Interval workup: 03/26/2025, brain MRV with and without contrast: Hypoplastic left transverse sinus, normal variant. Patent dural venous sinuses. 03/26/2025, brain MRA without contrast:? Normal MR Angiography 03/25/2025 MR C-spine without contrast: * Diffusely abnormal marrow signal. This could be related to a marrow replacing process including malignancy. * C3-4: There is mild spinal stenosis and moderate bilateral foraminal narrowing. * C4-5: There is mild spinal stenosis and left foraminal herniation resulting in moderate bilateral foraminal narrowing. Unchanged. * C5-6: There is mild spinal stenosis and mild bilateral foraminal narrowing. * T1-2: 10 x 5 mm (CC by AP) Central disc herniation results in mild spinal stenosis. Previous work-up: 06/11/24, CT/CT head/brain wo IV con IMPRESSION: 1. No evidence of acute intracranial hemorrhage or edematous territorial infarction. 2. 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 04/15/24, [facility]UE EMG/NCS, IMPRESSION: Normal study 02/13/24, MR/MR cervical spine wo con IMPRESSION: -Suboptimal evaluation secondary to motion. Within this constraint, no high- grade spinal canal stenosis. Up to moderate bilateral neural foraminal stenosis at C4-C5. -Central disc extrusion at T1-T2 indents the ventral thecal sac with mild canal stenosis. -Heterogeneous marrow signal is indeterminate and may represent red marrow. Correlation with laboratory values is recommended. 02/05/24, US/US soft tiss head and/or neck IMPRESSION: Area of concern as indicated by the patient in the base of the neck on the right corresponds with a 0.8 cm lymph node. 10/25/23, MR/MR venography head wo/w con IMPRESSION: No cerebral venous thrombosis. Unremarkable MRV of the head. 10/01/23, MR/MR angio head wo con IMPRESSION: Normal MRA of the head. 09/20/23, In-lab PSG: AHI 9/hr, REM AHI 37/hr, O2 william 79% 09/15/23, [facility]/10/23, Lumbar Puncture: Opening pressure was 33 cm, w/ normal CSF studies. 08/08/2023?, Cervical Spine 4 or 5 Views FINDINGS: No evidence of fracture or dislocation. Mild bilateral foraminal stenosis at C3-C4 and C4-C5. IMPRESSION: Mild degenerative changes in the cervical spine are outlined above 07/06/2023, Brain MRI w/wo, IMPRESSION: 1. No evidence of acute/subacute infarction, mass effect, or abnormal enhancement. 2. Borderline low cerebellar tonsils with slight crowding at the foramen magnum but without compression of the cervicomedullary junction. The appearance is unchanged compared to the MRI from 10 years ago. 3. A few scattered foci of nonspecific T2 signal abnormality are seen in the supratentorial white matter. Assessment & Plan Assessment & Plan (1) Chronic migraine without aura: Code(s): G43.709 - Chronic migraine without aura, not intractable, without status migrai nosus Category: Medical Qualifiers: Intractability: not intractable Status migrainosus presence: without status migrainosus Qualified Code(s): G43.709 - Chronic migraine without aura, not intractable, without status migrainosus (2) Cluster headache: Code(s): G44.009 - Cluster headache syndrome, unspecified, not intractable Category: Medical Qualifiers: Headache chronicity pattern: episodic headache Intractability: not intractable Qualified Code(s): G44.019 - Episodic cluster headache, not intractable (3) Cervicalgia: Comment: With muscle spasm Code(s): M54.2 - Cervicalgia Category: Medical (4) Intracranial hypertension: Comment: No recent evidence of papilledema. Code(s): G93.2 - Benign intracranial hypertension Category: Medical (5) Dizziness: Code(s): R42 - Dizziness and giddiness Category: Medical (6) Chiari I malformation: Code(s): G93.5 - Compression of brain Category: Medical (7) Diplopia: Code(s): H53.2 - Diplopia Category: Medical Plan For overall headache and dizziness management: Track headaches. Continue to optimize good self-care, including but not limited to maintaining a healthy diet, adequate fluid intake, adequate sleep, and engaging in regular physical activity. Continue to work w/ PCP regarding diabetes and weight management Continue to hold PT- [facility] [place] w/ Jazmin Dill PT. Hold referral for [facility]- for online multi visit cognitive behavioral pain management therapy-patient states she can not afford the co-pay at this time, but is hopeful to be able to in the future Continue Sertraline 50 mg daily in a.m., managed by patient's psychiatrist. Follow-up with Hematology as scheduled Upon review of patient's response to trialing the new treatment options below, Co Q10 and methazolamide, consider referral back to [facility] neurovascular or schedule follow-up LP. For mild RACHAEL: Pt has returned CPAP- was not tolerating well. Will monitor. For left-sided cluster headache: * Continue Emgality 300 mg subcutaneous monthly throughout cluster headache attack cycles * Continue home O2 at 15-25 L/min via non-rebreather facemask x's 15-20 minutes at onset of cluster headache attack. ?Patient will require both M tanks and E tanks. * Continue home Sphenopalatine Ganglion Block with Intranasal Lidocaine??2% viscous solution: Home Instructions for Intranasal Lidocaine/Sphenopalatine Ganglion Block * Do not take this by mouth. * This is for intranasal administration only * Draw up 1 ml of 2% viscous lidocaine into a thin 1ml dosing syringe (the syringe should be thin enough to be inserted deep into the nose).Self administer 1 mL of 2% viscous lidocaine solution into nasal passage on the same side as the head pain.?? * Lidocaine??may be administered into bilateral nasal passages if the headache/??facial pain is on both sides of the head. * Dose may be repeated x1 in 15 minutes. Max of 4 mL per nasal passage per day. Technique: * Lie down on your side curled up like a baby sleeping on its side, with your shoulder on the back of a firm pillow, and your head tilted back and rotated so you are looking up ~30 degrees. * Put the syringe into the lower nostril on the same side as your headache/facial pain, as far as it will comfortably go, with the tip pointing towards the outer (lateral) wall of the nostril. * Inject the contents of the syringe, and then sniff the medicine so that you feel it goes to the back of the nostril, but not into the throat. * If you feel burning or numbness into the eye, or if the eye tears, you know you have gotten the medicine where it needs to be. * Stay lying down with your head turned for 2 ? 3 minutes. * If your headache/facial pain is on both sides, roll over and repeat the procedure on the other side. Stay lying down for 2-3 minutes on this side. After sitting up: * When you sit up, whatever medicine has not been absorbed into your nose will roll back into your throat. * It will taste bitter and may make your throat numb. * Don?t eat or drink until the numbness has gone away ? otherwise you might swallow food or liquid into your windpipe. For cervicalgia in setting of cervical spondylosis: Patient has stopped Celebrex 100 mg every 12 hours-was ineffective Patient stopped baclofen due to inefficacy. Follow-up with pain management as scheduled ? For diplopia, blurry vision, depth perception difficulties, Chiari 1 malformation and history of IIH w/o papilledema: Ophthalmology consult for diplopia- scheduled Start methazolamide 25 mg tab 1 tab twice a day x2 weeks, then increase to 2 tabs twice a day Pt previously stopped acetazolamide, furosemide, and topiramate- per advice of ophthalmology. Follow-up with local flare breaker as scheduled Previous trials- Acetazolamide 125mg po tid- caused fatigue/numbness. ? For acute headache treatment: Continue Metoclopramide 5-10 mg as needed for nausea and/or migraine headache pain. Continue ondansetron 4-8 mg every 6-8 hours as needed for nausea Pepcid 20 mg daily- for her to trial through scheduled initial GI consult in March. Continue Nurtec 75mg daily as needed. Previous acute migraine medication trials: Tylenol- ineffective. Excedrin- ineffective. Sumatriptan 100mg tab- ineffective. Cyclobenzaprine 10mg qhs- causes excess drowsiness. Rizatriptan- ineffective. Ubrelvy- ineffective. Eletriptan- not fully effective. Acute migraine medication contraindications: None at this time ? For stabbing headache: Patient has stopped indomethacin- ineffective at low-dose. Would not increase dose due to current c/o persistent nausea. Future considerations- Tegretol trial. ? For chronic migraine headache prevention medication: Start Co Q10 400 mg daily in the morning-taken with a higher fat food Continue Riboflavin 400mg daily in the morning May adjunct with Migranol 1 cap daily in the morning and Magnesium L-Threonate 1 cap daily at bedtime Continue Botox 155 units IM injection every 12 weeks for chronic migraine. Previous migraine prevention medication trials: Gabapentin- ineffective. Amitriptyline- ineffective. Emgality ineffective. Qulipta-had some benefit but not fully effective. Topiramate- ? Efficacy, stopped per ophthalmology. Migraine prevention medication contraindications: BBs d/t asthma dx ? Will follow-up upon review of above and patient to follow-up in clinic in 3-4 months or sooner prn. Coding Level of Care Code Est Pt Level 4 (29064) Complex EM visit Add On G2211 Diagnoses Chronic migraine without aura without status migrainosus, not intractable G43.709 Intractability: not intractable Status migrainosus presence: without status migrainosus Episodic cluster headache, not intractable G44.019 Headache chronicity pattern: episodic headache Intractability: not intractable Cervicalgia M54.2 Intracranial hypertension G93.2 Dizziness R42 Chiari I malformation G93.5 Diplopia H53.2
--- OUTSIDE RECORDS SUMMARY | 2025-05-31 07:42 | XMS_ITS | Clinical Summary ---
Author Organization [facility] Address [address] [place] [id number] Phone Care Team Providers Care Print Color Operator Name Role Phone aSlvador Marcus MD Unavailable [phone] Jnona Bolaños MD Primary Care Provider [phone] Allergies Active Allergy Reactions Criticality Noted Date [...] topic Medical Devices Not on file Insurance [facility] [address] [address] [place] [address] [place] [address] [employer] [facility] [place] [address] [place] [address] ACO Care Teams Print Color Operator Relationship Specialty Start Date End Date Jonna Bolaños MD [address] [place] [id number] PCP - General Internal Medicine 08/05/23 Salvador Marcus MD [address] [place] [id number] [email or web address] Historical LMR Provider 08/06/17 Additional Source Comments The information contained in this document represents components of the legal health record. It is not the complete legal health record.[facility]
--- OUTSIDE RECORDS SUMMARY | 2025-05-31 07:42 | XMS_ITS | Clinical Summary ---
Author Organization [facility] ity Address [address] [place] [address] Care Team Providers Care Plastic Injection Mold Maker Name Role Phone Nicola Spears MD Primary Care Provider [phone] Surgical History Surgery Date Site/Laterality Comments CARPAL TUNNEL RELEASE PROCEDURE: DE NEUROPLASTY &/TRANSPOS MEDIAN NRV CARPAL TUNNE; COMMENT: bilateral TONSILLECTOMY PROCEDURE: HISTORICAL TONSILLECTOMY COLONOSCOPY 05/01/2018 PROCEDURE: OUTSIDE COLONOSCOPY; COMMENT: diminutive tubular adenoma polyp. random colonic bx normal. KNEE ARTHROSCOPY W/ MENISCAL REPAIR 12/11/2019 PROCEDURE: DE ARTHROSCOPY KNEE W/MENISCUS RPR MEDIAL/LATERAL; COMMENT: root repair; [facility] Medical History Medical History Date [...] obesity wit h BMI of 45.0-49.9, adult ([facility]) Tubular adenoma of colon 05/15/2018 DX:Tubu lar adenoma of colon Irritable bowel syndrome wit h diarrhea 08/05/2018 DX:Irritable bowel syndrome with diarrhea Moderate persistent asthma w ith acute exacerbation 01/05/2019 DX:Moderate persistent asthm a with acute exacerbation DM (diabetes mellitus), type 2 with renal complications ([facility] V24, [facility] V28) 04/29/2018 DX:DM (diabetes mellitus), t ype 2 with renal complications ([facility]) Family History Medical History Relation Name Comments [...] age to complete this topic Care Teams Plastic Injection Mold Maker Relationship Specialty Start Date End Date Nicola Spears MD [address] [place] [address] PCP - General Internal Medicine 10/27/21
== END 2025-05-31 09:14 | disposition home or self-care (01) ==
LOC: HO.HSMS 07:40
PROVIDERS: PCP Nurse Practitioner Family; Visit Provider Nurse Practitioner Family
DX: G43.709 Chronic migraine without aura, not intractable, without status migrainosus (principal); G44.019 Episodic cluster headache, not intractable; M54.2 Cervicalgia; G93.2 Benign intracranial hypertension; R42 Dizziness and giddiness; G93.5 Compression of brain; H53.2 Diplopia
CPT/HCPCS: 99214

== ENCOUNTER → 2025-05-31 07:40 | Outpatient (BNVA) | payer OTHER, SELFPAY | PROVIDERS: PCP Nurse Practitioner Family; Visit Provider Nurse Practitioner Family | DX: G43.709 Chronic migraine without aura, not intractable, without status migrainosus (principal); G44.019 Episodic cluster headache, not intractable; M54.2 Cervicalgia; G93.2 Benign intracranial hypertension; R42 Dizziness and giddiness; G93.5 Compression of brain; H53.2 Diplopia | CPT/HCPCS: 99212 ==

== ENCOUNTER 2025-06-08 12:51 | Outpatient (AMB) | payer OTHER, SELFPAY ==
[2025-06-08 12:55] VITALS: BP 130/78; PULSE 84; O2SAT 98; BMI 46.6
--- NOTE | 2025-06-08 12:55 | MHC.OFFVIS ---
Vital Signs 06/08/25 12:55 Height 4 ft 11 in Weight 230 lb 8 oz BMI 46.6 BP 130/78 Blood Pressure Location Rt brachial Position Sitting Pulse 84 Pulse Source Pulse Oximeter Pulse Oximetry (%) 98 Oxygen Delivery Method Room Air Intake Visit Reasons: Botox Intake Note: Botox Supervisor Dog License Officer Required: No Accompanied by: Self / Same As Patient Allergies Heparin Analogues (HEPARIN AGENTS) Allergy (Intermediate, Verified 06/08/25 12:55) HIVES, RASH, SEVERE BRUISING dulaglutide (From Trulicity) Allergy (Verified 06/08/25 12:55) Rash Medication List - Last Reconciled 06/08/25 by Guerline Fernandez MD acetazolamide ER 500 mg PO DAILY albuterol sulfate 2.5 mg (3 mL) inhalation Q4-6H PRN albuterol sulfate 90 mcg/actuation (Ventolin HFA) 2 puffs inhalation QID PRN alprazolam 0.25 - 0.5 mg orally 1 tab 30 minutes prior to MRI, may repeat dose x's 1 (max 4 tabs in 1 day); 1 day MDD 1 mg blood sugar diagnostic (FreeStyle Lite Strips) daily blood-glucose sensor (FreeStyle Zeynep 3 Sensor device) As directed canagliflozin (Invokana) 300 mg PO DAILY celecoxib (Celebrex) 100 mg PO Q12H 30 days cholecalciferol (vitamin D3) 1,250 mcg PO QWEEK clonidine HCl 0.3 mg PO BID dupilumab (Dupixent) 300 mg (2 mL) subcut Q2W famotidine (Pepcid) 20 mg PO BEDTIME 30 days fluticasone furoate-vilanterol 200-25 mcg/dose (Breo Ellipta) 1 inh inhalation DAILY galcanezumab-gnlm (Emgality) 300 mg (3 mL) subcut Q30D 30 days glyburide 10 mg (2 x 5 mg) PO BID insulin glargine (Lantus Solostar U-100 Insulin) 20 units (0.2 mL) subcut BID lidocaine HCl 2% (Lidocaine Viscous) 1 mL mucous membrane QID PRN 25 days magnesium L-threonate 48 mg PO DAILY metoclopramide HCl 5 - 10 mg (1 - 2 x 5 mg) PO Q4-6H 30 days MDD 4 tabs onabotulinumtoxinA (Botox) 200 units IM ONCE 12 weeks ondansetron 4 - 8 mg (1 - 2 x 4 mg) PO Q6-8H PRN 30 days oral dosing syringes 1 mL syringes without needle. To be used as directed with viscous lidocaine intranasal order. Oxygen Home Use Start home O2 at 15-25 L/min via non-rebreather facemask x's 15-20 minutes at onset of cluster headache attack. Patient will require both M tanks and E tanks. pen needle, diabetic (Ultra-Thin II Insulin Pen [place]) As directed riboflavin (vitamin B2) 400 mg PO DAILY 30 days rimegepant (Nurtec ODT) 75 mg PO Q OTHER DAY sertraline 50 mg PO DAILY thiamine HCl (vitamin B1) 50 mg (1/2 x 100 mg) PO DAILY HPI Comments Details: ? 44y/o female comes for treatment of migraines with botox. ??? Most frequent reported adverse reactions following injection of botox for chronic migraine include neck pain (9%), headache(5%), eyelid ptosis(4%), migraine(4%), muscular weakness(4%), musculuskeletal stiffness(4%), bronchitis(3%), injection site pain (3%), musculoskeletal pain(3%), myalgia(3%), facial paresis(2%), HTN(2%) and muscle spasms(2%) were discussed in detail. ??? Botulinum toxin typeA 200units Lot no [id number] expiration Jul 2027 was diluted with 4 cc of normal saline . ??? Muscles injected- ??? Frontalis 4 sites ??? Procerus 1 site ??? Rounding Machine Operator- 2 sites ??? Temporalis- 8 sites ??? Occipitalis- 6 sites ??? Cervical paraspinals- 4 sites ??? Trapezius- 6 sites- 10 units each ??? 5 units each in 31 site ??? Total use- 185units ??? Discarded-15units ON LICENSE OF [facility] Medical History GERD (gastroesophageal reflux disease) Pseudotumor cerebri Anxiety Depression Morbid obesity Asthma Sleep apnea Hypertension IBS (irritable bowel syndrome) DVT (deep venous thrombosis) COVID-19 Diabetes Surgical History [place] teeth extracted Hx of carpal tunnel repair Hx of tonsillectomy Hx of knee surgery Family History Maternal Grandfather Substance abuse Heart attack Maternal Grandmother Stomach cancer Father Diabetes Asthma Mother Asthma Social History Household Members: Family Housing: House Are you a primary companion caregiver to a significant other at home: No Do you presently have visiting nurse or other home services: No 75 years or older and lives alone: No Alcohol intake: current Alcohol intake frequency: holidays/special occasions only Patient Tobacco Use Status: Never used Tobacco e-Cigarette/Vaping Use: Never Used Advance Directives Date on File: 06/29/22 service: No Current occupational status: unemployed Cognitive needs: Yes Hearing needs: Yes Vision needs: Yes (wear glasses) Physical Exam Vital Signs: Last Vital Signs Pulse 84 06/08/25 12:55 BP 130/78 06/08/25 12:55 Pulse Ox 98 06/08/25 12:55 Oxygen Delivery Method Room Air 06/08/25 12:55 BMI result Body Mass Index 46.6 Const General: cooperative and no acute distress Orientation/consciousness: patient oriented x3 Resp Effort & Inspection: normal respiratory effort and able to speak in complete sentences Neuro General: patient oriented x3 and moves all extremities Cranial nerves: Yes CN's II-XII intact bilaterally Cognition (Neuro): normal cognition Psych Appearance: grossly normal Mental Status: mental status grossly normal Speech and movement: Normal speech and movement present Affect: normal affect Attitude: cooperative Office Procedures Botulinum toxin Injection 12104 - Migraine Procedure code (CPT) selection complete Office Meds onabotulinumtoxinA 200 unit solution for injection Performing Provider: Guerline Fernandez MD [place] [facility] Administered by: Guerline Fernandez MD on 06/08/25 13:27 Dose Route Admin Location Dispensed Lot Number Expiration Date [facility] [employer] 185 unit subcut 200 units [id number] [employer]/BOTOX Total Dispensed Waste 200 units 7.5 % Comments: see hpi Assessment & Plan Assessment & Plan (1) Chronic migraine without aura: Code(s): G43.709 - Chronic migraine without aura, not intractable, without status migrainosus Category: Medical Qualifiers: Status migrainosus presence: without status migrainosus Intractability: not intractable Qualified Code(s): G43.709 - Chronic migraine without aura, not intractable, without status migrainosus (2) Obstructive sleep apnea: Comment: should be on CPAP but cannot tolerate Code(s): G47.33 - Obstructive sleep apnea (adult) (pediatric) Category: Medical Plan Patient tolerated the procedure well she will call with any side effects Orders: Orders AMB Botulinum toxin Injection Today G43.709 - Chronic migraine without aura, not intractable, without status migrainosus Coding Level of Care Code Est Pt Level 1 (29696) Diagnoses Chronic migraine without aura without status migrainosus, not intractable G43.709 Status migrainosus presence: without status migrainosus Intractability: not intractable Obstructive sleep apnea G47.33 CPT Codes Botox Injection - Botox 3: 67848 - Migraine ([id number])
--- OUTSIDE RECORDS SUMMARY | 2025-06-08 14:00 | XMS_ITS | Clinical Summary ---
Author Organization [facility] Address [address] [address] Phone Care Team Providers Care Asp Web Developer Name Role Phone Salvador Marcus MD Unavailable [phone] Jonna Bolaños MD Primary Care Provider [phone] Allergies Active Allergy Reactions Criticality Noted Date [...] topic Medical Devices Not on file Insurance [facility] [place] [address] [place] [address] [place] [address] [place] [address] ACO [facility]CO [facility] [place] [address] [place] [address] ACO Care Teams Asp Web Developer Relationship Specialty Start Date End Date Jonna Bolaños MD [address] [place] [phone] PCP - General Internal Medicine 08/05/23 Salvador Marcus MD [address] [place] [address] [email or web address] Historical LMR Provider 08/06/17 Additional Source Comments The information contained in this document represents components of the legal health record. It is not the complete legal health record.[facility]
--- OUTSIDE RECORDS SUMMARY | 2025-06-08 14:01 | XMS_ITS | Clinical Summary ---
Author Organization [facility] ity Address [address] [place] [address] Care Team Providers Care Business Loan Processor Name Role Phone Nicola Spears MD Primary Care Provider Surgical History Surgery Date Site/Laterality Comments CARPAL TUNNEL RELEASE PROCEDURE: [place] NEUROPLASTY &/TRANSPOS MEDIAN NRV CARPAL TUNNE; COMMENT: bilateral TONSILLECTOMY PROCEDURE: HISTORICAL TONSILLECTOMY COLONOSCOPY 05/01/2018 PROCEDURE: OUTSIDE COLONOSCOPY; COMMENT: diminutive tubular adenoma polyp. random colonic bx normal. KNEE ARTHROSCOPY W/ MENISCAL REPAIR 12/11/2019 PROCEDURE: [place] ARTHROSCOPY KNEE W/MENISCUS RPR MEDIAL/LATERAL; COMMENT: root [...] BMI of 45.0-49.9, adult ([facility]) Tubular adenoma of colon 05/15/2018 DX:Tubu lar adenoma of colon Irritable bowel syndrome wit h diarrhea 08/05/2018 DX:Irritable bowel syndrome with diarrhea Moderate persistent asthma w ith acute exacerbation 01/05/2019 DX:Moderate persistent asthm a with acute exacerbation DM (diabetes mellitus), type 2 with renal complications ([facility]/HCC V24, [facility]/HCC V28) 04/29/2018 DX:DM (diabetes mellitus), t ype 2 with renal complications ([facility]) Family History Medical History Relation Name [...] age to complete this topic Care Teams Business Loan Processor Relationship Specialty Start Date End Date Nicola Separs MD [address] [place] [address] PCP - General Internal Medicine 10/27/21
== END 2025-06-08 13:20 | disposition home or self-care (01) ==
LOC: HO.HSMS 12:51
PROVIDERS: PCP Nurse Practitioner Family; Visit Provider Psychiatry & Neurology Neurology
DX: G43.709 Chronic migraine without aura, not intractable, without status migrainosus (principal); G47.33 Obstructive sleep apnea (adult) (pediatric)
CPT/HCPCS: 64615

== ENCOUNTER → 2025-06-08 12:51 | Outpatient (BNVA) | payer OTHER, SELFPAY | PROVIDERS: PCP Nurse Practitioner Family; Visit Provider Psychiatry & Neurology Neurology | DX: G43.709 Chronic migraine without aura, not intractable, without status migrainosus (principal) | CPT/HCPCS: 64615; 99211; J0585 ==

== ENCOUNTER 2025-06-15 08:59 | Outpatient (AMB) | payer OTHER, SELFPAY ==
--- NOTE | 2025-06-15 09:04 | A.OFFVIS_ITS ---
Vital Signs 06/15/25 09:06 Height 4 ft 11 in Weight 225 lb BMI 45.4 BP 137/76 Pulse 80 Intake Visit Reasons: OV-MRI Knee RT Review Intake Note: Susan is a 44 year old female who presents today as a MRI review for her right Knee,05/17/25. At today's visit she states that the right knee feels tender and sore. She reports intermittent locking in her right knee. She states that her symptoms are tolerable to her at this time. She did undergo right knee surgery in [place], [place] approximately 5 years ago. Allergies Heparin Analogues (HEPARIN AGENTS) Allergy (Intermediate, Verified 06/15/25 09:05) HIVES, RASH, SEVERE BRUISING dulaglutide (From Trulicity) Allergy (Verified 06/15/25 09:05) Rash Medication List - Last Reconciled 06/15/25 by Steve Barrientos MD acetazolamide ER 500 mg PO DAILY albuterol sulfate 2.5 mg (3 mL) inhalation Q4-6H PRN albuterol sulfate 90 mcg/actuation (Ventolin HFA) 2 puffs inhalation QID PRN alprazolam 0.25 - 0.5 mg orally 1 tab 30 minutes prior to MRI, may repeat dose x's 1 (max 4 tabs in 1 day); 1 day MDD 1 mg blood sugar diagnostic (FreeStyle Lite Strips) daily blood-glucose sensor (FreeStyle Zeynep 3 Sensor device) As directed canagliflozin (Invokana) 300 mg PO DAILY celecoxib (Celebrex) 100 mg PO Q12H 30 days cholecalciferol (vitamin D3) 1,250 mcg PO QWEEK clonidine HCl 0.3 mg PO BID dupilumab (Dupixent) 300 mg (2 mL) subcut Q2W famotidine (Pepcid) 20 mg PO BEDTIME 30 days fluticasone furoate-vilanterol 200-25 mcg/dose (Breo Ellipta) 1 inh inhalation DAILY galcanezumab-gnlm (Emgality) 300 mg (3 mL) subcut Q30D 30 days glyburide 10 mg (2 x 5 mg) PO BID insulin glargine (Lantus Solostar U-100 Insulin) 20 units (0.2 mL) subcut BID lidocaine HCl 2% (Lidocaine Viscous) 1 mL mucous membrane QID PRN 25 days magnesium L-threonate 48 mg PO DAILY metoclopramide HCl 5 - 10 mg (1 - 2 x 5 mg) PO Q4-6H 30 days MDD 4 tabs onabotulinumtoxinA (Botox) 200 units IM ONCE 12 weeks ondansetron 4 - 8 mg (1 - 2 x 4 mg) PO Q6-8H PRN 30 days oral dosing syringes 1 mL syringes without needle. To be used as directed with viscous lidocaine intranasal order. Oxygen Home Use Start home O2 at 15-25 L/min via non-rebreather facemask x's 15- 20 minutes at onset of cluster headache attack. Patient will require both M tanks and E tanks. pen needle, diabetic (Ultra-Thin II Insulin Pen [place]) As directed riboflavin (vitamin B2) 400 mg PO DAILY 30 days rimegepant (Nurtec ODT) 75 mg PO Q OTHER DAY sertraline 50 mg PO DAILY thiamine HCl (vitamin B1) 50 mg (1/2 x 100 mg) PO DAILY PFSH Medical History GERD (gastroesophageal reflux disease) Pseudotumor cerebri Anxiety Depression Morbid obesity Asthma Sleep apnea Hypertension IBS (irritable bowel syndrome) DVT (deep venous thrombosis) COVID-19 Diabetes Surgical History [place] teeth extracted Hx of carpal tunnel repair Hx of tonsillectomy Hx of knee surgery Family History Maternal Grandfather Substance abuse Heart attack Maternal Grandmother Stomach cancer Father Diabetes Asthma Mother Asthma Social History Household Members: Family Housing: House Are you a primary health care technician to a significant other at home: No Do you presently have visiting nurse or other home services: No 75 years or older and lives alone: No Alcohol intake: current Alcohol intake frequency: holidays/special occasions only Patient Tobacco Use Status: Never used Tobacco e-Cigarette/Vaping Use: Never Used Advance Directives Date on File: 06/29/22 service: No Current occupational status: unemployed Cognitive needs: Yes Hearing needs: Yes Vision needs: Yes (wear glasses) Physical Exam Vital Signs: Last Vital Signs Pulse 80 06/15/25 09:06 BP 137/76 06/15/25 09:06 BMI result Body Mass Index 45.4 Const Other: Well-nourished well-developed very friendly female awake alert and oriented x3 in no acute distress Extrem Other: Right knee examination shows a minimal effusion, mild crepitus with range motion, tenderness along her medial joint line, positive Clifford's test, no instability Results Reviewed Results Reviewed: MRI of the patient's right knee shows mild diffuse degenerative changes as well as a tear of the medial meniscus Assessment & Plan Assessment & Plan (1) Tear of medial meniscus of right knee: Code(s): S83.241A - Other tear of medial meniscus, current injury, right knee, initial encounter Category: Medical Plan Ms. Escobedo presents with intermittent right knee discomfort and mechanical symptoms due to a medial meniscus tear. I had a lengthy discussion with the patient regarding the treatment options. At this point the patient's symptoms are tolerable to her. She will continue with her activity modifications. She will follow up with me on an as-needed basis should her symptoms worsen in any way. I spent 20 minutes in reviewing the patient's records and imaging studies, seeing the patient and documenting in the medical record. Coding Level of Care Code Est Pt Level 3 (73077) Complex EM visit Add On G2211 Diagnoses Tear of medial meniscus of right knee S83.241A
[2025-06-15 09:06] VITALS: BP 137/76; PULSE 80; BMI 45.4
--- OUTSIDE RECORDS SUMMARY | 2025-06-15 09:19 | XMS_ITS | Clinical Summary ---
Author Organization [facility] ity Address [address] [place] [address] Care Team Providers Care Special Weapons And Tactics Officer Name Role Phone Nicola Spears MD Primary Care Provider [phone] Surgical History Surgery Date Site/Laterality Comments CARPAL TUNNEL RELEASE PROCEDURE: [place] NEUROPLASTY &/TRANSPOS MEDIAN NRV CARPAL TUNNE; COMMENT: bilateral TONSILLECTOMY PROCEDURE: HISTORICAL TONSILLECTOMY COLONOSCOPY 05/01/2018 PROCEDURE: OUTSIDE COLONOSCOPY; COMMENT: diminutive tubular adenoma polyp. random colonic bx normal. KNEE ARTHROSCOPY W/ MENISCAL REPAIR 12/11/2019 PROCEDURE: [place] ARTHROSCOPY KNEE W/MENISCUS RPR MEDIAL/LATERAL; COMMENT: root repair; [facility] Medical History Medical History Date [...] (diabetes mellitus), type 2 with renal complications ([facility]/HCC V24, [facility] V28) 04/29/2018 DX:DM (diabetes mellitus), t [...] age to complete this topic Care Teams Special Weapons And Tactics Officer Relationship Specialty Start Date End Date Nicola Spears MD [address] [place] [address] PCP - General Internal Medicine 10/27/21
--- OUTSIDE RECORDS SUMMARY | 2025-06-15 09:19 | XMS_ITS | Clinical Summary ---
Author Organization [facility] Address [address] [place] [phone] Phone Care Team Providers Care Instructional Services Librarian Name Role Phone Salvador Marcus MD Unavailable [phone] Jonna Bolaños MD Primary Care Provider [phone] Allergies Active Allergy Reactions Criticality Noted Date [...] topic Medical Devices Not on file Insurance [facility] [place] [address] [place] [address] [place] [address] [place] [address] ACO [facility] [place] [address] [place] [address] ACO Care Teams Instructional Services Librarian Relationship Specialty Start Date End Date Jonna Bolaños MD [address] [place] [phone] PCP - General Internal Medicine 08/05/23 Salvador Marcus MD [address] [place] [id number] [email or web address] Historical LMR Provider 08/06/17 Additional Source Comments The information contained in this document represents components of the legal health record. It is not the complete legal health record.[facility]
== END 2025-06-15 09:37 | disposition home or self-care (01) ==
LOC: HO.HOS 09:00
PROVIDERS: Visit Provider Orthopaedic Surgery
DX: S83.241A Other tear of medial meniscus, current injury, right knee, initial encounter (principal)
CPT/HCPCS: 99213

== ENCOUNTER → 2025-06-15 08:59 | Outpatient (BNVA) | payer OTHER, SELFPAY | PROVIDERS: Visit Provider Orthopaedic Surgery | DX: S83.241A Other tear of medial meniscus, current injury, right knee, initial encounter (principal); X58.XXXA Exposure to other specified factors, initial encounter; Y93.9 Activity, unspecified; Y92.9 Unspecified place or not applicable; Y99.9 Unspecified external cause status | CPT/HCPCS: 99212 ==

== ENCOUNTER 2025-06-29 13:46 | Outpatient (AMB) | payer OTHER, SELFPAY ==
[2025-06-29 14:00] VITALS: BP 144/64; PULSE 90; O2SAT 99; BMI 46.2
--- NOTE | 2025-06-29 14:00 | A.OFFVIS_ITS ---
Vital Signs 06/29/25 14:00 Height 4 ft 11 in Weight 229 lb BMI 46.2 BP 144/64 H Blood Pressure Location Rt brachial Position Sitting Pulse 90 Pulse Source Pulse Oximeter Pulse Oximetry (%) 99 Oxygen Delivery Method Room Air Intake Visit Reasons: [place] screening, initial. R/S x1 Intake Note: New pt for recall colo screening. FMHx stomach cancer. Pt had one previously via [facility] ~ 7 years ago. Was supposed to have 5 year recall. CC; C.O. GERD, new onset within the last few months. Pt states that it had started around the time she had been taking mounjaro. Pt states, despite stopping mounjaro, she is still experiencing progressively worsening GERD. Pt takes occasional famotidine and another medication OTC which she cannot remember the name of. Pt also reports recent exposure to H Pylori via her sister who is living in her household. Resource Teacher Required: No Accompanied by: Self / Same As Patient Allergies Heparin Analogues (HEPARIN AGENTS) Allergy (Intermediate, Verified 07/07/25 08:22) HIVES, RASH, SEVERE BRUISING dulaglutide (From Trulicity) Allergy (Verified 07/07/25 08:22) Rash HPI HPI [place] screening, initial. R/S x1: Details: 45 year old? female with past medical history of diabetes, GERD, anxiety, depression, DVT, morbid obesity, diplopia, cervical spondylosis, GERD, MDD, severe persistent asthma, RACHAEL, Chiari 1 malformation, positional headache is here today for pre colonoscopy screening.? Patient was sent to us by her PCP.? Last colonoscopy in 2018, was told that she should follow-up in 5 years. Patient reports stopping when GR about couple months ago due to epigastric pain and acid reflux. Patient reports that she still has acid reflux. She takes famotidine as needed and another [id number] medication..? Denies any family history of CRC.? Denies history of difficulty with sedation or anesthesia in the past.? History of sleep apnea not using CPAP.? Denies any history of cardiac, renal, pulmonary, or hepatic disease.?? No history of infectious? diseases like hepatitis A, B, C, HIV or tuberculosis.? Patient is not on any anticoagulation [facility] Medical History GERD (gastroesophageal reflux disease) Pseudotumor cerebri Anxiety Depression Morbid obesity Asthma Sleep apnea Hypertension IBS (irritable bowel syndrome) DVT (deep venous thrombosis) COVID-19 Diabetes Surgical History H/O colonoscopy [place] teeth extracted Hx of carpal tunnel repair Hx of tonsillectomy Hx of knee surgery Family History Maternal Grandfather Substance abuse Heart attack Maternal Grandmother Stomach cancer Father Diabetes Asthma Mother Asthma Social History Household Members: Family Housing: House Are you a primary wild animal caretaker to a significant other at home: No Do you presently have visiting nurse or other home services: No 75 years or older and lives alone: No Alcohol intake: current Alcohol intake frequency: does not drink Patient Tobacco Use Status: Never used Tobacco e-Cigarette/Vaping Use: Never Used Second Hand Smoke Exposure: No Advance Directives Date on File: 06/29/22 service: No Current occupational status: unemployed Cognitive needs: Yes Hearing needs: Yes Vision needs: Yes (wear glasses) Physical Exam Vital Signs: Last Vital Signs Pulse 90 06/29/25 14:00 BP 144/64 H 06/29/25 14:00 Pulse Ox 99 06/29/25 14:00 Oxygen Delivery Method Room Air 06/29/25 14:00 BMI result Body Mass Index 46.2 Const General: no acute distress and alert Nutritional Appearance: obese Orientation/consciousness: Other orientation findings ( oriented) Resp Effort & Inspection: normal respiratory effort and no use of accessory muscles Auscultation: clear to auscultation bilaterally Cardio Rhythm: regular rhythm Skin General skin exam: other ( warm) Extrem General: No clubbing, No cyanosis and No edema Psych Appearance: grossly normal Mental Status: mental status grossly normal Assessment & Plan Assessment & Plan (1) GERD (gastroesophageal reflux disease): Code(s): K21.9 - Gastro-esophageal reflux disease without esophagitis Category: Medical Qualifiers: Esophagitis presence: esophagitis presence not specified Qualified Code(s): K21.9 - Gastro-esophageal reflux disease without esophagitis (2) Screen for colon cancer: Code(s): Z12.11 - Encounter for screening for malignant neoplasm of colon (3) Postprandial epigastric pain: Code(s): R10.13 - Epigastric pain (4) Postprandial abdominal bloating: Code(s): R14.0 - Abdominal distension (gaseous) Plan Patient denies any cardiac or respiratory symptoms.? Patient reports acid reflux since she started Mounjaro. Currently she is not taking it. Symptoms continue. Patient denies eating late at night. Patient can continue taking famotidine. If her symptoms will continue despite dietary modification patient is to call the office and we can put her on PPI. In the meantime patient will be sent for up upper endoscopy me and upper GI series with barium swallow. Denies any issues with anesthesia in the past.? History of sleep apnea not using CPAP. Patient reports that it is not comfortable for her.? No history infectious diseases in the past or present.? Not on any anticoagulation therapy.? No family history of CRC.? Patient denies melena, hematochezia, unintentional weight loss or ribbon like stools.? Discussed at length the pre-procedure,? prep, diet & medications as well as what to expect prior, during and after the procedure.?? Stressed the importance of good bowel prep.? Recommended the use of Vaseline or Calmoseptine OTC & baby wipes with bowel movements to promote comfort.? ?Patient verbalizes understanding and agrees to plan of care.? She was given the opportunity to ask questions and all questions answered.? We will see her after the procedure.? Orders: Orders [place] upper GI w air w Ba Swallow 06/29/25 K21.9 - Gastro-esophageal reflux disease without esophagitis Medications: New bisacodyl (Dulcolax (bisacodyl)) Start taking 2 tablet every night 7 days before the procedure and 1 day before procedure take 4 tablets at noon time followed by MiraLax prep 10 mg (2 x 5 mg) PO BEDTIME 16 tabs 0RF G93.5 - Compression of brain, Z12.11 - Encounter for screening for malignant neoplasm of colon polyethylene glycol 3350 (Miralax) As directed by gastro[facility]ology department at [facility] 238 grams PO ONCE 238 grams 0RF G93.5 - Compression of brain, Z12.11 - Encounter for screening for malignant neoplasm of colon Coding Level of Care Code New Pt Level 4 (70817) Diagnoses Gastroesophageal reflux disease, unspecified whether esophagitis present K21.9 Esophagitis presence: esophagitis presence not specified Screen for colon cancer Z12.11 Postprandial epigastric pain R10.13 Postprandial abdominal bloating R14.0 Time Spent (min) 45 Comment 35 minutes spent with patient and additional 10 minutes spent reviewing her records
--- OUTSIDE RECORDS SUMMARY | 2025-06-29 16:29 | XMS_ITS | Encounter Summary ---
[facility] Organization [facility] Address [address] [place] [address] Care Team Providers Care Tree Tapping Laborer Name Role Phone Jonna Carvalho MD Primary Care Provider Nicola Soni MD Primary Care Provider Carl Chapa, Pcp Primary Care Provider Jayson jauregui Encounter Details Date Type Department Care Team Description 09/23/2019 Old Medical Records Medical Records [address] [place] [address] Abstract, Provider Social History Tobacco Use Types [...] on filedocumented in this encounter Care Teams Tree Tapping Laborer Relationship Specialty Start Date End Date Jonna Carvalho MD PCP - General Internal Medicine 03/31/18 10/26/21 Nicola Spears MD PCP - General Internal Medicine 10/27/21 07/09/23 [facility], Pcp PCP - General Internal Medicine 07/10/23 documented as of this encounter
--- OUTSIDE RECORDS SUMMARY | 2025-06-29 16:29 | XMS_ITS | Encounter Summary ---
[facility] Address [address] [place] [address] Care Team Providers Care Tape Cutter Name Role Phone Jonna Carvalho MD Primary Care Provider Nicola Soni MD Primary Care Provider Carl Chapa, Pcp Primary Care Provider Unavailabl e Reason for Visit * Reason Comments E-prescribe Rx Request Encounter Details Date Type Department Care Team Description 01/23/2020 Refill Adult Medicine [address] [address] Jonna Carvalho MD E-prescribe Rx Request Social [...] N/A Patients current insurance carrier is: Payor: [employer] [facility] / Plan: PPO $[address] [place] [id number] / Product Type: PPO [id number] documented in this encounter Plan of Treatment Not on file documented as of this encounter Visit Diagnoses Not on filedocumented in this encounter Care Teams Tape Cutter Relationship Specialty Start Date End Date Jonna Carvalho MD PCP - General Internal Medicine 03/31/18 10/26/21 Nicola Spears MD PCP - General Internal Medicine 10/27/21 07/09/23 [facility], Pcp PCP - General Internal Medicine 07/10/23 documented as of this encounter
--- OUTSIDE RECORDS SUMMARY | 2025-06-29 16:29 | XMS_ITS | Clinical Summary ---
Author Organization [facility] Address [address] [place] [address] Care Team Providers Care Card Doffer Name Role Phone Nicola Spears MD Primary Care Provider [phone] Surgical History Surgery Date Site/Laterality Comments CARPAL TUNNEL RELEASE PROCEDURE: TX NEUROPLASTY &/TRANSPOS MEDIAN NRV CARPAL TUNNE; COMMENT: bilateral TONSILLECTOMY PROCEDURE: HISTORICAL TONSILLECTOMY COLONOSCOPY 05/01/2018 PROCEDURE: OUTSIDE COLONOSCOPY; COMMENT: diminutive tubular adenoma polyp. random colonic bx normal. KNEE ARTHROSCOPY W/ MENISCAL REPAIR 12/11/2019 PROCEDURE: TX ARTHROSCOPY KNEE W/MENISCUS RPR MEDIAL/LATERAL; COMMENT: root repair; [facility] Medical History Medical History Date Comments [...] h BMI of 45.0-49.9, adult ([facility]) Tubular adenoma of colon 05/15/2018 DX:Tubu lar adenoma of colon Irritable bowel syndrome wit h diarrhea 08/05/2018 DX:Irritable bowel syndrome with diarrhea Moderate persistent asthma w ith acute exacerbation 01/05/2019 DX:Moderate persistent asthm a with acute exacerbation DM (diabetes mellitus), type 2 with renal complications ([facility] V24, [facility] V28) 04/29/2018 DX:DM (diabetes mellitus), t ype 2 with renal complications ([facility]) Family History Medical History Relation Name Comments [...] 06/15/2024 Social Influencers of Health Screening 06/15/2024 Depression Screening 10/21/2024 COVID-19 Vaccine (1 - 2023-2 5 season) 2025 Influenza Vaccine (#1) 2025 DTaP,Tdap,and Td Vaccines [...] age to complete this topic Care Teams Card Doffer Relationship Specialty Start Date End Date Nicola Spears MD [address] [place] [address] PCP - General Internal Medicine 10/27/21
--- OUTSIDE RECORDS SUMMARY | 2025-06-29 16:29 | XMS_ITS | Encounter Summary ---
Author Organization [facility] Address [address] [place] [address] Care Team Providers Care Sccm Administrator Name Role Phone Jonna Carvalho MD Primary Care Provider Nicola Soni MD Primary Care Provider Carl Chapa, Pcp Primary Care Provider Jayson jauregui Encounter Details Date Type Department Care Team Description 01/06/2020 Telephone Pulmonology - [place] [address] [facility] [address] [place] [address] Alli Santacruz MD [address] [facility] [address] [place] [address] Social History Tobacco Use Types [...] on filedocumented in this encounter Care Teams Sccm Administrator Relationship Specialty Start Date End Date Jonna Carvalho MD PCP - General Internal Medicine 03/31/18 10/26/21 Nicola Spears MD PCP - General Internal Medicine 10/27/21 07/09/23 [facility], Pcp PCP - General Internal Medicine 07/10/23 documented as of this encounter
--- OUTSIDE RECORDS SUMMARY | 2025-06-29 16:29 | XMS_ITS | Encounter Summary ---
[facility] Address [address] [place] [address] Care Team Providers Care Diesel Service Apprentice Name Role Phone Jonna Carvalho MD Primary Care Provider Nicola Soni MD Primary Care Provider Carl Chapa, Pcp Primary Care Provider Jayson jauregui Encounter Details Date Type Department Care Team Description 09/22/2019 Old Medical Records Medical Records [address] [place] [address] Abstract, Provider Social History Tobacco Use Types [...] on filedocumented in this encounter Care Teams Diesel Service Apprentice Relationship Specialty Start Date End Date Jonna Carvalho MD PCP - General Internal Medicine 03/31/18 10/26/21 Nicola Spears MD PCP - General Internal Medicine 10/27/21 07/09/23 [facility], Pcp PCP - General Internal Medicine 07/10/23 documented as of this encounter
--- OUTSIDE RECORDS SUMMARY | 2025-06-29 16:29 | XMS_ITS | Encounter Summary ---
Author Organization [facility] Address [address] [place] [address] Care Team Providers Care Metal Rolling Mill Operator Name Role Phone Jonna Carvalho MD Primary Care Provider Nicola Soni MD Primary Care Provider Carl Chapa, Pcp Primary Care Provider [facility] Reason for Visit * Reason Onset Date Comments refill request 01/09/2019 Encounter Details Date Type Department Care Team Description 01/09/2019 Refill Adult Medicine [address] [address] Jonna Carvalho MD refill request Social History [...] MED LIST AND IS IDENTIFIED BELOW): {MED LIST:14770) Med name: Freestyle Zeynep Meter Dosage: # of tablets: Local pharmacy with request for 30 -day supply Instructions: Did you check the pharmacy information above?: YES Patients current insurance carrier: Payor: [employer] / Plan: PPO $20 [employer] [id number] / Product Type: PPO [id number] documented in this encounter Plan of Treatment Not on file documented as of this encounter Visit Diagnoses Not on filedocumented in this encounter Care Teams Metal Rolling Mill Operator Relationship Specialty Start Date End Date Jonna Carvalho MD PCP - General Internal Medicine 03/31/18 10/26/21 Nicola Spears MD PCP - General Internal Medicine 10/27/21 07/09/23 [facility], Pcp PCP - General Internal Medicine 07/10/23 documented as of this encounter
--- OUTSIDE RECORDS SUMMARY | 2025-06-29 16:29 | XMS_ITS | Encounter Summary ---
Author Organization [facility] Address [address] [place] [address] Care Team Providers Care Sole Rougher Name Role Phone Jonna Carvalho MD Primary Care Provider Nicola Soni MD Primary Care Provider Carl Chapa, Pcp Primary Care Provider Jayson jauregui Encounter Details Date Type Department Care Team Description 04/11/2020 Orders Only Adult Medicine [address] [address] Preeti Xiong, Type 2 diabetes mellitus without [...] Bunion documented in this encounter Care Teams Sole Rougher Relationship Specialty Start Date End Date Jonna Carvalho MD PCP - General Internal Medicine 03/31/18 10/26/21 Nicola Spears MD PCP - General Internal Medicine 10/27/21 07/09/23 [facility], Pcp PCP - General Internal Medicine 07/10/23 documented as of this encounter
--- OUTSIDE RECORDS SUMMARY | 2025-06-29 16:29 | XMS_ITS | Encounter Summary ---
Author Organization [facility] Address [address] [place] [address] Care Team Providers Care Linen Aide Name Role Phone Jonna Carvalho MD Primary Care Provider Nicola Soni MD Primary Care Provider Carl Chapa, Pcp Primary Care Provider Jayson jauregui Encounter Details Date Type Department Care Team Description 12/29/2019 Rn Internship Report Medical Records [address] [place] [address] Abstract, Provider Social History Tobacco Use Types [...] on filedocumented in this encounter Care Teams Linen Aide Relationship Specialty Start Date End Date Jonna Carvalho MD PCP - General Internal Medicine 03/31/18 10/26/21 Nicola Spears MD PCP - General Internal Medicine 10/27/21 07/09/23 [facility], Pcp PCP - General Internal Medicine 07/10/23 documented as of this encounter
--- OUTSIDE RECORDS SUMMARY | 2025-06-29 16:30 | XMS_ITS | Encounter Summary ---
Author Organization [facility] Address [address] [place] [address] Care Team Providers Care Locksmith Apprentice Name Role Phone Jonna Carvalho MD Primary Care Provider Nicola Soni MD Primary Care Provider Carl Chapa, Pcp Primary Care Provider Jayson jauregui Encounter Details Date Type Department Care Team Description 04/08/2018 Release of Information Medical Records [address] [place] [id number] Abstract, Provider Social History Tobacco Use Types [...] on filedocumented in this encounter Care Teams Locksmith Apprentice Relationship Specialty Start Date End Date Jonna Carvalho MD PCP - General Internal Medicine 03/31/18 10/26/21 Nicola Spears MD PCP - General Internal Medicine 10/27/21 07/09/23 Sigrid Chapa PCP - General Internal Medicine 07/10/23 documented as of this encounter
--- OUTSIDE RECORDS SUMMARY | 2025-06-29 16:30 | XMS_ITS | Clinical Summary ---
Author Organization [facility] Address [address] [address] Phone Care Team Providers Care Corrections Corporal Name Role Phone Salvador Marcus MD Unavailable [phone] Jonna Bolaños MD Primary Care Provider [phone] Allergies Active Allergy Reactions Criticality Noted Date [...] you interested in more education? Not on rtichie e 02/15/2023 Are you concerned about learning? [...] 2001 SCREENING FOR DIABETES 2015 MAMMOGRAM 2020 INFLUENZA VACCINE (#1) 2025 4, 07/24/2014, 06/26/2013 COVID-19 VACCINE (3 2024-2 6 season) 2025 05/24/2021, 04/26/2021 Adult Td,Tdap Booster 04/29/2028 04/29/2018 [...] topic Medical Devices Not on file Insurance [facility] [place] [address] [place] [address] [place] [address] [place] [address] [place] [address] [address] [facility] [place] [address] [address] [place] [address] ACO Care Teams Corrections Corporal Relationship Specialty Start Date End Date Jonna Bolaños MD [address] [place] [id number] PCP - General Internal Medicine 08/05/23 Salvador Marcus MD [address] [place] [id number] [email or web address] Historical LMR Provider 08/06/17 Additional Source Comments The information contained in this document represents components of the legal health record. It is not the complete legal health record.[facility]
--- OUTSIDE RECORDS SUMMARY | 2025-06-29 16:30 | XMS_ITS | Encounter Summary ---
Author Organization [facility] Address [address] [place] [address] Care Team Providers Care Hydraulic Plumber Name Role Phone Nicola Spears MD Primary Care Provider Carl Chapa, Pcp Primary Care Provider Jayson jauregui Encounter Details Date Type Department Care Team Description 07/03/2022 Hospital Medical Records [address] [place] [address] Shante Upton NP Social History Tobacco Use [...] on filedocumented in this encounter Care Teams Hydraulic Plumber Relationship Specialty Start Date End Date Nicola Spears MD PCP - General Internal Medicine 10/27/21 07/09/23 Sammi Pcp PCP - General Internal Medicine 07/10/23 documented as of this encounter
--- OUTSIDE RECORDS SUMMARY | 2025-06-29 16:30 | XMS_ITS | Encounter Summary ---
Author Organization [facility] Address [address] [place] [address] Care Team Providers Care Specialty Finishing Utility Person Name Role Phone Jonna Carvalho MD Primary Care Provider Nicola Soin MD Primary Care Provider Carl Chapa, Pcp Primary Care Provider Jayson jauregui Encounter Details Date Type Department Care Team Description 08/25/2020 Telephone Adult Medicine [address] [address] Jonna Carvalho MD Social History Tobacco Use [...] on filedocumented in this encounter Care Teams Specialty Finishing Utility Person Relationship Specialty Start Date End Date Jonna Carvalho MD PCP - General Internal Medicine 03/31/18 10/26/21 iNcola Spears MD PCP - General Internal Medicine 10/27/21 07/09/23 [facility], Sigrid PCP - General Internal Medicine 07/10/23 documented as of this encounter
--- OUTSIDE RECORDS SUMMARY | 2025-06-29 16:30 | XMS_ITS | Encounter Summary ---
Author Organization [facility] Address [address] [place] [address] Care Team Providers Care Internal Medicine Doctor Name Role Phone Jomar Carvalho MD Primary Care Provider Nicola Soni MD Primary Care Provider Carl Chapa, Pcp Primary Care Provider [facility] Reason for Visit * Reason Onset Date Comments Orders Call 04/21/2018 Encounter Details Date Type Department Care Team Description 04/21/2018 Telephone Adult Medicine [address] [address] Jomar Carvalho MD Orders Call Social History [...] left for patient to return my call. [id number] * Telephone Encounter - Jomar Carvalho MD [...] on filedocumented in this encounter Care Teams Internal Medicine Doctor Relationship Specialty Start Date End Date Jomar Carvalho MD PCP - General Internal Medicine 03/31/18 10/26/21 Nicola Spears MD PCP - General Internal Medicine 10/27/21 07/09/23 [facility], Pcp PCP - General Internal Medicine 07/10/23 documented as of this encounter
== END 2025-06-29 14:48 | disposition home or self-care (01) ==
LOC: HO.HGI 13:47
PROVIDERS: PCP Nurse Practitioner Family; Visit Provider Nurse Practitioner Family
DX: Z01.818 Encounter for other preprocedural examination (principal); Z12.11 Encounter for screening for malignant neoplasm of colon; K21.9 Gastro-esophageal reflux disease without esophagitis; R10.13 Epigastric pain; R14.0 Abdominal distension (gaseous)
CPT/HCPCS: 99204

== ENCOUNTER → 2025-06-29 13:46 | Outpatient (BNVA) | payer OTHER, SELFPAY | PROVIDERS: PCP Nurse Practitioner Family; Visit Provider Nurse Practitioner Family | DX: K21.9 Gastro-esophageal reflux disease without esophagitis (principal); Z12.11 Encounter for screening for malignant neoplasm of colon; R10.13 Epigastric pain; R14.0 Abdominal distension (gaseous); E66.01 Morbid (severe) obesity due to excess calories; Z68.42 Body mass index [BMI] 45.0-49.9, adult | CPT/HCPCS: 43999; 99202 ==

== ENCOUNTER 2025-07-01 08:59 | Day surgery (SDC) | payer OTHER, SELFPAY ==
--- OUTSIDE RECORDS SUMMARY | 2025-06-07 12:13 | XMS_ITS | Clinical Summary ---
Author Organization [employer] [facility] ity Address [address] [place] [address] Care Team Providers Care Crime Data Specialist Name Role Phone Nicola Spears MD Primary Care Provider [phone] Surgical History Surgery Date Site/Laterality Comments CARPAL TUNNEL RELEASE PROCEDURE: [place] NEUROPLASTY &/TRANSPOS MEDIAN NRV CARPAL TUNNE; COMMENT: bilateral TONSILLECTOMY PROCEDURE: HISTORICAL TONSILLECTOMY COLONOSCOPY 05/01/2018 PROCEDURE: OUTSIDE COLONOSCOPY; COMMENT: diminutive tubular adenoma polyp. random colonic bx normal. KNEE ARTHROSCOPY W/ MENISCAL REPAIR 12/11/2019 PROCEDURE: [place] ARTHROSCOPY KNEE W/MENISCUS RPR MEDIAL/LATERAL; COMMENT: root repair; [facility] Medical History Medical History Date [...] obesity wit h BMI of 45.0-49.9, adult ([facility]) Tubular adenoma of colon 05/15/2018 DX:Tubu lar adenoma of colon Irritable bowel syndrome wit h diarrhea 08/05/2018 DX:Irritable bowel syndrome with diarrhea Moderate persistent asthma w ith acute exacerbation 01/05/2019 DX:Moderate persistent asthm a with acute exacerbation DM (diabetes mellitus), type 2 with renal complications ([facility]/HCC V24, [facility]/HCC V28) 04/29/2018 DX:DM (diabetes mellitus), t ype 2 with renal complications ([facility]) Family History Medical History Relation Name Comments [...] age to complete this topic Care Teams Crime Data Specialist Relationship Specialty Start Date End Date Nicola Spears MD [address] [place] [address] PCP - General Internal Medicine 10/27/21
--- OUTSIDE RECORDS SUMMARY | 2025-06-07 12:13 | XMS_ITS | Clinical Summary ---
Author Organization [facility] Address [address] [place] [address] Phone Care Team Providers Care Furnace Keeper Name Role Phone Salvador Marcus MD Unavailable [phone] Jonna Bolaños MD Primary Care Provider [phone] Allergies Active Allergy Reactions Criticality Noted Date [...] topic Medical Devices Not on file Insurance [facility] [place] [address] [place] [address] [place] [address] [place] [address] ACO [facility] [place] [address] [place] [address] ACO Care Teams Furnace Keeper Relationship Specialty Start Date End Date Jonna Bolaños MD [address] [place] [phone] PCP - General Internal Medicine 08/05/23 Salvador Marcus MD [address] [place] [address] [email or web address] Historical LMR Provider 08/06/17 Additional Source Comments The information contained in this document represents components of the legal health record. It is not the complete legal health record.[facility]
[2025-07-01] VITALS (13 sets, daily range): BP systolic 107–164; BP diastolic 56–92; PULSE 75–96; RESP 16–20; TEMP 36.4–36.8; O2SAT 94–100; BMI 46.2
--- NOTE | ~2025-07-01 | CT_ITS ---
EXAMINATION: CT-guided bone marrow biopsy. CLINICAL INDICATION: Abnormal bone marrow signal in cervical spine COMPARISON: MRI cervical spine 03/25/2025. TECHNIQUE: Following explaining CT fluoroscopy guided iliac crest bone marrow biopsy procedure, benefits and risk, a written consent was obtained. Patient was placed prone on fluoroscopy table and limited CT imaging was obtained through the pelvis. An optimal axial slices selected for left iliac crest biopsy and markers placed along the skin. CT exam was repeated and is marker on the skin was selected and marked on the skin. The site marked was cleaned and draped in usual sterile manner. 1% lidocaine was inserted at the skin. Through a small skin incision a 18-gauge guide needle was advanced from the skin to the posterior aspect of the iliac crest. A drill was attached to the guide needle and the needle was drilled into the posterior iliac bone marrow. Stylet was removed and 10 mL of bone marrow was aspirated in a syringe. The aspirate was then put in at least 6 different syringes which contained heparin and a EDTA. Subsequently a bone biopsy needle was advanced to a drill and a large bone narrowed junk was obtained and sent to lab. Postprocedure the guide needle was withdrawn and complete hemostasis achieved at puncture site. Sterile dressing applied post procedure. Conscious sedation was utilized during exam and patient monitored by our nurse and IR physician for 15 minutes. FINDINGS: On preliminary CT imaging there is an IUD in uterus. There is no free fluid. The bladder and the uterus otherwise unremarkable. No abnormal pelvic adenopathy. The bone marrow signal is mostly unremarkable. 2 bone marrow aspirates and a single core bone marrow biopsy was performed under CT fluoroscopy. There were no complications. CT/CT biopsy asp core bone marrow IMPRESSION: Successful CT fluoroscopy guided left posterior iliac crest bone marrow aspirate x 2 and biopsy was performed. DLP 2 53 mGy/cm. Sedation time: 15 minutes Electronically signed by: Tobin Cardenas MD 07/01/2025 04:43 PM EDT
[2025-07-01 09:25] LABS: MANUAL DIFF FLAG NO
[2025-07-01 09:26] LABS: UPreg QC Valid YES
[2025-07-01 09:29] LABS: Hematocrit 41.9 % (37.0-47.0); Hemoglobin 15.0 g/dl (12.0-16.0); Imm Gran Abs Auto 0.06 X10*3/uL (0.00-0.03); Imm Gran Pct Auto 0.6 % (0.0-0.4); Lymphocytes Absolute Auto 1.9 X10*3/uL (1.2-4.9); Mean Corpuscular HGB Conc 35.8 g/dl (31.0-35.0); Mean Corpuscular Hemoglobin 30.9 pg (27.0-33.0); Mean Corpuscular Volume 86.2 fL (80.0-98.0); NRBC Abs Auto 0.000 X10*3/uL (0.0-0.012); NRBC Pct Auto 0.0 /100WBC (0.0-0.2); Platelet Count 243 X10*3/uL (160-400); Red Blood Count 4.86 X10*6/uL (4.20-5.50); White Blood Count 9.3 X10*3/uL (4.8-10.8)
[2025-07-01 09:35] LABS: INTERNATIONAL NORM RATIO 1.0 (0.9-1.1); Prothrombin Time 11.5 SEC (10.9-12.4)
[2025-07-01 09:44] LABS: Anion Gap 15 (12-20); Blood Urea Nitrogen 11 mg/dL (9-16); Calcium 9.1 mg/dL (8.4-10.2); Carbon Dioxide 22 mmol/L (22-29); Chloride 103 mmol/L (96-108); Creatinine Clr Calc Pharmacy 148.3; Estimated Glomerular Filt Rate > 60; Potassium 4.3 mmol/L (3.3-5.1); Sodium 136 mmol/L (135-145)
[2025-07-01 10:05] LABS: Glucose, Whole Blood 264 mg/dL (60-115)
[2025-07-01] MEDS: oxyCODONE HCl Immed Release 5 MG TABLET PO (12:05)
== END 2025-07-01 13:37 | disposition home or self-care (01) ==
PROVIDERS: Radiology Diagnostic Radiology; PCP Nurse Practitioner Family; Visit Provider Internal Medicine Medical Oncology
DX: R93.7 Abnormal findings on diagnostic imaging of other parts of musculoskeletal system (principal); R93.89 Abnormal findings on diagnostic imaging of other specified body structures; M48.02 Spinal stenosis, cervical region; E83.10 Disorder of iron metabolism, unspecified; R53.83 Other fatigue; G93.2 Benign intracranial hypertension; R51.9 Headache, unspecified; R20.0 Anesthesia of skin; I10 Essential (primary) hypertension; E11.9 Type 2 diabetes mellitus without complications; J45.909 Unspecified asthma, uncomplicated; Z86.718 Personal history of other venous thrombosis and embolism; K21.9 Gastro-esophageal reflux disease without esophagitis; E66.01 Morbid (severe) obesity due to excess calories; Z68.42 Body mass index [BMI] 45.0-49.9, adult; Z79.899 Other long term (current) drug therapy; Z88.8 Allergy status to other drugs, medicaments and biological substances; Z97.5 Presence of (intrauterine) contraceptive device; Z98.890 Other specified postprocedural states; Z56.0 Unemployment, unspecified
CPT/HCPCS: 36415; 38222; 77012; 80048; 81025; 82947; 85025; 85610; 88184; 88185; 88237; 88264; 88300; 88305; 88311; 88313; 88341; 88342; 99152; J2003; J2250; J3010

== ENCOUNTER → 2025-07-01 10:13 | Outpatient (BNV) | payer OTHER, SELFPAY | PROVIDERS: PCP Nurse Practitioner Family; Visit Provider Radiology Diagnostic Radiology | DX: R93.7 Abnormal findings on diagnostic imaging of other parts of musculoskeletal system (principal) | CPT/HCPCS: 38222; 77012; 99152 ==

== ENCOUNTER 2025-07-14 09:41 | Outpatient (REF) | payer OTHER, SELFPAY ==
--- OUTSIDE RECORDS SUMMARY | 2025-07-14 18:09 | XMS_ITS | Data Portability ---
Author Organization [facility] [employer] [employer] Address [address] [place] [address] [place] [address] Care Team Providers Care Parimutuel Cashier Name Role Phone JAZMYNE LINDO Referring Provider [...] likely that the CSF assays sent by [facility] after September 10, 2023 lumbar puncture [...] in false positive, predominantly with the positioning b lalitha should be straight, not curled up a nd with making sure there is no Valsalva by the patient. Medications per patient inhalers, topiramate, acetazolamide, magnesium, riboflavin, Emgality, Jardiance, Lantus, ondansetron, rizatriptan PLAN Susan Fanny ([facility]), January 27, 2024 We will find: Ophthalmology note, CSF results sent after [facility] Follow up after mrossen Not [...] likely that the CSF assays sent by [facility] after September 10, 2023 lumbar puncture [...] cervical spine without contrast February 13, 2024 [facility] radiology: Suboptimal evaluation secondary to motion. Within this constraint: The cervical spinal cord is normal in signal intensity. There is no high-grade central spinal canal stenosis. Up to moderate bilateral neuroforaminal stenosis at C4-5. MRV brain with and without IV contrast, [facility], compared to brain MRI December 17, 2018 and MR a head October 01, 2023 [facility]: No cerebral venous thrombosis, unremarkable study more generally. MRA head without contrast [facility] October 02, 2023: Normal. [id number] clear, colorless, WBC = 0, RBC = 12/8 [2 #4 presumably], glucose 106, total protein 25.1 serum: September 10 2023 glucose 210 test negative Lumbar puncture note [facility], September 10, 2023, for chief complaint [...] pressure suggests diagnosis of idiopathic intracranial hypertension i n the context of the unrevealing MRV. However, ophthalmology June 2023 consultation does not find papilledema. The patient mentions that they had a repeat ophthalmology evaluation in August and the diagnosis did not change. My recommendation then is as I thought at initial consultation: Repeat lumbar puncture to see if there is normal pressure a nd that the opening pressure measured September 10, 2024 was a false positive. Medications per patient inhalers, topiramate, acetazolamide, magnesium, riboflavin, Emgality, Jardiance, Lantus, ondansetron, rizatriptan PLAN Susan Escobedo ([facility]), March 24, 2024 She wants to think about whether she wants to continue working with me. She will call, and a week she thinks, if she does, and we agree that at that point I would look at [facility] interventional radiology and have her follow-up to discuss the results after with me. [email or web address] Not available 03/24/2024 10:45:48 Plan of Treatment [...] By Organization Details Last Modified Time 01/27/2024 68244 Discussion acros s issues of diagnoses and management and same day associated chart review and management greater than 50% greater than 60 minutes terrance Not available 01/27/2024 14:30:31 03/24/2024 18380 PREVIOUS DISCUSSION >>>>>>>>January 27, 2024 initial neurology [...] in false positive, predominantly with the positioning b lalitha should be straight, not curled up a nd with making sure there is no Valsalva by the patient. Discussion across issues of diagnoses and management and same day associated chart review and management greater than 50% greater than 40 minutes terrance Not available 03/24/2024 10:45:54 Reason for Referral [...] No observ ation record ed. [email or web address] [facility] [place] [address] [facility], [place], [address], 03/25/2024 16:03:10 Result Notes None recorded. Procedures Surgical History Date Name Laterality Status Provider Name and Address Organization Details Recorded Time 03/24/2024 DATA REVIEW completed Ilya Mckeon MD [address] [place] [address], [phone], [facility] 03/24/2024 10:16:01 01/27/2024 DATA REVIEW completed Ilya Mckeon MD [address] [place] [address], [phone], [facility] 01/27/2024 14:11:59 Imaging Results None recorded. Procedure Notes None recorded. Medical Equipment None Reported. Allergies Allergen ID Allergen Name Allergen Category Reaction Reaction Severity Criticality Documentation Date Start Date Code Code System Note Provider Name and Address Organization Details Recorded Time 3895 heparin medicatio n Not available Not available Not available 01/27/2024 5224 RxNorm [facility] 13:24:25 Medications Name Sig Start [...] Updated DateTime 01/27/2024 149.86 cm 46 kg/m2 669068.06 g 12 /min Eli Vegas [facility] 01/27/2024 13:24:17 Social History Question Answer Notes LastModified by Organizat ion Details LastModified Time Tobacco Smoking Status Never Smoker Eli haile [facility] 01/27/2024 13:26:01 What Is Your Level Of Caffeine Consumption? Moderate 1 Cup Daily Information not available 01/27/2024 What Is The Highest Grade Or Level Of School You Have Completed Or The Highest Degree You Have Received? [id number] Information not available 01/27/2024 Which Of Your [...] B12 deficiency N PTSD N Heart Attack (MT) N Spine Problems N Obstructive Sleep Apnea [...] Diagnosis SNOMED-CT Code Diagnosis ICD10 Code Diagnosis IMO Codes Diagnosis Note [id number] Ilya Mckeon MD [facility] [address] [place] [address] [place] [address] 01/27/2024 12:43:24 01/27/2024 15:32:53 Benign intracranial hypertension 81516029 G93.2 Migraine without aura 56 608395 G43.009 [id number] Ilya Mckeon MD [facility] [address] [place] [address] [place] [address] 03/24/2024 09:45:33 03/24/2024 10:51:41 Benign intracranial hypertension 99066762 G93.2 Migraine without aura 56 750777 G43.009 Health Concerns Section Related Observation LastModified by Organization Detai ls LastModified Time None Recorded Concern Status LastModified by Organization Details LastModified Time None Recorded Advance Directives Directive None Recorded Payers Insurance Date Sequence Insurance Name Policy Number Policy Cowan Covered Member ID Cowan Member ID Guarantor Name 04/01/2024 1 [facility] ([facility]) [id number] Susan Escobedo [id number] Susan Escobedo Notes Date Note Type Note Provider Name and Address Organization Details Recorded Time 01/27/2024 text/html She presents for initial neurology consultation for assessment and management of June 26-2022, onset of persistent, dizziness, arm tingling, partially improved slurring, visual blurring, and on June 29 headache, which also persists, all preceded by 2000 23-day at the [place].She is accompanied by her sister, Gracie.Before June [...] note) after which neurology (JASWANT Rock) at [facility] gave her a diagnosis of idiopathic [...] less than previously, 50% Ilya Mckeon MD [address] [place] [address], [phone], [facility] 01/27/2024 16:54:01 03/24/2024 text/html Follow up of June 26-2022, onset of persistent, dizziness, arm tingling, partially improved slurring, visual blurring, and on June 29 headache, which also persists, all preceded by 2000 23-day at the [place].She is accompanied by her sister, Gracie. >>>>>>>>>March 24, 2024Since January 27, 2024 initial neurology consultation, she reports no new or changing symptomatology. She has had an MRI cervical spine and a soft tissue neck ultrasound following up physical therapy concerned about a swelling in her neck t his was identified by the ultrasound [...] note) after which neurology (JASWANT Rock) at [facility] gave her a diagnosis of idiopathic [...] than previously, 50% Ilya Mckeon MD [address] [place] [address] [place], [address], [facility] 03/24/2024 10:46:08 OBGyn Episode No OBEpisode recorded.
== END 2025-07-14 09:42 | disposition home or self-care (01) ==
LOC: HO.LNP 09:41
PROVIDERS: PCP Nurse Practitioner Family; Visit Provider Nurse Practitioner Family
DX: Z11.0 Encounter for screening for intestinal infectious diseases (principal)
CPT/HCPCS: 83013; 99211

== ENCOUNTER 2025-07-14 09:41 | Outpatient (AMB) | payer OTHER, SELFPAY ==
--- NOTE | 2025-07-14 10:10 | AM.OFFVISNUR ---
Intake Visit Reasons: H Pylori Intake Note: Patient presents for collection of?H Pylori?breath test. Patient has been fasting for 1 hour (nothing to eat, drink, no chewing gum or smoking) has not taken any antacid medication for at least 2 weeks and has no allergies to artificial sweeteners.?? Allergies Heparin Analogues (HEPARIN AGENTS) Allergy (Intermediate, Verified 07/07/25 08:22) HIVES, RASH, SEVERE BRUISING dulaglutide (From Trulicity) Allergy (Verified 07/07/25 08:22) Rash Assessment & Plan Assessment & Plan (1) Nausea: Code(s): R11.0 - Nausea Category: Medical (2) GERD (gastroesophageal reflux disease): Code(s): K21.9 - Gastro-esophageal reflux disease without esophagitis Category: Medical Qualifiers: Esophagitis presence: esophagitis presence not specified Qualified Code(s): K21.9 - Gastro-esophageal reflux disease without esophagitis Plan Patient presents for collection of?H Pylori?breath test. Patient has been fasting for 1 hour (nothing to eat, drink, no chewing gum or smoking) has not taken any antacid medication for at least 2 weeks and has no allergies to artificial sweeteners.???This test checks for an overgrowth of bacteria in your stomach. We all have bacteria but some may have more than others. It is treatable. if the test comes back negative there is nothing else to do. If the test result is positive we will treat you with 2 antibiotics and a medication to decrease the acid in your stomach (PPI) for 2 weeks. Two weeks after you have completed the treatment we will retest you to make sure the overgrowth has resolved. Orders: Orders H Pylori Breath Test Today Patient Instructions: Process for specimen collection and reason for testing was explained to the patient. Specimen collection. Patient instructed to take a deep breath and then exhale into the blue bag, filling it up as much as possible. Patient instructed to drink a mixture of water and the artificial sweetener with a straw. A 15 minute wait period was observed. Patient instructed to take a deep breath and then exhale into the pink bag, filling it up as much as possible.?? Coding Level of Care Code Established Pt Est Pt Level 1 (34004) Patient Type Established Medical Decision Making Straight Forward Diagnoses Nausea R11.0 Gastroesophageal reflux disease, unspecified whether esophagitis present K21.9 Esophagitis presence: esophagitis presence not specified
--- OUTSIDE RECORDS SUMMARY | 2025-07-14 11:46 | XMS_ITS | Clinical Summary ---
Author Organization [facility] Address [address] [address] Phone Care Team Providers Care Hobbies And Crafts Sales Representative Name Role Phone Salvador Marcus MD Unavailable [phone] Jonna Bolaños MD Primary Care Provider [phone] Allergies Active Allergy Reactions Criticality Noted Date [...] topic Medical Devices Not on file Insurance [facility] [place] [address] [place] [address] [place] [address] [place] [address] [place] [address] [place] [address] [employer] [facility] [place] [address] [place] [address] ACO Care Teams [employer] Sales Representative Relationship Specialty Start Date End Date Jonna Bolaños MD [address] [place] [address] PCP - General Internal Medicine 08/05/23 Salvador Marcus MD [address] [place] [id number] [email or web address] Historical LMR Provider 08/06/17 Additional Source Comments The information contained in this document represents components of the legal health record. It is not the complete legal health record.[facility]
--- OUTSIDE RECORDS SUMMARY | 2025-07-14 11:46 | XMS_ITS | Clinical Summary ---
Author Organization [facility] Address [address] [place] [address] Care Team Providers Care Picked Edge Sewing Machine Operator Name Role Phone Nicola Spears MD Primary Care Provider [phone] Surgical History Surgery Date Site/Laterality Comments CARPAL TUNNEL RELEASE PROCEDURE: MS NEUROPLASTY &/TRANSPOS MEDIAN NRV CARPAL TUNNE; COMMENT: bilateral TONSILLECTOMY PROCEDURE: HISTORICAL TONSILLECTOMY COLONOSCOPY 05/01/2018 PROCEDURE: OUTSIDE COLONOSCOPY; COMMENT: diminutive tubular adenoma polyp. random colonic bx normal. KNEE ARTHROSCOPY W/ MENISCAL REPAIR 12/11/2019 PROCEDURE: MS ARTHROSCOPY KNEE W/MENISCUS RPR MEDIAL/LATERAL; COMMENT: root repair; [facility] Medical History Medical History Date Comments [...] (diabetes mellitus), type 2 with renal complications ([facility]HCC V24, [facility]/HCC V28) 04/29/2018 DX:DM (diabetes mellitus), t ype [...] age to complete this topic Care Teams Picked Edge Sewing Machine Operator Relationship Specialty Start Date End Date Nicola Spears MD [address] [place] [address] PCP - General Internal Medicine 10/27/21
== END 2025-07-14 10:12 | disposition home or self-care (01) ==
LOC: HO.HGI 09:42
PROVIDERS: PCP Nurse Practitioner Family; Visit Provider Nurse Practitioner Family
DX: R11.0 Nausea (principal); K21.9 Gastro-esophageal reflux disease without esophagitis

== ENCOUNTER 2025-07-30 07:54 | Outpatient (REF) | payer OTHER, SELFPAY ==
--- NOTE | ~2025-07-30 | FL_ITS ---
EXAMINATION: XR UPPER GI SERIES WITH air and barium swallow CLINICAL INFORMATION: Gastro-esophageal reflux disease without esophagitis COMPARISON: None available. TECHNIQUE: Barium swallow and upper GI using thin and thick barium and effervescent granules. Barium tablet also administered. FINDINGS: Swallowing mechanism is normal. No aspiration or penetration. Normal esophageal motility. Small sliding-type hiatal hernia. Mild gastroesophageal reflux. No mass, stricture or evidence of esophagitis. Barium tablet passed freely into the stomach. Stomach and proximal small bowel are normal appearing. No fold thickening, mass, ulcer or stricture. FLUOROSCOPY TIME: 1 minute and 31 seconds DOSE AREA PRODUCT: 1655 uGy-m2 (microgray-meter squared) FL/FL upper GI w air w Ba Swallow IMPRESSION: Small sliding-type hiatal hernia. Mild gastroesophageal reflux. Otherwise unremarkable exam. Electronically signed by: Evelin Mccain MD 07/30/2025 08:59 AM EDT
--- OUTSIDE RECORDS SUMMARY | 2025-07-30 07:57 | XMS_ITS | Data Portability ---
Author Organization [place] [facility], Allergy Address [address] [place] [address] Care Team Providers Care Instructor Adjunct Pharmacy Technician Name Role Phone PAZ CALDERON Primary Care Provider Assessment Encounter Date Assessment Date Assessment LastModified by Organization Details LastModified Time 12/18/2024 12/18/2024 44-year-old female with insulin-dependen t diabetes, Chiari malformation, benign intracranial hypertension, migraines on Botox, presents today for evaluation primarily of dizziness with symptoms of imbalance, room spinning vertigo and tinnitus. She has had multiple imaging studies as noted in the HPI. Audiometric testing today is normal. [place] is negative for any nystagmus. She does [...] on findings. [email or web address] Not available 12/27/2024 13:16:37 05/03/2025 05/03/2025 44-year-old female with insulin-dependen t diabetes, Chiari malformation, benign intracranial hypertension, migraines on Botox, presents today for reassessment after swallow study showing persistent laryngeal penetration with multiple liquid consistencies without evidence of glottic or subglottic aspiration. I did perform flexible laryngoscopy today. This shows normal and symmetric true cord mobility. Does appear she has some decrease sensation is palpation with the scope of the arytenoids did not induce a strong cough reflex. This is likely related to her underlying comorbidities. I reassured her there was no structural anomaly. She may follow-up as needed. [email or web address] Not available 05/05/2025 13:09:08 Plan of Treatment Reminders Order Date Submit Date Provider Last Modified By Organization Details Last Modified Time Details Appointments None recorded. Lab None recorded. Referral None recorded. Procedures None recorded. Surgeries None recorded. Imaging [place], modified barium swallow study 2024 025 [facility] (Imaging), [address] [place] [address], [address], 09:56:43 Medication Orders None recorded. Patient TargetsNo [...] Address Organization Details Recorded Time Bilateral tinnitus 8149669274543 Active [address] [place], CCC-A [address] [facility] [address], [place], [address], [facility] - [facility] [place] 5 10:38:56 Chiari malformatio n 317184461 Active [address] [place], CCC-A [address] [facility], [address], [place], [address], [facility] - [facility] [place] 5 10:39:04 Vertigo 367555822 Active [address] [place], CCC-A [address] [facility], [address], [place], [address], [facility] - [facility] [place] 5 10:39:30 Oropharynge al dysphagia 99354166 Active 2024 JOSELO MELTON MD [address] [facility], [address], [place], [address], [facility] - [facility] [place] 11:10:35 Problem Notes None recorded. Procedures Surgical History Date Name Laterality Status Provider Name and Address Organization Details Recorded Time 05/03/20 25 Fiberoptic Laryngoscopy (Comprehensive) completed JOSELO MELTON MD [address] [facility] [facility], [place], [address], [facility] 05/05/2025 13:07:21 12/18/19 25 Air & Speech Audio with Tymps - 53635, [address] & [address] [place], [facility] [address] [facility] [place],[address], [place], [address], [facility] 12/18/2024 10:39:42 12/18/19 25 OAE distortion product, comprehensive - [address] [place], [facility] [address] [facility],[place] [address], [place], [address], [facility] 12/18/2024 10:39:55 Imaging Results None recorded. Procedure Notes None recorded. Medical Equipment None Reported. Allergies Allergen ID Allergen Name Allergen Category Reaction Reaction Severity Criticality Documentation Date Start Date Code Code System Note Provider Name and Address Organization Details Recorded Time 754093 heparin medicatio n Not available Not available Not available 12/18/2024 5224 RxNorm Latonia haile [place] - [facility] 10:53:11 Medications Name Sig Start Date Stop [...] Updated DateTime 12/18/2024 149.86 cm 44.4 kg/m2 55211.32 g Latonia John [place] - [facility] 12/18/2024 10:46:07 Date Recorded Body height Body mass index (BMI) Body weight Provider Name and Address Organization Details Last Updated DateTime 05/03/2025 149.86 cm 44.4 kg/m2 45849.32 g Latonia John [place] - [facility] 05/03/2025 10:24:49 Social History None recorded. Functional [...] ICD10 Code Diagnosis IMO Codes Diagnosis Note [id number] JOSELO MELTON MD [facility] [address] [place] [address] 12/18/2024 09:54:35 12/18/2024 11:14:35 Bilateral tinnitus 2666711082 102 H93.13 Audiologic al evaluation results: Right [...] at the test frequency. Chiari malformation 2531 99277 Q07.00 Vertigo 837337212 R42 Oropharyng eal dysphagia 91227635 R13.12 [id number] JOSELO MELTON MD [facility] [address] [place] [address] 05/03/2025 10:14:46 05/03/2025 10:44:03 Chiari malformation 217749404 Q07.00 Oropharyng eal dysphagia 06464225 R13.12 Health Concerns Section Related Observation LastModified by Organization Detai ls LastModified Time None Recorded Concern Status LastModified by Organization Details LastModified Time None Recorded Advance Directives Directive None Recorded Payers Insurance Date Sequence Insurance Name Policy Number Policy Cwoan Covered Member ID Cowan Member ID Guarantor Name 12/18/2024 1 [facility] ([facility] NETWORK) [id number] Susan Escobedo [id number] Susan Escobedo 05/11/2025 1 [facility] NET PLAN (MEDICAID HMO) FRANKI Escobedo [id number] Susan Escobedo Notes Date Note Type Note Provider Name and Address Organization Details Recorded Time 5 text/html ROS as noted in the HPI 44 yo F with dysphagia and dizziness. [...] due to sound sensitivity JOSELO MELTON MD [address] [place] [address], [phone], [place] - [facility] 12/27/2024 13:17:13 5 text/html Had swallow study at [facility]. There was persistent laryngeal penetration on multiple liquid consistencies without evidence of glottic or subglottic aspiration. No significant cricopharyngeal achalasia was noted. She had an MRI with and without gadolinium in March showing borderline low-lying cerebellar tonsils and a few scattered foci of T2 signal prolongation. JOSELO MELTON MD [address] [place] [address], [place], [address], [facility] - [facility] 05/05/2025 13:09:26 OBGyn Episode No OBEpisode recorded.
--- OUTSIDE RECORDS SUMMARY | 2025-07-30 07:57 | XMS_ITS | Data Portability ---
Author Organization [facility], [place] Address [address] [place] [address] [place] [address] Care Team Providers Care Aircraft Inspector Name Role Phone JAZMYNE LINDO Referring Provider [...] likely that the CSF assays sent by [facility] after September 10, 2023 lumbar puncture [...] find: Ophthalmology note, CSF results sent after [facility] Follow up after mrossen Not [...] likely that the CSF assays sent by [facility] after September 10, 2023 lumbar puncture [...] cervical spine without contrast February 13, 2024 [facility]: Suboptimal evaluation secondary to motion. Within this constraint: The cervical spinal cord is normal in signal intensity. There is no high-grade central spinal canal stenosis. Up to moderate bilateral neuroforaminal stenosis at C4-5. MRV brain with and without IV contrast, [facility], compared to brain MRI December 17, 2018 and MR a head October 01, 2023 [facility]: No cerebral venous thrombosis, unremarkable study more generally. MRA head without contrast [facility] October 02, 2023: Normal. [id number] clear, colorless, WBC = 0, RBC = 12/8 [2 #4 presumably], glucose 106, total protein 25.1 serum: September 10 2023 glucose 210 test negative Lumbar puncture note [facility], September 10, 2023, for chief complaint [...] ondansetron, rizatriptan PLAN [facility] March 24, 2024 She wants to think about whether she wants to continue working with me. She will call, and a week she thinks, if she does, and we agree that at that point I would look at [facility] interventional radiology and have her follow-up to [...] By Organization Details Last Modified Time 01/27/2024 [id number] Discussion acros s issues of diagnoses and management and same day associated chart review and management greater than 50% greater than 60 minutes terrance Not available 01/27/2024 14:30:31 03/24/2024 [id number] PREVIOUS DISCUSSION >>>>>>>>January 27, 2024 initial neurology [...] ast No observ ation record ed. [email or web address] [facility] [address] [facility], [place], [address], 03/25/2024 16:03:10 Result Notes None recorded. Procedures Surgical History Date Name Laterality Status Provider Name and Address Organization Details Recorded Time 03/24/2024 DATA REVIEW completed Ilya Mckeon MD [address] [place] [address], [phone], [facility] 03/24/2024 10:16:01 01/27/2024 DATA REVIEW completed Ilya Mckeon MD [address] [place] [address], [phone], [facility] 01/27/2024 14:11:59 Imaging Results None recorded. Procedure Notes None recorded. Medical Equipment None Reported. Allergies Allergen ID Allergen Name Allergen Category Reaction Reaction Severity Criticality Documentation Date Start Date Code Code System Note Provider Name and Address Organization Details Recorded Time 3895 heparin medicatio n Not available Not available Not available 01/27/2024 5224 [facility] 13:24:25 [...] Updated DateTime 01/27/2024 149.86 cm 46 kg/m2 991029.06 g 12 /min Eli Vegas [facility] 01/27/2024 13:24:17 Social History Question Answer Notes LastModified by Organizat ion Details LastModified Time Tobacco Smoking Status Never Smoker Eli haile [facility] 01/27/2024 13:26:01 What Is Your Level Of Caffeine Consumption? Moderate 1 Cup Daily Information not available 01/27/2024 What Is The Highest Grade Or Level Of School You Have Completed Or The Highest Degree You Have Received? [id number] Information not available 01/27/2024 Which Of Your [...] N Thyroid Problems N Lung Disease N Depression Y COPD or emphysema N Brain Tumors N Encephalitis N Vitamin B12 deficiency N PTSD N Spine Problems N Heart Attack (ND) N Obstructive Sleep Apnea N Alcoholism N [...] ICD10 Code Diagnosis IMO Codes Diagnosis Note [id number] Ilya Mckeon MD [facility] [address] [place] [address] [place] [phone] 01/27/2024 12:43:24 01/27/2024 15:32:53 Benign intracranial hypertension 68423903 G93.2 Migraine without aura 56 263319 G43.009 [id number] Ilya Mckeon MD [facility] [address] [place] [address] [place] [address] 03/24/2024 09:45:33 03/24/2024 10:51:41 Benign intracranial hypertension 06708106 G93.2 Migraine without aura 56 992369 G43.009 Health Concerns Section Related Observation LastModified by Organization Detai ls LastModified Time None Recorded Concern Status LastModified by Organization Details LastModified Time None Recorded Advance Directives Directive None Recorded Payers Insurance Date Sequence Insurance Name Policy Number Policy Cowan Covered Member ID Cowan Member ID Guarantor Name 04/01/[address] [facility] [id number] Susan Escobedo [id number] Susan Escobedo Notes Date Note Type Note Provider Name and Address Organization Details Recorded Time 01/27/2024 text/html She presents for initial neurology consultation for assessment and management of June 26-2022, onset of persistent, dizziness, arm tingling, partially improved slurring, visual blurring, and on June 29 headache, which also persists, all preceded by 2000 23-day at the [facility].She is accompanied by her sister, Gracie.Before June [...] note) after which neurology (JASWANT Rock) at [facility] gave her a diagnosis of idiopathic [...] less than previously, 50% Ilya Mckeon MD [address] [place] [address], [phone], [facility] 01/27/2024 16:54:01 03/24/2024 text/html Follow up of June 26-2022, onset of persistent, dizziness, arm tingling, partially improved slurring, visual blurring, and on June 29 headache, which also persists, all preceded by 2000 23-day at the [facility].She is accompanied by her sister, Gracie. >>>>>>>>>March [...] note) after which neurology (JASWANT Rock) at [facility] gave her a diagnosis of idiopathic [...] less than previously, 50% Ilya Mckeon MD [address] [place] [address] [place], [phone], [facility] 03/24/2024 10:46:08 OBGyn Episode No OBEpisode recorded.
== END 2025-07-30 07:55 | disposition home or self-care (01) ==
LOC: HO.XRAY 07:54
PROVIDERS: PCP Nurse Practitioner Family; Visit Provider Nurse Practitioner Family
DX: J45.50 Severe persistent asthma, uncomplicated (principal); K21.9 Gastro-esophageal reflux disease without esophagitis; Z91.09 Other allergy status, other than to drugs and biological substances; Z79.899 Other long term (current) drug therapy
CPT/HCPCS: 74246; 99212

== ENCOUNTER → 2025-07-30 07:55 | Outpatient (BNV) | payer OTHER, SELFPAY | PROVIDERS: PCP Nurse Practitioner Family; Visit Provider Radiology Diagnostic Radiology | DX: K21.9 Gastro-esophageal reflux disease without esophagitis (principal); K44.9 Diaphragmatic hernia without obstruction or gangrene | CPT/HCPCS: 74246 ==

== ENCOUNTER 2025-07-30 14:13 | Outpatient (AMB) | payer OTHER, SELFPAY ==
[2025-07-30 14:23] VITALS: BP 109/62; PULSE 89; O2SAT 99; BMI 46.0
--- NOTE | 2025-07-30 14:23 | A.OFFVIS_ITS ---
Vital Signs 07/30/25 14:23 Height 4 ft 11 in Weight 228 lb BMI 46.0 BP 109/62 Blood Pressure Location Rt brachial Position Sitting Pulse 89 Pulse Source Pulse Oximeter Pulse Oximetry (%) 99 Oxygen Delivery Method Room Air Intake Visit Reasons: Asthma Allergies Heparin Analogues (HEPARIN AGENTS) Allergy (Intermediate, Verified 07/30/25 14:28) HIVES, RASH, SEVERE BRUISING dulaglutide (From Trulicity) Allergy (Verified 07/30/25 14:28) Rash HPI HPI Asthma: Details: 45-year-old lady, nonsmoker, now followed for severe persistent asthma and environmental allergies. After the last office visit patient was started on Dupixent with significant improvement in her symptoms. She denies recent e xacerbations. She is also using Breo and albuterol MDI/nebs. [facility] Medical History GERD (gastroesophageal reflux disease) Pseudotumor cerebri Anxiety Depression Morbid obesity Asthma Sleep apnea Hypertension IBS (irritable bowel syndrome) DVT (deep venous thrombosis) COVID-19 Diabetes Surgical History H/O colonoscopy [place] teeth extracted Hx of carpal tunnel repair Hx of tonsillectomy Hx of knee surgery Family History Maternal Grandfather Substance abuse Heart attack Maternal Grandmother Stomach cancer Father Diabetes Asthma Mother Asthma Social History Household Members: Family Housing: House Are you a primary care provider to a significant other at home: No Do you presently have visiting nurse or other home services: No 75 years or older and lives alone: No Alcohol intake: current Alcohol intake frequency: does not drink Patient Tobacco Use Status: Never used Tobacco e-Cigarette/Vaping Use: Never Used Second Hand Smoke Exposure: No Advance Directives Date on File: 06/29/22 service: No Current occupational status: unemployed Cognitive needs: Yes Hearing needs: Yes Vision needs: Yes (wear glasses) Review of Systems Const Denies daytime sleepiness, Denies excessive sweating, Denies fatigue, Denies fever(s), Denies lethargy, Denies malaise, Denies night sweats, Denies snoring and Denies weight loss Eyes Denies blurry vision and Denies itchy eyes ENT Denies nasal congestion, Denies post nasal drip, Denies sinus pain, Denies sinus pressure and Denies other ( Thrush) Card Denies chest pain, Denies pedal edema, Denies dyspnea, Denies orthopnea and Denies paroxysmal nocturnal dyspnea Resp Denies cough, Denies hemoptysis, Denies excessive phlegm production, Denies dyspnea, Denies snoring and Denies wheezing GI Denies abdominal pain and Denies heartburn Musc Denies myalgias, Denies arthralgias and Denies joint swelling Skin/Breast Denies rash Neuro Denies memory loss and Denies seizure-like activity Psych Denies abnormal sleep pattern, Denies anxiety and Denies memory loss Endo Denies excessive sweating, Denies fatigue and Denies heat intolerance Silver/Lymph Denies easy bruising Aller/Immun Denies itchy eyes, Denies seasonal rhinorrhea and Denies wheezing Physical Exam Vital Signs: Last Vital Signs Pulse 89 07/30/25 14:23 BP 109/62 07/30/25 14:23 Pulse Ox 99 07/30/25 14:23 Oxygen Delivery Method Room Air 07/30/25 14:23 BMI result Body Mass Index 46.0 Const General: no acute distress and alert Nutritional Appearance: obese Orientation/consciousness: Other orientation findings ( oriented) HEENT Head: Yes atraumatic Eyes General: appearance normal, both eyes and all related structures Sclerae: sclerae normal EOM: EOMs intact bilaterally Neck Neck: Yes supple Lymphatic: no lymphadenopathy noted Resp Effort & Inspection: normal respiratory effort and no use of accessory muscles Auscultation: clear to auscultation bilaterally Cardio Rate: regular rate Rhythm: regular rhythm Heart sounds: no gallops, no murmurs and no rubs Skin General skin exam: other ( warm) Extrem General: No clubbing, No cyanosis and No edema Assessment & Plan Assessment & Plan (1) Severe persistent asthma: Code(s): J45.50 - Severe persistent asthma, uncomplicated Category: Medical Qualifiers: Asthma complication type: uncomplicated Qualified Code(s): J45.50 - Severe persistent asthma, uncomplicated Plan: Well controlled on current regimen of Dupixent, Breo, and albuterol MDI/nebs. Continue current regimen. (2) Environmental allergies: Code(s): Z91.09 - Other allergy status, other than to drugs and biological substances Category: Medical Plan: Well controlled on Dupixent. Continue current regimen. Coding Level of Care Code Est Pt Level 4 (37197) Diagnoses Severe persistent asthma without complication J45.50 Asthma complication type: uncomplicated Environmental allergies Z91.09
== END 2025-07-30 14:41 | disposition home or self-care (01) ==
LOC: HO.HPS 14:14
PROVIDERS: PCP Nurse Practitioner Family; Visit Provider Internal Medicine Pulmonary Disease
DX: J45.50 Severe persistent asthma, uncomplicated (principal); Z91.09 Other allergy status, other than to drugs and biological substances
CPT/HCPCS: 99214

== ENCOUNTER 2025-08-05 08:11 | Outpatient (AMB) | payer OTHER, SELFPAY ==
--- NOTE | 2025-08-05 08:13 | A.OFFPC_ITS ---
Vital Signs 08/05/25 08:20 Height 4 ft 11 in Weight 229 lb BMI 46.2 BP 134/72 Blood Pressure Location Rt brachial Position Sitting Respiration 12 Pulse 95 Pulse Source Pulse Oximeter Temp 97.2 F Temp Source Oral Pulse Oximetry (%) 99 Oxygen Delivery Method Room Air Intake Visit Reasons: 3 MO 30 MIN ROUTINE FU Intake Note: Routine follow up. Clinical Neuropsychologist Required: No Allergies Heparin Analogues (HEPARIN AGENTS) Allergy (Intermediate, Verified 07/30/25 14:28) HIVES, RASH, SEVERE BRUISING dulaglutide (From Trulicity) Allergy (Verified 07/30/25 14:28) Rash Medication List - Last Reconciled 08/05/25 by Madison Travis, [employer] acetazolamide ER 500 mg PO DAILY albuterol sulfate 2.5 mg (3 mL) inhalation Q4-6H PRN albuterol sulfate 90 mcg/actuation (Ventolin HFA) 2 puffs inhalation QID PRN alprazolam 0.25 - 0.5 mg orally 1 tab 30 minutes prior to MRI, may repeat dose x's 1 (max 4 tabs in 1 day); 1 day MDD 1 mg bisacodyl (Dulcolax (bisacodyl)) 10 mg (2 x 5 mg) PO BEDTIME blood sugar diagnostic (FreeStyle Lite Strips) daily blood-glucose sensor (FreeStyle Zeynep 3 Sensor device) As directed bupropion HCl XL (Wellbutrin XL) 150 mg PO QAM canagliflozin (Invokana) 300 mg PO DAILY celecoxib (Celebrex) 100 mg PO Q12H 30 days cholecalciferol (vitamin D3) 1,250 mcg PO QWEEK clonidine HCl 0.3 mg PO BID [CoQ-10 400 mg PO DAILY] dupilumab (Dupixent) 300 mg (2 mL) subcut Q2W famotidine (Pepcid) 20 mg PO BEDTIME 30 days fluticasone furoate-vilanterol 200-25 mcg/dose (Breo Ellipta) 1 inh inhalation DAILY galcanezumab-gnlm (Emgality) 300 mg (3 mL) subcut Q30D 30 days glyburide 10 mg (2 x 5 mg) PO BID insulin glargine (Lantus Solostar U-100 Insulin) 20 units (0.2 mL) subcut BID lidocaine HCl 2% (Lidocaine Viscous) 1 mL mucous membrane QID PRN 25 days magnesium L-threonate 48 mg PO DAILY methazolamide 50 mg (2 x 25 mg) PO BID 30 days metoclopramide HCl 5 - 10 mg (1 - 2 x 5 mg) PO Q4-6H 30 days MDD 4 tabs onabotulinumtoxinA (Botox) 200 units IM ONCE 12 weeks ondansetron 4 - 8 mg (1 - 2 x 4 mg) PO Q6-8H PRN 30 days oral dosing syringes 1 mL syringes without needle. To be used as directed with viscous lidocaine intranasal order. Oxygen Home Use Start home O2 at 15-25 L/min via non-rebreather facemask x's 15- 20 minutes at onset of cluster headache attack. Patient will require both M tanks and E tanks. pen needle, diabetic (Ultra-Thin II Insulin Pen [place]) As directed polyethylene glycol 3350 (Miralax) 238 grams PO ONCE riboflavin (vitamin B2) 400 mg PO DAILY 30 days rimegepant (Nurtec ODT) 75 mg PO Q OTHER DAY sertraline 150 mg PO DAILY thiamine HCl (vitamin B1) 50 mg (1/2 x 100 mg) PO DAILY Tobacco use date assessed: 08/05/25 Dental Screening Dental Screen Date: 08/05/25 Did you have a dental visit in the last 12 months?: Yes Did you have a dental problem in the last 6 months where you did not have access to dental care?: No Was dental information given to patient?: Patient has dentist HPI HPI Comments History of Present Illness Details 45 year old female with mild intermitten t asthma, DM 2, history of COVID-19, DVT, Idiopathic intracranial with chiari malformation HTN, migraine headaches, IBS, Sleep apnea, Vit D def Status post carpal tunnel repair, tonsillectomy, R knee surgery Social: unemployed Health Maintenance: ? [place] [facility] [place] 09/[place]24 Mammo WNL ? PAP due for pap, has IUD placed 3 years ago. ? Tdap 2018, declined flu 08/21/24 [facility] exam nega tive for DM retinopathy bilat; Glaucoma suspect. Exam 10/2024 reports WNL this was done to eval blurred vision. Specialists: Obgyn first appt December 2024 [facility] [place] [facility] Ophthalmology: 07/07/24 [facility], DM Eye negative for retinopathy, visit q3mo [facility] History of Present Illness The patient is a 45-year-old female presenting with management of Type 2 Diabetes Mellitus. Type 2 Diabetes Mellitus: - Poor control with A1c 9.5 - Reports frustration, pain, and poor di etary choices - Experiences constant hunger with insul in use - Adhering to medication regimen, but ov erwhelmed by number of medications - Current insulin dosin units Lantu s BID Depression: - Current medications: Sertraline (150 m g), Bupropion - Worsening depression symptoms recently - Attributed to chronic illness burden - Active w/ outside prescriber and couns elar Idiopathic Intracranial Hypertension (IIH): - Managed by Dr. Johnson - Experiences headaches and eye pressure issues - Expects medication resumption soon Asthma: - Well controlled with Dupixent - Reduced inhaler use RACHAEL - Trouble with CPAP and prefers elevated sleeping due to reflux - asked to call [facility] pulm and inquire abo [place] consult for inspire Gastroesophageal Reflux Disease (GERD): - Mild acid reflux - Exploring non-invasive treatments, act michael w/ [facility] gi Chronic Pain: - Neck pain increasing with poor respons e to treatment Worse on L side, feels clumsy cant hold cup; affects L arm and leg. Headaches: - Oxygen therapy partially effective - active w [facility] neuro for complex mgmt Obesity: - Due to poor diet and low activity Review of Systems - Constitutional: Reports frustration, p ain, and lethargy. - Respiratory: Denies frequent inhaler u se. - Cardiovascular: Denies improvement wit h CPAP for sleep apnea. - Gastrointestinal: Reports acid reflux; denies effective management. - Neurologic: Reports headaches, weaknes s on the left side. - Musculoskeletal: Reports neck pain, re duced strength. - Psychiatric: Reports depression, frust ration. - Endocrine: Reports increased hunger an d poor insulin management. - Hematologic: Post-procedure discomfort after bone marrow sampling. - Sleep: Trouble with CPAP; sleep distur bances. Physical Exam General: Well developed, well nourished, in no acute distress. Appears stated age. Head: Normocephalic, atraumatic. Eyes: Pupils are equal, round and reactive to light and accommodation. Conjunctivae are clear. Lungs: Clear to auscultation bilaterally. No rales, rhonchi or wheeze noted. Good air flow in all garcia. Heart: Regular rate and rhythm. No murmurs, click, rubs or gallops are noted. Musculoskeletal: Joints are nontender, without swelling, redness, or effusions. Pulses: Peripheral pulses are equal and palpable bilaterally. Extremities: No clubbing, cyanosis nor edema is noted. Psych: Mood and affect appropriate. Results - Labs: Hemoglobin A1c 9.5 - Tests: Review of current continuous gl ucose monitor (CGM) showing trends Discussion Notes During the visit, I discussed the significant impact of poorly controlled Type 2 Diabetes Mellitus on the patient?s overall health, emphasizing the importance of achieving better glycemic control. Together, we decided to increase her Lantus dose to 30 units twice daily and monitor her glucose management via her CGM every two weeks. We discussed possible transition to other interventions if control is not achieved with this adjustment. I advised the patient on weight management and dietary adherence, acknowledging her challenges. For depression, current treatment with sertraline and bupropion continues, with specialist input acknowledged. Given her complex medical needs, options for addressing her sleep apnea via Inspire therapy were proposed, after reviewing her poor CPAP tolerance. Follow-up for asthma control showed stability with Dupixent. Return precautions include seeking immediate care for worsening symptoms. All risks, benefits, and alternatives discussed were comprehended by the patient. Consent obtained for treatment plan as outlined. Patient was given time to ask questions. All questions were answered to their satisfaction. Assessment and Plan 1. Type 2 Diabetes Mellitus - Lantus 30 units BID; monitor CGM titrate to max 40 units BId based on GMI q 2 weeks 2. Depression - Continue sertraline and bupropion & ca re w/ team 3. Idiopathic Intracranial Hypertension (IIH) - Resume medication per Dr. Johnson 4. Asthma - Maintain Dupixent by [facility] pulm 5. Insomnia and Sleep Apnea - Considered Inspire if needed 6. GERD - Non-drug measures considered, active w [facility] gi 7. Chronic Pain and Headaches - Evaluate pain regimen If L sided sx cont, she will let me know at next visit 8. Obesity - Focus on dietary changes Patient Instructions - Take Lantus 30 units twice daily - Monitor blood sugar with CGM every 2 w eeks - Continue current depression medication s as prescribed - Follow asthma plan and use inhaler as needed - Keep head elevated while sleeping - Contact doctor if severe symptoms occu r or do not improve - RTO 3 mo CPE Consent After a thorough discussion regarding her diabetes management, including benefits and risks of increasing her Lantus dose for improved glycemic control, I obtained consent from the patient. All treatment options, potential side effects, and the importance of monitoring through CGM were reviewed in detail. The patient understands and agrees with the proposed plan, noting the expected positive impact on her overall health outcomes. Patient was informed and verbally consented to the use of an ambient scribe for clinic note documentation during this visit. Total time spent caring for the patient today was 45 minutes. This includes time spent before the visit reviewing the chart, time spent during the visit, and time spent after the visit on documentation, reviewing laboratory results, diagnostic imaging, medications, performing a medically necessary evaluation, counseling on diagnoses, care coordination, ordering appropriate tests, ordering appropriate medications, review of tests performed by other providers, reporting test results with the patient, communication with other healthcare providers. COUNTS INCLUDE 234 BEDS AT THE [facility] Medical History (Updated 08/05/25 @ 08:54 by Madison Travis, [facility]) Anxiety Asthma COVID-19 Depression Diabetes DVT (deep venous thrombosis) GERD (gastroesophageal reflux disease) Hypertension IBS (irritable bowel syndrome) Morbid obesity Pseudotumor cerebri Right knee pain Severe persistent asthma Sleep apnea Tear of medial meniscus of right knee Surgical History (Updated 07/07/25 @ 08:48 by Anuja Glover, ESTRELLA) H/O colonoscopy Hx of carpal tunnel repair Hx of knee surgery Hx of tonsillectomy [place] teeth extracted Family History Maternal Grandfather Substance abuse Heart attack Maternal Grandmother Stomach cancer Father Diabetes Asthma Mother Asthma Social History Household Members: Family Housing: House Are you a primary chiropractic care to a significant other at home: No Do you presently have visiting nurse or other home services: No 75 years or older and lives alone: No Alcohol intake: current Alcohol intake frequency: does not drink Patient Tobacco Use Status: Never used Tobacco e-Cigarette/Vaping Use: Never Used Second Hand Smoke Exposure: No Advance Directives Date on File: 06/29/22 service: No Current occupational status: unemployed Cognitive needs: Yes Hearing needs: Yes Vision needs: Yes (wear glasses) Questionnaire Thrive Questionnaire Date Thrive assessed: 11/17/24 I am a: Patient What is your living situation today?: I have a steady place to live Within the past 12 months, did the food you bought not last and you didn't have the money to get more?: I choose not to answer this question Within the past 12 months, did you worry whether your food would run out before you got money to buy more?: I choose not to answer this question Do you have trouble paying for medicines?: No Do you have trouble getting transportation to medical appointments?: No Do you have trouble paying your heating and electricity bill?: I choose not to answer this question Do you have trouble taking care of your child, family member or friend?: I choose not to answer this question Do you have trouble with day-to-day activities such as bathing, preparing meals, shopping, managing finances, etc.?: I choose not to answer this question Are you currently unemployed and looking for a job?: I choose not to answer this question Are you interested in more education?: I choose not to answer this question Please select the resources that you would like help with: None Currently or been in a relationship where the following occur: I choose not to answer THRIVE Score: 0 SILVERIO-7 AMB Questionnaire SILVERIO-7 Date SILVERIO - 7 assessed: 02/17/25 Source: Developed by Drs. Aj Becker, Roxanna Mahan, Mino Moore and colleagues, with an educational fabricio from [employer]. ACT Questionnaire In the past 4 weeks, how much of the time did your asthma keep you from getting as much done at work, school or at home?: None of the time During the past 4 weeks, how often have you had shortness of breath?: Not at all During the past 4 weeks, how often did your asthma symptoms wake you up at night or earlier than usual in the morning?: Not at all During the past 4 weeks, how often have you had to use your rescue inhaler or nebulizer medication?: Not at all How would you rate your asthma control during the past 4 weeks?: Completely controlled ACT Interpretation: Negative Score: 25 Physical exam (Primary Care) Vital Signs: Last Vital Signs Temp 97.2 F 08/05/25 08:20 Pulse 95 08/05/25 08:20 Resp 12 08/05/25 08:20 BP 134/72 08/05/25 08:20 Pulse Ox 99 08/05/25 08:20 Oxygen Delivery Method Room Air 08/05/25 08:20 BMI result Body Mass Index 46.2 Tobacco/Smoking Status: Tobacco use Status Tobacco use date assessed 08/05/25 08/05/25 08:16 Patient Tobacco Use Status Never used Tobacco 08/05/25 08:16 e-Cigarette/Vaping Use Never Used 08/05/25 08:16 Thrive Assessment: Date of Thrive Assessment Date Thrive assessed 11/17/24 08/05/25 08:16 Currently or been in a relationship where the following occur: I choose not to answer Office Procedures Glucose Monitoring Details Details: GMI 9.7 % 90 DAY > GOAL 48506 - Continuous Glucose Monitoring, patient provides equipment 76251 - Glucose monitoring, continuous-physician I&R Procedure code (CPT) selection complete Results AMB Hemoglobin A1c AMB Hemoglobin A1c 9.5 % Last Edit by Kesha Shaikh MA on 08/05/25 08:37 Results Reviewed Results Reviewed: Laboratory Last Values Hgb A1c (Clinic) 9.5 % (4.0-6.0) H 08/05/25 08:24 Coding Level of Care Code Est Pt Level 5 (32675) Complex EM visit Add On G2211 Diagnoses Diabetes mellitus type 2 with complications E11.8 Type 2 diabetes mellitus with hyperglycemia, with long-term current use of insulin E11.65; Z79.4 Diabetes mellitus complication status: with hyperglycemia Influenza vaccination declined Z28.21 Moderate episode of recurrent major depressive disorder F33.1 Major depression episode severity: moderate SILVERIO (generalized anxiety disorder) F41.1 Asthma J45.909 Obstructive sleep apnea G47.33 Chiari I malformation G93.5 Morbid obesity with BMI of 45.0-49.9, adult E66.01; Z68.42 CPT Codes Details - CPT: 99467 - Continuous Glucose Monitoring, patient provides equipment ([id number]) Details - CPT: 58073 - Glucose monitoring, continuous-physician I&R ([id number]) Additional Codes Asthma Control Questionnaire - ACT Interpretation: Negative ([id number]) Assessment & Plan Assessment & Plan (1) Diabetes mellitus type 2 with complications: Code(s): E11.8 - Type 2 diabetes mellitus with unspecified complications Category: Medical (2) Insulin use (long-term) in type 2 diabetes: Code(s): E11.9 - Type 2 diabetes mellitus without complications; Z79.4 - 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 insulin Category: Medical Qualifiers: Diabetes mellitus complication status: with hyperglycemia Qualified Code(s): E11.65 - Type 2 diabetes mellitus with hyperglycemia; Z79.4 - group home (current) use of insulin (3) Influenza vaccination declined: Onset Date: ~08/05/25 Code(s): Z28.21 - Immunization not carried out because of patient refusal Category: Medical (4) MDD (major depressive disorder), recurrent episode: Code(s): F33.9 - Major depressive disorder, recurrent, unspecified Category: Medical Qualifiers: Major depression episode severity: moderate Qualified Code(s): F33.1 - Major depressive disorder, recurrent, moderate (5) SILVERIO (generalized anxiety disorder): Code(s): F41.1 - Generalized anxiety disorder Category: Medical (6) Asthma: Code(s): J45.909 - Unspecified asthma, uncomplicated Category: Medical (7) Obstructive sleep apnea: Comment: should be on CPAP but cannot tolerate Code(s): G47.33 - Obstructive sleep apnea (adult) (pediatric) Category: Medical (8) Chiari I malformation: Code(s): G93.5 - Compression of brain Category: Medical (9) Morbid obesity with BMI of 45.0-49.9, adult: Comment: with HLD and DM and HTN Code(s): E66.01 - Morbid (severe) obesity due to excess calories; Z68.42 - Body mass index [BMI] 45.0-49.9, adult Category: Medical Plan . 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 HOLD at good GMI. - Continue current depression medications as prescribed - Follow asthma plan and use inhaler as needed - Keep head elevated while sleeping - ask Pulm about Inpsire and see if your a candidate - Contact doctor if severe symptoms occur or do not improve
--- OUTSIDE RECORDS SUMMARY | 2025-08-05 08:18 | XMS_ITS | Clinical Summary ---
Author Organization [employer] [facility] ity Address [address] [place] [address] Care Team Providers Care Soils Analyst Name Role Phone Nicola Spears MD Primary Care Provider [phone] Surgical History Surgery Date Site/Laterality Comments CARPAL TUNNEL RELEASE PROCEDURE: MT NEUROPLASTY &/TRANSPOS MEDIAN NRV CARPAL TUNNE; COMMENT: bilateral TONSILLECTOMY PROCEDURE: HISTORICAL TONSILLECTOMY COLONOSCOPY 05/01/2018 PROCEDURE: OUTSIDE COLONOSCOPY; COMMENT: diminutive tubular adenoma polyp. random colonic bx normal. KNEE ARTHROSCOPY W/ MENISCAL REPAIR 12/11/2019 PROCEDURE: MT ARTHROSCOPY KNEE W/MENISCUS RPR MEDIAL/LATERAL; COMMENT: root repair; [facility] Medical History Medical History Date Comments Chiari [...] obesity wit h BMI of 45.0-49.9, adult ([facility]) Tubular adenoma of colon 05/15/2018 DX:Tubu lar adenoma of colon Irritable bowel syndrome wit h diarrhea 08/05/2018 DX:Irritable bowel syndrome with diarrhea Moderate persistent asthma w ith acute exacerbation 01/05/2019 DX:Moderate persistent asthm a with acute exacerbation DM (diabetes mellitus), type 2 with renal complications ([facility]/HCC V24, [facility]/HCC V28) 04/29/2018 DX:DM (diabetes mellitus), t ype 2 with renal complications ([facility]) Family History Medical History Relation [...] Last Done Comments Breast Cancer Screening 1980 Colorectal Cancer Screening: Colonoscopy 1980 Diabetes: Annual GFR (Glomer ular Filtration Rate) 1980 Diabetes: Annual Foot Exam 1990 Diabetes: Annual Retina Eye Exam 1990 Hepatitis B Vaccines (1 of 3 - 19+ 3-dose series) 1999 Pneumococcal Vaccine: Pediat rics (0 to 5 Years) and At-Risk Patients (6 to 49 Years) (1 of 2 - PCV) 1999 Cervical Cancer Screening: P ap Smear 2001 HPV Vaccines (1 - 3-dose SCD M series) 2007 Cholesterol Screening (Lipid Panel) 06/15/2024 Diabetes: Annual Urine Albumin-Creatinine Ratio (uACR) 06/15/2024 Diabetes: Blood Sugar Contro l Test (HGBA1C) 06/15/2024 HIV Screening 06/15/2024 Hepatitis C Screening 06/15/2024 Social Influencers of Health Screening 06/15/2024 Depression Screening 10/21/2024 COVID-19 Vaccine (1 - 2023-2 5 season) 2025 Influenza Vaccine (#1) 2025 DTaP,Tdap,and Td Vaccines (2 - Td or Tdap) 04/29/2028 04/29/2018 RSV Immunization Adult Patie nts (1 - 1-dose 75+ series) 2055 HIB Vaccines Aged Out No longer eligi [...] age to complete this topic Care Teams Soils Analyst Relationship Specialty Start Date End Date Nicola Spears MD [address] [place] [id number] PCP - General Internal Medicine 10/27/21
--- OUTSIDE RECORDS SUMMARY | 2025-08-05 08:18 | XMS_ITS | Data Portability ---
Author Organization [facility] [employer], [employer] Address [address] [place] [address] [place] [address] Care Team Providers Care Traffic Expert Name Role Phone JAZMYNE LINDO Referring Provider [...] likely that the CSF assays sent by [facility] after September 10, 2023 lumbar puncture [...] find: Ophthalmology note, CSF results sent after [facility] Follow up after mrossen Not [...] likely that the CSF assays sent by [facility] after September 10, 2023 lumbar puncture [...] cervical spine without contrast February 13, 2024 [facility] radiology: Suboptimal evaluation secondary to motion. Within this constraint: The cervical spinal cord is normal in signal intensity. There is no high-grade central spinal canal stenosis. Up to moderate bilateral neuroforaminal stenosis at C4-5. MRV brain with and without IV contrast, [facility], compared to brain MRI December 17, 2018 and MR a head October 01, 2023 [facility]: No cerebral venous thrombosis, unremarkable study more generally. MRA head without contrast [facility] October 02, 2023: Normal. [id number] clear, colorless, WBC = 0, RBC = 12/8 [2 #4 presumably], glucose 106, total protein 25.1 serum: September 10 2023 glucose 210 test negative Lumbar puncture note [facility], September 10, 2023, for chief complaint [...] [facility] March 24, 2024 She wants to think about whether she wants to continue working with me. She will call, and a week she thinks, if she does, and we agree that at that point I would look at [facility] interventional radiology and have her follow-up [...] By Organization Details Last Modified Time 01/27/2024 [id number] Discussion acros s issues of diagnoses and management and same day associated chart review and management greater than 50% greater than 60 minutes terrance Not available 01/27/2024 14:30:31 03/24/2024 23340 PREVIOUS DISCUSSION >>>>>>>>January 27, 2024 initial neurology [...] ast No observ ation record ed. [email or web address] [facility] [address] [facility], [place], [address], 03/25/2024 16:03:10 Result Notes None recorded. Procedures Surgical History Date Name Laterality Status Provider Name and Address Organization Details Recorded Time 03/24/2024 DATA REVIEW completed Ilya Mckeon MD [address] [place] [address], [phone], [facility] 03/24/2024 10:16:01 01/27/2024 DATA REVIEW completed Ilya Mckeon MD [address] [place] [address], [phone], [facility] 01/27/2024 14:11:59 Imaging Results None recorded. Procedure Notes None recorded. Medical Equipment None Reported. Allergies Allergen ID Allergen Name Allergen Category Reaction Reaction Severity Criticality Documentation Date Start Date Code Code System Note Provider Name and Address Organization Details Recorded Time 3895 heparin medicatio n Not available Not available Not available 01/27/2024 5224 RxNorm [facility] 13:24:25 Medications Name Sig Start Date [...] Updated DateTime 01/27/2024 149.86 cm 46 kg/m2 376809.06 g 12 /min Eli Vegas [facility] 01/27/2024 13:24:17 Social History Question Answer Notes LastModified by Organizat ion Details LastModified Time Tobacco Smoking Status Never Smoker Eli haile [facility] 01/27/2024 13:26:01 What Is Your Level Of Caffeine Consumption? Moderate 1 Cup Daily Information not available 01/27/2024 What Is The Highest Grade Or Level Of School You Have Completed Or The Highest Degree You Have Received? [id number] Information not available 01/27/2024 Which Of Your [...] N Vitamin B12 deficiency N Heart Attack ([place]) N Spine Problems N Obstructive Sleep Apnea [...] ICD10 Code Diagnosis IMO Codes Diagnosis Note [id number] Ilya Mckeon MD [facility] [address] [place] [address] [place] [phone] 01/27/2024 12:43:24 01/27/2024 15:32:53 Benign intracranial hypertension 57842660 G93.2 Migraine without aura 56 050427 G43.009 [id number] Ilya Mckeon MD [facility] [address] [place] [address] [place] [phone] 03/24/2024 09:45:33 03/24/2024 10:51:41 Benign intracranial hypertension 99183617 G93.2 Migraine without aura 56 174783 G43.009 Health Concerns Section Related Observation LastModified by Organization Detai ls LastModified Time None Recorded Concern Status LastModified by Organization Details LastModified Time None Recorded Advance Directives Directive None Recorded Payers Insurance Date Sequence Insurance Name Policy Number Policy Cowan Covered Member ID Cowan Member ID Guarantor Name 04/01/2024 1 [facility] [id number] Susan Escobedo [id number] Susan Escobedo Notes Date Note Type Note Provider Name and Address Organization Details Recorded Time 01/27/2024 text/html She presents for initial neurology consultation for assessment and management of June 26-2022, onset of persistent, dizziness, arm tingling, partially improved slurring, visual blurring, and on June 29 headache, which also persists, all preceded by 2000 23-day at the welcome.She is accompanied by her sister, Gracie.Before June [...] note) after which neurology (JASWANT Rock) at [facility] 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
--- OUTSIDE RECORDS SUMMARY | 2025-08-05 08:18 | XMS_ITS | Clinical Summary ---
Author Organization [facility] Address [address] [address] Phone Care Team Providers Care Sex Therapist Name Role Phone Salvador Marcus MD Unavailable [phone] Jonna Bolaños MD Primary Care Provider [phone] Allergies Active Allergy Reactions Criticality Noted Date [...] Health Maintenance Due Date Last Done Comments LIPID PANEL 1980 DEPRESSION SCREENING 1992 HEPATITIS C SCREENING 1998 HIV ONE-TIME SCREENING (18-6 5 YEARS) 1998 PAP SMEAR 2001 SCREENING FOR DIABETES 2015 MAMMOGRAM 2020 INFLUENZA VACCINE (#1) 2025 4, 07/24/2014, 06/26/2013 COVID-19 VACCINE (3 - 2024-2 6 season) 2025 05/24/2021, 04/26/2021 COLOGUARD 2025 COLONOSCOPY 2025 COLORECTAL CANCER SCREENING 2025 FIT TEST 2025 FOBT 2025 SIGMOIDOSCOPY 2025 VIRTUAL COLONOSCOPY 2025 Adult Td,Tdap Booster 04/29/2028 04/29/2018 , 01/28/2014 [...] topic Medical Devices Not on file [place] [place] [address] [place] [address] [place] [address] [place] [address] [place] [address] [place] [address] [place] [address] [place] [address] [place] [address] [place] [address] [place] [address] [employer] Care Teams Sex Therapist Relationship Specialty Start Date End Date Jonna Bolaños MD [address] [place] [id number] PCP - General Internal Medicine 08/05/23 Salvador Marcus MD [address] [place] [address] [email or web address] Historical LMR Provider 08/06/17 Additional Source Comments The information contained in this document represents components of the legal health record. It is not the complete legal health record.[facility]
[2025-08-05 08:20] VITALS: BP 134/72; PULSE 95; RESP 12; TEMP 36.2; O2SAT 99; BMI 46.2
== END 2025-08-05 09:16 | disposition home or self-care (01) ==
LOC: HO.HMCFM 08:12
PROVIDERS: PCP Nurse Practitioner Family; Visit Provider Nurse Practitioner Family
DX: E11.8 Type 2 diabetes mellitus with unspecified complications (principal); G93.5 Compression of brain; E66.01 Morbid (severe) obesity due to excess calories; Z68.42 Body mass index [BMI] 45.0-49.9, adult; E11.65 Type 2 diabetes mellitus with hyperglycemia; Z79.4 Long term (current) use of insulin; F33.1 Major depressive disorder, recurrent, moderate; Z28.21 Immunization not carried out because of patient refusal; F41.1 Generalized anxiety disorder; J45.909 Unspecified asthma, uncomplicated; G47.33 Obstructive sleep apnea (adult) (pediatric)

== ENCOUNTER → 2025-08-05 08:11 | Outpatient (BNVA) | payer OTHER, SELFPAY | PROVIDERS: PCP Nurse Practitioner Family; Visit Provider Nurse Practitioner Family | DX: J45.20 Mild intermittent asthma, uncomplicated (principal); E11.65 Type 2 diabetes mellitus with hyperglycemia; I10 Essential (primary) hypertension; G43.909 Migraine, unspecified, not intractable, without status migrainosus; K58.9 Irritable bowel syndrome, unspecified; G93.2 Benign intracranial hypertension; G47.33 Obstructive sleep apnea (adult) (pediatric); K21.9 Gastro-esophageal reflux disease without esophagitis; M54.2 Cervicalgia; G89.29 Other chronic pain; E66.9 Obesity, unspecified; G47.00 Insomnia, unspecified; F33.1 Major depressive disorder, recurrent, moderate; F41.1 Generalized anxiety disorder; G93.5 Compression of brain; E66.01 Morbid (severe) obesity due to excess calories; Z79.4 Long term (current) use of insulin; Z99.89 Dependence on other enabling machines and devices; Z68.42 Body mass index [BMI] 45.0-49.9, adult; Z28.21 Immunization not carried out because of patient refusal | CPT/HCPCS: 83036; 96160; 99212 ==

== ENCOUNTER 2025-08-11 09:23 | Emergency (ER) | payer OTHER, SELFPAY ==
[2025-08-11 09:38] VITALS: BP 150/71; PULSE 91; RESP 18; TEMP 37; O2SAT 98; BMI 38.3
[2025-08-11 10:47] LABS: MANUAL DIFF FLAG NO
[2025-08-11 10:50] LABS: Hematocrit 41.7 % (37.0-47.0); Hemoglobin 14.0 g/dl (12.0-16.0); Imm Gran Abs Auto 0.03 X10*3/uL (0.00-0.03); Imm Gran Pct Auto 0.4 % (0.0-0.4); Lymphocytes Absolute Auto 1.7 X10*3/uL (1.2-4.9); Mean Corpuscular HGB Conc 33.6 g/dl (31.0-35.0); Mean Corpuscular Hemoglobin 30.0 pg (27.0-33.0); Mean Corpuscular Volume 89.5 fL (80.0-98.0); NRBC Abs Auto 0.000 X10*3/uL (0.0-0.012); NRBC Pct Auto 0.0 /100WBC (0.0-0.2); Platelet Count 221 X10*3/uL (160-400); Red Blood Count 4.66 X10*6/uL (4.20-5.50); White Blood Count 7.0 X10*3/uL (4.8-10.8)
[2025-08-11 11:03] LABS: Alanine Aminotransferase 59 U/L (0-31); Albumin Level 4.0 g/dL (3.5-5.0); Alkaline Phosphatase 71 U/L (39-117); Anion Gap 9 (12-20); Aspartate Amino Transferase 33 U/L (5-31); Blood Urea Nitrogen 12 mg/dL (9-16); Calcium 8.9 mg/dL (8.4-10.2); Carbon Dioxide 25 mmol/L (22-29); Chloride 110 mmol/L (96-108); Creatinine Clr Calc Pharmacy 152.2; Estimated Glomerular Filt Rate > 60; Magnesium 1.8 mg/dL (1.6-2.6); Potassium 4.6 mmol/L (3.3-5.1); Sodium 139 mmol/L (135-145); Total Protein 6.6 g/dL (6.5-8.0)
[2025-08-11 12:05] VITALS: BP 136/72; PULSE 73; RESP 18; TEMP 36.4; O2SAT 97
--- NOTE | 2025-08-11 12:05 | ED.GENADULT ---
HPI - General Adult General Chief complaint: Headache Stated complaint: migraine 5 days Time Seen by Provider: 08/11/25 12:05 Source: patient Mode of arrival: ambulatory Limitations: no limitations History of Present Illness ED Provider: Makayla Bennett PA-C HPI narrative: Patient is a 45 year old assigned female at with a history of migraines, RLS, GERD, DVT, MDD, DM, and asthma presenting to the emergency department today with a migraine headache. Patient states that over the last 5 days she has had a migraine headache that is not getting better. Patient denies any other complaints at this time. Patient denies any trauma. Related Data Home Medications ?Medication ?Instructions ?Recorded ?Confirmed cholecalciferol (vitamin D3) 1,250 1,250 mcg PO QWEEK 03/02/24 08/05/25 mcg (50,000 unit) capsule rimegepant 75 mg disintegrating 75 mg PO Q OTHER DAY 08/19/24 08/05/25 tablet (Nurtec ODT) magnesium L-threonate 48 mg 48 mg PO DAILY 11/17/24 08/05/25 magnesium (667 mg) capsule acetazolamide 500 mg 500 mg PO DAILY 01/04/25 08/05/25 capsule,extended release CoQ-10 400 mg PO DAILY 07/07/25 08/05/25 bupropion HCl 150 mg 24 hr tablet, 150 mg PO QAM 08/05/25 08/05/25 extended release (Wellbutrin XL) clonidine HCl 0.1 mg tablet 0.3 mg PO DAILY 08/05/25 08/05/25 sertraline 100 mg tablet 150 mg PO DAILY 08/05/25 08/05/25 Previous Rx's ?Medication ?Instructions ?Recorded riboflavin (vitamin B2) 400 mg 400 mg PO DAILY 30 days #30 tabs 08/13/23 tablet blood-glucose sensor (FreeStyle #2 ea 08/24/24 Zeynep 3 Sensor device) fluticasone furoate 200 1 inh inhalation DAILY #1 ea 08/24/24 mcg-vilanterol 25 mcg/dose inhalation powder (Breo Ellipta) metoclopramide HCl 5 mg tablet 5 - 10 mg (1 - 2 x 5 mg) PO Q4-6H 10/07/24 nausea and vomiting 30 days #30 tabs onabotulinumtoxinA 200 unit 200 unit IM ONCE 12 weeks #1 ea 10/07/24 solution for injection (Botox) albuterol sulfate 2.5 mg/3 mL 2.5 mg (3 mL) inhalation Q4-6H PRN 10/29/24 (0.083 %) solution for nebulization shortness of breath or wheezing #180 mL insulin glargine 100 unit/mL (3 20 unit (0.2 mL) subcut BID #15 mL 11/17/24 mL) subcutaneous pen (Lantus Solostar U-100 Insulin) pen needle, diabetic 29 gauge x #100 ea 11/17/24 1/ (Ultra-Thin II Insulin Pen Luther) dupilumab 300 mg/2 mL subcutaneous 300 mg (2 mL) subcut Q2W #4 mL 12/01/24 pen injector (Dupixent) ondansetron 4 mg disintegrating 4 - 8 mg (1 - 2 x 4 mg) PO Q6-8H 12/15/24 tablet PRN nausea and vomiting 30 days #40 tabs blood sugar diagnostic (FreeStyle #100 ea 02/17/25 Lite Strips) thiamine HCl (vitamin B1) 100 mg 50 mg (1/2 x 100 mg) PO DAILY #90 02/17/25 tablet tabs Oxygen Home Use #2 ea 02/26/25 celecoxib 100 mg capsule (Celebrex) 100 mg PO Q12H 30 days #60 caps 02/26/25 famotidine 20 mg tablet (Pepcid) 20 mg PO BEDTIME 30 days #30 tabs 02/26/25 oral dosing syringes #100 ea 02/26/25 albuterol sulfate 90 mcg/actuation 2 puff inhalation QID PRN 03/22/25 aerosol inhaler (Ventolin HFA) shortness of breath or wheezing #6.7 grams galcanezumab-gnlm 300 mg/3 mL (100 300 mg (3 mL) subcut Q30D 30 days 03/26/25 mg/mL x 3) subcutaneous syringe #3 mL (Emgality) canagliflozin 300 mg tablet 300 mg PO DAILY #90 tabs 04/26/25 (Invokana) glyburide 5 mg tablet 10 mg (2 x 5 mg) PO BID #360 tabs 04/30/25 lidocaine HCl 2 % mucosal solution 1 ml mucous membrane QID PRN pain 07/22/25 (Lidocaine Viscous) 25 days #100 mL methazolamide 25 mg tablet 50 mg (2 x 25 mg) PO BID 30 days 06/27/25 #120 tabs bisacodyl 5 mg tablet,delayed 10 mg (2 x 5 mg) PO BEDTIME #16 06/29/25 release (Dulcolax (bisacodyl)) tabs polyethylene glycol 3350 17 238 g PO ONCE #238 grams 06/29/25 gram/dose oral powder (Miralax) Allergies Allergy/AdvReac Type Severity Reaction Status Date / Time Heparin Analogues (HEPARIN Allergy Intermediate HIVES, Verified 08/11/25 09:40 AGENTS) RASH, SEVERE BRUISING [facility] Allergy Rash Verified 08/11/25 09:40 Review of Systems Constitutional: Constitutional: Reports as per HPI Eyes: Eyes: Reports as per HPI ENT: Reports as per HPI Cardiovascular: Cardiovascular: Reports as per HPI Respiratory: Respiratory: Reports as per HPI Gastrointestinal: Gastrointestinal: Reports as per HPI Genitourinary: Genitourinary: Reports as per HPI Musculoskeletal: Musculoskeletal: Reports as per HPI Integumentary/Breasts: Skin/Breast: Reports as per HPI Neurologic: Reports as per HPI Psychiatric: Psychiatric: Reports as per HPI Endocrine: Endocrine: Reports as per HPI Hematologic/Lymphatic: Hematologic/Lymphatic: Reports as per HPI Allergic/Immunologic: Allergic/Immunologic: Reports as per HPI PMFSH Past Medical History Attestation statement: The following information was validated with the patient. Source: old records reviewed and nursing notes reviewed Medical History Tear of medial meniscus of right knee Right knee pain Severe persistent asthma GERD (gastroesophageal reflux disease) Pseudotumor cerebri Anxiety Depression Morbid obesity Asthma Sleep apnea Hypertension IBS (irritable bowel syndrome) DVT (deep venous thrombosis) COVID-19 Diabetes Surgical History H/O colonoscopy [place] teeth extracted Hx of carpal tunnel repair Hx of tonsillectomy Hx of knee surgery Family History Family History Maternal Grandfather Substance abuse Heart attack Maternal Grandmother Stomach cancer Father Diabetes Asthma Mother Asthma Social History Social History Household Members: Family Housing: House Are you a primary rn intensive care unit to a significant other at home: No Do you presently have visiting nurse or other home services: No Alcohol intake: current Alcohol intake frequency: does not drink Patient Tobacco Use Status: Never used Tobacco e-Cigarette/Vaping Use: Never Used Second Hand Smoke Exposure: No Advance Directives: Yes Advance Directives on File: Yes Advance Directives Date on File: 06/29/22 service: No Current occupational status: unemployed Cognitive needs: Yes Hearing needs: Yes Vision needs: Yes (wear glasses) Physical Exam ED Vital Signs: Vital Signs - 24 hr 08/11/25 09:38 08/11/25 12:05 08/11/25 12:14 Temperature 98.6 F 97.6 F 97.6 F Pulse Rate 91 73 73 Respiratory Rate 18 18 18 Blood Pressure 150/71 H 136/72 136/72 Pulse Oximetry 98 97 97 Oxygen Delivery Method Room Air Room Air Room Air BMI result Body Mass Index 38.3 Medications Administered Discontinued Medications Generic Name Dose Route Start Last Admin Trade Name Jamey PRN Reason Stop Dose Admin Diphenhydramine HCl 25 mg 08/11/25 12:07 08/11/25 12:12 Diphenhydramine Hcl 25 Mg Capsule PO 08/11/25 12:08 25 mg ONCE ONE Administration Ketorolac Tromethamine 15 mg 08/11/25 12:07 08/11/25 12:12 Ketorolac Tromethamine 15 Mg/Ml Vial IM 08/11/25 12:08 15 mg ONCE ONE Administration Ondansetron HCl 4 mg 08/11/25 12:07 08/11/25 12:12 Ondansetron Odt 4 Mg Tab.Rapdis TRANSLINGU 08/11/25 12:08 4 mg ONCE ONE Administration Medical Decision Making Medical Decision Making MDM Narrative: Patient is a 45 year old assigned female at with a history of migraines, RLS, GERD, DVT, MDD, DM, and asthma presenting to the emergency department today with a migraine headache. Patient's physical exam was unremarkable. Patient's blood work was unremarkable. Patient's urine showed no acute process. I explained my physical exam findings as well as all test results to the patient. I answered all questions asked by the patient. Patient received IM Toradol, PO Benadryl, and ODT Zofran which, upon re-evaluation, she stated it helped her symptoms some. I stressed the importance of the patient taking her medication as directed (either prescribed or as the over the counter packaging recommends). I stressed the importance of the patient following up with her primary care provider and her neurologist. I stressed the importance of the patient returning to the emergency department immediately if her symptoms were to worsen or if she were to develop any dizziness, shortness of breath, difficulty breathing, chest pain, blurry vision, loss of vision, nausea, vomiting, abdominal pain, fever, chills, back pain, or any other complaints. Patient verbalized agreement and understanding with this treatment plan and discharge. Differential Diagnosis Differential Diagnoses: The differential diagnosis associated with the presentation includes Migraine headache Headache Viral illness Admission/Observation Consideration of admission/observation: Escalation of care including admission/observation considered Patient would have been admitted to the hospital had her work up had any findings where hospital admission was appropriate and her clinical presentation warranted hospital admission. Lab Data [facility] Lab Attestation statement: I reviewed the patient's lab results. My interpretation of these results are in the [facility] Rationale portion of this note. 08/11/25 10:44 08/11/25 10:44 Labs: Lab Results 08/11/25 Range/Units 10:44 WBC 7.0 (4.8-10.8) X10*3/uL RBC 4.66 (4.20-5.50) X10*6/uL Hgb 14.0 (12.0-16.0) g/dl Hct 41.7 (37.0-47.0) % MCV 89.5 (80.0-98.0) fL MCH 30.0 (27.0-33.0) pg MCHC 33.6 (31.0-35.0) g/dl RDW 12.6 (11.0-16.0) % Plt Count 221 (160-400) X10*3/uL MPV 8.9 L (9.4-12.3) fL Immature Gran % (Auto) 0.4 (0.0-0.4) % Neut % (Auto) 64.1 (45-73) % Lymph % (Auto) 24.2 (20-40) % Fannin % (Auto) 6.1 (2-11) % Eos % (Auto) 4.8 H (0-4) % Baso % (Auto) 0.4 (0-2) % Lymph # (Auto) 1.7 (1.2-4.9) X10*3/uL Fannin # (Auto) 0.4 (0.1-1.2) X10*3/uL Eos # (Auto) 0.3 (0.0-0.4) X10*3/uL Baso # (Auto) 0.0 (0.0-0.2) X10*3/uL Abs Immat Gran (auto) 0.03 (0.00-0.03) X10*3/uL Absolute Neuts (auto) 4.5 (2.0-8.3) x10*3/uL Absolute Nucleated RBC 0.000 (0.0-0.012) X10*3/uL Nucleated RBC % (auto) 0.0 (0.0-0.2) /100WBC Sodium 139 (135-145) mmol/L Potassium 4.6 (3.3-5.1) mmol/L Chloride 110 H (96-108) mmol/L Carbon Dioxide 25 (22-29) mmol/L Anion Gap 9 L (12-20) BUN 12 (9-16) mg/dL Creatinine 0.54 (0.5-1.4) mg/dL Estim Creat Clear Calc 152.2 Estimated GFR > 60 Random Glucose 291 H (60-115) mg/dL Calcium 8.9 (8.4-10.2) mg/dL Magnesium 1.8 (1.6-2.6) mg/dL Total Bilirubin 0.8 (0.0-1.0) mg/dL AST 33 H (5-31) U/L ALT 59 H (0-31) U/L Alkaline Phosphatase 71 (39-117) U/L Total Protein 6.6 (6.5-8.0) g/dL Albumin 4.0 (3.5-5.0) g/dL Tests considered The following testing was considered but not selected: I considered obtaining a CT scan of the head however, the patient's clinical presentation did not warrant this at this time. Had patient described the headache as different than her usual or trauma was involved, imaging would have been performed. Discharge Plan Discharge Clinical Impression: Migraine Patient Disposition: Home, Self-Care Instructions: Migraine Headache (ED) Additional Instructions: Your work up today was reassuring there is no EMERGENT cause for your migraine. Take your medication as prescribed and follow up with your neurologist. IF you are prescribed home medications and/or you are taking over the counter medications at home - it is very important you continue to do so as prescribed / directed unless told otherwise. Follow up with your primary care provider. Return to the emergency department immediately if your symptoms worsen or if you develop any numbness, tingling, dizziness, shortness of breath, difficulty breathing, chest pain, blurry vision, loss of vision, nausea, vomiting, abdominal pain, fever, chills, back pain, or any other complaints. Please see the information below about our Patient Portal. If you are not yet enrolled in the [facility] Patient Portal, you will receive an enrollment email invitation following your visit to any [facility] care setting. You may also self-enroll in the Patient Portal by visiting our website: [email or web address] The following information is required to access the Patient Portal: - Your [facility] [place] - Your personal home email address (must match what is in your electronic medical record, Registration staff can assist with this) - Name - Date of Capabilities of the Patient Portal: - Message some providers - View upcoming appointments - Access your health summary, medical history, and visit history - View current conditions and allergies - View procedure and lab results - View your medications, including guidelines, side effects, and precautions - Complete pre-appointment questionnaires requested by your provider - Ready summary reports of your office visits and procedures To access the Patient Portal Mobile Louis, follow these directions: - Search Outski in the Louis Store or Experticity Store - Download the Louis - Search for [facility] - Enter your login/password Prescriptions: No Action fluticasone furoate-vilanterol [Breo Ellipta] 200-25 mcg/dose blister with device 1 inh inhalation DAILY Qty: 1 6RF (DME) [employer] Zeynep 3 Sensor Device See Rx Instructions .ROUTE .MEDSUPPLY Qty: 2 0RF Rx Instructions: As directed albuterol sulfate 2.5 mg /3 mL (0.083 %) solution for nebulization 2.5 mg inhalation Q4-6H PRN (Reason: shortness of breath or wheezing) Qty: 180 6RF Dupixent Pen 300 mg/2 mL pen injector 300 mg subcut Q2W Qty: 4 12RF ondansetron 4 mg tablet,disintegrating 4 - 8 mg PO Q6-8H PRN (Reason: nausea and vomiting) 30 Days Qty: 40 3RF albuterol sulfate [Ventolin HFA] 90 mcg/actuation HFA aerosol inhaler 2 puff inhalation QID PRN (Reason: shortness of breath or wheezing) Qty: 6.7 5RF Emgality Syringe 300 mg/3 mL (100 mg/mL x 3) syringe 300 mg subcut Q30D 30 Days Qty: 3 6RF Rx Instructions: [place] APPROVED 03/26/25-06/24/25 Invokana 300 mg tablet 300 mg PO DAILY Qty: 90 0RF lidocaine HCl [Lidocaine Viscous] 2 % solution 1 ml mucous membrane QID PRN (Reason: pain) 25 Days Qty: 100 3RF Rx Instructions: 1ml applied to left intranasal passage, MR x's 1 in 15 minutes. Max 4 doses (4ml) per nasal passage per day. CoQ-10 tablet 400 mg PO DAILY riboflavin (vitamin B2) 400 mg tablet 400 mg PO DAILY 30 Days Qty: 30 6RF (DME) FreeStyle Lite Strips Strip See Rx Instructions .MEDSUPPLY Qty: 100 11RF Rx Instructions: daily thiamine HCl (vitamin B1) 100 mg tablet 50 mg PO DAILY Qty: 90 2RF acetazolamide 500 mg capsule, extended release 500 mg PO DAILY celecoxib [Celebrex] 100 mg capsule 100 mg PO Q12H 30 Days Qty: 60 3RF (DME) oral dosing syringes Syringe See Rx Instructions .MEDSUPPLY Qty: 100 6RF Rx Instructions: 1 mL syringes without needle. To be used as directed with viscous lidocaine intranasal order. (DME) Oxygen Home Use Kit See Rx Instructions .Route Qty: 2 6RF Rx Instructions: Start home O2 at 15-25 L/min via non-rebreather facemask x's 15-20 minutes at onset of cluster headache attack. Patient will require both M tanks and E tanks. famotidine [Pepcid] 20 mg tablet 20 mg PO BEDTIME 30 Days Qty: 30 1RF bupropion HCl [Wellbutrin XL] 150 mg tablet extended release 24 hr 150 mg PO QAM clonidine HCl 0.1 mg tablet 0.3 mg PO DAILY cholecalciferol (vitamin D3) 1,250 mcg (50,000 unit) capsule 1,250 mcg PO QWEEK Botox 200 unit recon soln 200 unit IM ONCE 84 Days Qty: 1 3RF Rx Instructions: inject 155 units IM across forehead, scalp, and neck metoclopramide HCl 5 mg tablet 5 - 10 mg PO Q4-6H MDD 4 tabs 30 Days Qty: 30 3RF Nurtec ODT 75 mg tablet,disintegrating 75 mg PO Q OTHER DAY magnesium L-threonate 48 mg magnesium (667 mg) capsule 48 mg PO DAILY insulin glargine [Lantus Solostar U-100 Insulin] 100 unit/mL (3 mL) insulin pen 20 unit subcut BID Qty: 15 12RF (DME) pen needle, diabetic [Ultra-Thin II Ins Pen Luther] 29 gauge x 1/2 needle See Rx Instructions .Route Qty: 100 12RF Rx Instructions: As directed glyburide 5 mg tablet 10 mg PO BID Qty: 360 2RF methazolamide 25 mg tablet 50 mg PO BID 30 Days Qty: 120 1RF bisacodyl [Dulcolax (bisacodyl)] 5 mg tablet,delayed release (DR/EC) 10 mg PO BEDTIME Qty: 16 0RF Rx Instructions: Start taking 2 tablet every night 7 days before the procedure and 1 day before procedure take 4 tablets at noon time followed by MiraLax prep polyethylene glycol 3350 [Miralax] 17 gram/dose powder 238 g PO ONCE Qty: 238 0RF Rx Instructions: As directed by gastroenterology department at [facility] sertraline 100 mg tablet 150 mg PO DAILY Referrals: Madison Travis, PROGRAM ENGAGEMENT DIRECTOR-BC [Primary Care Provider, Internal Medicine] Interventions: ED Discharge Assessment Last Done: 08/11/25 12:14 Discharge Date/Time: 08/11/25 12:16 Print Language: Venezuelan
[2025-08-11 12:14] VITALS: BP 136/72; PULSE 73; RESP 18; TEMP 36.4; O2SAT 97
--- OUTSIDE RECORDS SUMMARY | 2025-08-11 13:51 | XMS_ITS | Clinical Summary ---
Author Organization [facility] ity Address [address] [place] [address] Care Team Providers Care Ship Pilot Name Role Phone Nicola Spears MD Primary Care Provider [phone] Surgical History Surgery Date Site/Laterality Comments CARPAL TUNNEL RELEASE PROCEDURE: UT NEUROPLASTY &/TRANSPOS MEDIAN NRV CARPAL TUNNE; COMMENT: bilateral TONSILLECTOMY PROCEDURE: HISTORICAL TONSILLECTOMY COLONOSCOPY 05/01/2018 PROCEDURE: OUTSIDE COLONOSCOPY; COMMENT: diminutive tubular adenoma polyp. random colonic bx normal. KNEE ARTHROSCOPY W/ MENISCAL REPAIR 12/11/2019 PROCEDURE: UT ARTHROSCOPY KNEE W/MENISCUS RPR MEDIAL/LATERAL; COMMENT: root [...] h BMI of 45.0-49.9, adult ([facility]) Tubular adenoma of colon 05/15/2018 DX:Tubu lar adenoma of colon Irritable bowel syndrome wit h diarrhea 08/05/2018 DX:Irritable bowel syndrome with diarrhea Moderate persistent asthma w ith acute exacerbation 01/05/2019 DX:Moderate persistent asthm a with acute exacerbation DM (diabetes mellitus), type 2 with renal complications ([facility]/HCC V24, [facility]/HCC V28) 04/29/2018 DX:DM (diabetes mellitus), t ype 2 with renal complications ([facility]) Family History Medical History Relation Name [...] age to complete this topic Care Teams Ship Pilot Relationship Specialty Start Date End Date Nicola Spears MD [address] [place] [id number] PCP - General Internal Medicine 10/27/21
--- OUTSIDE RECORDS SUMMARY | 2025-08-11 13:51 | XMS_ITS | Clinical Summary ---
Author Organization [facility] Address [address] [address] Phone Care Team Providers Care Crepe Maker Name Role Phone Salvador Marcus MD Unavailable [phone] Jonna Bolaños MD Primary Care Provider [...] topic Medical Devices Not on file [place] [address] [place] [address] [place] [address] [place] [address] [place] [address] [place] [address] [place] [address] [place] [address] [place] [address] [place] [address] [place] [place] [address] ACO Care Teams Crepe Maker Relationship Specialty Start Date End Date Jonna Bolaños MD [address] [place] [id number] PCP - General Internal Medicine 08/05/23 Salvador Marcus MD [address] [place] [address] [email or web address] Historical LMR Provider 08/06/17 Additional Source Comments The information contained in this document represents components of the legal health record. It is not the complete legal health record.[facility]
== END 2025-08-11 12:16 | disposition home or self-care (01) ==
PROVIDERS: Physician Assistant Medical; Emergency Provider Emergency Medicine; PCP Nurse Practitioner Family
DX: G43.909 Migraine, unspecified, not intractable, without status migrainosus (principal); Z79.899 Other long term (current) drug therapy
CPT/HCPCS: 36415; 80053; 83735; 85025; 96372; 99283; 99284; J1885

== ENCOUNTER 2025-09-07 08:14 | Outpatient (AMB) | payer OTHER, SELFPAY ==
[2025-09-07 08:22] VITALS: BP 130/82; PULSE 84; O2SAT 98; BMI 45.7
--- NOTE | 2025-09-07 08:22 | MHC.OFFVIS ---
Vital Signs 09/07/25 08:22 Height 4 ft 11 in Weight 226 lb 2 oz BMI 45.7 BP 130/82 Blood Pressure Location Rt brachial Position Sitting Pulse 84 Pulse Source Pulse Oximeter Pulse Oximetry (%) 98 Oxygen Delivery Method Room Air Intake Visit Reasons: Botox Intake Note: Botox 200 B+B Enrollment Services Vice President Required: No Accompanied by: Sister Allergies Heparin Analogues (HEPARIN AGENTS) Allergy (Intermediate, Verified 09/07/25 08:22) HIVES, RASH, SEVERE BRUISING dulaglutide (From Trulicity) Allergy (Verified 09/07/25 08:22) Rash Medication List - Last Reconciled 09/07/25 by Guerline Fernandez MD acetazolamide ER 500 mg PO DAILY albuterol sulfate 2.5 mg (3 mL) inhalation Q4-6H PRN albuterol sulfate 90 mcg/actuation (Ventolin HFA) 2 puffs inhalation QID PRN baclofen 10 mg PO DAILY blood sugar diagnostic (FreeStyle Lite Strips) daily blood-glucose sensor (FreeStyle Zeynep 3 Sensor device) As directed bupropion HCl XL (Wellbutrin XL) 150 mg PO QAM canagliflozin (Invokana) 300 mg PO DAILY celecoxib (Celebrex) 100 mg PO Q12H 30 days cholecalciferol (vitamin D3) 1,250 mcg PO QWEEK clonidine HCl 0.3 mg PO DAILY [CoQ-10 400 mg PO DAILY] dupilumab (Dupixent) 300 mg (2 mL) subcut Q2W famotidine (Pepcid) 20 mg PO BEDTIME 30 days fluticasone furoate-vilanterol 200-25 mcg/dose (Breo Ellipta) 1 inh inhalation DAILY galcanezumab-gnlm (Emgality) 300 mg (3 mL) subcut Q30D 30 days glyburide 10 mg (2 x 5 mg) PO BID indomethacin 50 mg PO BID insulin glargine (Lantus Solostar U-100 Insulin) 20 units (0.2 mL) subcut BID lidocaine HCl 2% (Lidocaine Viscous) 1 mL mucous membrane QID PRN 25 days magnesium L-threonate 48 mg PO DAILY methazolamide 50 mg (2 x 25 mg) PO BID 30 days metoclopramide HCl 5 - 10 mg (1 - 2 x 5 mg) PO Q4-6H 30 days MDD 4 tabs onabotulinumtoxinA (Botox) 200 units IM ONCE 12 weeks ondansetron 4 - 8 mg (1 - 2 x 4 mg) PO Q6-8H PRN 30 days oral dosing syringes 1 mL syringes without needle. To be used as directed with viscous lidocaine intranasal order. Oxygen Home Use Start home O2 at 15-25 L/min via non-rebreather facemask x's 15-20 minutes at onset of cluster headache attack. Patient will require both M tanks and E tanks. pen needle, diabetic (Ultra-Thin II Insulin Pen Belcher) As directed riboflavin (vitamin B2) 400 mg PO DAILY 30 days rimegepant (Nurtec ODT) 75 mg PO Q OTHER DAY sertraline 150 mg PO DAILY thiamine HCl (vitamin B1) 50 mg (1/2 x 100 mg) PO DAILY HPI Comments Details: ? 45y/o female comes for treatment of migraines with botox. ??? Most frequent reported adverse reactions following injection of botox for chronic migraine include neck pain (9%), headache(5%), eyelid ptosis(4%), migraine(4%), muscular weakness(4%), musculuskeletal stiffness(4%), bronchitis(3%), injection site pain (3%), musculoskeletal pain(3%), myalgia(3%), facial paresis(2%), HTN(2%) and muscle spasms(2%) were discussed in detail. ??? Botulinum toxin typeA 200units Lot no [id number] March 2027 was diluted with 4 cc of normal saline . ??? Muscles injected- ??? Frontalis 4 sites ??? Procerus 1 site ??? Hide Worker- 2 sites ??? Temporalis- 8 sites ??? Occipitalis- 6 sites ??? Cervical paraspinals- 4 sites ??? Trapezius- 6 sites- 10 units each ??? 5 units each in 31 site ??? Total use- 185units ??? Discarded-15units [facility] Medical History Tear of medial meniscus of right knee Right knee pain Severe persistent asthma GERD (gastroesophageal reflux disease) Pseudotumor cerebri Anxiety Depression Morbid obesity Asthma Sleep apnea Hypertension IBS (irritable bowel syndrome) DVT (deep venous thrombosis) COVID-19 Diabetes Surgical History H/O colonoscopy [place] teeth extracted Hx of carpal tunnel repair Hx of tonsillectomy Hx of knee surgery Family History Maternal Grandfather Substance abuse Heart attack Maternal Grandmother Stomach cancer Father Diabetes Asthma Mother Asthma Social History Household Members: Family Housing: House Are you a primary child care counselor to a significant other at home: No Do you presently have visiting nurse or other home services: No 75 years or older and lives alone: No Alcohol intake: current Alcohol intake frequency: does not drink Patient Tobacco Use Status: Never used Tobacco e-Cigarette/Vaping Use: Never Used Second Hand Smoke Exposure: No Advance Directives Date on File: 06/29/22 service: No Current occupational status: unemployed Cognitive needs: Yes Hearing needs: Yes Vision needs: Yes (wear glasses) Physical Exam Vital Signs: Last Vital Signs Pulse 84 09/07/25 08:22 BP 130/82 09/07/25 08:22 Pulse Ox 98 09/07/25 08:22 Oxygen Delivery Method Room Air 09/07/25 08:22 BMI result Body Mass Index 45.7 Const General: cooperative and no acute distress Orientation/consciousness: patient oriented x3 Resp Effort & Inspection: normal respiratory effort and able to speak in complete sentences Neuro General: patient oriented x3 and moves all extremities Cranial nerves: Yes CN's II-XII intact bilaterally Cognition (Neuro): normal cognition Psych Appearance: grossly normal Mental Status: mental status grossly normal Speech and movement: Normal speech and movement present Affect: normal affect Attitude: cooperative Office Procedures Botulinum toxin Injection 45360 - Migraine Procedure code (CPT) selection complete Office Meds onabotulinumtoxinA 200 unit solution for injection Performing Provider: Guerline Fernandez MD Performing Location: [facility] Administered by: Guerline Fernandez MD on 09/07/25 09:57 Dose Route Admin Location Dispensed Lot Number Expiration Date [facility] Rn Allergy 185 unit subcut 200 units [id number] ALLERGAN/BOTOX Total Dispensed Waste 200 units 7.5 % Comments: see hpi Assessment & Plan Assessment & Plan (1) Chronic migraine without aura: Code(s): G43.709 - Chronic migraine without aura, not intractable, without status migrainosus Category: Medical Qualifiers: Status migrainosus presence: without status migrainosus Intractability: not intractable Qualified Code(s): G43.709 - Chronic migraine without aura, not intractable, without status migrainosus (2) Obstructive sleep apnea: Comment: should be on CPAP but cannot tolerate Code(s): G47.33 - Obstructive sleep apnea (adult) (pediatric) Category: Medical Plan Patient tolerated the procedure well she will call with any side effects Orders: Orders AMB Botulinum toxin Injection Today G43.709 - Chronic migraine without aura, not intractable, without status migrainosus Coding Level of Care Code Est Pt Level 1 (23587) Diagnoses Chronic migraine without aura without status migrainosus, not intractable G43.709 Status migrainosus presence: without status migrainosus Intractability: not intractable Obstructive sleep apnea G47.33 CPT Codes Botox Injection - Botox 3: 42373 - Migraine ([id number])
== END 2025-09-07 16:01 | disposition home or self-care (01) ==
LOC: HO.HSMS 08:15
PROVIDERS: PCP Nurse Practitioner Family; Visit Provider Psychiatry & Neurology Neurology
DX: G43.709 Chronic migraine without aura, not intractable, without status migrainosus (principal)
CPT/HCPCS: 64615

== ENCOUNTER → 2025-09-07 08:14 | Outpatient (BNVA) | payer OTHER, SELFPAY | PROVIDERS: PCP Nurse Practitioner Family; Visit Provider Psychiatry & Neurology Neurology | DX: G43.709 Chronic migraine without aura, not intractable, without status migrainosus (principal); G47.33 Obstructive sleep apnea (adult) (pediatric) | CPT/HCPCS: 64615; 99211; J0585 ==